=== PATIENT | female | born 1945 | race Caucasian/White ===

== ENCOUNTER → 2017-03-27 | Outpatient (CLI) | payer MEDICARE, OTHER ==
[~2017-03-27] MED LIST: ACET-2469 PO; ACHD5005 PO; ACID1TAB5 PO; ALPR1T PO; ALPR1TAB7 PO; AMIO200T2 PO; AMLO5TAB2 PO; APIX5TAB PO; ATEN25TA PO; BUSP5TAB59 PO; CPR250T PO; ENAL2.5T PO; ESCI20TA38 PO; KCL20TCR PO; LISI1TAB PO; MELO15TA14 PO; METO-272 PO; METR500T PO; NFPRILOC40 PO; PANT40TA PO; PRAV40TA PO; PRD20T PO; PRM25T PO; SERT50TA2 PO; TRAM50TA2 PO; [UNRECOGNIZED DRUG - OTHER] PO
--- NOTE | 2017-03-27 14:22 | Diagnostic Imaging Report ---
EXAMINATION: DEXA scan. INDICATION: Osteopenia. TECHNIQUE: Bone mineral density estimated based on dual energy radiography over the lumbar spine and femoral necks, was performed. FINDINGS: T score in the left femoral neck is -2.3 and on the right side is -2.3. The lumbar spine could not be measured due to fusion hardware. IMPRESSION: Osteopenia. Dictated by: Dictated on workstation # [id number]
== END ==
LOC: RAD 09:33
PROVIDERS: ATTEND Internal Medicine
DX: M85.89 Other specified disorders of bone density and structure, multiple sites (principal)
CPT/HCPCS: 77080

== ENCOUNTER 2017-06-04 21:36 | Emergency (ER) | payer MEDICARE, OTHER ==
[~2017-06-04] VITALS: Ht 162.6 cm; Wt 72.6 kg
[~2017-06-04 21:36] MED LIST changes: -METO-272 PO; +METO-370 PO
[2017-06-04] MEDS ORDERED: cloNIDine 0.1 MG (CATAPRES) TAB PO ONE (22:15)
[2017-06-04] MEDS ORDERED: meTOproloL SUCCINATE 50 MG (TOPROL XL) TAB PO SCH (22:15)
[2017-06-04] MEDS ORDERED: TRAM50TA2 (22:27)
[2017-06-04] MEDS ORDERED: FENO200C (22:27)
[2017-06-04] MEDS ORDERED: ENAL20TA PO (22:27)
--- NOTE | 2017-06-04 22:41 | ED General ---
General Chief Complaint: Cardiac/General Problems Stated Complaint: HIGH BLOOD PRESSURE Nursing Triage Note: Amb to ED to report she checked her BP this evening after having an elevated BP at the orthopedic office this afternoon. Pt came to be evaluated for management of elevated BP with any sx present. Nursing Sepsis Screen: No Definite Risk Source of Information: Patient Exam Limitations: No Limitations History of Present Illness Time Seen by Provider: 22:06 Initial Comments Here with report of elevated blood pressure tonight. She checked it this evening because she was noted to have elevated blood pressure at her doctor's office today. It was still elevated tonight. She has not had her night dose of Toprol-XL. Denies chest pain, breathing problems, nausea, vomiting or sweating. He states that she would not have known that her blood pressure was elevated as she had not checked it. She has had recent adjustments of her blood pressure medicines due to resistance. Timing/Duration: 1-3 Hours Severity: Mild Associated Systoms: No Chest Pain, No Cough, No Diaphoresis, No Fever/Chills, No Headaches, No Nausea/Vomiting, No Shortness of Air, No Weakness Allergies and Home Medications Allergies Coded Allergies: amoxicillin (Verified Allergy, Unknown, hives, 11/09/16) clavulanic acid (Verified Allergy, Unknown, hives, 11/09/16) Home Medications Acetaminophen/Diphenhydramine 1 Each Tablet, 1 TAB PO HS, (Reported) Alprazolam 1 Mg Tablet, 1 MG PO BID, (Reported) Amiodarone HCl 200 Mg Tablet, 400 MG PO BID, #60 Ref 4 Prescribed by: RENÉ GR on 02/21/16 1529 Apixaban 5 Mg Tablet, 5 MG PO BID, (Reported) Buspirone HCl 5 Mg Tablet, 5 MG PO DAILY, (Reported) Enalapril Maleate 20 Mg Tablet, #30 (Reported) Fenofibrate,Micronized 200 Mg Capsule, #30 (Reported) Metoprolol Succinate 50 Mg Tab.er.24h, 50 MG PO BID, (Reported) Omeprazole 40 Mg Cap, 40 MG PO DAILY, (Reported) Pravastatin Sodium 40 Mg Tablet, 40 MG PO HS, (Reported) Sertraline HCl 50 Mg Tablet, 50 MG PO DAILY, (Reported) Tramadol HCl 50 Mg Tablet, #40 (Reported) Constitutional: see HPI, No chills, No fever EENTM: no symptoms reported Respiratory: no symptoms reported Cardiovascular: see HPI Gastrointestinal: no symptoms reported Genitourinary: no symptoms reported Musculoskeletal: no symptoms reported All Other Systems Reviewed Negative Unless Noted: Yes Past Ycdacng-Stpxhw-Aumhar Hx Patient Social History Alcohol Use: Rarely Uses Recreational Drug Use: No Smoking Status: Never a Smoker Recent Foreign Travel: No Contact w/Someone Who Travel: No Recent Infectious Disease Expo: No Recent Hopitalizations: No Immunizations Up To Date Tetanus Booster (TDap): Unknown PED Vaccines UTD: Yes Date of Pneumonia Vaccine: Feb 03, 2013 Date of Influenza Vaccine: Oct 16, 2016 Seasonal Allergies Seasonal Allergies: No Surgeries HX Surgeries: Yes (BACK SURGERY 8 YEARS AGO, BILAT TKR) Surgeries: Appendectomy Respiratory Hx Respiratory Disorders: No Cardiovascular Hx Cardiac Disorders: Yes (IMPLANTED HEART MONITOR PLACED BEGINNING OF 2015) Cardiac Disorders: Hypertension Neurological Hx Neurological Disorders: No Reproductive System Hx Reproductive Disorders: No Sexually Transmitted Disease: No Genitourinary Hx Genitourinary Disorders: No Gastrointestinal Hx Gastrointestinal Disorders: Yes Gastrointestinal Disorders: Gastroesophageal Reflux Musculoskeletal Hx Musculoskeletal Disorders: Yes (BACK SURGERY 8 YEARS AGO-MILD PAIN-6 SCREWS AND 2 RODS) Musculoskeletal Disorders: Arthritis, Chronic Back Pain Endocrine Hx Endocrine Disorders: No HEENT HX ENT Disorders: No Cancer Hx Cancer: No Psychosocial Hx Psychiatric Problems: Yes Behavioral Health Disorders: Anxiety, Depression Integumentary HX Skin/Integumentary Disorder: No Blood Transfusions Hx Blood Disorders: No Adverse Reaction to a Blood Tr: Yes (WHEN SHE HAD BACK SURGERY, NO REACTION) Reviewed Nursing Assessment Reviewed/Agree w Nursing PMH: Yes Family Medical History Significant Family History: Heart Disease Family Medial History: Cardiovascular disease 19 FATHER (mi) Dementia 19 MOTHER Physical Exam Vital Signs Vital Sign - Last 12Hours 06/04/17 21:52 Temp 98.9 Pulse 70 Resp 20 B/P (MAP) 200/119 Pulse Ox 97 O2 Delivery Room Air Capillary Refill : Less Than 3 Seconds General Appearance: No Apparent Distress, WD/WN HEENT: PERRL/EOMI, Pharynx Normal Neck: Non Tender, Supple Respiratory: Lungs Clear, Normal Breath Sounds Cardiovascular: Regular Rate, Rhythm, No Murmur Gastrointestinal: Non Tender, Soft Back: Normal Inspection, No CVA Tenderness, No Vertebral Tenderness Extremity: Non Tender, No Calf Tenderness Neurologic/Psychiatric: Alert, Oriented x3, No Motor/Sensory Deficits Skin: Normal Color, Warm/Dry Progress/Results/Core Measures Results/Orders My Orders Orders - ALTON RICHARDS MD Clonidine Tablet (Catapres Tablet) (06/04/17 22:15) Metoprolol Succinate (Xl) Tab (Toprol Xl (06/04/17 22:15) Medications Given in ED Current Medications Medications Dose Ordered Sig/Rachel Route Start Time Stop Time Status Last Admin Dose Admin Clonidine HCl 0.1 mg ONCE ONCE PO 06/04/17 22:15 06/04/17 22:16 DC 06/04/17 22:10 0.1 MG Vital Signs/I&O Vital Sign - Last 12Hours 06/04/17 21:52 Temp 98.9 Pulse 70 Resp 20 B/P (MAP) 200/119 Pulse Ox 97 O2 Delivery Room Air Blood Pressure Mean: 146 Progress Note : Progress Note Seen and evaluated. Clonidine 0.1 mg by mouth. Toprol-XL 50 mg by mouth. Monitor patient. 2251: Blood pressure 152/90 with heart rate is 62. No distress. Discharge home with return precautions. Patient verbalize understanding instructions and agreement with plan. Departure Impression Impression: Primary Impression: Hypertension, uncontrolled Disposition: 01 HOME, SELF-CARE Condition: Improved Departure-Patient Inst. Referrals: VALENCIA DUNN DO (PCP/Family) Primary Care Physician Patient Instructions: High Blood Pressure (DC) Add. Discharge Instructions: All discharge instructions reviewed with patient and/or family. Voiced understanding. Continue medications as directed. Call Dr. Dunn in the morning for recheck tomorrow or the next day. Return for worsening, fever, vomiting, weakness, breathing problems, chest pain or other concerns as needed. ALTON RICHARDS MD Jun 04, 2017 22:41
[2017-06-04 23:13] VITALS: BP 157/100
--- OUTSIDE RECORDS SUMMARY | 2017-06-12 02:20 | XMS REPORT | Clinical Summary ---
Author Author [facility] Organization [facility] Address Unknown Phone Unavailable Care Team Providers Care Medication Coordinator Name Role Phone PCP Unavailable Source Comments Some departments are not documenting in the electronic medical record. If you do not see the information that you expected, contact Release of Information in the Health Information Management department at [phone] for further assistance in locating additional records.[facility] Allergies Active Allergy Reactions Severity Noted Date Comments Aspirin UNKNOWN Low 04/02/2017 Barbiturates UNKNOWN Low 04/02/2017 Carbamazepine UNKNOWN Low 04/02/2017 Iodinated Contrast- Oral UNKNOWN Low 04/02/2017 And Iv Dye Ibuprofen UNKNOWN Low 04/02/2017 Penicillin G UNKNOWN Low 04/02/2017 Phenytoin Sodium Extended UNKNOWN Low 04/02/2017 Sulfa (Sulfonamide UNKNOWN Low 04/02/2017 Antibiotics) Tetracycline UNKNOWN Low 04/02/2017 Current Medications Prescription Sig. Disp. Refills Start End Date Status Date alprazolam (XANAX) 1 mg Take 1 mg by mouth twice Active PO tablet daily. 1 BY MOUTH TWICE A DAY ACETAMINOPHEN/DIPHENHYDRA Take by mouth. Active MINE (TYLENOL PM PO) amiodarone (CORDARONE) Take 200 mg by mouth Active 200 mg tablet daily. apixaban (ELIQUIS) 5 mg Take 5 mg by mouth twice Active tab tablet daily. enalapril (VASOTEC) 2.5 Take 2.5 mg by mouth Active mg tablet daily. magnesium oxide (MAG-OX) Take 400 mg by mouth Active 400 mg tablet daily. metoprolol XL (TOPROL XL) Take 50 mg by mouth Active 50 mg tablet daily. omeprazole DR(+) Take 40 mg by mouth Active (PRILOSEC) 40 mg capsule daily. pravastatin (PRAVACHOL) Take 40 mg by mouth Active 40 mg tablet daily. sertraline (ZOLOFT) 50 mg Take 50 mg by mouth Active tablet daily. busPIRone (BUSPAR) 5 mg Take 5 mg by mouth daily. 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 Encounters Date Type Specialty Care Team Description 04/02/2017 Procedure visit Otolaryngology Kayla Baldwin MD Adductor spasmodic dysphonia with tremor (Primary Dx);Dysphonia from Last 3 Months Family History Medical History Relation Name Comments Angina Father Heart Attack Father High Cholesterol Father Anxiety Mother Depression Mother Hypertension Mother Mental Illness Mother Relation Name Status Comments Father Mother Social History Tobacco Use Types Packs/Day Years Used Date Never Smoker Smokeless Tobacco: Never Used Alcohol Use Drinks/Week oz/Week Comments Yes 1 Glasses of 0.6 wine Sex Assigned at Date Recorded Not on file Last Filed Vital Signs Vital Sign Reading Time Taken Blood Pressure 191/100 04/02/2017 10:48 AM CDT Pulse 64 04/02/2017 10:48 AM CDT Temperature - - Respiratory Rate - - Oxygen Saturation - - Inhaled Oxygen - - Concentration Weight 74.8 kg (165 lb) 09/04/2016 9:52 AM CDT Height 165.1 cm (5' 5") 09/04/2016 9:52 AM CDT Body Mass Index 27.46 09/04/2016 9:52 AM CDT Plan of Treatment Health Maintenance Due Date Last Done Comments HEPATITIS C SCREENING 1946 PHYSICAL (COMPREHENSIVE) 1953 EXAM PERTUSSIS VACCINE 1957 TETANUS VACCINE 1963 BREAST CANCER SCREENING 1986 COLORECTAL CANCER 1996 SCREENING SHINGLES VACCINE 2006 OSTEOPOROSIS SCREENING 2011 PREVNAR/PNEUMOVAX (#1) 2011 INFLUENZA VACCINE 07/18/2017 Results * DE CHEMODENERVATION MUSCLE LARYNX UNILAT W/EMG (04/02/2017 11:04 AM) Specimen Performing Laboratory IN CLINIC from Last 3 Months
--- OUTSIDE RECORDS SUMMARY | 2017-06-12 02:20 | XMS REPORT ---
Author Author MENDOZA CATHLEEN [facility] Address Unknown Care Team Providers Care Hims Manager Name Role Phone CATHLEEN DONALDSON Unavailable PROBLEMS Type Condition ICD9-CM Code MSN86-EB Code Onset Dates Condition Status SNOMED Code Problem Pain in joint, pelvic region and thigh 719.45 Active 193848152 Assessment Dental examination Z01.20 Sep, Active 856896870 ALLERGIES Substance Reaction Event Type Date Status N.K.D.A. Unknown Non Drug Allergy Sep, Unknown SOCIAL HISTORY No smoking Hx information available PLAN OF CARE VITAL SIGNS Blood pressure systolic 151 mmHg 2016-09-17 Blood pressure diastolic 94 mmHg 2016-09-17 MEDICATIONS Medication Instructions Dosage Frequency Start Date End Date Duration Status Atenolol Active hydrochlorothiazide-lisinopril 20-12.5 mg take 1 tablet by Oral route 2 times per day May, Active BusPIRone HCl Active Norvasc Active Lexapro 20 mg take 1 tablet (20 mg) by oral route once daily May, Active Enalapril Maleate Active Metoprolol-HCTZ ER Active pravastatin 40 mg 1 tablet by Oral route 1 time per dayTake at bedtime. Avoid grapefruit juice and products with grapefruit. Jan, Active Xanax 1 mg 1 tablet by Oral route 2 times per day Apr, Active Aciphex 20 mg take 1 tablet (20 mg) by oral route once daily after the morning meal May, Active Eliquis Active Prilosec Active Sertraline HCl Active Zoloft Active Alprazolam Active Crestor Active RESULTS No Results PROCEDURES Procedure Date Ordered Related Diagnosis Body Site LTD ORAL EVALUATION - PROBLEM FOCUS Sep 17, 2016 INTRAORL-PERIAPICAL 1 FILM 57542 Sep 17, 2016 IMMUNIZATIONS No Known Immunizations
--- OUTSIDE RECORDS SUMMARY | 2017-06-12 02:21 | XMS REPORT ---
Author CATHLEEN [facility] [employer] Address Unknown Phone Unavailable Care Team Providers Care Line Painting Machine Operator Name Role Phone CATHLEEN DONALDSON Unavailable Allergies, Adverse Reactions, Alerts Substance Reaction Event Type N.K.D.A. Info Not Available Non Drug Allergy Problems Problem Type Condition Code Onset Dates Condition Status Assessment Dental examination Z01.20 Active Problem Pain in joint, pelvic region and thigh 719.45 Active Medications Medication Code System Code Instructions Start Date End Date Status Dosage Aciphex [facility] [address]-55 20 mg 1 ERT orally once a day May 21, 2012 take 1 tablet (20 mg) by oral route once daily after the morning meal hydrochlorothiazide-lisinopril [facility] 0 20-12.5 mg May 21, 2012 take 1 tablet by Oral route 2 times per day Zoloft [facility] 0 not defined BusPIRone HCl [facility] [address]-85 not defined Lexapro [facility] [address]-52 20 mg 1 TAB orally once a day May 21, 2012 take 1 tablet (20 mg) by oral route once daily Xanax [facility] [address]-08 1 mg 1 tab(s) orally 3 times a day May 07, 2012 1 tablet by Oral route 2 times per day Eliquis [facility] [address]-18 not defined Atenolol [facility] [address]-58 not defined Prilosec [facility] [address]-21 not defined Norvasc [facility] [address]-44 not defined pravastatin [facility] [address]-68 40 mg January 28, 2012 1 tablet by Oral route 1 time per dayTake at bedtime. Avoid grapefruit juice and products with grapefruit. Procedures Procedure Coding System Code Date Billing Notes on claim CPT-4 EC109 May 30, 2016 RSN COMPOS-4/> SURF/W/INCISAL ANG CPT-4 D2335 May 30, 2016 Vital Signs Date/Time: May 30, 2016 Blood Pressure Diastolic 93 mmHg Blood Pressure Systolic 142 mmHg Height 65 in Results No Known Results Summary Purpose [employer] Submission
--- OUTSIDE RECORDS SUMMARY | 2017-06-12 02:21 | XMS REPORT ---
Author Author CATHLEEN DONALDSON [employer] Address Unknown Phone Unavailable Care Team Providers Care Finishing Machine Tender Name Role Phone CATHLEEN DONALDSON CP Unavailable Allergies, Adverse Reactions, Alerts Substance Reaction Event Type N.K.D.A. Info Not Available Non Drug Allergy Problems Problem Type Condition Code Onset Dates Condition Status Assessment Encounter for dental examination Z01.20 Active Problem Pain in joint, pelvic region and thigh 719.45 Active Medications Medication Code System Code Instructions Start Date End Date Status Dosage BusPIRone HCl [facility] [address]-69 not defined Abilify [facility] [address]-49 2 mg 1 TAB orally once a day May 08, 2012 1 tablet by Oral route 1 time per day Aciphex [facility] [address]-25 20 mg 1 ERT orally once a day May 21, 2012 take 1 tablet (20 mg) by oral route once daily after the morning meal pravastatin [facility] [address]-54 40 mg January 28, 2012 1 tablet by Oral route 1 time per dayTake at bedtime. Avoid grapefruit juice and products with grapefruit. Norvasc [facility] [address]-95 not defined Xanax [facility] [address]-61 1 mg 1 tab(s) orally 3 times a day May 07, 2012 1 tablet by Oral route 2 times per day Lexapro [facility] [address]-59 20 mg 1 TAB orally once a day May 21, 2012 take 1 tablet (20 mg) by oral route once daily Atenolol [facility] [address]-48 not defined Mobic [facility] [address]-78 not defined hydrochlorothiazide-lisinopril [facility] 0 20-12.5 mg May 21, 2012 take 1 tablet by Oral route 2 times per day Mobic [facility] [address]-77 15 mg Quantity Amount, Route, and Frequency Sep 15 mg by Oral route 1 time per dayNo other ibuprofen products with this Prilosec [facility] [address]-25 not defined Zoloft NDC 0 not defined Procedures Procedure Coding System Code Date RESIN COMPOS - 1 SURFACE POSTERIOR CPT-4 D2391 Nov 21, 2015 Vital Signs Date/Time: Nov 21, 2015 Blood Pressure Diastolic 65 mmHg Blood Pressure Systolic 109 mmHg Height 65 in Results No Known Results Summary Purpose [employer] Submission
--- OUTSIDE RECORDS SUMMARY | 2017-06-12 02:21 | XMS REPORT ---
Author TENISHA Collado [facility] [employer] Address Unknown Phone Unavailable Care Team Providers Care Wellness Educator Name Role Phone TENISHA GILES Unavailable Allergies, Adverse Reactions, Alerts Substance Reaction Event Type N.K.D.A. Info Not Available Non Drug Allergy Problems Problem Type Condition Code Onset Dates Condition Status Assessment Encounter for dental examination Z01.20 Active Problem Pain in joint, pelvic region and thigh 719.45 Active Medications Medication Code System Code Instructions Start Date End Date Status Dosage hydrochlorothiazide-lisinopril [facility] 0 20-12.5 mg May 21, 2012 take 1 tablet by Oral route 2 times per day Mobic [facility] [address]-74 not defined BusPIRone HCl [facility] [address]-00 not defined Norvasc [facility] [address]-01 not defined Amoxicillin [facility] [address]-94 500 MG Orally 3 times a day Sep 27, 2015 Oct 04, 2015 1 capsule Aciphex [facility] [address]-56 20 mg 1 ERT orally once a day May 21, 2012 take 1 tablet (20 mg) by oral route once daily after the morning meal Zoloft [facility] 0 not defined Prilosec [facility] [address]-75 not defined Abilify [facility] [address]-64 2 mg 1 TAB orally once a day May 08, 2012 1 tablet by Oral route 1 time per day Xanax [facility] [address]-69 1 mg 1 tab(s) orally 3 times a day May 07, 2012 1 tablet by Oral route 2 times per day Atenolol [facility] [address]-61 not defined pravastatin [facility] [address]-64 40 mg January 28, 2012 1 tablet by Oral route 1 time per dayTake at bedtime. Avoid grapefruit juice and products with grapefruit. Lexapro [facility] [address]-68 20 mg 1 TAB orally once a day May 21, 2012 take 1 tablet (20 mg) by oral route once daily [facility] [address]-20 15 mg Quantity Amount, Route, and Frequency Sep 15 mg by Oral route 1 time per dayNo other ibuprofen products with this Procedures Procedure Coding System Code Date INTRAORL-PERIAPICAL 1 FILM 03851 CPT-4 D0220 Sep 27, 2015 RESIN COMPOS - ONE SURFACE ANTERIOR CPT-4 D2330 Sep 27, 2015 LTD ORAL EVALUATION - PROBLEM FOCUS CPT-4 D0140 Sep 27, 2015 RESIN COMPOS - ONE SURFACE ANTERIOR CPT-4 D2330 Sep 27, 2015 Vital Signs Date/Time: Sep 27, 2015 Blood Pressure Diastolic 80 mmHg Blood Pressure Systolic 126 mmHg Results No Known Results Summary Purpose [employer] Submission
--- OUTSIDE RECORDS SUMMARY | 2017-06-12 02:21 | XMS REPORT ---
Author Author TENISHA GILES Organization [employer] Address Unknown Phone Unavailable Care Team Providers Care Prisoner Classification Interviewer Name Role Phone TENISHA GILES CP Unavailable Allergies No Known Allergies Problems Problem Type Condition Code Onset Dates Condition Status Assessment Encounter for dental examination Z01.20 Active Problem Pain in joint, pelvic region and thigh 719.45 Active Medications No Known Medications Procedures Procedure Coding System Code Date Billing Notes on claim CPT-4 EC109 Nov 29, 2015 Dental no charge CPT-4 D0099 Nov 29, 2015 Results No Known Results Summary Purpose [employer] Submission
--- OUTSIDE RECORDS SUMMARY | 2017-06-12 02:21 | XMS REPORT ---
Author Author CATHLEEN DONALDSON [employer] Address Unknown Phone Unavailable Care Team Providers Care Social Work Coordinator Name Role Phone CATHLEEN DONALDSON CP Unavailable Allergies No Known Allergies Problems Problem Type Condition Code Onset Dates Condition Status Assessment Encounter for dental examination Z01.20 Active Problem Pain in joint, pelvic region and thigh 719.45 Active Medications No Known Medications Procedures Procedure Coding System Code Date Dental no charge CPT-4 D0099 January 18, 2016 Results No Known Results Summary Purpose [employer] Submission
--- OUTSIDE RECORDS SUMMARY | 2017-06-12 02:22 | XMS REPORT | Continuity of Care Document ---
Author Author [facility] Address Unknown Phone Unavailable Allergies Active Description Code Type Severity Reaction Onset Reported/Identified Relationship to Patient Clinical Status Yes No Known Drug Allergies [id number] Drug Allergy Unknown N/ A 08/02/2008 Yes No Known Allergies No Known Allergies Drug Allergy Unknown N/A 03/06/2016 Yes amoxicillin [id number] Drug Allergy Unknown hives 11/09/2016 Yes clavulanic acid [id number] Drug Allergy Unknown hives 11/09/2016 Medications Problems Date Dx Coded Attending Type Code Diagnosis Diagnosed By 05/24/2010 HUMAIRA ENCISO APRN 300.00 ANXIETY UNSPEC 05/24/2010 HUMAIRA ENCISO APRN 401.1 HYPERTENSION, BENIGN ESSENTIAL 05/24/2010 HUMAIRA ENCISO APRN 733.00 OSTEOPOROSIS UNSPECIFIED 06/07/2010 HUMAIRA ENCISO APRN 300.4 DEPRESSION WITH ANXIETY 07/12/2010 HUMAIRA ENCISO APRN 716.90 ARTHRITIS/ ARTHROPATHY, UNSPECIFIED 07/30/2010 HUMAIRA ENCISO APRN 627.3 VAGINITIS POSTMENOPAUSAL ATROPHIC 07/30/2010 HUMAIRA ENCISO APRN V72.31 DIVISION PLANT ENGINEER EXAM, ROUTINE 09/05/2010 HUMAIRA ENCISO APRN 627.1 POSTMENOPAUSAL BLEEDING 09/05/2010 HUMAIRA ENCISO APRN 795.01 Cerv Pap Smear (+) Atyp Squamous Cells Undetermined Signif 10/17/2010 HUMAIRA ENCISO APRN V58.69 LONG-TERM (CURRENT) USE OF OTHER MEDICATIONS 11/27/2010 Ot 784.40 11/27/2010 Ot V57.3 01/22/2011 HUMAIRA ENCISO APRN 729.1 MYALGIA AND MYOSITIS UNSPECIFIED 03/14/2011 HUMAIRA ENCISO APRN 272.4 OTHER AND UNSPECIFIED HYPERLIPIDEMIA 03/14/2011 HUMAIRA ENCISO APRN 787.1 HEARTBURN 01/27/2012 HUMAIRA ENCISO APRN 719.45 PAIN IN JOINT INVOLVING PELVIC REGION AND THIGH 02/03/2013 Ot 038.9 SEPTICEMIA NOS 02/03/2013 Ot 272.4 HYPERLIPIDEMIA NEC/NOS 02/03/2013 Ot 276.1 HYPOSMOLALITY 02/03/2013 Ot 276.8 HYPOPOTASSEMIA 02/03/2013 Ot 276.9 ELECTROLYT/FLUID DIS NEC 02/03/2013 Ot 285.9 ANEMIA NOS 02/03/2013 Ot 300.00 ANXIETY STATE NOS 02/03/2013 Ot 311 DEPRESSIVE DISORDER NEC 02/03/2013 Ot 401.9 HYPERTENSION NOS 02/03/2013 Ot 530.81 ESOPHAGEAL REFLUX 02/03/2013 Ot 540.1 ABSCESS OF APPENDIX 02/03/2013 Ot 577.0 ACUTE PANCREATITIS 02/03/2013 Ot 584.9 ACUTE RENAL FAILURE, UNSPECIFIED 02/03/2013 Ot 722.52 LUMB/LUMBOSAC DISC DEGEN 02/03/2013 Ot 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 02/03/2013 Ot 995.92 SEVERE SEPSIS 02/03/2013 Ot V03.82 PROPHYLACTIC VACC AGAINST STREPTOCOCCUS 02/19/2013 Ot 008.45 INTESTINAL INFECTION DUE TO CLOSTRIDIUM 02/19/2013 Ot 276.50 VOLUME DEPLETION, UNSPECIFIED 02/19/2013 Ot 276.8 HYPOPOTASSEMIA 02/19/2013 Ot 285.9 ANEMIA NOS 02/19/2013 Ot 300.00 ANXIETY STATE NOS 02/19/2013 Ot 311 DEPRESSIVE DISORDER NEC 02/19/2013 Ot 401.9 HYPERTENSION NOS 02/19/2013 Ot 458.9 HYPOTENSION NOS 02/19/2013 Ot V58.69 OTH MED,LT,CURRENT USE 09/20/2015 Ot 275.41 10/18/2015 HANNAH PRADHAN MD Ot M54.10 10/25/2015 HANNAH PRADHAN MD Ot M54.10 10/30/2015 RENÉ GR MD Ot E78.5 HYPERLIPIDEMIA, UNSPECIFIED 10/30/2015 RENÉ GR MD Ot F41.9 ANXIETY DISORDER, UNSPECIFIED 10/30/2015 RENÉ GR MD Ot I10 ESSENTIAL (PRIMARY) HYPERTENSION 10/30/2015 RENÉ GR MD Ot I25.10 ATHSCL HEART DISEASE OF [place] CORONARY 10/30/2015 RENÉ GR MD Ot K21.9 GASTRO-ESOPHAGEAL REFLUX DISEASE WITHOUT 10/30/2015 RENÉ GR MD Ot R00.2 PALPITATIONS 10/30/2015 RENÉ GR MD Ot R07.89 OTHER CHEST PAIN 10/30/2015 RENÉ GR MD Ot Z79.899 OTHER VEGETABLE FARMER (CURRENT) DRUG THERAPY 11/24/2015 YUVAL ERIC MD Ot M47.816 SPONDYLOSIS W/O MYELOPATHY OR RADICULOPA 11/24/2015 YUVAL ERIC MD Ot M53.3 SACROCOCCYGEAL DISORDERS, NOT ELSEWHERE 11/24/2015 YUVAL ERIC MD Ot 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 SYNDROME, NOT ELSEWHERE 11/24/2015 YUVAL ERIC MD Ot Z79.899 OTHER VEGETABLE FARMER (CURRENT) DRUG THERAPY 12/01/2015 YUVAL ERIC MD Ot M47.816 SPONDYLOSIS W/O MYELOPATHY OR RADICULOPA 12/01/2015 YUVAL ERIC MD Ot M53.3 SACROCOCCYGEAL DISORDERS, NOT ELSEWHERE 12/01/2015 YUVAL ERIC MD, Ot 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 SYNDROME, NOT ELSEWHERE 12/01/2015 YUVAL ERIC MD Ot Z79.899 OTHER [facility] (CURRENT) DRUG THERAPY 01/03/2016 RENÉ GR MD Ot E78.5 HYPERLIPIDEMIA, UNSPECIFIED 01/03/2016 RENÉ GR MD Ot I10 ESSENTIAL (PRIMARY) HYPERTENSION 01/03/2016 RENÉ RG MD Ot R00.2 PALPITATIONS 01/03/2016 RENÉ GR MD Ot R55 SYNCOPE AND COLLAPSE 01/03/2016 RENÉ GR MD Ot Z79.899 OTHER VEGETABLE FARMER (CURRENT) DRUG THERAPY 02/21/2016 RENÉ GR MD Ot E78.5 HYPERLIPIDEMIA, UNSPECIFIED 02/21/2016 RENÉ GR MD Ot F41.9 ANXIETY DISORDER, UNSPECIFIED 02/21/2016 RENÉ GR MD Ot I10 ESSENTIAL (PRIMARY) HYPERTENSION 02/21/2016 RENÉ GR MD Ot I25.10 ATHSCL HEART DISEASE OF [place] CORONARY 02/21/2016 RENÉ GR MD Ot I42.9 CARDIOMYOPATHY, UNSPECIFIED 02/21/2016 RENÉ GR MD Ot I47.2 VENTRICULAR TACHYCARDIA 02/21/2016 MAILE HONG, RENÉ Selby Ot I48.0 PAROXYSMAL ATRIAL FIBRILLATION 02/21/2016 MAILE HONG, RENÉ Selby Ot I48.92 UNSPECIFIED ATRIAL FLUTTER 02/21/2016 RENÉ GR MD Ot I50.22 CHRONIC SYSTOLIC (CONGESTIVE) HEART FAIL 02/21/2016 RENÉ GR MD Ot I65.23 OCCLUSION AND STENOSIS OF BILATERAL [place] 02/21/2016 RENÉ GR MD Ot K21.9 GASTRO-ESOPHAGEAL REFLUX DISEASE WITHOUT 02/23/2016 RENÉ GR MD Ot E78.5 02/23/2016 RENÉ GR MD Ot F41.9 02/23/2016 RENÉ GR MD Ot I10 02/23/2016 RENÉ GR MD Ot I25.10 02/23/2016 RENÉ GR MD Ot I42.9 02/23/2016 RENÉ GR MD Ot I47.2 02/23/2016 RENÉ GR MD Ot I48.0 02/23/2016 RENÉ GR MD Ot I48.92 02/23/2016 RENÉ GR MD Ot I50.22 02/23/2016 RENÉ GR MD Ot I65.23 02/23/2016 RENÉ GR MD Ot K21.9 02/23/2016 RENÉ GR MD Ot E78.5 02/23/2016 RENÉ GR MD Ot F41.9 02/23/2016 RENÉ GR MD Ot I10 02/23/2016 RENÉ GR MD Ot I25.10 02/23/2016 RENÉ GR MD Ot I42.9 02/23/2016 RENÉ GR MD Ot I47.2 02/23/2016 RENÉ GR MD Ot I48.0 02/23/2016 RENÉ GR MD Ot I48.92 02/23/2016 RENÉ GR MD Ot I50.22 02/23/2016 RENÉ GR MD Ot I65.23 02/23/2016 RENÉ GR MD Ot K21.9 04/12/2016 YUVAL ERIC MD Ot M47.816 SPONDYLOSIS W/O MYELOPATHY OR RADICULOPA 04/12/2016 YUVAL ERIC MD Ot M51.16 INTERVERTEBRAL DISC DISORDERS W RADICULO 04/12/2016 YUVAL ERIC MD Ot M53.3 SACROCOCCYGEAL DISORDERS, NOT ELSEWHERE 04/12/2016 YUVAL ERIC MD Ot M70.62 TROCHANTERIC BURSITIS, LEFT HIP 04/12/2016 YUVAL ERIC MD Ot 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 SYNDROME, NOT ELSEWHERE 04/12/2016 YUVAL ERIC MD Ot Z79.899 OTHER [facility] (CURRENT) DRUG THERAPY 04/24/2016 YUVAL ERIC MD, Ot M47.816 SPONDYLOSIS W/O MYELOPATHY OR RADICULOPA 04/24/2016 YUVAL ERIC MD, Ot M51.16 INTERVERTEBRAL DISC DISORDERS W RADICULO 04/24/2016 YUVAL ERIC MD, Ot M53.3 SACROCOCCYGEAL DISORDERS, NOT ELSEWHERE 04/24/2016 YUVAL ERIC MD, Ot M70.62 TROCHANTERIC BURSITIS, LEFT HIP 04/24/2016 YUVAL ERIC MD, Ot 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 SYNDROME, NOT ELSEWHERE 04/24/2016 YUVAL ERIC MD, Ot Z79.899 OTHER VEGETABLE FARMER (CURRENT) DRUG THERAPY 11/09/2016 SHANNON FOSTER Ot L50.0 ALLERGIC URTICARIA 11/09/2016 SHANNON FOSTER Ot T36.0X5A ADVERSE EFFECT OF PENICILLINS, INITIAL E 11/09/2016 Ot 275.41 HYPOCALCEMIA 11/09/2016 HANNAH PRADHAN MD Ot M54.10 RADICULOPATHY, SITE UNSPECIFIED 03/25/2017 VALENCIA WILSON DO Ot N95.1 MENOPAUSAL AND FEMALE CLIMACTERIC STATES 03/27/2017 VALENCIA WILSON DO, Ot M81.0 AGE-RELATED OSTEOPOROSIS W/O CURRENT PAT 03/27/2017 VALENCIA WILSON DO, Ot M81.0 AGE-RELATED OSTEOPOROSIS W/O CURRENT PAT 03/27/2017 VALENCIA WILSON DO, Ot M81.0 AGE-RELATED OSTEOPOROSIS W/O CURRENT PAT 03/28/2017 VALENCIA WILSON DO Ot M85.89 OTH DISRD OF BONE DENSITY AND STRUCTURE, 04/17/2017 WILSON VALENCIA ALICIA Ot M85.89 [facility] DISRD OF BONE DENSITY AND STRUCTURE, 06/06/2017 ALTON RICHARDS MD, Ot F32.9 MAJOR DEPRESSIVE DISORDER, SINGLE EPISOD 06/06/2017 ALTON RICHARDS MD, Ot F41.9 ANXIETY DISORDER, UNSPECIFIED 06/06/2017 ALTON RICHARDS MD, Ot I10 ESSENTIAL (PRIMARY) HYPERTENSION 06/06/2017 ALTON RICHARDS MD, Ot K21.9 GASTRO-ESOPHAGEAL REFLUX DISEASE WITHOUT 06/06/2017 ALTON RICHARDS MD, Ot M19.90 UNSPECIFIED OSTEOARTHRITIS, UNSPECIFIED 06/06/2017 ALTON RICHARDS MD, Ot R03.0 ELEVATED BLOOD-PRESSURE READING, W/O [place]AVE[place] 06/06/2017 ALTON RICHARDS MD, Ot Z90.49 ACQUIRED ABSENCE OF OTHER SPECIFIED PART 06/06/2017 ALTON RICHARDS MD, Ot Z95.818 PRESENCE OF OTHER CARDIAC IMPLANTS AND G 06/06/2017 ALTON RICHARDS MD, Ot Z98.890 OTHER SPECIFIED POSTPROCEDURAL STATES Procedures Code Description Performed By Performed On 47.01 LAPAROSCOP APPENDECTOMY 01/29/2013 Results Test Result Range CBC - 03/07/16 06:05 MEAN CELL HGB 31.2 pg 27.0-33.0 MEAN CELL HGB CONCENTRATION 33.5 g/dL 32.0-37.0 MEAN CELL VOLUME 93.1 fl 80.0-100.0 RED BLOOD CELL 3.94 m/cumm 4.00-6.00 RED CELL DISTRIBUTION WIDTH 14.4 % 11.0- 15.6 WHITE BLOOD CELL 6.1 k/cumm 5.0-10.0 HEMOGLOBIN 12.3 gm/dL 12.0-16.0 HEMATOCRIT 36.7 % 37.0-47.0 PLATELET COUNT 276 k/cumm 150-450 PROTHROMBIN TIME WITH INR - 03/07/16 06:05 INTERNATIONAL NORMAL RATIO 1.0 0.9-1.1 PROTHROMBIN TIME 11.1 sec 9.3-12.2 PARTIAL THROMBOPLASTIN TIME - 03/07/16 06:05 PARTIAL THROMBOPLASTIN TIME 35 sec 23-39 METABOLIC PANEL, BASIC - 03/07/16 06:05 POTASSIUM 3.4 mmol/L 3.5-5.3 EST GFR (MDRD) > 60 mL/min > 59 ANION GAP 6 mmol/L 5-15 GLUCOSE 91 mg/dL 70-99 CALCIUM 9.2 mg/dL 8.5-10.1 BLOOD UREA NITROGEN 20 mg/dL 7-20 CREATININE 0.8 mg/dL 0.6-1.0 SODIUM 142 mmol/L 135-148 CHLORIDE 106 mmol/L 98-110 CARBON DIOXIDE 30 mmol/L MAGNESIUM - 03/07/16 06:05 MAGNESIUM 2.0 mg/dL 1.8-2.4 ACT PLUS (POC) - 03/07/16 08:39 ACT PLUS (POC) 213 sec [place] <160 ACT PLUS (POC) - 03/07/16 08:57 ACT PLUS (POC) 257 sec [place] <160 ACT PLUS (POC) - 03/07/16 09:11 ACT PLUS (POC) 386 sec [place] <160 ACT PLUS (POC) - 03/07/16 09:30 ACT PLUS (POC) 302 sec [place] <160 ACT PLUS (POC) - 03/07/16 09:50 ACT PLUS (POC) 419 sec [place] <160 ACT PLUS (POC) - 03/07/16 10:13 ACT PLUS (POC) 441 sec [place] <160 ACT PLUS (POC) - 03/07/16 11:41 ACT PLUS (POC) 424 sec [place] <160 ACT PLUS (POC) - 03/07/16 11:56 ACT PLUS (POC) 153 sec [place] <160 METABOLIC PANEL, BASIC - 03/08/16 05:27 POTASSIUM 2.7 mmol/L 3.5-5.3 EST GFR (MDRD) > 60 mL/min > 59 ANION GAP 8 mmol/L 5-15 EST CrCl (CG) > 60 mL/min > 59 GLUCOSE 99 mg/dL 70-99 CALCIUM 8.4 mg/dL 8.5-10.1 BLOOD UREA NITROGEN 9 mg/dL 7-20 CREATININE 0.6 mg/dL 0.6-1.0 SODIUM 137 mmol/L 135-148 CHLORIDE 102 mmol/L 98-110 CARBON DIOXIDE 27 mmol/L MAGNESIUM - 03/08/16 05:27 MAGNESIUM 1.6 mg/dL 1.8-2.4 METABOLIC PANEL, BASIC - 04/22/16 09:33 POTASSIUM 2.8 mmol/L 3.5-5.3 EST GFR (MDRD) > 60 mL/min > 59 ANION GAP 9 mmol/L 5-15 EST CrCl (CG) > 60 mL/min > 59 GLUCOSE 100 mg/dL 70-99 CALCIUM 8.4 mg/dL 8.5-10.1 BLOOD UREA NITROGEN 9 mg/dL 7-20 CREATININE 0.7 mg/dL 0.6-1.0 SODIUM 136 mmol/L 135-148 CHLORIDE 99 mmol/L 98-110 CARBON DIOXIDE 28 mmol/L 21-32 Encounters ACCT No. Visit Date/Time Discharge Status Pt. Type Provider Facility Loc./Unit Complaint [id number] 01/27/2012 16:07:00 01/27/2012 23: 59:59 [facility] Outpatient HUMAIRA ENCISO APRN
[2017-09-22] MEDS ORDERED: OMG1KC PO (18:19)
[2017-09-22] MEDS ORDERED: AMLO5TAB2 PO (18:20)
[2017-09-23] MEDS ORDERED: OMEP40CA36 PO (09:09)
[2017-09-23] MEDS ORDERED: FENO200C PO (09:16)
[2017-09-23] MEDS ORDERED: BUSP10TA95 PO (09:16)
[2017-09-23] MEDS ORDERED: MAGN400T29 PO (09:16)
[2017-09-23] MEDS ORDERED: RALO60TA12 PO (09:16)
[2017-09-23] MEDS ORDERED: LEVO5TAB12 PO (09:16)
[2017-09-23] MEDS ORDERED: AMLO5TAB2 PO (09:16)
[2017-09-24] MEDS ORDERED: DRON400T2 PO (09:24)
== END 2017-06-04 23:13 | disposition home or self-care (01) ==
LOC: EDUNIT# 21:36 → ER 21:38
DX: I10 Essential (primary) hypertension (principal); F41.9 Anxiety disorder, unspecified; F32.9 Major depressive disorder, single episode, unspecified; M19.90 Unspecified osteoarthritis, unspecified site; K21.9 Gastro-esophageal reflux disease without esophagitis; Z90.49 Acquired absence of other specified parts of digestive tract; Z98.890 Other specified postprocedural states; Z95.818 Presence of other cardiac implants and grafts
CPT/HCPCS: 99283

== ENCOUNTER → 2017-08-14 | Outpatient (CLI) | payer MEDICARE, OTHER ==
[~2017-08-14] MED LIST changes: +ENAL20TA; +FENO200C; +METO-272 PO; -METO-370 PO; +TRAM50TA2
--- NOTE | 2017-08-14 15:44 | Diagnostic Imaging Report ---
PROCEDURE: CT chest and abdomen without contrast. TECHNIQUE: Axial images were obtained from the thoracic inlet through the iliac crest without the administration of intravenous contrast. INDICATION: Pulmonary nodule. COMPARISON: 10/29/2015. FINDINGS: There is nodular density in the right lung apex measuring 8 mm that appears less prominent compared to the previous exam of 10/29/2015 and is likely related to a scar. No significant consolidation, mass or suspicious nodule is seen otherwise. The heart size is normal. No pericardial or pleural effusion. The thoracic aorta is normal in caliber. No mediastinal mass or significantly enlarged lymph node is seen. No axillary lymphadenopathy. The thoracic spine demonstrates prominent degenerative changes at multiple disc levels with vacuum phenomenon mostly involving the mid and lower thoracic spine. CT ABDOMEN: The previously seen lesion in the posterior aspect of the right hepatic lobe is less clearly seen on this exam and measures 2.9 x 1.3 cm with hypodense appearance. This is favored to be a hemangioma. The gallbladder, the spleen, the pancreas, and the adrenal glands appear unremarkable. There is suggestion of a tiny hiatal hernia. The abdominal aorta is normal in caliber. No para-aortic significantly enlarged lymph nodes seen. The kidneys demonstrate no stones and no hydronephrosis is noted. Tiny fat-containing umbilical hernia is seen. There is evidence of posterior fusion with transpedicular screws involving L3/4 and 5 levels and anterior fusion of L4 and 5 seen. Also laminectomy changes noted. IMPRESSION: CT CHEST: Less prominent pulmonary nodular density measuring 8 mm in the right lung apex is suggestive of a scar. No suspicious pulmonary nodule. CT ABDOMEN: 1. A 2.9 cm hypodense lesion in the posterior aspect of the right hepatic lobe is likely a hemangioma based on appearance on CTA from 2014. It appears less prominent now due to lack of intravenous contrast with no obvious change in the overall size. 2. Tiny hiatal hernia. Dictated by: Dictated on workstation # [id number]
== END ==
LOC: RAD 14:07
PROVIDERS: ATTEND Internal Medicine
DX: R91.1 Solitary pulmonary nodule (principal); N28.9 Disorder of kidney and ureter, unspecified; K44.9 Diaphragmatic hernia without obstruction or gangrene
CPT/HCPCS: 71250; 74150

== ENCOUNTER 2017-10-07 08:22 | Emergency (ER) | payer MEDICARE, OTHER ==
[~2017-10-07] VITALS: Ht 162.6 cm; Wt 72.6 kg
[~2017-10-07 08:22] MED LIST changes: -TRAM-42 PO
[2017-10-07] MEDS ORDERED: NS IV 1000 ML 1,000 ML IV ONE (08:54)
[2017-10-07] MEDS ORDERED: ONDANSETRON 4 MG/2 ML (SDV) Z0FRAN IVP ONE (09:00)
[2017-10-07 09:15] LABS: BILIRUBIN,URINE NEGATIVE (NEGATIVE); KETONES,URINE NEGATIVE (NEGATIVE); LEUKOCYTE ESTERASE ,URINE 1+ (NEGATIVE); NITRITE,URINE NEGATIVE (NEGATIVE); PH,URINE 7 (5-9); PROTEIN,URINE NEGATIVE (NEGATIVE); UROBILINOGEN,URINE NORMAL (NORMAL)
[2017-10-07 09:26] LABS: HYALINE CASTS, URINE RARE /LPF; SQUAMOUS EPITHELIAL CELL,UR 0-2 /HPF
[2017-10-07 09:38] LABS: BASOPHILS % (AUTO) 0 % (0-10); EOSINOPHILS # (AUTO) 0.1 10^3/uL (0.0-0.3); EOSINOPHILS % (AUTO) 1 % (0-10); LYMPHOCYTES # (AUTO) 1.4 X 10^3 (1.0-4.0); LYMPHOCYTES % (AUTO) 17 % (12-44); MEAN CORPUSCULAR HEMOGLOBIN 30 PG (25-34); MEAN CORPUSCULAR HGB CONC 33 G/DL (32-36); MEAN CORPUSCULAR VOLUME 90 FL (80-99); MEAN PLATELET VOLUME 9.6 FL (7.4-10.4); MONOCYTES # (AUTO) 0.8 X 10^3 (0.0-1.0); MONOCYTES % (AUTO) 9 % (0-12); NEUTROPHILS # (AUTO) 6.1 X 10^3 (1.8-7.8); NEUTROPHILS % (AUTO) 73 % (42-75); PLATELET COUNT 512 10^3/uL (130-400); RED BLOOD COUNT 3.51 10^6/uL (4.35-5.85); RED CELL DISTRIBUTION WIDTH 12.4 % (10.0-14.5); WHITE BLOOD COUNT 8.3 10^3/uL (4.3-11.0)
[2017-10-07 09:59] LABS: ALANINE AMINOTRANSFERASE 45 U/L (0-55); ALBUMIN 3.8 GM/DL (3.2-4.5); ANION GAP 14 MMOL/L (5-14); ASPARTATE AMINO TRANSFERASE 37 U/L (5-34); BILIRUBIN,TOTAL 0.4 MG/DL (0.1-1.0); BLOOD UREA NITROGEN 26 MG/DL (7-18); BUN/CREATININE RATIO 33; CALCIUM 10.3 MG/DL (8.5-10.1); CARBON DIOXIDE 20 MMOL/L (21-32); CHLORIDE 109 MMOL/L (98-107); GFR ESTIMATED > 60; GLUCOSE 90 MG/DL (70-105); POTASSIUM 3.9 MMOL/L (3.6-5.0); SODIUM 143 MMOL/L (135-145); TOTAL PROTEIN 8.2 GM/DL (6.4-8.2)
[2017-10-07] MEDS ORDERED: KETOROLAC 30 MG/ML VIAL IVP ONE (11:15)
--- NOTE | 2017-10-07 11:16 | ED General ---
General Chief Complaint: General Problems/Pain Stated Complaint: HEADACHE SORE THROAT NAUSEA NECK PAIN Nursing Triage Note: AMB TO ROOM REPORT 2 WEEKS AGO HAD HER HEART RYTHEM CONVERTED TUBE WAS PLACED IN HER THROAT HER THROAT HAS FELT IRRITATED SINCE. SHE HAS SEE DR DUNN,AND DR PRICE FOR THAT. ONSET OF HEADACHE LAST NIGHT REPORTS SLEPT WELL LAST NIGHT. ANXIOUS ON ADMIT REPORTS THAT SHE IS TO HAVE THYROID TEST DONE TODAY VERY ANXIOUS ABOUT THAT. Nursing Sepsis Screen: No Definite Risk Source of Information: Patient Exam Limitations: No Limitations History of Present Illness Time Seen by Provider: 08:55 Initial Comments This pleasant 72-year-old woman presents to the emergency room with primary complaints of headache and sore throat. She has had the sore throat ever since having a ROSIO on September 23. The headache has been present since last night. She has associated nausea. She has had abnormal thyroid studies discovered on workup for arrhythmia. She has a thyroid scan scheduled for today. Allergies and Home Medications Allergies Coded Allergies: amoxicillin (Verified Allergy, Unknown, hives, 11/09/16) clavulanic acid (Verified Allergy, Unknown, hives, 11/09/16) Home Medications Acetaminophen/Diphenhydramine 1 Each Tablet, 1 TAB PO HS, (Reported) Alprazolam 1 Mg Tablet, 1 MG PO BID, (Reported) Apixaban 5 Mg Tablet, 5 MG PO BID, (Reported) Buspirone HCl 10 Mg Tablet, 10 MG PO BID, (Reported) Dronedarone HCl 400 Mg Tablet, 400 MG PO BID, #60 Ref 3 Prescribed by: RENÉ PRICE on 09/24/17 0924 Enalapril Maleate 20 Mg Tablet, 20 MG PO DAILY, (Reported) Fenofibrate,Micronized 200 Mg Capsule, 200 MG PO DAILY, (Reported) Levocetirizine Dihydrochloride 5 Mg Tablet, 5 MG PO DAILY, (Reported) Magnesium Oxide 400 Mg Tablet, 400 MG PO DAILY, (Reported) Metoprolol Succinate 50 Mg Tab.er.24h, 50 MG PO HS, (Reported) [place] 3 Polyunsat Fatty Acids 1,000 Mg Cap, 1,000 MG PO BID, (Reported) Omeprazole 40 Mg Capsule.dr, 40 MG PO DAILY, (Reported) Raloxifene HCl 60 Mg Tablet, 60 MG PO DAILY, (Reported) Sertraline HCl 50 Mg Tablet, 50 MG PO DAILY, (Reported) Tramadol HCl 50 Mg Tablet, 50 MG PO Q6H, #10 Prescribed by: PATRIZIA FOSTER on 10/07/17 1117 Constitutional: no symptoms reported EENTM: see HPI Respiratory: no symptoms reported Cardiovascular: see HPI Gastrointestinal: see HPI Genitourinary: no symptoms reported Musculoskeletal: no symptoms reported Skin: no symptoms reported Psychiatric/Neurological: See HPI Hematologic/Lymphatic: No Symptoms Reported Past Pzvpatm-Qauifb-Nzlhsa Hx Patient Social History Alcohol Use: Denies Use Number of Drinks Today: Alcohol Beverage of Choice: Wine Recreational Drug Use: No Smoking Status: Never a Smoker Recent Foreign Travel: No Contact w/Someone Who Travel: No Recent Infectious Disease Expo: No Recent Hopitalizations: No Immunizations Up To Date Tetanus Booster (TDap): Unknown PED Vaccines UTD: No Date of Pneumonia Vaccine: Sep 22, 2015 Date of Influenza Vaccine: Oct 16, 2016 Seasonal Allergies Seasonal Allergies: No Surgeries History of Surgeries: Yes (BACK SURGERY 8 YEARS AGO, BILAT TKR) Surgeries: Appendectomy, Cardiac (ROSIO) Respiratory History of Respiratory Disorde: No Cardiovascular History of Cardiac Disorders: Yes (IMPLANTED HEART MONITOR PLACED BEGINNING OF 2015) Cardiac Disorders: Atrial Fibrillation, Hypertension Neurological History of Neurological Disord: No Reproductive System Hx Reproductive Disorders: No Sexually Transmitted Disease: No Genitourinary History of Genitourinary Disor: No Gastrointestinal History of Gastrointestinal Di: Yes Gastrointestinal Disorders: Gastroesophageal Reflux Musculoskeletal History of Musculoskeletal Dis: Yes (BACK SURGERY 9 YEARS AGO-MILD PAIN-6 SCREWS AND 2 RODS) Musculoskeletal Disorders: Arthritis, Chronic Back Pain Endocrine History of Endocrine Disorders: No HEENT History of HEENT Disorders: No Cancer History of Cancer: No Psychosocial History of Psychiatric Problem: Yes Behavioral Health Disorders: Anxiety, Depression Integumentary History of Skin or Integumenta: No Blood Transfusions History of Blood Disorders: No Adverse Reaction to a Blood Tr: No Family Medical History Significant Family History: Heart Disease Family Medial History: Cardiovascular disease 19 FATHER (mi) Dementia 19 MOTHER Physical Exam Vital Signs Vital Sign - Last 12Hours 10/07/17 10/07/17 08:26 11:25 Temp 99.0 Pulse 72 Resp 18 B/P (MAP) 119/86 Pulse Ox 96 Capillary Refill : Less Than 3 Seconds General Appearance: No Apparent Distress, WD/WN HEENT: PERRL/EOMI, Normal ENT Inspection Neck: Normal Inspection, Supple, Other (Tender bilaterally on the anterior aspect) Respiratory: Lungs Clear, Normal Breath Sounds, No Accessory Muscle Use, No Respiratory Distress Cardiovascular: Regular Rate, Rhythm, No Edema, No Murmur Gastrointestinal: Normal Bowel Sounds, Non Tender, Soft Extremity: Normal Inspection, No Pedal Edema Neurologic/Psychiatric: Alert, Oriented x3, No Motor/Sensory Deficits, Normal Mood/Affect, ticket agent II-XII Norm as Tested Skin: Normal Color, Warm/Dry Progress/Results/Core Measures Suspected Sepsis Recent Fever Within 48 Hours: No Infection Criteria Present: None New/Unexplained Altered Menta: No Sepsis Screen: No Definite Risk Sepsis Diagnosis: SIRS Temperature:99.0 Pulse: 72 Respiratory Rate: 18 Laboratory Tests 10/07/17 09:01: White Blood Count 8.3 Blood Pressure 119 /86 Mean: 97 Laboratory Tests 10/07/17 09:01: Creatinine 0.80, Platelet Count 512H, Total Bilirubin 0.4 Results/Orders Lab Results My Orders Orders - PATRIZIA TORRES MD Iv Push Project Crew Worker Ed (10/07/17 ) Medications Given in ED Vital Signs/I&O Capillary Refill : Less Than 3 Seconds Blood Pressure Mean: 97 Progress Note : Progress Note Headache and nausea felt significantly improved with IV fluids and Zofran. She requested something more for pain and was given tramadol. She reported tramadol worked well for her in the past. Workup was relatively unremarkable. She was satisfied with her improvement. She was dismissed into the care of the nuclear medicine team for thyroid testing. Departure Impression Impression: Primary Impression: Acute headache Qualified Codes: R51 - Headache Additional Impression: Sore throat Disposition: 01 HOME, SELF-CARE Condition: Improved Departure-Patient Inst. Decision time for Depature: 11:15 Referrals: VALENCIA DUNN DO (PCP/Family) Primary Care Physician Patient Instructions: Headache, Adult Add. Discharge Instructions: You may use Tylenol (acetaminophen) up to 1000 mg every 6 hours as needed for headache. Add Ultram (tramadol) for headache not controlled by Tylenol. Drink plenty of clear liquids. Follow-up with Dr. Dunn and Dr. Price regarding throat pain and thyroid studies. Return to the ER if symptoms worsen. All discharge instructions reviewed with patient and/or family. Voiced understanding. Scripts Tramadol HCl (Ultram) 50 Mg Tablet 50 MG PO Q6H, #10 TAB Prov: PATRIZIA TORRES MD 10/07/17 Copy Copies To 1: VALENCIA DUNN JOSHUA T MD Oct 07, 2017 11:16
[2017-10-07] MEDS ORDERED: TRAM-42 PO (11:17)
[2017-10-07 11:25] VITALS: BP 129/86
== END 2017-10-07 11:25 | disposition home or self-care (01) ==
LOC: EDUNIT# 08:22 → ER 08:24
DX: R51 Headache (principal); J02.9 Acute pharyngitis, unspecified; I48.91 Unspecified atrial fibrillation; I10 Essential (primary) hypertension; K21.9 Gastro-esophageal reflux disease without esophagitis; M19.90 Unspecified osteoarthritis, unspecified site; F41.9 Anxiety disorder, unspecified; F32.9 Major depressive disorder, single episode, unspecified; Z79.01 Long term (current) use of anticoagulants; Z90.49 Acquired absence of other specified parts of digestive tract; Z82.49 Family history of ischemic heart disease and other diseases of the circulatory system; Z96.653 Presence of artificial knee joint, bilateral
CPT/HCPCS: 36415; 80053; 81000; 85025; 87088; 87430; 96361; 96374

== ENCOUNTER → 2017-10-07 | Outpatient (CLI) | payer MEDICARE, OTHER ==
[~2017-10-07] MED LIST changes: +BUSP10TA95 PO; +DRON400T2 PO; -ENAL20TA; +ENAL20TA PO; +FENO200C PO; +LEVO5TAB12 PO; +MAGN400T29 PO; -METO-272 PO; +METO-370 PO; +OMEP40CA36 PO; +OMG1KC PO; +RALO60TA12 PO; +TRAM-42 PO
--- NOTE | 2017-10-08 12:29 | Diagnostic Imaging Report ---
Thyroid scan and uptake Technique: After the oral administration of 201?Ci of I-123 capsule, 4 hour and 24-hour uptake is measured and plantar images over the thyroid gland obtained. Indication: Hyperthyroidism FINDINGS: Thyroid uptake at 4 hours is 1.6 %, and the at 24 hours is 0.7 %. Planar images demonstrate no appreciable uptake in the thyroid gland. IMPRESSION: Markedly severe lack of uptake in the thyroid gland. 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 Correlate clinically. Dictated by: Dictated on workstation # [id number]
== END ==
LOC: CARD 11:38
PROVIDERS: ATTEND Internal Medicine
DX: E05.90 Thyrotoxicosis, unspecified without thyrotoxic crisis or storm (principal)
CPT/HCPCS: 78014

== ENCOUNTER → 2017-10-13 | Outpatient (CLI) | payer MEDICARE, OTHER ==
[~2017-10-13] MED LIST changes: +TRAM-42 PO
== END ==
LOC: CARD 10:33
PROVIDERS: ATTEND Internal Medicine Cardiovascular Disease
DX: I48.0 Paroxysmal atrial fibrillation (principal); I48.92 Unspecified atrial flutter
CPT/HCPCS: 93005

== ENCOUNTER → 2017-11-03 | Day surgery (SDC) | payer MEDICARE, OTHER ==
[~2017-11-03] VITALS: Ht 162.6 cm; Wt 72.6 kg
[~2017-11-03] MED LIST changes: +MIDAZOLAM 5 MG/5 ML (VERSED) VIAL ONE; +NS IV 1000 ML 1,000 ML IV SCH; +NS IV 1000 ML 1,000 ML ONE; +proPOfol 200 MG/20 ML (DIPRIVAN) VIAL IV ONE
[2017-11-03 12:25] VITALS: BP 95/75
--- OUTSIDE RECORDS SUMMARY | 2017-11-03 13:01 | XMS REPORT | Continuity of Care Document ---
Author Author [employer] Organization [facility] Address Unknown Phone Unavailable Care Team Providers Care Pickle Water Pump Operator Name Role Phone [employer] Unavailable Unavailable Problems Medications Allergies, Adverse Reactions, Alerts Immunizations Results Vital Signs Encounters Procedures Plan of Care Social History Assessment and Plan Family History Value Date Source Advance Directives Order Name Results Value Date Source
--- OUTSIDE RECORDS SUMMARY | 2017-11-03 13:02 | XMS REPORT | Clinical Summary ---
Author Author [facility] Organization [facility] Address Unknown Phone Unavailable Care Team Providers Care Automotive Tire Technician Name Role Phone PCP Unavailable Source Comments Some departments are not documenting in the electronic medical record. If you do not see the information that you expected, contact Release of Information in the Health Information Management department at [phone] for further assistance in locating additional records.[facility] Allergies Active Allergy Reactions Severity Noted Date [...] Encounters Date Type Specialty Care Team Description 10/28/2017 Telephone Otolaryngology Silverio Walker MD Appointment ( botox) 10/28/2017 Telephone Otolaryngology Silverio Walker MD Appointment ( botox) 10/27/2017 Telephone Otolaryngology Kayla Baldwin MD Appointment 10/07/2017 Telephone Otolaryngology Silverio Walker MD Appointment Request (botox) from Last 3 Months Family History Medical [...] SCREENING 2011 PREVNAR/PNEUMOVAX (#1) 2011 INFLUENZA VACCINE 06/17/2017 Results Not on filefrom Last 3 Months
--- OUTSIDE RECORDS SUMMARY | 2017-11-03 13:02 | XMS REPORT | Encounter Summary ---
Author Author [facility] Organization [facility] Address Unknown Phone Unavailable Care Team Providers Care Fabrication And Assembly Supervisor Name Role Phone PCP Unavailable Reason for Visit * Reason Comments Appointment Encounter Details Date Type Department Care Team Description 10/27/2017 Telephone [facility] Kayla Baldwin MD Appointment Physicians - ENT [address] [place] [address] OFFICE BLDG [phone] [place] [address] Social History Tobacco Use Types Packs/Day Years Used Date Never Smoker Smokeless Tobacco: Never Used Alcohol Use Drinks/Week oz/Week Comments Yes 1 Glasses of 0.6 wine Sex Assigned at Date Recorded Not on file as of this encounter Miscellaneous Notes * Telephone Encounter - Carmel Monzon LPN - 10/29/2017 8:30 AM FACILITY MANAGER HISTOLOGY Ms. Roth calling to cancel her appointment scheduled for Friday12/05/16 due to transportation issues. She cannot find a ride for any Friday appointments. Pt appears to have appt with Dr. Walker in January. Ms. Roth denies further concerns at this time. * Telephone Encounter - Carmel Monzon LPN - 10/27/2017 4:53 PM FACILITY MANAGER HISTOLOGY Ms. Roth calling to request appointment for Botox injection. First available appointment is 12/05/17 at 1430 MOB. Ms. Roth confirmed date, time and location. Confirms she is covered under Medicare Part B. Denies further concerns at this time. in this encounter Plan of Treatment Not on fileas of this encounter Visit Diagnoses Not on filein this encounter
--- OUTSIDE RECORDS SUMMARY | 2017-11-03 13:02 | XMS REPORT | Encounter Summary ---
Author Author [facility] Organization [facility] Address Unknown Phone Unavailable Care Team Providers Care Furnace Filler Name Role Phone PCP Unavailable Reason for Visit * Reason Comments Appointment botox Encounter Details Date Type Department Care Team Description 10/28/2017 Telephone [facility] Silverio Walker MD Appointment (botox) Physicians - ENT [address] FLOOR POD [address] [place] [address] [employer] [facility] [place] [address] OFFICE BLDG [phone] [place] [address] Social History Tobacco Use Types Packs/Day Years Used Date Never Smoker Smokeless Tobacco: Never Used Alcohol Use Drinks/Week oz/Week Comments Yes 1 Glasses of 0.6 wine Sex Assigned at Date Recorded Not on file as of this encounter Miscellaneous Notes * Telephone Encounter - Brielle Raya RN - 10/28/2017 9:22 AM CENTER REP Returned patient call. Patient called this morning wanting to make an appointment for a botox injection with Dr. Walker. Left message for patient that she has an appointment for botox with Dr. Baldwin on December 05 at 2:30. If she wants an appointment with Dr. Walker, his first opening is February 04 at 2 :00pm. Advised patient to please call back an confirm which physician and which date she wants for a botox injection. in this encounter Plan of Treatment Not on fileas of this encounter Visit Diagnoses Not on filein this encounter
--- OUTSIDE RECORDS SUMMARY | 2017-11-03 13:02 | XMS REPORT | Encounter Summary ---
Author Author [facility] Organization [facility] Address Unknown Phone Unavailable Care Team Providers Care Shore Working Supervisor Name Role Phone PCP Unavailable Reason for Visit * Reason Comments Appointment Request botox Encounter Details Date Type Department Care Team Description 10/07/2017 Telephone [facility] Silverio Walker MD Appointment Request Physicians - ENT [address] (botox) 3RD FLOOR POD C [place] [address] [place] [address] OFFICE BLDG [phone] [place] [address] Social History Tobacco Use Types Packs/Day Years Used Date Never Smoker Smokeless Tobacco: Never Used Alcohol Use Drinks/Week oz/Week Comments Yes 1 Glasses of 0.6 wine Sex Assigned at Date Recorded Not on file as of this encounter Miscellaneous Notes * Telephone Encounter - Brielle Raya RN - 10/07/2017 8:22 AM RECONCILING CLERK Returned patient call. She requested an appointment with Dr. Walker for botox. Next clinic with open appointments is February 04. Advised patient I could call her if we had a cancellation before January; patient stated she would try calling Dr. Baldwin since she gave her last botox injection. Told patient I was not sure if Dr. Baldwin had anything open, but please call me soon if she wanted a January appointment. Patient voiced understanding. in this encounter Plan of Treatment Not on fileas of this encounter Visit Diagnoses Not on filein this encounter
--- OUTSIDE RECORDS SUMMARY | 2017-11-03 13:02 | XMS REPORT | Encounter Summary ---
Author Author [facility] Organization [facility] Address Unknown Phone Unavailable Care Team Providers Care Sign Hanger Name Role Phone PCP Unavailable Reason for Visit * Reason Comments Appointment botox Encounter Details Date Type Department Care Team Description 10/28/2017 Telephone [facility] Silverio Walker MD Appointment (botox) Physicians - ENT [address] FLOOR POD [address] [place] [address] [place] [address] OFFICE BLDG [phone] [place] [address] Social History Tobacco Use Types Packs/Day Years Used Date Never Smoker Smokeless Tobacco: Never Used Alcohol Use Drinks/Week oz/Week Comments Yes 1 Glasses of 0.6 wine Sex Assigned at Date Recorded Not on file as of this encounter Miscellaneous Notes * Telephone Encounter - Brielel Raya RN - 10/28/2017 10:51 AM INTERNET MARKETING INTERN Returned patient call; she wants to schedule an appointment for a botox injection with Dr. Walker for February 04 at 1:00pm. She wants to keep her appointment with Dr. Baldwin at this time. Advised patient to please call Dr. Baldwin if she changes her mind and wants to cancel. Patient voiced understanding. in this encounter Plan of Treatment Not on fileas of this encounter Visit Diagnoses Not on filein this encounter
--- OUTSIDE RECORDS SUMMARY | 2017-11-03 13:04 | XMS REPORT ---
Author Author CATHLEEN DONALDSON [facility] Address Unknown Care Team Providers Care Trim Setter Name Role Phone CATHLEEN DONALDSON Unavailable PROBLEMS Type Condition ICD9-CM Code QBT50-DS Code Onset Dates Condition Status SNOMED Code Problem Pain in joint, pelvic region and thigh 719.45 Active [id number] ALLERGIES No Information SOCIAL HISTORY Never Assessed PLAN OF CARE VITAL SIGNS MEDICATIONS Unknown Medications RESULTS No Results PROCEDURES Procedure Date Ordered Result Body Site Billing Notes on claim Jan 10, 2017 IMMUNIZATIONS No Known Immunizations MEDICAL (GENERAL) HISTORY Type Description Date Medical History high blood pressure Medical History Joint replacement or implant Medical History surgery requiring rods pins or screws Medical History arthritis Medical History blood thinners Surgical History Back surgery 2006 Surgical History knee surgery 2013 Surgical History knee surgery 2014 Hospitalization History back surgery 2006 Hospitalization History knee surgery 2013 Hospitalization History knee surgery 2014
--- OUTSIDE RECORDS SUMMARY | 2017-11-03 13:04 | XMS REPORT | Continuity of Care Document ---
Author Author [facility] Address Unknown Phone Unavailable Allergies Active Description Code Type Severity Reaction Onset Reported/Identified Relationship to Patient Clinical Status Yes No Known Drug Allergies [id number] Drug Allergy Unknown N/A 08/02/2008 Yes No Known Allergies No Known Allergies Drug Allergy Unknown N/A 2015 Yes amoxicillin [id number] Drug Allergy Unknown hives 11/09/2016 Yes clavulanic acid [id number] Drug Allergy Unknown hives 11/09/2016 Medications There is no data. Problems Date Dx Coded Attending Type Code Diagnosis Diagnosed By 05/24/2010 HUMAIRA ENCISO APRN 300.00 ANXIETY UNSPEC 05/24/2010 HUMAIRA ENCISO APRN 401.1 HYPERTENSION, BENIGN ESSENTIAL 05/24/2010 HUMAIRA ENCISO APRN 733.00 OSTEOPOROSIS UNSPECIFIED 06/07/2010 HUMAIRA ENCISO APRN 300.4 DEPRESSION WITH ANXIETY 07/12/2010 HUMAIRA ENCISO APRN 716.90 ARTHRITIS/ ARTHROPATHY, UNSPECIFIED 07/30/2010 HUMAIRA ENCISO APRN 627.3 VAGINITIS POSTMENOPAUSAL ATROPHIC 07/30/2010 HUMAIRA ENCISO APRN V72.31 LEGAL BILLING SPECIALIST EXAM, ROUTINE 09/05/2010 HUMAIRA ENCISO APRN 627.1 [...] APRN 787.1 HEARTBURN 01/27/2012 HUMAIRA ENCISO APRN R 719.45 PAIN IN JOINT INVOLVING [place] AND [place]IGH 02/03/2013 Ot 038.9 SEPTICEMIA NOS 02/03/2013 Ot 272.4 HYPERLIPIDEMIA NEC/NOS 02/03/2013 Ot 276.1 HYPOSMOLALITY 02/03/2013 Ot 276.8 HYPOPOTASSEMIA 02/03/2013 Ot 276.9 ELECTROLYT/ FLUID DIS NEC 02/03/2013 Ot 285.9 ANEMIA NOS 02/03/2013 Ot 300.00 ANXIETY STATE NOS 02/03/2013 Ot 311 DEPRESSIVE DISORDER NEC 02/03/2013 Ot 401.9 HYPERTENSION NOS 02/03/2013 Ot 530.81 ESOPHAGEAL REFLUX 02/03/2013 Ot 540.1 ABSCESS OF APPENDIX 02/03/2013 Ot 577.0 ACUTE PANCREATITIS 02/03/2013 Ot 584.9 ACUTE RENAL FAILURE, UNSPECIFIED 02/03/2013 Ot 722.52 LUMB/ LUMBOSAC DISC DEGEN 02/03/2013 Ot 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 [...] 458.9 HYPOTENSION NOS 02/19/2013 Ot V58.69 OTH MED,LT, CURRENT USE 09/20/2015 Ot 275.41 10/18/2015 HANNAH PRADHAN MD Ot M54.10 10/25/2015 HANNAH PRADHAN MD Ot M54.10 10/30/2015 RENÉ GR MD Ot E78.5 HYPERLIPIDEMIA, UNSPECIFIED 10/30/2015 RENÉ GR MD Ot F41.9 ANXIETY DISORDER, UNSPECIFIED 10/30/2015 RENÉ GR MD Ot I10 ESSENTIAL (PRIMARY) HYPERTENSION 10/30/2015 RENÉ GR MD Ot I25.10 ATHSCL HEART DISEASE OF [place] CORONARY 10/30/2015 RENÉ GR MD Ot K21.9 GASTRO-ESOPHAGEAL REFLUX DISEASE WITHOUT 10/30/2015 RENÉ GR MD Ot R00.2 PALPITATIONS 10/30/2015 RENÉ GR MD Ot R07.89 OTHER CHEST PAIN 10/30/2015 RENÉ GR MD Ot Z79.899 OTHER MAIL PROCESSOR (CURRENT) DRUG THERAPY 11/24/2015 YUVAL ERIC MD Ot M47.816 SPONDYLOSIS W/O MYELOPATHY OR RADICULOPA 11/24/2015 YUVAL ERIC MD Ot M53.3 SACROCOCCYGEAL DISORDERS, NOT ELSEWHERE 11/24/2015 YUVAL ERIC MD Ot 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 SYNDROME, NOT ELSEWHERE 11/24/2015 YUVAL ERIC MD Ot Z79.899 OTHER MAIL PROCESSOR (CURRENT) DRUG THERAPY 12/01/2015 YUVAL ERIC MD, Ot M47.816 SPONDYLOSIS W/O MYELOPATHY OR RADICULOPA 12/01/2015 YUVAL ERIC MD, Ot M53.3 SACROCOCCYGEAL DISORDERS, NOT ELSEWHERE 12/01/2015 YUVAL ERIC MD, Ot 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 SYNDROME, NOT ELSEWHERE 12/01/2015 YUVAL ERIC MD Ot Z79.899 OTHER MAIL PROCESSOR (CURRENT) DRUG THERAPY 01/03/2016 RENÉ GR MD Ot E78.5 HYPERLIPIDEMIA, UNSPECIFIED 01/03/2016 RENÉ GR MD Ot I10 ESSENTIAL (PRIMARY) HYPERTENSION 01/03/2016 RENÉ GR MD Ot R00.2 PALPITATIONS 01/03/2016 RENÉ GR MD Ot R55 SYNCOPE AND COLLAPSE 01/03/2016 RENÉ GR MD Ot Z79.899 OTHER MAIL PROCESSOR (CURRENT) DRUG THERAPY 02/21/2016 RENÉ GR MD Ot E78.5 HYPERLIPIDEMIA, UNSPECIFIED 02/21/2016 RENÉ GR MD Ot F41.9 ANXIETY DISORDER, UNSPECIFIED 02/21/2016 RENÉ GR MD Ot I10 ESSENTIAL (PRIMARY) HYPERTENSION 02/21/2016 RENÉ GR MD Ot I25.10 ATHSCL HEART DISEASE OF [place] CORONARY 02/21/2016 RENÉ GR MD Ot I42.9 CARDIOMYOPATHY, UNSPECIFIED 02/21/2016 MAILE HONG, ERNÉ Selby Ot I47.2 VENTRICULAR TACHYCARDIA 02/21/2016 RENÉ GR MD Ot I48.0 PAROXYSMAL ATRIAL FIBRILLATION 02/21/2016 RENÉ GR MD Ot I48.92 UNSPECIFIED ATRIAL FLUTTER 02/21/2016 RENÉ GR MD Ot I50.22 CHRONIC SYSTOLIC (CONGESTIVE) HEART FAIL 02/21/2016 RENÉ GR MD Ot I65.23 OCCLUSION AND STENOSIS OF BILATERAL [place] 02/21/2016 MAILE HONG, RENÉ Selby Ot K21.9 GASTRO-ESOPHAGEAL REFLUX DISEASE WITHOUT 02/23/2016 RENÉ GR MD Ot E78.5 02/23/2016 RENÉ GR MD Ot F41.9 02/23/2016 RENÉ GR MD Ot I10 02/23/2016 RENÉ GR MD Ot I25.10 02/23/2016 RENÉ GR MD Ot I42.9 02/23/2016 RENÉ GR MD Ot I47.2 02/23/2016 RENÉ GR MD Ot I48.0 02/23/2016 RENÉ GR MD Ot I48.92 02/23/2016 RENÉ RG MD Ot I50.22 02/23/2016 RENÉ GR MD [...] GR MD Ot K21.9 04/12/2016 YUVAL ERIC MD, Ot M47.816 SPONDYLOSIS W/O MYELOPATHY OR RADICULOPA 04/12/2016 YUVAL ERIC MD, Ot M51.16 INTERVERTEBRAL DISC DISORDERS W RADICULO 04/12/2016 YUVAL ERIC MD, Ot M53.3 SACROCOCCYGEAL DISORDERS, NOT ELSEWHERE 04/12/2016 YUVAL ERIC MD, Ot M70.62 TROCHANTERIC BURSITIS, LEFT HIP 04/12/2016 YUVAL ERIC MD, Ot 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 SYNDROME, NOT ELSEWHERE 04/12/2016 YUVAL ERIC MD, Ot Z79.899 OTHER MAIL PROCESSOR (CURRENT) DRUG THERAPY 04/24/2016 YUVAL ERIC MD, Ot M47.816 SPONDYLOSIS W/O MYELOPATHY OR RADICULOPA 04/24/2016 YUVAL ERIC MD, Ot M51.16 INTERVERTEBRAL DISC DISORDERS W [place]UL[place] 04/24/2016 YUVAL ERIC MD, Ot M53.3 SACROCOCCYGEAL DISORDERS, NOT ELSEWHERE 04/24/2016 YUVAL ERIC MD, Ot M70.62 TROCHANTERIC BURSITIS, LEFT HIP 04/24/2016 YUVAL ERIC MD, Ot 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 SYNDROME, NOT ELSEWHERE 04/24/2016 YUVAL ERIC MD, Ot Z79.899 OTHER MAIL PROCESSOR (CURRENT) DRUG THERAPY 11/09/2016 SHANNON FOSTER Ot [...] PAT 03/28/2017 VALENCIA WILSON DO Ot M85.89 OT DISRD OF BONE DENSITY AND STRUCTURE, 04/17/2017 VALENCIA WILSON DO Ot M85.89 OT DISRD OF BONE DENSITY AND STRUCTURE, 06/04/2017 ALTON RICHARDS MD, Ot F32.9 MAJOR DEPRESSIVE DISORDER, SINGLE EPISOD 06/04/2017 ALTON RICHARDS MD, Ot F41.9 ANXIETY DISORDER, UNSPECIFIED 06/04/2017 ALTON RICHARDS MD, Ot I10 ESSENTIAL (PRIMARY) HYPERTENSION 06/04/2017 ALTON RICHARDS MD, Ot K21.9 GASTRO-ESOPHAGEAL REFLUX DISEASE WITHOUT 06/04/2017 ALTON RICHARDS MD Ot M19.90 UNSPECIFIED OSTEOARTHRITIS, UNSPECIFIED 06/04/2017 ALTON RICHARDS MD Ot R03.0 ELEVATED BLOOD-PRESSURE READING, W/O LAVELL 06/04/2017 ALTON RICHARDS MD Ot Z90.49 ACQUIRED ABSENCE OF OTHER SPECIFIED PART 06/04/2017 ALTON RICHARDS MD Ot Z95.818 PRESENCE OF OTHER CARDIAC IMPLANTS AND G 06/04/2017 ALTON RICHARDS MD Ot Z98.890 OTHER SPECIFIED POSTPROCEDURAL STATES 06/06/2017 ALTON RICHARDS MD, Ot F32.9 MAJOR DEPRESSIVE DISORDER, SINGLE EPISOD 06/06/2017 ALTON RICHARDS MD, Ot F41.9 ANXIETY DISORDER, UNSPECIFIED 06/06/2017 ALTON RICHARDS MD Ot I10 ESSENTIAL (PRIMARY) HYPERTENSION 06/06/2017 ALTON RICHARDS MD, Ot K21.9 GASTRO-ESOPHAGEAL REFLUX DISEASE WITHOUT 06/06/2017 ALTON RICHARDS MD Ot M19.90 UNSPECIFIED OSTEOARTHRITIS, UNSPECIFIED 06/06/2017 ALTON RICHARDS MD Ot R03.0 ELEVATED BLOOD-PRESSURE READING, W/O [place] 06/06/2017 ALTON RICHARDS MD Ot Z90.49 ACQUIRED ABSENCE OF OTHER SPECIFIED PART 06/06/2017 ALTON RICHARDS MD Ot Z95.818 PRESENCE OF OTHER CARDIAC IMPLANTS AND G 06/06/2017 ALTON RICHARDS MD Ot Z98.890 OTHER SPECIFIED POSTPROCEDURAL STATES 09/03/2017 VALENCIA WILSON DO Ot K44.9 DIAPHRAGMATIC HERNIA WITHOUT OBSTRUCTION 09/03/2017 VALENCIA WILSON DO Ot N28.9 DISORDER OF KIDNEY AND URETER, UNSPECIFI 09/03/2017 VALENCIA WILSON DO Ot R91.1 SOLITARY PULMONARY NODULE 09/09/2017 VALENCIA WILSON DO Ot K44.9 DIAPHRAGMATIC HERNIA WITHOUT OBSTRUCTION 09/09/2017 VALENCIA WILSON DO Ot N28.9 DISORDER OF KIDNEY AND URETER, UNSPECIFI 09/09/2017 VALENCIA WILSON DO Ot R91.1 SOLITARY PULMONARY NODULE 09/24/2017 RENÉ GR MD Ot E05.90 THYROTOXICOSIS, UNSP WITHOUT THYROTOXIC 09/24/2017 RENÉ GR MD Ot E78.5 HYPERLIPIDEMIA, UNSPECIFIED 09/24/2017 RENÉ GR MD Ot F32.9 MAJOR DEPRESSIVE DISORDER, SINGLE EPISOD 09/24/2017 RENÉ GR MD Ot F41.9 ANXIETY DISORDER, UNSPECIFIED 09/24/2017 RENÉ GR MD Ot I10 ESSENTIAL (PRIMARY) HYPERTENSION 09/24/2017 RENÉ GR MD Ot I25.10 ATHSCL HEART DISEASE OF [place] CORONARY 09/24/2017 RENÉ GR MD Ot I48.0 PAROXYSMAL ATRIAL FIBRILLATION 09/24/2017 RENÉ GR MD Ot I48.92 UNSPECIFIED ATRIAL FLUTTER 09/24/2017 RENÉ GR MD Ot I65.23 OCCLUSION AND STENOSIS OF [place]ILATERAL [place] 09/24/2017 RENÉ GR MD Ot I95.9 HYPOTENSION, UNSPECIFIED 09/24/2017 RENÉ GR MD Ot K21.9 GASTRO-ESOPHAGEAL REFLUX DISEASE WITHOUT 09/24/2017 RENÉ GR MD Ot M19.91 PRIMARY OSTEOARTHRITIS, UNSPECIFIED SITE 09/24/2017 RENÉ GR MD Ot M54.9 DORSALGIA, UNSPECIFIED 09/24/2017 RENÉ GR MD Ot R00.1 BRADYCARDIA, UNSPECIFIED 09/24/2017 RENÉ GR MD Ot R07.9 CHEST PAIN, UNSPECIFIED 09/24/2017 RENÉ GR MD Ot Z23 ENCOUNTER FOR IMMUNIZATION 09/24/2017 RENÉ GR MD Ot Z79.01 MAIL PROCESSOR (CURRENT) USE OF ANTICOAGULANT 09/24/2017 RENÉ GR MD, Ot Z96.653 PRESENCE OF ARTIFICIAL KNEE JOINT, BILAT 09/24/2017 RENÉ GR MD, Ot Z97.8 PRESENCE OF OTHER SPECIFIED DEVICES 09/24/2017 RENÉ GR MD, Ot Z98.890 OTHER SPECIFIED POSTPROCEDURAL STATES 10/03/2017 Ot 275.41 HYPOCALCEMIA 10/03/2017 HANNAH PRADHAN MD, Ot M54.10 RADICULOPATHY, SITE UNSPECIFIED 10/03/2017 VALENCIA WILSON DO, Ot M85.89 OTH DISRD OF BONE DENSITY AND STRUCTURE, 10/03/2017 VALENCIA WILSON DO, Ot K44.9 DIAPHRAGMATIC HERNIA WITHOUT OBSTRUCTION 10/03/2017 VALENCIA WILSON DO, Ot N28.9 DISORDER OF KIDNEY AND URETER, UNSPECIFI 10/03/2017 VALENCIA WILSON DO, Ot R91.1 SOLITARY PULMONARY NODULE 10/08/2017 VALENCIA WILSON DO, Ot E05.90 THYROTOXICOSIS, UNSP WITHOUT THYROTOXIC 10/14/2017 RENÉ GR MD, Ot I48.0 PAROXYSMAL ATRIAL FIBRILLATION 10/14/2017 RENÉ GR MD, Ot I48.92 UNSPECIFIED ATRIAL FLUTTER 10/30/2017 VALENCIA WILSON DO, Ot E05.90 THYROTOXICOSIS, UNSP WITHOUT THYROTOXIC Procedures Code Description Performed By Performed On 47.01 LAPAROSCOP APPENDECTOMY 01/29/2013 [id number] SABIANIST OF CARDIAC RHYTHM, SINGLE 09/23/2017 Results Test Result Range CBC - 03/07/16 06:05 MEAN CELL HGB 31.2 pg 27.0-33.0 MEAN CELL HGB CONCENTRATION 33.5 g/dL 32.0-37.0 MEAN CELL VOLUME 93.1 fl 80.0-100.0 RED BLOOD CELL 3.94 m/cumm 4.00-6.00 RED CELL DISTRIBUTION WIDTH 14.4 % 11.0-15.6 WHITE BLOOD CELL 6.1 k/cumm 5.0-10.0 HEMOGLOBIN [...] 03/07/16 08:39 ACT PLUS (POC) 213 sec [place] <160 ACT PLUS (POC) - 03/07/16 08:57 ACT PLUS (POC) 257 sec [place] <160 ACT PLUS (POC) - 03/07/16 09:11 ACT PLUS (POC) 386 sec [place] <160 ACT PLUS (POC) - 03/07/16 09:30 ACT PLUS (POC) 302 sec [place] <160 ACT PLUS (POC) - 03/07/16 09:50 ACT PLUS (POC) 419 sec [place] <160 ACT PLUS (POC) - 03/07/16 10:13 ACT PLUS (POC) 441 sec [place] <160 ACT PLUS (POC) - 03/07/16 11:41 ACT PLUS (POC) 424 sec [place] <160 ACT PLUS (POC) - 03/07/16 11:56 ACT PLUS (POC) 153 sec [place] <160 METABOLIC PANEL, BASIC - 03/08/16 05:27 POTASSIUM 2.7 mmol/L 3.5-5.3 EST GFR (MDRD) > 60 mL/min > 59 ANION GAP 8 mmol/L 5-15 EST CrCl (CG) > 60 mL/min > 59 GLUCOSE 99 mg/dL 70-99 CALCIUM 8.4 mg/dL 8.5-10.1 BLOOD UREA NITROGEN 9 mg/dL 7-20 CREATININE 0.6 mg/dL 0.6-1.0 SODIUM 137 mmol/L 135-148 CHLORIDE 102 mmol/L 98-110 CARBON DIOXIDE 27 mmol/L -32 MAGNESIUM - 03/08/16 05:27 MAGNESIUM 1.6 mg/dL 1.8-2.4 METABOLIC PANEL, BASIC - 03/08/16 09:33 POTASSIUM 2.8 mmol/L 3.5-5.3 EST GFR (MDRD) > 60 mL/min > 59 ANION GAP 9 mmol/L 5-15 EST CrCl (CG) > 60 mL/min > 59 GLUCOSE 100 mg/dL 70-99 CALCIUM 8.4 mg/dL 8.5-10.1 BLOOD UREA NITROGEN 9 mg/dL 7-20 CREATININE 0.7 mg/dL 0.6-1.0 SODIUM 136 mmol/L 135-148 CHLORIDE 99 mmol/L 98-110 CARBON DIOXIDE 28 mmol/L -32 Automated blood complete blood count (hemogram) panel - 09/22/17 16:18 Blood leukocytes automated count (number/volume) 6.4 10*3/uL 4.3-11.0 Blood erythrocytes automated count (number/volume) 3.75 10*6/uL 4.35-5.85 Venous blood hemoglobin measurement (mass/volume) 11.3 g/dL 11.5-16.0 Blood hematocrit (volume fraction) 33 % 35-52 Automated erythrocyte mean corpuscular volume 89 [foz_us] 80-99 Automated erythrocyte mean corpuscular hemoglobin (mass per erythrocyte) 30 pg 25-34 Automated erythrocyte mean corpuscular hemoglobin concentration measurement ( mass/volume) 34 g/dL 32-36 Automated erythrocyte distribution width ratio 12.9 % 10.0-14.5 Automated blood platelet count (count/volume) 362 10*3/uL 130-400 Automated blood platelet mean volume measurement 9.8 [foz_us] 7.4-10.4 Activated partial thromboplastin time (aPTT) in platelet poor plasma bycoagulation assay - 09/22/17 16:18 Activated partial thromboplastin time (aPTT) in platelet poor plasma bycoagulation assay 38 s 24-35 PT panel in platelet poor plasma by coagulation assay - 09/22/17 16:18 Prothrombin time (PT) in platelet poor plasma by coagulation assay 13.7 s 12.2-14.7 INR in platelet poor plasma or blood by coagulation assay 1.0 0.8-1.4 Comprehensive metabolic panel - 09/22/17 16:18 Serum or plasma sodium measurement (moles/volume) 140 mmol/L 135-145 Serum or plasma potassium measurement (moles/volume) 4.0 mmol/L 3.6-5.0 Serum or plasma chloride measurement (moles/volume) 104 mmol/L 98-107 Carbon dioxide 25 mmol/L 21-32 Serum or plasma anion gap determination (moles/volume) 11 mmol/L 5-14 Serum or plasma urea nitrogen measurement (mass/volume) 22 mg/dL 7-18 Serum or plasma creatinine measurement (mass/volume) 0.84 mg/dL 0.60-1.30 Serum or plasma urea nitrogen/creatinine mass ratio 26 NRG Serum or plasma creatinine measurement with calculation of estimated glomerular filtration rate > NRG Serum or plasma glucose measurement (mass/volume) 101 mg/dL 70-105 Serum or plasma calcium measurement (mass/volume) 9.7 mg/dL 8.5-10.1 Serum or plasma total bilirubin measurement (mass/volume) 0.3 mg/dL 0.1-1.0 Serum or plasma alkaline phosphatase measurement (enzymatic activity/volume) 64 U/L 40-136 Serum or plasma aspartate aminotransferase measurement (enzymatic activity/ volume) 30 U/L 5-34 Serum or plasma alanine aminotransferase measurement (enzymatic activity/volume ) 22 U/L 0-55 Serum or plasma protein measurement (mass/volume) 7.5 g/dL 6.4-8.2 Serum or plasma albumin measurement (mass/volume) 4.1 g/dL 3.2-4.5 Magnesium - 09/22/17 16:18 Magnesium 2.0 mg/dL 1.8-2.4 Serum or plasma lithium measurement (moles/volume) - 09/22/17 16:18 BNP level 390.1 pg/mL <100.0 Serum or plasma troponin i.cardiac measurement (mass/volume) - 09/22/17 16:18 Serum or plasma troponin i.cardiac measurement (mass/volume) < ng/ mL <0.30 THYROID STIMULATING HORMONE - 09/22/17 16:18 THYROID STIMULATING HORMONE 0.14 u[iU]/mL 0.35-4.94 Automated blood complete blood count (hemogram) panel - 09/23/17 04:40 Blood leukocytes automated count (number/volume) 6.4 10*3/uL 4.3-11.0 Blood erythrocytes automated count (number/volume) 3.72 10*6/uL 4.35-5.85 Venous blood hemoglobin measurement (mass/volume) 11.3 g/dL 11.5-16.0 Blood hematocrit (volume fraction) 33 % 35-52 Automated erythrocyte mean corpuscular volume 89 [foz_us] 80-99 Automated erythrocyte mean corpuscular hemoglobin (mass per erythrocyte) 30 pg 25-34 Automated erythrocyte mean corpuscular hemoglobin concentration measurement ( mass/volume) 34 g/dL 32-36 Automated erythrocyte distribution width ratio 12.9 % 10.0-14.5 Automated blood platelet count (count/volume) 390 10*3/uL 130-400 Automated blood platelet mean volume measurement 9.9 [foz_us] 7.4-10.4 Comprehensive metabolic panel - 09/23/17 04:40 Serum or plasma sodium measurement (moles/volume) 140 mmol/L 135-145 Serum or plasma potassium measurement (moles/volume) 3.8 mmol/L 3.6-5.0 Serum or plasma chloride measurement (moles/volume) 107 mmol/L 98-107 Carbon dioxide 22 mmol/L 21-32 Serum or plasma anion gap determination (moles/volume) 11 mmol/L 5-14 Serum or plasma urea nitrogen measurement (mass/volume) 19 mg/dL 7-18 Serum or plasma creatinine measurement (mass/volume) 0.77 mg/dL 0.60-1.30 Serum or plasma urea nitrogen/creatinine mass ratio 25 NRG Serum or plasma creatinine measurement with calculation of estimated glomerular filtration rate > NRG Serum or plasma glucose measurement (mass/volume) 101 mg/dL 70-105 Serum or plasma calcium measurement (mass/volume) 9.7 mg/dL 8.5-10.1 Serum or plasma total bilirubin measurement (mass/volume) 0.5 mg/dL 0.1-1.0 Serum or plasma alkaline phosphatase measurement (enzymatic activity/volume) 72 U/L 40-136 Serum or plasma aspartate aminotransferase measurement (enzymatic activity/ volume) 34 U/L 5-34 Serum or plasma alanine aminotransferase measurement (enzymatic activity/volume ) 26 U/L 0-55 Serum or plasma protein measurement (mass/volume) 7.4 g/dL 6.4-8.2 Serum or plasma albumin measurement (mass/volume) 3.9 g/dL 3.2-4.5 Serum or plasma thyroxine (T4) free measurement (mass/volume) - 09/23/17 04:40 Serum or plasma thyroxine (T4) free measurement (mass/volume) 1.94 ng/dL 0.70-1.48 TRIIODOTHRYONINE T3 FREE - 09/23/17 04:40 TRIIODOTHYRONINE T3 FREE 4.1 pg/mL 2.4-4.5 Complete blood count (CBC) with automated white blood cell (WBC) differential - 10/07/17 09:01 Blood leukocytes automated count (number/volume) 8.3 10*3/uL 4.3-11.0 Blood erythrocytes automated count (number/volume) 3.51 10*6/uL 4.35-5.85 Venous blood hemoglobin measurement (mass/volume) 10.4 g/dL 11.5-16.0 Blood hematocrit (volume fraction) 31 % 35-52 Automated erythrocyte mean corpuscular volume 90 [foz_us] 80-99 Automated erythrocyte mean corpuscular hemoglobin (mass per erythrocyte) 30 pg 25-34 Automated erythrocyte mean corpuscular hemoglobin concentration measurement ( mass/volume) 33 g/dL 32-36 Automated erythrocyte distribution width ratio 12.4 % 10.0-14.5 Automated blood platelet count (count/volume) 512 10*3/uL 130-400 Automated blood platelet mean volume measurement 9.6 [foz_us] 7.4-10.4 Automated blood neutrophils/100 leukocytes 73 % 42-75 Automated blood lymphocytes/100 leukocytes 17 % 12-44 Blood monocytes/100 leukocytes 9 % 0-12 Automated blood eosinophils/100 leukocytes 1 % 0-10 Automated blood basophils/100 leukocytes 0 % 0-10 Blood neutrophils automated count (number/volume) 6.1 10*3 1.8-7.8 Blood lymphocytes automated count (number/volume) 1.4 10*3 1.0-4.0 Blood monocytes automated count (number/volume) 0.8 10*3 0.0-1.0 Automated eosinophil count 0.1 10*3/uL 0.0-0.3 Automated blood basophil count (count/volume) 0.0 10*3/uL 0.0-0.1 Comprehensive metabolic panel - 10/07/17 09:01 Serum or plasma sodium measurement (moles/volume) 143 mmol/L 135-145 Serum or plasma potassium measurement (moles/volume) 3.9 mmol/L 3.6-5.0 Serum or plasma chloride measurement (moles/volume) 109 mmol/L 98-107 Carbon dioxide 20 mmol/L 21-32 Serum or plasma anion gap determination (moles/volume) 14 mmol/L 5-14 Serum or plasma urea nitrogen measurement (mass/volume) 26 mg/dL 7-18 Serum or plasma creatinine measurement (mass/volume) 0.80 mg/dL 0.60-1.30 Serum or plasma urea nitrogen/creatinine mass ratio 33 NRG Serum or plasma creatinine measurement with calculation of estimated glomerular filtration rate > NRG Serum or plasma glucose measurement (mass/volume) 90 mg/dL 70-105 Serum or plasma calcium measurement (mass/volume) 10.3 mg/dL 8.5-10.1 Serum or plasma total bilirubin measurement (mass/volume) 0.4 mg/dL 0.1-1.0 Serum or plasma alkaline phosphatase measurement (enzymatic activity/volume) 110 U/L 40-136 Serum or plasma aspartate aminotransferase measurement (enzymatic activity/ volume) 37 U/L 5-34 Serum or plasma alanine aminotransferase measurement (enzymatic activity/volume ) 45 U/L 0-55 Serum or plasma protein measurement (mass/volume) 8.2 g/dL 6.4-8.2 Serum or plasma albumin measurement (mass/volume) 3.8 g/dL 3.2-4.5 Complete urinalysis with reflex to culture - 10/07/17 09:07 Urine color determination YELLOW NRG Urine clarity determination CLEAR NRG Urine pH measurement by test strip 7 5-9 Specific gravity of urine by test strip 1.010 1.016- 1.022 Urine protein assay by test strip, semi-quantitative NEGATIVE NEGATIVE Urine glucose detection by automated test strip NEGATIVE NEGATIVE Erythrocytes detection in urine sediment by light microscopy 2+ NEGATIVE Urine ketones detection by automated test strip NEGATIVE NEGATIVE Urine nitrite detection by test strip NEGATIVE NEGATIVE Urine total bilirubin detection by test strip NEGATIVE NEGATIVE Urine urobilinogen measurement by automated test strip (mass/volume) NORMAL NORMAL Urine leukocyte esterase detection by dipstick 1+ NEGATIVE Automated urine sediment erythrocyte count by microscopy (number/high power field) [HPF] NRG Automated urine sediment leukocyte count by microscopy (number/high power field ) [HPF] NRG Bacteria detection in urine sediment by light microscopy TRACE NRG Squamous epithelial cells detection in urine sediment by light microscopy 0-2 NRG Crystals detection in urine sediment by light microscopy NONE NRG Casts detection in urine sediment by light microscopy PRESENT NRG Mucus detection in urine sediment by light microscopy SMALL NRG Complete urinalysis with reflex to culture YES NRG Hyaline casts detection in urine sediment by light microscopy RARE NRG Bacterial urine culture - 10/07/17 09:07 URINE CULTURE RESULTS MORE THAN 3 ISOLATES NRG Streptococcus pyogenes antigen detection - 10/07/17 11:22 Streptococcus pyogenes antigen detection NEGATIVE NEGATIVE Bacterial throat culture - 10/07/17 11:22 Bacterial throat culture NBS NRG Encounters ACCT No. Visit Date/Time Discharge Status Pt. Type Provider Facility Loc./Unit Complaint [id number] 01/27/2012 16:07:00 01/27/2012 23:59:59 CLS Outpatient HUMAIRA ENCISO APRN [id number] 06/17/2014 14:00:00 06/17/2014 23:00:00 DIS Outpatient [id number] 04/25/2014 11:17:00 04/25/2014 23:59:59 CLS Outpatient [id number] 01/20/2014 13:50:00 01/20/2014 15:00:00 DIS Outpatient [id number] 01/10/2014 15:09:00 01/10/2014 23:59:59 CLS Outpatient [id number] 12/05/2013 19:15:00 12/05/2013 23:59:59 CLS Outpatient [id number] 12/05/2013 19:30:00 12/05/2013 23:00:00 DIS Emergency [id number] 11/15/2013 15:21:00 11/15/2013 23:59:59 CLS Outpatient [id number] 03/07/2016 05:32:00 03/08/2016 11:59:00 DIS Outpatient Leticia HONG, Nader [facility] E.EPO [id number] 10/13/2017 10:33:00 10/13/2017 23:59:59 CLS Outpatient MAILE HONG, RENÉ Selby [facility] CARD I48.0 PAROXYSMAL ARTRIAL FIBRILLATION [id number] 10/07/2017 11:38:00 10/07/2017 23:59:59 CLS Outpatient VALENCIA WILSON DO [facility] CARD HYPERTHYROID [id number] 10/07/2017 08:24:00 10/07/2017 11:25:00 DIS Emergency PATRIZIA TORRES MD [facility] ER HEADACHE SORE THROAT NAUSEA NECK PAIN [id number] 09/23/2017 08:11:00 09/24/2017 12:10:00 DIS Inpatient RENÉ GR MD [facility] ICU AFIB W/ RVR [id number] 08/14/2017 14:07:00 08/14/2017 23:59:59 CLS Outpatient VALENCIA WILSON DO [facility] RAD PULMONARY NODULE [id number] 06/04/2017 21:38:00 06/04/2017 23:13:00 DIS Emergency ALTON RICHARDS MD [facility] ER HIGH BLOOD PRESSURE [id number] 03/27/2017 09:33:00 03/27/2017 23:59:59 CLS Outpatient VALENCIA WILSON DO [facility] RAD LOSS OF HEIGHT, MENOPAUSE [id number] 11/09/2016 18:28:00 11/09/2016 21:01:00 DIS Emergency SHANNON FOSTER [facility] ER HIVES [id number] 04/12/2016 08:12:00 04/12/2016 09:23:00 DIS Outpatient YUVAL ERIC MD [facility] CARD SPONDYLOSIS WO MLEOPATHY [id number] 02/21/2016 09:53:00 02/21/2016 16:55:00 DIS Inpatient RENÉ GR MD [facility] CSD AFIB [id number] 01/03/2016 07:47:00 01/03/2016 09:23:00 DIS Outpatient RENÉ GR MD [facility] CATH PALPITATIONS,DIZZINESS [id number] 12/01/2015 09:24:00 12/01/2015 10:27:00 DIS Outpatient YUVAL ERIC MD [facility] CARD 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 [id number] 11/24/2015 10:43:00 11/24/2015 12:07:00 DIS Outpatient YUVAL ERIC MD [facility] CARD 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 [id number] 10/29/2015 20:46:00 10/30/2015 17:15:00 DIS Outpatient RENÉ GR MD [facility] CATH CHEST PAIN [id number] 09/20/2015 12:16:00 09/20/2015 23:59:59 CLS Outpatient HANNAH PRADHAN MD [facility] RAD RADICULOPATHY [id number] 11/03/2017 13:00:00 PEN Heron Manriquez MD [facility] CATH ATRIAL TACHYCARDIA [id number] 02/16/2013 09:54:00 Document Registration [id number] 02/11/2013 15:47:00 Document Registration [id number] 01/29/2013 17:51:00 Document Registration [id number] 11/27/2010 09:48:00 Document Registration
[2017-11-03 13:40] VITALS: BP 89/60
--- NOTE | 2017-11-03 13:51 | Progress Note-Standard ---
Standard Progress Note Progress Notes/Assess & Plan Date Seen by Provider: Nov 03, 2017 Time Seen by Provider: 13:20 Progress/Assessment & Plan Anesthesia Note ([id number]) Called to chemistry laboratory technician for MAC (sedation) for Cardioversion. Pt S/E and given versed 2 mg IV and propofol 70 mg IV for sedation by me. Pt tolerated the procedure well, returned to sinus rhythm, and had stable VS throughout, including + EtCO2. Will be available if needed. JEFERSON MIRANDA DO Nov 03, 2017 13:51
[2017-11-03 13:59] VITALS: BP 105/90
[2017-11-03 14:58] VITALS: BP 103/77
--- NOTE | 2017-11-03 15:15 | Cardiology Post Procedure Note ---
Post-Procedure Note Physician (s)/Distillery Miller (s) Physician Heron SINGH MD Pre-Procedure Diagnosis Pre-Procedure Diagnosis: Atrial Tachycardia with 2:1 AV block Post-Procedure Note Procedure Start Date: Nov 03, 2017 Procedure Start Time: 13:30 Name of Procedure: Direct External Cardioversion Findings/Procedure Note Successful external cardioversion with synchronized 120J shock to sinus rhythm with PVCs. Anesthesia help appreciated. No neuro complications Estimated blood loss (mL): 0 Contrast Amount: 0 Post-Procedure Diagnosis Post-operative diagnosis: Successful cardioversion continue eliquis follow up in one month Heron SINGH MD Nov 03, 2017 3:15 pm
--- NOTE | 2017-11-04 00:33 | OPERATIVE REPORT ---
DATE OF SERVICE: DIRECT ELECTRICAL CARDIOVERSION REFERRING PHYSICIAN: Sung Dunn DO PERFORMING PHYSICIAN: Dr. Alyce Harris INDICATION: Atrial tachycardia with rapid ventricular rate with 2:1 AV block. PREOPERATIVE DIAGNOSIS: Atrial tachycardia with rapid ventricular rate with 2:1 AV block. POSTOPERATIVE DIAGNOSIS: Successful cardioversion to sinus rhythm with PVCs. PROCEDURE DETAILS: The patient has a history of atrial tachycardia with rapid ventricular rate with 2:1 AV block; however, ventricular rate was still 130 BPM. The patient was symptomatic. She has been on uninterrupted Eliquis for at least the last 1 month. Cardioversion was performed via a single synchronized 120 joules shock to external patches, which converted her promptly to a sinus rhythm with PVCs. This was performed with anesthesia support. The patient did not have any new neurological complication. CONCLUSION: 1. Successful cardioversion to sinus rhythm with PVCs. 2. Continue Eliquis therapy. Job ID: [id number] DocumentID: [id number] Dictated Date: 11/03/2017 17:26:35 Psychology Physician Date: 11/04/2017 00:32:20 Dictated By: RAZA HRARIS MD
== END | disposition home or self-care (01) ==
LOC: CATH 11:23
PROVIDERS: ATTEND Internal Medicine Interventional Cardiology
DX: I47.1 Supraventricular tachycardia (principal); I10 Essential (primary) hypertension; Z88.1 Allergy status to other antibiotic agents; Z88.0 Allergy status to penicillin; Z88.2 Allergy status to sulfonamides; I48.0 Paroxysmal atrial fibrillation; Z79.899 Other long term (current) drug therapy; Z96.651 Presence of right artificial knee joint; Z96.652 Presence of left artificial knee joint
CPT/HCPCS: 92960; 93005

== ENCOUNTER 2017-11-14 11:16 | Emergency (ER) | payer MEDICARE, OTHER ==
[~2017-11-14] VITALS: Ht 160 cm; Wt 68.0 kg
[~2017-11-14 11:16] MED LIST changes: -MIDAZOLAM 5 MG/5 ML (VERSED) VIAL ONE; -NS IV 1000 ML 1,000 ML IV SCH; -NS IV 1000 ML 1,000 ML ONE; -proPOfol 200 MG/20 ML (DIPRIVAN) VIAL IV ONE
--- OUTSIDE RECORDS SUMMARY | 2017-11-14 11:23 | XMS REPORT | Continuity of Care Document ---
Author Author [employer] Organization [facility] Address Unknown Phone Unavailable Care Team Providers Care Pensions Retirement Plan Specialist Name Role Phone [employer] Unavailable Unavailable Problems Medications Allergies, Adverse Reactions, Alerts Immunizations Results Vital Signs Encounters Procedures Plan of Care Social History Assessment and Plan Family History Value Date Source Advance Directives Order Name Results Value Date Source
--- OUTSIDE RECORDS SUMMARY | 2017-11-14 11:24 | XMS REPORT | Encounter Summary ---
Author Author [facility] Organization [facility] Address Unknown Phone Unavailable Care Team Providers Care Care Asst Name Role Phone PCP Unavailable Reason for Visit * Reason Comments Appointment botox Encounter Details Date Type Department Care Team Description 10/28/2017 Telephone [facility] Silverio Walker MD Appointment (botox) Physicians - ENT [address] FLOOR [address] [facility] [place] [address] OFFICE BLDG [phone] [place] [address] Social History Tobacco Use Types Packs/Day Years Used Date Never Smoker Smokeless Tobacco: Never Used Alcohol Use Drinks/Week oz/Week Comments Yes 1 Glasses of 0.6 wine Sex Assigned at Date Recorded Not on file as of this encounter Miscellaneous Notes * Telephone Encounter - Brielle Raya RN - 10/28/2017 9:22 AM AGENT BROKER Returned patient call. Patient called this morning [...]
--- OUTSIDE RECORDS SUMMARY | 2017-11-14 11:24 | XMS REPORT | Clinical Summary ---
Author Author [facility] Organization [facility] Address Unknown Phone Unavailable Care Team Providers Care Wind Tunnel Technician Name Role Phone PCP Unavailable Source Comments Some departments are not documenting in the electronic medical record. If you do not see the information that you expected, contact Release of Information in the Health Information Management department at [phone] for further assistance in locating additional records.[facility] Allergies Active Allergy Reactions Severity Noted [...]
--- OUTSIDE RECORDS SUMMARY | 2017-11-14 11:24 | XMS REPORT | Encounter Summary ---
Author Author [facility] Organization [facility] Address Unknown Phone Unavailable Care Team Providers Care Coutierier Name Role Phone PCP Unavailable Reason for Visit * Reason Comments Appointment Request botox Encounter Details Date Type Department Care Team Description 10/07/2017 Telephone [facility] Silverio Walker MD Appointment Request Physicians - ENT [address] (botox) 3RD FLOOR POD [address] [place] [address] OFFICE BLDG [phone] [place] [address] Social History Tobacco Use Types Packs/Day Years Used Date Never Smoker Smokeless Tobacco: Never Used Alcohol Use Drinks/Week oz/Week Comments Yes 1 Glasses of 0.6 wine Sex Assigned at Date Recorded Not on file as of this encounter Miscellaneous Notes * Telephone Encounter - Brielle Raya RN - 10/07/2017 8:22 AM CARDIAC TECH Returned patient call. She requested an appointment [...]
--- OUTSIDE RECORDS SUMMARY | 2017-11-14 11:24 | XMS REPORT | Encounter Summary ---
Author Author [facility] Organization [facility] Address Unknown Phone Unavailable Care Team Providers Care Aircraft Pneudraulics Repairer Name Role Phone PCP Unavailable Reason for Visit * Reason Comments Appointment Encounter Details Date Type Department Care Team Description 10/27/2017 Telephone [facility] Kayla Baldwin MD Appointment Physicians - ENT [address] 3RD FLOOR POD [address] [place] [address] OFFICE BLDG [phone] [place] [address] Social History Tobacco Use Types Packs/Day Years Used Date Never Smoker Smokeless Tobacco: Never Used Alcohol Use Drinks/Week oz/Week Comments Yes 1 Glasses of 0.6 wine Sex Assigned at Date Recorded Not on file as of this encounter Miscellaneous Notes * Telephone Encounter - Carmel Monzon LPN - 10/29/2017 8:30 AM TROLLEY COLLECTOR Ms. Roth calling to cancel her appointment scheduled for Friday12/05/16 due to transportation issues. She cannot find a ride for any Friday appointments. Pt appears to have appt with Dr. Walker in January. Ms. Roth denies further concerns at this time. * Telephone Encounter - Carmel Monzon LPN - 10/27/2017 4:53 PM TROLLEY COLLECTOR Ms. Roth calling to request appointment for [...]
--- OUTSIDE RECORDS SUMMARY | 2017-11-14 11:24 | XMS REPORT | Encounter Summary ---
Author Author [facility] Organization [facility] Address Unknown Phone Unavailable Care Team Providers Care Hosiery Knitter Name Role Phone PCP Unavailable Reason for Visit * Reason Comments Appointment botox Encounter Details Date Type Department Care Team Description 10/28/2017 Telephone [facility] Silverio Walker MD Appointment (botox) Physicians - ENT [address] 3RD FLOOR POD [address] [place] [address] OFFICE BLDG [phone] [place] [address] Social History Tobacco Use Types Packs/Day Years Used Date Never Smoker Smokeless Tobacco: Never Used Alcohol Use Drinks/Week oz/Week Comments Yes 1 Glasses of 0.6 wine Sex Assigned at Date Recorded Not on file as of this encounter Miscellaneous Notes * Telephone Encounter - Brielle Raya RN - 10/28/2017 10:51 AM ACTIVATED SLUDGE OPERATOR Returned patient call; she wants to schedule [...]
--- OUTSIDE RECORDS SUMMARY | 2017-11-14 11:27 | XMS REPORT | Continuity of Care Document ---
Author Author [facility] Address Unknown Phone Unavailable Allergies Active Description Code Type Severity Reaction Onset Reported/Identified Relationship to Patient Clinical Status Yes No Known Drug Allergies [id number] Drug Allergy Unknown N/A 08/02/2008 Yes No Known Allergies No Known Allergies Drug Allergy Unknown N/A 2015 Yes amoxicillin [id number] Drug Allergy Unknown hives 11/09/2016 Yes clavulanic acid [id number] Drug Allergy Unknown hives 11/09/2016 Medications There [...] POSTMENOPAUSAL ATROPHIC 07/30/2010 HUMAIRA ENCISO APRN V72.31 PERSONAL INJURY LAW SPECIALIST EXAM, ROUTINE 09/05/2010 HUMAIRA ENCISO APRN [...] MD Ot I25.10 ATHSCL HEART DISEASE OF [place] CORONARY 10/30/2015 RENÉ GR MD Ot K21.9 GASTRO-ESOPHAGEAL REFLUX DISEASE WITHOUT 10/30/2015 RENÉ GR MD Ot R00.2 PALPITATIONS 10/30/2015 RENÉ GR MD Ot R07.89 OTHER CHEST PAIN 10/30/2015 RENÉ GR MD Ot Z79.899 OTHER CASE LOADER OPERATOR (CURRENT) DRUG THERAPY 11/24/2015 YUVAL ERIC MD Ot M47.816 SPONDYLOSIS W/O MYELOPATHY OR RADICULOPA 11/24/2015 YUVAL ERIC MD Ot M53.3 SACROCOCCYGEAL DISORDERS, NOT ELSEWHERE 11/24/2015 YUVAL ERCI MD Ot 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 SYNDROME, NOT ELSEWHERE 11/24/2015 YUVAL ERIC MD Ot Z79.899 OTHER HALFWAY (CURRENT) DRUG THERAPY 12/01/2015 YUVAL ERIC MD, Ot M47.816 SPONDYLOSIS W/O MYELOPATHY OR RADICULOPA 12/01/2015 YUVAL ERIC MD, Ot M53.3 SACROCOCCYGEAL DISORDERS, NOT ELSEWHERE 12/01/2015 YUVAL ERIC MD, Ot 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 SYNDROME, NOT ELSEWHERE 12/01/2015 YUVAL ERIC MD Ot Z79.899 OTHER CASE LOADER OPERATOR (CURRENT) DRUG THERAPY 01/03/2016 RENÉ GR MD Ot E78.5 HYPERLIPIDEMIA, UNSPECIFIED 01/03/2016 RENÉ GR MD Ot I10 ESSENTIAL (PRIMARY) HYPERTENSION 01/03/2016 RENÉ GR MD Ot R00.2 PALPITATIONS 01/03/2016 RENÉ GR MD Ot R55 SYNCOPE AND COLLAPSE 01/03/2016 RENÉ GR MD Ot Z79.899 OTHER HALFWAY (CURRENT) DRUG THERAPY 02/21/2016 RENÉ GR MD Ot E78.5 HYPERLIPIDEMIA, UNSPECIFIED 02/21/2016 RENÉ GR MD Ot F41.9 ANXIETY DISORDER, UNSPECIFIED 02/21/2016 RENÉ GR MD Ot I10 ESSENTIAL (PRIMARY) HYPERTENSION 02/21/2016 RENÉ GR MD Ot I25.10 ATHSCL HEART DISEASE OF [place] CORONARY 02/21/2016 RENÉ GR MD Ot I42.9 CARDIOMYOPATHY, UNSPECIFIED 02/21/2016 MAILE HONG, RENÉ Selby Ot I47.2 VENTRICULAR TACHYCARDIA 02/21/2016 RENÉ [...] 02/23/2016 RENÉ GR MD Ot I25.10 02/23/2016 RNEÉ GR MD Ot I42.9 02/23/2016 RENÉ GR [...] 04/12/2016 YUVAL ERIC MD, Ot Z79.899 OTHER HALFWAY (CURRENT) DRUG THERAPY 04/24/2016 YUVAL ERIC MD, Ot M47.816 SPONDYLOSIS W/O MYELOPATHY OR RADICULOPA 04/24/2016 YUVAL ERIC MD, Ot M51.16 INTERVERTEBRAL DISC DISORDERS W RADICULO 04/24/2016 YUVAL ERIC MD, Ot M53.3 SACROCOCCYGEAL DISORDERS, NOT ELSEWHERE 04/24/2016 YUVAL ERIC MD, Ot M70.62 TROCHANTERIC BURSITIS, LEFT HIP 04/24/2016 YUVAL ERIC MD, Ot 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 SYNDROME, NOT ELSEWHERE 04/24/2016 YUVAL ERIC MD, Ot Z79.899 OTHER CASE LOADER OPERATOR (CURRENT) DRUG THERAPY 11/09/2016 SHANNON FOSTER Ot [...] MD Ot I25.10 ATHSCL HEART DISEASE OF [place] CORONARY 09/24/2017 RENÉ GR MD Ot I48.0 [...] IMMUNIZATION 09/24/2017 RENÉ GR MD Ot Z79.01 CASE LOADER OPERATOR (CURRENT) USE OF ANTICOAGULANT 09/24/2017 RENÉ GR [...] WILSON DO, Ot R91.1 SOLITARY PULMONARY NODULE 10/07/2017 PATRIZIA TORRES MD, Ot F32.9 MAJOR DEPRESSIVE DISORDER, SINGLE EPISOD 10/07/2017 PATRIZIA TORRES MD, Ot F41.9 ANXIETY DISORDER, UNSPECIFIED 10/07/2017 PATRIZIA TORRES MD, Ot I10 ESSENTIAL (PRIMARY) HYPERTENSION 10/07/2017 PATRIZIA TORRES MD, Ot I48.91 UNSPECIFIED ATRIAL FIBRILLATION 10/07/2017 PATRIZIA TORRES MD, Ot J02.9 ACUTE PHARYNGITIS, UNSPECIFIED 10/07/2017 PATRIZIA TORRES MD, Ot K21.9 GASTRO-ESOPHAGEAL REFLUX DISEASE WITHOUT 10/07/2017 PATRIZIA TORRES MD, Ot M19.90 UNSPECIFIED OSTEOARTHRITIS, UNSPECIFIED 10/07/2017 PATRIZIA TORRES MD, Ot R51 HEADACHE 10/07/2017 PATRIZIA TORRES MD, Ot Z79.01 CASE LOADER OPERATOR (CURRENT) USE OF ANTICOAGULANT 10/07/2017 PATRIZIA TORRES MD, Ot Z82.49 FAMILY HX OF ISCHEM HEART DIS AND OTH DI 10/07/2017 PATRIZIA TORRES MD, Ot Z90.49 ACQUIRED ABSENCE OF OTHER SPECIFIED PART 10/07/2017 PATRIZIA TORRES MD, Ot Z96.653 PRESENCE OF ARTIFICIAL KNEE JOINT, BILAT 10/08/2017 VALENCIA WILSON DO, Ot E05.90 THYROTOXICOSIS, UNSP WITHOUT THYROTOXIC 10/14/2017 RENÉ GR MD, Ot I48.0 PAROXYSMAL ATRIAL FIBRILLATION 10/14/2017 RENÉ GR MD, Ot I48.92 UNSPECIFIED ATRIAL FLUTTER 10/30/2017 VALENCIA WILSON DO, Ot E05.90 THYROTOXICOSIS, UNSP WITHOUT THYROTOXIC 11/03/2017 VALENCIA WILSON DO, Ot E05.90 THYROTOXICOSIS, UNSP WITHOUT THYROTOXIC 11/04/2017 RENÉ RG MD, Ot I48.0 PAROXYSMAL ATRIAL FIBRILLATION 11/04/2017 RENÉ GR MD, Ot I48.92 UNSPECIFIED ATRIAL FLUTTER Procedures Code Description Performed By Performed On 47.01 LAPAROSCOP APPENDECTOMY 01/29/2013 [id number] PRESYBETERIAN OF CARDIAC RHYTHM, SINGLE 09/23/2017 Results Test [...] 03/07/16 08:39 ACT PLUS (POC) 213 sec [place] <160 ACT PLUS (POC) - 03/07/16 08:57 ACT PLUS (POC) 257 sec [place] <160 ACT PLUS (POC) - 03/07/16 09:11 ACT PLUS (POC) 386 sec [place] <160 ACT PLUS (POC) - 03/07/16 09:30 ACT PLUS (POC) 302 sec [place] <160 ACT PLUS (POC) - 03/07/16 09:50 ACT PLUS (POC) 419 sec [place] <160 ACT PLUS (POC) - 03/07/16 10:13 ACT PLUS (POC) 441 sec [place] <160 ACT PLUS (POC) - 03/07/16 11:41 ACT PLUS (POC) 424 sec [place] <160 ACT PLUS (POC) - 03/07/16 11:56 ACT PLUS (POC) 153 sec [place] <160 METABOLIC PANEL, [facility] - 03/08/16 05:27 POTASSIUM 2.7 mmol/L 3.5-5.3 [...] 05:27 MAGNESIUM 1.6 mg/dL 1.8-2.4 METABOLIC PANEL, [facility] - 03/08/16 09:33 POTASSIUM 2.8 mmol/L 3.5-5.3 EST GFR (MDRD) > 60 mL/min > 59 ANION GAP 9 mmol/L 5-15 EST CrCl (CG) > 60 mL/min > 59 GLUCOSE 100 mg/dL 70-99 CALCIUM 8.4 mg/dL 8.5-10.1 BLOOD UREA NITROGEN 9 mg/dL 7-20 CREATININE 0.7 mg/dL 0.6-1.0 SODIUM 136 mmol/L 135-148 CHLORIDE 99 mmol/L 98-110 CARBON DIOXIDE 28 mmol/L 21-32 Automated blood complete blood count (hemogram) panel [...] Status Pt. Type Provider Facility Loc./Unit Complaint [id number] 01/27/2012 16:07:00 01/27/2012 23:59:59 CLS Outpatient HUMAIRA ENCISO APRN [id number] 06/17/2014 14:00:00 06/17/2014 23:00:00 DIS Outpatient [id number] 04/25/2014 11:17:00 04/25/2014 23:59:59 CLS Outpatient [id number] 01/20/2014 13:50:00 01/20/2014 15:00:00 DIS Outpatient [id number] 01/10/2014 15:09:00 01/10/2014 23:59:59 CLS Outpatient [id number] 12/05/2013 19:15:00 12/05/2013 23:59:59 CLS Outpatient [id number] 12/05/2013 19:30:00 12/05/2013 23:00:00 DIS Emergency [id number] 11/15/2013 15:21:00 11/15/2013 23:59:59 CLS Outpatient [id number] 03/07/2016 05:32:00 03/08/2016 11:59:00 DIS Outpatient Leticia HONG, [facility] E.EPO [id number] 11/03/2017 11:23:00 11/03/2017 23:59:59 CLS Outpatient Heron SINGH MD [facility] CATH ATRIAL TACHYCARDIA [id number] 10/13/2017 10:33:00 10/13/2017 23:59:59 CLS Outpatient RENÉ GR MD [facility] CARD I48.0 PAROXYSMAL ARTRIAL FIBRILLATION [id number] 10/07/2017 11:38:00 10/07/2017 23:59:59 CLS Outpatient VALENCIA WILSON DO [facility] CARD HYPERTHYROID [id number] 10/07/2017 08:24:00 10/07/2017 11:25:00 DIS Emergency MELISSA HONG, PATRIZIA Smith [facility] ER HEADACHE SORE THROAT NAUSEA NECK PAIN [id number] 09/23/2017 08:11:00 09/24/2017 12:10:00 DIS Inpatient RENÉ GR MD [facility] ICU AFIB W/ RVR [id number] 08/14/2017 14:07:00 08/14/2017 23:59:59 CLS Outpatient VALENCIA WILSON DO [facility] RAD PULMONARY NODULE [id number] 06/04/2017 21:38:00 06/04/2017 23:13:00 DIS Emergency ALTON RICHARDS MD [facility] ER HIGH BLOOD PRESSURE [id number] 03/27/2017 09:33:00 03/27/2017 23:59:59 CLS Outpatient VALENCAI WILSON DO [facility] RAD LOSS OF HEIGHT, MENOPAUSE [id number] 11/09/2016 18:28:00 11/09/2016 21:01:00 DIS Emergency SHANNON FOSTER [facility] ER HIVES [id number] 04/12/2016 08:12:00 04/12/2016 09:23:00 DIS Outpatient YUVAL ERIC MD [facility] CARD SPONDYLOSIS WO MLEOPATHY [id number] 02/21/2016 09:53:00 02/21/2016 16:55:00 DIS Inpatient RENÉ GR MD [facility] CSD AFIB [id number] 01/03/2016 07:47:00 01/03/2016 09:23:00 DIS Outpatient RENÉ GR MD [facility] CATH PALPITATIONS,DIZZINESS [id number] 12/01/2015 09:24:00 12/01/2015 10:27:00 DIS Outpatient YUVAL ERIC MD [facility] CARD 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 [id number] 11/24/2015 10:43:00 11/24/2015 12:07:00 DIS Outpatient YUVAL ERIC MD [facility] CARD 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 [id number] 10/29/2015 20:46:00 10/30/2015 17:15:00 DIS Outpatient MAILE HONG, RENÉ Selby [facility] CATH CHEST PAIN [id number] 09/20/2015 12:16:00 09/20/2015 23:59:59 CLS Outpatient HANNAH PRADHAN MD [facility] RAD RADICULOPATHY [id number] 02/16/2013 09:54:00 Document Registration [id number] 02/11/2013 15:47:00 Document Registration [id number] 01/29/2013 17:51:00 Document Registration [id number] 11/27/2010 09:48:00 Document Registration
[2017-11-14] MEDS ORDERED: KETOROLAC 30 MG/ML VIAL IM STA (11:32)
[2017-11-14] MEDS ORDERED: meTOproloL SUCCINATE 50 MG (TOPROL XL) TAB PO SCH (11:45)
--- NOTE | 2017-11-14 12:10 | ED General ---
General Chief Complaint: Head/Cervical Problems Stated Complaint: RODRIGUEZ/HEART RACING-REFERRED BY DR PRICE Nursing Triage Note: AMBULATED TO ROOM 07. WAS AT DR PRICE'S OFFICE AND WAS TOLD TO DOUBLE HER DOSE OF METOROLOL FOR HER TACHYCARDIA. PT DECIDED TO COME TO ER BECAUSE SHE WAS SCARED TO DOUBLE THE DOSE WHEN SHE LIVES ALONE ALSO HAS HAD A HEADACHE FOR X2 DAYS THAT SHE HAS NOT BEEN ABLE TO GET RID OF. Nursing Sepsis Screen: No Definite Risk Source of Information: Patient Exam Limitations: No Limitations History of Present Illness Time Seen by Provider: 11:52 Initial Comments Here with complaint of posterior headache that actually starts in her neck and radiates up over her scalp. This is been going on for a couple days. Also noted palpitations last night. Has history of atrial tachycardia and follows with Dr. Price for that. Seen at his office today by his physician assistant grocery store manager and patient found to have atrial tachycardia. There intending on increasing her dose of metoprolol to 50 mg by mouth twice a day. Patient was concerned that this drop her blood pressure too much and check concerns of headache so she came here for further evaluation. Currently in no distress. She has tried Tylenol and Advil for her headache yesterday and a dose of Tylenol was morning at 7. She also took a tramadol yesterday. This did not help. The pain. Denies fever or chills. Denies chest pain, breathing problems or vomiting. Timing/Duration: 1-2 Days Severity: Moderate Associated Systoms: No Chest Pain, No Cough, No Fever/Chills, Headaches, No Nausea/Vomiting, No Shortness of Air, No Weakness Allergies and Home Medications Allergies Coded Allergies: Sulfa (Sulfonamide Antibiotics) (Verified Allergy, Severe, HIVES, 11/14/17 ) amoxicillin (Verified Allergy, Unknown, hives, 11/09/16) clavulanic acid (Verified Allergy, Unknown, hives, 11/09/16) Home Medications Acetaminophen/Diphenhydramine 1 Each Tablet, 1 TAB PO HS, (Reported) Alprazolam 1 Mg Tablet, 1 MG PO BID, (Reported) Apixaban 5 Mg Tablet, 5 MG PO BID, (Reported) Buspirone HCl 10 Mg Tablet, 10 MG PO BID, (Reported) Dronedarone HCl 400 Mg Tablet, 400 MG PO BID, #60 Ref 3 Prescribed by: RENÉ PRICE on 09/24/17 0924 Enalapril Maleate 20 Mg Tablet, 20 MG PO DAILY, (Reported) Fenofibrate,Micronized 200 Mg Capsule, 200 MG PO DAILY, (Reported) Levocetirizine Dihydrochloride 5 Mg Tablet, 5 MG PO DAILY, (Reported) Magnesium Oxide 400 Mg Tablet, 400 MG PO DAILY, (Reported) Metoprolol Succinate 50 Mg Tab.er.24h, 50 MG PO HS, (Reported) [place] 3 Polyunsat Fatty Acids 1,000 Mg Cap, 1,000 MG PO BID, (Reported) Omeprazole 40 Mg Capsule.dr, 40 MG PO DAILY, (Reported) Raloxifene HCl 60 Mg Tablet, 60 MG PO DAILY, (Reported) Sertraline HCl 50 Mg Tablet, 50 MG PO DAILY, (Reported) Tramadol HCl 50 Mg Tablet, 50 MG PO Q6H, #10 Prescribed by: PATRIZIA FOSTER on 10/07/17 1117 Constitutional: see HPI EENTM: no symptoms reported Respiratory: no symptoms reported Cardiovascular: see HPI, palpitations Gastrointestinal: no symptoms reported Genitourinary: no symptoms reported Musculoskeletal: no symptoms reported All Other Systems Reviewed Negative Unless Noted: Yes Past Fygxuyh-Ccjtrp-Nvttsg Hx Patient Social History Alcohol Use: Occasionally Uses Alcohol Beverage of Choice: Wine Recreational Drug Use: No Smoking Status: Never a Smoker Recent Foreign Travel: No Contact w/Someone Who Travel: No Recent Infectious Disease Expo: No Recent Hopitalizations: No Immunizations Up To Date Tetanus Booster (TDap): Unknown PED Vaccines UTD: No Date of Pneumonia Vaccine: Sep 22, 2015 Date of Influenza Vaccine: Sep 03, 2017 Seasonal Allergies Seasonal Allergies: No Surgeries History of Surgeries: Yes (BACK SURGERY 8 YEARS AGO, BILAT TKR) Surgeries: Appendectomy, Cardiac Respiratory History of Respiratory Disorde: No Cardiovascular History of Cardiac Disorders: Yes (IMPLANTED HEART MONITOR PLACED BEGINNING OF 2015) Cardiac Disorders: Atrial Fibrillation, Hypertension Neurological History of Neurological Disord: No Reproductive System Hx Reproductive Disorders: No Sexually Transmitted Disease: No Genitourinary History of Genitourinary Disor: No Gastrointestinal History of Gastrointestinal Di: No Gastrointestinal Disorders: Gastroesophageal Reflux Musculoskeletal History of Musculoskeletal Dis: Yes (BACK SURGERY 9 YEARS AGO-MILD PAIN-6 SCREWS AND 2 RODS) Musculoskeletal Disorders: Arthritis, Chronic Back Pain Endocrine History of Endocrine Disorders: No HEENT History of HEENT Disorders: No Cancer History of Cancer: No Psychosocial History of Psychiatric Problem: Yes Behavioral Health Disorders: Anxiety, Depression Integumentary History of Skin or Integumenta: No Blood Transfusions History of Blood Disorders: No Adverse Reaction to a Blood Tr: No Reviewed Nursing Assessment Reviewed/Agree w Nursing PMH: Yes Family Medical History Significant Family History: Heart Disease Family Medial History: Cardiovascular disease 19 FATHER (mi) Dementia 19 MOTHER Physical Exam Vital Signs Vital Sign - Last 12Hours 11/14/17 11:20 Temp 98.0 Pulse 123 Resp 18 B/P (MAP) 131/101 (111) Pulse Ox 98 Capillary Refill : Less Than 3 Seconds General Appearance: No Apparent Distress, WD/WN HEENT: PERRL/EOMI, Pharynx Normal Neck: Non Tender, Supple Respiratory: Lungs Clear, Normal Breath Sounds Cardiovascular: No Murmur, Tachycardia Gastrointestinal: Non Tender, Soft Extremity: Normal Range of Motion, Non Tender Neurologic/Psychiatric: Alert, Oriented x3 Skin: Normal Color, Warm/Dry Progress/Results/Core Measures Suspected Sepsis Recent Fever Within 48 Hours: No Infection Criteria Present: None New/Unexplained Altered Menta: No Sepsis Screen: No Definite Risk Sepsis Diagnosis: SIRS Temperature:98.0 Pulse: 123 Respiratory Rate: 18 Blood Pressure 131 /101 Mean: 111 Results/Orders My Orders Orders - ALTON RICHARDS MD Ketorolac Injection (Toradol Injection) (11/14/17 11:32) Metoprolol Succinate (Xl) Tab (Toprol Xl (11/14/17 11:45) Vital Signs/I&O Vital Sign - Last 12Hours 11/14/17 11:20 Temp 98.0 Pulse 123 Resp 18 B/P (MAP) 131/101 (111) Pulse Ox 98 Capillary Refill : Less Than 3 Seconds Blood Pressure Mean: 111 Progress Note : Progress Note Seen and evaluated. Toradol 30 mg IM. Metoprolol XL 50 mg by mouth. Monitor patient. 1309: Headache has resolved. Heart rate still about 120 with blood pressure 122/101. Patient states she feels much better. We will continue outpatient therapy with the increased metoprolol dosing as prescribed by her cardiology clinic. Discharged home with return precautions. Patient verbalize understanding instructions and agreement with plan. Departure Impression Impression: Primary Impression: Tension type headache Qualified Codes: G44.209 - Tension-type headache, unspecified, not intractable Additional Impression: Atrial tachycardia Disposition: 01 HOME, SELF-CARE Condition: Improved Departure-Patient Inst. Decision time for Depature: 13:13 Referrals: VALENCIA WILSON DO (PCP/Family) Primary Care Physician Patient Instructions: Supraventricular Tachycardia (SVT), Tension Headache (DC) Add. Discharge Instructions: All discharge instructions reviewed with patient and/or family. Voiced understanding. Continue your medication as previously prescribed including taking your metoprolol twice daily. Follow-up as discussed with the cardiology clinic. You may take Tylenol 1000 mg every 6-8 hours as needed for headache or pain. You may take Advil 400 or 600 mg every 8 hours as needed for headache or pain. Drink plenty of fluids. Follow-up with your DrLyly in a few days for recheck. Return for worse pain, weakness, breathing problems, chest pain, vomiting or other concerns as needed. ALTON RICHARDS MD Nov 14, 2017 12:10
[2017-11-14 13:35] VITALS: BP 132/102
== END 2017-11-14 13:35 | disposition home or self-care (01) ==
LOC: EDUNIT# 11:16 → ER 11:19
DX: G44.209 Tension-type headache, unspecified, not intractable (principal); I47.1 Supraventricular tachycardia; I48.91 Unspecified atrial fibrillation; I10 Essential (primary) hypertension; K21.9 Gastro-esophageal reflux disease without esophagitis; F41.9 Anxiety disorder, unspecified; F32.9 Major depressive disorder, single episode, unspecified; Z79.01 Long term (current) use of anticoagulants; Z90.49 Acquired absence of other specified parts of digestive tract; Z82.49 Family history of ischemic heart disease and other diseases of the circulatory system; Z96.653 Presence of artificial knee joint, bilateral
CPT/HCPCS: 99284

== ENCOUNTER → 2017-11-21 | Day surgery (SDC) | payer MEDICARE, OTHER ==
[~2017-11-21] VITALS: Ht 160 cm; Wt 70.3 kg
[2017-11-21] VITALS (9 sets, daily range): BP systolic 96–132; BP diastolic 67–84
[~2017-11-21] MED LIST changes: +DILT120C53 PO; +LIDOCAINE 2% VISCOUS 15 ML UDC ONE; +MIDAZOLAM 5 MG/5 ML (VERSED) VIAL ONE; +NS IV 1000 ML 1,000 ML IV SCH; +NS IV 1000 ML 1,000 ML ONE; +proPOfol 200 MG/20 ML (DIPRIVAN) VIAL IV ONE
--- NOTE | 2017-11-21 09:49 | Diagnostic Imaging Report ---
INDICATION: Atrial flutter and hypertension. Frontal chest obtained at 9:31 a.m. and compared with 02/20/2016. FINDINGS: There is cardiomegaly with tortuous aorta. There is scoliotic change of the thoracolumbar spine. There is no focal infiltrate or pneumothorax or pleural fluid. IMPRESSION: Cardiomegaly with tortuous aorta. No acute infiltrate or edema or pleural fluid. Dictated by: Dictated on workstation # [id number]
[2017-11-21 10:11] LABS: BILIRUBIN,URINE NEGATIVE (NEGATIVE); CLARITY,URINE VERY CLOUDY; COLOR,URINE YELLOW; GLUCOSE, URINE (UA) NEGATIVE (NEGATIVE); KETONES,URINE NEGATIVE (NEGATIVE); LEUKOCYTE ESTERASE ,URINE 3+ (NEGATIVE); NITRITE,URINE NEGATIVE (NEGATIVE); PH,URINE 7 (5-9); PROTEIN,URINE 2+ (NEGATIVE); UROBILINOGEN,URINE 1 MG/DL (NORMAL)
--- NOTE | 2017-11-21 10:11 | Cardiac Procedure Note-CS/ASA ---
Pre-Procedure Note Pre-Op Procedure Note H&P Reviewed The H&P was reviewed, patient examined and no changes noted. Date H&P Reviewed: Nov 21, 2017 Time H&P Reviewed: 10:11 Conscious Sedation Pre-Proced Time Reviewed: 10:11 ASA Class: 3 Airway Mallampati Classification: (tyonek appropriate class) I. II. III, IV Lungs Heart ASA score ASA 1: a normal healthy patient ASA 2: a patient with a mild systemic disease (mid diabetes, controlled hypertension, obesity x ASA 3: a patient with a severe systemic disease that limits activity (angina , COPD, prior Myocardial infarction) ASA 4: a patient with an incapacitating disease that is a constant threat to life (CHF, renal failure) ASA 5: a moribund patient not expected to survive 24 hrs. (ruptured aneurysm) ASA 6: a declared brain patient whose organs are being harvested. For emergent operations, add the letter E after the classification Grade 3 Sedation Plan: Analgesia, Amnesia, Plan communicated to team members, Discussed options with patient/fam, Discussed risks with patient/fam Note The patient is an appropriate candidate to undergo the planned procedure, sedation, and anesthesia. The patient immediately re-assessed prior to indication. RENÉ GR MD Nov 21, 2017 10:11
--- NOTE | 2017-11-21 10:19 | Cardiac Procedure Note ---
Cardiology Procedures Date of Procedure 11/21/17 BRIEF HISTORY: The patient is a 72 female with paroxysmal atrial fibrillation, has been tachycardic, scheduled for cardioversion PROCEDURE NOTE: After explaining the procedure to the patient, all pros and cons were explained. The patient was sedated with assistance of anesthesia, DC cardioversion was delivered with 120 J, successful in terminating atrial fibrillation IN CONCLUSION: Successful electrical cardioversion terminating atrial fibrillation Final diagnosis Atrial fibrillation Tachycardia Hypertension Palpitation. RENÉ GR MD Nov 21, 2017 10:19
[2017-11-21 10:22] LABS: INR 1.2 (0.8-1.4); PROTHROMBIN TIME PATIENT 14.8 SEC (12.2-14.7)
--- NOTE | 2017-11-21 10:31 | Anesthesia-Procedure Note ---
Procedure Start/Stop Time Date of Procedure: Nov 21, 2017 Start Time: 10:13 Referring Physician: Dee Brief History Called to laboratory [facility] to provide sedation for cardioversion. Brief history obtained form nurse, sedation explained to patient. Allergies verified, assessment complete. Monitors on and functional, O2 on @4LNC. Propofol 100mg IV given in incremental doses until desired effect. Procedure completed. Pt maintains spontaneous respirations, VSS upon departing from laboratory [facility]. Nurse at bedside. Stop Time: 10:22 SURESH VERNON CRNA Nov 21, 2017 10:31
[2017-11-21 10:38] LABS: BACTERIA,URINE TRACE /HPF
[2017-11-21 10:42] LABS: ALBUMIN 4.2 GM/DL (3.2-4.5); BILIRUBIN,TOTAL 0.4 MG/DL (0.1-1.0); CALCIUM 9.3 MG/DL (8.5-10.1); CREATININE SERUM 1.03 MG/DL (0.60-1.30); POTASSIUM 3.7 MMOL/L (3.6-5.0); TOTAL PROTEIN 7.3 GM/DL (6.4-8.2)
[2017-11-21 11:31] LABS: HEMOGLOBIN 11.3 G/DL (11.5-16.0); MEAN PLATELET VOLUME 10.2 FL (7.4-10.4); RED BLOOD COUNT 3.94 10^6/uL (4.35-5.85); RED CELL DISTRIBUTION WIDTH 14.2 % (10.0-14.5); WHITE BLOOD COUNT 4.8 10^3/uL (4.3-11.0)
--- OUTSIDE RECORDS SUMMARY | 2017-11-22 00:13 | XMS REPORT | Encounter Summary ---
Author Author [facility] Organization [facility] Address Unknown Phone Unavailable Care Team Providers Care Supervisor Fur Dressing Name Role Phone PCP Unavailable Reason for Visit * Reason Comments Appointment botox Encounter Details Date Type Department Care Team Description 10/28/2017 Telephone [facility] Silverio Walker MD Appointment (botox) Physicians - ENT [address]RD FLOOR POD C [place] [address] [place] [address] OFFICE BLDG [phone] [place] [address] Social History Tobacco Use Types Packs/Day Years Used Date Never Smoker Smokeless Tobacco: Never Used Alcohol Use Drinks/Week oz/Week Comments Yes 1 Glasses of 0.6 wine Sex Assigned at Date Recorded Not on file as of this encounter Miscellaneous Notes * Telephone Encounter - Brielle Raay RN - 10/28/2017 10:51 AM APRON CLEANER Returned patient call; she wants to schedule [...]
--- OUTSIDE RECORDS SUMMARY | 2017-11-22 00:13 | XMS REPORT | Clinical Summary ---
Author Author [facility] Organization [facility] Address Unknown Phone Unavailable Care Team Providers Care Replenisher Name Role Phone PCP Unavailable Source Comments Some departments are not documenting in the electronic medical record. If you do not see the information that you expected, contact Release of Information in the Health Information Management department at [phone] for further assistance in locating additional records.[facility] Allergies Active Allergy Reactions Severity Noted Date [...] Encounters Date Type Specialty Care Team Description 11/21/2017 Telephone Cardiology Alethea Rader RN 10/28/2017 Telephone Otolaryngology Silverio Walker MD Appointment [...]
--- OUTSIDE RECORDS SUMMARY | 2017-11-22 00:13 | XMS REPORT | Continuity of Care Document ---
Author Author [facility] Address Unknown Phone Unavailable Care Team Providers Care Outside Salesperson Name Role Phone [employer] Unavailable Unavailable Problems Medications Allergies, Adverse Reactions, Alerts Immunizations Results Vital Signs Encounters Location Location Details Encounter Type Encounter Number Reason For Visit Attending Provider ADM Date DC Date Status Source O 11/24/[address] [facility] OUTPATIENT [id number] 11/24/[address] [facility] Procedures Plan of Care Social History Assessment and Plan Family History Advance Directives Functional Status
--- OUTSIDE RECORDS SUMMARY | 2017-11-22 00:13 | XMS REPORT | Encounter Summary ---
Author Author [facility] Organization [facility] Address Unknown Phone Unavailable Care Team Providers Care Customer Service Voice Name Role Phone PCP Unavailable Reason for Visit * Reason Comments Appointment Request botox Encounter Details Date Type Department Care Team Description 10/07/2017 Telephone [facility] Silverio Walker MD Appointment Request Physicians - ENT [address] (botox) 3RD FLOOR POD C [place] [address] [place] [address] OFFICE BLDG [phone] [place] [address] Social History Tobacco Use Types Packs/Day Years Used Date Never Smoker Smokeless Tobacco: Never Used Alcohol Use Drinks/Week oz/Week Comments Yes 1 Glasses of 0.6 wine Sex Assigned at Date Recorded Not on file as of this encounter Miscellaneous Notes * Telephone Encounter - Brielle Raya RN - 10/07/2017 8:22 AM COMPENSATION CONSULTANT Returned patient call. She requested an appointment [...]
--- OUTSIDE RECORDS SUMMARY | 2017-11-22 00:13 | XMS REPORT | Encounter Summary ---
Author Author [facility] Organization [facility] Address Unknown Phone Unavailable Care Team Providers Care Logging Shovel Operator Name Role Phone PCP Unavailable Reason for Visit * Reason Comments Appointment botox Encounter Details Date Type Department Care Team Description 10/28/2017 Telephone [facility] Silverio Walker MD Appointment (botox) Physicians - ENT [address]RD FLOOR POD C [place] [address] [place] [address] OFFICE BLDG [phone] [place] [address] Social History Tobacco Use Types Packs/Day Years Used Date Never Smoker Smokeless Tobacco: Never Used Alcohol Use Drinks/Week oz/Week Comments Yes 1 Glasses of 0.6 wine Sex Assigned at Date Recorded Not on file as of this encounter Miscellaneous Notes * Telephone Encounter - Brielle Raya RN - 10/28/2017 9:22 AM AGRICULTURAL EXTENSION AGENT Returned patient call. Patient called this morning [...]
--- OUTSIDE RECORDS SUMMARY | 2017-11-22 00:13 | XMS REPORT | Encounter Summary ---
Author Author [facility] Organization [facility] Address Unknown Phone Unavailable Care Team Providers Care Hunter Trapper Name Role Phone PCP Unavailable Reason for Visit * Reason Comments Appointment Encounter Details Date Type Department Care Team Description 10/27/2017 Telephone [facility] Kayla Baldwin MD Appointment Physicians - ENT [address]RD FLOOR POD C [place] [address] [place] [address] OFFICE BLDG [phone] [place] [address] Social History Tobacco Use Types Packs/Day Years Used Date Never Smoker Smokeless Tobacco: Never Used Alcohol Use Drinks/Week oz/Week Comments Yes 1 Glasses of 0.6 wine Sex Assigned at Date Recorded Not on file as of this encounter Miscellaneous Notes * Telephone Encounter - Carmel Monzon LPN - 10/29/2017 8:30 AM REAL ESTATE DEVELOPMENT MANAGER Ms. Roth calling to cancel her appointment scheduled for Friday12/05/16 due to transportation issues. She cannot find a ride for any Friday appointments. Pt appears to have appt with Dr. Walker in January. Ms. Roth denies further concerns at this time. * Telephone Encounter - Carmel Monzon LPN - 10/27/2017 4:53 PM REAL ESTATE DEVELOPMENT MANAGER Ms. Roth calling to request appointment for [...]
--- OUTSIDE RECORDS SUMMARY | 2017-11-22 00:16 | XMS REPORT | Continuity of Care Document ---
Author Author [facility] Address Unknown Phone Unavailable Allergies Active Description Code Type Severity Reaction Onset Reported/Identified Relationship to Patient Clinical Status Yes No Known Drug Allergies [id number] Drug Allergy Unknown N/A 08/02/2008 Yes No Known Allergies No Known Allergies Drug Allergy Unknown N/A 2015 Yes amoxicillin [id number] Drug Allergy Unknown hives 11/09/2016 Yes clavulanic acid [id number] Drug Allergy Unknown hives 11/09/2016 Medications There [...] POSTMENOPAUSAL ATROPHIC 07/30/2010 HUMAIRA ENCISO APRN 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, 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 09/05/2010 HUMAIRA ENCISO APRN 627.1 [...] MD Ot I25.10 ATHSCL HEART DISEASE OF [place] CORONARY 10/30/2015 RENÉ GR MD Ot K21.9 GASTRO-ESOPHAGEAL REFLUX DISEASE WITHOUT 10/30/2015 RENÉ GR MD Ot R00.2 PALPITATIONS 10/30/2015 RENÉ GR MD Ot R07.89 OTHER CHEST PAIN 10/30/2015 RENÉ GR MD Ot Z79.899 OTHER DUTY MANAGER (CURRENT) DRUG THERAPY 11/24/2015 YUVAL ERIC MD Ot M47.816 SPONDYLOSIS W/O MYELOPATHY OR RADICULOPA 11/24/2015 YUVAL ERIC MD Ot M53.3 SACROCOCCYGEAL DISORDERS, NOT ELSEWHERE 11/24/2015 YUVAL ERIC MD Ot 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 SYNDROME, NOT ELSEWHERE 11/24/2015 YUVAL ERIC MD Ot Z79.899 OTHER [facility] (CURRENT) DRUG THERAPY 12/01/2015 YUVAL ERIC MD, Ot M47.816 SPONDYLOSIS W/O MYELOPATHY OR RADICULOPA 12/01/2015 UYVAL ERIC MD, Ot M53.3 SACROCOCCYGEAL DISORDERS, NOT ELSEWHERE 12/01/2015 YUVAL ERIC MD, Ot 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 SYNDROME, NOT ELSEWHERE 12/01/2015 YUVAL ERIC MD Ot Z79.899 OTHER DUTY MANAGER (CURRENT) DRUG THERAPY 01/03/2016 RENÉ GR MD Ot E78.5 HYPERLIPIDEMIA, UNSPECIFIED 01/03/2016 RENÉ GR MD Ot I10 ESSENTIAL (PRIMARY) HYPERTENSION 01/03/2016 RENÉ GR MD Ot R00.2 PALPITATIONS 01/03/2016 RENÉ GR MD Ot R55 SYNCOPE AND COLLAPSE 01/03/2016 RENÉ GR MD Ot Z79.899 OTHER [facility] (CURRENT) DRUG THERAPY 02/21/2016 RENÉ GR MD Ot E78.5 HYPERLIPIDEMIA, UNSPECIFIED 02/21/2016 RENÉ GR MD Ot F41.9 ANXIETY DISORDER, UNSPECIFIED 02/21/2016 RENÉ GR MD Ot I10 ESSENTIAL (PRIMARY) HYPERTENSION 02/21/2016 RENÉ GR MD Ot I25.10 ATHSCL HEART DISEASE OF [place] CORONARY 02/21/2016 RENÉ GR MD Ot I42.9 [...] 02/23/2016 RENÉ GR MD Ot K21.9 04/12/2016 YVUAL ERIC MD, Ot M47.816 SPONDYLOSIS W/O MYELOPATHY OR RADICULOPA 04/12/2016 YUVAL ERIC MD, Ot M51.16 INTERVERTEBRAL DISC DISORDERS W RADICULO 04/12/2016 YUVAL ERIC MD, Ot M53.3 SACROCOCCYGEAL DISORDERS, NOT ELSEWHERE 04/12/2016 YUVAL ERIC MD, Ot M70.62 TROCHANTERIC BURSITIS, LEFT HIP 04/12/2016 YUVAL ERIC MD, Ot 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 SYNDROME, NOT ELSEWHERE 04/12/2016 YUVAL ERIC MD, Ot Z79.899 OTHER [facility] (CURRENT) DRUG THERAPY 04/24/2016 YUVAL ERIC MD, Ot M47.816 SPONDYLOSIS W/O MYELOPATHY OR RADICULOPA 04/24/2016 YUVAL ERIC MD, Ot M51.16 INTERVERTEBRAL DISC DISORDERS W RADICULO 04/24/2016 YUVAL ERIC MD, Ot M53.3 SACROCOCCYGEAL DISORDERS, NOT ELSEWHERE 04/24/2016 YUVAL ERIC MD, Ot M70.62 TROCHANTERIC BURSITIS, LEFT HIP 04/24/2016 YUVAL ERIC MD, Ot 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 SYNDROME, NOT ELSEWHERE 04/24/2016 YUVAL ERIC MD, Ot Z79.899 OTHER DUTY MANAGER (CURRENT) DRUG THERAPY 11/09/2016 SHANNON FOSTER Ot [...] MD Ot I25.10 ATHSCL HEART DISEASE OF [place] CORONARY 09/24/2017 RENÉ GR MD Ot I48.0 [...] IMMUNIZATION 09/24/2017 RENÉ GR MD Ot Z79.01 DUTY MANAGER (CURRENT) USE OF ANTICOAGULANT 09/24/2017 RENÉ GR [...] HEADACHE 10/07/2017 PATRIZIA TORRES MD, Ot Z79.01 DUTY MANAGER (CURRENT) USE OF ANTICOAGULANT 10/07/2017 PATRIZIA TORRES MD, Ot Z82.49 FAMILY HX OF ISCHEM HEART DIS AND OTH DI 10/07/2017 PATRIZIA TORRES MD, Ot Z90.49 ACQUIRED ABSENCE OF OTHER SPECIFIED PART 10/07/2017 PATRIZIA TORRES MD, Ot Z96.653 PRESENCE OF ARTIFICIAL KNEE JOINT, BILAT 10/08/2017 VALENCIA WILSON DO Ot E05.90 THYROTOXICOSIS, UNSP WITHOUT THYROTOXIC 10/14/2017 RENÉ GR MD Ot I48.0 PAROXYSMAL ATRIAL FIBRILLATION 10/14/2017 RENÉ GR MD Ot I48.92 UNSPECIFIED ATRIAL FLUTTER 10/30/2017 VALENCIA WILSON DO Ot E05.90 THYROTOXICOSIS, UNSP WITHOUT THYROTOXIC 11/03/2017 VALENCIA WILSON DO Ot E05.90 THYROTOXICOSIS, UNSP WITHOUT THYROTOXIC 11/04/2017 RENÉ GR MD Ot I48.0 PAROXYSMAL ATRIAL FIBRILLATION 11/04/2017 RENÉ GR MD, Ot I48.92 UNSPECIFIED ATRIAL FLUTTER 11/06/2017 Heron SINGH MD Ot I10 ESSENTIAL (PRIMARY) HYPERTENSION 11/06/2017 Heron SINGH MD Ot I47.1 SUPRAVENTRICULAR TACHYCARDIA 11/06/2017 Heron SINGH MD Ot I48.0 PAROXYSMAL ATRIAL FIBRILLATION 11/06/2017 Heron SINGH MD Ot Z79.899 OTHER [facility] (CURRENT) DRUG THERAPY 11/06/2017 Heron SINGH MD Ot Z88.0 ALLERGY STATUS TO PENICILLIN 11/06/2017 Heron SINGH MD Ot Z88.1 ALLERGY STATUS TO OTHER ANTIBIOTIC AGENT 11/06/2017 Heron SINGH MD Ot Z88.2 ALLERGY STATUS TO SULFONAMIDES STATUS 11/06/2017 Heron SINGH MD Ot Z96.651 PRESENCE OF RIGHT ARTIFICIAL KNEE JOINT 11/06/2017 Heron SINGH MD Ot Z96.652 PRESENCE OF LEFT ARTIFICIAL KNEE JOINT 11/09/2017 Heron SINGH MD Ot I10 ESSENTIAL (PRIMARY) HYPERTENSION 11/09/2017 Heron SINGH MD Ot I47.1 SUPRAVENTRICULAR TACHYCARDIA 11/09/2017 Heron SINGH MD Ot I48.0 PAROXYSMAL ATRIAL FIBRILLATION 11/09/2017 Heron SINGH MD Ot Z79.899 OTHER DUTY MANAGER (CURRENT) DRUG THERAPY 11/09/2017 Heron SINGH MD, Ot Z88.0 ALLERGY STATUS TO PENICILLIN 11/09/2017 Heron SINGH MD, Ot Z88.1 ALLERGY STATUS TO OTHER ANTIBIOTIC AGENT 11/09/2017 Heron SINGH MD, Ot Z88.2 ALLERGY STATUS TO SULFONAMIDES STATUS 11/09/2017 Heron SINGH MD, Ot Z96.651 PRESENCE OF RIGHT ARTIFICIAL KNEE JOINT 11/09/2017 Heron SINGH MD, Ot Z96.652 PRESENCE OF LEFT ARTIFICIAL KNEE JOINT Procedures Code Description Performed By Performed On 47.01 LAPAROSCOP APPENDECTOMY 01/29/2013 [id number] EVANGELICAL OF CARDIAC RHYTHM, SINGLE 09/23/2017 Results Test [...] 106 mmol/L 98-110 CARBON DIOXIDE 30 mmol/L 21-32 MAGNESIUM - 03/07/16 06:05 MAGNESIUM 2.0 mg/dL 1.8-2.4 ACT PLUS (POC) - 03/07/16 08:39 ACT PLUS (POC) 213 sec [place] <160 ACT PLUS (POC) - 03/07/16 08:57 ACT PLUS (POC) 257 sec [place] <160 ACT PLUS (POC) - 03/07/16 09:11 ACT PLUS (POC) 386 sec [place] <160 ACT PLUS (POC) - 03/07/16 09:30 ACT PLUS (POC) 302 sec [place] <160 ACT PLUS (POC) - 03/07/16 09:50 ACT PLUS (POC) 419 sec [place] <160 ACT PLUS (POC) - 03/07/16 10:13 ACT PLUS (POC) 441 sec [place] <160 ACT PLUS (POC) - 03/07/16 11:41 ACT PLUS (POC) 424 sec [place] <160 ACT PLUS (POC) - 03/07/16 11:56 ACT PLUS (POC) 153 sec [place] <160 METABOLIC PANEL, [facility] - 03/08/16 05:27 POTASSIUM 2.7 mmol/L 3.5-5.3 EST GFR (MDRD) > 60 mL/min > 59 ANION GAP 8 mmol/L 5-15 EST CrCl (CG) > 60 mL/min > 59 GLUCOSE 99 mg/dL 70-99 CALCIUM 8.4 mg/dL 8.5-10.1 BLOOD UREA NITROGEN 9 mg/dL 7-20 CREATININE 0.6 mg/dL 0.6-1.0 SODIUM 137 mmol/L 135-148 CHLORIDE 102 mmol/L 98-110 CARBON DIOXIDE 27 mmol/L 21-32 MAGNESIUM - 03/08/16 05:27 MAGNESIUM 1.6 mg/dL 1.8-2.4 METABOLIC PANEL, [facility] - 03/08/16 09:33 POTASSIUM 2.8 mmol/L 3.5-5.3 [...] 10/07/17 11:22 Bacterial throat culture NBS NRG Complete urinalysis with reflex to culture - 11/21/17 09:24 Urine color determination YELLOW NRG Urine clarity determination VERY CLOUDY NRG Urine pH measurement by test strip 7 5-9 Specific gravity of urine by test strip 1.010 1.016- 1.022 Urine protein assay by test strip, semi-quantitative 2+ NEGATIVE Urine glucose detection by automated test strip NEGATIVE NEGATIVE Erythrocytes detection in urine sediment by light microscopy 1+ NEGATIVE Urine ketones detection by automated test strip NEGATIVE NEGATIVE Urine nitrite detection by test strip NEGATIVE NEGATIVE Urine total bilirubin detection by test strip NEGATIVE NEGATIVE Urine urobilinogen measurement by automated test strip (mass/volume) 1 mg/dL NORMAL Urine leukocyte esterase detection by dipstick 3+ NEGATIVE Automated urine sediment erythrocyte count by microscopy (number/high power field) NONE NRG Automated urine sediment leukocyte count by microscopy (number/high power field ) [HPF] NRG Bacteria detection in urine sediment by light microscopy TRACE NRG Squamous epithelial cells detection in urine sediment by light microscopy 5-10 NRG Crystals detection in urine sediment by light microscopy NONE NRG Casts detection in urine sediment by light microscopy NONE NRG Mucus detection in urine sediment by light microscopy SMALL NRG Complete urinalysis with reflex to culture YES NRG PT panel in platelet poor plasma by coagulation assay - 11/21/17 09:44 Prothrombin time (PT) in platelet poor plasma by coagulation assay 14.8 s 12.2-14.7 INR in platelet poor plasma or blood by coagulation assay 1.2 0.8-1.4 Activated partial thromboplastin time (aPTT) in platelet poor plasma bycoagulation assay - 11/21/17 09:44 Activated partial thromboplastin time (aPTT) in platelet poor plasma bycoagulation assay 35 s 24-35 Comprehensive metabolic panel - 11/21/17 09:44 Serum or plasma sodium measurement (moles/volume) 141 mmol/L 135-145 Serum or plasma potassium measurement (moles/volume) 3.7 mmol/L 3.6-5.0 Serum or plasma chloride measurement (moles/volume) 106 mmol/L 98-107 Carbon dioxide 23 mmol/L 21-32 Serum or plasma anion gap determination (moles/volume) 12 mmol/L 5-14 Serum or plasma urea nitrogen measurement (mass/volume) 22 mg/dL 7-18 Serum or plasma creatinine measurement (mass/volume) 1.03 mg/dL 0.60-1.30 Serum or plasma urea nitrogen/creatinine mass ratio 21 NRG Serum or plasma creatinine measurement with calculation of estimated glomerular filtration rate 53 NRG Serum or plasma glucose measurement (mass/volume) 76 mg/dL 70-105 Serum or plasma calcium measurement (mass/volume) 9.3 mg/dL 8.5-10.1 Serum or plasma total bilirubin measurement (mass/volume) 0.4 mg/dL 0.1-1.0 Serum or plasma alkaline phosphatase measurement (enzymatic activity/volume) 49 U/L 40-136 Serum or plasma aspartate aminotransferase measurement (enzymatic activity/ volume) 20 U/L 5-34 Serum or plasma alanine aminotransferase measurement (enzymatic activity/volume ) 13 U/L 0-55 Serum or plasma protein measurement (mass/volume) 7.3 g/dL 6.4-8.2 Serum or plasma albumin measurement (mass/volume) 4.2 g/dL 3.2-4.5 Lipid 1996 panel - 11/21/17 09:44 Serum or plasma triglyceride measurement (mass/volume) 52 mg/dL <150 Serum or plasma cholesterol measurement (mass/volume) 208 mg/dL < 200 Serum or plasma cholesterol in HDL measurement (mass/volume) 70 mg/ dL 40-60 Cholesterol in LDL [mass/volume] in serum or plasma by direct assay 113 mg/dL 1-129 Serum or plasma cholesterol in VLDL measurement (mass/volume) 10 mg/ dL 5-40 Automated blood complete blood count (hemogram) panel - 11/21/17 09:44 Blood leukocytes automated count (number/volume) 4.8 10*3/uL 4.3-11.0 Blood erythrocytes automated count (number/volume) 3.94 10*6/uL 4.35-5.85 Venous blood hemoglobin measurement (mass/volume) 11.3 g/dL 11.5-16.0 Blood hematocrit (volume fraction) 31 % 35-52 Automated erythrocyte mean corpuscular volume 78 [foz_us] 80-99 Automated erythrocyte mean corpuscular hemoglobin (mass per erythrocyte) 29 pg 25-34 Automated erythrocyte mean corpuscular hemoglobin concentration measurement ( mass/volume) 37 g/dL 32-36 Automated erythrocyte distribution width ratio 14.2 % 10.0-14.5 Automated blood platelet count (count/volume) 300 10*3/uL 130-400 Automated blood platelet mean volume measurement 10.2 [foz_us] 7.4-10.4 Encounters ACCT No. Visit Date/Time Discharge Status Pt. Type Provider Facility Loc./Unit Complaint [id number] 01/27/2012 16:07:00 01/27/2012 23:59:59 CLS Outpatient HUMAIRA ENCISO APRN [id number] 06/17/2014 14:00:00 06/17/2014 23:00:00 DIS Outpatient [id number] 04/25/2014 11:17:00 04/25/2014 23:59:59 CLS Outpatient [id number] 01/20/2014 13:50:00 01/20/2014 15:00:00 DIS Outpatient [id number] 01/10/2014 15:09:00 01/10/2014 23:59:59 CLS Outpatient [id number] 12/05/2013 19:15:00 12/05/2013 23:59:59 CLS Outpatient [id number] 12/05/2013 19:30:00 12/05/2013 23:00:00 DIS Emergency [id number] 11/15/2013 15:21:00 11/15/2013 23:59:59 CLS Outpatient [id number] 03/07/2016 05:32:00 03/08/2016 11:59:00 DIS Outpatient Leticia HONG, [facility] E.EPO [id number] 11/03/2017 11:23:00 11/03/2017 23:59:59 CLS Outpatient FRANCISCO HNOG, Heron GOYAL [facility] CATH ATRIAL TACHYCARDIA [id number] 10/13/2017 10:33:00 10/13/2017 23:59:59 CLS Outpatient RENÉ GR MD [facility] CARD I48.0 PAROXYSMAL ARTRIAL FIBRILLATION [id number] 10/07/2017 11:38:00 10/07/2017 23:59:59 CLS Outpatient VALENCIA WILSON DO [facility] CARD HYPERTHYROID [id number] 10/07/2017 08:24:00 10/07/2017 11:25:00 DIS Emergency PATRIZIA TORRES MD [facility] ER HEADACHE SORE THROAT NAUSEA NECK PAIN [id number] 09/23/2017 08:11:00 09/24/2017 12:10:00 DIS Inpatient RENÉ GR MD [facility] ICU AFIB W/ RVR [id number] 08/14/2017 14:07:00 08/14/2017 23:59:59 CLS Outpatient VALENCIA WILSON DO [facility] RAD PULMONARY NODULE [id number] 06/04/2017 21:38:00 06/04/2017 23:13:00 DIS Emergency ALTON RICHARDS MD [facility] ER HIGH BLOOD PRESSURE [id number] 03/27/2017 09:33:00 03/27/2017 23:59:59 CLS Outpatient VALENCIA WILSON DO [facility] RAD LOSS OF HEIGHT, MENOPAUSE [id number] 11/09/2016 18:28:00 11/09/2016 21:01:00 DIS Emergency SHANNON FOSTER [facility] ER HIVES [id number] 04/12/2016 08:12:00 04/12/2016 09:23:00 DIS Outpatient YUVAL ERIC MD [facility] CARD SPONDYLOSIS WO MLEOPATHY [id number] 02/21/2016 09:53:00 02/21/2016 16:55:00 DIS Inpatient RENÉ GR MD [facility] CSD AFIB [id number] 01/03/2016 07:47:00 01/03/2016 09:23:00 DIS Outpatient RENÉ GR MD [facility] CATH PALPITATIONS,DIZZINESS [id number] 12/01/2015 09:24:00 12/01/2015 10:27:00 DIS Outpatient YUVAL ERIC MD [facility] CARD 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 [id number] 11/24/2015 10:43:00 11/24/2015 12:07:00 DIS Outpatient YUVAL ERIC MD [facility] CARD 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 [id number] 10/29/2015 20:46:00 10/30/2015 17:15:00 DIS Outpatient RENÉ GR MD [facility] CATH CHEST PAIN [id number] 09/20/2015 12:16:00 09/20/2015 23:59:59 CLS Outpatient LORNE HONG, HANNAH Selby [facility] RAD RADICULOPATHY [id number] 11/21/2017 10:26:00 Document Registration [id number] 02/16/2013 09:54:00 Document Registration [id number] 02/11/2013 15:47:00 Document Registration [id number] 01/29/2013 17:51:00 Document Registration [id number] 11/27/2010 09:48:00 Document Registration
== END | disposition home or self-care (01) ==
LOC: CATH 09:04
PROVIDERS: ATTEND Internal Medicine Cardiovascular Disease
DX: I48.0 Paroxysmal atrial fibrillation (principal); I10 Essential (primary) hypertension; R00.0 Tachycardia, unspecified; R00.2 Palpitations; Z79.899 Other long term (current) drug therapy
CPT/HCPCS: 36415; 71045; 80053; 80061; 81000; 85027; 85610; 85730; 87081; 87088; 92960; 93005

== ENCOUNTER 2017-12-02 14:04 | Inpatient (IN) | payer MEDICARE, OTHER ==
[~2017-12-02] VITALS: Ht 160 cm; Wt 72.2 kg
[2017-12-02] VITALS (8 sets, daily range): BP systolic 88–133; BP diastolic 63–96
[~2017-12-02 14:04] MED LIST changes: -LIDOCAINE 2% VISCOUS 15 ML UDC ONE; -MIDAZOLAM 5 MG/5 ML (VERSED) VIAL ONE; -NS IV 1000 ML 1,000 ML IV SCH; -NS IV 1000 ML 1,000 ML ONE; -proPOfol 200 MG/20 ML (DIPRIVAN) VIAL IV ONE
--- OUTSIDE RECORDS SUMMARY | 2017-12-02 14:08 | XMS REPORT | Continuity of Care Document ---
Author Author [employer] Organization [facility] Address Unknown Phone Unavailable Care Team Providers Care Market Development Director Name Role Phone [employer] Unavailable Unavailable Problems Medications Allergies, Adverse Reactions, Alerts Immunizations Results Vital Signs Encounters Location Location Details Encounter Type Encounter Number Reason For Visit Attending Provider ADM Date DC Date Status Source OUTPATIENT [id number] BRODY RUSSELL 11/24/2017 11/24/2017 Active [facility] O Active [facility] Procedures Plan of Care Social History Assessment and Plan Family History Advance Directives Functional Status
--- OUTSIDE RECORDS SUMMARY | 2017-12-02 14:09 | XMS REPORT | Encounter Summary ---
Author Author [facility] Organization [facility] Address Unknown Phone Unavailable Care Team Providers Care Ordinary Seaman Name Role Phone PCP Unavailable Reason for Visit * Reason Comments New Patient A-fib; Cardioverted 11/21/16; Ref by Dr. Price Encounter Details Date Type Department Care Team Description 11/24/2017 Office Visit [facility] Cardiology Vicente Coulter MD New Patient (A-fib; [address] Cardioverted 11/21/16; Ref [address] Price) [place] [address] [place] [address] [phone] Social History Tobacco Use Types Packs/Day Years Used Date Never Smoker Smokeless Tobacco: Never Used Alcohol Use Drinks/Week oz/Week Comments Yes 1 Glasses of 0.6 wine Sex Assigned at Date Recorded Not on file as of this encounter Last Filed Vital Signs Vital Sign Reading Time Taken Blood Pressure 140/90 11/24/2017 1:40 PM BRIM FLEXER Pulse 60 11/24/2017 1:40 PM BRIM FLEXER Temperature - - Respiratory Rate - - Oxygen Saturation - - Inhaled Oxygen - - Concentration Weight 72.1 kg (159 lb) 11/24/2017 1:40 PM BRIM FLEXER Height 160 cm (5' 3") 11/24/2017 1:40 PM BRIM FLEXER Body Mass Index 28.17 11/24/2017 1:40 PM BRIM FLEXER in this encounter Instructions * Patient Instructions - Alethea Rader RN - 11/24/2017 2:00 PM BRIM FLEXER call regarding your decision regarding the ablation after you talk with Dr Santos In order to provide you the best care possible we ask that you follow up as below: For NON-URGENT questions please contact us through your [employer] account. For all medication refills please contact your pharmacy or send a request through [employer]. For all questions that may need to be addressed urgently please call the nursing triage line at [phone] Friday - Friday 8-5 only. Please leave a detailed message with your name, date of , and reason for your call. To schedule an appointment call [phone]. Please allow 10-15 business days for the results of any testing to be reviewed. Please call our office if you have not heard from a nurse within this time frame. in this encounter Progress Notes * Vicente Coulter MD - 11/24/2017 2:00 PM BRIM FLEXER Formatting of this note may be different from the original. Date of Service: 11/24/2017 Mary Roth is a 72 y.o. female. HPI I had the pleasure of seeing your patient Mary Roth in the [facility] as a part of the [facility] Cardiology [facility] office today for initial Electrophysiolgy Consultation regarding her Paroxysmal Atrial Fibrillation. She is typically followed and was referred by my friend and colleague Dr. Price , her primary shale miner blasting, in [facility]. Ms. Roth is an exceptionally pleasant 72 y.o. female, who is accompanied by her equally pleasant male friend. All data in this note, including the past medical history, was newly collected today. Her PMHx briefly includes: Paroxysmal AFIB S/P Ablation; Wide Complex Tachycardia while on Flecainide; T Wave Inversion On Her Baseline Asymptomatic ECG; Normal LV Function; Nonobstructive CAD-by Cath by Dr. Price 2014; Medtronic Reveal LinQ Implantable Looping Monitor device implantation 01/03/[address] Price; Hypertension; Anticoagulation; Hyperlipidemiaintolerant of statins with elevated LFTs-->Maintained on Fenofibrate; Spasmodic Dysphonia; Low back pain with interventricular disc disease; nonobstructive carotid artery stenosis by duplex 05/2017Dr. Price. She has a [id number] score of 3: Female, HTN, and age > 65 yo. NOTE--she apparently has had some elevated LFTs when on amiodarone in the past. -- ~ 2012: Per Pt she thinks her AFIB dates back to ~ 2012. -- 2014: Wide Complex Tachycardia while on Flecainide--> Flecainide Discontinued and Cardiac Catheterization pursued.--> No recurrent wide-complex tachycardia. -- 10/30/15: Cardiac catheterization with Dr. Price with nonobstructive disease -- 12/2015: Medtronic Reveal LinQ Implantable Looping Monitor device Implantation by Dr. Price -- 02/2016: AFIB Ablation at OSH-she Apparently underwent AFIB Ablation by Dr. Kelly in [place], [place] -- Post AFIB Ablation--unclear what antiarrhythmic drug therapy she was on it for how long. ALTHOUGH, except for one brief episode of AFIB last year (2015), she apparently did not have significant recurrent atrial fibrillation until around 09/2017 -- 09/2017: Recurrent AFIB--> 09/23/17 Cardioversion-->Dr. Price initiated her on Flecainide--wide-complex tachycardia noted while on Flecainide.> Therefore Flecainide was discontinued. -- : Recurrent AFIB--> initiated on Multaq -- 11/03/17: Cardioversion on Multaq for recurrent AFIB -- 11/20/2017: OV with Dr. Price-->Pt back in coarse AFIB --> patient apparently had stopped her Multaq at some point prior to her recurrent AFIB presentation. At that time Dr. Price reinitiated Multaq -- 11/21/17: Cardioversion back on Multaq for a day and referred her for EP consultation to discuss further options regarding her AFIB management. She has been on long-standing Toprol-XL therapy as well as Diltiazem. She has been on anticoagulation. SHE STATES that in 2015, post Ablation she was off AA therapy until she began having recurrent AFIB around 09/2017. She states Over the last year prior, since her ablation she only remembers having only one episode of AFIB. Since 09/2017, She states she underwent two cardioversions, one without AA therapy and one post-Multaq. she has had increasing recurrent AFIB over the last 6-8 weeks. She had numerous episodes in October. She has had nearly persistent atrial fibrillation leading up to November 21. Since her cardioversion for her persistent AFIB at [facility] in [facility] on 11/21/17 and has had no recurrent atrial arrhythmias, that is over the last 3 days. She also states on 11/21/16, at the time of CVRT her Toprol-XL was increased to 50 mg BID She states that she will feel palpitations when she is laying down at night to go to bed but otherwise is not necessarily aware of her AFIB, especially since her Toprol has been increased. However, she has been experiencing increased SOA with activity over last 6-8 months, which he states is clearly worse with her AFIB. She notes that she is short of breath when she is walking from the parking garage to her office, which is just 2-[address] She is currently consuming one 8 oz cup of coffee per day. She drinks one glass of wine per week. She denies any bleeding issues-blood in the urine, blood in the stool, tolerating anticoagulation without obvious issue. She denies any chest discomfort, lightheadedness, dizziness, near syncope or syncope, PND or orthopnea. FHx, SHx and ROS documented and I have reviewed, with some pertinent features to include: No FHx of premature CAD. She is a Non-Smoker. Most pertinent ROS is included/discussed throughout the note, e.g. HPI and A/P. ASSESSMENT AND PLAN: -- Paroxysmal AFIB S/P Ablation -- T wave inversion on baseline asymptomatic ECG -- Normal LV Function -- Nonobstructive CAD -- Medtronic Reveal LinQ Implantable Looping Monitor device implantation Dr. Price -- CAD -- Prior Wide-Complex Tachycardia on Flecainide-->No recurrences -- Hypertension -- Anticoagulation -- Hyperlipidemia -- Spasmodic Dysphonia -- Low back pain with interventricular disc disease We had a lengthy discussion regarding Atrial Fibrillation, the pathophysiology, the mechanism, and therapeutic options. We discussed what I call the 3 R's: The Rhythm being abnormal; the Rate being Rapid; and the Risk of stroke. We discussed rhythm-control strategies to include continuing to take Multaq, switching Antiarrhythmic Therapy, or pursuing an AFIB Ablation procedure. She was interested in learning more about a REDO AFIB Ablation. We discussed that the 5 year cure rate a redo AFIB ablation procedure for her is approximately 60-70%. We discussed the procedure and risks of an AFIB Ablation procedure to include, but not limited to: , [place], stroke, cardiac perforation, pulmonary vein stenosis, diaphragmatic paralysis via phrenic nerve injury, catheter entrapment in the mitral valve or other location, bleeding, infection, DVT, vascular injury , or worsening atrial arrhythmias. There is also a low risk of possible esophageal ulceration, atrial esophageal fistula, atrial bronchial fistula, or even possible need for major surgery to address one of these complications. We discussed the procedure is done under general anesthesia. We discussed that recurrent AFIB in the first 2-3 months post procedure is a part of the healing process, and has no impact on the overall longer term success of the ablation. Therefore, we use an Antiarrhythmic Drug for the first 3 months post-procedure in an effort to reduce the incidence of these events. We did discuss that some people even undergo a third AFIB RFA but usually that is related more to a recurrence of an atypical AFL, etc. Finally, we discussed the differences between an RFA vs Cryo-Ablation. However since this is a REDO AFIB ablation I have recommended a RF approach and we will use the CARTO 3-D Mapping System since often we are doing segmental "touchup" of the prior ablated pulmonary veins. She expressed a verbal understanding of these details, the procedure, and the risks. HOWEVER, she wishes to think about her options, discussed with her family, and states she will call our office regarding her decision. If we proceed with a repeat due AFIB ablation, for the procedure, we will: -- Obtain a CT Angiogram to assess her PV anatomy, and proceed accordingly. -- Obtain the procedure note regarding her prior AFIB ablation that was done again by Dr. Kelly in [place] in February 2016 -- Obtain a ROSIO prior to the procedure. -- Done under General Anesthesia. -- Hold her Eliquis 2 days prior to procedure, and bridge with Lovenox. -- Immediately post-procedure, she will reinitiate Anticoagulation Tx with Eliquis. -- Post-ablation, she will reinitiate his prior Antiarrhythmic Therapy with Multaq. We also discussed her elevated blood pressure today. See plan below regarding that. I also do not have any prior ECGs that showed T-wave inversion. She is asymptomatic. This of course raises concern. She did have a cardiac catheterization however by Dr. PRICE in 2014 that apparently showed nonobstructive CAD. I will contact Dr. Joseph regarding this issue to see if stress imaging is warranted.AFIB PLAN: -- She would like to think about pursuing a procedure or alternative plan and will call our office with her decision -- I asked her to speak with Dr. Price regarding her ECG -- I have asked her to Check her BP (Blood Pressure) daily and vary the time of day she checks it. -- We discussed that exercise helps with her blood pressure and she should try to get at least 30 minutes of moderate intensity exercise at least 4 days a week. -- We discussed that her desired BP is less than 140 and less than 90. -- Since she is on anticoagulation, I have asked her to monitor for any signs or symptoms of bleeding, including blood in the stool or urine, etc and to contact her PMD if any occurs. -- We will also continue to utilize her Medtronic LinQ Implantable Monitor to track her AFIB recurrences post procedure with change in medication. Ms. Roth was educated regarding plan of care. She was instructed to call our office with any questions or concerns, as well as to notify us of any new or worsening symptoms. She verbalized understanding. I appreciate the opportunity to participate in the care of your patient. Please do not hesitate to contact me directly if you have any questions or further insights into her care. I have scheduled her follow-up with me as needed. Vitals: 11/24/17 1340 BP: 140/90 Pulse: 60 Weight: 72.1 kg (159 lb) Height: 1.6 m (5' 3") Body mass index is 28.17 kg/(m^2). 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 HENT: Negative. Eyes: Negative. Cardiovascular: Positive for dyspnea on exertion and irregular heartbeat. Respiratory: Positive for shortness of breath. Endocrine: Negative. Hematologic/Lymphatic: Bruises/bleeds easily. Skin: Negative. Musculoskeletal: Negative. Gastrointestinal: Negative. Genitourinary: Negative. Neurological: Negative. Psychiatric/Behavioral: Negative. Allergic/Immunologic: Negative. Physical Exam Constitutional: She is in no acute distress, resting comfortably. Skin/Integument: Warm and dry. Eyes: PERRL, sclera are non-icteric and no xanthelasmas noted. ENT: Hearing is intact, Oropharynx is clear and moist. Heme/Lym/Immun: Supple neck, without thyromegaly. Respiratory-Pulmonary/Chest: Effort normal and breath sounds normal. No respiratory distress or accessory muscle use. No obvious tracheal deviation. Clear to auscultation bilaterally. Cardiovascular: No evidence of increased jugular venous pressure, carotids are 2+/4+ equal bilaterally, without obvious bruit. Regular rhythm, S1, S2. 2/6 systolic murmur noted at the LSB. No heaves, thrills or rubs. Musc/Skeletal-Extremities: Without significant peripheral edema. With what appears to be full ROM. Neuro: Patient is alert and oriented to person, place, and time. Psych: Patient does not appear anxious, she appears appropriate, with normal non-pressured speech and what appears to be appropriate judgement Cardiovascular Studies ECG documents sinus rhythm at 60 bpm with isolated PAC T-wave inversion is noted in V1 through V4 as well as the inferior leads. No preexcitation noted. Valeritastronic Reveal LinQ Implantable Looping Monitor Full device check performed with reprogramming which I have extensively reviewed. Changes, if done, as discussed below and is detailed in other dictation/note. Interestingly it looks like during September she started having increasing AFIB. Over the last year prior she had only one episode. She had numerous episodes in October. Raj episode November 18, , and then again on November 21. In fact ultimately she underwent cardioversion [facility] on 11/21/17 and has had no recurrent atrial arrhythmias over the last 3 days. The device is picked up numerous "pauses" however they appear to be under sensing except on 09/22/17 had some bradycardia she converted from an atrial tachycardia/AFIB back to sinus rhythm. She has had some sinus bradycardia. Problems Addressed Today Encounter Diagnoses Name Primary? Paroxysmal atrial fibrillation (HCC) Yes Current Medications (including today's revisions) ACETAMINOPHEN/DIPHENHYDRAMINE (TYLENOL PM PO) Take by mouth. alprazolam (XANAX) 1 mg PO tablet Take 1 mg by mouth twice daily. 1 BY MOUTH TWICE A DAY amiodarone (CORDARONE) 200 mg tablet Take 200 mg by mouth daily. apixaban (ELIQUIS) 5 mg tab tablet Take 5 mg by mouth twice daily. busPIRone (BUSPAR) 5 mg tablet Take 5 mg by mouth daily. dronedarone (MULTAQ) 400 mg tablet Take 400 mg by mouth twice daily with meals. enalapril (VASOTEC) 2.5 mg tablet Take 2.5 mg by mouth daily. magnesium oxide (MAG-OX) 400 mg tablet Take 400 mg by mouth daily. metoprolol XL (TOPROL XL) 50 mg tablet Take 50 mg by mouth twice daily. omeprazole DR(+) (PRILOSEC) 40 mg capsule Take 40 mg by mouth daily. pravastatin (PRAVACHOL) 40 mg tablet Take 40 mg by mouth daily. sertraline (ZOLOFT) 50 mg tablet Take 50 mg by mouth daily. Documentation recorded by Sheng Frazier, acting as scribe for Vicente Coulter M.D. in this encounter Plan of Treatment Date Type Specialty Care Team Description 11/27/2017 Procedure Pass Cardiology 11/27/2017 Procedure Pass Cardiology Name Priority Associated Diagnoses Order Schedule ECG 12-LEAD Routine Paroxysmal atrial Ordered: 11/24/2017 fibrillation (HCC) as of this encounter Visit Diagnoses Diagnosis Paroxysmal atrial fibrillation (HCC) - Primary Atrial fibrillation in this encounter
--- OUTSIDE RECORDS SUMMARY | 2017-12-02 14:09 | XMS REPORT | Encounter Summary ---
Author Author [facility] Organization [facility] Address Unknown Phone Unavailable Care Team Providers Care Joiners Supervisor Name Role Phone PCP Unavailable Reason for Visit * Reason Comments Follow-up Phone Call attempted to return call, phone cut off Encounter Details Date Type Department Care Team Description 11/25/2017 Telephone [facility] Cardiology Alethea Rader RN Follow- up Phone Call [address] (attempted to return [address] call, phone cut off) [place], [place] [id number] Social History Tobacco Use Types Packs/Day Years Used Date Never Smoker Smokeless Tobacco: Never Used Alcohol Use Drinks/Week oz/Week Comments Yes 1 Glasses of 0.6 wine Sex Assigned at Date Recorded Not on file as of this encounter Miscellaneous Notes * Telephone Encounter - Alethea Rader RN - 11/25/2017 12:48 PM GROUP SALES MANAGER received message Mary called back however, no answer with return call * Telephone Encounter - Alethea Rader RN - 11/25/2017 12:48 PM GROUP SALES MANAGER Formatting of this note may be different from the original. [facility] [place] patient Received: Today ARACELIS Rainey Mac Nurse Kerri KHALIL from patient on triage line. She is so sorry she could not get to phone on time. Please call back at home # and if she does not answer, just call right back. Said thank you. Returned call, she had questions about procedures recommended by Dr Coulter in clinic yesterday discussed need for PAT, labs, CCTA and possibly update h/p one day and atrial fibrillation ablation second day she is going to discuss with her son about dates as well as if they would like to do an overnight stay at [facility] due to long travel for son Mary will c/b and let us know * Telephone Encounter - Alethea Rader RN - 11/25/2017 9:11 AM GROUP SALES MANAGER ----- Message from Yesy Tovar LPN sent at 11/25/2017 9:04 AM GROUP SALES MANAGER ----- Regarding: MPE- 2 questions VM from patient on triage line. Said that she forgot to ask him 2 questions when she saw him yesterday. She is sorry. Call back at home. in this encounter Plan of Treatment Date Type Specialty Care Team Description 11/27/2017 Procedure Pass Cardiology 11/27/2017 Procedure Pass Cardiology as of this encounter Visit Diagnoses Not on filein this encounter
--- OUTSIDE RECORDS SUMMARY | 2017-12-02 14:09 | XMS REPORT | Encounter Summary ---
Author Author [facility] Organization [facility] Address Unknown Phone Unavailable Care Team Providers Care Conductor And Engineer Name Role Phone PCP Unavailable Reason for Visit * Reason Comments Other cta requested Encounter Details Date Type Department Care Team Description 11/27/2017 Telephone [facility] Cardiology Gloria Verma RN Other ( cta requested) [address] [place] [address] Social History Tobacco Use Types Packs/Day Years Used Date Never Smoker Smokeless Tobacco: Never Used Alcohol Use Drinks/Week oz/Week Comments Yes 1 Glasses of 0.6 wine Sex Assigned at Date Recorded Not on file as of this encounter Miscellaneous Notes * Telephone Encounter - Gloria Verma RN - 11/27/2017 12:21 PM COOK STATION ----- Message from Alethea Rader RN sent at 11/26/2017 3:32 PM COOK STATION ----- Regarding: pre AF ablation ROSIO she would like to do the procedure if at all possible on 12/10 request to CCTA nurses and email requesting to PAT Dr Coulter's patient. nice lady, her son will be bringing her. this will be a redo ablation - orginally completed at another hospital thx in this encounter Plan of Treatment Date Type Specialty Care Team Description 11/27/2017 Procedure Pass Cardiology 11/27/2017 Procedure Pass Cardiology as of this encounter Visit Diagnoses Not on filein this encounter
--- OUTSIDE RECORDS SUMMARY | 2017-12-02 14:09 | XMS REPORT | Encounter Summary ---
Author Author [facility] Organization [facility] Address Unknown Phone Unavailable Care Team Providers Care Sausage Cooker Name Role Phone PCP Unavailable Reason for Visit * Reason Comments Other Cancel ablation Encounter Details Date Type Department Care Team Description 12/02/2017 Telephone [facility] Cardiology Katharine Crum RN Other (Cancel ablation) [address] [facility] [address] [place] [address] Social History Tobacco Use Types Packs/Day Years Used Date Never Smoker Smokeless Tobacco: Never Used Alcohol Use Drinks/Week oz/Week Comments Yes 1 Glasses of 0.6 wine Sex Assigned at Date Recorded Not on file as of this encounter Miscellaneous Notes * Telephone Encounter - Katharine Crum RN - 12/02/2017 1:51 PM SCHOOL OPERATIONS MANAGER Mary called us back. I was able to speak with her. She would like to cancel her ablation due to transportation. She will work on arranging transportation and let us know when she wants to reschedule. DIANE Hill * Telephone Encounter - Katharine Crum RN - 12/02/2017 12:12 PM SCHOOL OPERATIONS MANAGER I called the patient back as requested to discuss the below. I had to leave a message for her to call us back. Notified DIANE Healy. DIANE Hill ----- Message from Daisy Osman sent at 12/02/2017 11:58 AM SCHOOL OPERATIONS MANAGER ----- Regarding: MPE,Cancel ablation Patient states she is going to have to cancel her ablation. Home is the call back in this encounter Plan of Treatment Date Type Specialty Care Team Description 11/27/2017 Procedure Pass Cardiology 11/27/2017 Procedure Pass Cardiology as of this encounter Visit Diagnoses Not on filein this encounter
--- OUTSIDE RECORDS SUMMARY | 2017-12-02 14:09 | XMS REPORT | Encounter Summary ---
Author Author [facility] Organization [facility] Address Unknown Phone Unavailable Care Team Providers Care Studio Operations Engineer In Charge Name Role Phone PCP Unavailable Reason for Visit * Reason Comments Appointment botox Encounter Details Date Type Department Care Team Description 10/28/2017 Telephone [facility] Silverio Walker MD Appointment (botox) Physicians - ENT [email or web address] [place] [address] OFFICE BLDG [phone] [place] [address] Social History Tobacco Use Types Packs/Day Years Used Date Never Smoker Smokeless Tobacco: Never Used Alcohol Use Drinks/Week oz/Week Comments Yes 1 Glasses of 0.6 wine Sex Assigned at Date Recorded Not on file as of this encounter Miscellaneous Notes * Telephone Encounter - Brielle Raya RN - 10/28/2017 10:51 AM DEPUTY SHERIFF Returned patient call; she wants to schedule an appointment for a botox injection with Dr. Walker for February 04 at 1:00pm. She wants to keep her appointment with Dr. Baldwin at this time. Advised patient to please call Dr. Baldwin if she changes her mind and wants to cancel. Patient voiced understanding. in this encounter Plan of Treatment Date Type Specialty Care Team Description 11/27/2017 Procedure Pass Cardiology 11/27/2017 Procedure Pass Cardiology as of this encounter Visit Diagnoses Not on filein this encounter
--- OUTSIDE RECORDS SUMMARY | 2017-12-02 14:09 | XMS REPORT | Encounter Summary ---
Author Author [facility] Organization [facility] Address Unknown Phone Unavailable Care Team Providers Care Gold Frame Assembler Name Role Phone PCP Unavailable Encounter Details Date Type Department Care Team Description 11/24/2017 [facility] Cardiology Vicente Coulter MD Encounter [address] [place] [address] [place] [address] [place] [address] [phone] Social History Tobacco Use Types Packs/Day Years Used Date Never Smoker Smokeless Tobacco: Never Used Alcohol Use Drinks/Week oz/Week Comments Yes 1 Glasses of 0.6 wine Sex Assigned at Date Recorded Not on file as of this encounter Medications at Time of Discharge Medication Sig. Disp. Refills Start Date End Date ACETAMINOPHEN/DIPHENHYDRA Take by mouth. MINE (TYLENOL PM PO) alprazolam (XANAX) 1 mg Take 1 mg by mouth twice PO tablet daily. 1 BY MOUTH TWICE A DAY amiodarone (CORDARONE) Take 200 mg by mouth 200 mg tablet daily. apixaban (ELIQUIS) 5 mg Take 5 mg by mouth twice tab tablet daily. busPIRone (BUSPAR) 5 mg Take 5 mg by mouth daily. tablet dronedarone (MULTAQ) 400 Take 400 mg by mouth mg tablet twice daily with meals. enalapril (VASOTEC) 2.5 Take 2.5 mg by mouth mg tablet daily. magnesium oxide (MAG-OX) Take 400 mg by mouth 400 mg tablet daily. metoprolol XL (TOPROL XL) Take 50 mg by mouth twice 50 mg tablet daily. omeprazole DR(+) Take 40 mg by mouth (PRILOSEC) 40 mg capsule daily. pravastatin (PRAVACHOL) Take 40 mg by mouth 40 mg tablet daily. sertraline (ZOLOFT) 50 mg Take 50 mg by mouth tablet daily. 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
--- OUTSIDE RECORDS SUMMARY | 2017-12-02 14:09 | XMS REPORT | Encounter Summary ---
Author Author [facility] Organization [facility] Address Unknown Phone Unavailable Care Team Providers Care Senior Controls Analyst Name Role Phone PCP Unavailable Encounter Details Date Type Department Care Team Description 11/27/2017 Procedure Pass [facility] Cardiology [address] [place] [address] Social History Tobacco Use Types Packs/Day Years Used Date Never Smoker Smokeless Tobacco: Never Used Alcohol Use Drinks/Week oz/Week Comments Yes 1 Glasses of 0.6 wine Sex Assigned at Date Recorded Not on file as of this encounter Plan of Treatment Date Type Specialty Care Team Description 11/27/2017 Procedure Pass Cardiology 11/27/2017 Procedure Pass Cardiology as of this encounter Visit Diagnoses Not on filein this encounter
--- OUTSIDE RECORDS SUMMARY | 2017-12-02 14:09 | XMS REPORT | Encounter Summary ---
Author Author [facility] Organization [facility] Address Unknown Phone Unavailable Care Team Providers Care Clothing Presser Name Role Phone PCP Unavailable Reason for Visit * Reason Comments Appointment Request botox Encounter Details Date Type Department Care Team Description 10/07/2017 Telephone [facility] Silverio Walker MD Appointment Request Physicians - ENT [address] (botox) 3RD FLOOR [address] [place] [address] OFFICE BLDG [phone] [place] [address] Social History Tobacco Use Types Packs/Day Years Used Date Never Smoker Smokeless Tobacco: Never Used Alcohol Use Drinks/Week oz/Week Comments Yes 1 Glasses of 0.6 wine Sex Assigned at Date Recorded Not on file as of this encounter Miscellaneous Notes * Telephone Encounter - Brielle Raya RN - 10/07/2017 8:22 AM MUSIC PUBLICIST Returned patient call. She requested an appointment [...]
--- OUTSIDE RECORDS SUMMARY | 2017-12-02 14:09 | XMS REPORT | Encounter Summary ---
Author Author [facility] Organization [facility] Address Unknown Phone Unavailable Care Team Providers Care Perl Programmer Name Role Phone PCP Unavailable Encounter Details Date Type Department Care Team Description 11/28/2017 Orders Only [facility] Elina Grijalva RN Atrial fibrillation, [address] unspecified type (HCC) [place] [address] (Primary Dx) [phone] Social History Tobacco Use Types Packs/Day Years Used Date Never Smoker Smokeless Tobacco: Never Used Alcohol Use Drinks/Week oz/Week Comments Yes 1 Glasses of 0.6 wine Sex Assigned at Date Recorded Not on file as of this encounter Plan of Treatment Date Type Specialty Care Team Description 11/27/2017 Procedure Pass Cardiology 11/27/2017 Procedure Pass Cardiology Name Priority Associated Diagnoses Order Schedule BASIC METABOLIC PANEL Routine Atrial fibrillation, Expected: 11/29/2017 unspecified type (HCC) (Approximate), Expires: 11/28/2018 as of this encounter Visit Diagnoses Diagnosis Atrial fibrillation, unspecified type (HCC) - Primary in this encounter
--- OUTSIDE RECORDS SUMMARY | 2017-12-02 14:09 | XMS REPORT | Clinical Summary ---
Author Author [facility] Organization [facility] Address Unknown Phone Unavailable Care Team Providers Care Tax Compliance Representative Name Role Phone PCP Unavailable Source Comments Some departments are not documenting in the electronic medical record. If you do not see the information that you expected, contact Release of Information in the Health Information Management department at [phone] for further assistance in locating additional records.[facility] Allergies Active Allergy Reactions Severity Noted Date Comments Penicillin G UNKNOWN Low 04/02/2017 Sulfa (Sulfonamide UNKNOWN Low [...] XL) Take 50 mg by mouth twice Active 50 mg tablet daily. omeprazole DR(+) Take 40 mg by mouth Active (PRILOSEC) 40 mg capsule daily. pravastatin (PRAVACHOL) Take 40 mg by mouth Active 40 mg tablet daily. sertraline (ZOLOFT) 50 mg Take 50 mg by mouth Active tablet daily. busPIRone (BUSPAR) 5 mg Take 5 mg by mouth daily. Active tablet dronedarone (MULTAQ) 400 Take 400 mg by mouth Active mg tablet twice daily with meals. 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 Encounters Date Type Specialty Care Team Description 12/02/2017 Telephone Cardiology Katharine Crum RN Other (Cancel ablation) 11/28/2017 Orders Only Cardiology Elina Grijalva RN Atrial fibrillation , unspecified type (HCC) (Primary Dx) 11/27/2017 Orders Only Cardiology Gloria Verma RN Atrial fibrillation, unspecified type (HCC) 11/27/2017 Telephone Cardiology Gloria Verma RN Other (cta requested ) 11/26/2017 Telephone Cardiology Alethea Rader RN Appointment (pre LAAA testing and procedure dates) 11/25/2017 Telephone Cardiology Alethea Rader RN Follow-up Phone Call (attempted to return call, phone cut off) 11/24/2017 Office Visit Cardiology Vicente Coulter MD New Patient (A- fib; Cardioverted 11/21/16; Ref by Dr. Price) 11/24/2017 Hospital Cardiology Vicente Coulter MD Encounter 11/21/2017 Telephone Cardiology Alethea Rader RN 10/28/2017 [...] Taken Blood Pressure 140/90 11/24/2017 1:40 PM ENROLLMENT COORDINATOR Pulse 60 11/24/2017 1:40 PM ENROLLMENT COORDINATOR Temperature - - Respiratory Rate - - Oxygen Saturation - - Inhaled Oxygen - - Concentration Weight 72.1 kg (159 lb) 11/24/2017 1:40 PM ENROLLMENT COORDINATOR Height 160 cm (5' 3") 11/24/2017 1:40 PM ENROLLMENT COORDINATOR Body Mass Index 28.17 11/24/2017 1:40 PM ENROLLMENT COORDINATOR Plan of Treatment Date Type Specialty Care Team Description 11/27/2017 Procedure Pass Cardiology 11/27/2017 Procedure Pass Cardiology Health Maintenance Due Date Last Done Comments HEPATITIS C SCREENING 1946 PHYSICAL (COMPREHENSIVE) 1953 EXAM PERTUSSIS VACCINE 1957 TETANUS VACCINE 1963 BREAST CANCER SCREENING 1986 COLORECTAL CANCER 1996 SCREENING SHINGLES VACCINE 2006 OSTEOPOROSIS SCREENING 2011 PREVNAR/PNEUMOVAX (#1) 2011 INFLUENZA VACCINE 06/17/2017 Results Not on filefrom Last 3 Months
--- OUTSIDE RECORDS SUMMARY | 2017-12-02 14:09 | XMS REPORT | Encounter Summary ---
Author Author [facility] Organization [facility] Address Unknown Phone Unavailable Care Team Providers Care Tentering Machine Feeder Name Role Phone PCP Unavailable Encounter Details Date Type Department Care Team Description 11/21/2017 Telephone [facility] Cardiology Alethea Rader, RN [address] [place] [address] Social History Tobacco Use Types Packs/Day Years Used Date Never Smoker Smokeless Tobacco: Never Used Alcohol Use Drinks/Week oz/Week Comments Yes 1 Glasses of 0.6 wine Sex Assigned at Date Recorded Not on file as of this encounter Miscellaneous Notes * Telephone Encounter - Alethea Rader RN - 11/25/2017 10:43 AM CORPORATE SERVICES MANAGER Formatting of this note may be different from the original. E- RT Call patient Received: Today Yesy Tovar LPN P Mac Nurse Kerri KHALIL from patient on [...] like to do an overnight stay at hotel due to long travel for son Mary will c/b and let us know * Telephone Encounter - Alethea Rader RN - 11/21/2017 10:40 AM CORPORATE SERVICES MANAGER offered friday, november 24, 1:30 to interrogate linq and 2:[address] Coulter. Mrs Roth having cardioversion today by Dr Santos his office will fax records [place] to the EP right fax she does have an ilr so will schedule her before her appt * Telephone Encounter - Alethea Rader, RN - 11/21/2017 10:37 AM CORPORATE SERVICES MANAGER ----- Message from Yesy Tovar LPN sent at 11/21/2017 10:22 AM CORPORATE SERVICES MANAGER ----- Regarding: MPE- appointmet [place] VM on triage line from Stephany with Dr. Beasley office # [phone]. [address] Beasley talked to MPE and patient needs seen [place]. Call Stephany with date and time of appointment and she will call the patient. in this encounter Plan of Treatment Date Type Specialty Care Team Description 11/27/2017 Procedure Pass Cardiology 11/27/2017 Procedure Pass Cardiology Name Priority Associated Diagnoses Date/Time DEVICE EVALUATION - ILR Routine Paroxysmal atrial 11/24/2017 1:14 PM CORPORATE SERVICES MANAGER fibrillation (HCC) as of this encounter Visit Diagnoses Diagnosis Paroxysmal atrial fibrillation (HCC) - Primary Atrial fibrillation in this encounter
--- OUTSIDE RECORDS SUMMARY | 2017-12-02 14:09 | XMS REPORT | Encounter Summary ---
Author Author [facility] Organization [facility] Address Unknown Phone Unavailable Care Team Providers Care Hot Blaster Name Role Phone PCP Unavailable Reason for Visit * Reason Comments Appointment Encounter Details Date Type Department Care Team Description 10/27/2017 Telephone [facility] Kayla Baldwin MD Appointment Physicians - ENT [address]RD FLOOR [address] [place] [address] [place] [address] OFFICE BLDG [phone] [place] [address] Social History Tobacco Use Types Packs/Day Years Used Date Never Smoker Smokeless Tobacco: Never Used Alcohol Use Drinks/Week oz/Week Comments Yes 1 Glasses of 0.6 wine Sex Assigned at Date Recorded Not on file as of this encounter Miscellaneous Notes * Telephone Encounter - Carmel Monzon LPN - 10/29/2017 8:[address] Ms[address] Roth calling to cancel her appointment scheduled for Friday12/05/16 due to transportation issues. She cannot find a ride for any Friday appointments. Pt appears to have appt with Dr. Walker in January. Ms. Roth denies further concerns at this time. * Telephone Encounter - Carmel Monzon LPN - 10/27/2017 4:[address] WORKER Ms. Roth calling to request appointment for Botox injection. First available appointment is 12/05/17 at 1430 MOB. Ms. Roth confirmed date, time and location. Confirms she is covered under Medicare Part B. Denies further concerns at this time. in this encounter Plan of Treatment Date Type Specialty Care Team Description 11/27/2017 Procedure Pass Cardiology 11/27/2017 Procedure Pass Cardiology as of this encounter Visit Diagnoses Not on filein this encounter
--- OUTSIDE RECORDS SUMMARY | 2017-12-02 14:09 | XMS REPORT | Encounter Summary ---
Author Author [facility] Organization [facility] Address Unknown Phone Unavailable Care Team Providers Care Yard Attendant Name Role Phone PCP Unavailable Reason for Visit * Reason Comments Appointment pre LAAA testing and procedure dates Encounter Details Date Type Department Care Team Description 11/26/2017 Telephone [facility] Cardiology Alethea Rader, RN Appointment (pre LAAA [address] testing and procedure [address] dates) [place] [address] Social History Tobacco Use Types Packs/Day Years Used Date Never Smoker Smokeless Tobacco: Never Used Alcohol Use Drinks/Week oz/Week Comments Yes 1 Glasses of 0.6 wine Sex Assigned at Date Recorded Not on file as of this encounter Miscellaneous Notes * Telephone Encounter - Alethea Rader, RN - 11/26/2017 3:28 PM DIAGNOSTIC SALES SPECIALIST talked with Mrs Roth, she would like to proceed with redo LAAA/RFA with Dr Coulter 12/26/17 will need ROSIO in EP lab prior to procedure would like to do testing on 12/10/17 CCTA IB sent email to PAT will request 11:00 schedule appt with ANNALISA at that day 1:45 in this encounter Plan of Treatment Date Type Specialty Care Team Description 11/27/2017 Procedure Pass Cardiology 11/27/2017 Procedure Pass Cardiology as of this encounter Visit Diagnoses Not on filein this encounter
--- OUTSIDE RECORDS SUMMARY | 2017-12-02 14:09 | XMS REPORT | Encounter Summary ---
Author Author [facility] Organization [facility] Address Unknown Phone Unavailable Care Team Providers Care Commercial Correspondent Name Role Phone PCP Unavailable Encounter Details Date Type Department Care Team Description 11/27/2017 Procedure Pass [facility] Cardiology [address] [place] [address] Social History Tobacco Use Types Packs/Day Years [...]
--- OUTSIDE RECORDS SUMMARY | 2017-12-02 14:09 | XMS REPORT | Encounter Summary ---
Author Author [facility] Organization [facility] Address Unknown Phone Unavailable Care Team Providers Care Strategic Partnership Specialist Name Role Phone PCP Unavailable Reason for Visit * Reason Comments Appointment botox Encounter Details Date Type Department Care Team Description 10/28/2017 Telephone [facility] Silverio Walker MD Appointment (botox) Physicians - ENT [address]RD FLOOR POD [address] [place] [address] [place] [address] OFFICE BLDG [phone] [place] [address] Social History Tobacco Use Types Packs/Day Years Used Date Never Smoker Smokeless Tobacco: Never Used Alcohol Use Drinks/Week oz/Week Comments Yes 1 Glasses of 0.6 wine Sex Assigned at Date Recorded Not on file as of this encounter Miscellaneous Notes * Telephone Encounter - Brielle Raya RN - 10/28/2017 9:22 AM CHARGING MACHINE OPERATOR Returned patient call. Patient called this morning [...] injection. in this encounter Plan of Treatment Date Type Specialty Care Team Description 11/27/2017 Procedure Pass Cardiology 11/27/2017 Procedure Pass Cardiology as of this encounter Visit Diagnoses Not on filein this encounter
--- OUTSIDE RECORDS SUMMARY | 2017-12-02 14:09 | XMS REPORT | Encounter Summary ---
Author Author [facility] Organization [facility] Address Unknown Phone Unavailable Care Team Providers Care English Language Arts Teacher Name Role Phone PCP Unavailable Reason for Referral * CTA Procedure Status Reason Specialty Diagnoses / Referred By Referred To Procedures Contact Contact No Auth Needed Cardiology Diagnoses Vicente Coulter Bhg Card Nuclear Atrial [address] fibrillation, [address] [place], [place] ([facility]) [place] [address] [address] [address] [place], [place] Phone: [place] [phone] [address] CARDIAC Phone: STRUCTURE WO/W [phone] CONT * CTA Procedure Status Reason Specialty Diagnoses / Referred By Referred To Procedures Contact Contact New Request Cardiology Diagnoses Vicente Coulter Bhg Card Nuclear Atrial [address] fibrillation, [address] [place] [address] [place], [place] ([facility]) [place] [address] [address] [address] [place], [place] Phone: [place] [phone] [address] LMT[address] CHEST W Phone: CARDIAC [phone] Encounter Details Date Type Department Care Team Description 11/27/2017 Orders Only [facility] Gloria Verma, DIANE Atrial fibrillation, [address] [place] unspecified type ([facility]) [place] [address] Social History Tobacco Use Types Packs/Day Years Used Date Never Smoker Smokeless Tobacco: Never Used Alcohol Use Drinks/Week oz/Week Comments Yes 1 Glasses of 0.6 wine Sex Assigned at Date Recorded Not on file as of this encounter Plan of Treatment Date Type Specialty Care Team Description 11/27/2017 Procedure Pass Cardiology 11/27/2017 Procedure Pass Cardiology Name Priority Associated Diagnoses Order Schedule CT LMTD CHEST W CARDIAC Routine Atrial fibrillation, Expected: 2017 unspecified type (HCC) (Approximate), Expires: 11/27/2018 CT CARDIAC STRUCTURE WO/W CONT Routine Atrial fibrillation, Expected: unspecified type (HCC) (Approximate), Expires: 11/27/2018 as of this encounter Visit Diagnoses Diagnosis Atrial fibrillation, unspecified type (HCC) in this encounter
--- OUTSIDE RECORDS SUMMARY | 2017-12-02 14:12 | XMS REPORT | Continuity of Care Document ---
Author Author [facility] Address Unknown Phone Unavailable Allergies Active Description Code Type Severity Reaction Onset Reported/Identified Relationship to Patient Clinical Status Yes No Known Drug Allergies [id number] Drug Allergy Unknown N/A 08/02/2008 Yes No Known Allergies No Known Allergies Drug Allergy Unknown N/A 2015 Yes amoxicillin [id number] Drug Allergy Unknown hives 11/09/2016 Yes clavulanic acid [id number] Drug Allergy Unknown hives 11/09/2016 Yes Sulfa (Sulfonamide Antibiotics) [id number] Drug Allergy Severe HIVES 2016 Medications There is no data. Problems Date [...] POSTMENOPAUSAL ATROPHIC 07/30/2010 HUMAIRA ENCISO APRN V72.31 ASSESSMENT COORDINATOR EXAM, ROUTINE 09/05/2010 HUMAIRA ENCISO APRN 627.1 POSTMENOPAUSAL BLEEDING 09/05/2010 HUMAIRA ENCISO APRN 795.01 Cerv Pap Smear (+) Atyp Squamous Cells Undetermined Signif 10/17/2010 HUMAIRA ENCISO APRN V58.69 LONG-TERM (CURRENT) USE OF OTHER MEDICATIONS 11/27/2010 Ot 784.40 11/27/2010 Ot V57.3 01/22/2011 HUMAIRA ENCISO APRN 729.1 MYALGIA AND MYOSITIS UNSPECIFIED 03/14/2011 ENCISO ASSOCIATION EXECUTIVE, HUMAIRA R 272.4 OTHER AND UNSPECIFIED HYPERLIPIDEMIA 03/14/2011 HUMAIRA ENCISO APRN R 787.1 HEARTBURN 01/27/2012 HUMAIRA ENCISO APRN R [...] MD Ot I25.10 ATHSCL HEART DISEASE OF [place] CORONARY 10/30/2015 RENÉ GR MD Ot K21.9 GASTRO-ESOPHAGEAL REFLUX DISEASE WITHOUT 10/30/2015 RENÉ GR MD Ot R00.2 PALPITATIONS 10/30/2015 RENÉ GR MD Ot R07.89 OTHER CHEST PAIN 10/30/2015 RENÉ GR MD Ot Z79.899 OTHER SUSTAINMENT LOGISTICS ANALYST (CURRENT) DRUG THERAPY 11/24/2015 YUVAL ERIC MD Ot M47.816 SPONDYLOSIS W/O MYELOPATHY OR RADICULOPA 11/24/2015 YUVAL ERIC MD Ot M53.3 SACROCOCCYGEAL DISORDERS, NOT ELSEWHERE 11/24/2015 YUVAL ERIC MD Ot 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 SYNDROME, NOT ELSEWHERE 11/24/2015 YUVAL ERIC MD Ot Z79.899 OTHER SUSTAINMENT LOGISTICS ANALYST (CURRENT) DRUG THERAPY 12/01/2015 YUVAL ERIC MD Ot M47.816 SPONDYLOSIS W/O MYELOPATHY OR RADICULOPA 12/01/2015 YUVAL ERIC MD, Ot M53.3 SACROCOCCYGEAL DISORDERS, NOT ELSEWHERE 12/01/2015 YUVAL ERIC MD, Ot 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 SYNDROME, NOT ELSEWHERE 12/01/2015 YUVAL ERIC MD, Ot Z79.899 OTHER SUSTAINMENT LOGISTICS ANALYST (CURRENT) DRUG THERAPY 01/03/2016 RENÉ GR MD Ot E78.5 HYPERLIPIDEMIA, UNSPECIFIED 01/03/2016 RENÉ GR MD Ot I10 ESSENTIAL (PRIMARY) HYPERTENSION 01/03/2016 RENÉ GR MD Ot R00.2 PALPITATIONS 01/03/2016 RENÉ GR MD Ot R55 SYNCOPE AND COLLAPSE 01/03/2016 RENÉ GR MD Ot Z79.899 OTHER [facility] (CURRENT) DRUG THERAPY 02/21/2016 RENÉ GR MD Ot E78.5 HYPERLIPIDEMIA, UNSPECIFIED 02/21/2016 RENÉ GR MD Ot F41.9 ANXIETY DISORDER, UNSPECIFIED 02/21/2016 RENÉ GR MD Ot I10 ESSENTIAL (PRIMARY) HYPERTENSION 02/21/2016 RENÉ GR MD Ot I25.10 ATHSCL HEART DISEASE OF [place] CORONARY 02/21/2016 RENÉ GR MD Ot I42.9 CARDIOMYOPATHY, UNSPECIFIED 02/21/2016 RENÉ GR MD Ot I47.2 VENTRICULAR TACHYCARDIA 02/21/2016 RENÉ GR [...] RENÉ GR MD Ot I25.10 02/23/2016 RENÉ RG MD Ot I42.9 02/23/2016 RENÉ GR MD [...] 04/12/2016 YUVAL ERIC MD, Ot Z79.899 OTHER [facility] (CURRENT) DRUG THERAPY [...] 04/24/2016 YUVAL ERIC MD, Ot Z79.899 OTHER SUSTAINMENT LOGISTICS ANALYST (CURRENT) DRUG THERAPY 11/09/2016 SHANNON FOSTER Ot L50.0 ALLERGIC URTICARIA 11/09/2016 SHANNON FOSTER Ot T36.0X5A ADVERSE EFFECT OF PENICILLINS, INITIAL E 11/09/2016 Ot 275.41 HYPOCALCEMIA 11/09/2016 HANNAH PRADHAN MD Ot M54.10 RADICULOPATHY, SITE UNSPECIFIED 03/25/2017 VALENCIA WILSON DO Ot N95.1 MENOPAUSAL AND FEMALE CLIMACTERIC STATES 03/27/2017 VALENCIA WILSON DO, Ot M81.0 AGE-RELATED OSTEOPOROSIS W/O CURRENT PAT 03/27/2017 VALENCIA WILSON DO Ot M81.0 AGE-RELATED OSTEOPOROSIS W/O CURRENT PAT 03/27/2017 WILSON DO, VALENCIA J Ot M81.0 AGE-RELATED OSTEOPOROSIS W/O CURRENT PAT 03/28/2017 VALENCIA WILSON DO Ot M85.89 OT DISRD OF BONE DENSITY AND STRUCTURE, 04/17/2017 VALENCIA WILSON DO Ot M85.89 OT DISRD OF BONE DENSITY AND STRUCTURE, 06/04/2017 ALTON RICHARDS MD, Ot F32.9 MAJOR DEPRESSIVE DISORDER, SINGLE EPISOD 06/04/2017 ALTON RICHARDS MD, Ot F41.9 ANXIETY DISORDER, UNSPECIFIED 06/04/2017 ALTON RICHARDS MD Ot I10 ESSENTIAL (PRIMARY) HYPERTENSION 06/04/2017 ALTON RICHARDS MD Ot K21.9 GASTRO-ESOPHAGEAL REFLUX DISEASE WITHOUT 06/04/2017 [...] DEPRESSIVE DISORDER, SINGLE EPISOD 06/06/2017 ALTON RICHARDS MD Ot F41.9 ANXIETY DISORDER, UNSPECIFIED 06/06/2017 ALTON RICHARDS MD Ot I10 ESSENTIAL (PRIMARY) HYPERTENSION 06/06/2017 ALTON RICHARDS MD Ot K21.9 GASTRO-ESOPHAGEAL REFLUX DISEASE WITHOUT 06/06/2017 [...] OTHER SPECIFIED POSTPROCEDURAL STATES 09/03/2017 VALENCIA WILSON DO, Ot K44.9 DIAPHRAGMATIC HERNIA WITHOUT OBSTRUCTION 09/03/2017 [...] MD Ot I25.10 ATHSCL HEART DISEASE OF [place] CORONARY 09/24/2017 RENÉ GR MD Ot I48.0 [...] Z23 ENCOUNTER FOR IMMUNIZATION 09/24/2017 RENÉ GR MD, Ot Z79.01 SUSTAINMENT LOGISTICS ANALYST (CURRENT) USE OF ANTICOAGULANT 09/24/2017 RENÉ GR [...] HEADACHE 10/07/2017 PATRIZIA TORRES MD, Ot Z79.01 SUSTAINMENT LOGISTICS ANALYST (CURRENT) USE OF ANTICOAGULANT 10/07/2017 PATRIZIA TORRES MD, Ot Z82.49 FAMILY HX OF ISCHEM HEART DIS AND OTH DI 10/07/2017 PATRIZIA TORRES MD, Ot Z90.49 ACQUIRED ABSENCE OF OTHER SPECIFIED PART 10/07/2017 MELISSA HONGPATRIZIA Sarah Ot Z96.653 PRESENCE OF ARTIFICIAL KNEE JOINT, [...] I48.0 PAROXYSMAL ATRIAL FIBRILLATION 11/04/2017 RENÉ GR MD Ot I48.92 UNSPECIFIED ATRIAL FLUTTER 11/06/2017 Heron SINGH MD Ot I10 ESSENTIAL (PRIMARY) HYPERTENSION 11/06/2017 Heron SINGH MD Ot I47.1 SUPRAVENTRICULAR TACHYCARDIA 11/06/2017 Heron SINGH MD Ot I48.0 PAROXYSMAL ATRIAL FIBRILLATION 11/06/2017 Heron SINGH MD Ot Z79.899 OTHER [facility] (CURRENT) DRUG THERAPY 11/06/2017 Heron SINGH MD [...] MD Ot I48.0 PAROXYSMAL ATRIAL FIBRILLATION 11/09/2017 FRANCISCO HONG, Heron GOYAL Ot Z79.899 OTHER [facility] (CURRENT) DRUG THERAPY 11/09/2017 Heron SINGH MD Ot Z88.0 ALLERGY STATUS TO PENICILLIN 11/09/2017 FRANCISCO HONG, Heron GOYAL Ot Z88.1 ALLERGY STATUS TO OTHER ANTIBIOTIC AGENT 11/09/2017 Heron SINGH MD, Ot Z88.2 ALLERGY STATUS TO SULFONAMIDES STATUS 11/09/2017 Heron SINGH MD Ot Z96.651 PRESENCE OF RIGHT ARTIFICIAL KNEE JOINT 11/09/2017 Heron SINGH MD Ot Z96.652 PRESENCE OF LEFT ARTIFICIAL KNEE JOINT 11/18/2017 ALTON RICHARDS MD Ot F32.9 MAJOR DEPRESSIVE DISORDER, SINGLE EPISOD 11/18/2017 ALTON RICHARDS MD, Ot F41.9 ANXIETY DISORDER, UNSPECIFIED 11/18/2017 ALTON RICHARDS MD Ot G44.209 TENSION-TYPE HEADACHE, UNSPECIFIED, NOT 11/18/2017 ALTON RICHARDS MD Ot I10 ESSENTIAL (PRIMARY) HYPERTENSION 11/18/2017 ALTON RICHARDS MD Ot I47.1 SUPRAVENTRICULAR TACHYCARDIA 11/18/2017 ALTON RICHARDS MD Ot I48.91 UNSPECIFIED ATRIAL FIBRILLATION 11/18/2017 ALTON RICHARDS MD Ot K21.9 GASTRO-ESOPHAGEAL REFLUX DISEASE WITHOUT 11/18/2017 ALTON RICHARDS MD Ot R51 HEADACHE 11/18/2017 ALTON RICHARDS MD Ot Z79.01 MCFP (CURRENT) USE OF ANTICOAGULANT 11/18/2017 ALTON RICHADRS MD Ot Z82.49 FAMILY HX OF ISCHEM HEART DIS AND OTH DI 11/18/2017 ALTON RICHARDS MD Ot Z90.49 ACQUIRED ABSENCE OF OTHER SPECIFIED PART 11/18/2017 ALTON RICHARDS MD Ot Z96.653 PRESENCE OF ARTIFICIAL KNEE JOINT, BILAT 11/24/2017 RENÉ GR MD Ot I10 ESSENTIAL (PRIMARY) HYPERTENSION 11/24/2017 RENÉ GR MD Ot I48.0 PAROXYSMAL ATRIAL FIBRILLATION 11/24/2017 RENÉ GR MD Ot R00.0 TACHYCARDIA, UNSPECIFIED 11/24/2017 RENÉ GR MD Ot R00.2 PALPITATIONS 11/24/2017 RENÉ GR MD, Ot Z79.899 OTHER [facility] (CURRENT) DRUG THERAPY 11/27/2017 RENÉ GR MD, Ot I10 ESSENTIAL (PRIMARY) HYPERTENSION 11/27/2017 RENÉ GR MD, Ot I48.0 PAROXYSMAL ATRIAL FIBRILLATION 11/27/2017 RENÉ GR MD, Ot R00.0 TACHYCARDIA, UNSPECIFIED 11/27/2017 RENÉ GR MD Ot R00.2 PALPITATIONS 11/27/2017 RENÉ GR MD, Ot Z79.899 OTHER [facility] (CURRENT) DRUG THERAPY Procedures Code Description Performed By Performed On 47.01 LAPAROSCOP APPENDECTOMY 01/29/2013 [id number] MU-ISM OF CARDIAC RHYTHM, SINGLE 09/23/2017 Results Test [...] 03/07/16 08:39 ACT PLUS (POC) 213 sec [place] <160 ACT PLUS (POC) - 03/07/16 08:57 ACT PLUS (POC) 257 sec [place] <160 ACT PLUS (POC) - 03/07/16 09:11 ACT PLUS (POC) 386 sec [place] <160 ACT PLUS (POC) - 03/07/16 09:30 ACT PLUS (POC) 302 sec [place] <160 ACT PLUS (POC) - 03/07/16 09:50 ACT PLUS (POC) 419 sec [place] <160 ACT PLUS (POC) - 03/07/16 10:13 ACT PLUS (POC) 441 sec [place] <160 ACT PLUS (POC) - 03/07/16 11:41 ACT PLUS (POC) 424 sec [place] <160 ACT PLUS (POC) - 03/07/16 11:56 ACT PLUS (POC) 153 sec [place] <160 METABOLIC PANEL, [facility] - 03/08/16 05:27 POTASSIUM 2.7 mmol/L [...] 05:27 MAGNESIUM 1.6 mg/dL 1.8-2.4 METABOLIC PANEL, [facility] - 03/08/16 09:33 POTASSIUM 2.8 mmol/L [...] urinalysis with reflex to culture YES NRG Bacterial urine culture - 11/21/17 09:24 Bacterial urine culture [id number] NRG COLONY COUNT <10,000 NRG PT panel in platelet poor plasma [...] platelet mean volume measurement 10.2 [foz_us] 7.4-10.4 Methicillin resistant Staphylococcus aureus (MRSA) screening culture - 09:44 Methicillin resistant Staphylococcus aureus (MRSA) screening culture NEG NRG Encounters ACCT No. Visit Date/Time Discharge Status Pt. Type Provider Facility Loc./Unit Complaint [id number] 01/27/2012 16:07:00 01/27/2012 23:59:59 CLS Outpatient HUMAIRA ENCISO APRN [id number] 06/17/2014 14:00:00 06/17/2014 23:00:00 DIS Outpatient [id number] 04/25/2014 11:17:00 04/25/2014 23:59:59 CLS Outpatient [id number] 01/20/2014 13:50:00 01/20/2014 15:00:00 DIS Outpatient [id number] 01/10/2014 15:09:00 01/10/2014 23:59:59 CLS Outpatient [id number] 12/05/2013 19:15:00 12/05/2013 23:59:59 CLS Outpatient [id number] 12/05/2013 19:30:00 12/05/2013 23:00:00 DIS Emergency [id number] 11/15/2013 15:21:00 11/15/2013 23:59:59 CLS Outpatient [id number] 03/07/2016 05:32:00 03/08/2016 11:59:00 DIS Outpatient Leticia HONG, [facility] E.EPO [id number] 11/21/2017 09:04:00 11/21/2017 23:59:59 CLS Outpatient MAILE HONG, RENÉ Selby [facility] CATH A FLUTTER, HTN,HLP [id number] 11/14/2017 11:19:00 11/14/2017 13:35:00 DIS Outpatient ALTON RICHARDS MD [facility] ER RODRIGUEZ/HEART RACING- REFERRED BY DR GR [id number] 11/03/2017 11:23:00 11/03/2017 23:59:59 CLS Outpatient Heron SINGH MD [facility] CATH ATRIAL TACHYCARDIA [id number] 10/13/2017 10:33:00 10/13/2017 23:59:59 CLS Outpatient RENÉ GR MD [facility] CARD I48.0 PAROXYSMAL ARTRIAL FIBRILLATION [id number] 10/07/2017 11:38:00 10/07/2017 23:59:59 CLS Outpatient VALENCIA WILSON DO [facility] CARD HYPERTHYROID [id number] 10/07/2017 08:24:00 10/07/2017 11:25:00 DIS Emergency MELISSA HONG, PATRIZIA Smith [facility] ER HEADACHE SORE THROAT NAUSEA NECK PAIN [id number] 09/23/2017 08:11:00 09/24/2017 12:10:00 DIS Inpatient RENÉ GR MD [facility] ICU AFIB W/ RVR [id number] 08/14/2017 14:07:00 08/14/2017 23:59:59 CLS Outpatient VALENCIA WILOSN DO [facility] RAD PULMONARY NODULE [id number] 06/04/2017 21:38:00 06/04/2017 23:13:00 DIS Emergency ALTON RICHARDS MD [facility] ER HIGH BLOOD PRESSURE [id number] 03/27/2017 09:33:00 03/27/2017 23:59:59 CLS Outpatient VALENCIA WILSON DO [facility] RAD LOSS OF HEIGHT, MENOPAUSE [id number] 11/09/2016 18:28:00 11/09/2016 21:01:00 DIS Emergency SHANNON FOSTER [facility] ER HIVES [id number] 04/12/2016 08:12:00 04/12/2016 09:23:00 DIS Outpatient YUVAL ERIC MD [facility] CARD SPONDYLOSIS WO MLEOPATHY [id number] 02/21/2016 09:53:00 02/21/2016 16:55:00 DIS Inpatient RENÉ GR MD [facility] CSD AFIB [id number] 01/03/2016 07:47:00 01/03/2016 09:23:00 DIS Outpatient RENÉ GR MD [facility] CATH PALPITATIONS,DIZZINESS [id number] 12/01/2015 09:24:00 12/01/2015 10:27:00 DIS Outpatient YUVAL ERIC MD [facility] CARD 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 [id number] 11/24/2015 10:43:00 11/24/2015 12:07:00 DIS Outpatient YUVAL ERIC MD [facility] CARD 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 [id number] 10/29/2015 20:46:00 10/30/2015 17:15:00 DIS Outpatient RENÉ GR MD [facility] CATH CHEST PAIN [id number] 09/20/2015 12:16:00 09/20/2015 23:59:59 CLS Outpatient HANNAH PRADHAN MD [facility] RAD RADICULOPATHY [id number] 02/16/2013 09:54:00 Document Registration [id number] 02/11/2013 15:47:00 Document Registration [id number] 01/29/2013 17:51:00 Document Registration [id number] 11/27/2010 09:48:00 Document Registration
[2017-12-02] MEDS ORDERED: NS IV 1000 ML 1,000 ML ONE (14:17)
[2017-12-02] MEDS ORDERED: ADENOSINE 6 MG/2 ML (ADENOCARD) VIAL IV ONE (14:17)
--- NOTE | 2017-12-02 14:29 | ED Syncope ---
General Stated Complaint: A-FIB,SYNCOPE THIS AM Source of Information: Patient, RN/MD (Dr. Price) Exam Limitations: No Limitations History of Present Illness Time Seen by Provider: 14:05 Initial Comments Patient resists ER by private conveyance with chief complaint that she was just at home prior to arrival and had a syncopal episode and woke up on the floor while she was in her living room after getting up from a seated position. Patient does have a history of atrial fibrillation and is on L acquits as well as metoprolol and diltiazem. She takes her medications and has not missed any doses recently. She's not had any recent fevers, chills, shortness of breath, chest pain, nausea, diarrhea. Allergies and Home Medications Allergies Coded Allergies: Sulfa (Sulfonamide Antibiotics) (Verified Allergy, Severe, HIVES, 11/14/17 ) amoxicillin (Verified Allergy, Unknown, hives, 11/09/16) clavulanic acid (Verified Allergy, Unknown, hives, 11/09/16) Home Medications Acetaminophen/Diphenhydramine 1 Each Tablet, 1 TAB PO HS, (Reported) Alprazolam 1 Mg Tablet, 1 MG PO BID, (Reported) Apixaban 5 Mg Tablet, 5 MG PO BID, (Reported) Buspirone HCl 10 Mg Tablet, 10 MG PO BID, (Reported) Diltiazem HCl 120 Mg Cap.er.24h, 120 MG PO DAILY PRN for SUPRAVENTRICULAR TACHYCARDIA, (Reported) may take when elevated heartbeat Dronedarone HCl 400 Mg Tablet, 400 MG PO BID, #60 Ref 3 Prescribed by: RENÉ PRICE on 09/24/17 0924 Enalapril Maleate 20 Mg Tablet, 20 MG PO DAILY, (Reported) Fenofibrate,Micronized 200 Mg Capsule, 200 MG PO DAILY, (Reported) Levocetirizine Dihydrochloride 5 Mg Tablet, 5 MG PO DAILY PRN for CONGESTION, ( Reported) Magnesium Oxide 400 Mg Tablet, 400 MG PO DAILY, (Reported) Metoprolol Succinate 50 Mg Tab.er.24h, 50 MG PO BID, (Reported) [place] 3 Polyunsat Fatty Acids 1,000 Mg Cap, 1,000 MG PO BID, (Reported) Omeprazole 40 Mg Capsule.dr, 40 MG PO DAILY, (Reported) Raloxifene HCl 60 Mg Tablet, 60 MG PO DAILY, (Reported) Sertraline HCl 50 Mg Tablet, 50 MG PO DAILY, (Reported) Tramadol HCl 50 Mg Tablet, 50 MG PO Q6H, #10 Prescribed by: PATRIZIA FOSTER on 10/07/17 1117 Constitutional: No chills, No diaphoresis, dizziness, No fever, malaise EENTM: No ear discharge, No hearing loss, No ear pain, No blurred vision, No double vision, No vision loss Respiratory: No cough, dyspnea on exertion, No short of breath Cardiovascular: see HPI, No chest pain, palpitations, syncope, No vascular heart diseas Gastrointestinal: No constipation, No diarrhea, No nausea, No vomiting Genitourinary: No discharge, No dysuria Skin: No pruritus, No rash Psychiatric/Neurological: Denies Headache, Denies Paresthesia Past Lskxjft-Dknamy-Hptkfm Hx Patient Social History Alcohol Use: Occasionally Uses Alcohol Beverage of Choice: Wine Recreational Drug Use: No Smoking Status: Never a Smoker Recent Hopitalizations: No Immunizations Up To Date Tetanus Booster (TDap): Unknown PED Vaccines UTD: No Date of Pneumonia Vaccine: Sep 22, 2015 Date of Influenza Vaccine: Sep 01, 2017 Seasonal Allergies Seasonal Allergies: No Surgeries History of Surgeries: Yes (BACK SURGERY 8 YEARS AGO, BILAT TKR) Surgeries: Appendectomy, Cardiac Respiratory History of Respiratory Disorde: No Cardiovascular History of Cardiac Disorders: Yes (IMPLANTED HEART MONITOR PLACED BEGINNING OF 2015) Cardiac Disorders: Atrial Fibrillation, Hypertension Neurological History of Neurological Disord: No Reproductive System Hx Reproductive Disorders: No Sexually Transmitted Disease: No Genitourinary History of Genitourinary Disor: No Gastrointestinal History of Gastrointestinal Di: No Gastrointestinal Disorders: Gastroesophageal Reflux Musculoskeletal History of Musculoskeletal Dis: Yes (BACK SURGERY 9 YEARS AGO-MILD PAIN-6 SCREWS AND 2 RODS) Musculoskeletal Disorders: Arthritis, Chronic Back Pain Endocrine History of Endocrine Disorders: No HEENT History of HEENT Disorders: No Cancer History of Cancer: No Psychosocial History of Psychiatric Problem: Yes Behavioral Health Disorders: Anxiety, Depression Integumentary History of Skin or Integumenta: No Blood Transfusions History of Blood Disorders: No Adverse Reaction to a Blood Tr: No Family Medical History Significant Family History: Heart Disease Family Medial History: Cardiovascular disease 19 FATHER (mi) Dementia 19 MOTHER Physical Exam Vital Signs Vital Sign - Last 12Hours 12/02/17 14:05 Temp 97.9 Pulse 130 Resp 18 B/P (MAP) 126/98 (107) Pulse Ox 97 Capillary Refill : General Appearance: No Apparent Distress, WD/WN HEENT: PERRL/EOMI, Normal ENT Inspection, Pharynx Normal Neck: Full Range of Motion, Normal Inspection, Non Tender, Supple Cardiovascular: Regular Rate, Rhythm, No Edema, JVD (1 cm above the manubrium) Respiratory: Chest Non Tender, Lungs Clear, Normal Breath Sounds, No Accessory Muscle Use Gastrointestinal: Normal Bowel Sounds, Non Tender, Soft Extremities: Normal Capillary Refill, Normal Inspection, Non Tender Neurologic/Psychiatric: Alert, Oriented x3, No Motor/Sensory Deficits Cranial Nerves: Normal Hearing, Normal Speech, PERRL Progress/Results/Core Measures Results/Orders Lab Results Laboratory Tests Test 12/02/17 14:15 Range/Units White Blood Count 6.4 4.3-11.0 10^3/uL Red Blood Count 4.39 4.35-5.85 10^6/uL Hemoglobin 12.7 11.5-16.0 G/DL Hematocrit 37 35-52 % Mean Corpuscular Volume 85 80-99 FL Mean Corpuscular Hemoglobin 29 25-34 PG Mean Corpuscular Hemoglobin Concent 34 32-36 G/DL Red Cell Distribution Width 14.9 H 10.0-14.5 % Platelet Count 402 H 130-400 10^3/uL Mean Platelet Volume 10.4 7.4-10.4 FL Neutrophils (%) (Auto) 63 42-75 % Lymphocytes (%) (Auto) 27 12-44 % Monocytes (%) (Auto) 8 0-12 % Eosinophils (%) (Auto) 2 0-10 % Basophils (%) (Auto) 1 0-10 % Neutrophils # (Auto) 4.0 1.8-7.8 X 10^3 Lymphocytes # (Auto) 1.7 1.0-4.0 X 10^3 Monocytes # (Auto) 0.5 0.0-1.0 X 10^3 Eosinophils # (Auto) 0.1 0.0-0.3 10^3/uL Basophils # (Auto) 0.1 0.0-0.1 10^3/uL Sodium Level 135 135-145 MMOL/L Potassium Level 3.8 3.6-5.0 MMOL/L Chloride Level 101 98-107 MMOL/L Carbon Dioxide Level 22 21-32 MMOL/L Anion Gap 12 5-14 MMOL/L Blood Urea Nitrogen 23 H 7-18 MG/DL Creatinine 1.13 0.60-1.30 MG/DL Estimat Glomerular Filtration Rate 47 BUN/Creatinine Ratio 20 Glucose Level 104 70-105 MG/DL Calcium Level 9.6 8.5-10.1 MG/DL Magnesium Level 1.8 1.8-2.4 MG/DL Total Bilirubin 0.4 0.1-1.0 MG/DL Aspartate Amino Transf (AST/SGOT) 22 5-34 U/L Alanine Aminotransferase (ALT/SGPT) 15 0-55 U/L Alkaline Phosphatase 51 40-136 U/L Troponin I < 0.30 <0.30 NG/ML Total Protein 7.8 6.4-8.2 GM/DL Albumin 4.2 3.2-4.5 GM/DL My Orders Orders - [facility] [place] Adenosine Injection (Adenocard Injection (12/02/17 14:17) Ns Iv 1000 Ml (Sodium Chloride 0.9%) (12/02/17 14:17) Troponin I (12/02/17 14:26) Chest 1 View, Ap/Pa Only (12/02/17 14:26) Ekg Tracing (12/02/17 14:26) Saline Lock/Iv-Start (12/02/17 14:26) Monitor-Rhythm Ecg Trace Only (12/02/17 14:26) Cbc With Automated Diff (12/02/17 14:26) Comprehensive Metabolic Panel (12/02/17 14:26) Magnesium (12/02/17 14:26) Ns (Ivpb) (Sodium C... W/Diltiazem Iv Fo (12/02/17 15:30) Diltiazem Injection (Cardizem Injection) (12/02/17 15:30) Medications Given in ED Current Medications Medications Dose Ordered Sig/Rachel Route Start Time Stop Time Status Last Admin Dose Admin Diltiazem HCl 10 mg ONCE ONCE IVP 12/02/17 15:30 12/02/17 15:31 DC 12/02/17 15:41 10 MG Sodium Chloride 1,000 ml @ [facility] ONCE .ROUTE 12/02/17 14:17 1/16/18 14:20 DC 12/02/17 14:20 1,000 MLS/HR Vital Signs/I&O Vital Sign - Last 12Hours 12/02/17 12/02/17 14:05 15:41 Temp 97.9 97.9 Pulse 130 116 Resp 18 18 B/P (MAP) 126/98 (107) 126/98 Pulse Ox 97 97 Progress Note : Time: 15:02 Progress Note Echocardiogram February [address] Price. Conclusion: Dilated left atrium with left atrial appendage smoke in the left atrial appendage. Low velocity with echogenic density with questionable thrombus. Left ventricular systolic dysfunction estimated EF of 35% Moderate mitral regurg and mild tricuspid regurgitation. Patient has been electro cardio conversion couple times in the past by Dr. Price at least once by . ECG Initial ECG Impression Date: Dec 02, 2017 Initial ECG Impression Time: 14:11 Initial ECG Rate: 123 Initial ECG Rhythm: A Fib/Flutter Initial ECG Intervals: QT (527) Initial ECG Impression: Atrial Fibrillation (atrial flutter) Initial ECG Comparisson: Unchanged Comment Atrial flutter with rapid response. No T-wave elevation or depression Diagnostic Imaging Diagonstic Imaging: Xray Plain Films/CT/US/NM/MRI: chest Reviewed: Reviewed by Me Consults Consults : Consulting Physician: RENÉ PRICE MD Consults Notes Discussed case EKG and findings. Patient is well-known to Dr. Price and he recommends that we consult , Cardiology/EP review the case. He does not recommend adenosine at this time. Departure Communication (Admissions) Time/Spoke to Admitting Phy: 15:[address] Braxton: Discussed case lab imaging and he will see the patient. Time/Spoke to Consulting Phy: 14:42 Communication/Consulting Dr. Harris: Discussed case and he will review the patient's history and see the patient and make some recommendations. He recommends medicine admit the patient. He would like to hold the diltiazem in the morning and go ahead and start her now on a Cardizem drip. Impression Impression: Primary Impression: Atrial flutter with rapid ventricular response Additional Impression: Syncope and collapse Disposition: 09 ADMITTED INPATIENT Condition: Stable Admissions Decision to Admit Reason: Admit from ER (General) Decision to Admit/Date: Dec 02, 2017 Time/Decision to Admit Time: 15:13 Departure-Patient Inst. Referrals: VALENCIA WILSON DO (PCP/Family) Primary Care Physician Copy Copies To 1: VALENCIA WILSON TITUS J Dec 02, 2017 14:29
[2017-12-02 14:35] LABS: BASOPHILS # (AUTO) 0.1 10^3/uL (0.0-0.1); BASOPHILS % (AUTO) 1 % (0-10); EOSINOPHILS # (AUTO) 0.1 10^3/uL (0.0-0.3); EOSINOPHILS % (AUTO) 2 % (0-10); HEMATOCRIT 37 % (35-52); HEMOGLOBIN 12.7 G/DL (11.5-16.0); LYMPHOCYTES # (AUTO) 1.7 X 10^3 (1.0-4.0); LYMPHOCYTES % (AUTO) 27 % (12-44); MEAN CORPUSCULAR HEMOGLOBIN 29 PG (25-34); MEAN CORPUSCULAR HGB CONC 34 G/DL (32-36); MEAN CORPUSCULAR VOLUME 85 FL (80-99); MEAN PLATELET VOLUME 10.4 FL (7.4-10.4); MONOCYTES # (AUTO) 0.5 X 10^3 (0.0-1.0); MONOCYTES % (AUTO) 8 % (0-12); NEUTROPHILS % (AUTO) 63 % (42-75); PLATELET COUNT 402 10^3/uL (130-400); RED BLOOD COUNT 4.39 10^6/uL (4.35-5.85); RED CELL DISTRIBUTION WIDTH 14.9 % (10.0-14.5); WHITE BLOOD COUNT 6.4 10^3/uL (4.3-11.0)
[2017-12-02 14:44] LABS: ALBUMIN 4.2 GM/DL (3.2-4.5); BILIRUBIN,TOTAL 0.4 MG/DL (0.1-1.0); CALCIUM 9.6 MG/DL (8.5-10.1); CREATININE SERUM 1.13 MG/DL (0.60-1.30); MAGNESIUM 1.8 MG/DL (1.8-2.4); POTASSIUM 3.8 MMOL/L (3.6-5.0); TOTAL PROTEIN 7.8 GM/DL (6.4-8.2)
[2017-12-02] MEDS ORDERED: DILTIAZEM IV FOR DRIP 125 MG in NS (IVPB) 100 ML IV SCH (15:30)
[2017-12-02] MEDS ORDERED: DILTIAZEM 25 MG/5 ML INJ (CARDIZEM) VIAL IVP ONE (15:30)
--- NOTE | 2017-12-02 15:33 | Diagnostic Imaging Report ---
INDICATION: Atrial fibrillation, syncope. COMPARISON: 11/21/2017 FINDINGS: There is enlargement of the cardiac silhouette, unchanged in magnitude and configuration. There is no vascular congestion. No edema, pneumonia, effusion or pneumothorax. IMPRESSION: No acute appearing abnormality. Dictated by: Dictated on workstation # [id number]
--- OUTSIDE RECORDS SUMMARY | 2017-12-02 15:46 | XMS REPORT | Continuity of Care Document ---
Author Author [employer] Organization [facility] Address Unknown Phone Unavailable Care Team Providers Care Superintendent Overhead Distribution Name Role Phone [employer] Unavailable Unavailable Problems Medications Allergies, Adverse Reactions, Alerts Immunizations Results Vital Signs Encounters Location Location Details Encounter Type Encounter Number Reason For Visit Attending Provider ADM Date DC Date Status Source OUTPATIENT [id number] BRODY RUSSELL 11/24/2017 11/24/2017 Active [facility] O Active [facility] Procedures Plan of Care Social History Assessment and Plan Family History Advance Directives Functional Status
--- OUTSIDE RECORDS SUMMARY | 2017-12-02 15:46 | XMS REPORT | Encounter Summary ---
Author Author [facility] Organization [facility] Address Unknown Phone Unavailable Care Team Providers Care Cellular Biologist Name Role Phone PCP Unavailable Encounter Details Date Type Department Care Team Description 11/27/2017 Procedure Pass [facility] [address] [place] [address] Social History Tobacco Use Types Packs/Day Years [...]
--- OUTSIDE RECORDS SUMMARY | 2017-12-02 15:46 | XMS REPORT | Encounter Summary ---
Author Author [facility] Organization [facility] Address Unknown Phone Unavailable Care Team Providers Care Suction Plate Carrier Cleaner Name Role Phone PCP Unavailable Encounter Details Date Type Department Care Team Description 11/27/2017 Procedure Pass [facility] Cardiology [address] [place] [address] Social History Tobacco Use Types Packs/Day Years [...]
--- OUTSIDE RECORDS SUMMARY | 2017-12-02 15:46 | XMS REPORT | Encounter Summary ---
Author Author [facility] Organization [facility] Address Unknown Phone Unavailable Care Team Providers Care Aircraft Landing Gear Inspector Name Role Phone PCP Unavailable Reason for Visit * Reason Comments Other Cancel ablation Encounter Details Date Type Department Care Team Description 12/02/2017 Telephone [facility] Cardiology Katharine Crum RN Other (Cancel ablation) [address] [facility] [address] [place] [address] Social History Tobacco Use Types Packs/Day Years Used Date Never Smoker Smokeless Tobacco: Never Used Alcohol Use Drinks/Week oz/Week Comments Yes 1 Glasses of 0.6 wine Sex Assigned at Date Recorded Not on file as of this encounter Miscellaneous Notes * Telephone Encounter - Katharine Crum RN - 12/02/2017 1:51 PM BUSINESS SOLUTIONS ANALYST Mary called us back. I was able to speak with her. She would like to cancel her ablation due to transportation. She will work on arranging transportation and let us know when she wants to reschedule. DIANE Hill * Telephone Encounter - Katharine Crum RN - 12/02/2017 12:12 PM BUSINESS SOLUTIONS ANALYST I called the patient back as requested to discuss the below. I had to leave a message for her to call us back. Notified DIANE Healy. DIANE Hill ----- Message from Daisy Osman sent at 12/02/2017 11:58 AM BUSINESS SOLUTIONS ANALYST ----- Regarding: MPE,Cancel ablation Patient states she is going to have to cancel her ablation. Home is the call back in this encounter Plan of Treatment Date Type Specialty Care Team Description 11/27/2017 Procedure Pass Cardiology 11/27/2017 Procedure Pass Cardiology as of this encounter Visit Diagnoses Not on filein this encounter
--- OUTSIDE RECORDS SUMMARY | 2017-12-02 15:46 | XMS REPORT | Clinical Summary ---
Author Author [facility] Organization [facility] Address Unknown Phone Unavailable Care Team Providers Care Tin Whiz Machine Operator Name Role Phone PCP Unavailable Source Comments Some departments are not documenting in the electronic medical record. If you do not see the information that you expected, contact Release of Information in the Health Information Management department at [phone] for further assistance in locating additional records.[facility] Allergies Active Allergy Reactions Severity Noted [...] (A- fib; Cardioverted 11/21/16; Ref by Dr. Priec) 11/24/2017 Hospital Cardiology Vicente Coulter MD Encounter [...] Taken Blood Pressure 140/90 11/24/2017 1:40 PM PUPIL PERSONNEL SERVICES DIRECTOR Pulse 60 11/24/2017 1:40 PM PUPIL PERSONNEL SERVICES DIRECTOR Temperature - - Respiratory Rate - - Oxygen Saturation - - Inhaled Oxygen - - Concentration Weight 72.1 kg (159 lb) 11/24/2017 1:40 PM PUPIL PERSONNEL SERVICES DIRECTOR Height 160 cm (5' 3") 11/24/2017 1:40 PM PUPIL PERSONNEL SERVICES DIRECTOR Body Mass Index 28.17 11/24/2017 1:40 PM PUPIL PERSONNEL SERVICES DIRECTOR Plan of Treatment Date Type Specialty Care [...]
--- OUTSIDE RECORDS SUMMARY | 2017-12-02 15:47 | XMS REPORT | Encounter Summary ---
Author Author [facility] Organization [facility] Address Unknown Phone Unavailable Care Team Providers Care Forms Analyst Name Role Phone PCP Unavailable Reason for Visit * Reason Comments Follow-up Phone Call attempted to return call, phone cut off Encounter Details Date Type Department Care Team Description 11/25/2017 Telephone [facility] Cardiology Alethea Rader RN Follow- up Phone Call [address] (attempted to return [address] call, phone cut off) [place], [place] [id number] Social History Tobacco Use Types Packs/Day Years Used Date Never Smoker Smokeless Tobacco: Never Used Alcohol Use Drinks/Week oz/Week Comments Yes 1 Glasses of 0.6 wine Sex Assigned at Date Recorded Not on file as of this encounter Miscellaneous Notes * Telephone Encounter - Alethea Rader RN - 11/25/2017 12:48 PM GENERAL EDUCATION PROFESSOR received message Mary called back however, no answer with return call * Telephone Encounter - Alethea Rader RN - 11/25/2017 12:48 PM GENERAL EDUCATION PROFESSOR Formatting of this note may be different from the original. [facility] Call patient Received: Today ARACELIS Rainey [...] like to do an overnight stay at [facility] due to long travel for son Mary will c/b and let us know * Telephone Encounter - Alethea Rader RN - 11/25/2017 9:11 AM GENERAL EDUCATION PROFESSOR ----- Message from Yesy Tovar LPN sent at 11/25/2017 9:04 AM GENERAL EDUCATION PROFESSOR ----- Regarding: MPE- 2 questions VM from [...]
--- OUTSIDE RECORDS SUMMARY | 2017-12-02 15:47 | XMS REPORT | Encounter Summary ---
Author Author [facility] Organization [facility] Address Unknown Phone Unavailable Care Team Providers Care Night Guard Name Role Phone PCP Unavailable Reason for Visit * Reason Comments Other cta requested Encounter Details Date Type Department Care Team Description 11/27/[address] [facility] Cardiology Gloria Verma RN Other ( cta requested) [address] [place] [address] Social History Tobacco Use Types Packs/Day Years Used Date Never Smoker Smokeless Tobacco: Never Used Alcohol Use Drinks/Week oz/Week Comments Yes 1 Glasses of 0.6 wine Sex Assigned at Date Recorded Not on file as of this encounter Miscellaneous Notes * Telephone Encounter - Gloria Verma RN - 11/27/2017 12:21 PM CHIEF OPERATOR SYNTHESIS ----- Message from Alethea Rader RN sent at 11/26/2017 3:32 PM CHIEF OPERATOR SYNTHESIS ----- Regarding: pre AF ablation ROSIO she [...]
--- OUTSIDE RECORDS SUMMARY | 2017-12-02 15:47 | XMS REPORT | Encounter Summary ---
Author Author [facility] Organization [facility] Address Unknown Phone Unavailable Care Team Providers Care Electronic Publications Specialist Name Role Phone PCP Unavailable Reason for Visit * Reason Comments New Patient A-fib; Cardioverted 11/21/16; Ref by Dr. Price Encounter Details Date Type Department Care Team Description 11/24/2017 Office Visit [facility] Cardiology Vicente Coulter MD New Patient (A-fib; [address] [place] [address] Cardioverted 11/21/16; Ref [address] [place] [address] Price) [place] [address] [place] [address] [phone] Social History Tobacco Use Types Packs/Day Years Used Date Never Smoker Smokeless Tobacco: Never Used Alcohol Use Drinks/Week oz/Week Comments Yes 1 Glasses of 0.6 wine Sex Assigned at Date Recorded Not on file as of this encounter Last Filed Vital Signs Vital Sign Reading Time Taken Blood Pressure 140/90 11/24/2017 1:40 PM MATERIAL DISPATCHER Pulse 60 11/24/2017 1:40 PM MATERIAL DISPATCHER Temperature - - Respiratory Rate - - Oxygen Saturation - - Inhaled Oxygen - - Concentration Weight 72.1 kg (159 lb) 11/24/2017 1:40 PM MATERIAL DISPATCHER Height 160 cm (5' 3") 11/24/2017 1:40 PM MATERIAL DISPATCHER Body Mass Index 28.17 11/24/2017 1:40 PM MATERIAL DISPATCHER in this encounter Instructions * Patient Instructions - Alethea Rader RN - 11/24/2017 2:00 PM MATERIAL DISPATCHER call regarding your decision regarding the ablation after you talk with Dr Santos In order to provide you the best care possible we ask that you follow up as below: For NON-URGENT questions please contact us through your mVisum account. For all medication refills please contact your pharmacy or send a request through mVisum. For all questions that may need to be addressed urgently please call the nursing triage line at [phone] Friday - Friday 8-5 only. Please leave a detailed message with your name, date of , and reason for your call. To schedule an appointment call [phone]. Please allow 10-15 business days for the results of any testing to be reviewed. Please call our office if you have not heard from a nurse within this time frame. in this encounter Progress Notes * Vicente Coulter MD - 11/24/2017 2:00 PM MATERIAL DISPATCHER Formatting of this note may be different from the original. Date of Service: 11/24/2017 Mary Roth is a 72 y.o. female. HPI I had the pleasure of seeing your patient Mary Roth in the [facility] as a part of the [facility] office today for initial Electrophysiolgy Consultation regarding her Paroxysmal Atrial Fibrillation. She is typically followed and was referred by my friend and colleague Dr. Price , her primary adjunct political science instructor, in [facility]. Ms. Roth is an exceptionally pleasant 72 [...] by duplex 05/2017Dr. Price. She has a [id number] score of 3: Female, HTN, and age [...] underwent AFIB Ablation by Dr. Kelly in [place], [place] -- Post AFIB Ablation--unclear what antiarrhythmic [...] her cardioversion for her persistent AFIB at [facility] in [facility] on 11/21/17 and has had no recurrent [...] to include, but not limited to: , [place], stroke, cardiac perforation, pulmonary vein stenosis, diaphragmatic [...] was done again by Dr. Kelly in [place] in February 2016 -- Obtain a ROSIO [...] as the inferior leads. No preexcitation noted. Project [employer] Reveal LinQ Implantable Looping Monitor Full device [...] In fact ultimately she underwent cardioversion [facility] on 11/21/17 and has had [...]
--- OUTSIDE RECORDS SUMMARY | 2017-12-02 15:47 | XMS REPORT | Encounter Summary ---
Author Author [facility] Organization [facility] Address Unknown Phone Unavailable Care Team Providers Care Nuclear Criticality Safety Engineer Name Role Phone PCP Unavailable Reason for Visit * Reason Comments Appointment botox Encounter Details Date Type Department Care Team Description 10/28/2017 Telephone [facility] Silverio Walker MD Appointment (botox) Physicians - ENT [address]RD FLOOR POD [address] [place] [address] [place] [address] OFFICE BLDG [phone] [place] [address] Social History Tobacco Use Types Packs/Day Years Used Date Never Smoker Smokeless Tobacco: Never Used Alcohol Use Drinks/Week oz/Week Comments Yes 1 Glasses of 0.6 wine Sex Assigned at Date Recorded Not on file as of this encounter Miscellaneous Notes * Telephone Encounter - Brielle Raya RN - 10/28/2017 9:22 AM MANAGER PHILOSOPHY Returned patient call. Patient called this morning [...]
--- OUTSIDE RECORDS SUMMARY | 2017-12-02 15:47 | XMS REPORT | Encounter Summary ---
Author Author [facility] Organization [facility] Address Unknown Phone Unavailable Care Team Providers Care Shrink Pit Supervisor Name Role Phone PCP Unavailable Reason for Visit * Reason Comments Appointment Request botox Encounter Details Date Type Department Care Team Description 10/07/2017 Telephone [facility] Silverio Walker MD Appointment Request Physicians - ENT [address] (botox) 3RD FLOOR POD [address] [place] [address] [place] [address] OFFICE BLDG [phone] [place] [address] Social History Tobacco Use Types Packs/Day Years Used Date Never Smoker Smokeless Tobacco: Never Used Alcohol Use Drinks/Week oz/Week Comments Yes 1 Glasses of 0.6 wine Sex Assigned at Date Recorded Not on file as of this encounter Miscellaneous Notes * Telephone Encounter - Brielle Raya RN - 10/07/2017 8:22 AM WELT ROUGHER Returned patient call. She requested an appointment [...]
--- OUTSIDE RECORDS SUMMARY | 2017-12-02 15:47 | XMS REPORT | Encounter Summary ---
Author Author [facility] Organization [facility] Address Unknown Phone Unavailable Care Team Providers Care Film Processing Supervisor Name Role Phone PCP Unavailable Encounter Details Date Type Department Care Team Description 11/24/2017 [facility] Cardiology Vicente Coulter MD Encounter [address] [place] [address] [place] [address] [place] [address] [place] [address] [phone] Social History Tobacco Use Types Packs/Day Years [...] ILR Routine Paroxysmal atrial 11/24/2017 1:14 PM DISEASE INTERVENTION SPECIALIST fibrillation (HCC) as of this encounter Visit Diagnoses Diagnosis Paroxysmal atrial fibrillation (HCC) Atrial fibrillation in this encounter
--- OUTSIDE RECORDS SUMMARY | 2017-12-02 15:47 | XMS REPORT | Encounter Summary ---
Author Author [facility] Organization [facility] Address Unknown Phone Unavailable Care Team Providers Care Room Maid Name Role Phone PCP Unavailable Reason for Visit * Reason Comments Appointment botox Encounter Details Date Type Department Care Team Description 10/28/2017 Telephone [facility] Silverio Walker MD Appointment (botox) Physicians - ENT [address]RD FLOOR POD [address] [place] [address] [place] [address] OFFICE BLDG [phone] [place] [address] Social History Tobacco Use Types Packs/Day Years Used Date Never Smoker Smokeless Tobacco: Never Used Alcohol Use Drinks/Week oz/Week Comments Yes 1 Glasses of 0.6 wine Sex Assigned at Date Recorded Not on file as of this encounter Miscellaneous Notes * Telephone Encounter - Brielle Raya RN - 10/28/2017 10:51 AM BACK STRIP MACHINE OPERATOR Returned patient call; she wants to [...]
--- OUTSIDE RECORDS SUMMARY | 2017-12-02 15:47 | XMS REPORT | Encounter Summary ---
Author Author [facility] Organization [facility] Address Unknown Phone Unavailable Care Team Providers Care Bargeman Name Role Phone PCP Unavailable Reason for Visit * Reason Comments Appointment pre LAAA testing and procedure dates Encounter Details Date Type Department Care Team Description 11/26/2017 Telephone [facility] Cardiology Alethea Rader, RN Appointment (pre LAAA [address] testing and procedure [address] dates) [place] [address] Social History Tobacco Use Types Packs/Day Years Used Date Never Smoker Smokeless Tobacco: Never Used Alcohol Use Drinks/Week oz/Week Comments Yes 1 Glasses of 0.6 wine Sex Assigned at Date Recorded Not on file as of this encounter Miscellaneous Notes * Telephone Encounter - Alethea Rader, RN - 11/26/2017 3:28 PM FIELD IDENTIFICATION SPECIALIST talked with Mrs Roth, she would [...]
--- OUTSIDE RECORDS SUMMARY | 2017-12-02 15:47 | XMS REPORT | Encounter Summary ---
Author Author [facility] Organization [facility] Address Unknown Phone Unavailable Care Team Providers Care Wrecker Operator Name Role Phone PCP Unavailable Reason for Visit * Reason Comments Appointment Encounter Details Date Type Department Care Team Description 10/27/2017 Telephone [facility] Kayla Baldwin MD Appointment Physicians - ENT [address]RD FLOOR [address]OD [address] [place] [address] OFFICE BLDG [phone] [place] [address] Social History Tobacco Use Types Packs/Day Years Used Date Never Smoker Smokeless Tobacco: Never Used Alcohol Use Drinks/Week oz/Week Comments Yes 1 Glasses of 0.6 wine Sex Assigned at Date Recorded Not on file as of this encounter Miscellaneous Notes * Telephone Encounter - Carmel Monzon LPN - 10/29/2017 8:30 AM SAND MIXER MACHINE Ms. Roth calling to cancel her appointment scheduled for Friday12/05/16 due to transportation issues. She cannot find a ride for any Friday appointments. Pt appears to have appt with Dr. Walker in January. Ms. Roth denies further concerns at this time. * Telephone Encounter - Carmel Monzon LPN - 10/27/2017 4:53 PM SAND MIXER MACHINE Ms. Roth calling to request appointment for [...]
--- OUTSIDE RECORDS SUMMARY | 2017-12-02 15:47 | XMS REPORT | Encounter Summary ---
Author Author [facility] Organization [facility] Address Unknown Phone Unavailable Care Team Providers Care Merchandise Complaint Adjuster Name Role Phone PCP Unavailable Encounter Details Date Type Department Care Team Description 11/28/2017 Orders Only [facility] Elina Grijalva RN Atrial fibrillation, [address] unspecified type (HCC) [place] [address] (Primary Dx) [phone] Social History Tobacco Use Types Packs/Day Years [...]
--- OUTSIDE RECORDS SUMMARY | 2017-12-02 15:47 | XMS REPORT | Encounter Summary ---
Author Author [facility] Organization [facility] Address Unknown Phone Unavailable Care Team Providers Care Plate Glass Installer Helper Name Role Phone PCP Unavailable Reason for Referral * CTA Procedure Status Reason Specialty Diagnoses / Referred By Referred To Procedures Contact Contact No Auth Needed Cardiology Diagnoses Vicente Coulter Bhg Card Nuclear Atrial [address] fibrillation, [address] [place] ([facility] [place] [address] [address] [address] [place], [place] Phone: [place] [address] [address] CARDIAC Phone: STRUCTURE WO/W [phone] CONT * CTA Procedure Status Reason Specialty Diagnoses / Referred By Referred To Procedures Contact Contact New Request Cardiology Diagnoses Vicente Coulter Bhg Card Nuclear Atrial [address] fibrillation, [address] [place], [place] ([facility] [place] [address] [address] [address] [place], [place] Phone: [place] [address] Phone: CARDIAC [phone] Encounter Details Date Type Department Care Team Description 11/27/2017 Orders Only [facility] Gloria Verma, DIANE Atrial fibrillation, [address] unspecified type ([facility]) [place] [address] Social History Tobacco Use Types Packs/Day Years [...]
--- OUTSIDE RECORDS SUMMARY | 2017-12-02 15:47 | XMS REPORT | Encounter Summary ---
Author Author [facility] Organization [facility] Address Unknown Phone Unavailable Care Team Providers Care Telecommunications Line Installer Name Role Phone PCP Unavailable Encounter Details Date Type Department Care Team Description 11/21/[address] [facility] Cardiology Alethea Rader, RN [address] [place] [address] Social History Tobacco Use Types Packs/Day Years Used Date Never Smoker Smokeless Tobacco: Never Used Alcohol Use Drinks/Week oz/Week Comments Yes 1 Glasses of 0.6 wine Sex Assigned at Date Recorded Not on file as of this encounter Miscellaneous Notes * Telephone Encounter - Alethea Rader RN - 11/25/2017 10:43 AM DIRECT MARKETING SPECIALIST Formatting of this note may be different [...] Alethea Rader RN - 11/21/2017 10:40 AM DIRECT MARKETING SPECIALIST offered friday, november 24, 1:30 to interrogate linq and 2:[address] Coulter. Mrs Roth having cardioversion today by Dr Santos his office will fax records shelby to the EP right fax she does have an ilr so will schedule her before her appt * Telephone Encounter - Alethea Rader, RN - 11/21/2017 10:37 AM DIRECT MARKETING SPECIALIST ----- Message from Yesy Tovar LPN sent at 11/21/2017 10:22 AM DIRECT MARKETING SPECIALIST ----- Regarding: MPE- appointmet SHELBY VM on triage line from Stephany with Dr. Beasley office # [phone]. Said [address] Beasley talked to MPE and patient needs seen SHELBY. Call Stephany with date and time of appointment and she will call the patient. in this encounter Plan of Treatment Date Type Specialty Care Team Description 11/27/2017 Procedure Pass Cardiology 11/27/2017 Procedure Pass Cardiology Name Priority Associated Diagnoses Date/Time DEVICE EVALUATION - ILR Routine Paroxysmal atrial 11/24/2017 1:14 PM DIRECT MARKETING SPECIALIST fibrillation (HCC) as of this encounter Visit Diagnoses Diagnosis Paroxysmal atrial fibrillation (HCC) - Primary Atrial fibrillation in this encounter
--- OUTSIDE RECORDS SUMMARY | 2017-12-02 15:50 | XMS REPORT | Continuity of Care Document ---
Author Author [facility] Address Unknown Phone Unavailable Allergies Active Description Code Type Severity Reaction Onset Reported/Identified Relationship to Patient Clinical Status Yes No Known Drug Allergies [id number] Drug Allergy Unknown N/A 08/02/2008 Yes No Known Allergies No Known Allergies Drug Allergy Unknown N/A 2015 Yes amoxicillin [id number] Drug Allergy Unknown hives 11/09/2016 Yes clavulanic acid [id number] Drug Allergy Unknown hives 11/09/2016 Yes Sulfa (Sulfonamide Antibiotics) [id number] Drug Allergy Severe HIVES 2016 Medications There [...] POSTMENOPAUSAL ATROPHIC 07/30/2010 HUMAIRA ENCISO APRN V72.31 COUNCILLOR ABORIGINAL LAND COUNCIL EXAM, ROUTINE 09/05/2010 HUMAIRA ENCISO APRN 627.1 POSTMENOPAUSAL BLEEDING 09/05/2010 HUMAIRA ENCISO APRN 795.01 Cerv Pap Smear (+) Atyp Squamous Cells Undetermined Signif 10/17/2010 HUMAIRA ENCISO APRN V58.69 LONG-TERM (CURRENT) USE OF OTHER MEDICATIONS 11/27/2010 Ot 784.40 11/27/2010 Ot V57.3 01/22/2011 HUMAIRA ENCISO APRN 729.1 MYALGIA AND MYOSITIS UNSPECIFIED 03/14/2011 ENCISO BIOMEDICAL ENGINEERING DIRECTOR, HUMAIRA R 272.4 OTHER AND UNSPECIFIED HYPERLIPIDEMIA [...] MD Ot I25.10 ATHSCL HEART DISEASE OF [place] CORONARY 10/30/2015 RENÉ GR MD Ot K21.9 GASTRO-ESOPHAGEAL REFLUX DISEASE WITHOUT 10/30/2015 RENÉ GR MD Ot R00.2 PALPITATIONS 10/30/2015 RENÉ GR MD Ot R07.89 OTHER CHEST PAIN 10/30/2015 RENÉ GR MD Ot Z79.899 OTHER TECHNICAL WRITER AND EDITOR (CURRENT) DRUG THERAPY 11/24/2015 YUVAL ERIC MD Ot M47.816 SPONDYLOSIS W/O MYELOPATHY OR RADICULOPA 11/24/2015 YUVAL ERIC MD Ot M53.3 SACROCOCCYGEAL DISORDERS, NOT ELSEWHERE 11/24/2015 YUVAL ERIC MD Ot 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 SYNDROME, NOT ELSEWHERE 11/24/2015 YUVAL ERIC MD Ot Z79.899 OTHER TECHNICAL WRITER AND EDITOR (CURRENT) DRUG THERAPY 12/01/2015 YUVAL ERIC MD Ot M47.816 SPONDYLOSIS W/O MYELOPATHY OR RADICULOPA 12/01/2015 YUVAL ERIC MD, Ot M53.3 SACROCOCCYGEAL DISORDERS, NOT ELSEWHERE 12/01/2015 YUVAL ERIC MD, Ot 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 SYNDROME, NOT ELSEWHERE 12/01/2015 YUVAL ERIC MD, Ot Z79.899 OTHER TECHNICAL WRITER AND EDITOR (CURRENT) DRUG THERAPY 01/03/2016 RENÉ GR MD Ot E78.5 HYPERLIPIDEMIA, UNSPECIFIED 01/03/2016 RENÉ GR MD Ot I10 ESSENTIAL (PRIMARY) HYPERTENSION 01/03/2016 RENÉ GR MD Ot R00.2 PALPITATIONS 01/03/2016 RENÉ GR MD Ot R55 SYNCOPE AND COLLAPSE 01/03/2016 RENÉ GR MD Ot Z79.899 OTHER SNF (CURRENT) DRUG THERAPY 02/21/2016 RENÉ GR MD Ot E78.5 HYPERLIPIDEMIA, UNSPECIFIED 02/21/2016 RENÉ GR MD Ot F41.9 ANXIETY DISORDER, UNSPECIFIED 02/21/2016 RENÉ GR MD Ot I10 ESSENTIAL (PRIMARY) HYPERTENSION 02/21/2016 RENÉ GR MD Ot I25.10 ATHSCL HEART DISEASE OF [place] CORONARY 02/21/2016 RENÉ GR MD Ot I42.9 [...] 04/12/2016 YUVAL ERIC MD, Ot Z79.899 OTHER SNF (CURRENT) DRUG THERAPY 04/24/2016 YUVAL ERIC MD, Ot M47.816 SPONDYLOSIS W/O MYELOPATHY OR RADICULOPA 04/24/2016 YUVAL ERIC MD, Ot M51.16 INTERVERTEBRAL DISC DISORDERS W RADICULO 04/24/2016 YUVAL ERIC MD, Ot M53.3 SACROCOCCYGEAL DISORDERS, NOT ELSEWHERE 04/24/2016 YUVAL ERIC MD, Ot M70.62 TROCHANTERIC BURSITIS, LEFT HIP 04/24/2016 YUVAL ERIC MD, Ot 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 SYNDROME, NOT ELSEWHERE 04/24/2016 YUVAL ERIC MD, Ot Z79.899 OTHER TECHNICAL WRITER AND EDITOR (CURRENT) DRUG THERAPY 11/09/2016 SHANNON FOSTER Ot [...] MD Ot I25.10 ATHSCL HEART DISEASE OF [place] CORONARY 09/24/2017 RENÉ GR MD Ot I48.0 [...] IMMUNIZATION 09/24/2017 RENÉ GR MD, Ot Z79.01 TECHNICAL WRITER AND EDITOR (CURRENT) USE OF ANTICOAGULANT 09/24/2017 RENÉ GR [...] TORRES MD, Ot R51 HEADACHE 10/07/2017 PATRIZIA TRORES MD, Ot Z79.01 TECHNICAL WRITER AND EDITOR (CURRENT) USE OF ANTICOAGULANT 10/07/2017 PATRIZIA TORRES [...] 11/06/2017 Heron SINGH MD Ot Z79.899 OTHER SNF (CURRENT) DRUG THERAPY 11/06/2017 Heron SINGH MD [...] FRANCISCO HONG, Heron GOYAL Ot Z79.899 OTHER SNF (CURRENT) DRUG THERAPY 11/09/2017 Heron SINGH MD [...] HEADACHE 11/18/2017 ALTON RICHARDS MD Ot Z79.01 SNF (CURRENT) USE OF ANTICOAGULANT 11/18/2017 ALTON RICHARDS MD Ot Z82.49 FAMILY HX OF ISCHEM [...] 11/24/2017 RENÉ GR MD, Ot Z79.899 OTHER SNF (CURRENT) DRUG THERAPY 11/27/2017 RENÉ GR MD, Ot I10 ESSENTIAL (PRIMARY) HYPERTENSION 11/27/2017 RENÉ GR MD, Ot I48.0 PAROXYSMAL ATRIAL FIBRILLATION 11/27/2017 RENÉ GR MD, Ot R00.0 TACHYCARDIA, UNSPECIFIED 11/27/2017 RENÉ GR MD Ot R00.2 PALPITATIONS 11/27/2017 RENÉ GR MD, Ot Z79.899 OTHER SNF (CURRENT) DRUG THERAPY Procedures Code Description Performed By Performed On 47.01 LAPAROSCOP APPENDECTOMY 01/29/2013 [id number] CHRISTIAN OF CARDIAC RHYTHM, SINGLE 09/23/2017 Results Test [...] 03/07/16 08:39 ACT PLUS (POC) 213 sec [place] <160 ACT PLUS (POC) - 03/07/16 08:57 ACT PLUS (POC) 257 sec [place] <160 ACT PLUS (POC) - 03/07/16 09:11 ACT PLUS (POC) 386 sec [place] <160 ACT PLUS (POC) - 03/07/16 09:30 ACT PLUS (POC) 302 sec [place] <160 ACT PLUS (POC) - 03/07/16 09:50 ACT PLUS (POC) 419 sec [place] <160 ACT PLUS (POC) - 03/07/16 10:13 ACT PLUS (POC) 441 sec [place] <160 ACT PLUS (POC) - 03/07/16 11:41 ACT PLUS (POC) 424 sec [place] <160 ACT PLUS (POC) - 03/07/16 11:56 ACT PLUS (POC) 153 sec [place] <160 METABOLIC PANEL, [facility] - 03/08/16 05:27 POTASSIUM 2.7 [...] 05:27 MAGNESIUM 1.6 mg/dL 1.8-2.4 METABOLIC PANEL, [facility] - 03/08/16 09:33 POTASSIUM 2.8 [...] culture - 11/21/17 09:24 Bacterial urine culture [id number] NRG COLONY COUNT <10,000 NRG PT panel [...] Staphylococcus aureus (MRSA) screening culture NEG NRG Complete blood count (CBC) with automated white blood cell (WBC) differential - 12/02/17 14:15 Blood leukocytes automated count (number/volume) 6.4 10*3/uL 4.3-11.0 Blood erythrocytes automated count (number/volume) 4.39 10*6/uL 4.35-5.85 Venous blood hemoglobin measurement (mass/volume) 12.7 g/dL 11.5-16.0 Blood hematocrit (volume fraction) 37 % 35-52 Automated erythrocyte mean corpuscular volume 85 [foz_us] 80-99 Automated erythrocyte mean corpuscular hemoglobin (mass per erythrocyte) 29 pg 25-34 Automated erythrocyte mean corpuscular hemoglobin concentration measurement ( mass/volume) 34 g/dL 32-36 Automated erythrocyte distribution width ratio 14.9 % 10.0-14.5 Automated blood platelet count (count/volume) 402 10*3/uL 130-400 Automated blood platelet mean volume measurement 10.4 [foz_us] 7.4-10.4 Automated blood neutrophils/100 leukocytes 63 % 42-75 Automated blood lymphocytes/100 leukocytes 27 % 12-44 Blood monocytes/100 leukocytes 8 % 0-12 Automated blood eosinophils/100 leukocytes 2 % 0-10 Automated blood basophils/100 leukocytes 1 % 0-10 Blood neutrophils automated count (number/volume) 4.0 10*3 1.8-7.8 Blood lymphocytes automated count (number/volume) 1.7 10*3 1.0-4.0 Blood monocytes automated count (number/volume) 0.5 10*3 0.0-1.0 Automated eosinophil count 0.1 10*3/uL 0.0-0.3 Automated blood basophil count (count/volume) 0.1 10*3/uL 0.0-0.1 Comprehensive metabolic panel - 12/02/17 14:15 Serum or plasma sodium measurement (moles/volume) 135 mmol/L 135-145 Serum or plasma potassium measurement (moles/volume) 3.8 mmol/L 3.6-5.0 Serum or plasma chloride measurement (moles/volume) 101 mmol/L 98-107 Carbon dioxide 22 mmol/L 21-32 Serum or plasma anion gap determination (moles/volume) 12 mmol/L 5-14 Serum or plasma urea nitrogen measurement (mass/volume) 23 mg/dL 7-18 Serum or plasma creatinine measurement (mass/volume) 1.13 mg/dL 0.60-1.30 Serum or plasma urea nitrogen/creatinine mass ratio 20 NRG Serum or plasma creatinine measurement with calculation of estimated glomerular filtration rate 47 NRG Serum or plasma glucose measurement (mass/volume) 104 mg/dL 70-105 Serum or plasma calcium measurement (mass/volume) 9.6 mg/dL 8.5-10.1 Serum or plasma total bilirubin measurement (mass/volume) 0.4 mg/dL 0.1-1.0 Serum or plasma alkaline phosphatase measurement (enzymatic activity/volume) 51 U/L 40-136 Serum or plasma aspartate aminotransferase measurement (enzymatic activity/ volume) 22 U/L 5-34 Serum or plasma alanine aminotransferase measurement (enzymatic activity/volume ) 15 U/L 0-55 Serum or plasma protein measurement (mass/volume) 7.8 g/dL 6.4-8.2 Serum or plasma albumin measurement (mass/volume) 4.2 g/dL 3.2-4.5 Magnesium - 12/02/17 14:15 Magnesium 1.8 mg/dL 1.8-2.4 Serum or plasma troponin i.cardiac measurement (mass/volume) - 12/02/17 14:15 Serum or plasma troponin i.cardiac measurement (mass/volume) < ng/ mL <0.30 Encounters ACCT No. Visit Date/Time Discharge Status Pt. Type Provider Facility Loc./Unit Complaint [id number] 01/27/2012 16:07:00 01/27/2012 23:59:59 [facility] Outpatient HUMAIRA ENCISO APRN [id number] 06/17/2014 14:00:00 06/17/2014 23:00:00 DIS Outpatient [id number] 04/25/2014 11:17:00 04/25/2014 23:59:59 [facility]LS Outpatient [id number] 01/20/2014 13:50:00 01/20/2014 15:00:00 DIS Outpatient [id number] 01/10/2014 15:09:00 01/10/2014 23:59:59 CLS Outpatient [id number] 12/05/2013 19:15:00 12/05/2013 23:59:59 CLS Outpatient [id number] 12/05/2013 19:30:00 12/05/2013 23:00:00 DIS Emergency [id number] 11/15/2013 15:21:00 11/15/2013 23:59:59 CLS Outpatient [id number] 03/07/2016 05:32:00 03/08/2016 11:59:00 DIS Outpatient Leticia HONG, [facility] E.EPO [id number] 11/21/2017 09:04:00 11/21/2017 23:59:59 CLS Outpatient RENÉ GR MD [facility] CATH A FLUTTER, HTN,HLP [id number] 11/14/2017 11:19:00 11/14/2017 13:35:00 DIS Outpatient ALTON RICHARDS MD [facility] ER RODRIGUEZ/HEART RACING- REFERRED BY DR GR [id number] 11/03/2017 11:23:00 11/03/2017 23:59:59 CLS Outpatient Heron SINGH MD [facility] CATH ATRIAL TACHYCARDIA [id number] 10/13/2017 10:33:00 10/13/2017 23:59:59 CLS Outpatient RENÉ GR MD [facility] CARD I48.0 PAROXYSMAL ARTRIAL FIBRILLATION [id number] 10/07/2017 11:38:00 10/07/2017 23:59:59 CLS Outpatient VALENCIA WILSON DO [facility] CARD HYPERTHYROID [id number] 10/07/2017 08:24:00 10/07/2017 11:25:00 DIS Emergency MELISSA HONG, PATRIZIA Smith [facility] ER HEADACHE SORE THROAT NAUSEA NECK PAIN [id number] 09/23/2017 08:11:00 09/24/2017 12:10:00 DIS Inpatient RENÉ GR MD [facility] ICU AFIB W/ RVR [id number] 08/14/2017 14:07:00 08/14/2017 23:59:59 CLS Outpatient VALENCIA WILSON DO [facility] RAD PULMONARY NODULE [id number] 06/04/2017 21:38:00 06/04/2017 23:13:00 DIS Emergency ALTON RICHARDS MD [facility] ER HIGH BLOOD PRESSURE [id number] 03/27/2017 09:33:00 03/27/2017 23:59:59 CLS Outpatient VALENCIA WILSON DO [facility] RAD LOSS OF HEIGHT, MENOPAUSE [id number] 11/09/2016 18:28:00 11/09/2016 21:01:00 DIS Emergency SHANNON FOSTER [facility] ER HIVES [id number] 04/12/2016 08:12:00 04/12/2016 09:23:00 DIS Outpatient YUVAL ERIC MD [facility] CARD SPONDYLOSIS WO MLEOPATHY [id number] 02/21/2016 09:53:00 02/21/2016 16:55:00 DIS Inpatient RENÉ GR MD [facility] CSD AFIB [id number] 01/03/2016 07:47:00 01/03/2016 09:23:00 DIS Outpatient RENÉ GR MD [facility] CATH PALPITATIONS,DIZZINESS [id number] 12/01/2015 09:24:00 12/01/2015 10:27:00 DIS Outpatient YUVAL ERIC MD [facility] CARD 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 [id number] 11/24/2015 10:43:00 11/24/2015 12:07:00 DIS Outpatient YUVAL ERIC MD [facility] CARD 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 [id number] 10/29/2015 20:46:00 10/30/2015 17:15:00 DIS Outpatient RENÉ GR MD [facility] CATH CHEST PAIN [id number] 09/20/2015 12:16:00 09/20/2015 23:59:59 CLS Outpatient IPSEN MD, HANNAH Selby [facility] RAD RADICULOPATHY [id number] 12/02/2017 14:36:00 Document Registration [id number] 02/16/2013 09:54:00 Document Registration [id number] 02/11/2013 15:47:00 Document Registration [id number] 01/29/2013 17:51:00 Document Registration [id number] 11/27/2010 09:48:00 Document Registration
[2017-12-02] MEDS ORDERED: ONDANSETRON 4 MG/2 ML (SDV) Z0FRAN IV PRN (16:45)
[2017-12-02] MEDS ORDERED: CATHETER FLUSH 10 ML SYR IV PRN (16:45)
[2017-12-02] MEDS: DILTIAZEM DRIP 125 MG/NS 100 ML TOTAL VOLUME 125 ML IV SCH ×2 (17:32)
[2017-12-02] MEDS: NS W/KCL 20 MEQ/L 1,000 ML IV SCH (17:35)
[2017-12-02] MEDS: APIXABAN 5 MG (ELIQUIS) TABLET PO SCH (20:09)
[2017-12-02] MEDS ORDERED: meTOproloL SUCCINATE 50 MG (TOPROL XL) TAB PO SCH (21:00)
[2017-12-03] VITALS (18 sets, daily range): BP systolic 88–146; BP diastolic 51–100
[2017-12-03] MEDS: NS W/KCL 20 MEQ/L 1,000 ML IV SCH ×3 (02:04→20:01)
[2017-12-03] MEDS: ACETAMINOPHEN 500 MG TAB (TYLENOL) PO PRN ×2 (03:46→20:00)
[2017-12-03] MEDS: meTOproloL SUCCINATE 50 MG (TOPROL XL) TAB PO SCH ×3 (04:43→21:17)
[2017-12-03 05:12] LABS: BASOPHILS % (AUTO) 0 % (0-10); EOSINOPHILS # (AUTO) 0.2 10^3/uL (0.0-0.3); EOSINOPHILS % (AUTO) 2 % (0-10); HEMATOCRIT 38 % (35-52); HEMOGLOBIN 12.9 G/DL (11.5-16.0); LYMPHOCYTES # (AUTO) 1.9 X 10^3 (1.0-4.0); LYMPHOCYTES % (AUTO) 26 % (12-44); MEAN CORPUSCULAR HEMOGLOBIN 29 PG (25-34); MEAN CORPUSCULAR HGB CONC 34 G/DL (32-36); MEAN CORPUSCULAR VOLUME 86 FL (80-99); MEAN PLATELET VOLUME 10.3 FL (7.4-10.4); MONOCYTES # (AUTO) 0.5 X 10^3 (0.0-1.0); MONOCYTES % (AUTO) 7 % (0-12); NEUTROPHILS # (AUTO) 4.7 X 10^3 (1.8-7.8); NEUTROPHILS % (AUTO) 64 % (42-75); PLATELET COUNT 338 10^3/uL (130-400); RED BLOOD COUNT 4.43 10^6/uL (4.35-5.85); RED CELL DISTRIBUTION WIDTH 15.2 % (10.0-14.5); WHITE BLOOD COUNT 7.4 10^3/uL (4.3-11.0)
[2017-12-03 05:30] LABS: BUN/CREATININE RATIO 21; CALCIUM 9.2 MG/DL (8.5-10.1); CARBON DIOXIDE 21 MMOL/L (21-32); CHLORIDE 109 MMOL/L (98-107); CREATININE SERUM 0.75 MG/DL (0.60-1.30); GFR ESTIMATED > 60; GLUCOSE 90 MG/DL (70-105); POTASSIUM 3.9 MMOL/L (3.6-5.0); SODIUM 140 MMOL/L (135-145)
[2017-12-03] MEDS ORDERED: ENOXAPARIN 80 MG/0.8 ML (LOVENOX) SYR SC ONE (07:30)
--- NOTE | 2017-12-03 07:31 | Consultation-Cardiology ---
HPI-Cardiology Cardiology Consultation Date of Consultation 12/03/17 Date of Admission Time Seen by Provider: 07:23 Indication: tachycardia HPI 72 years old lady with history of paroxysmal atrial fibrillation/flutter, had history of ablation, still having recurrent episodes of atrial fibrillation and flutter. Had electrical cardioversion recently. Was in her usual state of health until yesterday morning, patient did not feel well. She stood up and tried to walk felt very dizzy then fell to the floor. Twisted her right ankle. She called my office and came for EKG and noted to be tachycardic. She denied any chest pain or shortness of breath but feeling weak and tired. She was admitted and started on Cardizem drip. Blood pressure is borderline low at this time. Home Medications & Allergies Allergies: Coded Allergies: Sulfa (Sulfonamide Antibiotics) (Verified Allergy, Severe, HIVES, 11/14/17 ) amoxicillin (Verified Allergy, Unknown, hives, 11/09/16) clavulanic acid (Verified Allergy, Unknown, hives, 11/09/16) Home Medication List Reviewed: Yes [id number] Hx Patient Social History Employed/Student: retired Alcohol Use: Occasionally Uses Recreational Drug Use: No Smoking Status: Never a Smoker Recent Foreign Travel: No Recent Infectious Disease Expo: No Recent Hopitalizations: Yes (a-fib couple times since SEPTEMBER 02) Physical Abuse Screen: No Sexual Abuse: No Immunizations Up To Date Tetanus Booster (TDap): Unknown Date of Pneumonia Vaccine: Sep 22, 2015 Date of Influenza Vaccine: Sep 01, 2017 Past Medical History past medical history as discussed below Family Medical History Significant Family History: Heart Disease Family History: Cardiovascular disease 19 FATHER (mi) Dementia 19 MOTHER Constitutional: see HPI, malaise, weakness EENTM: see HPI, no symptoms reported Respiratory: see HPI, No cough, No dyspnea on exertion, No hemoptysis, No orthopnea, No phlegm, No short of breath, No stridor, No wheezing, No other Cardiovascular: see HPI, No chest pain, No edema, No Hx of Intervention, palpitations, syncope, No vascular heart diseas, No other Gastrointestinal: no symptoms reported, see HPI Genitourinary: no symptoms reported, see HPI Musculoskeletal: no symptoms reported, see HPI Skin: no symptoms reported, see HPI Psychiatric/Neurological: No Symptoms Reported, See HPI Reviewed Test Results Reviewed Test Results Lab Laboratory Tests Test 12/02/17 14:15 12/03/17 04:50 12/03/17 05:00 Range/Units White Blood Count 6.4 7.4 4.3-11.0 10^3/uL Red Blood Count 4.39 4.43 4.35-5.85 10^6/uL Hemoglobin 12.7 12.9 11.5-16.0 G/DL Hematocrit 37 38 35-52 % Mean Corpuscular Volume 85 86 80-99 FL Mean Corpuscular Hemoglobin 29 29 25-34 PG Mean Corpuscular Hemoglobin Concent 34 34 32-36 G/DL Red Cell Distribution Width 14.9 H 15.2 H 10.0-14.5 % Platelet Count 402 H 338 130-400 10^3/uL Mean Platelet Volume 10.4 10.3 7.4-10.4 FL Neutrophils (%) (Auto) 63 64 42-75 % Lymphocytes (%) (Auto) 27 26 12-44 % Monocytes (%) (Auto) 8 7 0-12 % Eosinophils (%) (Auto) 2 2 0-10 % Basophils (%) (Auto) 1 0 0-10 % Neutrophils # (Auto) 4.0 4.7 1.8-7.8 X 10^3 Lymphocytes # (Auto) 1.7 1.9 1.0-4.0 X 10^3 Monocytes # (Auto) 0.5 0.5 0.0-1.0 X 10^3 Eosinophils # (Auto) 0.1 0.2 0.0-0.3 10^3/uL Basophils # (Auto) 0.1 0.0 0.0-0.1 10^3/uL Sodium Level 135 140 135-145 MMOL/L Potassium Level 3.8 3.9 3.6-5.0 MMOL/L Chloride Level 101 109 H 98-107 MMOL/L Carbon Dioxide Level 22 21 21-32 MMOL/L Anion Gap 12 10 5-14 MMOL/L Blood Urea Nitrogen 23 H 16 7-18 MG/DL Creatinine 1.13 0.75 0.60-1.30 MG/DL Estimat Glomerular Filtration Rate 47 > 60 BUN/Creatinine Ratio 20 21 Glucose Level 104 90 70-105 MG/DL Calcium Level 9.6 9.2 8.5-10.1 MG/DL Magnesium Level 1.8 1.8-2.4 MG/DL Total Bilirubin 0.4 0.1-1.0 MG/DL Aspartate Amino Transf (AST/SGOT) 22 5-34 U/L Alanine Aminotransferase (ALT/SGPT) 15 0-55 U/L Alkaline Phosphatase 51 40-136 U/L Troponin I < 0.30 < 0.30 <0.30 NG/ML Total Protein 7.8 6.4-8.2 GM/DL Albumin 4.2 3.2-4.5 GM/DL Physical Exam Vital Signs Vital Sign - Last 12Hours 12/02/17 12/02/17 14:05 16:30 Temp 97.9 Pulse 130 Resp 18 B/P (MAP) 126/98 (107) Pulse Ox 97 O2 Delivery Room Air Capillary Refill : Less Than 3 Seconds General Appearance: WD/WN, Mild Distress Eyes: Bilateral Eye Normal Inspection, Bilateral Eye PERRL, Bilateral Eye EOMI HEENT: PERRL/EOMI, TMs Normal, Normal ENT Inspection, Pharynx Normal Neck: Full Range of Motion, Normal Inspection, Non Tender, Supple, Carotid Bruit Respiratory: Chest Non Tender, Lungs Clear, Normal Breath Sounds, No Accessory Muscle Use, No Respiratory Distress Cardiovascular: No Edema, No Gallop, No JVD, No Murmur, Normal Peripheral Pulses, Tachycardia Gastrointestinal: Normal Bowel Sounds, No Organomegaly, No Pulsatile Mass, Non Tender, Soft Back: Normal Inspection, No CVA Tenderness, No Vertebral Tenderness Extremity: Normal Inspection, Normal Range of Motion, No Calf Tenderness, Pedal Edema (right ankle edema) Neurologic/Psychiatric: Alert, Oriented x3, No Motor/Sensory Deficits, Normal Mood/Affect Skin: Normal Color, Warm/Dry Lymphatic: No Adenopathy A/P-Cardiology Admission Diagnosis Paroxysmal atrial fibrillation Syncope Nonsustained ventricular tachycardia Hypertension Assessment/Plan Paroxysmal atrial fibrillation/flutter-She was on flecainide where she was noted to have multiple episodes of wide-complex tachycardia, electrolytes were normal. Medication was discontinued. Patient underwent ablation with Dr. Kelly in [facility] February 2016. Underwent ROSIO with cardioversion October 2017, however, patient is back in atrial flutter today with heart rate 120s. She is currently maintained on Toprol-XL 50 g twice daily, Cardizem CD 120 mg daily. Was on Multaq, QTC is prolonged, I will stop Multaq and monitor QT interval, we'll consider sotalol. Discussed with Dr. Coultre regarding expediting her ablation. Syncope, PO2 be orthostatic due to tachycardia and hypotension, underlying malignant arrhythmia cannot be entirely excluded especially with a history of ventricular tachycardia, I will continue to monitor closely, planning to consider stress test in preparation for the ablation [id number] score is 3, yearly risk of stroke without oral anticoagulation is 3.2 percent which is considered high risk for stroke, maintained on Eliquis. Continue to monitor. Nonobstructive coronary artery disease per cardiac catheterization done on October 30, 2015, questionable T-wave inversion while she was in sinus rhythm, I will monitor EKG and will consider Lexiscan stress test after the cardioversion Nonsustained ventricular tachycardia in the past, multiple episodes of wide- complex tachycardia appeared to be nonsustained, patient was on flecainide at that time, cardiac catheterization was done in October 2015 and it was normal. continue to monitor Multiple episodes of wide-complex tachycardia, appeared to be nonsustained ventricular tachycardia, patient was on flecainide, cardiac catheterization was done in October 2015 and was normal, flecainide was discontinued. No further episodes since then. Hypertension, monitor blood pressure Hyperlipidemia, intolerant to statins secondary to history of elevated LFTs. Maintained on fenofibrate. Continue to monitor. History of intolerance to amiodarone secondary to elevated LFTs. Gastroesophageal reflux disease-continue current medication. Mild bilateral carotid stenosis, last ultrasound was done in May 2017, continue to monitor Hyperthyroidism- follows with kaiawhina. Clinical Quality Measures DVT/VTE Risk/Contraindication: Risk Factor Score Per Nursin RFS Level Per Nursing on Admit: 2=Moderate RENÉ GR MD Dec 03, 2017 07:31
--- NOTE | 2017-12-03 07:40 | Cardiac Procedure Note-CS/ASA ---
Pre-Procedure Note Pre-Op Procedure Note H&P Reviewed The H&P was reviewed, patient examined and no changes noted. Date H&P Reviewed: Dec 03, 2017 Time H&P Reviewed: 07:39 Conscious Sedation Pre-Proced Time Reviewed: 07:39 ASA Class: 3 Airway Mallampati Classification: ([place] appropriate class) I. II. III, IV Lungs Heart ASA score ASA 1: a normal healthy patient ASA 2: a patient with a mild systemic disease (mid diabetes, controlled hypertension, obesity x ASA 3: a patient with a severe systemic disease that limits activity (angina , COPD, prior Myocardial infarction) ASA 4: a patient with an incapacitating disease that is a constant threat to life (CHF, renal failure) ASA 5: a moribund patient not expected to survive 24 hrs. (ruptured aneurysm) ASA 6: a declared brain patient whose organs are being harvested. For emergent operations, add the letter E after the classification Grade 3 Sedation Plan: Analgesia, Amnesia, Plan communicated to team members, Discussed options with patient/fam, Discussed risks with patient/fam Note The patient is an appropriate candidate to undergo the planned procedure, sedation, and anesthesia. The patient immediately re-assessed prior to indication. RENÉ GR MD Dec 03, 2017 07:40
[2017-12-03] MEDS ORDERED: MIDAZOLAM 2 MG/2 ML (VERSED) VIAL ONE (07:47)
[2017-12-03] MEDS ORDERED: proPOfol 200 MG/20 ML (DIPRIVAN) VIAL IV ONE (07:47)
--- NOTE | 2017-12-03 08:03 | Cardiac Procedure Note ---
Cardiology Procedures Date of Procedure 12/03/17 BRIEF HISTORY: The patient is a 72 female with atrial flutter and rapid ventricular response. PROCEDURE NOTE: After explaining the procedure to the patient, all pros and cons were explained. The patient was sedated with assistance of anesthesia, DC cardioversion was delivered with 120 J and was successful in terminating atrial flutter. IN CONCLUSION: Successful DC cardioversion in terminating atrial flutter and maintaining sinus rhythm. RENÉ GR MD Dec 03, 2017 8:03 am
--- NOTE | 2017-12-03 08:08 | Progress Note-Standard ---
Standard Progress Note Progress Notes/Assess & Plan Date Seen by Provider: Dec 03, 2017 Time Seen by Provider: 07:55 Progress/Assessment & Plan consult for sedation. pt npo> midnight. 2mg versed. 65mg propofol given. pt tolerated procedure well. start time 0755 end time 0800 MARIA D REYES CRNA Dec 03, 2017 08:08
[2017-12-03] MEDS: DILTIAZEM 120 MG (CARDIZEM CD) CAP PO SCH (08:10)
--- NOTE | 2017-12-03 08:59 | Diagnostic Imaging Report ---
EXAMINATION: Right foot at 0743 AM INDICATION: Fell Three views were obtained. There is no fracture or dislocation or acute bony abnormality evident. There is considerable malalignment of the proximal phalanx of the second digit with the head of the second metatarsal. The proximal phalanx base lies at nearly a 9 degree angle to the head of the second metatarsal. 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 The soft tissues are unremarkable. IMPRESSION: There is no evidence for an acute bony abnormality. Dictated by: Dictated on workstation # [id number]
[2017-12-03] MEDS: APIXABAN 5 MG (ELIQUIS) TABLET PO SCH ×2 (10:37→21:17)
--- NOTE | 2017-12-03 12:15 | History & Physical-Hospitalist ---
HPI History of Present Illness: HPI/Chief Complaint CC: AF w/RVR w/syncope HPI: This is a 72-year-old white female clinic patient Dr. Dunn and Dr. Price with a past medical history of atrial fibrillation with rapid ventricular response managed by Dr. Coulter at [facility] who presents after a direct admission from Dr. Price's office when she presented after a syncopal episode at home found to have atrial fibrillation with rapid ventricular response and borderline orthostatic hypotension. She was stabilized had an uneventful cardioversion and in the midst of conferring with Dr. Price and cardiology at [facility] for medication selection. Her ejection fraction is 35 percent on last echocardiogram indicating ischemic cardiomyopathy chronically. Source: patient Exam Limitations: no limitations Date Seen 12/03/17 Time Seen by Provider: 11:00 Attending Physician Ede Braxton MD PCP Sung Dunn DO Referring Physician RENÉ PRICE MD Date of Admission Dec 02, 2017 at 15:41 Home Medications & Allergies Home Medications Reviewed patient Home Medication Reconciliation Form Allergies Allergies Coded Allergies Sulfa (Sulfonamide Antibiotics) (Verified Allergy, Severe, HIVES, 11/14/17) amoxicillin (Verified Allergy, Unknown, hives, 11/09/16) clavulanic acid (Verified Allergy, Unknown, hives, 11/09/16) Past [id number]-[id number] Hx Patient Social History Marrital Status: Employed/Student: retired Alcohol Use: Occasionally Uses Number of Drinks Today: HH Alcohol Beverage of Choice: Wine Recreational Drug Use: No Smoking Status: Never a Smoker Physical Abuse Screen: No Sexual Abuse: No Recent Foreign Travel: No Contact w/other who traveled: No Recent Hopitalizations: Yes (a-fib couple times since SEPTEMBER 02) Recent Infectious Disease Expo: No Immunizations Up To Date Tetanus Booster (TDap): Unknown Pediatric: No Date of Pneumonia Vaccine: Sep 22, 2015 Date of Influenza Vaccine: Sep 01, 2017 Seasonal Allergies Seasonal Allergies: No Surgeries Yes (BACK SURGERY 8 YEARS AGO, BILAT TKR) Appendectomy, Cardiac Respiratory No Cardiovascular Yes (IMPLANTED HEART MONITOR PLACED BEGINNING OF 2015) Atrial Fibrillation, Hypertension Neurological No Reproductive System Hx Reproductive Disorders: No Sexually Transmitted Disease: No Genitourinary No Gastrointestinal No Gastroesophageal Reflux Musculoskeletal Yes (BACK SURGERY 9 YEARS AGO-MILD PAIN-6 SCREWS AND 2 RODS) Arthritis, Chronic Back Pain Endocrine History of Endocrine Disorders: No HEENT History of HEENT Disorders: No Cancer No Psychosocial History of Psychiatric Problem: Yes Behavioral Health Disorders: Anxiety, Depression Integumentary History of Skin or Integumenta: No Blood Transfusions History of Blood Disorders: No Adverse Reaction to a Blood Tr: No Family Medical History Significant Family History: Heart Disease Family Hx: Cardiovascular disease 19 FATHER (mi) Dementia 19 MOTHER Review of Systems Constitutional: see HPI, dizziness, weakness EENTM: no symptoms reported Respiratory: no symptoms reported Cardiovascular: palpitations Gastrointestinal: nausea Genitourinary: no symptoms reported Musculoskeletal: joint pain Skin: no symptoms reported Psychiatric/Neurological: No Symptoms Reported All Other Systems Reviewed Negative Unless Noted: Yes Physical Exam Physical Exam Vital Signs Vital Sign - Last 12Hours 12/02/17 12/02/17 14:05 16:30 Temp 97.9 Pulse 130 Resp 18 B/P (MAP) 126/98 (107) Pulse Ox 97 O2 Delivery Room Air Capillary Refill : Less Than 3 Seconds General Appearance: No Apparent Distress, WD/WN Eyes: Bilateral Eye Normal Inspection, Bilateral Eye PERRL HEENT: PERRL/EOMI, Normal ENT Inspection, Pharynx Normal Neck: Full Range of Motion, Normal Inspection, Non Tender, Supple, Carotid Bruit Respiratory: Chest Non Tender, Lungs Clear, Normal Breath Sounds, No Accessory Muscle Use, No Respiratory Distress Cardiovascular: Regular Rate, Rhythm, No Edema, No Gallop, No JVD, No Murmur, Normal Peripheral Pulses Gastrointestinal: Normal Bowel Sounds, No Organomegaly, No Pulsatile Mass, Non Tender, Soft Back: Normal Inspection, No CVA Tenderness, No Vertebral Tenderness Extremity: Normal Capillary Refill, Normal Inspection, Normal Range of Motion, Non Tender, No Calf Tenderness, No Pedal Edema Neurologic/Psychiatric: Alert, Oriented x3, No Motor/Sensory Deficits, Normal Mood/Affect Skin: Normal Color, Warm/Dry Lymphatic: No Adenopathy Results Results/Procedures Lab Laboratory Tests 12/02/17 14:15 12/03/17 04:50 12/03/17 05:00 Assessment/Plan Admission Diagnosis Assessment: Atrial fibrillation with rapid ventricular response with history of episodes managed by Dr. Price and cardiology at [facility] Orthostatic hypotension with syncope Uneventful cardioversion by Dr. Price this morning History of anxiety Osteoporosis Assessment and Plan Plan: Monitor heart rhythm Appreciate Dr. Price consultation Fall risk Reconcile all home meds Clinical Quality Measures DVT/VTE Risk/Contraindication: Risk Factor Score Per Nursin RFS Level Per Nursing on Admit: 2=Moderate KIMBERLEY BAH DO Dec 03, 2017 12:15
[2017-12-03] MEDS ORDERED: ACET-2469 PO (12:35)
[2017-12-03] MEDS ORDERED: DRON400T2 PO (12:35)
[2017-12-03] MEDS ORDERED: VITA400C60 PO (12:35)
[2017-12-03] MEDS ORDERED: TRAM50TA2 PO (12:35)
[2017-12-03] MEDS ORDERED: FISH1CAP15 PO (12:35)
[2017-12-03] MEDS ORDERED: BIOT5000 PO (12:35)
[2017-12-03] MEDS ORDERED: LEVOCETIRIZINE 5 MG TAB (XYZAL) NON-FORMULARY PO PRN (12:45)
[2017-12-03] MEDS ORDERED: RX-TRAMADOL 50 MG (ULTRAM) TAB PPK#4 PO PRN (12:45)
[2017-12-03] MEDS ORDERED: LORATADINE (CLARITIN) 10 MG TAB PO PRN (13:15)
[2017-12-03] MEDS: DILTIAZEM DRIP 125 MG/NS 100 ML TOTAL VOLUME 125 ML IV SCH ×2 (16:45)
[2017-12-03] MEDS: ACETAMINOPHEN 500 MG TAB (TYLENOL) PO SCH (20:36)
[2017-12-03] MEDS ORDERED: NON-FORMULARY MEDICATION 1 EA EA (Acetaminophen/Diphenhydramine (Tylenol Pm Ex-Strength Ca PO SCH (21:00)
[2017-12-03] MEDS: diphenhydrAMINE 25 MG TAB (BENADRYL) PO SCH (21:17)
[2017-12-03] MEDS: ALPRAZolam 1 MG (XANAX) TAB PO SCH (21:17)
[2017-12-03] MEDS: busPIRone 10 MG (BUSPAR) TAB PO SCH (21:17)
[2017-12-04] VITALS (10 sets, daily range): BP systolic 113–173; BP diastolic 66–102
[2017-12-04] MEDS: PANTOPRAZOLE 40 MG (PROTONIX) TAB PO SCH (05:05)
[2017-12-04] MEDS: NS W/KCL 20 MEQ/L 1,000 ML IV SCH (05:05)
[2017-12-04] MEDS ORDERED: REGADENOSON 0.4 MG/5 ML SYR (LEXISCAN) IV ONE ×2 (07:51→08:15)
[2017-12-04] MEDS ORDERED: NON-FORMULARY MEDICATION 1 EA EA (Omeprazole 40 MG) PO SCH (09:00)
[2017-12-04] MEDS ORDERED: FENOFIBRATE MICRONIZED 200 MG PO SCH (09:00)
[2017-12-04] MEDS: meTOproloL SUCCINATE 50 MG (TOPROL XL) TAB PO SCH ×2 (10:13→20:02)
[2017-12-04] MEDS: APIXABAN 5 MG (ELIQUIS) TABLET PO SCH ×2 (10:14→20:02)
[2017-12-04] MEDS: ALPRAZolam 1 MG (XANAX) TAB PO SCH ×2 (10:14→20:01)
[2017-12-04] MEDS: busPIRone 10 MG (BUSPAR) TAB PO SCH ×2 (10:14→20:02)
[2017-12-04] MEDS: DILTIAZEM 120 MG (CARDIZEM CD) CAP PO SCH (10:14)
[2017-12-04] MEDS: MAGNESIUM OXIDE (MAG-OX)400 MG TAB PO SCH (10:14)
[2017-12-04] MEDS: raLOXifene 60 MG (EVISTA) TAB PO SCH (10:14)
[2017-12-04] MEDS: SERTRALINE 50 MG (ZOLOFT) TABLET PO SCH (10:14)
--- NOTE | 2017-12-04 11:42 | Discharge Summary-Hospitalist ---
Diagnosis/Chief Complaint Date of Admission Dec 02, 2017 at 15:41 Date of Discharge Discharge Date: Dec 04, 2017 Admission Diagnosis Assessment: Atrial fibrillation with rapid ventricular response with history of episodes managed by Dr. Price and cardiology at [facility] Orthostatic hypotension with syncope Uneventful cardioversion by Dr. Price this morning History of anxiety Osteoporosis Discharge Diagnosis She is doing well this morning. She had her stress test done and is rate controlled with Cardizem. States she is ready to go home today. ROS: Const- Feels well Resp- no cough no SOB Cardiac- No CP. Denies palpitations GI- no abdominal pain. denies diarrhea MSK- no joint swelling or pain Psych- + depression and anxiety. PE: General- NAD. Sitting in bed. HEENT- non-traumatic, normocephalic, PERRLA Cardio- RRR, no murmurs rubs or gallops appreciated Resp- Even chest movement, CTAB GI- NTTP, no distention, +BS Ext- no LE swelling, FROM of all extremities Neuro- AOx3 Assessment: Atrial fibrillation with rapid ventricular response with history of episodes managed by Dr. Price and cardiology at [facility] Orthostatic hypotension with syncope Uneventful cardioversion by Dr. Price yesterday History of anxiety Osteoporosis Plan: Will D/C to home today with Cardizem rx She will have an appt with in the future for possible ablation f/u with Dr. Price as op Discharge Summary Discharge Physical Examination Allergies: Coded Allergies: Sulfa (Sulfonamide Antibiotics) (Verified Allergy, Severe, HIVES, 11/14/17 ) amoxicillin (Verified Allergy, Unknown, hives, 11/09/16) clavulanic acid (Verified Allergy, Unknown, hives, 11/09/16) Vitals & I&Os Vital Signs Date Time Temp Pulse Resp B/P (MAP) Pulse Ox O2 Delivery O2 Flow Rate FiO2 12/05/17 08:00 97.5 59 16 148/75 (99) 97 Room Air Hospital Course Pt did not DC as planned due to close monitoring for 4 days is required before DC due to new med. Pt seen and examined and will be on Tely until DC by Dr Price. Discharge Home Medications: Active Scripts Active Reported Tylenol Pm Ex-Strength Caplet (Acetaminophen/Diphenhydramine) 1 Each Tablet 1 Tab PO HS Vitamin E (Vitamin E Acetate) 400 Unit Capsule 400 Unit PO DAILY Biotin 5,000 Mcg Tab.rapdis 5,000 Mcg PO DAILY Tramadol HCl 50 Mg Tablet 25-50 Mg PO Q6H PRN Multaq (Dronedarone HCl) 400 Mg Tablet 400 Mg PO BID Fish Oil 1,200 mg Fish Oil (Fish Oil/Dha/Epa) 1 Each Capsule 1,200 Mg PO BID Cartia Xt (Diltiazem HCl) 120 Mg Cap.er.24h 120 Mg PO DAILY PRN may take when elevated heartbeat Magox 400 (Magnesium Oxide) 400 Mg Tablet 400 Mg PO DAILY Buspirone HCl 10 Mg Tablet 10 Mg PO BID Levocetirizine Dihydrochloride 5 Mg Tablet 5 Mg PO DAILY PRN Raloxifene HCl 60 Mg Tablet 60 Mg PO DAILY Fenofibrate (Fenofibrate,Micronized) 200 Mg Capsule 200 Mg PO DAILY Omeprazole 40 Mg Capsule.dr 40 Mg PO DAILY Enalapril Maleate 20 Mg Tablet 20 Mg PO DAILY Alprazolam 1 Mg Tablet 1 Mg PO BID Eliquis (Apixaban) 5 Mg Tablet 5 Mg PO BID Metoprolol Succinate 50 Mg Tab.er.24h 50 Mg PO BID Zoloft (Sertraline HCl) 50 Mg Tablet 50 Mg PO DAILY Instructions to patient/family Please see electronic discharge instructions given to patient. Clinical Quality Measures DVT/VTE Risk/Contraindication: Risk Factor Score Per Nursin RFS Level Per Nursing on Admit: 2=Moderate KIMBERLEY BAH DO Dec 04, 2017 11:42
--- NOTE | 2017-12-04 12:36 | Cardiology Progress Note ---
Subjective Date Seen by Provider: Dec 04, 2017 Time Seen by Provider: 12:35 Subjective/Events-last exam Patient is in bed, feeling better, no new complaint, no chest pain or palpitation, currently in sinus bradycardia Review of Systems General: No Chills, No Night Sweats, No Fatigue, No Malaise, No Appetite, No Other HEENT: No Head Aches, No Visual Changes, No Eye Pain, No Ear Pain, No Dysphasia , No Sinus Congestion, No Post Nasal Drip, No Sore Throat, No Other Pulmonary: No Dyspnea, No Cough, No Pleuritic Chest Pain, No Other Cardiovascular: No: Chest Pain, Palpitations, Orthopnea, Paroxysmal Noc. Dyspnea, Edema, Lt Headedness, Other Objective-Cardiology Exam Last Set of Vital Signs Vital Signs 12/04/17 09:45 Temp 98.6 Pulse 70 Resp 20 B/P (MAP) 163/102 (122) Pulse Ox 96 O2 Delivery Room Air Capillary Refill : Less Than 3 Seconds I&O Intake and Output 12/04/17 00:00 Intake Total 5545 ml Output Total 4350 ml Balance 1195 ml Intake Oral 1420 ml IV Total 4125 ml Output Urine Total 4350 ml General: Alert, Oriented X3, Cooperative HEENT: Atraumatic, PERRLA Neck: Supple, No JVD, No Thyromegaly Lungs: Clear to Auscultation, Normal Air Movement Heart: Regular Rate, Normal S1, Normal S2, No Murmurs Abdomen: Normal Bowel Sounds, Soft, No Tenderness, No Hepatosplenomegaly, No Masses Extremities: No Clubbing, No Cyanosis, No Edema, Normal Pulses, No Tenderness/ Swelling Skin: No Rashes, No Breakdown, No Significant Lesion Neuro: Normal Gait, Normal Speech, Strength at 5/5 X4 Ext, Normal Tone, Sensation Intact Psych/Mental Status: Mental Status NL, Mood NL A/P-Cardiology Admission Diagnosis Paroxysmal atrial fibrillation Syncope Nonsustained ventricular tachycardia Hypertension Assessment/Plan Paroxysmal atrial fibrillation/flutter-She was on flecainide where she was noted to have multiple episodes of wide-complex tachycardia, electrolytes were normal. Medication was discontinued. Patient underwent ablation with Dr. Kelly in [facility] February 2016. Underwent ROSIO with cardioversion October 2017, however, patient is back in atrial flutter today with heart rate 120s. She is currently maintained on Toprol-XL 50 g twice daily, Cardizem CD 120 mg daily. Was on Multaq, QTC is prolonged, I will stop Multaq and monitor QT interval, we'll consider sotalol. Discussed with Dr. Coulter regarding expediting her ablation. Syncope, PO2 be orthostatic due to tachycardia and hypotension, underlying malignant arrhythmia cannot be entirely excluded especially with a history of ventricular tachycardia, I will continue to monitor closely, stress test showed no ischemia or infarction with normal left ventricular size and function [id number] score is 3, yearly risk of stroke without oral anticoagulation is 3.2 percent which is considered high risk for stroke, maintained on Eliquis. Continue to monitor. Nonobstructive coronary artery disease per cardiac catheterization done on October 30, 2015, questionable T-wave inversion while she was in sinus rhythm, stress test showed no ischemia or infarction with normal left ventricular size and function Nonsustained ventricular tachycardia in the past, multiple episodes of wide- complex tachycardia appeared to be nonsustained, patient was on flecainide at that time, cardiac catheterization was done in October 2015 and it was normal. continue to monitor Multiple episodes of wide-complex tachycardia, appeared to be nonsustained ventricular tachycardia, patient was on flecainide, cardiac catheterization was done in October 2015 and was normal, flecainide was discontinued. No further episodes since then. Hypertension, monitor blood pressure Hyperlipidemia, intolerant to statins secondary to history of elevated LFTs. Maintained on fenofibrate. Continue to monitor. History of intolerance to amiodarone secondary to elevated LFTs. Gastroesophageal reflux disease-continue current medication. Mild bilateral carotid stenosis, last ultrasound was done in May 2017, continue to monitor Hyperthyroidism- follows with wildland fire fighter. Clinical Quality Measures DVT/VTE Risk/Contraindication: Risk Factor Score Per Nursin RFS Level Per Nursing on Admit: 2=Moderate RENÉ GR MD Dec 04, 2017 12:36
--- NOTE | 2017-12-04 14:14 | STRESS TEST ---
DATE OF SERVICE: 12/04/2017 LEXISCAN MYOVIEW STRESS TEST REPORT Baseline heart rate is 63. Baseline blood pressure 173/94. Baseline EKG sinus rhythm with no ischemic changes. In summary, the patient was injected with 10.57 mCi of technetium-99 Myoview and the resting images were obtained and the patient received 0.4 mg of Lexiscan followed by 32.7 mCi of technetium-99 Myoview. Throughout the test, there were no EKG changes. The resting and stress images were reviewed and compared in the short axis, horizontal long axis, and vertical long axis views. Review of the images showed good radiotracer uptake with no ischemia or infarction. SSS is 0 and TID value 1.08. On the gated images, the left ventricle appeared to be normal size with normal contractility. Calculated ejection fraction 55%. CONCLUSION: 1. The patient tolerated Lexiscan well. 2. No ischemia or infarction on SPECT images. 3. Normal left ventricular size with normal contractility. Calculated ejection fraction 55%. Job ID: [id number] DocumentID: [id number] Dictated Date: 12/04/2017 11:52:59 Refining Machine Operator Date: 12/04/2017 12:16:47 Dictated By: RENÉ GR MD
[2017-12-04] MEDS: ACETAMINOPHEN 500 MG TAB (TYLENOL) PO SCH (20:01)
[2017-12-04] MEDS: diphenhydrAMINE 25 MG TAB (BENADRYL) PO SCH (20:01)
[2017-12-04] MEDS: FENOFIBRATE 134 MG (LOFIBRA) CAPSULE PO SCH (20:02)
[2017-12-04] MEDS: FENOFIBRATE, MICRO 67 MG (LOFIBRA) CAPSULE PO SCH (20:02)
[2017-12-05 04:00] VITALS: BP 158/89
[2017-12-05] MEDS: PANTOPRAZOLE 40 MG (PROTONIX) TAB PO SCH (06:08)
[2017-12-05 08:00] VITALS: BP 148/75
--- NOTE | 2017-12-05 08:47 | Cardiology Progress Note ---
Subjective Date Seen by Provider: Dec 05, 2017 Time Seen by Provider: 08:42 Subjective/Events-last exam Patient is in bed, feeling better today, no chest pain Review of Systems General: No Chills, No Night Sweats, No Fatigue, No Malaise, No Appetite, No Other HEENT: No Head Aches, No Visual Changes, No Eye Pain, No Ear Pain, No Dysphasia , No Sinus Congestion, No Post Nasal Drip, No Sore Throat, No Other Pulmonary: No Dyspnea, No Cough, No Pleuritic Chest Pain, No Other Cardiovascular: No: Chest Pain, Palpitations, Orthopnea, Paroxysmal Noc. Dyspnea, Edema, Lt Headedness, Other Objective-Cardiology Exam Last Set of Vital Signs Vital Signs 12/05/17 08:00 Temp 97.5 Pulse 59 Resp 16 B/P (MAP) 148/75 (99) Pulse Ox 97 O2 Delivery Room Air Capillary Refill : Less Than 3 Seconds I&O Intake and Output 12/05/17 00:00 Intake Total 2340 ml Output Total 2600 ml Balance -260 ml Intake Oral 1340 ml IV Total 1000 ml Output Urine Total 2600 ml # Voids 3 General: Alert, Oriented X3, Cooperative HEENT: Atraumatic, PERRLA Neck: Supple, No JVD, No Thyromegaly Lungs: Clear to Auscultation, Normal Air Movement Heart: Regular Rate, Normal S1, Normal S2, No Murmurs Abdomen: Normal Bowel Sounds, Soft, No Tenderness, No Hepatosplenomegaly, No Masses Extremities: No Clubbing, No Cyanosis, No Edema, Normal Pulses, No Tenderness/ Swelling Skin: No Rashes, No Breakdown, No Significant Lesion Neuro: Normal Gait, Normal Speech, Strength at 5/5 X4 Ext, Normal Tone, Sensation Intact Psych/Mental Status: Mental Status NL, Mood NL A/P-Cardiology Admission Diagnosis Paroxysmal atrial fibrillation Syncope Nonsustained ventricular tachycardia Hypertension Assessment/Plan Paroxysmal atrial fibrillation/flutter-She was on flecainide where she was noted to have multiple episodes of wide-complex tachycardia, electrolytes were normal. Medication was discontinued. Patient underwent ablation with Dr. Kelly in [facility] February 2016. Underwent ROSIO with cardioversion October 2017, however, patient is back in atrial flutter today with heart rate 120s. She is currently maintained on Toprol-XL 50 g twice daily, Cardizem CD 120 mg daily. Discuss[address] with Dr. Coulter regarding expediting her ablation. will start Sotalol and monitor QTc for the next 3 days. Syncope, probably orthostatic due to tachycardia and hypotension, underlying malignant arrhythmia cannot be entirely excluded especially with a history of ventricular tachycardia, I will continue to monitor closely, stress test showed no ischemia or infarction with normal left ventricular size and function [id number] score is 3, yearly risk of stroke without oral anticoagulation is 3.2 percent which is considered high risk for stroke, maintained on Eliquis. Continue to monitor. Nonobstructive coronary artery disease per cardiac catheterization done on October 30, 2015, questionable T-wave inversion while she was in sinus rhythm, stress test showed no ischemia or infarction with normal left ventricular size and function Nonsustained ventricular tachycardia in the past, multiple episodes of wide- complex tachycardia appeared to be nonsustained, patient was on flecainide at that time, cardiac catheterization was done in October 2015 and it was normal. continue to monitor Multiple episodes of wide-complex tachycardia, appeared to be nonsustained ventricular tachycardia, patient was on flecainide, cardiac catheterization was done in October 2015 and was normal, flecainide was discontinued. No further episodes since then. Hypertension, monitor blood pressure Hyperlipidemia, intolerant to statins secondary to history of elevated LFTs. Maintained on fenofibrate. Continue to monitor. History of intolerance to amiodarone secondary to elevated LFTs. Gastroesophageal reflux disease-continue current medication. 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 Clinical Quality Measures DVT/VTE Risk/Contraindication: Risk Factor Score Per Nursin RFS Level Per Nursing on Admit: 2=Moderate RENÉ GR MD Dec 05, 2017 08:47
[2017-12-05] MEDS: SERTRALINE 50 MG (ZOLOFT) TABLET PO SCH (09:02)
[2017-12-05] MEDS: SOTALOL 80 MG (BETAPACE) TAB PO SCH ×2 (09:02→21:03)
[2017-12-05] MEDS: ALPRAZolam 1 MG (XANAX) TAB PO SCH ×2 (09:02→21:03)
[2017-12-05] MEDS: busPIRone 10 MG (BUSPAR) TAB PO SCH ×2 (09:02→21:03)
[2017-12-05] MEDS: MAGNESIUM OXIDE (MAG-OX)400 MG TAB PO SCH (09:03)
[2017-12-05] MEDS: APIXABAN 5 MG (ELIQUIS) TABLET PO SCH ×2 (09:03→21:03)
[2017-12-05] MEDS: raLOXifene 60 MG (EVISTA) TAB PO SCH (09:03)
[2017-12-05] MEDS: DILTIAZEM 120 MG (CARDIZEM CD) CAP PO SCH (09:03)
--- NOTE | 2017-12-05 10:21 | Progress Note-Hospitalist ---
Progress Note HPI/CC on Admission CC: AF w/RVR w/syncope HPI: This is a 72-year-old white female clinic patient Dr. Dunn and Dr. Price with a past medical history of atrial fibrillation with rapid ventricular response managed by Dr. Coulter at [facility] who presents after a direct admission from Dr. Price's office when she presented after a syncopal episode at home found to have atrial fibrillation with rapid ventricular response and borderline orthostatic hypotension. She was stabilized had an uneventful cardioversion and in the midst of conferring with Dr. Price and cardiology at [facility] for medication selection. Her ejection fraction is 35 percent on last echocardiogram indicating ischemic cardiomyopathy chronically. Progress Notes/Assess & Plan Date Seen 12/05/17 Time Seen by Provider: 10:30 Admission Dx/Process Assessment: Atrial fibrillation with rapid ventricular response with history of episodes managed by Dr. Price and cardiology at [facility] Orthostatic hypotension with syncope Uneventful cardioversion by Dr. Price this morning History of anxiety Osteoporosis Diagonsis/Assessment & Plan Pt is up sitting in the chair and in a good mood this morning. She understands that she is in the hospital because of the need to monitor her after starting Sotalol. ROS: Const- Feels well Resp- no cough no SOB Cardiac- No CP. Denies palpitations GI- no abdominal pain. denies diarrhea +BM MSK- no joint swelling or pain Psych- + anxiety. PE: General- NAD. Up in chair on exam HEENT- non-traumatic, normocephalic, PERRLA Cardio- regular rhythm, isidoro sinus, no murmurs rubs or gallops appreciated Resp- Even chest movement, CTAB GI- NTTP, no distention, +BS Ext- no LE swelling, FROM of all extremities Neuro- AOx3 Assessment: Atrial fibrillation with rapid ventricular response with history of episodes managed by Dr. Price and cardiology at [facility] now placed on Sotalol and will need to be monitored closely until Friday Orthostatic hypotension with syncope Uneventful cardioversion by Dr. Price this morning History of anxiety Osteoporosis Plan: Will likely stay in hospital over weekend, since starting sotalol Stress test yesterday was normal Will continue diltiazem for rate control Encourage plenty of movement and fluids. KIMBERLEY BAH DO Dec 05, 2017 10:20
[2017-12-05 12:00] VITALS: BP 132/61
[2017-12-05 16:00] VITALS: BP 148/88
[2017-12-05 20:00] VITALS: BP 126/84
[2017-12-05] MEDS: FENOFIBRATE 134 MG (LOFIBRA) CAPSULE PO SCH (21:02)
[2017-12-05] MEDS: FENOFIBRATE, MICRO 67 MG (LOFIBRA) CAPSULE PO SCH (21:02)
[2017-12-05] MEDS: diphenhydrAMINE 25 MG TAB (BENADRYL) PO SCH (21:02)
[2017-12-05] MEDS: ACETAMINOPHEN 500 MG TAB (TYLENOL) PO SCH (21:03)
[2017-12-06] VITALS: BP 125/72
[2017-12-06 04:00] VITALS: BP 132/75
[2017-12-06] MEDS: PANTOPRAZOLE 40 MG (PROTONIX) TAB PO SCH (06:16)
[2017-12-06 08:00] VITALS: BP 147/91
[2017-12-06] MEDS: APIXABAN 5 MG (ELIQUIS) TABLET PO SCH ×2 (09:25→20:27)
[2017-12-06] MEDS: MAGNESIUM OXIDE (MAG-OX)400 MG TAB PO SCH (09:25)
[2017-12-06] MEDS: DILTIAZEM 120 MG (CARDIZEM CD) CAP PO SCH (09:25)
[2017-12-06] MEDS: SERTRALINE 50 MG (ZOLOFT) TABLET PO SCH (09:25)
[2017-12-06] MEDS: ALPRAZolam 1 MG (XANAX) TAB PO SCH ×2 (09:25→20:27)
[2017-12-06] MEDS: SOTALOL 80 MG (BETAPACE) TAB PO SCH ×2 (09:25→20:27)
[2017-12-06] MEDS: busPIRone 10 MG (BUSPAR) TAB PO SCH ×2 (09:25→20:27)
[2017-12-06] MEDS: raLOXifene 60 MG (EVISTA) TAB PO SCH (09:25)
--- NOTE | 2017-12-06 11:57 | Progress Note-Hospitalist ---
Subjective HPI/CC On Admission Date Seen by Provider: Dec 06, 2017 Time Seen by Provider: 11:57 CC: AF w/RVR w/syncope HPI: This is a 72-year-old white female clinic patient Dr. Dunn and Dr. Price with a past medical history of atrial fibrillation with rapid ventricular response managed by Dr. Coulter at [facility] who presents after a direct admission from Dr. Price's office when she presented after a syncopal episode at home found to have atrial fibrillation with rapid ventricular response and borderline orthostatic hypotension. She was stabilized had an uneventful cardioversion and in the midst of conferring with Dr. Price and cardiology at [facility] for medication selection. Her ejection fraction is 35 percent on last echocardiogram indicating ischemic cardiomyopathy chronically. Subjective/Events-last exam Pt is doing well. No concerns. Objective Exam Vital Signs Vital Sign - Last 12Hours 12/02/17 12/02/17 14:05 16:30 Temp 97.9 Pulse 130 Resp 18 B/P (MAP) 126/98 (107) Pulse Ox 97 O2 Delivery Room Air Capillary Refill : Less Than 3 Seconds General Appearance: No Apparent Distress, WD/WN Respiratory: Lungs Clear, No Respiratory Distress Cardiovascular: Regular Rate, Rhythm, No Murmur Neurologic/Psychiatric: Alert, Oriented x3, Normal Mood/Affect Assessment/Plan Assessment and Plan Assess & Plan/Chief Complaint a-flutter Diagnosis/Problems Diagnosis/Problems (1) Atrial fib/flutter, transient Status: Acute Assessment & Plan: S/p cardioversion On Cardizem, Sotalol On Eliquis for anticoagulation Continue to monitor for [address] Price's recommendations Cards consulted, appreciate recs (2) Essential (primary) hypertension Assessment & Plan: Well controlled on current regimen (3) Anxiety Assessment & Plan: Continue on Xanax and Buspar (4) Osteoporosis Assessment & Plan: On Raloxifene DIOGO LIZAMA MD Dec 06, 2017 11:57
[2017-12-06 12:00] VITALS: BP 113/69
--- NOTE | 2017-12-06 16:15 | Progress Note-Cardiology ---
Cardiology SOAP Progress Note Subjective: She does not report cp or palp or syncope Has chronic mild R ankle swelling following a fall many years ago; no other swelling Generally feels well Objective: I&O/Vital Signs Vital Sign - Last 12Hours 12/06/17 12/06/17 12/06/17 08:00 12:00 13:00 Temp 98.6 98.6 Pulse 56 52 58 Resp 18 18 B/P (MAP) 147/91 (109) 113/69 (84) Pulse Ox 97 95 O2 Delivery Room Air Room Air Intake and Output 12/06/17 00:00 Intake Total 1850 ml Balance 1850 ml Weight (Pounds): 160 Weight (Ounces): 4.0 Weight (Calculated Kilograms): 72.429749 Constitutional: AAO x 3, well-developed, well-nourished Respiratory: No accessory muscle use, lungs clear to percussion, lungs clear to auscultation Cardiovascular: regular rate-rhythm, S1 and S2, systolic murmur (faint CHIQUIS at card base) Gastrointestional: No tender, soft, No guarding, No rebound, audible bowel sounds Extremities: No clubbing, No cyanosis, No significant edema Neurologic/Psychiatric: oriented x 3, grossly intact, power is 5/5 both on sides Skin: No rash on exposed areas, No ulcerations on exposed areas A/P: Assessment: Paroxysmal atrial fibrillation/flutter. Failed flecainide; underwent ablation in [place], [place] in February 2016; cardioversion for recurrent PAF October 2017 ; recurrent atrial flutter leading to this admission; Dr Price has discussed with Dr Coulter and pt has been started on sotalol while awaiting flutter ablation with Dr Coulter Day 2 of sotalol: QTC 480 msed Recent near-syncope, likely related to PAF with RVR and postural hypotension MPI of 12/04/17: no ischemia or infarction, LVEF 55% [id number] score is 3, yearly risk of stroke without oral anticoagulation is 3.2 percent which is considered high risk for stroke, maintained on Eliquis. Continue to monitor. Nonobstructive coronary artery disease per cardiac catheterization done on October 30, 2015, questionable T-wave inversion while she was in sinus rhythm, stress test showed no ischemia or infarction with normal left ventricular size and function Nonsustained ventricular tachycardia in the past, multiple episodes of wide- complex tachycardia, nonsustained, patient was on flecainide at that time, cardiac catheterization was done in October 2015 and it was normal; flecainide was discontinued; no further episodes since then. Hypertension Hyperlipidemia, intolerant to statins secondary to history of elevated LFTs History of intolerance to amiodarone secondary to elevated LFTs Gastroesophageal reflux disease-continue current medication Mild bilateral carotid stenosis, last ultrasound was done in May 2017, continue to monitor Hyperthyroidism- follows with pharmacy account director. Plan: * I reviewed her records * I spoke with her in detail and discussed her CV issues and our management plan * If QTc continues to rise, may have to d/c JENI Sánchez MD FACP FACC CCDS Dec 06, 2017 16:15
[2017-12-06 16:30] VITALS: BP 121/71
[2017-12-06 20:00] VITALS: BP 136/80
[2017-12-06] MEDS: FENOFIBRATE 134 MG (LOFIBRA) CAPSULE PO SCH (20:27)
[2017-12-06] MEDS: ACETAMINOPHEN 500 MG TAB (TYLENOL) PO SCH (20:27)
[2017-12-06] MEDS: FENOFIBRATE, MICRO 67 MG (LOFIBRA) CAPSULE PO SCH (20:27)
[2017-12-06] MEDS: diphenhydrAMINE 25 MG TAB (BENADRYL) PO SCH (20:27)
[2017-12-07] VITALS: BP 122/75
[2017-12-07] MEDS: PANTOPRAZOLE 40 MG (PROTONIX) TAB PO SCH (05:34)
[2017-12-07 08:00] VITALS: BP 145/83
[2017-12-07] MEDS: ALPRAZolam 1 MG (XANAX) TAB PO SCH ×2 (09:20→20:07)
[2017-12-07] MEDS: busPIRone 10 MG (BUSPAR) TAB PO SCH ×2 (09:20→20:07)
[2017-12-07] MEDS: SOTALOL 80 MG (BETAPACE) TAB PO SCH ×2 (09:20→20:07)
[2017-12-07] MEDS: APIXABAN 5 MG (ELIQUIS) TABLET PO SCH ×2 (09:20→20:07)
[2017-12-07] MEDS: DILTIAZEM 120 MG (CARDIZEM CD) CAP PO SCH (09:20)
[2017-12-07] MEDS: SERTRALINE 50 MG (ZOLOFT) TABLET PO SCH (09:20)
[2017-12-07] MEDS: MAGNESIUM OXIDE (MAG-OX)400 MG TAB PO SCH (09:20)
[2017-12-07] MEDS: raLOXifene 60 MG (EVISTA) TAB PO SCH (09:20)
--- NOTE | 2017-12-07 13:47 | Progress Note-Hospitalist ---
Subjective HPI/CC On Admission Date Seen by Provider: Dec 07, 2017 Time Seen by Provider: 13:00 CC: AF w/RVR w/syncope HPI: This is a 72-year-old white female clinic patient Dr. Dunn and Dr. Price with a past medical history of atrial fibrillation with rapid ventricular response managed by Dr. Coulter at [facility] who presents after a direct admission from Dr. Price's office when she presented after a syncopal episode at home found to have atrial fibrillation with rapid ventricular response and borderline orthostatic hypotension. She was stabilized had an uneventful cardioversion and in the midst of conferring with Dr. Price and cardiology at [facility] for medication selection. Her ejection fraction is 35 percent on last echocardiogram indicating ischemic cardiomyopathy chronically. Subjective/Events-last exam Pt reports doing well today. Was up and took shower. Objective Exam Vital Signs Vital Sign - Last 12Hours 12/02/17 12/02/17 14:05 16:30 Temp 97.9 Pulse 130 Resp 18 B/P (MAP) 126/98 (107) Pulse Ox 97 O2 Delivery Room Air Capillary Refill : Less Than 3 Seconds General Appearance: No Apparent Distress, WD/WN Respiratory: Lungs Clear, No Respiratory Distress Cardiovascular: No Murmur, Bradycardia Gastrointestinal: Normal Bowel Sounds, Non Tender, Soft Extremity: Other (right ankle with bruise and edema ) Neurologic/Psychiatric: Alert, Oriented x3, Normal Mood/Affect Assessment/Plan Assessment and Plan Assess & Plan/Chief Complaint a-flutter Diagnosis/Problems Diagnosis/Problems (1) Atrial fib/flutter, transient Status: Acute Assessment & Plan: S/p cardioversion On Cardizem, Sotalol On Eliquis for anticoagulation Continue to monitor QTC for [address] Price's recommendations QTc 462 today Cards consulted, appreciate recs Somewhat bradycardiac Follows with [facility] (2) Essential (primary) hypertension Assessment & Plan: Well controlled on current regimen (3) Anxiety Assessment & Plan: Continue on Zolost, Xanax, and Buspar (4) Osteoporosis Assessment & Plan: On Raloxifene DIOGO LIZAMA MD Dec 07, 2017 13:47
--- NOTE | 2017-12-07 14:06 | Progress Note-Cardiology ---
Cardiology SOAP Progress Note Subjective: No cp or palp or syncope Does not feel ready to go home; lives by self and is afraid may get into trouble at home Objective: I&O/Vital Signs Vital Sign - Last 12Hours 12/07/17 12/07/17 12/07/17 07:00 08:00 13:00 Temp 97.5 Pulse 45 50 51 Resp 16 B/P (MAP) 145/83 (103) Pulse Ox 98 O2 Delivery Room Air Intake and Output 12/07/17 00:00 Intake Total 2145 ml Balance 2145 ml Weight (Pounds): 159 Weight (Ounces): 6.0 Weight (Calculated Kilograms): 72.407219 Constitutional: AAO x 3, well-developed, well-nourished Respiratory: No accessory muscle use, lungs clear to percussion, lungs clear to auscultation Cardiovascular: regular rate-rhythm, S1 and S2, systolic murmur (faint CHIQUIS at card base) Gastrointestional: No tender, soft, No guarding, No rebound, audible bowel sounds Extremities: No clubbing, No cyanosis, No significant edema Neurologic/Psychiatric: oriented x 3, grossly intact, power is 5/5 both on sides Skin: No rash on exposed areas, No ulcerations on exposed areas A/P: Assessment: Paroxysmal atrial fibrillation/flutter. Failed flecainide; underwent ablation in [place], [place] in February 2016; cardioversion for recurrent PAF in October 2017; recurrent atrial flutter leading to this admission; Dr Price has discussed with Dr Coulter and pt has been started on sotalol while awaiting flutter ablation with Dr Coulter Day 3 of sotalol: QTc 462 msec Recent near-syncope, likely related to PAF with RVR and postural hypotension MPI of 12/04/17: no ischemia or infarction, LVEF 55% [id number] score is 3, yearly risk of stroke without oral anticoagulation is 3.2 percent which is considered high risk for stroke, maintained on Eliquis. Continue to monitor. Nonobstructive coronary artery disease per cardiac catheterization done on October 30, 2015, questionable T-wave inversion while she was in sinus rhythm, stress test showed no ischemia or infarction with normal left ventricular size and function Nonsustained ventricular tachycardia in the past, multiple episodes of wide- complex tachycardia, nonsustained, patient was on flecainide at that time, cardiac catheterization was done in October 2015 and it was normal; flecainide was discontinued; no further episodes since then. Hypertension Hyperlipidemia, intolerant to statins secondary to history of elevated LFTs History of intolerance to amiodarone secondary to elevated LFTs Gastroesophageal reflux disease-continue current medication Mild bilateral carotid stenosis, last ultrasound was done in May 2017, continue to monitor Hyperthyroidism- follows with b2b appointment setter. Plan: * I spoke with her in detail and discussed her CV issues and our management plan * She is afraid to go home, because she lives by herself. Would need discharge planning JENI MUÑOZ MD FACP FAC CCDS Dec 07, 2017 14:06
[2017-12-07 15:56] VITALS: BP 129/79
[2017-12-07] MEDS: ACETAMINOPHEN 500 MG TAB (TYLENOL) PO PRN (17:24)
[2017-12-07] MEDS: ACETAMINOPHEN 500 MG TAB (TYLENOL) PO SCH (20:07)
[2017-12-07] MEDS: FENOFIBRATE, MICRO 67 MG (LOFIBRA) CAPSULE PO SCH (20:07)
[2017-12-07] MEDS: diphenhydrAMINE 25 MG TAB (BENADRYL) PO SCH (20:07)
[2017-12-07] MEDS: FENOFIBRATE 134 MG (LOFIBRA) CAPSULE PO SCH (20:07)
[2017-12-08 00:10] VITALS: BP 134/80
[2017-12-08 04:35] VITALS: BP 124/80
[2017-12-08] MEDS: PANTOPRAZOLE 40 MG (PROTONIX) TAB PO SCH (05:51)
[2017-12-08 08:00] VITALS: BP 142/92
[2017-12-08] MEDS: busPIRone 10 MG (BUSPAR) TAB PO SCH (08:45)
[2017-12-08] MEDS: SERTRALINE 50 MG (ZOLOFT) TABLET PO SCH (08:45)
[2017-12-08] MEDS: raLOXifene 60 MG (EVISTA) TAB PO SCH (08:45)
[2017-12-08] MEDS: APIXABAN 5 MG (ELIQUIS) TABLET PO SCH (08:45)
[2017-12-08] MEDS: MAGNESIUM OXIDE (MAG-OX)400 MG TAB PO SCH (08:45)
[2017-12-08] MEDS: ALPRAZolam 1 MG (XANAX) TAB PO SCH (08:45)
[2017-12-08] MEDS: SOTALOL 80 MG (BETAPACE) TAB PO SCH (08:45)
[2017-12-08] MEDS: DILTIAZEM 120 MG (CARDIZEM CD) CAP PO SCH (08:45)
--- NOTE | 2017-12-08 08:55 | Cardiology Progress Note ---
Subjective Date Seen by Provider: Dec 08, 2017 Time Seen by Provider: 08:53 Subjective/Events-last exam Patient is in bed, feeling better, no new complaint, no chest pain or shortness of breath Review of Systems General: No Chills, No Night Sweats, No Fatigue, No Malaise, No Appetite, No Other HEENT: No Head Aches, No Visual Changes, No Eye Pain, No Ear Pain, No Dysphasia , No Sinus Congestion, No Post Nasal Drip, No Sore Throat, No Other Pulmonary: No Dyspnea, No Cough, No Pleuritic Chest Pain, No Other Cardiovascular: No: Chest Pain, Palpitations, Orthopnea, Paroxysmal Noc. Dyspnea, Edema, Lt Headedness, Other Objective-Cardiology Exam Last Set of Vital Signs Vital Signs 12/08/17 12/08/17 04:35 07:00 Temp 97.8 Pulse 64 Resp 20 B/P (MAP) 124/80 (95) Pulse Ox 99 O2 Delivery Room Air Capillary Refill : Less Than 3 Seconds I&O Intake and Output 12/08/17 00:00 Intake Total 1550 ml Balance 1550 ml Intake Oral 1550 ml # Voids 10 # Bowel Movements 1 General: Alert, Oriented X3, Cooperative HEENT: Atraumatic, PERRLA Neck: Supple, No JVD, No Thyromegaly Lungs: Clear to Auscultation, Normal Air Movement Heart: Regular Rate, Normal S1, Normal S2, No Murmurs Abdomen: Normal Bowel Sounds, Soft, No Tenderness, No Hepatosplenomegaly, No Masses Extremities: No Clubbing, No Cyanosis, No Edema, Normal Pulses, No Tenderness/ Swelling Skin: No Rashes, No Breakdown, No Significant Lesion Neuro: Normal Gait, Normal Speech, Strength at 5/5 X4 Ext, Normal Tone, Sensation Intact Psych/Mental Status: Mental Status NL, Mood NL A/P-Cardiology Admission Diagnosis Paroxysmal atrial fibrillation Syncope Nonsustained ventricular tachycardia Hypertension Assessment/Plan Paroxysmal atrial fibrillation/flutter-She was on flecainide where she was noted to have multiple episodes of wide-complex tachycardia, electrolytes were normal. Medication was discontinued. Patient underwent ablation with Dr. Kelly in [facility] February 2016. Underwent ROSIO with cardioversion October 2017, had another episode of atrial flutter, underwent cardioversion and started on sotalol, QTC is 476 today. Day number 4. I will discharge home and arrange for follow-up as an outpatient Syncope, probably orthostatic due to tachycardia and hypotension, underlying malignant arrhythmia cannot be entirely excluded especially with a history of ventricular tachycardia, I will continue to monitor closely, stress test showed no ischemia or infarction with normal left ventricular size and function [id number] score is 3, yearly risk of stroke without oral anticoagulation is 3.2 percent which is considered high risk for stroke, maintained on Eliquis. Continue to monitor. Nonobstructive coronary artery disease per cardiac catheterization done on October 30, 2015, questionable T-wave inversion while she was in sinus rhythm, stress test showed no ischemia or infarction with normal left ventricular size and function Nonsustained ventricular tachycardia in the past, multiple episodes of wide- complex tachycardia appeared to be nonsustained, patient was on flecainide at that time, cardiac catheterization was done in October 2015 and it was normal. continue to monitor Multiple episodes of wide-complex tachycardia, appeared to be nonsustained ventricular tachycardia, patient was on flecainide, cardiac catheterization was done in October 2015 and was normal, flecainide was discontinued. No further episodes since then. Hypertension, monitor blood pressure Hyperlipidemia, intolerant to statins secondary to history of elevated LFTs. Maintained on fenofibrate. Continue to monitor. History of intolerance to amiodarone secondary to elevated LFTs. Gastroesophageal reflux disease-continue current medication. Mild bilateral carotid stenosis, last ultrasound was done in May 2017, continue to monitor Hyperthyroidism- follows with bank manager. Clinical Quality Measures DVT/VTE Risk/Contraindication: Risk Factor Score Per Nursin RFS Level Per Nursing on Admit: 2=Moderate RENÉ GR MD Dec 08, 2017 08:55
[2017-12-08] MEDS ORDERED: Sotalol Hcl PO (08:56)
--- NOTE | 2017-12-08 09:44 | Physical Therapy Progress Note ---
Therapy Progress Note Patient is currently up independently in room and picking up things off of floor and packing her bag. No skilled PT indicated at this time. CHAVO ROSA PT Dec 08, 2017 09:44
--- NOTE | 2017-12-08 12:49 | Discharge Summary-Hospitalist ---
Diagnosis/Chief Complaint Date of Admission Dec 02, 2017 at 15:41 Date of Discharge Dec 08, 2017 at 12:12 Admission Diagnosis Assessment: Atrial fibrillation with rapid ventricular response with history of episodes managed by Dr. Price and cardiology at [facility] Orthostatic hypotension with syncope Uneventful cardioversion by Dr. Price this morning History of anxiety Osteoporosis Discharge Diagnosis a-flutter (1) Atrial fib/flutter, transient Status: Acute Assessment & Plan: S/p cardioversion On Cardizem, Sotalol On Eliquis for anticoagulation Continue to monitor QTC for [address] Price's recommendations QTc 462 today Cards consulted, appreciate recs Somewhat bradycardiac Follows with [facility] (2) Essential (primary) hypertension Assessment & Plan: Well controlled on current regimen (3) Anxiety Assessment & Plan: Continue on Zolost, Xanax, and Buspar (4) Osteoporosis Assessment & Plan: On Raloxifene Discharge Summary Consultations Cardiology- Dr Lyly Price Discharge Physical Examination Allergies: Coded Allergies: Sulfa (Sulfonamide Antibiotics) (Verified Allergy, Severe, HIVES, 11/14/17 ) amoxicillin (Verified Allergy, Unknown, hives, 11/09/16) clavulanic acid (Verified Allergy, Unknown, hives, 11/09/16) Vitals & I&Os Vital Signs Date Time Temp Pulse Resp B/P (MAP) Pulse Ox O2 Delivery O2 Flow Rate FiO2 12/08/17 08:00 99 Room Air 12/08/17 08:00 98.1 63 20 142/92 (109) Hospital Course Pt was admitted to the hospital following a syncopal episode and was found to be in a-fib with RVR. She was admitted to the ICU for cardizem gtt. She was transitioned to oral cardizem and started on Sotalol given her extensive history of failed cardioversions and ablations. She was monitored for 3 days to monitor her QTC which remained well under 500 (460-470 range). She was discharged home in stable condition to follow up with Dr. Price until arrangements can be made at [facility] for further attempts at ablation. Discharge Home Medications: Active Scripts Active Reported Sotalol (Sotalol HCl) 80 Mg Tablet 80 Mg PO BID Tylenol Pm Ex-Strength Caplet (Acetaminophen/Diphenhydramine) 1 Each Tablet 1 Tab PO HS Vitamin E (Vitamin E Acetate) 400 Unit Capsule 400 Unit PO DAILY Biotin 5,000 Mcg Tab.rapdis 5,000 Mcg PO DAILY Tramadol HCl 50 Mg Tablet 25-50 Mg PO Q6H PRN Fish Oil 1,200 mg Fish Oil (Fish Oil/Dha/Epa) 1 Each Capsule 1,200 Mg PO BID Cartia Xt (Diltiazem HCl) 120 Mg Cap.er.24h 120 Mg PO DAILY PRN may take when elevated heartbeat Magox 400 (Magnesium Oxide) 400 Mg Tablet 400 Mg PO DAILY Buspirone HCl 10 Mg Tablet 10 Mg PO BID Levocetirizine Dihydrochloride 5 Mg Tablet 5 Mg PO HS PRN Raloxifene HCl 60 Mg Tablet 60 Mg PO DAILY Fenofibrate (Fenofibrate,Micronized) 200 Mg Capsule 200 Mg PO DAILY Omeprazole 40 Mg Capsule.dr 40 Mg PO DAILY Enalapril Maleate 20 Mg Tablet 20 Mg PO DAILY Alprazolam 1 Mg Tablet 1 Mg PO BID Eliquis (Apixaban) 5 Mg Tablet 5 Mg PO BID Zoloft (Sertraline HCl) 50 Mg Tablet 50 Mg PO DAILY Instructions to patient/family Please see electronic discharge instructions given to patient. Clinical Quality Measures DVT/VTE Risk/Contraindication: Risk Factor Score Per Nursin RFS Level Per Nursing on Admit: 2=Moderate Copy Copies To 1: RENÉ PRICE MD; VALENCIA WILSON KATELYN M MD Dec 08, 2017 12:49
--- NOTE | 2017-12-08 16:14 | Discharge Summary-Hospitalist ---
Diagnosis/Chief Complaint Date of Admission Dec 02, 2017 at 15:41 Date of Discharge Dec 08, 2017 at 12:12 Admission Diagnosis Assessment: Atrial fibrillation with rapid ventricular response with history of episodes managed by Dr. Price and cardiology at [facility] Orthostatic hypotension with syncope Uneventful cardioversion by Dr. Price this morning History of anxiety Osteoporosis Discharge Diagnosis a-flutter (1) Atrial fib/flutter, transient Status: Acute Assessment & Plan: S/p cardioversion On Cardizem, Sotalol On Eliquis for anticoagulation Continue to monitor QTC for [address] Price's recommendations- QTC remained <500 Cards consulted, appreciate recs Somewhat bradycardiac Follows with [facility] (2) Essential (primary) hypertension Assessment & Plan: Well controlled on current regimen (3) Anxiety Assessment & Plan: Continue on Zolost, Xanax, and Buspar (4) Osteoporosis Assessment & Plan: On Raloxifene Discharge Summary Discharge Physical Examination Allergies: Coded Allergies: Sulfa (Sulfonamide Antibiotics) (Verified Allergy, Severe, HIVES, 11/14/17 ) amoxicillin (Verified Allergy, Unknown, hives, 11/09/16) clavulanic acid (Verified Allergy, Unknown, hives, 11/09/16) Vitals & I&Os Vital Signs Date Time Temp Pulse Resp B/P (MAP) Pulse Ox O2 Delivery O2 Flow Rate FiO2 12/08/17 08:00 99 Room Air 12/08/17 08:00 98.1 63 20 142/92 (109) Hospital Course Pt is a 72yoCF who presented following a syncopal episode in her home. She was found to be in a-fib with RVR with orthostasis. She failed ROSIO and cardioversion in October and was started on Sotalol. She was monitor for 3 days following initiation of Sotalol for QTC prolongation and tolerated it well as managed by Dr. Price. She is to follow up with Dr Price as an outpatient to arrange for follow up at [facility] regarding possible ablation. Discharge Home Medications: Active Scripts Active [Sotalol Hcl] 80 MG Tab 80 Mg PO BID Reported Tylenol Pm Ex-Strength Caplet (Acetaminophen/Diphenhydramine) 1 Each Tablet 1 Tab PO HS Vitamin E (Vitamin E Acetate) 400 Unit Capsule 400 Unit PO DAILY Biotin 5,000 Mcg Tab.rapdis 5,000 Mcg PO DAILY Tramadol HCl 50 Mg Tablet 25-50 Mg PO Q6H PRN Fish Oil 1,200 mg Fish Oil (Fish Oil/Dha/Epa) 1 Each Capsule 1,200 Mg PO BID Cartia Xt (Diltiazem HCl) 120 Mg Cap.er.24h 120 Mg PO DAILY PRN may take when elevated heartbeat Magox 400 (Magnesium Oxide) 400 Mg Tablet 400 Mg PO DAILY Buspirone HCl 10 Mg Tablet 10 Mg PO BID Levocetirizine Dihydrochloride 5 Mg Tablet 5 Mg PO DAILY PRN Raloxifene HCl 60 Mg Tablet 60 Mg PO DAILY Fenofibrate (Fenofibrate,Micronized) 200 Mg Capsule 200 Mg PO DAILY Omeprazole 40 Mg Capsule.dr 40 Mg PO DAILY Enalapril Maleate 20 Mg Tablet 20 Mg PO DAILY Alprazolam 1 Mg Tablet 1 Mg PO BID Eliquis (Apixaban) 5 Mg Tablet 5 Mg PO BID Zoloft (Sertraline HCl) 50 Mg Tablet 50 Mg PO DAILY Instructions to patient/family Please see electronic discharge instructions given to patient. Clinical Quality Measures DVT/VTE Risk/Contraindication: Risk Factor Score Per Nursin RFS Level Per Nursing on Admit: 2=Moderate Copy Copies To 1: RENÉ PRICE MD; VALENCIA WILSON KATELYN M MD Dec 08, 2017 16:14
[2017-12-09] MEDS ORDERED: SOTA80TA PO (15:03)
== END 2017-12-08 12:12 | disposition home or self-care (01) | DRG 310 ==
LOC: EDUNIT# 14:04 → ER 14:05 → ICU 15:41 → 4TH 12-04 13:40
PROVIDERS: ADMIT Internal Medicine; ATTEND Internal Medicine
PROC: 5A2204Z Restoration of Cardiac Rhythm, Single (ICD-10-PCS; principal; 2017-12-03)
DX: I48.92 Unspecified atrial flutter (principal); I48.0 Paroxysmal atrial fibrillation; I47.2 Ventricular tachycardia; I95.1 Orthostatic hypotension; S99.811A Other specified injuries of right ankle, initial encounter; I10 Essential (primary) hypertension; I25.10 Atherosclerotic heart disease of native coronary artery without angina pectoris; E78.5 Hyperlipidemia, unspecified; K21.9 Gastro-esophageal reflux disease without esophagitis; I65.23 Occlusion and stenosis of bilateral carotid arteries; E05.90 Thyrotoxicosis, unspecified without thyrotoxic crisis or storm; M19.91 Primary osteoarthritis, unspecified site; M54.9 Dorsalgia, unspecified; F41.9 Anxiety disorder, unspecified; F32.9 Major depressive disorder, single episode, unspecified; I08.1 Rheumatic disorders of both mitral and tricuspid valves; W19.XXXA Unspecified fall, initial encounter; Y92.008 Other place in unspecified non-institutional (private) residence as the place of occurrence of the external cause; Z79.01 Long term (current) use of anticoagulants; Z96.653 Presence of artificial knee joint, bilateral
CPT/HCPCS: 36415; 71045; 73630; 78452; 80048; 80053; 83735; 84484; 85025; 93005; 93017; 93041; 96361; 96365

== ENCOUNTER 2017-12-08 22:02 | Emergency (ER) | payer MEDICARE, OTHER ==
[~2017-12-08] VITALS: Ht 160 cm; Wt 72.2 kg
[~2017-12-08 22:02] MED LIST changes: +BIOT5000 PO; +FISH1CAP15 PO; +Sotalol Hcl PO; +VITA400C60 PO
--- OUTSIDE RECORDS SUMMARY | 2017-12-08 22:07 | XMS REPORT | Continuity of Care Document ---
Author Author [employer] Organization [facility] Address Unknown Phone Unavailable Care Team Providers Care Fiction And Nonfiction Author Name Role Phone [employer] Unavailable Unavailable Problems Medications Allergies, Adverse Reactions, Alerts Immunizations Results Vital Signs Encounters Location Location Details Encounter Type Encounter Number Reason For Visit Attending Provider ADM Date DC Date Status Source OUTPATIENT [id number] BRODY RUSSELL 11/24/2017 11/24/2017 Active [facility] O Active [facility] Procedures Plan of Care Social History Assessment and Plan Family History Advance Directives Functional Status
--- OUTSIDE RECORDS SUMMARY | 2017-12-08 22:08 | XMS REPORT | Encounter Summary ---
Author Author [facility] Organization [facility] Address Unknown Phone Unavailable Care Team Providers Care Washery Engineer Name Role Phone PCP Unavailable Reason for Referral * CTA Procedure Status Reason Specialty Diagnoses / Referred By Referred To Procedures Contact Contact No Auth Needed Cardiology Diagnoses Vicente Coulter Bhg Card Nuclear Atrial [address] fibrillation, [address] [place], [place] ([facility]) [place] [id number] [place], [place] Phone: [place] [phone] [address] CARDIAC Phone: STRUCTURE WO/W [phone] CONT * CTA Procedure Status Reason Specialty Diagnoses / Referred By Referred To Procedures Contact Contact New Request Cardiology Diagnoses Vicente Coulter Bhg Card Nuclear Atrial [address] fibrillation, [address] [place], [place] ([facility]) [place] [id number] [place], [place] Phone: [place] [phone] [address] Phone: CARDIAC [phone] Encounter Details Date Type Department Care Team Description 11/27/2017 Orders Only [facility] Gloria Verma, DIANE Atrial fibrillation, [address] unspecified type ([facility]) [place] [address] Social History Tobacco Use Types Packs/Day Years [...]
--- OUTSIDE RECORDS SUMMARY | 2017-12-08 22:08 | XMS REPORT | Encounter Summary ---
Author Author [facility] Organization [facility] Address Unknown Phone Unavailable Care Team Providers Care Cigar Head Holer Name Role Phone PCP Unavailable Reason for Visit * Reason Comments New Patient A-fib; Cardioverted 11/21/16; Ref by Dr. Price Encounter Details Date Type Department Care Team Description 11/24/[address] [facility] Cardiology Vicente Coulter MD New Patient (A-fib; [address] Cardioverted 11/21/16; Ref [address] Price) [place] [address] [place] [address] [phone] Social History Tobacco Use Types Packs/Day Years Used Date Never Smoker Smokeless Tobacco: Never Used Alcohol Use Drinks/Week oz/Week Comments Yes 1 Glasses of 0.6 wine Sex Assigned at Date Recorded Not on file as of this encounter Last Filed Vital Signs Vital Sign Reading Time Taken Blood Pressure 140/90 11/24/2017 1:40 PM DOG TRAINER Pulse 60 11/24/2017 1:40 PM DOG TRAINER Temperature - - Respiratory Rate - - Oxygen Saturation - - Inhaled Oxygen - - Concentration Weight 72.1 kg (159 lb) 11/24/2017 1:40 PM DOG TRAINER Height 160 cm (5' 3") 11/24/2017 1:40 PM DOG TRAINER Body Mass Index 28.17 11/24/2017 1:40 PM DOG TRAINER in this encounter Instructions * Patient Instructions - Alethea Rader RN - 11/24/2017 2:00 PM DOG TRAINER call regarding your decision regarding the ablation after you talk with Dr Santos In order to provide you the best care possible we ask that you follow up as below: For NON-URGENT questions please contact us through your [facility] account. For all medication refills please contact your pharmacy or send a request through [facility]. For all questions that may need to be addressed urgently please call the nursing triage line at [phone] Friday - Friday 8-5 only. Please leave a detailed message with your name, date of , and reason for your call. To schedule an appointment call [phone]. Please allow 10-15 business days for the results of any testing to be reviewed. Please call our office if you have not heard from a nurse within this time frame. in this encounter Progress Notes * Vicente Coulter MD - 11/24/2017 2:00 PM DOG TRAINER Formatting of this note may be different from the original. Date of Service: 11/24/2017 Mary Roth is a 72 y.o. female. HPI I had the pleasure of seeing your patient Mary Roth in the [facility] as a part of the [facility] office today for initial Electrophysiolgy Consultation regarding her Paroxysmal Atrial Fibrillation. She is typically followed and was referred by my friend and colleague Dr. Price , her primary manager of recruiting, in [facility]. Ms. Roth is an exceptionally pleasant 72 [...] by duplex 05/2017Dr. Price. She has a [id number] score of 3: Female, HTN, and age [...] underwent AFIB Ablation by Dr. Kelly in [place], [place] -- Post AFIB Ablation--unclear what antiarrhythmic [...] her cardioversion for her persistent AFIB at [facility] in [facility] on 11/21/17 and has had [...] to include, but not limited to: , [place], stroke, cardiac perforation, pulmonary vein stenosis, diaphragmatic [...] was done again by Dr. Kelly in [place] in February 2016 -- Obtain a ROSIO [...] as the inferior leads. No preexcitation noted. Jewel Tonedtronic Reveal LinQ Implantable Looping Monitor Full device [...] In fact ultimately she underwent cardioversion [facility] on 11/21/17 and has had no recurrent [...]
--- OUTSIDE RECORDS SUMMARY | 2017-12-08 22:08 | XMS REPORT | Encounter Summary ---
Author Author [facility] Organization [facility] Address Unknown Phone Unavailable Care Team Providers Care Food Truck Caterer Name Role Phone PCP Unavailable Encounter Details Date Type Department Care Team Description 11/24/2017 [facility] Cardiology Vicente Coulter MD Encounter [address] [place] [address] [place] [address] [place] [address] [phone] Social History Tobacco Use Types Packs/Day Years [...] Procedure Pass Cardiology as of this encounter Results * DEVICE EVALUATION - ILR (11/24/2017 1:14 PM) Component Value Ref Range Generator Model # [id number] Generator Serial # [id number] Generator Implnat Date 01/03/16 Device Implanted By [facility] EP Device Followed By Other ILR Battery Status Good ILR Symptom Events Since 0 Last Interrogation ILR Symptom Lifetime 0 Events as of ILR Symptom Duration Four 7.5 min Episodes ILR Tachy Events Since 0 Last Interrogation ILR Tachy Lifetime Events 103 as of ILR Tachy Rate 162 ILR Tachy Duration 16 ILR Pause Events Since 0 Last Interrogation ILR Pause Lifetime Events 12 as of ILR Pause Duration 3 ILR Wilbert Events Since 0 Last Interrogation ILR Wilbert Lifetime Events 22 as of ILR Wilbert Rate 30 ILR Wilbert Duration 4 ILR AT Events Since Last n/a Interrogation ILR AT Lifetime Events as n/a of ILR AF Events Since Last 9 Interrogation ILR AF Lifetime Events as 660 of ILR AF Rate AF only ILR AF Duration episodes > 6 mins ILR Percent Time in AT/AF 1.1% Events Since Last Interrogation ILR Presenting ECG Strip VS at 56 bpm EP Device Followed by Dr. Price Name Device [place] Carelink Express Transmitter Compatible Known Diagnosed AFib Yes On Anticoagulation Yes Generator Certified Medical Technician Assistant The Daily Caller Specimen Performing Laboratory OTHER OUTSIDE LAB Narrative 11/24/2017 - ILR LINQ interrogation at the [facility] office.Pt is new to clinic and provider for possible AF ablation.Pt reports getting a cardioversion completed on 11/21/17 at [facility] in [place], [place] where she also follows with primary Cloth Bin Packer, Dr. Price. Events noted since 11/13/17 remote: AF events #621 through #629 lasting 6 min to 24 min.Most recent on 11/21/17 starting at 6:48am - no events noted since.Available EGM's show regular to irregular QRS complex with medium V-rates at 122-150 bpm, some P-waves hard to discern.Pt reports being on Eliquis. Report given to MPE in clinic. EG in this encounter Visit Diagnoses Diagnosis Paroxysmal atrial fibrillation (HCC) Atrial fibrillation in this encounter
--- OUTSIDE RECORDS SUMMARY | 2017-12-08 22:08 | XMS REPORT | Encounter Summary ---
Author Author [facility] Organization [facility] Address Unknown Phone Unavailable Care Team Providers Care Electrical Continuity Inspector Name Role Phone PCP Unavailable Reason for Visit * Reason Comments Other Cancel ablation Encounter Details Date Type Department Care Team Description 12/02/2017 Telephone [facility] Cardiology Katharine Crum RN Other (Cancel ablation) [address] [facility] [address] [place] [address] Social History Tobacco Use Types Packs/Day Years Used Date Never Smoker Smokeless Tobacco: Never Used Alcohol Use Drinks/Week oz/Week Comments Yes 1 Glasses of 0.6 wine Sex Assigned at Date Recorded Not on file as of this encounter Miscellaneous Notes * Telephone Encounter - Alethea Rader RN - 12/02/2017 6:56 PM FORMAL SERVICE WAITER notified PAT and CCTA scheduling that patient needs to cancel 12/10 appts (Dr Coulter appt previously cancelled) she will call back to reschedule, offered dates in January that Dr Coulter was available at this time but did relay that she should discuss couple of potential dates with transportation res sheet had not been sent to EP lab at this time. orders have not been entered * Telephone Encounter - Katharine Crum RN - 12/02/2017 1:51 PM FORMAL SERVICE WAITER Mary called us back. I was able to speak with her. She would like to cancel her ablation due to transportation. She will work on arranging transportation and let us know when she wants to reschedule. DIANE Hill * Telephone Encounter - Katharine Crum RN - 12/02/2017 12:12 PM FORMAL SERVICE WAITER I called the patient back as requested to discuss the below. I had to leave a message for her to call us back. Notified DIANE Healy. DIANE Hill ----- Message from Daisy Osman sent at 12/02/2017 11:58 AM FORMAL SERVICE WAITER ----- Regarding: MPE,Cancel ablation Patient states she is going to have to cancel her ablation. Home is the call back in this encounter Plan of Treatment Date Type Specialty Care Team Description 11/27/2017 Procedure Pass Cardiology 11/27/2017 Procedure Pass Cardiology as of this encounter Visit Diagnoses Not on filein this encounter
--- OUTSIDE RECORDS SUMMARY | 2017-12-08 22:08 | XMS REPORT | Encounter Summary ---
Author Author [facility] Organization [facility] Address Unknown Phone Unavailable Care Team Providers Care Equipment Maintenance Engineer Name Role Phone PCP Unavailable Reason for Visit * Reason Comments Appointment botox Encounter Details Date Type Department Care Team Description 10/28/2017 Telephone [facility] Silverio Walker MD Appointment (botox) Physicians - ENT [address] FLO[address] [place] [address] OFFICE BLDG [phone] [place] [address] Social History Tobacco Use Types Packs/Day Years Used Date Never Smoker Smokeless Tobacco: Never Used Alcohol Use Drinks/Week oz/Week Comments Yes 1 Glasses of 0.6 wine Sex Assigned at Date Recorded Not on file as of this encounter Miscellaneous Notes * Telephone Encounter - Brielle Raya RN - 10/28/2017 10:51 AM MERCHANT SEAMAN Returned patient call; she wants to schedule [...]
--- OUTSIDE RECORDS SUMMARY | 2017-12-08 22:08 | XMS REPORT | Encounter Summary ---
Author Author [facility] Organization [facility] Address Unknown Phone Unavailable Care Team Providers Care Counseling Services Manager Name Role Phone PCP Unavailable Reason for Visit * Reason Comments Other cancel cta per Alethea Rader RN Encounter Details Date Type Department Care Team Description 12/03/2017 Telephone [facility] Cardiology Gloria Verma RN Other ( cancel cta per [address] [place] RN) [place] [address] Social History Tobacco Use Types Packs/Day Years Used Date Never Smoker Smokeless Tobacco: Never Used Alcohol Use Drinks/Week oz/Week Comments Yes 1 Glasses of 0.6 wine Sex Assigned at Date Recorded Not on file as of this encounter Miscellaneous Notes * Telephone Encounter - Gloria Verma RN - 12/03/2017 12:33 PM CONTROL DIRECTOR ----- Message from Alethea Rader RN sent at 12/02/2017 6:55 PM CONTROL DIRECTOR ----- Regarding: pls cancel her ccta for 12/10 she will call back to reschedule. thank you in this encounter Plan of Treatment Date Type Specialty Care Team Description 11/27/2017 Procedure Pass Cardiology 11/27/2017 Procedure Pass Cardiology as of this encounter Visit Diagnoses Not on filein this encounter
--- OUTSIDE RECORDS SUMMARY | 2017-12-08 22:08 | XMS REPORT | Encounter Summary ---
Author Author [facility] Organization [facility] Address Unknown Phone Unavailable Care Team Providers Care Label Pinker Name Role Phone PCP Unavailable Reason for Visit * Reason Comments Other cta requested Encounter Details Date Type Department Care Team Description 11/27/2017 Telephone [facility] Cardiology Gloria Verma RN Other ( cta requested) [address] [place] [address] Social History Tobacco Use Types Packs/Day Years Used Date Never Smoker Smokeless Tobacco: Never Used Alcohol Use Drinks/Week oz/Week Comments Yes 1 Glasses of 0.6 wine Sex Assigned at Date Recorded Not on file as of this encounter Miscellaneous Notes * Telephone Encounter - Gloria Verma RN - 11/27/2017 12:21 PM MISSILE AND MISSILE CHECKOUT TECHNICIAN ----- Message from Alethea Rader RN sent at 11/26/2017 3:32 PM MISSILE AND MISSILE CHECKOUT TECHNICIAN ----- Regarding: pre AF ablation ROSIO she [...]
--- OUTSIDE RECORDS SUMMARY | 2017-12-08 22:08 | XMS REPORT | Encounter Summary ---
Author Author [facility] Organization [facility] Address Unknown Phone Unavailable Care Team Providers Care Valet Parker Name Role Phone PCP Unavailable Reason for Visit * Reason Comments Follow-up Phone Call attempted to return call, phone cut off Encounter Details Date Type Department Care Team Description 11/25/2017 Telephone [facility] Cardiology Alethea Rader RN Follow- up Phone Call [address] (attempted to return [address] call, phone cut off) [place], [place] [id number] Social History Tobacco Use Types Packs/Day Years Used Date Never Smoker Smokeless Tobacco: Never Used Alcohol Use Drinks/Week oz/Week Comments Yes 1 Glasses of 0.6 wine Sex Assigned at Date Recorded Not on file as of this encounter Miscellaneous Notes * Telephone Encounter - Alethea Rader RN - 11/25/2017 12:48 PM AIR TRAFFIC CONTROL OPERATOR received message Mary called back however, no answer with return call * Telephone Encounter - Alethea Rader RN - 11/25/2017 12:48 PM AIR TRAFFIC CONTROL OPERATOR Formatting of this note may be different from the original. [facility] Call patient Received: Today ARACELIS Rainey [...] [facility] travel for son Mary will c/b and let us know * Telephone Encounter - Alethea Rader RN - 11/25/2017 9:11 AM AIR TRAFFIC CONTROL OPERATOR ----- Message from Yesy Tovar LPN sent at 11/25/2017 9:04 AM AIR TRAFFIC CONTROL OPERATOR ----- Regarding: MPE- 2 questions VM from [...]
--- OUTSIDE RECORDS SUMMARY | 2017-12-08 22:08 | XMS REPORT | Clinical Summary ---
Author Author [facility] Organization [facility] Address Unknown Phone Unavailable Care Team Providers Care Material Yard Clerk Name Role Phone PCP Unavailable Source Comments Some departments are not documenting in the electronic medical record. If you do not see the information that you expected, contact Release of Information in the Health Information Management department at [phone] for further assistance in locating additional records.[facility] Allergies Active Allergy Reactions Severity Noted [...] Encounters Date Type Specialty Care Team Description 12/03/2017 Telephone Cardiology Gloria Verma RN Other (cancel cta per Alethea Rader RN) 12/02/2017 Telephone Cardiology Katharine Crum RN Other [...] Cardioverted 11/21/16; Ref by Dr. Price) 11/24/2017 [facility] Cardiology Vicente Coulter MD Encounter 11/21/2017 Telephone [...] Taken Blood Pressure 140/90 11/24/2017 1:40 PM STAFF ASSISTANT Pulse 60 11/24/2017 1:40 PM STAFF ASSISTANT Temperature - - Respiratory Rate - - Oxygen Saturation - - Inhaled Oxygen - - Concentration Weight 72.1 kg (159 lb) 11/24/2017 1:40 PM STAFF ASSISTANT Height 160 cm (5' 3") 11/24/2017 1:40 PM STAFF ASSISTANT Body Mass Index 28.17 11/24/2017 1:40 PM STAFF ASSISTANT Plan of Treatment Date Type Specialty Care Team Description 11/27/2017 Procedure Pass Cardiology 11/27/2017 Procedure Pass Cardiology Health Maintenance Due Date Last Done Comments HEPATITIS C SCREENING 1946 PHYSICAL (COMPREHENSIVE) 1953 EXAM PERTUSSIS VACCINE 1957 TETANUS VACCINE 1963 BREAST CANCER SCREENING 1986 COLORECTAL CANCER 1996 SCREENING SHINGLES VACCINE 2006 OSTEOPOROSIS SCREENING 2011 PREVNAR/PNEUMOVAX (#1) 2011 INFLUENZA VACCINE 06/17/2017 Results * DEVICE EVALUATION - ILR (11/24/2017 1:14 PM) Component Value Ref Range Generator Model # [id number] Generator Serial # [id number] Generator Implnat Date 01/03/16 Device Implanted By [facility] EP Device Followed By Other ILR Battery [...] Device Followed by Dr. Price Name Device [place] Carelink Express Transmitter Compatible Known Diagnosed AFib Yes On Anticoagulation Yes Generator Street Superintendent Media Redefined Specimen Performing Laboratory OTHER OUTSIDE LAB Narrative 11/24/2017 - ILR LINQ interrogation at the [facility] office.Pt is new to clinic and provider for possible AF ablation.Pt reports getting a cardioversion completed on 11/21/17 at [facility] in [place], [place] where she also follows with primary Instrument And Control Technician, Dr. Price. Events noted since 11/13/17 remote: AF events #621 through #629 lasting 6 min to 24 min.Most recent on 11/21/17 starting at 6:48am - no events noted since.Available EGM's show regular to irregular QRS complex with medium V-rates at 122-150 bpm, some P-waves hard to discern.Pt reports being on Eliquis. Report given to MPE in clinic. EG from Last 3 Months
--- OUTSIDE RECORDS SUMMARY | 2017-12-08 22:08 | XMS REPORT | Encounter Summary ---
Author Author [facility] Organization [facility] Address Unknown Phone Unavailable Care Team Providers Care Director Clinical Information Services Name Role Phone PCP Unavailable Reason for Visit * Reason Comments Appointment pre LAAA testing and procedure dates Encounter Details Date Type Department Care Team Description 11/26/2017 Telephone [facility] Cardiology Alethea Rader, RN Appointment (pre LAAA [address] testing and procedure [address] dates) [place] [address] Social History Tobacco Use Types Packs/Day Years Used Date Never Smoker Smokeless Tobacco: Never Used Alcohol Use Drinks/Week oz/Week Comments Yes 1 Glasses of 0.6 wine Sex Assigned at Date Recorded Not on file as of this encounter Miscellaneous Notes * Telephone Encounter - Alethea Rader, RN - 11/26/2017 3:28 PM WARP DRAWER talked with Mrs Roth, she would like [...]
--- OUTSIDE RECORDS SUMMARY | 2017-12-08 22:08 | XMS REPORT | Encounter Summary ---
Author Author [facility] Organization [facility] Address Unknown Phone Unavailable Care Team Providers Care Resource Forester Name Role Phone PCP Unavailable Encounter Details Date Type Department Care Team Description 11/27/2017 Procedure Pass [facility] Cardiology [address] [place] [address] Social History Tobacco Use Types Packs/Day Years [...]
--- OUTSIDE RECORDS SUMMARY | 2017-12-08 22:08 | XMS REPORT | Encounter Summary ---
Author Author [facility] Organization [facility] Address Unknown Phone Unavailable Care Team Providers Care Programmer Or Analyst Name Role Phone PCP Unavailable Encounter Details Date Type Department Care Team Description 11/28/2017 Orders Only [facility] Cardiology Elina Grijalva RN Atrial fibrillation, [address] unspecified type (HCC) [place] [address] (Primary Dx) [phone] Social History Tobacco Use Types Packs/Day Years [...]
--- OUTSIDE RECORDS SUMMARY | 2017-12-08 22:08 | XMS REPORT | Encounter Summary ---
Author Author [facility] Organization [facility] Address Unknown Phone Unavailable Care Team Providers Care Delivery Architect Name Role Phone PCP Unavailable Encounter Details Date Type Department Care Team Description 11/21/2017 Telephone [facility] Cardiology Alethea Rader, RN [address] [place] [address] Social History Tobacco Use Types Packs/Day Years Used Date Never Smoker Smokeless Tobacco: Never Used Alcohol Use Drinks/Week oz/Week Comments Yes 1 Glasses of 0.6 wine Sex Assigned at Date Recorded Not on file as of this encounter Miscellaneous Notes * Telephone Encounter - Alethea Rader RN - 11/25/2017 10:43 AM COOKING INSTRUCTOR Formatting of this note may be different [...] Alethea Rader RN - 11/21/2017 10:40 AM COOKING INSTRUCTOR offered friday, november 24, 1:30 to interrogate linq and 2:[address] Coulter. Mrs Roth having cardioversion today by Dr Santos his office will fax records shelby to the EP right fax she does have an ilr so will schedule her before her appt * Telephone Encounter - Alethea Rader RN - 11/21/2017 10:37 AM COOKING INSTRUCTOR ----- Message from Yesy Tovar LPN sent at 11/21/2017 10:22 AM COOKING INSTRUCTOR ----- Regarding: MPE- appointmet SHELBY VM on triage line from Stephany with Dr. Beasley office # [phone]. [address] Beasley talked to MPE [...] Generator Model # [id number] Generator Serial # [id number] Generator Implnat Date 01/03/16 Device Implanted By [facility] EP Device Followed By Other ILR [...] Device Followed by Dr. Price Name Device [place] Carelink Express Transmitter Compatible Known Diagnosed AFib Yes On Anticoagulation Yes Generator Photovoltaic Installation Technician [email or web address] Specimen Performing Laboratory OTHER OUTSIDE LAB Narrative 11/24/2017 - ILR LINQ interrogation at the office.Pt is new to clinic and provider for possible AF ablation.Pt reports getting a cardioversion completed on 11/21/17 at [facility] in [place], [place] where she also follows with primary Reverse Unit Operator, Dr. Price. Events noted since 11/13/17 remote: [...]
--- OUTSIDE RECORDS SUMMARY | 2017-12-08 22:08 | XMS REPORT | Encounter Summary ---
Author Author [facility] Organization [facility] Address Unknown Phone Unavailable Care Team Providers Care Internet Retailer Name Role Phone PCP Unavailable Encounter Details Date Type Department Care Team Description 11/27/2017 Procedure Pass [facility] Cardiology [address] [place] [address] Social History Tobacco Use Types Packs/Day Years [...]
--- OUTSIDE RECORDS SUMMARY | 2017-12-08 22:09 | XMS REPORT | Encounter Summary ---
Author Author [facility] Organization [facility] Address Unknown Phone Unavailable Care Team Providers Care Plant Senior Manager Name Role Phone PCP Unavailable Reason for Visit * Reason Comments Appointment botox Encounter Details Date Type Department Care Team Description 10/28/2017 Telephone [facility] Silverio Walker MD Appointment (botox) Physicians - ENT [address] FLO[address] [place] [address] OFFICE BLDG [phone] [place] [address] Social History Tobacco Use Types Packs/Day Years Used Date Never Smoker Smokeless Tobacco: Never Used Alcohol Use Drinks/Week oz/Week Comments Yes 1 Glasses of 0.6 wine Sex Assigned at Date Recorded Not on file as of this encounter Miscellaneous Notes * Telephone Encounter - Brielle Raya RN - 10/28/2017 9:22 AM SEED YEAST OPERATOR Returned patient call. Patient called this [...]
--- OUTSIDE RECORDS SUMMARY | 2017-12-08 22:09 | XMS REPORT | Encounter Summary ---
Author Author [facility] Organization [facility] Address Unknown Phone Unavailable Care Team Providers Care Seating Captain Name Role Phone PCP Unavailable Reason for Visit * Reason Comments Appointment Encounter Details Date Type Department Care Team Description 10/27/2017 Telephone [facility] Kayla Baldwin MD Appointment Physicians - ENT [address] FLO[address] [facility] [place] [address] OFFICE BLDG [phone] [place] [address] Social History Tobacco Use Types Packs/Day Years Used Date Never Smoker Smokeless Tobacco: Never Used Alcohol Use Drinks/Week oz/Week Comments Yes 1 Glasses of 0.6 wine Sex Assigned at Date Recorded Not on file as of this encounter Miscellaneous Notes * Telephone Encounter - Carmel Monzon LPN - 10/29/2017 8:30 AM STERILE SUPERVISOR Ms. Roth calling to cancel her appointment scheduled for Friday12/05/16 due to transportation issues. She cannot find a ride for any Friday appointments. Pt appears to have appt with Dr. Walker in January. Ms. Roth denies further concerns at this time. * Telephone Encounter - Carmel Monzon LPN - 10/27/2017 4:53 PM STERILE SUPERVISOR Ms. Roth calling to request appointment for [...]
--- OUTSIDE RECORDS SUMMARY | 2017-12-08 22:09 | XMS REPORT | Encounter Summary ---
Author Author [facility] Organization [facility] Address Unknown Phone Unavailable Care Team Providers Care Bowling Ball Patcher Name Role Phone PCP Unavailable Reason for Visit * Reason Comments Appointment Request botox Encounter Details Date Type Department Care Team Description 10/07/2017 Telephone [facility] Silverio Walker MD Appointment Request Physicians - ENT [address] (botox) 3RD FLOOR POD C [place] [address] [place] [address] OFFICE BLDG [phone] [place] [address] Social History Tobacco Use Types Packs/Day Years Used Date Never Smoker Smokeless Tobacco: Never Used Alcohol Use Drinks/Week oz/Week Comments Yes 1 Glasses of 0.6 wine Sex Assigned at Date Recorded Not on file as of this encounter Miscellaneous Notes * Telephone Encounter - Brielle Raya RN - 10/07/2017 8:22 AM REVOLVING INVENTORY CLERK Returned patient call. She requested an [...]
--- OUTSIDE RECORDS SUMMARY | 2017-12-08 22:13 | XMS REPORT | Continuity of Care Document ---
Author Author [facility] Address Unknown Phone Unavailable Allergies Active Description Code Type Severity Reaction Onset Reported/Identified Relationship to Patient Clinical Status Yes No Known Drug Allergies [id number] Drug Allergy Unknown N/A 08/02/2008 Yes No Known Allergies No Known Allergies Drug Allergy Unknown N/A 2015 Yes amoxicillin [id number] Drug Allergy Unknown hives 11/09/2016 Yes clavulanic acid [id number] Drug Allergy Unknown hives 11/09/2016 Yes Sulfa (Sulfonamide Antibiotics) [id number] Drug Allergy Severe HIVES 2016 Medications There [...] POSTMENOPAUSAL ATROPHIC 07/30/2010 HUMAIRA ENCISO APRN 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, 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 09/05/2010 HUMAIRA ENCISO APRN 627.1 POSTMENOPAUSAL BLEEDING 09/05/2010 HUMAIRA ENCISO APRN 795.01 Cerv Pap Smear (+) Atyp Squamous Cells Undetermined Signif 10/17/2010 HUMAIRA ENCISO APRN V58.69 LONG-TERM (CURRENT) USE OF OTHER MEDICATIONS 11/27/2010 Ot 784.40 11/27/2010 Ot V57.3 01/22/2011 HUMAIRA ENCISO APRN 729.1 MYALGIA AND MYOSITIS UNSPECIFIED 03/14/2011 ENCISO ENGINE INSPECTOR, HUMAIRA R 272.4 OTHER AND UNSPECIFIED HYPERLIPIDEMIA [...] MD Ot I25.10 ATHSCL HEART DISEASE OF [place] CORONARY 10/30/2015 RENÉ GR MD Ot K21.9 GASTRO-ESOPHAGEAL REFLUX DISEASE WITHOUT 10/30/2015 RENÉ GR MD Ot R00.2 PALPITATIONS 10/30/2015 RENÉ GR MD Ot R07.89 OTHER CHEST PAIN 10/30/2015 RENÉ GR MD Ot Z79.899 OTHER [facility] TECH (CURRENT) DRUG THERAPY 11/24/2015 YUVAL ERIC MD Ot M47.816 SPONDYLOSIS W/O MYELOPATHY OR RADICULOPA 11/24/2015 YUVAL ERIC MD Ot M53.3 SACROCOCCYGEAL DISORDERS, NOT ELSEWHERE 11/24/2015 YUVAL ERIC MD Ot 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 SYNDROME, NOT ELSEWHERE 11/24/2015 YUVAL ERIC MD Ot Z79.899 OTHER [facility] TECH (CURRENT) DRUG THERAPY 12/01/2015 YUVAL ERIC MD Ot M47.816 SPONDYLOSIS W/O MYELOPATHY OR RADICULOPA 12/01/2015 YUVAL ERIC MD, Ot M53.3 SACROCOCCYGEAL DISORDERS, NOT ELSEWHERE 12/01/2015 YUVAL ERIC MD, Ot 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 SYNDROME, NOT ELSEWHERE 12/01/2015 YUVAL ERIC MD, Ot Z79.899 OTHER [facility] TECH (CURRENT) DRUG THERAPY 01/03/2016 RENÉ GR MD Ot E78.5 HYPERLIPIDEMIA, UNSPECIFIED 01/03/2016 RENÉ GR MD Ot I10 ESSENTIAL (PRIMARY) HYPERTENSION 01/03/2016 RENÉ GR MD Ot R00.2 PALPITATIONS 01/03/2016 RENÉ GR MD Ot R55 SYNCOPE AND COLLAPSE 01/03/2016 RENÉ GR MD Ot Z79.899 OTHER [facility] (CURRENT) DRUG THERAPY 02/21/2016 RENÉ GR MD Ot E78.5 HYPERLIPIDEMIA, UNSPECIFIED 02/21/2016 RENÉ GR MD Ot F41.9 ANXIETY DISORDER, UNSPECIFIED 02/21/2016 RENÉ GR MD Ot I10 ESSENTIAL (PRIMARY) HYPERTENSION 02/21/2016 RENÉ GR MD Ot I25.10 ATHSCL HEART DISEASE OF [place] CORONARY 02/21/2016 RENÉ GR MD Ot I42.9 [...] 04/12/2016 YUVAL ERIC MD, Ot Z79.899 OTHER [facility] (CURRENT) DRUG THERAPY 04/24/2016 YUVAL ERIC MD, Ot M47.816 SPONDYLOSIS W/O MYELOPATHY OR RADICULOPA 04/24/2016 YUVAL ERIC MD, Ot M51.16 INTERVERTEBRAL DISC DISORDERS W RADICULO 04/24/2016 YUVAL ERIC MD, Ot M53.3 SACROCOCCYGEAL DISORDERS, NOT ELSEWHERE 04/24/2016 YUVAL ERIC MD, Ot M70.62 TROCHANTERIC BURSITIS, LEFT HIP 04/24/2016 YUVAL ERIC MD, Ot 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 SYNDROME, NOT ELSEWHERE 04/24/2016 YUVAL ERIC MD, Ot Z79.899 OTHER [facility] TECH (CURRENT) DRUG THERAPY 11/09/2016 SHANNON FOSTER Ot [...] MD Ot I25.10 ATHSCL HEART DISEASE OF [place] CORONARY 09/24/2017 RENÉ GR MD Ot I48.0 [...] IMMUNIZATION 09/24/2017 RENÉ GR MD, Ot Z79.01 [facility] TECH (CURRENT) USE OF ANTICOAGULANT 09/24/2017 RENÉ GR [...] HEADACHE 10/07/2017 PATRIZIA TORRES MD, Ot Z79.01 [facility] TECH (CURRENT) USE OF ANTICOAGULANT 10/07/2017 PATRIZIA TORRES [...] 11/06/2017 Heron SINGH MD Ot Z79.899 OTHER [facility] (CURRENT) DRUG THERAPY 11/06/2017 Heron SINGH MD [...] FRANCISCO HONG, Heron GOYAL Ot Z79.899 OTHER [facility] (CURRENT) DRUG THERAPY 11/09/2017 Heron SINGH MD [...] HEADACHE 11/18/2017 ALTON RICHARDS MD Ot Z79.01 [facility] (CURRENT) USE OF ANTICOAGULANT 11/18/2017 ALTON RICHARDS [...] MD Ot R00.2 PALPITATIONS 11/24/2017 RENÉ GR MD Ot Z79.899 OTHER [facility] (CURRENT) DRUG THERAPY 11/27/2017 RENÉ GR MD Ot I10 ESSENTIAL (PRIMARY) HYPERTENSION 11/27/2017 RENÉ GR MD Ot I48.0 PAROXYSMAL ATRIAL FIBRILLATION 11/27/2017 RENÉ GR MD Ot R00.0 TACHYCARDIA, UNSPECIFIED 11/27/2017 RENÉ GR MD Ot R00.2 PALPITATIONS 11/27/2017 RENÉ GR MD Ot Z79.899 OTHER [facility] (CURRENT) DRUG THERAPY 12/03/2017 SARAH ANN MD Ot E05.90 THYROTOXICOSIS, UNSP WITHOUT THYROTOXIC 12/03/2017 SARAH ANN MD Ot E78.5 HYPERLIPIDEMIA, UNSPECIFIED 12/03/2017 SARAH ANN MD Ot F32.9 MAJOR DEPRESSIVE DISORDER, SINGLE EPISOD 12/03/2017 SARAH ANN MD Ot F41.9 ANXIETY DISORDER, UNSPECIFIED 12/03/2017 SARAH ANN MD Ot I08.1 RHEUMATIC DISORDERS OF BOTH [place] AND T 12/03/2017 SARAH ANN MD Ot I10 ESSENTIAL (PRIMARY) HYPERTENSION 12/03/2017 SARAH ANN MD Ot I25.10 ATHSCL HEART DISEASE OF [place] CORONARY 12/03/2017 SARAH ANN MD Ot I47.2 VENTRICULAR TACHYCARDIA 12/03/2017 SARAH ANN MD Ot I48.0 PAROXYSMAL ATRIAL FIBRILLATION 12/03/2017 SARAH ANN MD Ot I48.92 UNSPECIFIED ATRIAL FLUTTER 12/03/2017 SARAH ANN MD Ot I65.23 OCCLUSION AND STENOSIS OF [place]ILATERAL [place] 12/03/2017 SARAH ANN MD Ot K21.9 GASTRO-ESOPHAGEAL REFLUX DISEASE WITHOUT 12/03/2017 SARAH ANN MD Ot M19.91 PRIMARY OSTEOARTHRITIS, UNSPECIFIED SITE 12/03/2017 SARAH ANN MD Ot M54.9 DORSALGIA, UNSPECIFIED 12/03/2017 SARAH ANN MD Ot R55 SYNCOPE AND COLLAPSE 12/03/2017 SARAH ANN MD Ot S99.811A OTHER SPECIFIED INJURIES OF RIGHT ANKLE, 12/03/2017 SARAH ANN MD Ot W19.XXXA UNSPECIFIED FALL, INITIAL ENCOUNTER 12/03/2017 SARAH ANN MD Ot Y92.[address] [facility] (PRIVATE) 12/03/2017 SARAH ANN MD Ot Z79.01 [facility] (CURRENT) USE OF ANTICOAGULANT 12/03/2017 SARAH ANN MD Ot Z96.653 PRESENCE OF ARTIFICIAL KNEE JOINT, BILAT 12/04/2017 SARAH ANN MD Ot E05.90 THYROTOXICOSIS, UNSP WITHOUT THYROTOXIC 12/04/2017 SARAH ANN MD Ot E78.5 HYPERLIPIDEMIA, UNSPECIFIED 12/04/2017 SARAH ANN MD Ot F32.9 MAJOR DEPRESSIVE DISORDER, SINGLE EPISOD 12/04/2017 SARAH ANN MD Ot F41.9 ANXIETY DISORDER, UNSPECIFIED 12/04/2017 SARAH ANN MD Ot I08.1 RHEUMATIC DISORDERS OF BOTH [place] AND T 12/04/2017 SARAH ANN MD Ot I10 ESSENTIAL (PRIMARY) HYPERTENSION 12/04/2017 SARAH ANN MD Ot I25.10 ATHSCL HEART DISEASE OF [place] CORONARY 12/04/2017 SARAH ANN MD Ot I47.2 VENTRICULAR TACHYCARDIA 12/04/2017 SARAH ANN MD Ot I48.0 PAROXYSMAL ATRIAL FIBRILLATION 12/04/2017 SARAH ANN MD Ot I48.92 UNSPECIFIED ATRIAL FLUTTER 12/04/2017 SARAH ANN MD Ot I65.23 OCCLUSION AND STENOSIS OF [place]IL[place] 12/04/2017 SARAH ANN MD Ot K21.9 GASTRO-ESOPHAGEAL REFLUX DISEASE WITHOUT 12/04/2017 SARAH ANN MD Ot M19.91 PRIMARY OSTEOARTHRITIS, UNSPECIFIED SITE 12/04/2017 SARAH ANN MD Ot M54.9 DORSALGIA, UNSPECIFIED 12/04/2017 SARAH ANN MD Ot R55 SYNCOPE AND COLLAPSE 12/04/2017 SARAH ANN MD Ot S99.811A OTHER SPECIFIED INJURIES OF RIGHT ANKLE, 12/04/2017 SARAH ANN MD Ot W19.XXXA UNSPECIFIED FALL, INITIAL ENCOUNTER 12/04/2017 SARAH ANN MD, Ot Y92.[address] IN [facility] NON-INSTITUT (PRIVATE) 12/04/2017 SARAH ANN MD Ot Z79.01 [facility] (CURRENT) USE OF ANTICOAGULANT 12/04/2017 SARAH ANN MD Ot Z96.653 PRESENCE OF ARTIFICIAL KNEE JOINT, BILAT 12/04/2017 SARAH ANN MD Ot E05.90 THYROTOXICOSIS, UNS WITHOUT THYROTOXIC 12/04/2017 SARAH ANN MD Ot E78.5 HYPERLIPIDEMIA, UNSPECIFIED 12/04/2017 SARAH ANN MD Ot F32.9 MAJOR DEPRESSIVE DISORDER, SINGLE EPISOD 12/04/2017 SARAH ANN MD Ot F41.9 ANXIETY DISORDER, UNSPECIFIED 12/04/2017 SARAH ANN MD Ot I08.1 RHEUMATIC DISORDERS OF BOTH [place] AND T 12/04/2017 SARAH ANN MD Ot I10 ESSENTIAL (PRIMARY) HYPERTENSION 12/04/2017 SARAH ANN MD Ot I25.10 ATHSCL HEART DISEASE OF [place] CORONARY 12/04/2017 SARAH ANN MD Ot I47.2 VENTRICULAR TACHYCARDIA 12/04/2017 SARAH ANN MD Ot I48.0 PAROXYSMAL ATRIAL FIBRILLATION 12/04/2017 SARAH ANN MD Ot I48.92 UNSPECIFIED ATRIAL FLUTTER 12/04/2017 SARAH ANN MD Ot I65.23 OCCLUSION AND STENOSIS OF [place] 12/04/2017 SARAH ANN MD Ot K21.9 GASTRO-ESOPHAGEAL REFLUX DISEASE WITHOUT 12/04/2017 SARAH ANN MD Ot M19.91 PRIMARY OSTEOARTHRITIS, UNSPECIFIED SITE 12/04/2017 SARAH ANN MD Ot M54.9 DORSALGIA, UNSPECIFIED 12/04/2017 SARAH ANN MD Ot R55 SYNCOPE AND COLLAPSE 12/04/2017 SARAH ANN MD Ot S99.811A OTHER SPECIFIED INJURIES OF RIGHT ANKLE, 12/04/2017 SARAH ANN MD Ot W19.XXXA UNSPECIFIED FALL, INITIAL ENCOUNTER 12/04/2017 SARAH ANN MD Ot Y92.[address] [facility] NON-INSTITUT (PRIVATE) 12/04/2017 SARAH ANN MD Ot Z79.01 [facility] TECH (CURRENT) USE OF ANTICOAGULANT 12/04/2017 SARAH ANN MD, Ot Z96.653 PRESENCE OF ARTIFICIAL KNEE JOINT, BILAT 12/05/2017 SARAH ANN MD Ot E05.90 THYROTOXICOSIS, UNSP WITHOUT THYROTOXIC 12/05/2017 SARAH ANN MD Ot E78.5 HYPERLIPIDEMIA, UNSPECIFIED 12/05/2017 SARAH ANN MD Ot F32.9 MAJOR DEPRESSIVE DISORDER, SINGLE EPISOD 12/05/2017 SARAH ANN MD Ot F41.9 ANXIETY DISORDER, UNSPECIFIED 12/05/2017 SARAH ANN MD Ot I08.1 RHEUMATIC DISORDERS OF BOTH [place] AND T 12/05/2017 SARAH ANN MD Ot I10 ESSENTIAL (PRIMARY) HYPERTENSION 12/05/2017 SARAH ANN MD Ot I25.10 ATHSCL HEART DISEASE OF [place] CORONARY 12/05/2017 SARAH ANN MD Ot I47.2 VENTRICULAR TACHYCARDIA 12/05/2017 SARAH ANN MD Ot I48.0 PAROXYSMAL ATRIAL FIBRILLATION 12/05/2017 SARAH ANN MD, Ot I48.92 UNSPECIFIED ATRIAL FLUTTER 12/05/2017 SARAH ANN MD Ot I65.23 OCCLUSION AND STENOSIS OF [place] 12/05/2017 SARAH ANN MD Ot K21.9 GASTRO-ESOPHAGEAL REFLUX DISEASE WITHOUT 12/05/2017 SARAH ANN MD Ot M19.91 PRIMARY OSTEOARTHRITIS, UNSPECIFIED SITE 12/05/2017 SARAH ANN MD Ot M54.9 DORSALGIA, UNSPECIFIED 12/05/2017 SARAH ANN MD Ot R55 SYNCOPE AND COLLAPSE 12/05/2017 SARAH ANN MD Ot S99.811A OTHER SPECIFIED INJURIES OF RIGHT ANKLE, 12/05/2017 SARAH ANN MD Ot W19.XXXA UNSPECIFIED FALL, INITIAL ENCOUNTER 12/05/2017 SARAH ANN MD Ot Y92.[address] IN [place] NON-INSTITUT (PRIVATE) 12/05/2017 SARAH ANN MD Ot Z79.01 [facility] CENTER TECH (CURRENT) USE OF ANTICOAGULANT 12/05/2017 SARAH ANN MD Ot Z96.653 PRESENCE OF ARTIFICIAL KNEE JOINT, BILAT 12/05/2017 Heron SINGH MD Ot I10 ESSENTIAL (PRIMARY) HYPERTENSION 12/05/2017 FRANCISCO HONG, Heron GOYAL Ot I47.1 SUPRAVENTRICULAR TACHYCARDIA 12/05/2017 Heron SINGH MD Ot I48.0 PAROXYSMAL ATRIAL FIBRILLATION 12/05/2017 FRANCISCO HONG, Heron GOYAL Ot Z79.899 OTHER [facility] TECH (CURRENT) DRUG THERAPY 12/05/2017 Heron SINGH MD Ot Z88.0 ALLERGY STATUS TO PENICILLIN 12/05/2017 Heron SINGH MD Ot Z88.1 ALLERGY STATUS TO OTHER ANTIBIOTIC AGENT 12/05/2017 Heron SINGH MD, Ot Z88.2 ALLERGY STATUS TO SULFONAMIDES STATUS 12/05/2017 Heron SINGH MD Ot Z96.651 PRESENCE OF RIGHT ARTIFICIAL KNEE JOINT 12/05/2017 Heron SINGH MD Ot Z96.652 PRESENCE OF LEFT ARTIFICIAL KNEE JOINT 12/06/2017 SARAH ANN MD Ot E05.90 THYROTOXICOSIS, UNSP WITHOUT THYROTOXIC 12/06/2017 SARAH ANN MD Ot E78.5 HYPERLIPIDEMIA, UNSPECIFIED 12/06/2017 SARAH ANN MD Ot F32.9 MAJOR DEPRESSIVE DISORDER, SINGLE EPISOD 12/06/2017 SARAH ANN MD Ot F41.9 ANXIETY DISORDER, UNSPECIFIED 12/06/2017 SARAH ANN MD Ot I08.1 RHEUMATIC DISORDERS OF BOTH [place] AND T 12/06/2017 SARAH ANN MD Ot I10 ESSENTIAL (PRIMARY) HYPERTENSION 12/06/2017 SARAH ANN MD Ot I25.10 ATHSCL HEART DISEASE OF [place] CORONARY 12/06/2017 SARAH ANN MD Ot I47.2 VENTRICULAR TACHYCARDIA 12/06/2017 SARAH ANN MD Ot I48.0 PAROXYSMAL ATRIAL FIBRILLATION 12/06/2017 SARAH ANN MD Ot I48.92 UNSPECIFIED ATRIAL FLUTTER 12/06/2017 SARAH ANN MD Ot I65.23 OCCLUSION AND STENOSIS OF [place]ILATERAL [place] 12/06/2017 SARAH ANN MD Ot K21.9 GASTRO-ESOPHAGEAL REFLUX DISEASE WITHOUT 12/06/2017 SARAH ANN MD Ot M19.91 PRIMARY OSTEOARTHRITIS, UNSPECIFIED SITE 12/06/2017 SARAH ANN MD, Ot M54.9 DORSALGIA, UNSPECIFIED 12/06/2017 SARAH ANN MD Ot R55 SYNCOPE AND COLLAPSE 12/06/2017 SARAH ANN MD, Ot S99.811A OTHER SPECIFIED INJURIES OF RIGHT ANKLE, 12/06/2017 SARAH ANN MD Ot W19.XXXA UNSPECIFIED FALL, INITIAL ENCOUNTER 12/06/2017 SARAH ANN MD Ot Y92.[address] [facility] NON-INSTITUT (PRIVATE) 12/06/2017 SARAH NAN MD, Ot Z79.01 [facility] (CURRENT) USE OF ANTICOAGULANT 12/06/2017 SARAH ANN MD, Ot Z96.653 PRESENCE OF ARTIFICIAL KNEE JOINT, BILAT Procedures Code Description Performed By Performed On 47.01 LAPAROSCOP APPENDECTOMY 01/29/2013 [id number] NONDENOMINATIONAL OF CARDIAC RHYTHM, SINGLE 09/23/2017 [id number] NONDENOMINATIONAL OF CARDIAC RHYTHM, SINGLE 12/03/2017 Results Test Result Range CBC - 03/07/16 [...] 03/07/16 08:39 ACT PLUS (POC) 213 sec [place] <160 ACT PLUS (POC) - 03/07/16 08:57 ACT PLUS (POC) 257 sec [place] <160 ACT PLUS (POC) - 03/07/16 09:11 ACT PLUS (POC) 386 sec [place] <160 ACT PLUS (POC) - 03/07/16 09:30 ACT PLUS (POC) 302 sec [place] <160 ACT PLUS (POC) - 03/07/16 09:50 ACT PLUS (POC) 419 sec [place] <160 ACT PLUS (POC) - 03/07/16 10:13 ACT PLUS (POC) 441 sec [place] <160 ACT PLUS (POC) - 03/07/16 11:41 ACT PLUS (POC) 424 sec [place] <160 ACT PLUS (POC) - 03/07/16 11:56 ACT PLUS (POC) 153 sec [place] <160 METABOLIC PANEL, [facility] - 03/08/16 [...] culture - 11/21/17 09:24 Bacterial urine culture [id number] NRG COLONY COUNT <10,000 NRG PT panel [...] i.cardiac measurement (mass/volume) < ng/ mL <0.30 Complete blood count (CBC) with automated white blood cell (WBC) differential - 12/03/17 04:50 Blood leukocytes automated count (number/volume) 7.4 10*3/uL 4.3-11.0 Blood erythrocytes automated count (number/volume) 4.43 10*6/uL 4.35-5.85 Venous blood hemoglobin measurement (mass/volume) 12.9 g/dL 11.5-16.0 Blood hematocrit (volume fraction) 38 % 35-52 Automated erythrocyte mean corpuscular volume 86 [foz_us] 80-99 Automated erythrocyte mean corpuscular hemoglobin (mass per erythrocyte) 29 pg 25-34 Automated erythrocyte mean corpuscular hemoglobin concentration measurement ( mass/volume) 34 g/dL 32-36 Automated erythrocyte distribution width ratio 15.2 % 10.0-14.5 Automated blood platelet count (count/volume) 338 10*3/uL 130-400 Automated blood platelet mean volume measurement 10.3 [foz_us] 7.4-10.4 Automated blood neutrophils/100 leukocytes 64 % 42-75 Automated blood lymphocytes/100 leukocytes 26 % 12-44 Blood monocytes/100 leukocytes 7 % 0-12 Automated blood eosinophils/100 leukocytes 2 % 0-10 Automated blood basophils/100 leukocytes 0 % 0-10 Blood neutrophils automated count (number/volume) 4.7 10*3 1.8-7.8 Blood lymphocytes automated count (number/volume) 1.9 10*3 1.0-4.0 Blood monocytes automated count (number/volume) 0.5 10*3 0.0-1.0 Automated eosinophil count 0.2 10*3/uL 0.0-0.3 Automated blood basophil count (count/volume) 0.0 10*3/uL 0.0-0.1 Whole blood basic metabolic panel - 12/03/17 05:00 Serum or plasma sodium measurement (moles/volume) 140 mmol/L 135-145 Serum or plasma potassium measurement (moles/volume) 3.9 mmol/L 3.6-5.0 Serum or plasma chloride measurement (moles/volume) 109 mmol/L 98-107 Carbon dioxide 21 mmol/L 21-32 Serum or plasma anion gap determination (moles/volume) 10 mmol/L 5-14 Serum or plasma urea nitrogen measurement (mass/volume) 16 mg/dL 7-18 Serum or plasma creatinine measurement (mass/volume) 0.75 mg/dL 0.60-1.30 Serum or plasma urea nitrogen/creatinine mass ratio 21 NRG Serum or plasma creatinine measurement with calculation of estimated glomerular filtration rate > NRG Serum or plasma glucose measurement (mass/volume) 90 mg/dL 70-105 Serum or plasma calcium measurement (mass/volume) 9.2 mg/dL 8.5-10.1 Serum or plasma troponin i.cardiac measurement (mass/volume) - 12/03/17 05:00 Serum or plasma troponin i.cardiac measurement (mass/volume) < ng/ mL <0.30 Encounters ACCT No. Visit Date/Time Discharge Status Pt. Type Provider Facility Loc./Unit Complaint [id number] 01/27/2012 16:07:00 01/27/2012 23:59:59 CLS Outpatient FERNIE CARRINGTONNHUMAIRA Claire [id number] 06/17/2014 14:00:00 06/17/2014 23:00:00 DIS Outpatient [id number] 04/25/2014 11:17:00 04/25/2014 23:59:59 CLS Outpatient [id number] 01/20/2014 13:50:00 01/20/2014 15:00:00 DIS Outpatient [id number] 01/10/2014 15:09:00 01/10/2014 23:59:59 CLS Outpatient [id number] 12/05/2013 19:15:00 12/05/2013 23:59:59 CLS Outpatient [id number] 12/05/2013 19:30:00 12/05/2013 23:00:00 DIS Emergency [id number] 11/15/2013 15:21:00 11/15/2013 23:59:59 CLS Outpatient [id number] 03/07/2016 05:32:00 03/08/2016 11:59:00 DIS Outpatient Leticia HONG, [facility] E.EPO [id number] 11/21/2017 09:04:00 11/21/2017 23:59:59 CLS Outpatient RENÉ GR MD [facility] CATH A FLUTTER, HTN,HLP [id number] 11/14/2017 11:19:00 11/14/2017 13:35:00 DIS Outpatient ALTON RICHARDS MD [facility] ER RODRIGUEZ/HEART RACING- REFERRED BY DR GR [id number] 11/03/2017 11:23:00 11/03/2017 23:59:59 CLS Outpatient Heron SINGH MD [facility] CATH ATRIAL TACHYCARDIA [id number] 10/13/2017 10:33:00 10/13/2017 23:59:59 CLS Outpatient RENÉ GR MD [facility] CARD I48.0 PAROXYSMAL ARTRIAL FIBRILLATION [id number] 10/07/2017 11:38:00 10/07/2017 23:59:59 CLS Outpatient VALENCIA WILSON DO [facility] CARD HYPERTHYROID [id number] 10/07/2017 08:24:00 10/07/2017 11:25:00 DIS Emergency PATRIZIA TORRES MD [facility] ER HEADACHE SORE THROAT NAUSEA NECK PAIN [id number] 09/23/2017 08:11:00 09/24/2017 12:10:00 DIS Inpatient RENÉ GR MD [facility] ICU AFIB W/ RVR [id number] 08/14/2017 14:07:00 08/14/2017 23:59:59 CLS Outpatient VALENCIA WILSON DO [facility] RAD PULMONARY NODULE [id number] 06/04/2017 21:38:00 06/04/2017 23:13:00 DIS Emergency ALTON RICHARDS MD [facility] ER HIGH BLOOD PRESSURE [id number] 03/27/2017 09:33:00 03/27/2017 23:59:59 CLS Outpatient VALENCIA WILSON DO [facility] RAD LOSS OF HEIGHT, MENOPAUSE [id number] 11/09/2016 18:28:00 11/09/2016 21:01:00 DIS Emergency SHANNON FOSTER [facility] ER HIVES [id number] 04/12/2016 08:12:00 04/12/2016 09:23:00 DIS Outpatient YUVAL ERIC MD [facility] CARD SPONDYLOSIS WO MLEOPATHY [id number] 02/21/2016 09:53:00 02/21/2016 16:55:00 DIS Inpatient RENÉ GR MD [facility] CSD AFIB [id number] 01/03/2016 07:47:00 01/03/2016 09:23:00 DIS Outpatient RENÉ GR MD [facility] CATH PALPITATIONS,DIZZINESS [id number] 12/01/2015 09:24:00 12/01/2015 10:27:00 DIS Outpatient YUVAL ERIC MD [facility] CARD 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 [id number] 11/24/2015 10:43:00 11/24/2015 12:07:00 DIS Outpatient YUVAL ERIC MD [facility] CARD 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 [id number] 10/29/2015 20:46:00 10/30/2015 17:15:00 DIS Outpatient RENÉ GR MD [facility] CATH CHEST PAIN [id number] 09/20/2015 12:16:00 09/20/2015 23:59:59 CLS Outpatient HANNAH PRADHAN MD [facility] RAD RADICULOPATHY [id number] 12/02/2017 15:41:00 ACT Inpatient SETH HONG, SARAH Ames [facility] 4TH A-FLUTE, SYNCOPE [id number] 02/16/2013 09:54:00 Document Registration [id number] 02/11/2013 15:47:00 Document Registration [id number] 01/29/2013 17:51:00 Document Registration [id number] 11/27/2010 09:48:00 Document Registration
[2017-12-08 22:29] LABS: BASOPHILS % (AUTO) 1 % (0-10); EOSINOPHILS # (AUTO) 0.2 10^3/uL (0.0-0.3); EOSINOPHILS % (AUTO) 2 % (0-10); HEMATOCRIT 36 % (35-52); HEMOGLOBIN 12.3 G/DL (11.5-16.0); LYMPHOCYTES % (AUTO) 32 % (12-44); MEAN CORPUSCULAR HEMOGLOBIN 29 PG (25-34); MEAN CORPUSCULAR HGB CONC 34 G/DL (32-36); MEAN CORPUSCULAR VOLUME 84 FL (80-99); MEAN PLATELET VOLUME 10.3 FL (7.4-10.4); MONOCYTES # (AUTO) 0.6 X 10^3 (0.0-1.0); MONOCYTES % (AUTO) 10 % (0-12); NEUTROPHILS # (AUTO) 3.5 X 10^3 (1.8-7.8); NEUTROPHILS % (AUTO) 56 % (42-75); PLATELET COUNT 376 10^3/uL (130-400); RED BLOOD COUNT 4.28 10^6/uL (4.35-5.85); RED CELL DISTRIBUTION WIDTH 14.8 % (10.0-14.5); WHITE BLOOD COUNT 6.3 10^3/uL (4.3-11.0)
[2017-12-08 22:39] LABS: PROTHROMBIN TIME PATIENT 13.1 SEC (12.2-14.7)
[2017-12-08 22:47] VITALS: BP 107/79
[2017-12-08 22:49] LABS: ALANINE AMINOTRANSFERASE 14 U/L (0-55); ALBUMIN 4.3 GM/DL (3.2-4.5); ALKALINE PHOSPHATASE 67 U/L (40-136); BILIRUBIN,TOTAL 0.3 MG/DL (0.1-1.0); BUN/CREATININE RATIO 22; CALCIUM 9.3 MG/DL (8.5-10.1); CARBON DIOXIDE 21 MMOL/L (21-32); CHLORIDE 102 MMOL/L (98-107); GFR ESTIMATED > 60; GLUCOSE 100 MG/DL (70-105); MAGNESIUM 2.1 MG/DL (1.8-2.4); POTASSIUM 3.6 MMOL/L (3.6-5.0); SODIUM 136 MMOL/L (135-145); TOTAL PROTEIN 7.8 GM/DL (6.4-8.2)
[2017-12-08 22:55] LABS: MYOGLOBIN SERUM 17.7 NG/ML (10.0-92.0)
--- NOTE | 2017-12-08 23:29 | ED Cardiac General ---
History of Present Illness General Chief Complaint: Chest Wall/Rib Pain Stated Complaint: CHEST PAIN Nursing Triage Note: CHEST WALL PAIN, TACHYCARDIA, HTN SINCE 1529. DC'D FROM HOSPITAL TODAY Source: patient Exam Limitations: no limitations History of Present Illness Date Seen by Provider: Dec 08, 2017 Time Seen by Provider: 23:00 Allergies and Home Medications Allergies Coded Allergies: Sulfa (Sulfonamide Antibiotics) (Verified Allergy, Severe, HIVES, 11/14/17 ) amoxicillin (Verified Allergy, Unknown, hives, 11/09/16) clavulanic acid (Verified Allergy, Unknown, hives, 11/09/16) Home Medications Acetaminophen/Diphenhydramine 1 Each Tablet, 1 TAB PO HS, (Reported) Alprazolam 1 Mg Tablet, 1 MG PO BID, (Reported) Apixaban 5 Mg Tablet, 5 MG PO BID, (Reported) Biotin 5,000 Mcg Tab.rapdis, 5,000 MCG PO DAILY, (Reported) Buspirone HCl 10 Mg Tablet, 10 MG PO BID, (Reported) Diltiazem HCl 120 Mg Cap.er.24h, 120 MG PO DAILY PRN for SUPRAVENTRICULAR TACHYCARDIA, (Reported) may take when elevated heartbeat Enalapril Maleate 20 Mg Tablet, 20 MG PO DAILY, (Reported) Fenofibrate,Micronized 200 Mg Capsule, 200 MG PO DAILY, (Reported) Fish Oil/Dha/Epa 1 Each Capsule, 1,200 MG PO BID, (Reported) Levocetirizine Dihydrochloride 5 Mg Tablet, 5 MG PO DAILY PRN for ALLERGIES, ( Reported) Magnesium Oxide 400 Mg Tablet, 400 MG PO DAILY, (Reported) Omeprazole 40 Mg Capsule.dr, 40 MG PO DAILY, (Reported) Raloxifene HCl 60 Mg Tablet, 60 MG PO DAILY, (Reported) Sertraline HCl 50 Mg Tablet, 50 MG PO DAILY, (Reported) Tramadol HCl 50 Mg Tablet, 25-50 MG PO Q6H PRN for PAIN-MODERATE, (Reported) Vitamin E Acetate 400 Unit Capsule, 400 UNIT PO DAILY, (Reported) [Sotalol Hcl] 80 MG TAB, 80 MG PO BID, #60 Ref 4 Prescribed by: RENÉ GR on 12/08/17 0856 Past Nsmhbpu-Aydopq-Aiuibm Hx Patient Social History Alcohol Use: Denies Use Number of Drinks Today: Alcohol Beverage of Choice: Wine Recreational Drug Use: No Smoking Status: Never a Smoker 2nd Hand Smoke Exposure: No Recent Foreign Travel: No Contact w/Someone Who Travel: No Recent Infectious Disease Expo: No Recent Hopitalizations: Yes (a-fib couple times since SEPTEMBER 02) Immunizations Up To Date Tetanus Booster (TDap): Unknown PED Vaccines UTD: No Date of Pneumonia Vaccine: Sep 22, 2015 Date of Influenza Vaccine: Sep 01, 2017 Seasonal Allergies Seasonal Allergies: No Surgeries History of Surgeries: Yes (BACK SURGERY 8 YEARS AGO, BILAT TKR) Surgeries: Appendectomy, Cardiac Respiratory History of Respiratory Disorde: No Cardiovascular History of Cardiac Disorders: Yes (IMPLANTED HEART MONITOR PLACED BEGINNING OF 2015) Cardiac Disorders: Atrial Fibrillation, Hypertension Neurological History of Neurological Disord: No Reproductive System Hx Reproductive Disorders: No Sexually Transmitted Disease: No Genitourinary History of Genitourinary Disor: No Gastrointestinal History of Gastrointestinal Di: No Gastrointestinal Disorders: Gastroesophageal Reflux Musculoskeletal History of Musculoskeletal Dis: Yes (BACK SURGERY 9 YEARS AGO-MILD PAIN-6 SCREWS AND 2 RODS) Musculoskeletal Disorders: Arthritis, Chronic Back Pain Endocrine History of Endocrine Disorders: No HEENT History of HEENT Disorders: No Cancer History of Cancer: No Psychosocial History of Psychiatric Problem: Yes Behavioral Health Disorders: Anxiety, Depression Integumentary History of Skin or Integumenta: No Blood Transfusions History of Blood Disorders: No Adverse Reaction to a Blood Tr: No Family Medical History Significant Family History: Heart Disease Family Medial History: Cardiovascular disease 19 FATHER (mi) Dementia 19 MOTHER Physical Exam Vital Signs Vital Sign - Last 12Hours 12/08/17 22:10 Temp 97.7 Pulse 117 Resp 12 B/P (MAP) 149/119 (129) Pulse Ox 96 O2 Delivery Room Air Capillary Refill : Less Than 3 Seconds Progress/Results/Core Measures Results/Orders Lab Results Laboratory Tests Test 12/08/17 22:15 Range/Units White Blood Count 6.3 4.3-11.0 10^3/uL Red Blood Count 4.28 L 4.35-5.85 10^6/uL Hemoglobin 12.3 11.5-16.0 G/DL Hematocrit 36 35-52 % Mean Corpuscular Volume 84 80-99 FL Mean Corpuscular Hemoglobin 29 25-34 PG Mean Corpuscular Hemoglobin Concent 34 32-36 G/DL Red Cell Distribution Width 14.8 H 10.0-14.5 % Platelet Count 376 130-400 10^3/uL Mean Platelet Volume 10.3 7.4-10.4 FL Neutrophils (%) (Auto) 56 42-75 % Lymphocytes (%) (Auto) 32 12-44 % Monocytes (%) (Auto) 10 0-12 % Eosinophils (%) (Auto) 2 0-10 % Basophils (%) (Auto) 1 0-10 % Neutrophils # (Auto) 3.5 1.8-7.8 X 10^3 Lymphocytes # (Auto) 2.0 1.0-4.0 X 10^3 Monocytes # (Auto) 0.6 0.0-1.0 X 10^3 Eosinophils # (Auto) 0.2 0.0-0.3 10^3/uL Basophils # (Auto) 0.0 0.0-0.1 10^3/uL Prothrombin Time 13.1 12.2-14.7 SEC INR Comment 1.0 0.8-1.4 Activated Partial Thromboplast Time 37 H 24-35 SEC Sodium Level 136 135-145 MMOL/L Potassium Level 3.6 3.6-5.0 MMOL/L Chloride Level 102 98-107 MMOL/L Carbon Dioxide Level 21 21-32 MMOL/L Anion Gap 13 5-14 MMOL/L Blood Urea Nitrogen 20 H 7-18 MG/DL Creatinine 0.90 0.60-1.30 MG/DL Estimat Glomerular Filtration Rate > 60 BUN/Creatinine Ratio 22 Glucose Level 100 70-105 MG/DL Calcium Level 9.3 8.5-10.1 MG/DL Magnesium Level 2.1 1.8-2.4 MG/DL Total Bilirubin 0.3 0.1-1.0 MG/DL Aspartate Amino Transf (AST/SGOT) 24 5-34 U/L Alanine Aminotransferase (ALT/SGPT) 14 0-55 U/L Alkaline Phosphatase 67 40-136 U/L Myoglobin 17.7 10.0-92.0 NG/ML Troponin I < 0.30 <0.30 NG/ML Total Protein 7.8 6.4-8.2 GM/DL Albumin 4.3 3.2-4.5 GM/DL Vital Signs/I&O Vital Sign - Last 12Hours 12/08/17 12/08/17 12/08/17 12/08/17 22:10 22:10 22:47 23:54 Temp 97.7 Pulse 117 116 115 Resp 12 10 21 B/P (MAP) 149/119 (129) 107/79 (88) 107/87 (94) Pulse Ox 96 96 95 94 O2 Delivery Room Air Room Air Room Air Room Air Blood Pressure Mean: 88 Departure Impression Impression: Primary Impression: Chest wall pain Additional Impression: Atrial fibrillation status post cardioversion Disposition: HOME, SELF-CARE Condition: Improved Departure-Patient Inst. Decision time for Depature: 00:07 Referrals: RENÉ GR MD, WILLIAM J DO (PCP/Family) Primary Care Physician Patient Instructions: Muscle Strain (DC) Add. Discharge Instructions: All discharge instructions reviewed with patient and/or family. Voiced understanding. Continue usual home medications. Ice packs and heating pads as needed for pain. Tylenol Extra Strength iruc-thh-igzvwjw as directed for pain. No strenuous activity or heavy lifting until released by Dr. Gr anterior family practitioner. Follow-up with Dr. Gr tomorrow as previously scheduled. Return to the emergency department for worsened symptoms, chest pain , shortness of air, dizziness, or any other concerns. SHANNON SKINNER Dec 08, 2017 23:28
[2017-12-08 23:54] VITALS: BP 107/87
[2017-12-09 00:15] VITALS: BP 107/87
--- NOTE | 2017-12-09 08:10 | Diagnostic Imaging Report ---
INDICATION: Chest tightness Portable AP upright view of the chest is obtained with comparison made to study of 12/02/2017. FINDINGS: Heart size and pulmonary vascularity are within normal limits, and the lungs are clear, bilaterally. Small linear electronic device projects over left mid chest. IMPRESSION: Unremarkable chest. Dictated by: Dictated on workstation # [id number]
[2017-12-09] MEDS ORDERED: SOTA80TA PO (15:03)
== END 2017-12-09 00:15 | disposition home or self-care (01) ==
LOC: EDUNIT# 22:02 → ER 22:03
DX: I48.91 Unspecified atrial fibrillation (principal); I10 Essential (primary) hypertension; K21.9 Gastro-esophageal reflux disease without esophagitis; F41.9 Anxiety disorder, unspecified; F32.9 Major depressive disorder, single episode, unspecified; Z96.653 Presence of artificial knee joint, bilateral; Z90.49 Acquired absence of other specified parts of digestive tract; Z82.49 Family history of ischemic heart disease and other diseases of the circulatory system; Z95.810 Presence of automatic (implantable) cardiac defibrillator
CPT/HCPCS: 36415; 71045; 80053; 83735; 83874; 84484; 85025; 85610; 85730; 93005; 93041

== ENCOUNTER 2017-12-09 11:37 | Inpatient (IN) | payer MEDICARE, OTHER ==
[~2017-12-09] VITALS: Ht 160 cm; Wt 71.3 kg
[2017-12-09] VITALS (10 sets, daily range): BP systolic 85–115; BP diastolic 59–92
[2017-12-09] MEDS ORDERED: NS IV 1000 ML 1,000 ML IV ONE (11:56)
[2017-12-09 11:58] LABS: BASOPHILS % (AUTO) 1 % (0-10); EOSINOPHILS # (AUTO) 0.1 10^3/uL (0.0-0.3); EOSINOPHILS % (AUTO) 2 % (0-10); HEMATOCRIT 36 % (35-52); HEMOGLOBIN 12.5 G/DL (11.5-16.0); LYMPHOCYTES # (AUTO) 1.8 X 10^3 (1.0-4.0); LYMPHOCYTES % (AUTO) 29 % (12-44); MEAN CORPUSCULAR HEMOGLOBIN 29 PG (25-34); MEAN CORPUSCULAR HGB CONC 35 G/DL (32-36); MEAN CORPUSCULAR VOLUME 85 FL (80-99); MEAN PLATELET VOLUME 10.5 FL (7.4-10.4); MONOCYTES # (AUTO) 0.5 X 10^3 (0.0-1.0); MONOCYTES % (AUTO) 8 % (0-12); NEUTROPHILS # (AUTO) 3.7 X 10^3 (1.8-7.8); NEUTROPHILS % (AUTO) 60 % (42-75); PLATELET COUNT 401 10^3/uL (130-400); RED BLOOD COUNT 4.28 10^6/uL (4.35-5.85); RED CELL DISTRIBUTION WIDTH 15.1 % (10.0-14.5); WHITE BLOOD COUNT 6.1 10^3/uL (4.3-11.0)
--- OUTSIDE RECORDS SUMMARY | 2017-12-09 12:05 | XMS REPORT | Encounter Summary ---
Author Author [facility] Organization [facility] Address Unknown Phone Unavailable Care Team Providers Care Window And Siding Craftsman Name Role Phone PCP Unavailable Reason for Referral * CTA Procedure Status Reason Specialty Diagnoses / Referred By Referred To Procedures Contact Contact No Auth Needed Cardiology Diagnoses Vicente Coulter Bhg Card Nuclear Atrial [address] fibrillation, [address] [place], [place] ([facility]) [place] [address] [address] [address] [place], [place] Phone: Guidefitter [phone] [address] CARDIAC Phone: STRUCTURE WO/W [phone] CONT * CTA Procedure Status Reason Specialty Diagnoses / Referred By Referred To Procedures Contact Contact New Request Cardiology Diagnoses Vicente Coulter Bhg Card Nuclear Atrial [address] fibrillation, [address] [address] [place], [place] ([facility]) [place] [address] [address] [address] [place], [place] Phone: Guidefitter [phone] [address] LMTD CHEST W Phone: CARDIAC [phone] Encounter Details Date Type Department Care Team Description 11/27/2017 Orders Only [facility] Gloria Verma, DIANE Atrial fibrillation, [address] [place] unspecified type ([facility]) [place] [address] Social History Tobacco Use Types Packs/Day Years [...]
--- OUTSIDE RECORDS SUMMARY | 2017-12-09 12:05 | XMS REPORT | Encounter Summary ---
Author Author [facility] Organization [facility] Address Unknown Phone Unavailable Care Team Providers Care Human Resource Management Instructor Name Role Phone PCP Unavailable Encounter Details Date Type Department Care Team Description 11/27/2017 Procedure Pass [facility] Card[facility] [address] [place] [address] Social History Tobacco Use Types Packs/Day Years [...]
--- OUTSIDE RECORDS SUMMARY | 2017-12-09 12:05 | XMS REPORT | Continuity of Care Document ---
Author Author [facility] Address Unknown Phone Unavailable Care Team Providers Care Statistician Name Role Phone [employer] Unavailable Unavailable Problems Medications Allergies, Adverse Reactions, Alerts Immunizations Results Vital Signs Encounters Location Location Details Encounter Type Encounter Number Reason For Visit Attending Provider ADM Date DC Date Status Source OUTPATIENT [id number] BRODY RUSSELL 11/24/2017 11/24/2017 Active [facility] O Active [facility] Procedures Plan of Care Social History Assessment and Plan Family History Advance Directives Functional Status
--- OUTSIDE RECORDS SUMMARY | 2017-12-09 12:05 | XMS REPORT | Encounter Summary ---
Author Author [facility] Organization [facility] Address Unknown Phone Unavailable Care Team Providers Care Geothermal Plant Manager Name Role Phone PCP Unavailable Reason for Visit * Reason Comments Other Cancel ablation Encounter Details Date Type Department Care Team Description 12/02/2017 Telephone [facility] Cardiology Katharine Crum RN Other (Cancel ablation) [address] [facility] [address] [place] [address] Social History Tobacco Use Types Packs/Day Years Used Date Never Smoker Smokeless Tobacco: Never Used Alcohol Use Drinks/Week oz/Week Comments Yes 1 Glasses of 0.6 wine Sex Assigned at Date Recorded Not on file as of this encounter Miscellaneous Notes * Telephone Encounter - Alethea Rader RN - 12/02/2017 6:56 PM CRITICAL CARE UNIT NURSE notified PAT and CCTA scheduling that patient [...] Katharine Crum RN - 12/02/2017 1:51 PM CRITICAL CARE UNIT NURSE Mary called us back. I was able to speak with her. She would like to cancel her ablation due to transportation. She will work on arranging transportation and let us know when she wants to reschedule. DIANE [place] * Telephone Encounter - Katharine Crum RN - 12/02/2017 12:12 PM CRITICAL CARE UNIT NURSE I called the patient back as requested to discuss the below. I had to leave a message for her to call us back. Notified DIANE Healy. DIANE [place] ----- Message from Daisy Osman sent at 12/02/2017 11:58 AM CRITICAL CARE UNIT NURSE ----- Regarding: MPE,Cancel ablation Patient states she is going to have to cancel her ablation. Home is the call back in this encounter Plan of Treatment Date Type Specialty Care Team Description 11/27/2017 Procedure Pass Cardiology 11/27/2017 Procedure Pass Cardiology as of this encounter Visit Diagnoses Not on filein this encounter
--- OUTSIDE RECORDS SUMMARY | 2017-12-09 12:05 | XMS REPORT | Encounter Summary ---
Author Author [facility] Organization [facility] Address Unknown Phone Unavailable Care Team Providers Care Stone Polisher Hand Name Role Phone PCP Unavailable Reason for Visit * Reason Comments Appointment pre LAAA testing and procedure dates Encounter Details Date Type Department Care Team Description 11/26/2017 Telephone [facility] Cardiology Alethea Rader, RN Appointment (pre LAAA [address] testing and procedure [address] dates) [place] [address] Social History Tobacco Use Types Packs/Day Years Used Date Never Smoker Smokeless Tobacco: Never Used Alcohol Use Drinks/Week oz/Week Comments Yes 1 Glasses of 0.6 wine Sex Assigned at Date Recorded Not on file as of this encounter Miscellaneous Notes * Telephone Encounter - Alethea Rader, RN - 11/26/2017 3:28 PM HAIRSPRING ADJUSTER talked with Mrs Roth, she would like [...]
--- OUTSIDE RECORDS SUMMARY | 2017-12-09 12:05 | XMS REPORT | Encounter Summary ---
Author Author [facility] Organization [facility] Address Unknown Phone Unavailable Care Team Providers Care Diagnostic Imaging Manager Name Role Phone PCP Unavailable Encounter Details Date Type Department Care Team Description 11/28/2017 Orders Only [facility] Elina Grijalva RN Atrial fibrillation, [address] [place] unspecified type (HCC) [place] [address] (Primary Dx) [phone] Social History Tobacco Use Types Packs/Day Years [...]
--- OUTSIDE RECORDS SUMMARY | 2017-12-09 12:05 | XMS REPORT | Encounter Summary ---
Author Author [facility] Organization [facility] Address Unknown Phone Unavailable Care Team Providers Care Vice President Industrial Relations Name Role Phone PCP Unavailable Reason for Visit * Reason Comments Other cta requested Encounter Details Date Type Department Care Team Description 11/27/2017 Telephone [facility] Cardiology Gloria Verma RN Other ( cta requested) [address] [place] [address] Social History Tobacco Use Types Packs/Day Years Used Date Never Smoker Smokeless Tobacco: Never Used Alcohol Use Drinks/Week oz/Week Comments Yes 1 Glasses of 0.6 wine Sex Assigned at Date Recorded Not on file as of this encounter Miscellaneous Notes * Telephone Encounter - Glroia Verma RN - 11/27/2017 12:21 PM APPEALS AND GENERALIST CLERK ----- Message from Alethea Rader RN sent at 11/26/2017 3:32 PM APPEALS AND GENERALIST CLERK ----- Regarding: pre AF ablation ROSIO she [...]
--- OUTSIDE RECORDS SUMMARY | 2017-12-09 12:05 | XMS REPORT | Encounter Summary ---
Author Author [facility] Organization [facility] Address Unknown Phone Unavailable Care Team Providers Care Weaving Loom Operator Name Role Phone PCP Unavailable Encounter Details Date Type Department Care Team Description 11/27/2017 Procedure Pass [facility] Card[facility] [address] [place] [address] Social History Tobacco Use Types Packs/Day Years [...]
--- OUTSIDE RECORDS SUMMARY | 2017-12-09 12:05 | XMS REPORT | Encounter Summary ---
Author Author [facility] Organization [facility] Address Unknown Phone Unavailable Care Team Providers Care Financial Analysis Advisor Name Role Phone PCP Unavailable Reason for Visit * Reason Comments Other cancel cta per Alethea Rader RN Encounter Details Date Type Department Care Team Description 12/03/2017 Telephone [facility] Cardiology Gloria Verma RN Other ( cancel cta per [address] [place] RN) [place] [address] Social History Tobacco Use Types Packs/Day Years Used Date Never Smoker Smokeless Tobacco: Never Used Alcohol Use Drinks/Week oz/Week Comments Yes 1 Glasses of 0.6 wine Sex Assigned at Date Recorded Not on file as of this encounter Miscellaneous Notes * Telephone Encounter - Gloria Verma RN - 12/03/2017 12:33 PM TRUCKMAN ----- Message from Alethea Rader RN sent at 12/02/2017 6:55 PM TRUCKMAN ----- Regarding: pls cancel her ccta for 12/10 she will call back to reschedule. thank you in this encounter Plan of Treatment Date Type Specialty Care Team Description 11/27/2017 Procedure Pass Cardiology 11/27/2017 Procedure Pass Cardiology as of this encounter Visit Diagnoses Not on filein this encounter
--- OUTSIDE RECORDS SUMMARY | 2017-12-09 12:05 | XMS REPORT | Clinical Summary ---
Author Author [facility] Organization [facility] Address Unknown Phone Unavailable Care Team Providers Care Custom Feed Mill Operator Name Role Phone PCP Unavailable Source Comments Some departments are not documenting in the electronic medical record. If you do not see the information that you expected, contact Release of Information in the Health Information Management department at [phone] for further assistance in locating additional records.[facility] Allergies Active Allergy Reactions Severity Noted [...] Cardioverted 11/21/16; Ref by Dr. Price) 11/24/2017 [facility] Cardiology Vicente oCulter MD Encounter 11/21/2017 Telephone Cardiology Alethea Rader [...] Taken Blood Pressure 140/90 11/24/2017 1:40 PM PRINCIPAL CLERK Pulse 60 11/24/2017 1:40 PM PRINCIPAL CLERK Temperature - - Respiratory Rate - - Oxygen Saturation - - Inhaled Oxygen - - Concentration Weight 72.1 kg (159 lb) 11/24/2017 1:40 PM PRINCIPAL CLERK Height 160 cm (5' 3") 11/24/2017 1:40 PM PRINCIPAL CLERK Body Mass Index 28.17 11/24/2017 1:40 PM PRINCIPAL CLERK Plan of Treatment Date Type Specialty Care [...] Generator Model # [id number] Generator Serial # [id number] Generator Implnat Date 01/03/16 Device Implanted By [...] Device Followed by Dr. Price Name Device [place] Carelink Express Transmitter Compatible Known Diagnosed AFib Yes On Anticoagulation Yes Generator Balancer Scale [employer] Specimen Performing Laboratory OTHER OUTSIDE LAB Narrative 11/24/2017 - ILR LINQ interrogation at the [facility] office.Pt is new to clinic and provider for possible AF ablation.Pt reports getting a cardioversion completed on 11/21/17 at [facility] in [place], [place] where she also follows with primary Orthopedic Specialist, Dr. Price. Events noted since 11/13/17 remote: [...]
--- OUTSIDE RECORDS SUMMARY | 2017-12-09 12:06 | XMS REPORT | Encounter Summary ---
Author Author [facility] Organization [facility] Address Unknown Phone Unavailable Care Team Providers Care Cullet Washer Name Role Phone PCP Unavailable Reason for Visit * Reason Comments Appointment Encounter Details Date Type Department Care Team Description 10/27/2017 Telephone [facility] Kayla Baldwin MD Appointment Physicians - ENT [address] [place] [address] [facility] [place] [address] OFFICE BLDG [phone] [place] [address] Social History Tobacco Use Types Packs/Day Years Used Date Never Smoker Smokeless Tobacco: Never Used Alcohol Use Drinks/Week oz/Week Comments Yes 1 Glasses of 0.6 wine Sex Assigned at Date Recorded Not on file as of this encounter Miscellaneous Notes * Telephone Encounter - Carmel Monzon LPN - 10/29/2017 8:30 AM CANDY MAKER Ms. Roth calling to cancel her appointment scheduled for Friday12/05/16 due to transportation issues. She cannot find a ride for any Friday appointments. Pt appears to have appt with Dr. Walker in January. Ms. Roth denies further concerns at this time. * Telephone Encounter - Carmel Monzon LPN - 10/27/2017 4:53 PM CANDY MAKER Ms. Roth calling to request appointment for [...]
--- OUTSIDE RECORDS SUMMARY | 2017-12-09 12:06 | XMS REPORT | Encounter Summary ---
Author Author [facility] Organization [facility] Address Unknown Phone Unavailable Care Team Providers Care Power Tong Operator Name Role Phone PCP Unavailable Reason for Visit * Reason Comments Appointment botox Encounter Details Date Type Department Care Team Description 10/28/2017 Telephone [facility] Silverio Walker MD Appointment (botox) Physicians - ENT [address] [place] [address] [employer] [place] [address] OFFICE BLDG [phone] [place] [address] Social History Tobacco Use Types Packs/Day Years Used Date Never Smoker Smokeless Tobacco: Never Used Alcohol Use Drinks/Week oz/Week Comments Yes 1 Glasses of 0.6 wine Sex Assigned at Date Recorded Not on file as of this encounter Miscellaneous Notes * Telephone Encounter - Brielle Raya RN - 10/28/2017 10:51 AM MANAGER ENT Returned patient call; she wants to schedule [...]
--- OUTSIDE RECORDS SUMMARY | 2017-12-09 12:06 | XMS REPORT | Encounter Summary ---
Author Author [facility] Organization [facility] Address Unknown Phone Unavailable Care Team Providers Care Compass Operator Name Role Phone PCP Unavailable Encounter Details Date Type Department Care Team Description 11/21/2017 Telephone [facility] Cardiology Alethea Rader, RN [address] [place] [address] Social History Tobacco Use Types Packs/Day Years Used Date Never Smoker Smokeless Tobacco: Never Used Alcohol Use Drinks/Week oz/Week Comments Yes 1 Glasses of 0.6 wine Sex Assigned at Date Recorded Not on file as of this encounter Miscellaneous Notes * Telephone Encounter - Alethea Rader RN - 11/25/2017 10:43 AM PROOF MACHINE OPERATOR SUPERVISOR Formatting of this note may be different [...] Alethea Rader RN - 11/21/2017 10:40 AM PROOF MACHINE OPERATOR SUPERVISOR offered friday, november 24, 1:30 to interrogate linq and 2:[address] Coulter. Mrs Roth having cardioversion today by Dr Santos his office will fax records shelby to the EP right fax she does have an ilr so will schedule her before her appt * Telephone Encounter - Alethea Rader RN - 11/21/2017 10:37 AM PROOF MACHINE OPERATOR SUPERVISOR ----- Message from Yesy Tovar LPN sent at 11/21/2017 10:22 AM PROOF MACHINE OPERATOR SUPERVISOR ----- Regarding: MPE- appointmet SHELBY VM on triage line from Stephany with Dr. Beasley office # [phone]. Said that [address] Beasley talked to MPE [...] Generator Model # [id number] Generator Serial # [id number] Generator Implnat Date 01/03/16 Device Implanted By [facility] EP Device Followed By Other ILR Battery [...] Device Followed by Dr. Price Name Device [place] Carelink Express Transmitter Compatible Known Diagnosed AFib Yes On Anticoagulation Yes Generator Filter Tip Inspector [employer] Specimen Performing Laboratory OTHER OUTSIDE LAB Narrative 11/24/2017 - ILR LINQ interrogation at the office.Pt is new to clinic and provider for possible AF ablation.Pt reports getting a cardioversion completed on 11/21/17 at [facility] in [place], [place] where she also follows with primary Icu Clerk, Dr. Price. Events noted since 11/13/17 remote: [...]
--- OUTSIDE RECORDS SUMMARY | 2017-12-09 12:06 | XMS REPORT | Encounter Summary ---
Author Author [facility] Organization [facility] Address Unknown Phone Unavailable Care Team Providers Care All Round Logger Name Role Phone PCP Unavailable Reason for Visit * Reason Comments Follow-up Phone Call attempted to return call, phone cut off Encounter Details Date Type Department Care Team Description 11/25/2017 Telephone [facility] Cardiology Alethea Rader RN Follow- up Phone Call [address] (attempted to return [address] call, phone cut off) [place], [place] [id number] Social History Tobacco Use Types Packs/Day Years Used Date Never Smoker Smokeless Tobacco: Never Used Alcohol Use Drinks/Week oz/Week Comments Yes 1 Glasses of 0.6 wine Sex Assigned at Date Recorded Not on file as of this encounter Miscellaneous Notes * Telephone Encounter - Alethea Rader RN - 11/25/2017 12:48 PM STORE HAND received message Mary called back however, no answer with return call * Telephone Encounter - Alethea Rader RN - 11/25/2017 12:48 PM STORE HAND Formatting of this note may be different from the original. [facility] [place] Received: Today ARACELIS [...] like to do an overnight stay at [facility] due to long travel for son Mary will c/b and let us know * Telephone Encounter - Alethea Rader RN - 11/25/2017 9:11 AM STORE HAND ----- Message from Yesy Tovar LPN sent at 11/25/2017 9:04 AM STORE HAND ----- Regarding: MPE- 2 questions VM from [...]
--- OUTSIDE RECORDS SUMMARY | 2017-12-09 12:06 | XMS REPORT | Encounter Summary ---
Author Author [facility] Organization [facility] Address Unknown Phone Unavailable Care Team Providers Care Irrigation Service Technician Name Role Phone PCP Unavailable Encounter Details Date Type Department Care Team Description 11/24/2017 [facility] Cardiology Vicente Coulter MD Encounter [address] [place] [address] [place] [address] [place] [address] [phone] Social History Tobacco Use Types Packs/Day Years [...] Generator Model # [id number] Generator Serial # [id number] Generator Implnat Date 01/03/16 Device Implanted By [facility] EP Device Followed By Other [facility] [...] Device Followed by Dr. Price Name Device [place] Carelink Express Transmitter Compatible Known Diagnosed AFib Yes On Anticoagulation Yes Generator Trauma Counsellor [employer] Specimen Performing Laboratory OTHER OUTSIDE LAB Narrative 11/24/2017 - [facility] LINQ interrogation at the [facility] office.Pt is new to clinic and provider for possible AF ablation.Pt reports getting a cardioversion completed on 11/21/17 at [facility] in [place], [place] where she also follows with primary Recreational Therapy Technician, Dr. Price. Events noted since 11/13/17 [...]
--- OUTSIDE RECORDS SUMMARY | 2017-12-09 12:06 | XMS REPORT | Encounter Summary ---
Author Author [facility] Organization [facility] Address Unknown Phone Unavailable Care Team Providers Care Bss Solution Architect Name Role Phone PCP Unavailable Reason for Visit * Reason Comments Appointment Request botox Encounter Details Date Type Department Care Team Description 10/07/2017 Telephone [facility] Silverio Walker MD Appointment Request Physicians - ENT [address] (botox) 3RD FLOOR POD [address] [place] [address] OFFICE BLDG [phone] [place] [address] Social History Tobacco Use Types Packs/Day Years Used Date Never Smoker Smokeless Tobacco: Never Used Alcohol Use Drinks/Week oz/Week Comments Yes 1 Glasses of 0.6 wine Sex Assigned at Date Recorded Not on file as of this encounter Miscellaneous Notes * Telephone Encounter - Brielle Raya RN - 10/07/2017 8:22 AM CELL ASSEMBLY PINNER Returned patient call. She requested an appointment [...]
--- OUTSIDE RECORDS SUMMARY | 2017-12-09 12:06 | XMS REPORT | Encounter Summary ---
Author Author [facility] Organization [facility] Address Unknown Phone Unavailable Care Team Providers Care Short Order Cook Name Role Phone PCP Unavailable Reason for Visit * Reason Comments New Patient A-fib; Cardioverted 11/21/16; Ref by Dr. Price Encounter Details Date Type Department Care Team Description 11/24/2017 Office Visit [facility] Cardiology Vicente Coulter MD New Patient (A-fib; [address] [place] [address] [place] [address] Cardioverted 11/21/16; Ref [address] [place] [address] Price) [place] [address] [place] [address] [phone] Social History Tobacco Use Types Packs/Day Years Used Date Never Smoker Smokeless Tobacco: Never Used Alcohol Use Drinks/Week oz/Week Comments Yes 1 Glasses of 0.6 wine Sex Assigned at Date Recorded Not on file as of this encounter Last Filed Vital Signs Vital Sign Reading Time Taken Blood Pressure 140/90 11/24/2017 1:40 PM GOVERNMENT EMPLOYEE Pulse 60 11/24/2017 1:40 PM GOVERNMENT EMPLOYEE Temperature - - Respiratory Rate - - Oxygen Saturation - - Inhaled Oxygen - - Concentration Weight 72.1 kg (159 lb) 11/24/2017 1:40 PM GOVERNMENT EMPLOYEE Height 160 cm (5' 3") 11/24/2017 1:40 PM GOVERNMENT EMPLOYEE Body Mass Index 28.17 11/24/2017 1:40 PM GOVERNMENT EMPLOYEE in this encounter Instructions * Patient Instructions - Alethea Rader RN - 11/24/2017 2:00 PM GOVERNMENT EMPLOYEE call regarding your decision regarding the ablation after you talk with Dr Santos In order to provide you the best care possible we ask that you follow up as below: For NON-URGENT questions please contact us through your [facility] account. For all medication refills please contact your pharmacy or send a request through [employer]. For all questions that may need to be addressed urgently please call the nursing triage line at [phone] Friday - Friday 8-5 only. Please leave a detailed message with your name, date of , and reason for your call. To schedule an appointment call [phone]. Please allow 10-15 business days for the results of any testing to be reviewed. Please call our office if you have not heard from a nurse within this time frame. in this encounter Progress Notes * Vicente Coulter MD - 11/24/2017 2:00 PM GOVERNMENT EMPLOYEE Formatting of this note may be different from the original. Date of Service: 11/24/2017 Mary Roth is a 72 y.o. female. HPI I had the pleasure of seeing your patient Mary Roth in the [facility] as a part of the [facility] office today for initial Electrophysiolgy Consultation regarding her Paroxysmal Atrial Fibrillation. She is typically followed and was referred by my friend and colleague Dr. Price , her primary arc and gas welder, in [facility]. Ms. Roth is an exceptionally pleasant 72 [...] by duplex 05/2017Dr. Price. She has a [id number] score of 3: Female, HTN, and age [...] underwent AFIB Ablation by Dr. Kelly in [place], [place] -- Post AFIB Ablation--unclear what antiarrhythmic [...] her cardioversion for her persistent AFIB at [facility] in [facility] on 11/21/17 and has had no recurrent [...] to include, but not limited to: , [place], stroke, cardiac perforation, pulmonary vein stenosis, diaphragmatic [...] was done again by Dr. Kelly in [place] in February 2016 -- Obtain a ROSIO [...] as the inferior leads. No preexcitation noted. [employer] Reveal LinQ Implantable Looping Monitor Full device [...] In fact ultimately she underwent cardioversion [facility] on 11/21/17 and has had [...]
--- OUTSIDE RECORDS SUMMARY | 2017-12-09 12:06 | XMS REPORT | Encounter Summary ---
Author Author [facility] Organization [facility] Address Unknown Phone Unavailable Care Team Providers Care Acid Tester Name Role Phone PCP Unavailable Reason for Visit * Reason Comments Appointment botox Encounter Details Date Type Department Care Team Description 10/28/2017 Telephone [facility] Silverio Walker MD Appointment (botox) Physicians - ENT [address]RD FLOOR POD [address] [employer] [place] [address] OFFICE BLDG [phone] [place] [address] Social History Tobacco Use Types Packs/Day Years Used Date Never Smoker Smokeless Tobacco: Never Used Alcohol Use Drinks/Week oz/Week Comments Yes 1 Glasses of 0.6 wine Sex Assigned at Date Recorded Not on file as of this encounter Miscellaneous Notes * Telephone Encounter - Brielle Raya RN - 10/28/2017 9:22 AM SALVAGE MACHINE OPERATOR Returned patient call. Patient called [...]
[2017-12-09 12:09] LABS: INR 1.3 (0.8-1.4)
--- OUTSIDE RECORDS SUMMARY | 2017-12-09 12:09 | XMS REPORT | Continuity of Care Document ---
Author Author [facility] Address Unknown Phone Unavailable Allergies Active Description Code Type Severity Reaction Onset Reported/Identified Relationship to Patient Clinical Status Yes No Known Drug Allergies [id number] Drug Allergy Unknown N/A 08/02/2008 Yes No Known Allergies No Known Allergies Drug Allergy Unknown N/A 2015 Yes amoxicillin [id number] Drug Allergy Unknown hives 11/09/2016 Yes clavulanic acid [id number] Drug Allergy Unknown hives 11/09/2016 Yes Sulfa (Sulfonamide Antibiotics) [id number] Drug Allergy Severe HIVES 2016 Medications There [...] POSTMENOPAUSAL ATROPHIC 07/30/2010 HUMAIRA ENCISO APRN V72.31 BEAUTY C[employer]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 TEACHER EXAM, ROUTINE 09/05/2010 HUMAIRA ENCISO APRN 627.1 POSTMENOPAUSAL BLEEDING 09/05/2010 HUMAIRA ENCISO APRN 795.01 Cerv Pap Smear (+) Atyp Squamous Cells Undetermined Signif 10/17/2010 HUMAIRA ENCISO APRN V58.69 LONG-TERM (CURRENT) USE OF OTHER MEDICATIONS 11/27/2010 Ot 784.40 11/27/2010 Ot V57.3 01/22/2011 HUMAIRA ENCISO APRN 729.1 MYALGIA AND MYOSITIS UNSPECIFIED 03/14/2011 ENCISO JUNIOR ORACLE DBA, HUMAIRA R 272.4 OTHER AND UNSPECIFIED HYPERLIPIDEMIA [...] MD Ot I25.10 ATHSCL HEART DISEASE OF [place] CORONARY 10/30/2015 RENÉ GR MD Ot K21.9 GASTRO-ESOPHAGEAL REFLUX DISEASE WITHOUT 10/30/2015 RENÉ GR MD Ot R00.2 PALPITATIONS 10/30/2015 RENÉ GR MD Ot R07.89 OTHER CHEST PAIN 10/30/2015 RENÉ GR MD Ot Z79.899 OTHER RAILROAD INSPECTOR (CURRENT) DRUG THERAPY 11/24/2015 YUVAL ERIC MD Ot M47.816 SPONDYLOSIS W/O MYELOPATHY OR RADICULOPA 11/24/2015 YUVAL ERIC MD Ot M53.3 SACROCOCCYGEAL DISORDERS, NOT ELSEWHERE 11/24/2015 YUVAL ERIC MD Ot 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 SYNDROME, NOT ELSEWHERE 11/24/2015 YUVAL ERIC MD Ot Z79.899 OTHER RAILROAD INSPECTOR (CURRENT) DRUG THERAPY 12/01/2015 YUVAL ERIC MD Ot M47.816 SPONDYLOSIS W/O MYELOPATHY OR RADICULOPA 12/01/2015 YUVAL ERIC MD, Ot M53.3 SACROCOCCYGEAL DISORDERS, NOT ELSEWHERE 12/01/2015 YUVAL ERIC MD, Ot 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 SYNDROME, NOT ELSEWHERE 12/01/2015 YUVAL ERIC MD, Ot Z79.899 OTHER RAILROAD INSPECTOR (CURRENT) DRUG THERAPY 01/03/2016 RENÉ GR MD Ot E78.5 HYPERLIPIDEMIA, UNSPECIFIED 01/03/2016 RENÉ GR MD Ot I10 ESSENTIAL (PRIMARY) HYPERTENSION 01/03/2016 RENÉ GR MD Ot R00.2 PALPITATIONS 01/03/2016 RENÉ GR MD Ot R55 SYNCOPE AND COLLAPSE 01/03/2016 RENÉ GR MD Ot Z79.899 OTHER USP (CURRENT) DRUG THERAPY 02/21/2016 RENÉ GR MD Ot E78.5 HYPERLIPIDEMIA, UNSPECIFIED 02/21/2016 RENÉ GR MD Ot F41.9 ANXIETY DISORDER, UNSPECIFIED 02/21/2016 RENÉ GR MD Ot I10 ESSENTIAL (PRIMARY) HYPERTENSION 02/21/2016 RENÉ GR MD Ot I25.10 ATHSCL HEART DISEASE OF [place] CORONARY 02/21/2016 RENÉ GR MD Ot I42.9 [...] 02/23/2016 RENÉ GR MD Ot I48.92 02/23/2016 REÉN GR MD Ot I50.22 02/23/2016 RENÉ GR [...] 04/12/2016 YUVAL ERIC MD, Ot Z79.899 OTHER USP (CURRENT) DRUG THERAPY 04/24/2016 YUVAL ERIC MD, Ot M47.816 SPONDYLOSIS W/O MYELOPATHY OR RADICULOPA 04/24/2016 YUVAL ERIC MD, Ot M51.16 INTERVERTEBRAL DISC DISORDERS W RADICULO 04/24/2016 YUVAL ERIC MD, Ot M53.3 SACROCOCCYGEAL DISORDERS, NOT ELSEWHERE 04/24/2016 YUVAL ERIC MD, Ot M70.62 TROCHANTERIC BURSITIS, LEFT HIP 04/24/2016 YUVAL ERIC MD, Ot 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 SYNDROME, NOT ELSEWHERE 04/24/2016 YUVAL ERIC MD, Ot Z79.899 OTHER RAILROAD INSPECTOR (CURRENT) DRUG THERAPY 11/09/2016 SHANNON FOSTER Ot [...] MD Ot I25.10 ATHSCL HEART DISEASE OF [place] CORONARY 09/24/2017 RENÉ GR MD Ot I48.0 PAROXYSMAL ATRIAL FIBRILLATION 09/24/2017 RENÉ GR MD Ot I48.92 UNSPECIFIED ATRIAL FLUTTER 09/24/2017 RENÉ GR MD Ot I65.23 OCCLUSION AND STENOSIS OF [place]IL[place]AL [place] 09/24/2017 RENÉ GR MD Ot I95.9 HYPOTENSION, UNSPECIFIED 09/24/2017 ERNÉ GR MD Ot K21.9 GASTRO-ESOPHAGEAL REFLUX DISEASE WITHOUT 09/24/2017 RENÉ GR MD Ot M19.91 PRIMARY OSTEOARTHRITIS, UNSPECIFIED SITE 09/24/2017 RENÉ GR MD Ot M54.9 DORSALGIA, UNSPECIFIED 09/24/2017 RENÉ GR MD Ot R00.1 BRADYCARDIA, UNSPECIFIED 09/24/2017 RENÉ GR MD Ot R07.9 CHEST PAIN, UNSPECIFIED 09/24/2017 RENÉ GR MD Ot Z23 ENCOUNTER FOR IMMUNIZATION 09/24/2017 RENÉ GR MD, Ot Z79.01 RAILROAD INSPECTOR (CURRENT) USE OF ANTICOAGULANT 09/24/2017 RENÉ GR [...] HEADACHE 10/07/2017 PATRIZIA TORRES MD, Ot Z79.01 RAILROAD INSPECTOR (CURRENT) USE OF ANTICOAGULANT 10/07/2017 PATRIZIA TORRES [...] 11/06/2017 Heron SINGH MD Ot Z79.899 OTHER USP (CURRENT) DRUG THERAPY 11/06/2017 Heron SINGH MD [...] FRANCISCO HONG, Heron GOYAL Ot Z79.899 OTHER USP (CURRENT) DRUG THERAPY 11/09/2017 Heron SINGH MD Ot Z88.0 ALLERGY STATUS TO PENICILLIN 11/09/2017 FRNACISCO HONG, Heron GOYAL Ot Z88.1 ALLERGY STATUS [...] HEADACHE 11/18/2017 ALTON RICHARDS MD Ot Z79.01 USP (CURRENT) USE OF ANTICOAGULANT 11/18/2017 ALTON RICHARDS [...] 11/24/2017 RENÉ GR MD Ot Z79.899 OTHER USP (CURRENT) DRUG THERAPY 11/27/2017 RENÉ GR MD Ot I10 ESSENTIAL (PRIMARY) HYPERTENSION 11/27/2017 RENÉ GR MD Ot I48.0 PAROXYSMAL ATRIAL FIBRILLATION 11/27/2017 RENÉ GR MD Ot R00.0 TACHYCARDIA, UNSPECIFIED 11/27/2017 RENÉ GR MD Ot R00.2 PALPITATIONS 11/27/2017 RENÉ GR MD Ot Z79.899 OTHER USP (CURRENT) DRUG THERAPY 12/03/2017 SARAH ANN MD [...] MD Ot I25.10 ATHSCL HEART DISEASE OF [place] CORONARY 12/03/2017 SARAH ANN MD Ot I47.2 [...] ANN MD Ot Y92.[address] [facility]PR[facility] 12/03/2017 SARAH ANN MD Ot Z79.01 USP (CURRENT) USE OF ANTICOAGULANT 12/03/2017 SARAH ANN [...] MD Ot I25.10 ATHSCL HEART DISEASE OF [place] CORONARY 12/04/2017 SARAH ANN MD Ot I47.2 [...] ANN MD, Ot Y92.[address] IN [facility] NON-INSTITUT (PRIVATE) 12/04/2017 SARAH ANN MD Ot Z79.01 USP (CURRENT) USE OF ANTICOAGULANT 12/04/2017 SARAH ANN [...] MD Ot I25.10 ATHSCL HEART DISEASE OF [place] CORONARY 12/04/2017 SARAH ANN MD Ot I47.2 [...] ANN MD Ot Y92.[address] IN [facility] NON-INSTITUT (PRIVATE) 12/04/2017 SARAH ANN MD Ot Z79.01 RAILROAD INSPECTOR (CURRENT) USE OF ANTICOAGULANT 12/04/2017 SARAH ANN [...] MD Ot I25.10 ATHSCL HEART DISEASE OF [place] CORONARY 12/05/2017 SARAH ANN MD Ot I47.2 [...] (PRIVATE) 12/05/2017 SARAH ANN MD Ot Z79.01 RAILROAD INSPECTOR (CURRENT) USE OF ANTICOAGULANT 12/05/2017 SARAH ANN MD Ot Z96.653 PRESENCE OF ARTIFICIAL KNEE JOINT, BILAT 12/05/2017 Heron SINGH MD Ot I10 ESSENTIAL (PRIMARY) HYPERTENSION 12/05/2017 FRANCISCO HONG, Heron GOYAL Ot I47.1 SUPRAVENTRICULAR TACHYCARDIA 12/05/2017 Heron SINGH MD Ot I48.0 PAROXYSMAL ATRIAL FIBRILLATION 12/05/2017 FRANCISCO HONG, Heron GOYAL Ot Z79.899 OTHER RAILROAD INSPECTOR (CURRENT) DRUG THERAPY 12/05/2017 Heron SINGH MD [...] MD Ot I25.10 ATHSCL HEART DISEASE OF [place] CORONARY 12/06/2017 SARAH ANN MD Ot I47.2 [...] ANN MD Ot Y92.[address] IN [facility] NON-INSTITUT (PRIVATE) 12/06/2017 SARAH ANN MD, Ot Z79.01 USP (CURRENT) USE OF ANTICOAGULANT 12/06/2017 SARAH ANN MD, Ot Z96.653 PRESENCE OF ARTIFICIAL KNEE JOINT, BILAT Procedures Code Description Performed By Performed On 47.01 LAPAROSCOP APPENDECTOMY 01/29/2013 [id number] BUDDHIST OF CARDIAC RHYTHM, SINGLE 09/23/2017 [id number] BUDDHIST OF CARDIAC RHYTHM, SINGLE 12/03/2017 Results Test [...] 03/07/16 08:39 ACT PLUS (POC) 213 sec [place] <160 ACT PLUS (POC) - 03/07/16 08:57 ACT PLUS (POC) 257 sec [place] <160 ACT PLUS (POC) - 03/07/16 09:11 ACT PLUS (POC) 386 sec [place] <160 ACT PLUS (POC) - 03/07/16 09:30 ACT PLUS (POC) 302 sec [place] <160 ACT PLUS (POC) - 03/07/16 09:50 ACT PLUS (POC) 419 sec [place] <160 ACT PLUS (POC) - 03/07/16 10:13 ACT PLUS (POC) 441 sec [place] <160 ACT PLUS (POC) - 03/07/16 11:41 ACT PLUS (POC) 424 sec [place] <160 ACT PLUS (POC) - 03/07/16 11:56 ACT PLUS (POC) 153 sec [place] <160 METABOLIC PANEL, [facility] - 03/08/16 05:27 POTASSIUM 2.7 mmol/L [...] 05:27 MAGNESIUM 1.6 mg/dL 1.8-2.4 METABOLIC PANEL, [facility] - 03/08/16 09:33 POTASSIUM 2.8 mmol/L [...] culture - 11/21/17 09:24 Bacterial urine culture [id number] NRG COLONY COUNT <10,000 NRG PT panel [...] automated white blood cell (WBC) differential - 12/08/17 22:15 Blood leukocytes automated count (number/volume) 6.3 10*3/uL 4.3-11.0 Blood erythrocytes automated count (number/volume) 4.28 10*6/uL 4.35-5.85 Venous blood hemoglobin measurement (mass/volume) 12.3 g/dL 11.5-16.0 Blood hematocrit (volume fraction) 36 % 35-52 Automated erythrocyte mean corpuscular volume 84 [foz_us] 80-99 Automated erythrocyte mean corpuscular hemoglobin (mass per erythrocyte) 29 pg 25-34 Automated erythrocyte mean corpuscular hemoglobin concentration measurement ( mass/volume) 34 g/dL 32-36 Automated erythrocyte distribution width ratio 14.8 % 10.0-14.5 Automated blood platelet count (count/volume) 376 10*3/uL 130-400 Automated blood platelet mean volume measurement 10.3 [foz_us] 7.4-10.4 Automated blood neutrophils/100 leukocytes 56 % 42-75 Automated blood lymphocytes/100 leukocytes 32 % 12-44 Blood monocytes/100 leukocytes 10 % 0-12 Automated blood eosinophils/100 leukocytes 2 % 0-10 Automated blood basophils/100 leukocytes 1 % 0-10 Blood neutrophils automated count (number/volume) 3.5 10*3 1.8-7.8 Blood lymphocytes automated count (number/volume) 2.0 10*3 1.0-4.0 Blood monocytes automated count (number/volume) 0.6 10*3 0.0-1.0 Automated eosinophil count 0.2 10*3/uL 0.0-0.3 Automated blood basophil count (count/volume) 0.0 10*3/uL 0.0-0.1 PT panel in platelet poor plasma by coagulation assay - 12/08/17 22:15 Prothrombin time (PT) in platelet poor plasma by coagulation assay 13.1 s 12.2-14.7 INR in platelet poor plasma or blood by coagulation assay 1.0 0.8-1.4 Activated partial thromboplastin time (aPTT) in platelet poor plasma bycoagulation assay - 12/08/17 22:15 Activated partial thromboplastin time (aPTT) in platelet poor plasma bycoagulation assay 37 s 24-35 Comprehensive metabolic panel - 12/08/17 22:15 Serum or plasma sodium measurement (moles/volume) 136 mmol/L 135-145 Serum or plasma potassium measurement (moles/volume) 3.6 mmol/L 3.6-5.0 Serum or plasma chloride measurement (moles/volume) 102 mmol/L 98-107 Carbon dioxide 21 mmol/L 21-32 Serum or plasma anion gap determination (moles/volume) 13 mmol/L 5-14 Serum or plasma urea nitrogen measurement (mass/volume) 20 mg/dL 7-18 Serum or plasma creatinine measurement (mass/volume) 0.90 mg/dL 0.60-1.30 Serum or plasma urea nitrogen/creatinine mass ratio 22 NRG Serum or plasma creatinine measurement with calculation of estimated glomerular filtration rate > NRG Serum or plasma glucose measurement (mass/volume) 100 mg/dL 70-105 Serum or plasma calcium measurement (mass/volume) 9.3 mg/dL 8.5-10.1 Serum or plasma total bilirubin measurement (mass/volume) 0.3 mg/dL 0.1-1.0 Serum or plasma alkaline phosphatase measurement (enzymatic activity/volume) 67 U/L 40-136 Serum or plasma aspartate aminotransferase measurement (enzymatic activity/ volume) 24 U/L 5-34 Serum or plasma alanine aminotransferase measurement (enzymatic activity/volume ) 14 U/L 0-55 Serum or plasma protein measurement (mass/volume) 7.8 g/dL 6.4-8.2 Serum or plasma albumin measurement (mass/volume) 4.3 g/dL 3.2-4.5 Magnesium - 12/08/17 22:15 Magnesium 2.1 mg/dL 1.8-2.4 Serum or plasma troponin i.cardiac measurement (mass/volume) - 12/08/17 22:15 Serum or plasma troponin i.cardiac measurement (mass/volume) < ng/ mL <0.30 Myoglobin, serum - 12/08/17 22:15 Myoglobin, serum 17.7 ng/mL 10.0-92.0 Complete blood count (CBC) with automated white blood cell (WBC) differential - 12/09/17 11:50 Blood leukocytes automated count (number/volume) 6.1 10*3/uL 4.3-11.0 Blood erythrocytes automated count (number/volume) 4.28 10*6/uL 4.35-5.85 Venous blood hemoglobin measurement (mass/volume) 12.5 g/dL 11.5-16.0 Blood hematocrit (volume fraction) 36 % 35-52 Automated erythrocyte mean corpuscular volume 85 [foz_us] 80-99 Automated erythrocyte mean corpuscular hemoglobin (mass per erythrocyte) 29 pg 25-34 Automated erythrocyte mean corpuscular hemoglobin concentration measurement ( mass/volume) 35 g/dL 32-36 Automated erythrocyte distribution width ratio 15.1 % 10.0-14.5 Automated blood platelet count (count/volume) 401 10*3/uL 130-400 Automated blood platelet mean volume measurement 10.5 [foz_us] 7.4-10.4 Automated blood neutrophils/100 leukocytes 60 % 42-75 Automated blood lymphocytes/100 leukocytes 29 % 12-44 Blood monocytes/100 leukocytes 8 % 0-12 Automated blood eosinophils/100 leukocytes 2 % 0-10 Automated blood basophils/100 leukocytes 1 % 0-10 Blood neutrophils automated count (number/volume) 3.7 10*3 1.8-7.8 Blood lymphocytes automated count (number/volume) 1.8 10*3 1.0-4.0 Blood monocytes automated count (number/volume) 0.5 10*3 0.0-1.0 Automated eosinophil count 0.1 10*3/uL 0.0-0.3 Automated blood basophil count (count/volume) 0.0 10*3/uL 0.0-0.1 Encounters ACCT No. Visit Date/Time Discharge Status Pt. Type Provider Facility Loc./Unit Complaint [id number] 01/27/2012 16:07:00 01/27/2012 23:59:59 CLS Outpatient HUMAIRA ENCISO APRN [id number] 06/17/2014 14:00:00 06/17/2014 23:00:00 DIS Outpatient [id number] 04/25/2014 11:17:00 04/25/2014 23:59:59 CLS Outpatient [id number] 01/20/2014 13:50:00 01/20/2014 15:00:00 DIS Outpatient [id number] 01/10/2014 15:09:00 01/10/2014 23:59:59 CLS Outpatient [id number] 12/05/2013 19:15:00 12/05/2013 23:59:59 CLS Outpatient [id number] 12/05/2013 19:30:00 12/05/2013 23:00:00 DIS Emergency [id number] 11/15/2013 15:21:00 11/15/2013 23:59:59 CLS Outpatient [id number] 03/07/2016 05:32:00 03/08/2016 11:59:00 DIS Outpatient Leticia HONG, [facility] E.EPO [id number] 11/21/2017 09:04:00 11/21/2017 23:59:59 CLS Outpatient RENÉ GR MD [facility] CATH A FLUTTER, HTN,HLP [id number] 11/14/2017 11:19:00 11/14/2017 13:35:00 DIS Outpatient ALTON RICHARDS MD [facility] ER RODRIGUEZ/HEART RACING- REFERRED BY DR GR [id number] 11/03/2017 11:23:00 11/03/2017 23:59:59 CLS Outpatient Heron SINGH MD [facility] CATH ATRIAL TACHYCARDIA [id number] 10/13/2017 10:33:00 10/13/2017 23:59:59 CLS Outpatient RENÉ GR MD [facility] CARD I48.0 PAROXYSMAL ARTRIAL FIBRILLATION [id number] 10/07/2017 11:38:00 10/07/2017 23:59:59 CLS Outpatient VALENCIA WILSON DO [facility] CARD HYPERTHYROID [id number] 10/07/2017 08:24:00 10/07/2017 11:25:00 DIS Emergency PATRIZIA TORRES MD [facility] ER HEADACHE SORE THROAT NAUSEA NECK PAIN [id number] 09/23/2017 08:11:00 09/24/2017 12:10:00 DIS Inpatient RENÉ GR MD [facility] ICU AFIB W/ RVR [id number] 08/14/2017 14:07:00 08/14/2017 23:59:59 CLS Outpatient VALENCIA WILSON DO [facility] RAD PULMONARY NODULE [id number] 06/04/2017 21:38:00 06/04/2017 23:13:00 DIS Emergency ALTON RICHARDS MD [facility] ER HIGH BLOOD PRESSURE [id number] 03/27/2017 09:33:00 03/27/2017 23:59:59 CLS Outpatient VALENCIA WILSON DO [facility] RAD LOSS OF HEIGHT, MENOPAUSE [id number] 11/09/2016 18:28:00 11/09/2016 21:01:00 DIS Emergency SHANNON FOSTER [facility] ER HIVES [id number] 04/12/2016 08:12:00 04/12/2016 09:23:00 DIS Outpatient YUVAL ERIC MD [facility] CARD SPONDYLOSIS WO MLEOPATHY [id number] 02/21/2016 09:53:00 02/21/2016 16:55:00 DIS Inpatient RENÉ GR MD [facility] CSD AFIB [id number] 01/03/2016 07:47:00 01/03/2016 09:23:00 DIS Outpatient RENÉ GR MD [facility] CATH PALPITATIONS,DIZZINESS [id number] 12/01/2015 09:24:00 12/01/2015 10:27:00 DIS Outpatient YUVAL ERIC MD [facility] CARD 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 [id number] 11/24/2015 10:43:00 11/24/2015 12:07:00 DIS Outpatient YUVAL ERIC MD [facility] CARD 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 [id number] 10/29/2015 20:46:00 10/30/2015 17:15:00 DIS Outpatient RENÉ GR MD [facility] CATH CHEST PAIN [id number] 09/20/2015 12:16:00 09/20/2015 23:59:59 CLS Outpatient LORNE HONG, HANNAH Selby [facility] RAD RADICULOPATHY [id number] 12/09/2017 11:59:00 Document Registration [id number] 12/08/2017 22:34:00 Document Registration [id number] 12/02/2017 15:41:00 ACT Inpatient SETH HONG, SARAH Ames [facility] 4TH A-FLUTE, SYNCOPE [id number] 02/16/2013 09:54:00 Document Registration [id number] 02/11/2013 15:47:00 Document Registration [id number] 01/29/2013 17:51:00 Document Registration [id number] 11/27/2010 09:48:00 Document Registration
[2017-12-09] MEDS ORDERED: NS 100 ML (IVPB) BAG IV ONE (12:15)
[2017-12-09] MEDS ORDERED: IOHEXOL 350 MG/ML 150 ML (OMNIPAQUE 350) VIAL IV ONE (12:15)
--- NOTE | 2017-12-09 12:20 | ED Cardiac General ---
History of Present Illness General Chief Complaint: Cardiac/General Problems Stated Complaint: A-FIB Nursing Triage Note: ARRIVED VIA AMB TO ROOM 03. STATES SHE WAS JUST RELEASED FROM THE HOSPITAL WITHIN THE WEEK AND WAS SEEN IN THE ER YESTERDAY. STATES SHE WENT TO [facility]'S OFFICE THIS AM AND WAS TOLD TO COME BACK TO ER DUE TO AFIB. Source: patient, old records History of Present Illness Date Seen by Provider: Dec 09, 2017 Time Seen by Provider: 11:39 Initial Comments PT ARRIVES VIA POV, WITH HER SUITCASE. 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 GR FROM HIS OFFICE, PT STATES "TO BE ADMITTED HERE UNTIL I CAN GET TO "--NO CALL FROM DR. GR OR HIS OFFICE PT HAS HISTORY OF ATRIAL FIBRILLATION, ATRIAL TACHYCARDIA AND VENTRICULAR TACHYCARDIA. PT HAS HAD CARDIAC ABLATION IN THE PAST PT HAD CARDIOVERSION LAST WEEK FOR ATRIAL FIB--STATES WAS HER 4TH TIME SINCE SEPTEMBER 2017 PT WAS HERE 11/21/17 AND HAD CARDIOVERSION ADMITTED 12/02/17-12/08/17 FOR ATRIAL FLUTTER AND SYNCOPAL EPISODE WAS SEEN AT DR. GR'S OFFICE YESTERDAY AFTER BEING DISMISSED FROM HOSPITAL AND HAD ATRIAL TACHYCARDIA, AND IN ER AGAIN LAST PM FOR SAME--DX WITH CHEST WALL PAIN. WENT TO HIS OFFICE THIS AM, AND SENT BACK HERE PT DENIES ANY SYMPTOMS OF ANY KIND, EXCEPT MILD DYSPNEA ON EXERTION, AND STATES SHE HAS HAD SORENESS IN HER CHEST AFTER THE CARDIOVERSION LAST WEEK. PT STATES SHE FEELS FINE NOW AND DOES NOT HAVE SORENESS IN HER CHEST AT THIS TIME.. NO SWELLING IN LEGS/ FEET OR PAIN IN CALVES. PT STATES SHE WAS SUPPOSED TO INCREASE HER METOPROLOL DOSE, BUT HAS NOT DONE THAT YET,AND STATES THAT SHE WANTS TO BE ADMITTED IN THE HOSPITAL WHEN SHE INCREASES THE DOSE, BECAUSE SHE LIVES ALONE. PT STATES HEART RATE WAS IN 60'S WHEN SHE WAS DISMISSED YESTERDAY. THEN STARTED GOING UP AFTER SHE GOT HOME. STATES BP IS NORMALLY 120'S/80'S PT HAS HAD 8 VISITS SEPTEMBER FOR CARDIAC-RELATED COMPLAINTS. PCP: DR. WILSON INSULATOR APPRENTICE: DR. GR Allergies and Home Medications Allergies Coded Allergies: Sulfa (Sulfonamide Antibiotics) (Verified Allergy, Severe, HIVES, 11/14/17 ) amoxicillin (Verified Allergy, Unknown, hives, 11/09/16) clavulanic acid (Verified Allergy, Unknown, hives, 11/09/16) Home Medications Acetaminophen/Diphenhydramine 1 Each Tablet, 1 TAB PO HS, (Reported) Alprazolam 1 Mg Tablet, 1 MG PO BID, (Reported) Apixaban 5 Mg Tablet, 5 MG PO BID, (Reported) Biotin 5,000 Mcg Tab.rapdis, 5,000 MCG PO DAILY, (Reported) Buspirone HCl 10 Mg Tablet, 10 MG PO BID, (Reported) Diltiazem HCl 120 Mg Cap.er.24h, 120 MG PO DAILY PRN for SUPRAVENTRICULAR TACHYCARDIA, (Reported) may take when elevated heartbeat Enalapril Maleate 20 Mg Tablet, 20 MG PO DAILY, (Reported) Fenofibrate,Micronized 200 Mg Capsule, 200 MG PO DAILY, (Reported) Fish Oil/Dha/Epa 1 Each Capsule, 1,200 MG PO BID, (Reported) Levocetirizine Dihydrochloride 5 Mg Tablet, 5 MG PO DAILY PRN for ALLERGIES, ( Reported) Magnesium Oxide 400 Mg Tablet, 400 MG PO DAILY, (Reported) Omeprazole 40 Mg Capsule.dr, 40 MG PO DAILY, (Reported) Raloxifene HCl 60 Mg Tablet, 60 MG PO DAILY, (Reported) Sertraline HCl 50 Mg Tablet, 50 MG PO DAILY, (Reported) Tramadol HCl 50 Mg Tablet, 25-50 MG PO Q6H PRN for PAIN-MODERATE, (Reported) Vitamin E Acetate 400 Unit Capsule, 400 UNIT PO DAILY, (Reported) [Sotalol Hcl] 80 MG TAB, 80 MG PO BID, #60 Ref 4 Prescribed by: RENÉ GR on 12/08/17 0856 Review of Systems Constitutional: no symptoms reported, No diaphoresis, No dizziness EENTM: No Symptoms Reported Respiratory: See HPI, Denies Orthopnea, SOA With Exertion Cardiovascular: Chest Pain, Denies Edema, Denies Irregular Heart Rate, Denies Lightheadedness, Palpitations (DENIES), Denies Syncope Gastrointestinal: No Symptoms Reported, Denies Abdominal Pain, Denies Nausea Genitourinary: No Symptoms Reported Musculoskeletal: no symptoms reported, other (TWISTED RIGHT ANKLE LAST WEEK-- STILL A LITTLE SWOLLEN AND SORE. DID NOT SEEK CARE. SYMPTOMS GETTING BETTER) Skin: no symptoms reported Psychiatric/Neurological: Anxiety Endocrine: No Symptoms Reported Hematologic/Lymphatic: No Symptoms Reported Past Nrmwmzm-Cfmtzy-Gxveqm Hx Patient Social History Alcohol Use: Denies Use Alcohol Beverage of Choice: Wine Recreational Drug Use: No Smoking Status: Never a Smoker 2nd Hand Smoke Exposure: No Recent Foreign Travel: No Contact w/Someone Who Travel: No Recent Infectious Disease Expo: No Recent Hopitalizations: Yes (a-fib couple times since SEPTEMBER 02) Immunizations Up To Date Tetanus Booster (TDap): Unknown PED Vaccines UTD: No Date of Pneumonia Vaccine: Sep 22, 2015 Date of Influenza Vaccine: Sep 01, 2017 Seasonal Allergies Seasonal Allergies: No Surgeries History of Surgeries: Yes (BACK SURGERY 2008; BILAT TKR; CARDIAC ABLATION) Surgeries: Appendectomy, Cardiac, Orthopedic Respiratory History of Respiratory Disorde: No Cardiovascular History of Cardiac Disorders: Yes (IMPLANTED HEART MONITOR PLACED BEGINNING OF 2015; ATRIAL TACHYCARDIA; VENTRICULAR TACHYCARDIA) Cardiac Disorders: Atrial Fibrillation, Hypertension Neurological History of Neurological Disord: No Reproductive System Hx Reproductive Disorders: No Sexually Transmitted Disease: No Genitourinary History of Genitourinary Disor: No Gastrointestinal History of Gastrointestinal Di: Yes Gastrointestinal Disorders: Gastroesophageal Reflux Musculoskeletal History of Musculoskeletal Dis: Yes (BACK SURGERY 2008-MILD PAIN-6 SCREWS AND 2 RODS) Musculoskeletal Disorders: Arthritis, Chronic Back Pain Endocrine History of Endocrine Disorders: No HEENT History of HEENT Disorders: No Cancer History of Cancer: No Psychosocial History of Psychiatric Problem: Yes Behavioral Health Disorders: Anxiety, Depression Integumentary History of Skin or Integumenta: No Blood Transfusions History of Blood Disorders: No Adverse Reaction to a Blood Tr: No Family Medical History Significant Family History: Heart Disease Family Medial History: Cardiovascular disease 19 FATHER (mi) Dementia 19 MOTHER Physical Exam Vital Signs Vital Sign - Last 12Hours 12/09/17 11:37 Temp 98.0 Pulse 129 Resp 18 B/P (MAP) 108/87 (94) Pulse Ox 100 Capillary Refill : Less Than 3 Seconds General Appearance: No Apparent Distress, WD/WN, No Anxious (SLIGHTLY, VOICE TREMULOUS/SLIGHTLY HALTING) HEENT: PERRL/EOMI Neck: Full Range of Motion, Normal Inspection, Non Tender, Supple, No JVD Respiratory: Normal Breath Sounds, No Accessory Muscle Use, No Respiratory Distress Cardiovascular: No Edema, No JVD, No Murmur, Normal Peripheral Pulses, Tachycardia Gastrointestinal: Normal Bowel Sounds, No Organomegaly, No Pulsatile Mass, Non Tender, Soft Extremity: Normal Capillary Refill, Normal Inspection, Normal Range of Motion, Non Tender, No Calf Tenderness, No Pedal Edema Neurologic/Psychiatric: Alert, Oriented x3, No Motor/Sensory Deficits, private sector executive II- XII Norm as Tested Skin: Normal Color, Warm/Dry Progress/Results/Core Measures Results/Orders Lab Results Laboratory Tests Test 12/09/17 11:50 Range/Units White Blood Count 6.1 4.3-11.0 10^3/uL Red Blood Count 4.28 L 4.35-5.85 10^6/uL Hemoglobin 12.5 11.5-16.0 G/DL Hematocrit 36 35-52 % Mean Corpuscular Volume 85 80-99 FL Mean Corpuscular Hemoglobin 29 25-34 PG Mean Corpuscular Hemoglobin Concent 35 32-36 G/DL Red Cell Distribution Width 15.1 H 10.0-14.5 % Platelet Count 401 H 130-400 10^3/uL Mean Platelet Volume 10.5 H 7.4-10.4 FL Neutrophils (%) (Auto) 60 42-75 % Lymphocytes (%) (Auto) 29 12-44 % Monocytes (%) (Auto) 8 0-12 % Eosinophils (%) (Auto) 2 0-10 % Basophils (%) (Auto) 1 0-10 % Neutrophils # (Auto) 3.7 1.8-7.8 X 10^3 Lymphocytes # (Auto) 1.8 1.0-4.0 X 10^3 Monocytes # (Auto) 0.5 0.0-1.0 X 10^3 Eosinophils # (Auto) 0.1 0.0-0.3 10^3/uL Basophils # (Auto) 0.0 0.0-0.1 10^3/uL Prothrombin Time 16.0 H 12.2-14.7 SEC INR Comment 1.3 0.8-1.4 Activated Partial Thromboplast Time 38 H 24-35 SEC Sodium Level 137 135-145 MMOL/L Potassium Level 4.8 3.6-5.0 MMOL/L Chloride Level 102 98-107 MMOL/L Carbon Dioxide Level 22 21-32 MMOL/L Anion Gap 13 5-14 MMOL/L Blood Urea Nitrogen 23 H 7-18 MG/DL Creatinine 0.90 0.60-1.30 MG/DL Estimat Glomerular Filtration Rate > 60 BUN/Creatinine Ratio 26 Glucose Level 58 *L 70-105 MG/DL Calcium Level 9.6 8.5-10.1 MG/DL Magnesium Level 2.6 H 1.8-2.4 MG/DL Total Bilirubin 0.4 0.1-1.0 MG/DL Aspartate Amino Transf (AST/SGOT) 34 5-34 U/L Alanine Aminotransferase (ALT/SGPT) 16 0-55 U/L Alkaline Phosphatase 61 40-136 U/L Troponin I < 0.30 <0.30 NG/ML B-Type Natriuretic Peptide 260.4 H <100.0 PG/ML Total Protein 8.0 6.4-8.2 GM/DL Albumin 4.4 3.2-4.5 GM/DL My Orders Orders - BAL SHIPMAN DO Saline Lock/Iv-Start (12/09/17 11:40) Ekg Tracing (12/09/17 11:40) O2 (12/09/17 11:40) Monitor-Rhythm Ecg Trace Only (12/09/17 11:40) BNP (12/09/17 11:40) Cbc With Automated Diff (12/09/17 11:40) Comprehensive Metabolic Panel (12/09/17 11:40) Magnesium (12/09/17 11:40) Protime With Inr (12/09/17 11:40) Partial Thromboplastin Time (12/09/17 11:40) Troponin I (12/09/17 11:40) Saline Lock/Iv-Start (12/09/17 11:56) Ns Iv 1000 Ml (Sodium Chloride 0.9%) (12/09/17 11:56) Ct Angio Chest W (12/09/17 11:58) Iohexol Injection (Omnipaque 350 Mg/Ml 1 (12/09/17 12:15) Ns (Ivpb) (Sodium Chloride 0.9% Ivpb Bag (12/09/17 12:15) D50w (Emergency) Syringe (Dextrose 50% 5 (12/09/17 12:45) Medications Given in ED Current Medications Medications Dose Ordered Sig/Rachel Route Start Time Stop Time Status Last Admin Dose Admin Dextrose 25 ml ONCE ONCE IV 12/09/17 12:45 12/09/17 12:46 DC 12/09/17 12:39 25 ML Iohexol 125 ml ONCE ONCE IV 12/09/17 12:15 12/09/17 12:16 DC 12/09/17 12:20 125 ML Sodium Chloride 100 ml ONCE ONCE IV 12/09/17 12:15 12/09/17 12:16 DC 12/09/17 12:20 80 ML Sodium Chloride 1,000 ml @ 0 mls/hr Q0M ONCE IV 12/09/17 11:56 12/09/17 11:58 DC 12/09/17 12:01 1,000 MLS/HR Vital Signs/I&O Vital Sign - Last 12Hours 12/09/17 11:37 Temp 98.0 Pulse 129 Resp 18 B/P (MAP) 108/87 (94) Pulse Ox 100 Blood Pressure Mean: 94 Progress Note : Progress Note HR 120'S ON ARRIVAL, BP 80'S--90'S SYSTOLIC. PT ASYMPTOMATIC, EXCEPT C/O MILD DYSPNEA ON EXERTION HR DOWN TO 100-110'S AND BP UP TO 100 SYSTOLIC AT TIME OF ADMIT. NO DETERIORATION IN PT'S CONDITION DURING ER STAY PT ASYMPTOMATIC DURING ER STAY ECG Initial ECG Impression Date: Dec 09, 2017 Initial ECG Impression Time: 11:41 Initial ECG Rate: 120 Initial ECG Rhythm: S.Tach Diagnostic Imaging Comments CT CHEST ANGIOGRAM--NO P.E., NO ACUTE PROCESS, PER RADIOLOGIST REPORT @ 1252 Reviewed: Reviewed by Me Departure Communication (Admissions) Progress Notes 1253--ATTEMPTING TO CONTACT DR. GR, MESSAGE LEFT ON CELL PHONE 1300--CALLED DR. GR'S OFFICE, HE IS OUT OF TOWN FOR THE REST OF THE WEEK. 1303--SPOKE WITH DR. SINGH, HE ACCEPTS PT FOR ADMIT. HE ADVISES CARDIZEM DRIP AND SOTALOL 120 MG BID. HOLD METOPROLOL 1410--DR. SINGH HERE. CARE TURNED OVER TO HIM Impression Impression: Primary Impression: Supraventricular tachycardia Disposition: ADMITTED INPATIENT Condition: Stable Admissions Decision to Admit Reason: Admit from ER (General) Decision to Admit/Date: Dec 09, 2017 Time/Decision to Admit Time: 01:05 Departure-Patient Inst. Referrals: VALENCIA WILSON DO (PCP/Family) Primary Care Physician BAL SHIPMAN DO Dec 09, 2017 12:20
[2017-12-09 12:24] LABS: ALANINE AMINOTRANSFERASE 16 U/L (0-55); ALBUMIN 4.4 GM/DL (3.2-4.5); ALKALINE PHOSPHATASE 61 U/L (40-136); BILIRUBIN,TOTAL 0.4 MG/DL (0.1-1.0); BUN/CREATININE RATIO 26; CALCIUM 9.6 MG/DL (8.5-10.1); CARBON DIOXIDE 22 MMOL/L (21-32); CHLORIDE 102 MMOL/L (98-107); GFR ESTIMATED > 60; MAGNESIUM 2.6 MG/DL (1.8-2.4); POTASSIUM 4.8 MMOL/L (3.6-5.0); SODIUM 137 MMOL/L (135-145)
[2017-12-09 12:33] LABS: GLUCOSE 58 MG/DL (70-105)
--- NOTE | 2017-12-09 12:39 | Diagnostic Imaging Report ---
PROCEDURE: CT angiography of the chest with contrast. TECHNIQUE: Multiple contiguous axial images were obtained through the chest after uneventful bolus administration of intravenous contrast. Reconstructed CTA MIP acquisitions were also performed. INDICATION: Atrial fibrillation. FINDINGS: Evaluation of the pulmonary arterial system is without evidence of thromboembolism. No filling defects within the central, lobar, or segmental branches are seen. The thoracic aorta is normal in caliber. No dissection is identified. There is a small amount of pericardial fluid present. No pleural effusion is identified. Pulmonary veins and ostia are unremarkable. There is an irregular parenchymal density in the right lung apex, stable in size at 6 mm when compared with prior CT from 08/14/2017. There also appears to be some minimal scarring or atelectasis in the medial left lower lobe. No definite axillary, hilar, or mediastinal lymphadenopathy is detected. IMPRESSION: Stable CT of the chest when compared with the prior exam from 08/14/2017. There is no evidence of pulmonary embolism. Dictated by: Dictated on workstation # [id number]
[2017-12-09] MEDS ORDERED: DEXTROSE 50% 50 ML (IMS) SYR IV ONE (12:45)
[2017-12-09] MEDS ORDERED: DILTIAZEM IV FOR DRIP 125 MG in D5W 100 ML IVPB 100 ML IV SCH (13:15)
--- OUTSIDE RECORDS SUMMARY | 2017-12-09 14:23 | XMS REPORT | Continuity of Care Document ---
Author Author [employer] Organization [facility] Address Unknown Phone Unavailable Care Team Providers Care Bobbin Fixer Name Role Phone [employer] Unavailable Unavailable Problems Medications Allergies, Adverse Reactions, Alerts Immunizations Results Vital Signs Encounters Location Location Details Encounter Type Encounter Number Reason For Visit Attending Provider ADM Date DC Date Status Source OUTPATIENT [id number] BRODY RUSSELL 11/24/2017 11/24/2017 Active [facility] O Active [facility] Procedures Plan of Care Social History Assessment and Plan Family History Advance Directives Functional Status
--- OUTSIDE RECORDS SUMMARY | 2017-12-09 14:24 | XMS REPORT | Encounter Summary ---
Author Author [facility] Organization [facility] Address Unknown Phone Unavailable Care Team Providers Care Rn Palliative Name Role Phone PCP Unavailable Reason for Visit * Reason Comments New Patient A-fib; Cardioverted 11/21/16; Ref by Dr. Price Encounter Details Date Type Department Care Team Description 11/24/2017 Office Visit [facility] Cardiology Vicente Coulter MD New Patient (A-fib; [address] Cardioverted 11/21/16; Ref [place] [address] Price) [place] [address] [place] [address] [phone] Social History Tobacco Use Types Packs/Day Years Used Date Never Smoker Smokeless Tobacco: Never Used Alcohol Use Drinks/Week oz/Week Comments Yes 1 Glasses of 0.6 wine Sex Assigned at Date Recorded Not on file as of this encounter Last Filed Vital Signs Vital Sign Reading Time Taken Blood Pressure 140/90 11/24/2017 1:40 PM CENTER HOLE REAMER Pulse 60 11/24/2017 1:40 PM [facility] Temperature - - Respiratory Rate - - Oxygen Saturation - - Inhaled Oxygen - - Concentration Weight 72.1 kg (159 lb) 11/24/2017 1:40 PM [facility] Height 160 cm (5' 3") 11/24/2017 1:40 PM C[facility]LE RE[facility]ER Body Mass Index 28.17 11/24/2017 1:40 PM CENTER HOLE REAMER in this encounter Instructions * Patient Instructions - Alethea Rader RN - 11/24/2017 2:00 PM C[facility] REAMER call regarding your decision regarding the ablation after you talk with Dr Santos In order to provide you the best care possible we ask that you follow up as below: For NON-URGENT questions please contact us through your [employer] account. For all medication refills please contact your pharmacy or send a request through [employer]. For all questions that may need to be addressed urgently please call the nursing triage line at [phone] Friday - Friday 8-5 only. Please leave a detailed message with your name, date of , and reason for your call. To schedule an appointment call [phone]. Please allow 10-15 business days for the results of any testing to be reviewed. Please call our office if you have not heard from a nurse within this time frame. in this encounter Progress Notes * Vicente Coulter MD - 11/24/2017 2:00 PM [facility] Formatting of this note may be different from the original. Date of Service: 11/24/2017 Mary Roth is a 72 y.o. female. HPI I had the pleasure of seeing your patient Mary Roth in the [facility] as a part of the [facility] Cardiology [facility] office today for initial Electrophysiolgy Consultation regarding her Paroxysmal Atrial Fibrillation. She is typically followed and was referred by my friend and colleague Dr. Price , her primary varnisher apprentice, in [facility]. Ms. Roth is an exceptionally [...] by duplex 05/2017Dr. Price. She has a [id number] score of 3: Female, HTN, and age [...] underwent AFIB Ablation by Dr. Kelly in [place], [place] -- Post AFIB Ablation--unclear what antiarrhythmic [...] her cardioversion for her persistent AFIB at [facility] in [facility] on 11/21/17 and has had [...] to include, but not limited to: , [place], stroke, cardiac perforation, pulmonary vein stenosis, diaphragmatic [...] was done again by Dr. Kelly in [place] in February 2016 -- Obtain a ROSIO [...] as the inferior leads. No preexcitation noted. [employer] Reveal LinQ Implantable Looping Monitor Full device [...] In fact ultimately she underwent cardioversion [facility] on 11/21/17 and has had no recurrent [...]
--- OUTSIDE RECORDS SUMMARY | 2017-12-09 14:24 | XMS REPORT | Encounter Summary ---
Author Author [facility] Organization [facility] Address Unknown Phone Unavailable Care Team Providers Care Turbo Electric Operator Name Role Phone PCP Unavailable Reason for Visit * Reason Comments Other cancel cta per Alethea aRder RN Encounter Details Date Type Department Care Team Description 12/03/2017 Telephone [facility] Cardiology Gloria Verma RN Other ( cancel cta per [address] RN) [place] [address] Social History Tobacco Use Types Packs/Day Years Used Date Never Smoker Smokeless Tobacco: Never Used Alcohol Use Drinks/Week oz/Week Comments Yes 1 Glasses of 0.6 wine Sex Assigned at Date Recorded Not on file as of this encounter Miscellaneous Notes * Telephone Encounter - Gloria Verma RN - 12/03/2017 12:33 PM TECHNICAL SALES ADVISOR ----- Message from Alethea Rader RN sent at 12/02/2017 6:55 PM TECHNICAL SALES ADVISOR ----- Regarding: pls cancel her ccta for 12/10 she will call back to reschedule. thank you in this encounter Plan of Treatment Date Type Specialty Care Team Description 11/27/2017 Procedure Pass Cardiology 11/27/2017 Procedure Pass Cardiology as of this encounter Visit Diagnoses Not on filein this encounter
--- OUTSIDE RECORDS SUMMARY | 2017-12-09 14:24 | XMS REPORT | Encounter Summary ---
Author Author [facility] Organization [facility] Address Unknown Phone Unavailable Care Team Providers Care Battery Container Finishing Hand Name Role Phone PCP Unavailable Reason for Referral * CTA Procedure Status Reason Specialty Diagnoses / Referred By Referred To Procedures Contact Contact No Auth Needed Cardiology Diagnoses Vicente Coulter Bhg Card Nuclear Atrial [address] fibrillation, [address] [place] [address] [place], [place] ([facility]) [address] [address] [address] [place], [place] Phone: [employer] [address] [address] CARDIAC Phone: STRUCTURE WO/W [phone] CONT * CTA Procedure Status Reason Specialty Diagnoses / Referred By Referred To Procedures Contact Contact New Request Cardiology Diagnoses Vicente Coulter Bhg Card Nuclear Atrial [address] fibrillation, [address] [place] [address] [place], [place] ([facility]) [address] [address] [address] [place], [place] Phone: [employer] [address] CHEST [address] Phone: CARDIAC [phone] Encounter Details Date Type Department Care Team Description 11/27/2017 Orders Only [facility] Gloria Verma, DIANE Atrial fibrillation, [address] [place] unspecified type ([facility]) [place] [address] Social History Tobacco Use Types Packs/Day Years [...]
--- OUTSIDE RECORDS SUMMARY | 2017-12-09 14:24 | XMS REPORT | Encounter Summary ---
Author Author [facility] Organization [facility] Address Unknown Phone Unavailable Care Team Providers Care As400 Analyst Name Role Phone PCP Unavailable Reason for Visit * Reason Comments Appointment botox Encounter Details Date Type Department Care Team Description 10/28/2017 Telephone [facility] Silverio Walker MD Appointment (botox) Physicians - ENT [address] [place] [place] [address] OFFICE BLDG [phone] [place] [address] Social History Tobacco Use Types Packs/Day Years Used Date Never Smoker Smokeless Tobacco: Never Used Alcohol Use Drinks/Week oz/Week Comments Yes 1 Glasses of 0.6 wine Sex Assigned at Date Recorded Not on file as of this encounter Miscellaneous Notes * Telephone Encounter - Brielle Raya RN - 10/28/2017 9:22 AM GREEN END MAN Returned patient call. Patient called this morning [...]
--- OUTSIDE RECORDS SUMMARY | 2017-12-09 14:24 | XMS REPORT | Encounter Summary ---
Author Author [facility] Organization [facility] Address Unknown Phone Unavailable Care Team Providers Care Orthodontic Assistant Name Role Phone PCP Unavailable Encounter Details Date Type Department Care Team Description 11/27/2017 Procedure Pass [facility] Cardiology [address] [place] [address] Social History Tobacco Use Types Packs/Day Years [...]
--- OUTSIDE RECORDS SUMMARY | 2017-12-09 14:24 | XMS REPORT | Encounter Summary ---
Author Author [facility] Organization [facility] Address Unknown Phone Unavailable Care Team Providers Care Chain Testing Machine Operator Name Role Phone PCP Unavailable Reason for Visit * Reason Comments Other Cancel ablation Encounter Details Date Type Department Care Team Description 12/02/2017 Telephone [facility] Cardiology Katharine Crum RN Other (Cancel ablation) [address] [facility] [address] [place] [address] Social History Tobacco Use Types Packs/Day Years Used Date Never Smoker Smokeless Tobacco: Never Used Alcohol Use Drinks/Week oz/Week Comments Yes 1 Glasses of 0.6 wine Sex Assigned at Date Recorded Not on file as of this encounter Miscellaneous Notes * Telephone Encounter - Alethea Rader RN - 12/02/2017 6:56 PM FIGURINE MAKER notified PAT and CCTA scheduling that patient [...] Katharine Crum RN - 12/02/2017 1:51 PM FIGURINE MAKER Mary called us back. I was able to speak with her. She would like to cancel her ablation due to transportation. She will work on arranging transportation and let us know when she wants to reschedule. DIANE [place] * Telephone Encounter - Katharine Crum RN - 12/02/2017 12:12 PM FIGURINE MAKER I called the patient back as requested to discuss the below. I had to leave a message for her to call us back. Notified DIANE Healy. DIANE [place] ----- Message from Daisy Osman sent at 12/02/2017 11:58 AM FIGURINE MAKER ----- Regarding: MPE,Cancel ablation Patient states she is going to have to cancel her ablation. Home is the call back in this encounter Plan of Treatment Date Type Specialty Care Team Description 11/27/2017 Procedure Pass Cardiology 11/27/2017 Procedure Pass Cardiology as of this encounter Visit Diagnoses Not on filein this encounter
--- OUTSIDE RECORDS SUMMARY | 2017-12-09 14:24 | XMS REPORT | Encounter Summary ---
Author Author [facility] Organization [facility] Address Unknown Phone Unavailable Care Team Providers Care Coal Dumping Equipment Operator Name Role Phone PCP Unavailable Encounter Details Date Type Department Care Team Description 11/21/2017 Telephone [facility] Cardiology Alethea Rader, RN [address] [place] [address] Social History Tobacco Use Types Packs/Day Years Used Date Never Smoker Smokeless Tobacco: Never Used Alcohol Use Drinks/Week oz/Week Comments Yes 1 Glasses of 0.6 wine Sex Assigned at Date Recorded Not on file as of this encounter Miscellaneous Notes * Telephone Encounter - Alethea Rader RN - 11/25/2017 10:43 AM HOTEL GENERAL MANAGER Formatting of this note may be [...] Alethea Rader RN - 11/21/2017 10:40 AM HOTEL GENERAL MANAGER offered friday, november 24, 1:30 to interrogate linq and 2:[address] Coulter. Mrs Roth having cardioversion today by Dr Santos his office will fax records shelby to the EP right fax she does have an ilr so will schedule her before her appt * Telephone Encounter - Alethea Rader RN - 11/21/2017 10:37 AM HOTEL GENERAL MANAGER ----- Message from Yesy Tovar LPN sent at 11/21/2017 10:22 AM HOTEL GENERAL MANAGER ----- Regarding: MPE- appointmet SHELBY VM on triage line from Stephany with Dr. Beasley office # [phone]. [address] Beasley talked to MPE [...] Generator Model # [id number] Generator Serial # [id number] Generator Implnat Date 01/03/16 Device Implanted By [facility] EP Device Followed By Other ILR Battery [...] Device Followed by Dr. Price Name Device [place] Carelink Express Transmitter Compatible Known Diagnosed AFib Yes On Anticoagulation Yes Generator Dub Room Engineer Medefy Specimen Performing Laboratory OTHER OUTSIDE LAB Narrative 11/24/2017 - ILR LINQ interrogation at the office.Pt is new to clinic and provider for possible AF ablation.Pt reports getting a cardioversion completed on 11/21/17 at [facility] in [place], [place] where she also follows with primary Finishing Wire Sawyer, Dr. Price. Events noted since 11/13/17 remote: [...]
--- OUTSIDE RECORDS SUMMARY | 2017-12-09 14:24 | XMS REPORT | Encounter Summary ---
Author Author [facility] Organization [facility] Address Unknown Phone Unavailable Care Team Providers Care Assistant Oceanographer Name Role Phone PCP Unavailable Reason for Visit * Reason Comments Appointment Encounter Details Date Type Department Care Team Description 10/27/2017 Telephone [facility] Kayla Baldwin MD Appointment Physicians - ENT [address] FLOOR POD [address] [facility] [place] [address] OFFICE BLDG [phone] [place] [address] Social History Tobacco Use Types Packs/Day Years Used Date Never Smoker Smokeless Tobacco: Never Used Alcohol Use Drinks/Week oz/Week Comments Yes 1 Glasses of 0.6 wine Sex Assigned at Date Recorded Not on file as of this encounter Miscellaneous Notes * Telephone Encounter - Carmel Monzon LPN - 10/29/2017 8:30 AM MIMEOGRAPH OPERATOR Ms. Roth calling to cancel her appointment scheduled for Friday12/05/16 due to transportation issues. She cannot find a ride for any Friday appointments. Pt appears to have appt with Dr. Walker in January. Ms. Roth denies further concerns at this time. * Telephone Encounter - Carmel Monzon LPN - 10/27/2017 4:53 PM MIMEOGRAPH OPERATOR Ms. Roth calling to request appointment for [...]
--- OUTSIDE RECORDS SUMMARY | 2017-12-09 14:24 | XMS REPORT | Clinical Summary ---
Author Author [facility] Organization [facility] Address Unknown Phone Unavailable Care Team Providers Care Customer Support Executive Name Role Phone PCP Unavailable Source Comments Some departments are not documenting in the electronic medical record. If you do not see the information that you expected, contact Release of Information in the Health Information Management department at [phone] for further assistance in locating additional records.[facility] Allergies Active Allergy Reactions Severity Noted [...] Cardioverted 11/21/16; Ref by Dr. Price) 11/24/2017 [facility] Cardiology Vicente Coulter MD Encounter 11/21/2017 Telephone [...] Taken Blood Pressure 140/90 11/24/2017 1:40 PM CODING TECH Pulse 60 11/24/2017 1:40 PM CODING TECH Temperature - - Respiratory Rate - - Oxygen Saturation - - Inhaled Oxygen - - Concentration Weight 72.1 kg (159 lb) 11/24/2017 1:40 PM CODING TECH Height 160 cm (5' 3") 11/24/2017 1:40 PM CODING TECH Body Mass Index 28.17 11/24/2017 1:40 PM CODING TECH Plan of Treatment Date Type Specialty Care [...] Generator Model # [id number] Generator Serial # [id number] Generator Implnat Date 01/03/16 Device Implanted By [facility] EP Device Followed By Other ILR Battery [...] Device Followed by Dr. Price Name Device Fair Play Carelink Express Transmitter Compatible Known Diagnosed AFib Yes On Anticoagulation Yes Generator Sales Advisor [email or web address] Specimen Performing Laboratory OTHER OUTSIDE LAB Narrative 11/24/2017 - ILR LINQ interrogation at the [facility] office.Pt is new to clinic and provider for possible AF ablation.Pt reports getting a cardioversion completed on 11/21/17 at [facility] in [place], [place] where she also follows with primary Equipment Operator/Laborer/Supervisor, Dr. Price. Events noted since 11/13/17 remote: [...]
--- OUTSIDE RECORDS SUMMARY | 2017-12-09 14:24 | XMS REPORT | Encounter Summary ---
Author Author [facility] Organization [facility] Address Unknown Phone Unavailable Care Team Providers Care Vat Operator Name Role Phone PCP Unavailable Encounter Details Date Type Department Care Team Description 11/27/2017 Procedure Pass [facility] Cardiology [address] [place] [address] Social History Tobacco Use Types Packs/Day Years [...]
--- OUTSIDE RECORDS SUMMARY | 2017-12-09 14:24 | XMS REPORT | Encounter Summary ---
Author Author [facility] Organization [facility] Address Unknown Phone Unavailable Care Team Providers Care Chalk Machine Operator Name Role Phone PCP Unavailable Encounter Details Date Type Department Care Team Description 11/28/2017 Orders Only [facility] Elina Grijalva RN Atrial fibrillation, [address] [place] unspecified type (HCC) [place] [address] (Primary Dx) [phone] Social History Tobacco Use Types Packs/Day Years [...]
--- OUTSIDE RECORDS SUMMARY | 2017-12-09 14:24 | XMS REPORT | Encounter Summary ---
Author Author [facility] Organization [facility] Address Unknown Phone Unavailable Care Team Providers Care Teleradiologist Name Role Phone PCP Unavailable Reason for Visit * Reason Comments Appointment pre LAAA testing and procedure dates Encounter Details Date Type Department Care Team Description 11/26/2017 Telephone [facility] Cardiology Alethea Rader, RN Appointment (pre LAAA [address] testing and procedure [address] dates) [place] [address] Social History Tobacco Use Types Packs/Day Years Used Date Never Smoker Smokeless Tobacco: Never Used Alcohol Use Drinks/Week oz/Week Comments Yes 1 Glasses of 0.6 wine Sex Assigned at Date Recorded Not on file as of this encounter Miscellaneous Notes * Telephone Encounter - Alethea Rader, RN - 11/26/2017 3:28 PM ACID TREATER talked with Mrs Roth, she would like [...]
--- OUTSIDE RECORDS SUMMARY | 2017-12-09 14:24 | XMS REPORT | Encounter Summary ---
Author Author [facility] Organization [facility] Address Unknown Phone Unavailable Care Team Providers Care Fashion Consultant Sales Name Role Phone PCP Unavailable Encounter Details Date Type Department Care Team Description 11/24/2017 [facility] Cardiology Vicente Coulter MD Encounter [address] [place] [address] [place] [address] [address] [place] [address] [phone] Social History Tobacco Use Types Packs/Day Years [...] Generator Model # [id number] Generator Serial # [id number] Generator Implnat Date 01/03/[address] [facility] EP Device Followed By Other ILR [...] Device Followed by Dr. Price Name Device [place] Carelink Express Transmitter Compatible Known Diagnosed AFib Yes On Anticoagulation Yes Generator Stitcher Operator Duda Specimen Performing Laboratory OTHER OUTSIDE LAB Narrative 11/24/2017 - ILR LINQ interrogation at the [facility] office.Pt is new to clinic and provider for possible AF ablation.Pt reports getting a cardioversion completed on 11/21/17 at [facility] in [place], [place] where she also follows with primary Piano Assembler, Dr. Price. Events noted since 11/13/17 remote: [...]
--- OUTSIDE RECORDS SUMMARY | 2017-12-09 14:24 | XMS REPORT | Encounter Summary ---
Author Author [facility] Organization [facility] Address Unknown Phone Unavailable Care Team Providers Care Early Childhood Teacher Assistant Name Role Phone PCP Unavailable Reason for Visit * Reason Comments Other cta requested Encounter Details Date Type Department Care Team Description 11/27/2017 Telephone [facility] Cardiology Gloria Verma RN Other ( cta requested) [address] [place] [address] Social History Tobacco Use Types Packs/Day Years Used Date Never Smoker Smokeless Tobacco: Never Used Alcohol Use Drinks/Week oz/Week Comments Yes 1 Glasses of 0.6 wine Sex Assigned at Date Recorded Not on file as of this encounter Miscellaneous Notes * Telephone Encounter - Gloria Verma RN - 11/27/2017 12:21 PM HEAD ORTHOPEDIC TEAM PHYSICIAN ----- Message from Alethea Rader RN sent at 11/26/2017 3:32 PM HEAD ORTHOPEDIC TEAM PHYSICIAN ----- Regarding: pre AF ablation ROSIO she [...]
--- OUTSIDE RECORDS SUMMARY | 2017-12-09 14:24 | XMS REPORT | Encounter Summary ---
Author Author [facility] Organization [facility] Address Unknown Phone Unavailable Care Team Providers Care Business Support Professional Name Role Phone PCP Unavailable Reason for Visit * Reason Comments Follow-up Phone Call attempted to return call, phone cut off Encounter Details Date Type Department Care Team Description 11/25/2017 Telephone [facility] Cardiology Alethea Rader RN Follow- up Phone Call [address] (attempted to return [address] call, phone cut off) [place], [place] [id number] Social History Tobacco Use Types Packs/Day Years Used Date Never Smoker Smokeless Tobacco: Never Used Alcohol Use Drinks/Week oz/Week Comments Yes 1 Glasses of 0.6 wine Sex Assigned at Date Recorded Not on file as of this encounter Miscellaneous Notes * Telephone Encounter - Alethea Rader RN - 11/25/2017 12:48 PM ARMORED CABLE MACHINE OPERATOR received message Mary called back however, no answer with return call * Telephone Encounter - Alethea Rader RN - 11/25/2017 12:48 PM ARMORED CABLE MACHINE OPERATOR Formatting of this note may be different from the original. [facility] [place] [place] Received: Today ARACELIS Rainey [...] like to do an overnight stay at [facility] due to long travel for son Mary will c/b and let us know * Telephone Encounter - Alethea Rader RN - 11/25/2017 9:11 AM ARMORED CABLE MACHINE OPERATOR ----- Message from Yesy Tovar LPN sent at 11/25/2017 9:04 AM ARMORED CABLE MACHINE OPERATOR ----- Regarding: MPE- 2 questions VM [...]
--- OUTSIDE RECORDS SUMMARY | 2017-12-09 14:24 | XMS REPORT | Encounter Summary ---
Author Author [facility] Organization [facility] Address Unknown Phone Unavailable Care Team Providers Care Blocker Polishing Name Role Phone PCP Unavailable Reason for Visit * Reason Comments Appointment botox Encounter Details Date Type Department Care Team Description 10/28/2017 Telephone [facility] Silverio Walker MD Appointment (botox) Physicians - ENT [address] FLOOR POD [address] [place] [address] OFFICE BLDG [phone] [place] [address] Social History Tobacco Use Types Packs/Day Years Used Date Never Smoker Smokeless Tobacco: Never Used Alcohol Use Drinks/Week oz/Week Comments Yes 1 Glasses of 0.6 wine Sex Assigned at Date Recorded Not on file as of this encounter Miscellaneous Notes * Telephone Encounter - Brielle Raya RN - 10/28/2017 10:51 AM HARVESTING SUPERVISOR Returned patient call; she wants to schedule [...]
--- OUTSIDE RECORDS SUMMARY | 2017-12-09 14:25 | XMS REPORT | Encounter Summary ---
Author Author [facility] Organization [facility] Address Unknown Phone Unavailable Care Team Providers Care Court Attendant Name Role Phone PCP Unavailable Reason for Visit * Reason Comments Appointment Request botox Encounter Details Date Type Department Care Team Description 10/07/2017 Telephone [facility] Silverio Walker MD Appointment Request Physicians - ENT [address] (botox) 3RD FLOOR POD [address] [place] [address] OFFICE BLDG [phone] [place] [address] Social History Tobacco Use Types Packs/Day Years Used Date Never Smoker Smokeless Tobacco: Never Used Alcohol Use Drinks/Week oz/Week Comments Yes 1 Glasses of 0.6 wine Sex Assigned at Date Recorded Not on file as of this encounter Miscellaneous Notes * Telephone Encounter - Brielle Raya RN - 10/07/2017 8:22 AM SOCIAL WORK JOB TITLES Returned patient call. She requested an appointment [...]
--- OUTSIDE RECORDS SUMMARY | 2017-12-09 14:28 | XMS REPORT | Continuity of Care Document ---
Author Author [facility] Address Unknown Phone Unavailable Allergies Active Description Code Type Severity Reaction Onset Reported/Identified Relationship to Patient Clinical Status Yes No Known Drug Allergies [id number] Drug Allergy Unknown N/A 08/02/2008 Yes No Known Allergies No Known Allergies Drug Allergy Unknown N/A 2015 Yes amoxicillin [id number] Drug Allergy Unknown hives 11/09/2016 Yes clavulanic acid [id number] Drug Allergy Unknown hives 11/09/2016 Yes Sulfa (Sulfonamide Antibiotics) [id number] Drug Allergy Severe HIVES 2016 Medications There [...] POSTMENOPAUSAL ATROPHIC 07/30/2010 HUMAIRA ENCISO APRN V72.31 NEWSPAPER SUBSCRIPTION SOLICITOR EXAM, ROUTINE 09/05/2010 HUMAIRA ENCISO APRN 627.1 POSTMENOPAUSAL BLEEDING 09/05/2010 HUMAIRA ENCISO APRN 795.01 Cerv Pap Smear (+) Atyp Squamous Cells Undetermined Signif 10/17/2010 HUMAIRA ENCISO APRN V58.69 LONG-TERM (CURRENT) USE OF OTHER MEDICATIONS 11/27/2010 Ot 784.40 11/27/2010 Ot V57.3 01/22/2011 HUMAIRA ENCISO APRN 729.1 MYALGIA AND MYOSITIS UNSPECIFIED 03/14/2011 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, 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 R 272.4 OTHER AND UNSPECIFIED HYPERLIPIDEMIA [...] MD Ot I25.10 ATHSCL HEART DISEASE OF [place] CORONARY 10/30/2015 RENÉ GR MD Ot K21.9 GASTRO-ESOPHAGEAL REFLUX DISEASE WITHOUT 10/30/2015 RENÉ GR MD Ot R00.2 PALPITATIONS 10/30/2015 RENÉ GR MD Ot R07.89 OTHER CHEST PAIN 10/30/2015 RENÉ GR MD Ot Z79.899 OTHER RECEIVING DISTRIBUTION STATION OPERATOR (CURRENT) DRUG THERAPY 11/24/2015 YUVAL ERIC MD Ot M47.816 SPONDYLOSIS W/O MYELOPATHY OR RADICULOPA 11/24/2015 YUVAL ERIC MD Ot M53.3 SACROCOCCYGEAL DISORDERS, NOT ELSEWHERE 11/24/2015 YUVAL ERIC MD Ot 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 SYNDROME, NOT ELSEWHERE 11/24/2015 YUVAL ERIC MD Ot Z79.899 OTHER RECEIVING DISTRIBUTION STATION OPERATOR (CURRENT) DRUG THERAPY 12/01/2015 YUVAL ERIC MD Ot M47.816 SPONDYLOSIS W/O MYELOPATHY OR RADICULOPA 12/01/2015 YUVAL ERIC MD, Ot M53.3 SACROCOCCYGEAL DISORDERS, NOT ELSEWHERE 12/01/2015 YUVAL ERIC MD, Ot 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 SYNDROME, NOT ELSEWHERE 12/01/2015 YUVAL ERIC MD, Ot Z79.899 OTHER RECEIVING DISTRIBUTION STATION OPERATOR (CURRENT) DRUG THERAPY 01/03/2016 RENÉ GR [...] MD Ot I25.10 ATHSCL HEART DISEASE OF [place] CORONARY 02/21/2016 RENÉ GR MD Ot I42.9 [...] 04/24/2016 YUVAL ERIC MD, Ot Z79.899 OTHER RECEIVING DISTRIBUTION STATION OPERATOR (CURRENT) DRUG THERAPY 11/09/2016 SHANNON FOSTER [...] MD Ot I25.10 ATHSCL HEART DISEASE OF [place] CORONARY 09/24/2017 RENÉ GR MD Ot I48.0 [...] IMMUNIZATION 09/24/2017 RENÉ GR MD, Ot Z79.01 RECEIVING DISTRIBUTION STATION OPERATOR (CURRENT) USE OF ANTICOAGULANT 09/24/2017 RENÉ [...] HEADACHE 10/07/2017 PATRIZIA TORRES MD, Ot Z79.01 RECEIVING DISTRIBUTION STATION OPERATOR (CURRENT) USE OF ANTICOAGULANT 10/07/2017 PATRIZIA [...] 11/24/2017 RENÉ GR MD Ot Z79.899 OTHER SNF (CURRENT) DRUG THERAPY 11/27/2017 RENÉ GR MD Ot I10 ESSENTIAL (PRIMARY) HYPERTENSION 11/27/2017 RENÉ GR MD Ot I48.0 PAROXYSMAL ATRIAL FIBRILLATION 11/27/2017 RENÉ GR MD Ot R00.0 TACHYCARDIA, UNSPECIFIED 11/27/2017 RENÉ GR MD Ot R00.2 PALPITATIONS 11/27/2017 RENÉ GR MD Ot Z79.899 OTHER SNF (CURRENT) DRUG THERAPY 12/03/2017 SARAH ANN MD [...] MD Ot I25.10 ATHSCL HEART DISEASE OF [place] CORONARY 12/03/2017 SARAH ANN MD Ot I47.2 [...] ANN MD Ot Y92.[address] [facility]PR[facility] 12/03/2017 SARAH ANN MD Ot Z79.01 SNF (CURRENT) USE OF ANTICOAGULANT 12/03/2017 SARAH ANN [...] MD Ot I25.10 ATHSCL HEART DISEASE OF [place] CORONARY 12/04/2017 SARAH ANN MD Ot I47.2 [...] ANN MD, Ot Y92.[address] [facility] NON-INSTITUT (PRIVATE) 12/04/2017 SARAH ANN MD Ot Z79.01 SNF (CURRENT) USE OF ANTICOAGULANT 12/04/2017 SARAH ANN [...] MD Ot I25.10 ATHSCL HEART DISEASE OF [place] CORONARY 12/04/2017 SARAH ANN MD Ot I47.2 VENTRICULAR TACHYCARDIA 12/04/2017 SARAH ANN MD Ot I48.0 PAROXYSMAL ATRIAL FIBRILLATION 12/04/2017 SARAH ANN MD Ot I48.92 UNSPECIFIED ATRIAL FLUTTER 12/04/2017 SARAH ANN MD Ot I65.23 OCCLUSION AND STENOSIS OF [place]AL [place] 12/04/2017 ASRAH ANN MD Ot K21.9 GASTRO-ESOPHAGEAL REFLUX DISEASE [...] ANN MD Ot Y92.[address] [facility] NON-INSTITUT (PRIVATE) 12/04/2017 SARAH ANN MD Ot Z79.01 RECEIVING DISTRIBUTION STATION OPERATOR (CURRENT) USE OF ANTICOAGULANT 12/04/2017 SARAH ANN [...] MD Ot I25.10 ATHSCL HEART DISEASE OF [place] CORONARY 12/05/2017 SARAH ANN MD Ot I47.2 [...] (PRIVATE) 12/05/2017 SARAH ANN MD Ot Z79.01 RECEIVING DISTRIBUTION STATION OPERATOR (CURRENT) USE OF ANTICOAGULANT 12/05/2017 SARAH ANN MD Ot Z96.653 PRESENCE OF ARTIFICIAL KNEE JOINT, BILAT 12/05/2017 Heron SINGH MD Ot I10 ESSENTIAL (PRIMARY) HYPERTENSION 12/05/2017 FRANCISCO HONG, Heron GOYAL Ot I47.1 SUPRAVENTRICULAR TACHYCARDIA 12/05/2017 Heron SINGH MD Ot I48.0 PAROXYSMAL ATRIAL FIBRILLATION 12/05/2017 FRANCISCO HONG, Heron GOYAL Ot Z79.899 OTHER RECEIVING DISTRIBUTION STATION OPERATOR (CURRENT) DRUG THERAPY 12/05/2017 Heron SINGH MD [...] MD Ot I25.10 ATHSCL HEART DISEASE OF [place] CORONARY 12/06/2017 SARAH ANN MD Ot I47.2 [...] ANN MD Ot Y92.[address] [facility] NON-INSTITUT (PRIVATE) 12/06/2017 SARAH ANN MD, Ot Z79.01 SNF (CURRENT) USE OF ANTICOAGULANT 12/06/2017 SARAH ANN MD, Ot Z96.653 PRESENCE OF ARTIFICIAL KNEE JOINT, BILAT Procedures Code Description Performed By Performed On 47.01 LAPAROSCOP APPENDECTOMY 01/29/2013 [id number] TENRIISM OF CARDIAC RHYTHM, SINGLE 09/23/2017 [id number] TENRIISM OF CARDIAC RHYTHM, SINGLE 12/03/2017 Results Test [...] 03/07/16 08:39 ACT PLUS (POC) 213 sec [place] <160 ACT PLUS (POC) - 03/07/16 08:57 ACT PLUS (POC) 257 sec [place] <160 ACT PLUS (POC) - 03/07/16 09:11 ACT PLUS (POC) 386 sec [place] <160 ACT PLUS (POC) - 03/07/16 09:30 ACT PLUS (POC) 302 sec [place] <160 ACT PLUS (POC) - 03/07/16 09:50 ACT PLUS (POC) 419 sec [place] <160 ACT PLUS (POC) - 03/07/16 10:13 ACT PLUS (POC) 441 sec [place] <160 ACT PLUS (POC) - 03/07/16 11:41 ACT PLUS (POC) 424 sec [place] <160 ACT PLUS (POC) - 03/07/16 11:56 ACT PLUS (POC) 153 sec [place] <160 METABOLIC PANEL, [facility] - 03/08/16 05:27 POTASSIUM 2.7 mmol/L 3.5-5.3 [...] 05:27 MAGNESIUM 1.6 mg/dL 1.8-2.4 METABOLIC PANEL, [facility] - 03/08/16 09:33 POTASSIUM 2.8 mmol/L 3.5-5.3 [...] culture - 11/21/17 09:24 Bacterial urine culture [id number] NRG COLONY COUNT <10,000 NRG PT panel [...] platelet poor plasma by coagulation assay - 12/09/17 11:50 Prothrombin time (PT) in platelet poor plasma by coagulation assay 16.0 s 12.2-14.7 INR in platelet poor plasma or blood by coagulation assay 1.3 0.8-1.4 Activated partial thromboplastin time (aPTT) in platelet poor plasma bycoagulation assay - 12/09/17 11:50 Activated partial thromboplastin time (aPTT) in platelet poor plasma bycoagulation assay 38 s 24-35 Comprehensive metabolic panel - 12/09/17 11:50 Serum or plasma sodium measurement (moles/volume) 137 mmol/L 135-145 Serum or plasma potassium measurement (moles/volume) 4.8 mmol/L 3.6-5.0 Serum or plasma chloride measurement (moles/volume) 102 mmol/L 98-107 Carbon dioxide 22 mmol/L 21-32 [...] NRG Serum or plasma glucose measurement (mass/volume) 58 mg/dL 70-105 Serum or plasma calcium measurement (mass/volume) 9.6 mg/dL 8.5-10.1 Serum or plasma total bilirubin measurement (mass/volume) 0.4 mg/dL 0.1-1.0 Serum or plasma alkaline phosphatase measurement (enzymatic activity/volume) 61 U/L 40-136 Serum or plasma aspartate aminotransferase measurement (enzymatic activity/ volume) 34 U/L 5-34 Serum or plasma alanine aminotransferase measurement (enzymatic activity/volume ) 16 U/L 0-55 Serum or plasma protein measurement (mass/volume) 8.0 g/dL 6.4-8.2 Serum or plasma albumin measurement (mass/volume) 4.4 g/dL 3.2-4.5 Magnesium - 12/09/17 11:50 Magnesium 2.6 mg/dL 1.8-2.4 Serum or plasma lithium measurement (moles/volume) - 12/09/17 11:50 BNP level 260.4 pg/mL <100.0 Serum or plasma troponin i.cardiac measurement (mass/volume) - 12/09/17 11:50 Serum or plasma troponin i.cardiac measurement (mass/volume) < ng/ mL <0.30 Capillary blood glucose measurement by glucometer (mass/volume) - 12/09/17 14: 03 Capillary blood glucose measurement by glucometer (mass/volume) 93 mg/dL 70-110 Encounters ACCT No. Visit Date/Time Discharge Status Pt. Type Provider Facility Loc./Unit Complaint [id number] 01/27/2012 16:07:00 01/27/2012 23:59:59 [facility] Outpatient HUMAIRA ENCISO APRN [id number] 06/17/2014 14:00:00 06/17/2014 23:00:00 DIS Outpatient [id number] 04/25/2014 11:17:00 04/25/2014 23:59:59 CLS Outpatient [id number] 01/20/2014 13:50:00 01/20/2014 15:00:00 DIS Outpatient [id number] 01/10/2014 15:09:00 01/10/2014 23:59:59 CLS Outpatient [id number] 12/05/2013 19:15:00 12/05/2013 23:59:59 CLS Outpatient [id number] 12/05/2013 19:30:00 12/05/2013 23:00:00 DIS Emergency [id number] 11/15/2013 15:21:00 11/15/2013 23:59:59 CLS Outpatient [id number] 03/07/2016 05:32:00 03/08/2016 11:59:00 DIS Outpatient Leticia HONG, [facility] E.EPO [id number] 11/21/2017 09:04:00 11/21/2017 23:59:59 CLS Outpatient RENÉ GR MD [facility] CATH A FLUTTER, HTN,HLP [id number] 11/14/2017 11:19:00 11/14/2017 13:35:00 DIS Outpatient ALTON RICHARDS MD [facility] ER RODRIGUEZ/HEART RACING- REFERRED BY DR GR [id number] 11/03/2017 11:23:00 11/03/2017 23:59:59 CLS Outpatient Heron SINGH MD [facility] CATH ATRIAL TACHYCARDIA [id number] 10/13/2017 10:33:00 10/13/2017 23:59:59 CLS Outpatient RENÉ GR MD [facility] CARD I48.0 PAROXYSMAL ARTRIAL FIBRILLATION [id number] 10/07/2017 11:38:00 10/07/2017 23:59:59 CLS Outpatient VALENCIA WILSON DO [facility] CARD HYPERTHYROID [id number] 10/07/2017 08:24:00 10/07/2017 11:25:00 DIS Emergency MELISSA HONG, PATRIZIA Smith [facility] ER HEADACHE SORE THROAT NAUSEA NECK PAIN [id number] 09/23/2017 08:11:00 09/24/2017 12:10:00 DIS Inpatient RENÉ GR MD [facility] ICU AFIB W/ RVR [id number] 08/14/2017 14:07:00 08/14/2017 23:59:59 CLS Outpatient VALENCIA WILSON DO [facility] RAD PULMONARY NODULE [id number] 06/04/2017 21:38:00 06/04/2017 23:13:00 DIS Emergency SUSIE HONG, ALTON Suh [facility] ER HIGH BLOOD PRESSURE [id number] 03/27/2017 09:33:00 03/27/2017 23:59:59 CLS Outpatient VALENCIA WILSON DO [facility] RAD LOSS OF HEIGHT, MENOPAUSE [id number] 11/09/2016 18:28:00 11/09/2016 21:01:00 DIS Emergency SHANNON FOSTER [facility] ER HIVES [id number] 04/12/2016 08:12:00 04/12/2016 09:23:00 DIS Outpatient YUVAL ERIC MD [facility] CARD SPONDYLOSIS WO MLEOPATHY [id number] 02/21/2016 09:53:00 02/21/2016 16:55:00 DIS Inpatient RENÉ GR MD [facility] CSD AFIB [id number] 01/03/2016 07:47:00 01/03/2016 09:23:00 DIS Outpatient RENÉ GR MD [facility] CATH PALPITATIONS,DIZZINESS [id number] 12/01/2015 09:24:00 12/01/2015 10:27:00 DIS Outpatient YUVAL ERIC MD [facility] CARD 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 [id number] 11/24/2015 10:43:00 11/24/2015 12:07:00 DIS Outpatient YUVAL ERIC MD [facility] CARD 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 [id number] 10/29/2015 20:46:00 10/30/2015 17:15:00 DIS Outpatient MAILE HONG, RENÉ Selby [facility] CATH CHEST PAIN [id number] 09/20/2015 12:16:00 09/20/2015 23:59:59 CLS Outpatient HANNAH PRADHAN MD [facility] RAD RADICULOPATHY [id number] 12/09/2017 11:59:00 Document Registration [id number] 12/08/2017 22:34:00 Document Registration [id number] 12/02/2017 15:41:00 ACT Inpatient SETH HONG, SARAH Ames [facility] 4TH A-FLUTE, SYNCOPE [id number] 02/16/2013 09:54:00 Document Registration [id number] 02/11/2013 15:47:00 Document Registration [id number] 01/29/2013 17:51:00 Document Registration [id number] 11/27/2010 09:48:00 Document Registration
--- NOTE | 2017-12-09 14:47 | Electrophysiology Consultation ---
HPI-Cardiology Cardiology Consultation: Date of Consultation 12/09/17 Date of Admission Attending Physician Heron Harris MD Admitting Physician Sung Dunn DO Consulting Physician Heron HARRIS MD HPI: Time Seen by Provider: 14:56 Chief Complaint: Atrial Flutter with rapid ventricular rate this is a 72-year-old lady who has history of hypertension.she has previous history of atrial fibrillation and underwent A. fib ablation and right atrial flutter ablation on 03/07/2016 in [place]. She has an implantable loop recorder and which showed no further episodes of atrial fibrillation still 09/22/2017 when she presented with atrial fibrillation with rapid ventricular rate. Transesophageal echocardiogram was performed by Dr. Price and cardioversion was done which was successful. multaq was started. She will also continue on oral anticoagulation. Previously she was on flecainide but resulted in wide complex tachycardia and therefore was discontinued. Her left atrium is moderately dilated. LV size and function is normal. She continued to have atrial flutter with 2-1 AV block with rapid ventricular rate. Cardioversion was performed on 11/03/2017 which was successful. However she presented recently to the hospital with atrial fibrillation and was cardioverted again by Dr. Price. She was started on sotalol 80 mg twice a day. She was discharged recently however presented back in atrial flutter/atrial fibrillation with palpitations and shortness of breath. Review of Systems-Cardiology Review of Systems Constitutional: No As described under HPI, No no symptoms reported, No chills, No fever, No lightheadedness, No malaise, No tiredness, No weight loss, No weight gain, No other Eyes: No As described under HPI, No no symptoms reported, No blindness, No blurred vision, No contact lenses, No drainage, No decreased acuity, No foreign body sensation, No glasses, No inflammation, No pain, No photophobia, No previous injury, No shadows, No tunnel vision, No other, No vision change Ears/Nose/Throat: No As described under HPI, No no symptoms reported, No chronic hearing loss, No epistaxis, No ear discharge, No ear pain, No loose teeth, No mouth pain, No mouth swelling, No nasal drainage, No nose pain, No recent hearing loss, No throat pain, No throat swelling, No ulcerations, No other Respiratory: shortness of breath Cardiovascular: irregular heart rate, palpitations Gastrointestinal: No no symptoms reported, No As described under HPI, No abdomen distended, No abdominal pain, No blood streaked bowels, No constipation , No diarrhea, No difficulty swallowing, No nausea, No poor appetite, No poor fluid intake, No rectal bleeding, No vomiting, No other, No nausea/vomiting/ diarrhea, No stool coloration changes Genitourinary: No no symptoms reported, No As described under HPI, No burning, No dysuria, No discharge, No frequency, No flank pain, No hematuria, No incontinence, No pain, No urgency, No other, No urine frequency changes, No urine coloration changes Musculoskeletal: No no symptoms reported, No As describe under HPI, No back pain, No gout, No joint pain, No joint swelling, No muscle pain, No muscle stiffness, No neck pain, No other Skin: No no symptoms reported, No As described under HPI, No change in color, No change in hair/nails, No dryness, No lesions, No lumps, No rash, No other, No skin related problems, No ulcerations, No rash on exposed areas, No ulcerations on exposed areas Psychiatric/Neurological: No no symptoms reported, No As described under HPI, No anxiety, No depression, No emotional problems, No headache, No numbness, No pre-existing deficit, No seizure, No tingling, No tremors, No weakness, No other , No focal weakness, No syncope Hematologic: No no symptoms reported, No As described under HPI, No anemia, No blood clots, No easy bleeding, No easy bruising, No swollen glands, No other, No bleeding abnormalities RHR-[id number]-Skvpzp Hx Patient Social History Alcohol Use: Denies Use Recreational Drug Use: No Smoking Status: Never a Smoker 2nd Hand Smoke Exposure: No Recent Foreign Travel: No Recent Infectious Disease Expo: No Immunizations Up To Date Tetanus Booster (TDap): Unknown Date of Pneumonia Vaccine: Sep 22, 2015 Date of Influenza Vaccine: Sep 01, 2017 Past Medical History PMH As described under Assessment. Family Medical History Family History: Cardiovascular disease 19 FATHER (mi) Dementia 19 MOTHER Allergies and Home Medications Allergies Coded Allergies: Sulfa (Sulfonamide Antibiotics) (Verified Allergy, Severe, HIVES, 11/14/17 ) amoxicillin (Verified Allergy, Unknown, hives, 11/09/16) clavulanic acid (Verified Allergy, Unknown, hives, 11/09/16) Home Medications Acetaminophen/Diphenhydramine 1 Each Tablet, 1 TAB PO HS, (Reported) Alprazolam 1 Mg Tablet, 1 MG PO BID, (Reported) Apixaban 5 Mg Tablet, 5 MG PO BID, (Reported) Biotin 5,000 Mcg Tab.rapdis, 5,000 MCG PO DAILY, (Reported) Buspirone HCl 10 Mg Tablet, 10 MG PO BID, (Reported) Diltiazem HCl 120 Mg Cap.er.24h, 120 MG PO DAILY PRN for SUPRAVENTRICULAR TACHYCARDIA, (Reported) may take when elevated heartbeat Enalapril Maleate 20 Mg Tablet, 20 MG PO DAILY, (Reported) Fenofibrate,Micronized 200 Mg Capsule, 200 MG PO DAILY, (Reported) Fish Oil/Dha/Epa 1 Each Capsule, 1,200 MG PO BID, (Reported) Levocetirizine Dihydrochloride 5 Mg Tablet, 5 MG PO DAILY PRN for ALLERGIES, ( Reported) Magnesium Oxide 400 Mg Tablet, 400 MG PO DAILY, (Reported) Omeprazole 40 Mg Capsule.dr, 40 MG PO DAILY, (Reported) Raloxifene HCl 60 Mg Tablet, 60 MG PO DAILY, (Reported) Sertraline HCl 50 Mg Tablet, 50 MG PO DAILY, (Reported) Tramadol HCl 50 Mg Tablet, 25-50 MG PO Q6H PRN for PAIN-MODERATE, (Reported) Vitamin E Acetate 400 Unit Capsule, 400 UNIT PO DAILY, (Reported) [Sotalol Hcl] 80 MG TAB, 80 MG PO BID, #60 Ref 4 Prescribed by: RENÉ PRICE on 12/08/17 0856 Physical Exam-Cardiology Physical Exam Vital Signs/I&O Vital Sign - Last 12Hours 12/09/17 12/09/17 12/09/17 11:37 13:28 14:20 Temp 98.0 Pulse 129 114 117 Resp 18 18 18 B/P (MAP) 108/87 (94) 107/81 Pulse Ox 100 98 98 Capillary Refill : Less Than 3 Seconds Constitutional: No appears stated age, No AAO x 3, No apparent distress, No PERRL, No well-developed, No well-nourished, No other HEENT: No PERRL, No normal ENT inspection, No TMs normal, No pharynx normal, No scleral icterus (R), No scleral icterus (L), No pale conjunctivae (R), No pale conjunctivae (L), No photophobia, No TM abnormal (R), No TM abnormal (L), No pharyngeal erythema, No tonsillar exudate, No other, No discharge, No EOMI, No hearing is well preserved, No hard of hearing, No oral hygience is good, No ulceration, No xanthelasmas are seen Neck: No non-tender, No full range of motion, No supple, No normal inspection, No carotid bruit, No limited range of motion, No lymphadenopathy (R), No lymphadenopathy (L), No tender lateral, No tender midline, No thyromegaly, No other, No carotid pulses are 2 + bilaterally, No with good upstrokes Respiratory: No accessory muscle use, No respiratory distress, No chest tender , No chest expansion is symmetric, No chest is bilaterally symmetric, No lungs clear to percussion, No lungs clear to auscultation, No crackles, No rhonchi, No rales, No stridor, No wheezing, No pleural rub, No other Cardiovascular: No regular rate-rhythm, irregularly irregular, No extra beats, No parasternal heave is noted, No JVD, No edema, No bradycardia, tachycardia, No point of maximal impulse, No cardiac thrills are palpable, S1 and S2, No gallop/S3, No gallop/S4, No diastolic murmur, No systolic murmur, No friction rub, No click, No other Gastrointestinal: No tender, No soft, No round, No distended, No pulsatile mass , No organomegaly, No guarding, No rebound, No tenderness, No hernia, No mass, No audible bowel sounds, No abnormal bowel sounds, No abdominal bruits, No spleenomegaly, No other Rectal: deferred Extremities: No normal range of motion, No non-tender, No normal inspection, No pedal edema, No calf tenderness, No normal capillary refill, No pelvis stable , No calf tenderness, No inflammation, No pedal edema, No slow capillary refill , No swelling, No other, No abrasion, No clubbing, No cyanosis, No ecchymosis, No laceration, No no lower extremity edema bilateral, No significant edema, No tenderness, No wound Neurologic/Psychiatric: No system dispatcher II-XII nml as tested, No no motor/sensory deficits, No alert, No normal mood/affect, No oriented x 3, No abnormal cerebellar tests, No abnormal system dispatcher II-XII, No abnormal gait, No aphasia, No EOM palsy, No facial droop, No motor weakness, No sensory deficit, No depressed affect, No disoriented x 3, No other, No grossly intact, No power is 5/5 both on sides Skin: No normal color, No warm/dry, No cyanosis, No cool, No diaphoresis, No damp, No ecchymosis, No jaundice, No mottled, No pallor, No rash, No tattoos/ piercings, No ulcerations, No rash on exposed areas, No ulcerations on exposed areas, No other Data Review Labs Laboratory Tests 12/09/17 11:50: White Blood Count 6.1, Red Blood Count 4.28L, Hemoglobin 12.5, Hematocrit 36, Mean Corpuscular Volume 85, Mean Corpuscular Hemoglobin 29, Mean Corpuscular Hemoglobin Concent 35, Red Cell Distribution Width 15.1H, Platelet Count 401H, Mean Platelet Volume 10.5H, Neutrophils (%) (Auto) 60, Lymphocytes (%) (Auto) 29 , Monocytes (%) (Auto) 8, Eosinophils (%) (Auto) 2, Basophils (%) (Auto) 1, Neutrophils # (Auto) 3.7, Lymphocytes # (Auto) 1.8, Monocytes # (Auto) 0.5, Eosinophils # (Auto) 0.1, Basophils # (Auto) 0.0, Prothrombin Time 16.0H, INR Comment 1.3, Activated Partial Thromboplast Time 38H, Sodium Level 137, Potassium Level 4.8, Chloride Level 102, Carbon Dioxide Level 22, Anion Gap 13, Blood Urea Nitrogen 23H, Creatinine 0.90, Estimat Glomerular Filtration Rate > 60, BUN/Creatinine Ratio 26, Glucose Level 58*L, Calcium Level 9.6, Magnesium Level 2.6H, Total Bilirubin 0.4, Aspartate Amino Transf (AST/SGOT) 34, Alanine Aminotransferase (ALT/SGPT) 16, Alkaline Phosphatase 61, Troponin I < 0.30, B- Type Natriuretic Peptide 260.4H, Total Protein 8.0, Albumin 4.4 12/09/17 14:03: Glucometer 93 ECG Impression ECG Initial ECG Rhythm: A Fib/Flutter Comment Atrial flutter with 2-1 AV block A/P-Cardiology Assessment/Admission Diagnosis Persistent atrial flutter/atrial fibrillation Syncope Nonsustained ventricular tachycardia Hypertension Plan Paroxysmal atrial fibrillation/flutter-She was on flecainide where she was noted to have multiple episodes of wide-complex tachycardia, electrolytes were normal. Medication was discontinued. Patient underwent ablation with Dr. Kelly in [facility] February 2016. Underwent ROSIO with cardioversion October 2017, however, patient is back in atrial flutter today with heart rate 120s. She is currently maintained on Toprol-XL 50 g twice daily, Cardizem CD 120 mg daily. Was on Multaq, QTC is prolonged, multaq was stopped and sotalol 80 mg twice a day started. Cardioversion was performed very recently and she was started on sotalol 80 mg as mentioned earlier. She was discharged a couple of days ago in sinus rhythm. She presents back with atrial flutter. I will start her on IV Cardizem. Will increase her dose of sotalol to 120 mg twice a day. Monitor QTc interval. Syncope, PO2 be orthostatic due to tachycardia and hypotension, underlying malignant arrhythmia cannot be entirely excluded especially with a history of ventricular tachycardia, I will continue to monitor closely, planning to consider stress test in preparation for the ablation [id number] score is 3, yearly risk of stroke without oral anticoagulation is 3.2 percent which is considered high risk for stroke, maintained on Eliquis. Continue to monitor. Nonobstructive coronary artery disease per cardiac catheterization done on October 30, 2015, questionable T-wave inversion while she was in sinus rhythm, I will monitor EKG and will consider Lexiscan stress test after the cardioversion Nonsustained ventricular tachycardia in the past, multiple episodes of wide- complex tachycardia appeared to be nonsustained, patient was on flecainide at that time, cardiac catheterization was done in October 2015 and it was normal. continue to monitor Multiple episodes of wide-complex tachycardia, appeared to be nonsustained ventricular tachycardia, patient was on flecainide, cardiac catheterization was done in October 2015 and was normal, flecainide was discontinued. No further episodes since then. Hypertension, monitor blood pressure Hyperlipidemia, intolerant to statins secondary to history of elevated LFTs. Maintained on fenofibrate. Continue to monitor. History of intolerance to amiodarone secondary to elevated LFTs. Gastroesophageal reflux disease-continue current medication. Mild bilateral carotid stenosis, last ultrasound was done in May 2017, continue to monitor Hyperthyroidism- follows with basket assembler. Thank you for your consultation. Please call me if you have any questions. Alyce Harris MD, FACP, FACC, FSCAI, FHRS, CCDS Interventional Cardiology Cardiac Electrophysiology Vascular Medicine and Endovascular Interventions Heron HARRIS MD Dec 09, 2017 2:47 pm
[2017-12-09] MEDS ORDERED: CATHETER FLUSH 10 ML SYR IV PRN (15:00)
[2017-12-09] MEDS ORDERED: NS IV 1000 ML 1,000 ML IV SCH (15:00)
[2017-12-09] MEDS ORDERED: SOTA80TA PO (15:03)
--- NOTE | 2017-12-09 15:11 | Consultation-Hospitalist ---
HPI History of Present Illness: HPI/Chief Complaint Pt is a 72yoCF known to me from recent admission with discharge yesterday who presented to the ER with tachycardia. She reports she felt well yesterday until she got home and was more active. She noticed that her heart rate was going up with any activity so she called Dr. Price's office's who advised her to seek evaluation in the ER. In the ER she was found to be in sinus tach with a rate of 120 though going up to rates of 140-150s. She was started on Cardizem gtt and Sotalol was increased and admitted to the ICU. I am consulted for medical management. Source: patient Date Seen 12/09/17 Attending Physician Heron Harris MD PCP Sung Dunn DO Referring Physician Date of Admission Dec 09, 2017 at 1:05 pm Home Medications & Allergies Home Medications Reviewed patient Home Medication Reconciliation Form Allergies Allergies Coded Allergies Sulfa (Sulfonamide Antibiotics) (Verified Allergy, Severe, HIVES, 11/14/17) amoxicillin (Verified Allergy, Unknown, hives, 11/09/16) clavulanic acid (Verified Allergy, Unknown, hives, 11/09/16) Past Fyzcpci-Nmjejc-Umtwio Hx Patient Social History Alcohol Use: Denies Use Alcohol Beverage of Choice: Wine Recreational Drug Use: No Smoking Status: Never a Smoker 2nd Hand Smoke Exposure: No Recent Foreign Travel: No Contact w/other who traveled: No Recent Hopitalizations: Yes (a-fib couple times since SEPTEMBER 02) Recent Infectious Disease Expo: No Immunizations Up To Date Tetanus Booster (TDap): Unknown Pediatric: No Date of Pneumonia Vaccine: Sep 22, 2015 Date of Influenza Vaccine: Sep 01, 2017 Seasonal Allergies Seasonal Allergies: No Surgeries Yes (BACK SURGERY 2008; BILAT TKR; CARDIAC ABLATION) Appendectomy, Cardiac, Orthopedic Respiratory No Cardiovascular Yes (IMPLANTED HEART MONITOR PLACED BEGINNING OF 2015; ATRIAL TACHYCARDIA; VENTRICULAR TACHYCARDIA) Atrial Fibrillation, Hypertension Neurological No Reproductive System Hx Reproductive Disorders: No Sexually Transmitted Disease: No Genitourinary No Gastrointestinal Yes Gastroesophageal Reflux Musculoskeletal Yes (BACK SURGERY 2008-MILD PAIN-6 SCREWS AND 2 RODS) Arthritis, Chronic Back Pain Endocrine History of Endocrine Disorders: No HEENT History of HEENT Disorders: No Cancer No Psychosocial History of Psychiatric Problem: Yes Behavioral Health Disorders: Anxiety, Depression Integumentary History of Skin or Integumenta: No Blood Transfusions History of Blood Disorders: No Adverse Reaction to a Blood Tr: No Family Medical History Significant Family History: Heart Disease Family Hx: Cardiovascular disease 19 FATHER (mi) Dementia 19 MOTHER Review of Systems Constitutional: No chills, No fever EENTM: No blurred vision, No double vision, No nose congestion, No throat pain Respiratory: No cough, No dyspnea on exertion, short of breath Cardiovascular: No chest pain, No edema, palpitations, syncope (last week) Gastrointestinal: No abdominal pain, No constipation, No diarrhea, No nausea, No vomiting Genitourinary: No dysuria, No frequency Musculoskeletal: No joint pain, No muscle pain Skin: No lesions, No rash Psychiatric/Neurological: Denies Headache, Denies Numbness, Denies Tingling Physical Exam Physical Exam Vital Signs Vital Sign - Last 12Hours 12/09/17 11:37 Temp 98.0 Pulse 129 Resp 18 B/P (MAP) 108/87 (94) Pulse Ox 100 Capillary Refill : Less Than 3 Seconds General Appearance: No Apparent Distress, WD/WN HEENT: PERRL/EOMI, Moist Mucous Membranes Neck: Non Tender, Supple Respiratory: Lungs Clear, No Respiratory Distress Cardiovascular: No JVD, Tachycardia Gastrointestinal: Normal Bowel Sounds, Non Tender, Soft Extremity: Normal Capillary Refill, No Calf Tenderness Neurologic/Psychiatric: Alert, Oriented x3, Normal Mood/Affect Skin: Normal Color, Warm/Dry Results Results/Procedures Lab Laboratory Tests 12/09/17 11:50 Assessment/Plan Admission Diagnosis atrial tachycardia Diagnosis/Problems Diagnosis/Problems (1) Atrial fib/flutter, transient Status: Acute Assessment & Plan: Management per Dr. Harris On Cardizem gtt and on Sotalol (2) Essential (primary) hypertension Assessment & Plan: BP low to normotensive on cardizem gtt and sotalol Hold other home antihypertensives (3) Anxiety Assessment & Plan: Will resume her home meds (Xanax, Buspar, and Zoloft) (4) Osteoporosis Assessment & Plan: Resume raloxifene DIOGO LIZAMA MD Dec 09, 2017 3:10 pm
[2017-12-09] MEDS: DILTIAZEM DRIP 125 MG/D5W 100 ML TOTAL VOLUME 125 ML IV SCH ×2 (15:17)
[2017-12-09] MEDS ORDERED: RX-TRAMADOL 50 MG (ULTRAM) TAB PPK#4 PO PRN (15:30)
[2017-12-09] MEDS: SOTALOL 80 MG (BETAPACE) TAB PO SCH (21:37)
[2017-12-09] MEDS: ALPRAZolam 1 MG (XANAX) TAB PO SCH (21:38)
[2017-12-09] MEDS: busPIRone 10 MG (BUSPAR) TAB PO SCH (21:38)
[2017-12-10] VITALS (24 sets, daily range): BP systolic 90–154; BP diastolic 50–92
[2017-12-10 04:28] LABS: BASOPHILS % (AUTO) 1 % (0-10); EOSINOPHILS # (AUTO) 0.1 10^3/uL (0.0-0.3); EOSINOPHILS % (AUTO) 2 % (0-10); HEMATOCRIT 32 % (35-52); HEMOGLOBIN 10.7 G/DL (11.5-16.0); LYMPHOCYTES % (AUTO) 37 % (12-44); MEAN CORPUSCULAR HEMOGLOBIN 29 PG (25-34); MEAN CORPUSCULAR HGB CONC 34 G/DL (32-36); MEAN CORPUSCULAR VOLUME 87 FL (80-99); MEAN PLATELET VOLUME 10.6 FL (7.4-10.4); MONOCYTES # (AUTO) 0.4 X 10^3 (0.0-1.0); MONOCYTES % (AUTO) 7 % (0-12); NEUTROPHILS # (AUTO) 2.8 X 10^3 (1.8-7.8); NEUTROPHILS % (AUTO) 53 % (42-75); PLATELET COUNT 320 10^3/uL (130-400); RED BLOOD COUNT 3.68 10^6/uL (4.35-5.85); RED CELL DISTRIBUTION WIDTH 15.2 % (10.0-14.5); WHITE BLOOD COUNT 5.2 10^3/uL (4.3-11.0)
[2017-12-10 04:47] LABS: ALANINE AMINOTRANSFERASE 10 U/L (0-55); ALBUMIN 3.6 GM/DL (3.2-4.5); ALKALINE PHOSPHATASE 46 U/L (40-136); BILIRUBIN,TOTAL 0.3 MG/DL (0.1-1.0); BUN/CREATININE RATIO 22; CARBON DIOXIDE 23 MMOL/L (21-32); CHLORIDE 107 MMOL/L (98-107); CREATININE SERUM 0.81 MG/DL (0.60-1.30); GFR ESTIMATED > 60; GLUCOSE 86 MG/DL (70-105); POTASSIUM 3.9 MMOL/L (3.6-5.0); SODIUM 140 MMOL/L (135-145); TOTAL PROTEIN 6.6 GM/DL (6.4-8.2)
--- NOTE | 2017-12-10 07:40 | Progress Note-Hospitalist ---
Subjective HPI/CC On Admission Date Seen by Provider: Dec 10, 2017 Time Seen by Provider: 07:35 Pt is a 72yoCF known to me from recent admission with discharge yesterday who presented to the ER with tachycardia. She reports she felt well yesterday until she got home and was more active. She noticed that her heart rate was going up with any activity so she called Dr. Price's office's who advised her to seek evaluation in the ER. In the ER she was found to be in sinus tach with a rate of 120 though going up to rates of 140-150s. She was started on Cardizem gtt and Sotalol was increased and admitted to the ICU. I am consulted for medical management. Subjective/Events-last exam Pt reports doing well. No complaints. Per RN Cardizem gtt was stopped last night at 8pm. Has been somewhat bradycardiac overnight. Objective Exam Vital Signs Vital Sign - Last 12Hours 12/09/17 11:37 Temp 98.0 Pulse 129 Resp 18 B/P (MAP) 108/87 (94) Pulse Ox 100 Capillary Refill : Less Than 3 Seconds General Appearance: No Apparent Distress, WD/WN Cardiovascular: No JVD, Irregularly Irregular Gastrointestinal: Normal Bowel Sounds, Non Tender, Soft Extremity: No Pedal Edema Neurologic/Psychiatric: Alert, Oriented x3, Normal Mood/Affect Results/Procedures Lab Laboratory Tests 12/09/17 11:50 12/10/17 03:55 Assessment/Plan Assessment and Plan Assess & Plan/Chief Complaint a-fib with rvr Diagnosis/Problems Diagnosis/Problems (1) Atrial fib/flutter, transient Status: Acute Assessment & Plan: Now off Cardizem gtt On Sotalol Management per Dr Harris (2) Essential (primary) hypertension Assessment & Plan: BP low to normotensive still on only sotalol Hold other home antihypertensives (3) Anxiety Assessment & Plan: Cont home meds (Xanax, Buspar, and Zoloft) (4) Osteoporosis Assessment & Plan: Cont raloxifene (5) Normocytic anemia Assessment & Plan: Mild, trend If dropps below 10 will start oral iron DIOGO LIZAMA MD Dec 10, 2017 7:40 am
[2017-12-10] MEDS: ALPRAZolam 1 MG (XANAX) TAB PO SCH ×2 (09:53→21:27)
[2017-12-10] MEDS: SOTALOL 80 MG (BETAPACE) TAB PO SCH ×2 (09:53→21:21)
[2017-12-10] MEDS: raLOXifene 60 MG (EVISTA) TAB PO SCH (09:54)
[2017-12-10] MEDS: APIXABAN 5 MG (ELIQUIS) TABLET PO SCH ×2 (09:55→21:27)
[2017-12-10] MEDS: busPIRone 10 MG (BUSPAR) TAB PO SCH ×2 (09:55→21:27)
[2017-12-10] MEDS: SERTRALINE 50 MG (ZOLOFT) TABLET PO SCH (09:55)
--- NOTE | 2017-12-10 09:56 | Cardiology Progress Note ---
Cardiology SOAP Progress Note Subjective: No cardiac complaints. Objective: I&O/Vital Signs Vital Sign - Last 12Hours 12/09/17 12/10/17 12/10/17 12/10/17 23:00 00:00 00:00 00:00 Temp 98.0 Pulse 54 55 Resp 14 34 B/P (MAP) 85/59 (68) 90/63 (72) Pulse Ox 94 95 94 O2 Delivery Room Air Room Air Room Air 12/10/17 12/10/17 12/10/17 12/10/17 01:00 01:00 02:00 03:00 Pulse 52 75 64 54 Resp 16 15 16 B/P (MAP) 91/57 (68) 104/65 (78) 97/60 (72) Pulse Ox 95 94 O2 Delivery Room Air Room Air Room Air 12/10/17 12/10/17 12/10/17 12/10/17 04:00 04:00 04:00 05:00 Temp 97.6 Pulse 52 61 Resp 18 17 B/P (MAP) 108/50 (69) 102/60 (74) Pulse Ox 98 97 92 O2 Delivery Room Air Room Air Room Air 12/10/17 12/10/17 12/10/17 06:00 07:00 07:00 Pulse 55 57 57 Resp 16 12 B/P (MAP) 109/66 (80) 106/70 (82) Pulse Ox 93 97 O2 Delivery Room Air Room Air Intake and Output 12/10/17 00:00 Intake Total 1100 ml Balance 1100 ml Weight (Pounds): 160 Weight (Ounces): 7.0 Weight (Calculated Kilograms): 72.339520 Constitutional: No appears stated age, No AAO x 3, No apparent distress, No PERRL, No well-developed, No well-nourished, No other Respiratory: No accessory muscle use, No respiratory distress, No chest tender , No chest expansion is symmetric, No chest is bilaterally symmetric, No lungs clear to percussion, No lungs clear to auscultation, No crackles, No rhonchi, No rales, No stridor, No wheezing, No pleural rub, No other Cardiovascular: regular rate-rhythm, No irregularly irregular, No extra beats, No parasternal heave is noted, No JVD, No edema, No bradycardia, tachycardia, No point of maximal impulse, No cardiac thrills are palpable, S1 and S2, No gallop/S3, No gallop/S4, No diastolic murmur, No systolic murmur, No friction rub, No click, No other Gastrointestional: No tender, No soft, No round, No distended, No pulsatile mass, No organomegaly, No guarding, No rebound, No tenderness, No hernia, No mass, No audible bowel sounds, No abnormal bowel sounds, No abdominal bruits, No spleenomegaly, No other Extremities: No normal range of motion, No non-tender, No normal inspection, No pedal edema, No calf tenderness, No normal capillary refill, No pelvis stable , No calf tenderness, No inflammation, No pedal edema, No slow capillary refill , No swelling, No other, No abrasion, No clubbing, No cyanosis, No ecchymosis, No laceration, No no lower extremity edema bilateral, No significant edema, No tenderness, No wound Neurologic/Psychiatric: No cloud operations engineer II-XII nml as tested, No no motor/sensory deficits, No alert, No normal mood/affect, No oriented x 3, No abnormal cerebellar tests, No abnormal cloud operations engineer II-XII, No abnormal gait, No aphasia, No EOM palsy, No facial droop, No motor weakness, No sensory deficit, No depressed affect, No disoriented x 3, No other, No grossly intact, No power is 5/5 both on sides Skin: No normal color, No warm/dry, No cyanosis, No cool, No diaphoresis, No damp, No ecchymosis, No jaundice, No mottled, No pallor, No rash, No tattoos/ piercings, No ulcerations, No rash on exposed areas, No ulcerations on exposed areas, No other Results/Procedures: Labs Laboratory Tests 12/09/17 11:50: White Blood Count 6.1, Red Blood Count 4.28L, Hemoglobin 12.5, Hematocrit 36, Mean Corpuscular Volume 85, Mean Corpuscular Hemoglobin 29, Mean Corpuscular Hemoglobin Concent 35, Red Cell Distribution Width 15.1H, Platelet Count 401H, Mean Platelet Volume 10.5H, Neutrophils (%) (Auto) 60, Lymphocytes (%) (Auto) 29 , Monocytes (%) (Auto) 8, Eosinophils (%) (Auto) 2, Basophils (%) (Auto) 1, Neutrophils # (Auto) 3.7, Lymphocytes # (Auto) 1.8, Monocytes # (Auto) 0.5, Eosinophils # (Auto) 0.1, Basophils # (Auto) 0.0, Prothrombin Time 16.0H, INR Comment 1.3, Activated Partial Thromboplast Time 38H, Sodium Level 137, Potassium Level 4.8, Chloride Level 102, Carbon Dioxide Level 22, Anion Gap 13, Blood Urea Nitrogen 23H, Creatinine 0.90, Estimat Glomerular Filtration Rate > 60, BUN/Creatinine Ratio 26, Glucose Level 58*L, Calcium Level 9.6, Magnesium Level 2.6H, Total Bilirubin 0.4, Aspartate Amino Transf (AST/SGOT) 34, Alanine Aminotransferase (ALT/SGPT) 16, Alkaline Phosphatase 61, Troponin I < 0.30, B- Type Natriuretic Peptide 260.4H, Total Protein 8.0, Albumin 4.4 12/09/17 14:03: Glucometer 93 12/10/17 03:55: White Blood Count 5.2, Red Blood Count 3.68L, Hemoglobin 10.7L, Hematocrit 32L, Mean Corpuscular Volume 87, Mean Corpuscular Hemoglobin 29, Mean Corpuscular Hemoglobin Concent 34, Red Cell Distribution Width 15.2H, Platelet Count 320, Mean Platelet Volume 10.6H, Neutrophils (%) (Auto) 53, Lymphocytes (%) (Auto) 37 , Monocytes (%) (Auto) 7, Eosinophils (%) (Auto) 2, Basophils (%) (Auto) 1, Neutrophils # (Auto) 2.8, Lymphocytes # (Auto) 2.0, Monocytes # (Auto) 0.4, Eosinophils # (Auto) 0.1, Basophils # (Auto) 0.0, Sodium Level 140, Potassium Level 3.9, Chloride Level 107, Carbon Dioxide Level 23, Anion Gap 10, Blood Urea Nitrogen 18, Creatinine 0.81, Estimat Glomerular Filtration Rate > 60, BUN/ Creatinine Ratio 22, Glucose Level 86, Calcium Level 9.0, Total Bilirubin 0.3, Aspartate Amino Transf (AST/SGOT) 19, Alanine Aminotransferase (ALT/SGPT) 10, Alkaline Phosphatase 46, Total Protein 6.6, Albumin 3.6 A/P: Assessment/Dx: Persistent atrial flutter/atrial fibrillation converted to sinus rhythm overnight. Syncope Nonsustained ventricular tachycardia Hypertension Plan: Paroxysmal atrial fibrillation/flutter-She was on flecainide where she was noted to have multiple episodes of wide-complex tachycardia, electrolytes were normal. Medication was discontinued. Patient underwent ablation with Dr. Kelly in [facility] February 2016. Underwent ROSIO with cardioversion October 2017, however, patient is back in atrial flutter today with heart rate 120s. She is currently maintained on Toprol-XL 50 g twice daily, Cardizem CD 120 mg daily. Was on Multaq, QTC is prolonged, multaq was stopped and sotalol 80 mg twice a day started. Cardioversion was performed very recently and she was started on sotalol 80 mg as mentioned earlier. She was discharged a couple of days ago in sinus rhythm. She presents back with atrial flutter. I will start her on IV Cardizem. Will increase her dose of sotalol to 120 mg twice a day. Monitor QTc interval. She self converted to sinus rhythm overnight. Denied dose of sotalol was held due to sinus bradycardia. I have requested that they gave the morning dose of sotalol with before and after EKGs. I will discuss with Dr. Hudson at to see if there is something else he would like me to do. Syncope, PO2 be orthostatic due to tachycardia and hypotension, underlying malignant arrhythmia cannot be entirely excluded especially with a history of ventricular tachycardia, I will continue to monitor closely, planning to consider stress test in preparation for the ablation [id number] score is 3, yearly risk of stroke without oral anticoagulation is 3.2 percent which is considered high risk for stroke, maintained on Eliquis. Continue to monitor. Nonobstructive coronary artery disease per cardiac catheterization done on October 30, 2015, questionable T-wave inversion while she was in sinus rhythm, I will monitor EKG and will consider Lexiscan stress test after the cardioversion Nonsustained ventricular tachycardia in the past, multiple episodes of wide- complex tachycardia appeared to be nonsustained, patient was on flecainide at that time, cardiac catheterization was done in October 2015 and it was normal. continue to monitor Multiple episodes of wide-complex tachycardia, appeared to be nonsustained ventricular tachycardia, patient was on flecainide, cardiac catheterization was done in October 2015 and was normal, flecainide was discontinued. No further episodes since then. Hypertension, monitor blood pressure Hyperlipidemia, intolerant to statins secondary to history of elevated LFTs. Maintained on fenofibrate. Continue to monitor. History of intolerance to amiodarone secondary to elevated LFTs. Gastroesophageal reflux disease-continue current medication. Mild bilateral carotid stenosis, last ultrasound was done in May 2017, continue to monitor Hyperthyroidism- follows with service secretary. Thank you for your consultation. Please call me if you have any questions. Alyce Harris MD, FACP, FACC, FSCAI, FHRS, CCDS Interventional Cardiology Cardiac Electrophysiology Vascular Medicine and Endovascular Interventions Heron HARRIS MD Dec 10, 2017 09:56
[2017-12-10] MEDS: DILTIAZEM DRIP 125 MG/D5W 100 ML TOTAL VOLUME 125 ML IV SCH ×2 (14:37)
[2017-12-11] VITALS (14 sets, daily range): BP systolic 118–176; BP diastolic 78–106
[2017-12-11 04:40] LABS: BASOPHILS % (AUTO) 1 % (0-10); EOSINOPHILS # (AUTO) 0.2 10^3/uL (0.0-0.3); EOSINOPHILS % (AUTO) 3 % (0-10); HEMATOCRIT 31 % (35-52); HEMOGLOBIN 10.5 G/DL (11.5-16.0); LYMPHOCYTES # (AUTO) 1.8 X 10^3 (1.0-4.0); LYMPHOCYTES % (AUTO) 38 % (12-44); MEAN CORPUSCULAR HEMOGLOBIN 29 PG (25-34); MEAN CORPUSCULAR HGB CONC 34 G/DL (32-36); MEAN CORPUSCULAR VOLUME 87 FL (80-99); MEAN PLATELET VOLUME 10.1 FL (7.4-10.4); MONOCYTES # (AUTO) 0.4 X 10^3 (0.0-1.0); MONOCYTES % (AUTO) 8 % (0-12); NEUTROPHILS # (AUTO) 2.4 X 10^3 (1.8-7.8); NEUTROPHILS % (AUTO) 51 % (42-75); PLATELET COUNT 288 10^3/uL (130-400); RED BLOOD COUNT 3.59 10^6/uL (4.35-5.85); RED CELL DISTRIBUTION WIDTH 14.9 % (10.0-14.5); WHITE BLOOD COUNT 4.7 10^3/uL (4.3-11.0)
[2017-12-11 05:00] LABS: BUN/CREATININE RATIO 21; CARBON DIOXIDE 24 MMOL/L (21-32); CHLORIDE 106 MMOL/L (98-107); CREATININE SERUM 0.71 MG/DL (0.60-1.30); GFR ESTIMATED > 60; GLUCOSE 76 MG/DL (70-105); POTASSIUM 3.7 MMOL/L (3.6-5.0); SODIUM 141 MMOL/L (135-145)
[2017-12-11] MEDS: SOTALOL 80 MG (BETAPACE) TAB PO SCH ×2 (08:53→09:11)
[2017-12-11] MEDS: ALPRAZolam 1 MG (XANAX) TAB PO SCH ×2 (09:11→20:10)
[2017-12-11] MEDS: APIXABAN 5 MG (ELIQUIS) TABLET PO SCH ×2 (09:11→20:10)
[2017-12-11] MEDS: raLOXifene 60 MG (EVISTA) TAB PO SCH (09:11)
[2017-12-11] MEDS: SERTRALINE 50 MG (ZOLOFT) TABLET PO SCH (09:11)
[2017-12-11] MEDS: busPIRone 10 MG (BUSPAR) TAB PO SCH ×2 (09:11→20:10)
--- NOTE | 2017-12-11 10:09 | Cardiology Progress Note ---
Cardiology SOAP Progress Note Subjective: no complaints Objective: I&O/Vital Signs Vital Sign - Last 12Hours 12/10/17 12/11/17 12/11/17 12/11/17 23:00 00:00 00:00 01:00 Pulse 55 56 54 Resp 15 16 16 B/P (MAP) 143/80 (101) 118/81 (93) 129/82 (98) Pulse Ox 95 95 95 O2 Delivery Room Air Room Air Room Air Room Air 12/11/17 12/11/17 12/11/17 12/11/17 01:00 02:00 03:00 04:00 Pulse 55 59 53 54 Resp 17 14 27 B/P (MAP) 123/88 (100) 123/82 (96) 140/78 (98) Pulse Ox 94 94 O2 Delivery Room Air Room Air Room Air 12/11/17 12/11/17 12/11/17 12/11/17 04:00 05:00 06:00 07:00 Pulse 55 70 52 Resp 30 14 B/P (MAP) 160/106 (124) Pulse Ox 91 97 O2 Delivery Room Air Room Air Room Air 12/11/17 12/11/17 08:00 09:00 Pulse 67 78 Resp 18 16 B/P (MAP) 154/88 (110) 133/91 (105) Pulse Ox 98 97 O2 Delivery Room Air Room Air Intake and Output 12/11/17 00:00 Intake Total 1630 ml Output Total 1900 ml Balance -270 ml Weight (Pounds): 160 Weight (Ounces): 4.0 Weight (Calculated Kilograms): 72.422136 Constitutional: No appears stated age, No AAO x 3, No apparent distress, No PERRL, No well-developed, No well-nourished, No other Respiratory: No accessory muscle use, No respiratory distress, No chest tender , No chest expansion is symmetric, No chest is bilaterally symmetric, No lungs clear to percussion, No lungs clear to auscultation, No crackles, No rhonchi, No rales, No stridor, No wheezing, No pleural rub, No other Cardiovascular: regular rate-rhythm, No irregularly irregular, No extra beats, No parasternal heave is noted, No JVD, No edema, No bradycardia, tachycardia, No point of maximal impulse, No cardiac thrills are palpable, S1 and S2, No gallop/S3, No gallop/S4, No diastolic murmur, No systolic murmur, No friction rub, No click, No other Gastrointestional: No tender, No soft, No round, No distended, No pulsatile mass, No organomegaly, No guarding, No rebound, No tenderness, No hernia, No mass, No audible bowel sounds, No abnormal bowel sounds, No abdominal bruits, No spleenomegaly, No other Extremities: No normal range of motion, No non-tender, No normal inspection, No pedal edema, No calf tenderness, No normal capillary refill, No pelvis stable , No calf tenderness, No inflammation, No pedal edema, No slow capillary refill , No swelling, No other, No abrasion, No clubbing, No cyanosis, No ecchymosis, No laceration, No no lower extremity edema bilateral, No significant edema, No tenderness, No wound Neurologic/Psychiatric: No area plant manager II-XII nml as tested, No no motor/sensory deficits, No alert, No normal mood/affect, No oriented x 3, No abnormal cerebellar tests, No abnormal area plant manager II-XII, No abnormal gait, No aphasia, No EOM palsy, No facial droop, No motor weakness, No sensory deficit, No depressed affect, No disoriented x 3, No other, No grossly intact, No power is 5/5 both on sides Skin: No normal color, No warm/dry, No cyanosis, No cool, No diaphoresis, No damp, No ecchymosis, No jaundice, No mottled, No pallor, No rash, No tattoos/ piercings, No ulcerations, No rash on exposed areas, No ulcerations on exposed areas, No other Results/Procedures: Labs Laboratory Tests 12/11/17 04:30: White Blood Count 4.7, Red Blood Count 3.59L, Hemoglobin 10.5L, Hematocrit 31L, Mean Corpuscular Volume 87, Mean Corpuscular Hemoglobin 29, Mean Corpuscular Hemoglobin Concent 34, Red Cell Distribution Width 14.9H, Platelet Count 288, Mean Platelet Volume 10.1, Neutrophils (%) (Auto) 51, Lymphocytes (%) (Auto) 38 , Monocytes (%) (Auto) 8, Eosinophils (%) (Auto) 3, Basophils (%) (Auto) 1, Neutrophils # (Auto) 2.4, Lymphocytes # (Auto) 1.8, Monocytes # (Auto) 0.4, Eosinophils # (Auto) 0.2, Basophils # (Auto) 0.0, Sodium Level 141, Potassium Level 3.7, Chloride Level 106, Carbon Dioxide Level 24, Anion Gap 11, Blood Urea Nitrogen 15, Creatinine 0.71, Estimat Glomerular Filtration Rate > 60, BUN/ Creatinine Ratio 21, Glucose Level 76, Calcium Level 9.0 Microbiology 12/09/17 MRSA Screen - Final, Complete MRSA not isolated A/P: Assessment/Dx: Persistent atrial flutter/atrial fibrillation converted to sinus rhythm overnight. Syncope Nonsustained ventricular tachycardia Hypertension Plan: Paroxysmal atrial fibrillation/flutter-She was on flecainide where she was noted to have multiple episodes of wide-complex tachycardia, electrolytes were normal. Medication was discontinued. Patient underwent ablation with Dr. Kelly in [facility] February 2016. Underwent ROSIO with cardioversion October 2017, however, patient is back in atrial flutter today with heart rate 120s. She is currently maintained on Toprol-XL 50 g twice daily, Cardizem CD 120 mg daily. Was on Multaq, QTC is prolonged, multaq was stopped and sotalol 80 mg twice a day started. Cardioversion was performed very recently and she was started on sotalol 80 mg as mentioned earlier. She was discharged a couple of days ago in sinus rhythm. She presents back with atrial flutter. I will start her on IV Cardizem. Will increase her dose of sotalol to 120 mg twice a day. Monitor QTc interval. She self converted to sinus rhythm overnight. Denied dose of sotalol was held due to sinus bradycardia. I have requested that they gave the morning dose of sotalol with before and after EKGs. She continues to be in sinus rhythm with PVCs. She will continue on sotalol 120mg in the am and 80mg in the pm. We will try to arrange Cardiac CT for pre-afib ablation for (Dr Coulter). I will discuss with Dr. Hudson at to see if there is something else he would like me to do. Syncope, PO2 be orthostatic due to tachycardia and hypotension, underlying malignant arrhythmia cannot be entirely excluded especially with a history of ventricular tachycardia, I will continue to monitor closely, planning to consider stress test in preparation for the ablation [id number] score is 3, yearly risk of stroke without oral anticoagulation is 3.2 percent which is considered high risk for stroke, maintained on Eliquis. Continue to monitor. Nonobstructive coronary artery disease per cardiac catheterization done on October 30, 2015, questionable T-wave inversion while she was in sinus rhythm, I will monitor EKG and will consider Lexiscan stress test after the cardioversion Nonsustained ventricular tachycardia in the past, multiple episodes of wide- complex tachycardia appeared to be nonsustained, patient was on flecainide at that time, cardiac catheterization was done in October 2015 and it was normal. continue to monitor Multiple episodes of wide-complex tachycardia, appeared to be nonsustained ventricular tachycardia, patient was on flecainide, cardiac catheterization was done in October 2015 and was normal, flecainide was discontinued. No further episodes since then. Hypertension, monitor blood pressure Hyperlipidemia, intolerant to statins secondary to history of elevated LFTs. Maintained on fenofibrate. Continue to monitor. History of intolerance to amiodarone secondary to elevated LFTs. Gastroesophageal reflux disease-continue current medication. 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 Thank you for your consultation. Please call me if you have any questions. Alyce Harris MD, FACP, FACC, FSCAI, FHRS, CCDS Interventional Cardiology Cardiac Electrophysiology Vascular Medicine and Endovascular Interventions Heron HARRIS MD Dec 11, 2017 10:09 am
--- NOTE | 2017-12-11 14:42 | Progress Note-Hospitalist ---
Subjective HPI/CC On Admission Date Seen by Provider: Dec 11, 2017 Time Seen by Provider: 14:36 Pt is a 72yoCF known to me from recent admission with discharge yesterday who presented to the ER with tachycardia. She reports she felt well yesterday until she got home and was more active. She noticed that her heart rate was going up with any activity so she called Dr. Price's office's who advised her to seek evaluation in the ER. In the ER she was found to be in sinus tach with a rate of 120 though going up to rates of 140-150s. She was started on Cardizem gtt and Sotalol was increased and admitted to the ICU. I am consulted for medical management. Subjective/Events-last exam Pt reports feeling well today. Knows of plan for DC tomorrow and feels comfortable with that. ASked her about her thyroid history and reports she has followed with Endocrine and her thyroiditis has resolved. Objective Exam Vital Signs Vital Sign - Last 12Hours 12/09/17 11:37 Temp 98.0 Pulse 129 Resp 18 B/P (MAP) 108/87 (94) Pulse Ox 100 Capillary Refill : Less Than 3 Seconds General Appearance: No Apparent Distress, WD/WN Neck: No Thyromegaly Respiratory: Lungs Clear, No Respiratory Distress Cardiovascular: No Murmur, Bradycardia Gastrointestinal: Normal Bowel Sounds, Non Tender, Soft Neurologic/Psychiatric: Alert, Oriented x3 Results/Procedures Lab Laboratory Tests 12/11/17 04:30 Assessment/Plan Assessment and Plan Assess & Plan/Chief Complaint a-fib with rvr Diagnosis/Problems Diagnosis/Problems (1) Atrial fib/flutter, transient Status: Acute Assessment & Plan: On Sotalol Management per Dr Harris Will follow up with [facility] (2) Anxiety Assessment & Plan: Cont home meds (Xanax, Buspar, and Zoloft) (3) Essential (primary) hypertension Assessment & Plan: BP low to normotensive still on only sotalol Hold other home antihypertensives (4) Hypothyroidism Assessment & Plan: history of viral thyroiditis TSH 10 Will get T4 (5) Osteoporosis Assessment & Plan: Cont raloxifene (6) Normocytic anemia Assessment & Plan: Mild, trend If dropps below 10 will start oral iron DIOGO LIZAMA MD Dec 11, 2017 14:42
[2017-12-11] MEDS ORDERED: SOTALOL 80 MG (BETAPACE) TAB PO SCH (21:00)
[2017-12-12] VITALS (9 sets, daily range): BP systolic 123–158; BP diastolic 78–109
--- NOTE | 2017-12-12 07:55 | Progress Note-Hospitalist ---
Subjective HPI/CC On Admission Date Seen by Provider: Dec 12, 2017 Time Seen by Provider: 07:30 Pt is a 72yoCF known to me from recent admission with discharge yesterday who presented to the ER with tachycardia. She reports she felt well yesterday until she got home and was more active. She noticed that her heart rate was going up with any activity so she called Dr. Price's office's who advised her to seek evaluation in the ER. In the ER she was found to be in sinus tach with a rate of 120 though going up to rates of 140-150s. She was started on Cardizem gtt and Sotalol was increased and admitted to the ICU. I am consulted for medical management. Subjective/Events-last exam Doing well. Did complain of some chest and shoulder pain that resolved with tramadol. Review of Systems Pulmonary: No Dyspnea Cardiovascular: No: Palpitations Gastrointestinal: No: Nausea Musculoskeletal: shoulder pain Objective Exam Vital Signs Vital Sign - Last 12Hours 12/09/17 11:37 Temp 98.0 Pulse 129 Resp 18 B/P (MAP) 108/87 (94) Pulse Ox 100 Capillary Refill : Less Than 3 Seconds General Appearance: No Apparent Distress, WD/WN Respiratory: Lungs Clear, No Respiratory Distress Cardiovascular: No Murmur Gastrointestinal: Normal Bowel Sounds, Non Tender, Soft Extremity: Non Tender, No Calf Tenderness Neurologic/Psychiatric: Alert, Oriented x3 Assessment/Plan Assessment and Plan Assess & Plan/Chief Complaint a-fib with rvr Diagnosis/Problems Diagnosis/Problems (1) Atrial fib/flutter, transient Status: Acute Assessment & Plan: On Sotalol Management per Dr Harris Will follow up with [facility] (2) Anxiety Assessment & Plan: Cont home meds (Xanax, Buspar, and Zoloft) (3) Hypothyroidism Assessment & Plan: history of viral thyroiditis TSH 10 T4 normal- called and left message with Dr. Dunn's office on need to recheck in 1 month as outpatient (4) Essential (primary) hypertension Assessment & Plan: BP low to normotensive still on only sotalol Hold other home antihypertensives (5) Osteoporosis Assessment & Plan: Cont raloxifene (6) Normocytic anemia Assessment & Plan: Mild, trend If dropps below 10 will start oral iron DIOGO LIZAMA MD Dec 12, 2017 7:55 am
[2017-12-12] MEDS ORDERED: SOTALOL 80 MG (BETAPACE) TAB PO SCH (09:00)
[2017-12-12] MEDS: busPIRone 10 MG (BUSPAR) TAB PO SCH (09:22)
[2017-12-12] MEDS: ALPRAZolam 1 MG (XANAX) TAB PO SCH (09:23)
[2017-12-12] MEDS: APIXABAN 5 MG (ELIQUIS) TABLET PO SCH (09:23)
[2017-12-12] MEDS: raLOXifene 60 MG (EVISTA) TAB PO SCH (09:23)
[2017-12-12] MEDS: SERTRALINE 50 MG (ZOLOFT) TABLET PO SCH (09:24)
--- NOTE | 2017-12-12 10:24 | Cardiology Progress Note ---
Cardiology SOAP Progress Note Subjective: No cardiac complaints. Objective: I&O/Vital Signs Vital Sign - Last 12Hours 12/12/17 12/12/17 12/12/17 12/12/17 00:00 00:00 01:00 04:00 Temp 97.7 97.7 Pulse 55 66 54 B/P (MAP) 157/96 (116) 130/88 (102) O2 Delivery Room Air Room Air Room Air 12/12/17 12/12/17 12/12/17 12/12/17 04:00 07:00 07:36 07:40 Temp 97.3 Pulse 51 52 Resp 16 B/P (MAP) 154/88 (110) Pulse Ox 96 O2 Delivery Room Air Room Air Room Air Intake and Output 12/12/17 00:00 Intake Total 1120 ml Output Total 1600 ml Balance -480 ml Weight (Pounds): 157 Weight (Ounces): 4.0 Weight (Calculated Kilograms): [id number] Constitutional: No appears stated age, No AAO x 3, No apparent distress, No PERRL, No well-developed, No well-nourished, No other Respiratory: No accessory muscle use, No respiratory distress, No chest tender , No chest expansion is symmetric, No chest is bilaterally symmetric, No lungs clear to percussion, No lungs clear to auscultation, No crackles, No rhonchi, No rales, No stridor, No wheezing, No pleural rub, No other Cardiovascular: regular rate-rhythm, No irregularly irregular, No extra beats, No parasternal heave is noted, No JVD, No edema, No bradycardia, tachycardia, No point of maximal impulse, No cardiac thrills are palpable, S1 and S2, No gallop/S3, No gallop/S4, No diastolic murmur, No systolic murmur, No friction rub, No click, No other Gastrointestional: No tender, No soft, No round, No distended, No pulsatile mass, No organomegaly, No guarding, No rebound, No tenderness, No hernia, No mass, No audible bowel sounds, No abnormal bowel sounds, No abdominal bruits, No spleenomegaly, No other Extremities: No normal range of motion, No non-tender, No normal inspection, No pedal edema, No calf tenderness, No normal capillary refill, No pelvis stable , No calf tenderness, No inflammation, No pedal edema, No slow capillary refill , No swelling, No other, No abrasion, No clubbing, No cyanosis, No ecchymosis, No laceration, No no lower extremity edema bilateral, No significant edema, No tenderness, No wound Neurologic/Psychiatric: No window draper II-XII nml as tested, No no motor/sensory deficits, No alert, No normal mood/affect, No oriented x 3, No abnormal cerebellar tests, No abnormal window draper II-XII, No abnormal gait, No aphasia, No EOM palsy, No facial droop, No motor weakness, No sensory deficit, No depressed affect, No disoriented x 3, No other, No grossly intact, No power is 5/5 both on sides Skin: No normal color, No warm/dry, No cyanosis, No cool, No diaphoresis, No damp, No ecchymosis, No jaundice, No mottled, No pallor, No rash, No tattoos/ piercings, No ulcerations, No rash on exposed areas, No ulcerations on exposed areas, No other Results/Procedures: Labs Microbiology 12/09/17 MRSA Screen - Final, Complete MRSA not isolated A/P: Assessment/Dx: Persistent atrial flutter/atrial fibrillation converted to sinus rhythm overnight. Syncope Nonsustained ventricular tachycardia Hypertension Plan: Paroxysmal atrial fibrillation/flutter-She was on flecainide where she was noted to have multiple episodes of wide-complex tachycardia, electrolytes were normal. Medication was discontinued. Patient underwent ablation with Dr. Kelly in [facility] February 2016. Underwent ROSIO with cardioversion October 2017, however, patient is back in atrial flutter today with heart rate 120s. She is currently maintained on Toprol-XL 50 g twice daily, Cardizem CD 120 mg daily. Was on Multaq, QTC is prolonged, multaq was stopped and sotalol 80 mg twice a day started. Cardioversion was performed very recently and she was started on sotalol 80 mg as mentioned earlier. She was discharged a couple of days ago in sinus rhythm. She presents back with atrial flutter. I will start her on IV Cardizem. Will increase her dose of sotalol to 120 mg twice a day. Monitor QTc interval. She self converted to sinus rhythm overnight. Denied dose of sotalol was held due to sinus bradycardia. I have requested that they gave the morning dose of sotalol with before and after EKGs. She continues to be in sinus rhythm with PVCs. She will continue on sotalol 120mg in the am and 80mg in the pm. We will try to arrange Cardiac CT for pre-afib ablation for (Dr Coulter). Hopefully we will be able to discharge her today if QTc interval stays below 500 ms. Will follow-up with myself in one week. I will discuss with Dr. Hudson at to see if there is something else he would like me to do. Syncope, PO2 be orthostatic due to tachycardia and hypotension, underlying malignant arrhythmia cannot be entirely excluded especially with a history of ventricular tachycardia, I will continue to monitor closely, planning to consider stress test in preparation for the ablation [id number] score is 3, yearly risk of stroke without oral anticoagulation is 3.2 percent which is considered high risk for stroke, maintained on Eliquis. Continue to monitor. Nonobstructive coronary artery disease per cardiac catheterization done on October 30, 2015, questionable T-wave inversion while she was in sinus rhythm, I will monitor EKG and will consider Lexiscan stress test after the cardioversion Nonsustained ventricular tachycardia in the past, multiple episodes of wide- complex tachycardia appeared to be nonsustained, patient was on flecainide at that time, cardiac catheterization was done in October 2015 and it was normal. continue to monitor Multiple episodes of wide-complex tachycardia, appeared to be nonsustained ventricular tachycardia, patient was on flecainide, cardiac catheterization was done in October 2015 and was normal, flecainide was discontinued. No further episodes since then. Hypertension, monitor blood pressure Hyperlipidemia, intolerant to statins secondary to history of elevated LFTs. Maintained on fenofibrate. Continue to monitor. History of intolerance to amiodarone secondary to elevated LFTs. Gastroesophageal reflux disease-continue current medication. Mild bilateral carotid stenosis, last ultrasound was done in May 2017, continue to monitor Hyperthyroidism- follows with flight surgeon. Thank you for your consultation. Please call me if you have any questions. Alyce Harris MD, FACP, FACC, FSCAI, FHRS, CCDS Interventional Cardiology Cardiac Electrophysiology Vascular Medicine and Endovascular Interventions Heron HARRIS MD Dec 12, 2017 10:24
[2017-12-12 12:12] LABS: BASOPHILS % (AUTO) 1 % (0-10); EOSINOPHILS # (AUTO) 0.2 10^3/uL (0.0-0.3); EOSINOPHILS % (AUTO) 3 % (0-10); HEMATOCRIT 33 % (35-52); HEMOGLOBIN 11.2 G/DL (11.5-16.0); LYMPHOCYTES # (AUTO) 1.5 X 10^3 (1.0-4.0); LYMPHOCYTES % (AUTO) 31 % (12-44); MEAN CORPUSCULAR HEMOGLOBIN 30 PG (25-34); MEAN CORPUSCULAR HGB CONC 34 G/DL (32-36); MEAN CORPUSCULAR VOLUME 87 FL (80-99); MEAN PLATELET VOLUME 10.2 FL (7.4-10.4); MONOCYTES # (AUTO) 0.4 X 10^3 (0.0-1.0); MONOCYTES % (AUTO) 7 % (0-12); NEUTROPHILS # (AUTO) 2.9 X 10^3 (1.8-7.8); NEUTROPHILS % (AUTO) 59 % (42-75); PLATELET COUNT 306 10^3/uL (130-400)
[2017-12-12 12:27] LABS: BUN/CREATININE RATIO 19; CALCIUM 9.5 MG/DL (8.5-10.1); CARBON DIOXIDE 24 MMOL/L (21-32); CHLORIDE 102 MMOL/L (98-107); CREATININE SERUM 0.75 MG/DL (0.60-1.30); GFR ESTIMATED > 60; GLUCOSE 97 MG/DL (70-105); POTASSIUM 4.1 MMOL/L (3.6-5.0); SODIUM 136 MMOL/L (135-145)
[2017-12-12] MEDS ORDERED: Sotalol Hcl PO ×2 (12:58)
--- NOTE | 2017-12-12 13:01 | Discharge Inst-Cardiology ---
Discharge Inst-Cardiac Patient Instructions Patient Instructions: continue sotalol 120 mg in the morning and 80 mg at night. Atrial fibrillation ablation at . Call us if back in atrial fibrillation. Goal: keep in sinus rhythm. [facility] For: atrial fibrillation Activity & Diet Discharge Diet: Cardiac Diet Drink 6-8 Glasses/Fluids/Day: Yes Activity as Tolerated: Yes Heron SINGH MD Dec 12, 2017 1:00 pm
--- NOTE | 2017-12-12 13:04 | Cardiology Discharge Summary ---
Diagnosis/Chief Complaint Date of Admission Dec 09, 2017 at 1:05 pm Date of Discharge 12/12/2017 Admission Diagnosis atrial flutter Final/Discharge Diagnosis sinus rhythm Chief Complaint/HPI Chief Complaint/HPI this is a 72-year-old lady who has history of hypertension.she has previous history of atrial fibrillation and underwent A. fib ablation and right atrial flutter ablation on 03/07/2016 in [place]. She has an implantable loop recorder and which showed no further episodes of atrial fibrillation still 09/22/2017 when she presented with atrial fibrillation with rapid ventricular rate. Transesophageal echocardiogram was performed by Dr. Price and cardioversion was done which was successful. multaq was started. She will also continue on oral anticoagulation. Previously she was on flecainide but resulted in wide complex tachycardia and therefore was discontinued. Her left atrium is moderately dilated. LV size and function is normal. She continued to have atrial flutter with 2-1 AV block with rapid ventricular rate. Cardioversion was performed on 11/03/2017 which was successful. However she presented recently to the hospital with atrial fibrillation and was cardioverted again by Dr. Price. She was started on sotalol 80 mg twice a day. She was discharged recently however presented back in atrial flutter/atrial fibrillation with palpitations and shortness of breath. Discharge Summary Procedures none Discharge Physical Examination stable in sinus rhythm Normal cardiorespiratory examination Hospital Course patient spontaneously converted to sinus rhythm. Due to sinus bradycardia patient will get sotalol 120 mg in the morning and 80 mg at night. Latest QTC was 476 ms. Pending Labs Laboratory Tests 12/12/17 12:03: White Blood Count 5.0, Red Blood Count 3.80, Hemoglobin 11.2, Hematocrit 33, Mean Corpuscular Volume 87, Mean Corpuscular Hemoglobin 30, Mean Corpuscular Hemoglobin Concent 34, Red Cell Distribution Width 15.0, Platelet Count 306, Mean Platelet Volume 10.2, Neutrophils (%) (Auto) 59, Lymphocytes (%) (Auto) 31 , Monocytes (%) (Auto) 7, Eosinophils (%) (Auto) 3, Basophils (%) (Auto) 1, Neutrophils # (Auto) 2.9, Lymphocytes # (Auto) 1.5, Monocytes # (Auto) 0.4, Eosinophils # (Auto) 0.2, Basophils # (Auto) 0.0, Sodium Level 136, Potassium Level 4.1, Chloride Level 102, Carbon Dioxide Level 24, Anion Gap 10, Blood Urea Nitrogen 14, Creatinine 0.75, Estimat Glomerular Filtration Rate > 60, BUN/ Creatinine Ratio 19, Glucose Level 97, Calcium Level 9.5, Troponin I < 0.30 Discussion & Recommendations Discussion discussed with the nurse at who works for Dr. Hudson. Discussed with the patient and nurse. All discharge instructions discussed. Discharge took over 30 minutes to complete. Follow up appt.: with Dr. Harris in one week. With Dr. Price in one to 2 weeks Dicharge Diet: Cardiac Diet Activity as Tolerated: Yes Home Medications Reviewed patient Home Medication Reconciliation Form Discharge Home Medications: Reviewed and agree with Discharge Medication list on patient's Discharge Instruction sheet Condition at discharge stable Instructions to patient/family stable Clinical Quality Measures DVT/VTE Risk/Contraindication: Risk Factor Score Per Nursin RFS Level Per Nursing on Admit: 2=Moderate Heron HARRIS MD Dec 12, 2017 1:04 pm
== END 2017-12-12 14:22 | disposition home or self-care (01) | DRG 310 ==
LOC: EDUNIT# 11:37 → ER 11:38 → ICU 13:05
PROVIDERS: ADMIT Internal Medicine Interventional Cardiology; ATTEND Internal Medicine Interventional Cardiology
DX: I48.92 Unspecified atrial flutter (principal); I48.1 Persistent atrial fibrillation; I44.39 Other atrioventricular block; I47.2 Ventricular tachycardia; I10 Essential (primary) hypertension; I25.10 Atherosclerotic heart disease of native coronary artery without angina pectoris; E78.5 Hyperlipidemia, unspecified; K21.9 Gastro-esophageal reflux disease without esophagitis; I65.23 Occlusion and stenosis of bilateral carotid arteries; E05.90 Thyrotoxicosis, unspecified without thyrotoxic crisis or storm; M19.91 Primary osteoarthritis, unspecified site; F41.9 Anxiety disorder, unspecified; F32.9 Major depressive disorder, single episode, unspecified; M81.0 Age-related osteoporosis without current pathological fracture; D64.9 Anemia, unspecified; Z79.01 Long term (current) use of anticoagulants; Z60.2 Problems related to living alone; Z96.653 Presence of artificial knee joint, bilateral
CPT/HCPCS: 36415; 71045; 71275; 80048; 80053; 82962; 83735; 83874; 83880; 84439; 84443; 84484; 85025; 85610; 85730; 87081; 93005; 93041; 96361; 96365; 96375

== ENCOUNTER → 2018-03-04 | Outpatient (CLI) | payer MEDICARE, OTHER ==
[~2018-03-04] MED LIST changes: -AMIO200T2 PO; +AMIO200T4 PO; +DILT120C82 PO; +SOTA120T PO; +SOTA80TA PO
--- NOTE | 2018-03-04 15:49 | Diagnostic Imaging Report ---
PROCEDURE: CT sinuses without contrast TECHNIQUE: Multiple contiguous axial images were obtained through the sinuses without the use of intravenous contrast. Coronal and sagittal reformations were then performed. INDICATION: Chronic pansinusitis. FINDINGS: The frontal sinus is clear. Ethmoid air cells and sphenoid sinus are clear. Bilateral maxillary sinuses are clear. No air-fluid levels are seen. Trace mucosal thickening in the inferior aspect of maxillary sinuses is noted bilaterally. The ostiomeatal complexes are patent bilaterally. There is some nasal septal deviation to the right. The mastoids are well aerated. IMPRESSION: Minimal maxillary sinus mucosal thickening. There are no findings to suggest acute sinusitis. Dictated by: Dictated on workstation # [id number]
== END ==
LOC: RAD 14:55
PROVIDERS: ATTEND Otolaryngology Otolaryngology/Facial Plastic Surgery
DX: J32.4 Chronic pansinusitis (principal)
CPT/HCPCS: 70486

== ENCOUNTER → 2018-03-20 | Outpatient (CLI) | payer MEDICARE, OTHER ==
[~2018-03-20] MED LIST changes: +AMIO200T2 PO; -AMIO200T4 PO
--- NOTE | 2018-03-23 18:04 | Diagnostic Imaging Report ---
Digital mammogram bilateral screening with 3D tomosynthesis. The current study was also evaluated with a Computer Aided Detection (CAD) system. This study was compared to the prior exam of 12/30/2016. At this time, there are no current complaints. FINDINGS: The fibroglandular tissue in both retroareolar regions is heterogeneously dense. This does limit the sensitivity of this exam. Overall, there does not appear to have been any significant change when compared to the prior study. There is no primary or secondary sign of malignancy noted. The loop recorder device along the medial aspect of the left breast seen previously is again evident and no different. The 3D tomographic views also fail to show any sign of malignancy. IMPRESSION: There is no evidence for malignancy. ACR BI-RADS Category 1: Negative. Result letter will be mailed to the patient. Note: At least 10% of breast cancer is not imaged by mammography. Dictated by: Dictated on workstation # [id number]
== END ==
LOC: RAD 14:40
PROVIDERS: ATTEND Internal Medicine
DX: Z12.31 Encounter for screening mammogram for malignant neoplasm of breast (principal)
CPT/HCPCS: 77067

== ENCOUNTER 2018-04-12 11:03 | Emergency (ER) | payer MEDICARE, OTHER ==
[~2018-04-12] VITALS: Ht 160 cm; Wt 71.3 kg
[~2018-04-12 11:03] MED LIST changes: -DILT120C82 PO; -SOTA120T PO
--- OUTSIDE RECORDS SUMMARY | 2018-04-12 11:10 | XMS REPORT | Clinical Summary ---
Author Author [facility] Organization [facility] Address Unknown Phone Unavailable Care Team Providers Care Aeronautical Design Engineer Name Role Phone Silverio Walker MD Unavailable Sung Dunn MD PCP Source Comments Some departments are not documenting in the electronic medical record. If you do not see the information that you expected, contact Release of Information in the Health Information Management department at [phone] for further assistance in locating additional records.[facility] Allergies Active Allergy Reactions Severity Noted Date Comments Flecainide SEE COMMENTS Low 01/21/2018 Wide complex tachycardia 09/2017 at OSH Penicillin G HIVES Medium 04/02/2017 Sulfa (Sulfonamide HIVES Medium 04/02/2017 Antibiotics) Tetracycline HIVES Medium 04/02/2017 Current Medications Prescription Sig. Disp. Refills Start End Date Status Date alprazolam (XANAX) 1 mg Take 1 mg by mouth twice Active PO tablet daily. 1 BY MOUTH TWICE A DAY apixaban (ELIQUIS) 5 mg Take 5 mg by mouth twice Active tab tablet daily. enalapril (VASOTEC) 2.5 Take 2.5 mg by mouth Active mg tablet daily. magnesium oxide (MAG-OX) Take 400 mg by mouth Active 400 mg tablet daily. pravastatin (PRAVACHOL) Take 40 mg by mouth Active 40 mg tablet daily. sertraline (ZOLOFT) 50 mg Take 50 mg by mouth Active tablet daily. sotalol (BETAPACE) 80 mg 1.5 tablet in morning, 1 270 tablet 3 Active tabletIndications: tablet in evening 18 Paroxysmal atrial fibrillation (HCC) busPIRone (BUSPAR) 10 mg Take 1 tablet by mouth 12/29/19 Active tablet twice daily. 18 Biotin 1 mg tab Take 1 tablet by mouth Active daily. fish oil- omega 3-DHA/EPA Take 1 capsule by mouth Active 300/1,000 mg capsule twice daily with meals. vitamin E 400 unit Take 400 Units by mouth Active capsule daily. OMEPRAZOLE (PRILOSEC PO) Take by mouth. 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 Encounters Date Type Specialty Care Team Description 04/07/2018 Orders Only Cardiology Gloria Verma RN Atrial fibrillation, unspecified type (HCC) (Primary Dx) 04/07/2018 Telephone Cardiology Jaye Martínez RN Other (CCTA requested, will call pt to schedule) 04/07/2018 Telephone Cardiology Marli Logan RN Test/procedure (Wants to schedule Cardiac CT scan) 03/30/2018 Telephone Cardiology Jaye Martínez RN Other (post ablation CCTA - needs to be at ) 03/30/2018 Documentation Cardiology Elina Grijalva RN 03/25/2018 Telephone Cardiology Marielena Gómez RN Other (Post ablation cta needed in April) 03/25/2018 Orders Only Cardiology Marielena Gómez RN Atrial fibrillation , unspecified type (HCC) (Primary Dx) 03/11/2018 Telephone Cardiology Alethea Rader RN 03/06/2018 Telephone Cardiology Awa Jessica RN Follow-up Phone Call 03/05/2018 Hospital Cardiology Vicente Coulter MD Encounter 03/05/2018 Office Visit Cardiology Vicente Coulter MD Cardiac Eval (s /p ablation) 03/05/2018 Ancillary Cardiology Vicente Coulter MD Atrial fibrillation, Orders unspecified type (HCC) 02/04/2018 Procedure visit Otolaryngology Silverio Walker MD Dysphonia (Primary Dx); Adductor spasmodic dysphonia with tremor 01/28/2018 Telephone Otolaryngology Silverio Walker MD Other ( botox question) 01/27/2018 Telephone Otolaryngology Silverio Walker MD Other 01/27/2018 Telephone Cardiology Meg Ledbetter RN Procedure (s/p LAAA 01/21); Other (small "knot" in groin) 01/22/2018 Pharmacy Visit 01/22/2018 Pharmacy Visit 01/21/2018 Hospital Cardiology Vicente Coulter MD Encounter 01/21/2018 Hospital Cardiology Vicente Coulter MD Atrial fibrillation (HCC) - Encounter 01/22/2018 01/21/2018 Procedure Pass Cardiology 01/21/2018 Surgery Cardiology Vicente Coulter MD INTRACARDIAC CATHETER ABLATION WITH COMPREHENSIVE ELECTROPHYSIOLOGIC EVALUATION - ATRIAL FIBRILLATION, TRANSEPTAL (REDO) 01/20/2018 Orders Only Cardiology Daisy Osman Paroxysmal atrial fibrillation (HCC) 01/20/2018 Telephone Cardiology Daisy Osman Labs Only (Pre procedure labs) 01/19/2018 Telephone Cardiology Awa Jessica RN Patient Questions 01/14/2018 Telephone Cardiology Yesy Tovar LPN 01/14/2018 Telephone Otolaryngology Silverio Walker MD Medication Question 01/14/2018 Telephone Cardiology Alethea Rader RN 01/13/2018 Pre-Admit Cardiology Alethea Rader RN Orders Only 01/01/2018 Anesthesia Cardiology Sophie Brennan, Kang CONTENT ARCHITECT from Last 3 Months Family History Medical [...] Vital Sign Reading Time Taken Blood Pressure 124/84 03/05/2018 1:56 PM CDT Pulse 60 03/05/2018 1:56 PM CDT Temperature 36.9 C (98.5 F) 01/22/2018 5:00 AM DOUBLE CUT OFF SAW OPERATOR Respiratory Rate - - Oxygen Saturation 97% 01/21/2018 11:00 PM DOUBLE CUT OFF SAW OPERATOR Inhaled Oxygen - - Concentration Weight 71.2 kg (157 lb) 03/05/2018 1:56 PM CDT Height 160 cm (5' 3") 03/05/2018 1:56 PM CDT Body Mass Index 27.81 03/05/2018 1:56 PM CDT Plan of Treatment Date Type Specialty Care Team Description 03/25/2018 Procedure Pass Cardiology Health Maintenance Due Date Last Done Comments HEPATITIS C SCREENING 1946 PHYSICAL (COMPREHENSIVE) 1953 EXAM PERTUSSIS VACCINE 1957 TETANUS VACCINE 1963 BREAST CANCER SCREENING 1986 COLORECTAL CANCER 1996 SCREENING OSTEOPOROSIS SCREENING 2011 PNEUMONIA (PCV13/PPSV23) 2011 VACCINES (1 of 2 - PCV13) INFLUENZA VACCINE 08/17/2018 09/24/2017 SHINGLES VACCINE Completed 02/03/2017 Implants Implanted Type Area Body Straightener Device Expiration Model / Identifier Date Serial / Lot Linq Other [employer] Procedures Procedure Name Priority Date/Time Associated Diagnosis Comments ECG-SCAN 04/07/2018 Results for this 12:26 PM CDT procedure are in the results section. BOTOX Routine 02/04/2018 Dysphonia Results for this (ONABOTULINUMTOXINA) 1:00 PM CDT Adductor spasmodic procedure are in the dysphonia with tremor results section. ECG-SCAN 01/25/2018 Results for this 5:16 PM CDT procedure are in the results section. TELEMETRY STRIPS-SCAN 01/24/2018 Results for this 10:32 AM DOUBLE CUT OFF SAW OPERATOR procedure are in the results section. from Last 3 Months Results * ECG-SCAN (04/07/2018 12:26 PM) Narrative Ordered by an unspecified provider. * DEVICE EVALUATION - ILR (03/05/2018 4:15 PM) Component Value Ref Range Generator Model # [id number] Generator Serial # [id number] Generator Implnat Date 01/03/16 Device Implanted By [facility] EP Device Followed By Other ILR Symptom Duration Four 7.5 min Episodes ILR Tachy Rate 162 ILR Tachy Duration 16 ILR Pause Duration 3 ILR Wilbert Rate 30 ILR Wilbert Duration 4 ILR AT Events Since Last n/a Interrogation ILR AT Lifetime Events as n/a of ILR AF Rate AF only ILR AF Duration episodes > 6 mins EP Device Followed by Dr. Price Name Device [place] Carelink Express Transmitter Compatible Known Diagnosed AFib Yes On Anticoagulation Yes Generator Body Straightener Medtronic ILR Symptom Lifetime 1 Events as of ILR Tachy Lifetime Events 107 as of ILR Pause Lifetime Events 12 as of ILR Wilbert Lifetime Events 34 as of ILR Percent Time in AT/AF 666 Lifetime of Events as of ILR Lifetime Events as of 03/05/18 Datetion Specimen Performing Laboratory OTHER OUTSIDE LAB Narrative In office LINQ interrogation.Pt is routinely followed by Dr. Price in [place], [place]. Pt is s/p AFib RFA on 01/21/18 Since 01/01/18: 4 Tachy Events all 01/20/18 1 AF event on 01/21/18 3 Wilbert, 3/8, 3/9, 3/17 and 4/7 lasting 8-10sec, these EGMs showed NSR 60s bpm with freq PVCs, some bigeminy with undersensed PVCs. Report to Dr. Coulter in clinic. * BOTOX (ONABOTULINUMTOXINA) (02/04/2018 1:00 PM) Specimen Performing Laboratory IN CLINIC Narrative Silverio Walker MD 02/04/2018 12:56 PM BOTOX INJECTION 5 units injected into the left TA muscle in 0.2 cc's under EMG guidance. Patient Response: The patient tolerated the procedure well. Comments: The patient's anterior neck was prepped with alcohol. Using a 27 gauge, Yvon-coated EMG needle under EMG guidance, the left TA muscle was identified and 5 units of Botox in 0.2 ml was injected. Botox Injected: 5 Units She had a short response with 3 units in the left TA. She did OK with 5 units on the right.We will inject the left TA with 5 units today. * ECG-SCAN (01/25/2018 5:16 PM) Narrative Ordered by an unspecified provider. * TELEMETRY STRIPS-SCAN (01/24/2018 10:32 AM) Narrative Ordered by an unspecified provider. * CBC (01/22/2018 4:30 AM) Only the most recent of 2 results within the time period is included. Component Value Ref Range White Blood Cells 8.5 4.5 - 11.0 K/UL RBC 3.65 (L) 4.0 - 5.0 M/UL Hemoglobin 10.6 (L) 12.0 - 15.0 GM/DL Hematocrit 31.9 (L) 36 - 45 % MCV 87.5 80 - 100 FL MCH 29.1 26 - 34 PG MCHC 33.3 32.0 - 36.0 G/DL RDW 16.2 (H) 11 - 15 % Platelet Count 231 150 - 400 K/UL MPV 8.1 7 - 11 FL Specimen Performing Laboratory [facility] [address] [place] [address] * BASIC METABOLIC PANEL (01/22/2018 4:30 AM) Only the most recent of 2 results within the time period is included. Component Value Ref Range Sodium 137 137 - 147 MMOL/L Potassium 3.7 3.5 - 5.1 MMOL/L Chloride 104 98 - 110 MMOL/L CO2 24 21 - 30 MMOL/L Anion Gap 9 3 - 12 Glucose 89 70 - 100 MG/DL Blood Urea Nitrogen 12 7 - 25 MG/DL Creatinine 0.76 0.4 - 1.00 MG/DL Calcium 9.1 8.5 - 10.6 MG/DL eGFR Non >60 >60 mL/min Comment: The eGFR is not validated for use in drug dosing adjustments.Continue to use estimated creatinine clearance per dosing reference text.Please contact the Clinical Pharmacist for questions. eGFR >60 >60 mL/min Comment: The eGFR is not validated for use in drug dosing adjustments.Continue to use estimated creatinine clearance per dosing reference text.Please contact the Clinical Pharmacist for questions. Specimen Performing Laboratory [facility] [address] [place] [address] * POC GLUCOSE (01/21/2018 5:37 PM) Component Value Ref Range Glucose, POC 154 (H) 70 - 100 MG/DL Specimen Performing Laboratory MA[facility] [address] [place] [address] * LIMITED ECHOCARDIOGRAM (01/21/2018 2:38 PM) Component Value Ref Range BSA 1.74 m2 Referring Provider Sung Dunn Iii Cardiology Ultrasound Siemens [id number] Machine LVIDD 4.7 3.9 - 5.3 cm IVS 1.2 0.6 - 0.9 cm PW 1.3 0.6 - 0.9 cm LVIDS 3.5 cm LA volume 66.2 22 - 52 mL Sinus 3.2 2.1 - 3.5 cm LA size 3.1 2.7 - 3.8 cm Right Ventricular Basal 2.9 2.5 - 4.1 cm Diameter Right Ventricular Mid 1.9 1.9 - 3.5 cm Diameter Right Ventricular Long 6.8 5.9 - 8.3 cm Diameter Right Atrial Area 13.1 <=18 cm2 Right Atrial Major 4.6 <=5.3 cm Dimension FS 25.53 28 - 44 % EF 43.40 % Left Atrium Index 38.05 10 - 32 ECHO EF 65 % Specimen Performing Laboratory OTHER OUTSIDE LAB Narrative This is a 2-D only study. Left Ventricle: Normal size. Mild concentric hypertrophy. Hyperdynamic left ventricular function. Normal valve structures No pericardial effusion. * POC ACTIVATED CLOTTING TIME (01/21/2018 1:29 PM) Component Value Ref Range Activated Clotting Time 246 s Specimen Performing Laboratory [facility] [address] [place] [address] * EP STUDY (01/21/2018 1:22 PM) Specimen Performing Laboratory OTHER OUTSIDE LAB Narrative Cardiac Electrophysiology Post-Procedure Note Attending: Vicente Coulter MD Preoperative diagnosis: PAFIB Postoperative diagnosis: same Procedure(s) Performed: Paroxysmal atrial fibrillation RF ablation Procedure Description: Assessed prior right-sided CTI AFL RF Ablation conduction time prolonged and activation time HIDA low along the lateral wall suggestive of still persistent CTIbidirectional conduction block. Double transseptal performed at 0 500.PVCs mostly isolated with minimal activity.There was some activity however along the anterior ridge of the left superior pulmonary vein, posterior inferior border of the right inferior pulmonary vein, posterior superior border of the left inferior pulmonary vein, the posteriorborder of the right superior extending to the roof and towards anterior wall. ATACH vs. Atypical AFL--> cycle length varied was in the 260-80 ms range. Mapping was performed.There was nothing to suggest a reentrant circuit on the left side.Earliest activation was along the right superior septum.RF ablation in this region did not change the tachycardia. Entrainment pacing was performed prior to RF ablation in that location with no in treatment.There is no entrainment from the proximal CS and activation and the CS was proximal to distal or concentric.Multiple other areas in both the RA and LA were paced including the right kandace area and areas around the roof and PVCs all which showed no evidence of entrainment.After ablating the area along the septum activation changed in that area became late.Mapping was repeated.Earliest activation seem to be in the right roof just outside of the right superior PV.RF in this area again changed activation becoming late.Catheter had already been advanced into the RA mapping was performed there nothing showed very early activation.In fact the RF applications on the left side were earliest when they were delivered.Additional mapping was again performed in the LA.The activation sequence seem to be shifting.There is no reentry. Ultimately attention was turned to the right side.Catheters were withdrawn to the right side.3D mapping was performed on the right side. Earliest activation again appeared on the septum.But the A. tach suddenly degenerated to AFIB.Within about 5 more minutes and then organized into an atrial tachycardia with a cycle length of 320 ms which had CS activation that was eccentric distal to proximal.Entrainment pacing was performed from the distal CS as well as the proximal CS.No evidence of entrainment was present.We try to overdrive pace terminate from the proximal CS, RA, and ultimately the distal CS.The distal CS ultimately successfully overdrive pace terminated the tachycardia. NOTE--was a significant amount of scar tissue and difficulty getting good contact with any electrograms along the posterior RA wall as well as the anterior RA wall. Unfortunately we were unable to identify the origin of the different atrial tachycardias. However the patient was in sinus rhythm.At that point and at the procedure. We will await and see if the patient has PV isolation as well as the additional RF applications . We will resume sotalol Anesthesia: General anesthesia Estimated blood loss: 20 mL Complications: None Specimens removed: None Recommendations: - Please refer to post-procedure note for full recommendations - Pain control as needed - Remove sheaths once ACT <250 - Anti-arrhythmic drug: Sotalol - Anticoagulation: with Eliquis - Resume Eliquis 4 hours after sheath removal if hemostasis present and no hematoma - Resume/Continue PPI at 40 mg twice daily for 6 weeks - Resume/Continue sucralfate at 1 gram twice daily for 4 weeks - No post-procedure antibiotics * POC ACTIVATED CLOTTING TIME (01/21/2018 12:35 PM) Only the most recent of 9 results within the time period is included. Component Value Ref Range Activated Clotting Time 368 s Specimen Performing Laboratory MA[facility] [address] [place] [address] * TRANSESOPHAGEAL ECHOCARDIOGRAM (01/21/2018 8:46 AM) Component Value Ref Range BSA 1.74 m2 Referring Provider Sung Dunn iii CV ECHO PV CRACKER OFF EP lab staff Cardiology Ultrasound Siemens [id number] Machine ECHO EF 55 % Specimen Performing Laboratory OTHER OUTSIDE LAB Narrative Left ventricular systolic function is within normal limits. LVEF 55% No left atrial appendage thrombus. No significant valvular abnormalities. No pericardial effusion. * MAGNESIUM (01/21/2018 6:40 AM) Component Value Ref Range Magnesium 1.9 1.6 - 2.6 mg/dL Specimen Performing Laboratory [facility] [address] [place] [address] * POC PT/INR (01/21/2018 6:27 AM) Component Value Ref Range INR POC 1.1 0.8 - 1.2 Specimen Performing Laboratory [facility] [address] [place] [address] * TYPE & CROSSMATCH (01/21/2018 6:25 AM) Component Value Ref Range Units Ordered 2 Crossmatch Expires 01/24/2018 Record Check FOUND ABO/RH(D) O POS Antibody Screen NEG Electronic Crossmatch YES Specimen Performing Laboratory [facility] [address] [place] [address] from Last 3 Months
--- OUTSIDE RECORDS SUMMARY | 2018-04-12 11:10 | XMS REPORT | Encounter Summary ---
Author Author [facility] Organization [facility] Address Unknown Phone Unavailable Care Team Providers Care Hvac Sales Representative Name Role Phone Silverio Walker MD Unavailable Sung Dunn MD PCP Reason for Referral * CTA Procedure Status Reason Specialty Diagnoses / Referred By Referred To Procedures Contact Contact No Auth Needed Cardiology Diagnoses Vicente Coulter, Sunny Rosa Atrial [address] fibrillation, [address] unspecified type [place], [place] (HCC) [place] [id number] [place], [place] Phone: [email or web address] [address] [address] CARDIAC Phone: STRUCTURE WO/W [phone] CONT * CTA Procedure Status Reason Specialty Diagnoses / Referred By Referred To Procedures Contact Contact New Request Cardiology Diagnoses Vicente Coulter, Sunny Rosa Atrial [address] fibrillation, [address] unspecified type [place], [place] (HCC) [place] [address] [address] [place], [place] Phone: [email or web address] [phone] [address] LMT[address] CHEST W Phone: CARDIAC [phone] Encounter Details Date Type Department Care Team Description 03/25/2018 Orders Only [facility] Marielena Gómez RN Atrial fibrillation, [address] unspecified type (HCC) [place] [address] (Primary Dx) [phone] Social History Tobacco Use Types Packs/Day Years Used Date Never Smoker Smokeless Tobacco: Never Used Alcohol Use Drinks/Week oz/Week Comments Yes 1 Glasses of 0.6 wine Sex Assigned at Date Recorded Not on file as of this encounter Plan of Treatment Date Type Specialty Care Team Description 03/25/2018 Procedure Pass Cardiology Name Priority Associated Diagnoses Order Schedule CT LMTD CHEST W CARDIAC Routine Atrial fibrillation, Expected: 2017 unspecified type (HCC) (Approximate), Expires: 03/25/2019 CT CARDIAC STRUCTURE WO/W CONT Routine Atrial fibrillation, Expected: unspecified type (HCC) (Approximate), Expires: 03/25/2019 as of this encounter Visit Diagnoses Diagnosis Atrial fibrillation, unspecified type (HCC) - Primary
--- OUTSIDE RECORDS SUMMARY | 2018-04-12 11:10 | XMS REPORT | Encounter Summary ---
Author Author [facility] Organization [facility] Address Unknown Phone Unavailable Care Team Providers Care Marine Engineering Teacher Name Role Phone Silverio Walker MD Unavailable Sung Dunn MD PCP Encounter Details Date Type Department Care Team Description 03/05/2018 Ancillary [facility] Cardiology Vicente Coulter MD Atrial fibrillation, Orders [address] unspecified type (HCC) [place] [address] [place] [address] [place] [address] [phone] Social History Tobacco Use Types Packs/Day Years Used Date Never Smoker Smokeless Tobacco: Never Used Alcohol Use Drinks/Week oz/Week Comments Yes 1 Glasses of 0.6 wine Sex Assigned at Date Recorded Not on file as of this encounter Plan of Treatment Date Type Specialty Care Team Description 03/25/2018 Procedure Pass Cardiology as of this encounter Results * DEVICE EVALUATION - ILR (03/05/2018 4:15 PM) Component Value Ref Range Generator Model # [id number] Generator Serial # [id number] Generator Implnat Date 01/03/16 Device Implanted By [facility] EP Device Followed By Other ILR Symptom [...] Device Followed by Dr. Price Name Device [place] Carelink Express Transmitter Compatible Known Diagnosed AFib Yes On Anticoagulation Yes Generator Pest Management Supervisor Medtronic ILR Symptom Lifetime 1 Events as [...] is routinely followed by Dr. Price in [place], [place]. Pt is s/p AFib RFA on 01/21/18 Since 01/01/18: 4 Tachy Events all 01/20/18 1 AF event on 01/21/18 3 Wilbert, 01/22, 01/23, 01/31 and 02/21 lasting 8-10sec, these EGMs showed NSR 60s bpm with freq PVCs, some bigeminy with undersensed PVCs. Report to Dr. Coulter in clinic. in this encounter Visit Diagnoses Diagnosis Atrial fibrillation, unspecified type (HCC)
--- OUTSIDE RECORDS SUMMARY | 2018-04-12 11:10 | XMS REPORT | Encounter Summary ---
Author Author [facility] Organization [facility] Address Unknown Phone Unavailable Care Team Providers Care Overhead Cleaner Maintainer Name Role Phone Silverio Walker MD Unavailable Sung Dunn MD PCP Reason for Visit * Reason Comments Procedure Botox Encounter Details Date Type Department Care Team Description 02/04/2018 Procedure visit [facility] Silverio Walker MD Dysphonia (Primary Dx); Physicians - ENT [address] Adductor spasmodic [address] [place] [address] dysphonia with tremor [address] [place] [address] OFFICE BLDG [phone] [place] [address] Social History Tobacco Use Types Packs/Day Years Used Date Never Smoker Smokeless Tobacco: Never Used Alcohol Use Drinks/Week oz/Week Comments Yes 1 Glasses of 0.6 wine Sex Assigned at Date Recorded Not on file as of this encounter Last Filed Vital Signs Vital Sign Reading Time Taken Blood Pressure 157/93 02/04/2018 12:46 PM CDT Pulse 62 02/04/2018 12:46 PM CDT Temperature - - Respiratory Rate - - Oxygen Saturation - - Inhaled Oxygen - - Concentration Weight 70.3 kg (155 lb) 02/04/2018 12:46 PM CDT Height 160 cm (5' 3") 02/04/2018 12:46 PM CDT Body Mass Index 27.46 02/04/2018 12:46 PM CDT in this encounter Instructions * Patient Instructions - Silverio Walker MD - 02/04/2018 1:00 PM CDT Monitor the changes in your voice. Note any side effects (swallowing difficulty or excessive breathy voice), when they start and how long they last. Also note improvement in the voice. Note when it starts and how long it lasts. This will be important for future injections. in this encounter Progress Notes * Daisy Dunn MA,CCC-EDUCATION ASSOCIATE - 02/04/2018 1:00 PM CDT I assisted the physician during this injection by running the EMG machine. in this encounter Procedure Notes * Silverio Walker MD - 02/04/2018 1:00 PM CDT Associated Order(s): BOTOX (ONABOTULINUMTOXINA) Pre-Procedure Diagnose(s): Dysphonia; Adductor spasmodic dysphonia with tremor Post-Procedure Diagnose(s): Dysphonia; Adductor spasmodic dysphonia with tremor BOTOX INJECTION 5 units injected into the left TA muscle in 0.2 cc's under EMG guidance. Patient Response: The patient tolerated the procedure well. Comments: The patient's anterior neck was prepped with alcohol. Using a 27 gauge , Yvon-coated EMG needle under EMG guidance, the left TA muscle was identified and 5 units of Botox in 0.2 ml was injected. Botox Injected: 5 Units She had a short response with 3 units in the left TA. She did OK with 5 units on the right. We will inject the left TA with 5 units today. in this encounter Plan of Treatment Date Type Specialty Care Team Description 03/25/2018 Procedure Pass Cardiology as of this encounter Procedures Procedure Name Priority Date/Time Associated Diagnosis Comments BOTOX Routine 02/04/2018 Dysphonia Results for this (ONABOTULINUMTOXINA) 1:00 PM CDT Adductor spasmodic procedure are in the dysphonia with tremor results section. in this encounter Results * BOTOX (ONABOTULINUMTOXINA) (02/04/2018 1:00 PM) Specimen [...] the left TA with 5 units today. in this encounter Visit Diagnoses Diagnosis Dysphonia - Primary Adductor spasmodic dysphonia with tremor Other diseases of larynx
--- OUTSIDE RECORDS SUMMARY | 2018-04-12 11:10 | XMS REPORT | Encounter Summary ---
Author Author [facility] Organization [facility] Address Unknown Phone Unavailable Care Team Providers Care Wireless Sales Associate Name Role Phone Silverio Walker MD Unavailable Sung Dunn MD PCP Reason for Visit * Reason Comments Other post ablation CCTA - needs to be at Encounter Details Date Type Department Care Team Description 03/30/2018 Telephone [facility] Cardiology Jaye Martínez RN Other (post ablation CCTA [address] - needs to be at ) [place] [address] Social History Tobacco Use Types Packs/Day Years Used Date Never Smoker Smokeless Tobacco: Never Used Alcohol Use Drinks/Week oz/Week Comments Yes 1 Glasses of 0.6 wine Sex Assigned at Date Recorded Not on file as of this encounter Miscellaneous Notes * Telephone Encounter - Alethea Rader RN - 04/09/2018 9:42 AM CDT reviewed with Dr Coulter who feels her cardiac CCTA must be done at Mary is in agreement to this plan. will schedule her f/u visit couple of weeks following the scan. she will talk to her daughter regarding the best location to travel so ([facility] [place], or office * Telephone Encounter - Jaye Martínez RN - 03/30/2018 1:47 PM CDT Pt lives 2[place]5 hours away and has trouble finding a ride to . Pt is seeing Dr Price in April as follow up from ablation and wants to see if he can order post ablation CCTA. Pt states she will come back up to to have CCTA if she needs to follow up with [facility] for anything but otherwise will hold off on scheduling CCTA with us for now. Pt denies any symptoms of SOA and states that she feels great. in this encounter Plan of Treatment Date Type Specialty Care Team Description 03/25/2018 Procedure Pass Cardiology as of this encounter Visit Diagnoses Not on filein this encounter
--- OUTSIDE RECORDS SUMMARY | 2018-04-12 11:10 | XMS REPORT | Encounter Summary ---
Author Author [facility] Organization [facility] Address Unknown Phone Unavailable Care Team Providers Care Manager Post Name Role Phone Silverio Walker MD Unavailable Sung Dunn MD PCP Reason for Visit * Reason Comments Follow-up Phone Call Encounter Details Date Type Department Care Team Description 03/06/2018 Telephone [facility] Cardiology Awa Jessica RN Follow- up Phone Call [address] [place] [address] Social History Tobacco Use Types Packs/Day Years Used Date Never Smoker Smokeless Tobacco: Never Used Alcohol Use Drinks/Week oz/Week Comments Yes 1 Glasses of 0.6 wine Sex Assigned at Date Recorded Not on file as of this encounter Miscellaneous Notes * Telephone Encounter - Awa Jessica RN - 03/06/2018 10:49 AM CDT Called patient back. She had the following question: Is there any way possible to see Dr. Price in [place] instead of [facility] in April? And if Dr. Price thinks she needs to see [facility] she will, otherwise possibly plan to see [facility] end of the summer. Will route to [facility] RN to review with him and follow up. * Telephone Encounter - Awa Jessica RN - 03/06/2018 10:48 AM CDT ----- Message from Daisy Osman sent at 03/06/2018 10:25 AM CDT ----- Regarding: [facility],Appointment follow up Patient saw [facility] yesterday and she would like to talk about the appointment. Call back is the home number in this encounter Plan of Treatment Date Type Specialty Care Team Description 03/25/2018 Procedure Pass Cardiology as of this encounter Visit Diagnoses Not on filein this encounter
--- OUTSIDE RECORDS SUMMARY | 2018-04-12 11:10 | XMS REPORT | Encounter Summary ---
Author Author [facility] Organization [facility] Address Unknown Phone Unavailable Care Team Providers Care Kick Boxer Name Role Phone Silverio Walker MD Unavailable Sung Dunn MD PCP Encounter Details Date Type Department Care Team Description 03/30/2018 Documentation [facility] Elina Grijalva, RN [address] [place] [address] Social History Tobacco Use Types Packs/Day Years Used Date Never Smoker Smokeless Tobacco: Never Used Alcohol Use Drinks/Week oz/Week Comments Yes 1 Glasses of 0.6 wine Sex Assigned at Date Recorded Not on file as of this encounter Progress Notes * Elina Grijalva RN - 03/30/2018 1:13 PM CDT LM for pt to call back to schedule post-ablation CT scan; left call back number. in this encounter Plan of Treatment Date Type Specialty Care Team Description 03/25/2018 Procedure Pass Cardiology as of this encounter Visit Diagnoses Not on filein this encounter
--- OUTSIDE RECORDS SUMMARY | 2018-04-12 11:10 | XMS REPORT | Encounter Summary ---
Author Author [facility] Organization [facility] Address Unknown Phone Unavailable Care Team Providers Care Mid Level Net Developer Name Role Phone Silverio Walker MD Unavailable Sung Dunn MD PCP Reason for Visit * Reason Comments Test/procedure Wants to schedule Cardiac CT scan Encounter Details Date Type Department Care Team Description 04/07/2018 Telephone [facility] Cardiology Marli Logan RN Test/ procedure (Wants to [address] [phone] scan) [address] [address] [place], [place] [address] Social History Tobacco Use Types Packs/Day Years Used Date Never Smoker Smokeless Tobacco: Never Used Alcohol Use Drinks/Week oz/Week Comments Yes 1 Glasses of 0.6 wine Sex Assigned at Date Recorded Not on file as of this encounter Miscellaneous Notes * Telephone Encounter - Marli Logan RN - 04/07/2018 10:30 AM CDT IB message to Scheduling CCTA pool * Telephone Encounter - Marli Logan RN - 04/07/2018 10:29 AM CDT ----- Message from Daisy Osman sent at 04/07/2018 8:10 AM CDT ----- Regarding: [facility]-Testing Patient calling to schedule "3D scan of my heart" for around May 06. Call back is [phone] in this encounter Plan of Treatment Date Type Specialty Care Team Description 03/25/2018 Procedure Pass Cardiology as of this encounter Visit Diagnoses Not on filein this encounter
--- OUTSIDE RECORDS SUMMARY | 2018-04-12 11:10 | XMS REPORT | Encounter Summary ---
Author Author [facility] Organization [facility] Address Unknown Phone Unavailable Care Team Providers Care Cnc Mechanic Name Role Phone Silverio Walker MD Unavailable Sung Dunn MD PCP Reason for Referral * Status Reason Specialty Diagnoses / Referred By Referred To Procedures Contact Contact New Request Diagnoses Vicente Coulter, Paroxysmal atrial [address] ([facility]) [address] [place], [place] rocedures [address] REQUEST FOR Phone: CARDIOLOGY [phone] APPOINTMENT * Status Reason Specialty Diagnoses / Referred By Referred To Procedures Contact Contact New Request Procedures Vicente Coulter, REQUEST FOR CARDIOLOGY [address] [place] [address] Reason for Visit * Reason Comments Cardiac Eval s/p ablation * Status Reason Specialty Diagnoses / Referred By Referred To Procedures Contact Contact New Request Procedures Vicente Coulter, REQUEST FOR CARDIOLOGY [address] [place] [address] Encounter Details Date Type Department Care Team Description 03/05/2018 Office Visit [facility] Vicente Coulter MD Cardiac Eval (s/p [address] [place] [address] ablation) [address] [place] [address] [place] [address] [phone] Social History Tobacco Use Types Packs/Day Years Used Date Never Smoker Smokeless Tobacco: Never Used Alcohol Use Drinks/Week oz/Week Comments Yes 1 Glasses of 0.6 wine Sex Assigned at Date Recorded Not on file as of this encounter Last Filed Vital Signs Vital Sign Reading Time Taken Blood Pressure 124/84 03/05/2018 1:56 PM CDT Pulse 60 03/05/2018 1:56 PM CDT Temperature - - Respiratory Rate - - Oxygen Saturation - - Inhaled Oxygen - - Concentration Weight 71.2 kg (157 lb) 03/05/2018 1:56 PM CDT Height 160 cm (5' 3") 03/05/2018 1:56 PM CDT Body Mass Index 27.81 03/05/2018 1:56 PM CDT in this encounter Progress Notes * Vicente Coulter MD - 03/05/2018 1:30 PM CDT Formatting of this note may be different from the original. Date of Service: 03/05/2018 Mary Roth is a 72 y.o. female. HPI I had the pleasure of seeing your patient Mary Roth in the [facility] as a part of the [facility] Cardiology [facility] office today for follow up regarding her Paroxysmal Atrial Fibrillation. She is typically followed and was referred by my friend and colleague Dr. Price , her primary natural resource technician, in [facility]. Ms. Roth is an exceptionally pleasant 72 y.o. Female. The past medical history and data below has been reviewed and updated by me with new events for today's visit. Her PMHx briefly includes:Paroxysmal AFIB S/P Ablation in [place] 02/2016 --> RE-DO RFA (01/21/18); Moderate LA Dilatation; wide Complex Tachycardia while on Flecainide; T Wave Inversion On Her Baseline Asymptomatic ECG; Normal LV Function; Nonobstructive CAD-by Cath by Dr. Price 2014; [employer] Reveal LinQ Implantable Looping Monitor device implantation 01/03/[address] Price; some orthostatic hypotension with reported syncopeno recurrences; hypertension ; Anticoagulation; Hyperlipidemiaintolerant of statins with elevated LFTs--> Maintained on Fenofibrate; Spasmodic Dysphonia; Low back pain with interventricular disc disease; nonobstructive carotid artery stenosis by duplex 05/2017Dr. Price. Shehas a [id number] score of 3:Female, HTN, and age > 65 yo. NOTE--she apparently has had some elevated LFTs when on amiodarone in the past. ~ 2012: Per Pt she thinks her AFIB dates back to ~ 2012. -- 2014: Wide Complex Tachycardia while on Flecainide-->Flecainide Discontinued and Cardiac Catheterization pursued.-->No recurrent wide- complex tachycardia. --10/30/15: Cardiac catheterization with Dr. Price with nonobstructive disease -- 12/2015: [employer] Reveal LinQ Implantable Looping Monitor device Implantation by Dr. Price -- 02/2016: AFIB Ablation and reported right-sided CTI ablation at OSH-she Apparently underwent AFIB Ablation by Dr. Kelly in [place], [place] -- Post AFIB Ablation--unclear what antiarrhythmic drug therapy she was on it for how long. ALTHOUGH,except for one brief episode of AFIB last year (2015) ,she apparently did not have significant recurrent atrial fibrillation until around 09/2017 -- 09/2017: Recurrent AFIB-->09/23/17 Cardioversion-->Dr. Price initiated her on Flecainide--wide-complex tachycardia noted while on Flecainide.> Therefore Flecainide wasdiscontinued. -- : Recurrent AFIB-->initiated on Multaq -- 11/03/17: Cardioversion on Multaq for recurrent AFIB -- 11/20/2017: OV with Dr. Price-->Pt back in coarse AFIB -->patient apparently had stopped her Multaq at some point prior to her recurrent AFIB presentation. At that time Dr. Price reinitiated Multaq -- 11/21/17: Cardioversion back on Multaq for a day and referred her for EP consultation to discuss further options regarding her AFIB management. Toprol- XL was increased to 50 mg BID -- 11/2017: Sotalol 80 mg twice daily initiated by Dr. Price after had continued recurrent AFIB despite Multaq therapy. -- 12/09/17: Cardioversion after recurrent AFIB on sotalol. Sotalol dose increased to 120 mg in the morning and 80 mg at night for a QTC of 476 ms She has been on long-standing Toprol-XL therapy as well as Diltiazem. She has been on anticoagulation. -- 11/24/17: Initial EP Consultation: After lengthy discussion regarding an Ablation, she would like to think about pursuing a procedure or alternative plan and will call our office with her decision. I asked her to speak with Dr. Price regarding her ECG -- 11/27/17: Pt called and wished to pursue an ablation on 12/10 -- 12/02/17: Pt called an cancelled Ablation due to transportation issues -- 12/11/17: Telephone: Pt was hospitalized at [facility] with AFIB with RVR. Nurse from [facility] called to schedule CTA for ablation. Pt underwent unsuccessful CVRT and Sotalol was increased to 120 mg BID. Multaq and Metoprolol were reportedly DC'ed during hospitalization. Ablation was scheduled for 01/21 -- 01/01/18: OV (Dr. Coulter): Pt wished to pursue re-do AFIB Ablation -- 01/21/18: ROSIO: LVEF 55%, no IAN thrombus, no significant valvular abnormalities or pericardial effusion noted -- 01/21/18: Limited Echo: normal LV sie with mild concentric LVH -- 01/21/18: RE-DO AFIB RFA by [facility] --> resumed Sotalol post procedure. Patient was in an atrial tachycardia/atypical AFL when presenting to the procedure. The cycle length was 360-80 ms. There were small areas of recurrent PV activity in each vein. But these were very small. Extensive mapping was performed. It does not appear to be a left-sided circuit. There is no entrainment on the proximal or distal CS. Some early activation appeared to be along the left septum. RF in that area resulted in changing activation but no termination of the arrhythmia. Mapping on the right side again suggested septal activation early but unfortunately the atrial tachycardia degenerated to AFIB. Then organized back to an atrial tachycardia at 320 ms. Activation was completely different in the CS and otherwise with this atrial tachycardia. Pacing from the distal and proximal coronary sinus did not drain arrhythmia. Extensive scar tissue is present. Prior CTI ablation done in years past was still intact. She STATES she is doing well. She has recovered well post-ablation. She has not had any recurrent events since her re-do AFIB RFA. She is tolerating therapy with Sotalol well. She checks her blood pressure at home twice per day with DBPs averaging in the 75 mmHg range. Her blood pressure is under reasonable control in the office today. He has been having difficulty with allergies. She saw an senior court office assistant. Given her current anticoagulation and sotalol therapy he did not want to do "allergy testing.", She inquired regarding whether she was able to take antihistamines such as Benadryl. She denies any bleeding issues-blood in the urine, blood in the stool, tolerating anticoagulation without obvious issue. She denies any chest discomfort, shortness of breath, palpitations, lightheadedness, near syncope or syncope, PND or orthopnea. FHx, SHx and ROS documented and I have reviewed, with some pertinent features to include: No FHx of premature CAD. She is a Non-Smoker. Most pertinent ROS is included/discussed throughout the note, e.g. HPI and A/P. ASSESSMENT AND PLAN: -- Paroxysmal AFIB S/P Ablation (02/2016) with RE-DO AFIB RFA (01/21/18) -- T wave inversionon baseline asymptomatic ECG -- Normal LV Function -- Nonobstructive CAD -- [employer] Reveal LinQ Implantable Looping Monitor device implantation Dr. Price -- CAD -- Prior Wide-Complex Tachycardia on Flecainide --> No recurrences -- Hypertension -- Anticoagulation -- Hyperlipidemia -- Spasmodic Dysphonia -- Low back pain with interventricular disc disease Overall she is doing exceptionally well since her redo ablation last month. She has had no recurrent symptoms. Her groin site is healed well. She has no specific symptoms outside of her allergy type symptoms. Denies any odynophagia , chest discomfort, shortness of breath, palpitations, etc. We discussed her allergies. I am very comfortable with her taking an antihistamine without an issue. However I have asked her to avoid decongestants for now. Her Medtronic LinQ Implantable Monitor is intact. Interrogation showed no atrial arrhythmia since her ablation. It did have some under sensing of PVCs. Therefore it identified what what it thought was bradycardia but in fact it was not. Her blood pressure appears to be under good control as well. PLAN: -- If she continues to do well after 3 months we will revisit regarding potentially stopping her Sotalol -- I asked her to call our office with any new or recurrent symptoms Ms. Roth was educated regarding plan of [...] I have scheduled her follow-up with me in 2 month(s). Vitals: 03/05/18 1356 BP: 124/84 Pulse: 60 Weight: 71.2 kg (157 lb) Height: 1.6 m (5' 3") Body mass index is 27.81 kg/m. 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 HENT: Positive for congestion and hoarse voice. Eyes: Negative. Cardiovascular: Negative. Respiratory: Positive for cough. Endocrine: Negative. Hematologic/Lymphatic: Bruises/bleeds easily. Skin: Negative. Musculoskeletal: Positive for arthritis. Gastrointestinal: Negative. Genitourinary: Negative. Neurological: Negative. Psychiatric/Behavioral: Negative. Allergic/Immunologic: Negative. All other systems reviewed and are negative. Physical Exam Constitutional: She is in no [...] jugular venous pressure, carotids are 2+/4+ equal bilaterally. Regular rhythm, S1, S2. 1/6 systolic murmur noted at the LLSB. No heaves, thrills or rubs. Musc/Skeletal-Extremities: Without significant peripheral edema. With what appears to be full ROM. LINQ Site: Is in her left chest region and well-healed. Neuro: Patient is alert and oriented to person, place, and time. Psych: Patient does not appear anxious, she appears appropriate, with normal non-pressured speech and what appears to be appropriate judgement Cardiovascular Studies ECG today demonstrates NSR at 60 bpm with 2 isolated PVCs. Mild nonspecific T- wave changes especially anteriorly. [employer] Reveal LinQ Implantable Looping Monitor Full device check performed with reprogramming which I have extensively reviewed. Changes, if done, as discussed below and is detailed in other dictation/note. No atrial arrhythmias auto or symptom activated. For episodes of bradycardia were identified but they are all under sensing and PVCs. Problems Addressed Today Encounter Diagnoses Name Primary? Paroxysmal atrial fibrillation (HCC) Yes Current Medications (including today's revisions) alprazolam (XANAX) 1 mg PO tablet Take 1 mg by mouth twice daily. 1 BY MOUTH TWICE A DAY apixaban (ELIQUIS) 5 mg tab tablet Take 5 mg by mouth twice daily. Biotin 1 mg tab Take 1 tablet by mouth daily. busPIRone (BUSPAR) 10 mg tablet Take 1 tablet by mouth twice daily. enalapril (VASOTEC) 2.5 mg tablet Take 2.5 mg by mouth daily. fish oil- omega 3-DHA/EPA 300/1,000 mg capsule Take 1 capsule by mouth twice daily with meals. magnesium oxide (MAG-OX) 400 mg tablet Take 400 mg by mouth daily. OMEPRAZOLE (PRILOSEC PO) Take by mouth. pravastatin (PRAVACHOL) 40 mg tablet Take 40 mg by mouth daily. sertraline (ZOLOFT) 50 mg tablet Take 50 mg by mouth daily. sotalol (BETAPACE) 80 mg tablet 1.5 tablet in morning, 1 tablet in evening vitamin E 400 unit capsule Take 400 Units by mouth daily. Documentation recorded by Sheng Frazier, acting as scribe for Vicente Coulter M.D. in this encounter Plan of Treatment Date Type Specialty Care Team Description 03/25/2018 Procedure Pass Cardiology Name Priority Associated Diagnoses Order Schedule ECG 12-LEAD Routine Paroxysmal atrial Ordered: 03/05/2018 fibrillation (HCC) as of this encounter Procedures Procedure Name Priority Date/Time Associated Diagnosis Comments ECG-SCAN 04/07/2018 Results for this 12:26 PM CDT procedure are in the results section. in this encounter Results * ECG-SCAN (04/07/2018 12:26 PM) Narrative Ordered by an unspecified provider. in this encounter Visit Diagnoses Diagnosis Paroxysmal atrial fibrillation (HCC) - Primary Atrial fibrillation
--- OUTSIDE RECORDS SUMMARY | 2018-04-12 11:10 | XMS REPORT | Encounter Summary ---
Author Author [facility] Organization [facility] Address Unknown Phone Unavailable Care Team Providers Care Police Justice Name Role Phone Silverio Walker MD Unavailable Sung Dunn MD PCP Encounter Details Date Type Department Care Team Description 04/07/2018 Orders Only [facility] Gloria Verma RN Atrial fibrillation, [address] [place] unspecified type (HCC) [place] [address] (Primary Dx) [phone] Social History Tobacco Use Types Packs/Day Years [...] BASIC METABOLIC PANEL Routine Atrial fibrillation, Expected: 04/07/2018, unspecified type (HCC) Expires: 04/07/2019 as of this encounter Visit Diagnoses Diagnosis Atrial fibrillation, unspecified type (HCC) - Primary
--- OUTSIDE RECORDS SUMMARY | 2018-04-12 11:10 | XMS REPORT | Encounter Summary ---
Author Author [facility] Organization [facility] Address Unknown Phone Unavailable Care Team Providers Care Graphic Pre Press Trades Worker Name Role Phone Silverio Walker MD Unavailable Sung Dunn MD PCP Encounter Details Date Type Department Care Team Description 03/11/2018 Telephone [facility] Alethea Rader, DIANE [address] [place] [address] Social History Tobacco Use Types Packs/Day Years Used Date Never Smoker Smokeless Tobacco: Never Used Alcohol Use Drinks/Week oz/Week Comments Yes 1 Glasses of 0.6 wine Sex Assigned at Date Recorded Not on file as of this encounter Miscellaneous Notes * Telephone Encounter - Alethea Rader RN - 03/11/2018 11:42 AM CDT Formatting of this note may be different from the original. she will f/u with Dr Santos for now due to transportation. will have Dr Santos call if further questions or concerns Telephone 03/06/2018 [facility] Awa Jessica RN Follow-up Phone Call Reason for call Conversation: Follow-up Phone Call (Newest Message First) Awa Jessica, DIANE to Me 03/06/18 10:52 AM Please see my note re: patient wants to follow up with Dr. Price in April if MPE okay with that, possibly push OV with MPE out a couple months. Awa Jessica, DIANE 03/06/18 10:49 AM Note Called patient back. She had the following question: Is there any way possible to see Dr. Price in [place] instead of [place] in April? And if Dr. Price thinks she needs to see [facility]PE she will, otherwise possibly plan to see [facility]PE end of the summer. Will route to [facility]PE RN to review with him and follow up. Awa Jessica RN 03/06/18 10:48 AM Note ----- Message from Daisy Osman sent at 03/06/2018 10:25 AM CDT ----- Regarding: MPE,Appointment follow up Patient saw MPE yesterday and she would like to talk about the appointment. Call back is the home number * Telephone Encounter - Alethea Rader RN - 03/11/2018 11:41 AM CDT ----- Message from Yesy Tovar LPN sent at 03/11/2018 9:36 AM CDT ----- Regarding: MPE- appt question VM from patient on triage line. See note in chart on 03/06/18. Call back at home. in this encounter Plan of Treatment Date Type Specialty Care Team Description 03/25/2018 Procedure Pass Cardiology as of this encounter Visit Diagnoses Not on filein this encounter
--- OUTSIDE RECORDS SUMMARY | 2018-04-12 11:10 | XMS REPORT | Encounter Summary ---
Author Author [facility] Organization [facility] Address Unknown Phone Unavailable Care Team Providers Care Plant Changer Name Role Phone Silverio Walker MD Unavailable Sung Dunn MD PCP Encounter Details Date Type Department Care Team Description 03/25/2018 Procedure Pass [facility] [address] [place] [address] Social History Tobacco Use Types [...]
--- OUTSIDE RECORDS SUMMARY | 2018-04-12 11:10 | XMS REPORT | Encounter Summary ---
Author Author [facility] Organization [facility] Address Unknown Phone Unavailable Care Team Providers Care General Foreman Name Role Phone Silverio Walker MD Unavailable Sung Dunn MD PCP Reason for Visit * Reason Comments Other botox question Encounter Details Date Type Department Care Team Description 01/28/2018 Telephone [facility] Silverio Walker MD Other (botox question) Physicians - ENT [address] FLOOR POD [address] [place] [address] OFFICE BLDG [phone] [place] [address] Social History Tobacco Use Types Packs/Day Years Used Date Never Smoker Smokeless Tobacco: Never Used Alcohol Use Drinks/Week oz/Week Comments Yes 1 Glasses of 0.6 wine Sex Assigned at Date Recorded Not on file as of this encounter Miscellaneous Notes * Telephone Encounter - Brielle Raya RN - 01/28/2018 8:40 AM CDT Patient called at the request of her management tech Dr. Oliva who performed an ablation on her and prescribed Eliquis. Is it okay for her to continue her botox injections? Per Dr. Walker, because she is having Botox TA injections only, then she may continue to have the injections. Patient voiced understanding. Verified next injection on February 04 at 1:00pm at the [facility]. in this encounter Plan of Treatment Date Type Specialty Care Team Description 03/25/2018 Procedure Pass Cardiology as of this encounter Visit Diagnoses Not on filein this encounter
--- OUTSIDE RECORDS SUMMARY | 2018-04-12 11:10 | XMS REPORT | Encounter Summary ---
Author Author [facility] Organization [facility] Address Unknown Phone Unavailable Care Team Providers Care Fine Unhairer Name Role Phone Silverio Walker MD Unavailable Sung Dunn MD PCP Reason for Visit * Reason Comments Other Post ablation cta needed in April Encounter Details Date Type Department Care Team Description 03/25/2018 Telephone [facility] Cardiology Marielena Gómez RN Other ( Post ablation cta [address] needed in April) [place], [place] [id number] Social History Tobacco Use Types Packs/Day Years Used Date Never Smoker Smokeless Tobacco: Never Used Alcohol Use Drinks/Week oz/Week Comments Yes 1 Glasses of 0.6 wine Sex Assigned at Date Recorded Not on file as of this encounter Miscellaneous Notes * Telephone Encounter - Marielena Gómez RN - 03/25/2018 2:17 PM CDT ----- Message from Mervat Haskins RN sent at 03/25/2018 9:31 AM CDT ----- Regarding: FW: 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
--- OUTSIDE RECORDS SUMMARY | 2018-04-12 11:10 | XMS REPORT | Encounter Summary ---
Author Author [facility] Organization [facility] Address Unknown Phone Unavailable Care Team Providers Care Curriculum Assistant Name Role Phone Silverio Walker MD Unavailable Sung Dunn MD PCP Reason for Visit * Reason Comments Other CCTA requested, will call pt to schedule Encounter Details Date Type Department Care Team Description 04/07/2018 Telephone [facility] Cardiology Jaye Martínez RN Other (CCTA requested, [address] will call pt to schedule) [place], [place] [id number] Social History Tobacco Use Types Packs/Day Years Used Date Never Smoker Smokeless Tobacco: Never Used Alcohol Use Drinks/Week oz/Week Comments Yes 1 Glasses of 0.6 wine Sex Assigned at Date Recorded Not on file as of this encounter Miscellaneous Notes * Telephone Encounter - Jaye Martínez RN - 04/07/2018 11:51 AM CDT ----- Message from Marli Logan RN sent at 04/07/2018 9:03 AM CDT ----- Regarding: FW: MPE-Testing she's wanting to schedule CCTA. ----- Message ----- From: Daisy Osman Sent: 04/07/2018 8:10 AM To: Mac Nurse Ep Subject: MPE-Testing Patient calling to schedule "3D scan of my heart" for around May 06. Call back is [phone] in this encounter Plan of Treatment Date Type Specialty Care Team Description 03/25/2018 Procedure Pass Cardiology as of this encounter Visit Diagnoses Not on filein this encounter
--- OUTSIDE RECORDS SUMMARY | 2018-04-12 11:10 | XMS REPORT | Encounter Summary ---
Author Author [facility] Organization [facility] Address Unknown Phone Unavailable Care Team Providers Care Admin Prog Coord Name Role Phone Silverio Walker MD Unavailable Sung Dunn MD PCP Encounter Details Date Type Department Care Team Description 03/05/2018 [facility] Cardiology Vicente Coulter MD Encounter [address] [place] [address] [address] [place] [address] [phone] Social History Tobacco Use Types Packs/Day Years Used Date Never Smoker Smokeless Tobacco: Never Used Alcohol Use Drinks/Week oz/Week Comments Yes 1 Glasses of 0.6 wine Sex Assigned at Date Recorded Not on file as of this encounter Medications at Time of Discharge Medication Sig. Disp. Refills Start Date End Date alprazolam (XANAX) 1 mg Take 1 mg by mouth twice PO tablet daily. 1 BY MOUTH TWICE A DAY apixaban (ELIQUIS) 5 mg Take 5 mg by mouth twice tab tablet daily. Biotin 1 mg tab Take 1 tablet by mouth daily. busPIRone (BUSPAR) 10 mg Take 1 tablet by mouth 12/29/2017 tablet twice daily. enalapril (VASOTEC) 2.5 Take 2.5 mg by mouth mg tablet daily. fish oil- omega 3-DHA/EPA Take 1 capsule by mouth 300/1,000 mg capsule twice daily with meals. magnesium oxide (MAG-OX) Take 400 mg by mouth 400 mg tablet daily. OMEPRAZOLE (PRILOSEC PO) Take by mouth. pravastatin (PRAVACHOL) Take 40 mg by mouth 40 mg tablet daily. sertraline (ZOLOFT) 50 mg Take 50 mg by mouth tablet daily. sotalol (BETAPACE) 80 mg 1.5 tablet in morning, 1 270 tablet 3 2017 tabletIndications: tablet in evening Paroxysmal atrial fibrillation (HCC) vitamin E 400 unit Take 400 Units by mouth capsule daily. as of this encounter Plan of Treatment Date Type Specialty Care Team Description 03/25/2018 Procedure Pass Cardiology as of this encounter Results * DEVICE EVALUATION - ILR (03/05/2018 4:15 PM) Component Value Ref Range Generator Model # [id number] Generator Serial # [id number] Generator Implnat Date 01/03/16 Device Implanted By [facility] EP Device Followed By Other [...] Device Followed by Dr. Price Name Device [place] Carelink Express Transmitter Compatible Known Diagnosed AFib Yes On Anticoagulation Yes Generator Computer Compositor Medtronic ILR Symptom Lifetime 1 Events as [...] is routinely followed by Dr. Price in [place], [place]. Pt is s/p AFib RFA on [...]
--- OUTSIDE RECORDS SUMMARY | 2018-04-12 11:11 | XMS REPORT | Encounter Summary ---
Author Author [facility] Organization [facility] Address Unknown Phone Unavailable Care Team Providers Care Animation Artist Name Role Phone Silverio Walker MD Unavailable Sung Dunn MD PCP Encounter Details Date Type Department Care Team Description 01/22/2018 Pharmacy Visit [facility] [address] [place] [address] Social History Tobacco Use Types Packs/Day Years [...]
--- OUTSIDE RECORDS SUMMARY | 2018-04-12 11:11 | XMS REPORT | Encounter Summary ---
Author Author [facility] Organization [facility] Address Unknown Phone Unavailable Care Team Providers Care College [employer] Registrar Name Role Phone Silverio Walker MD Unavailable Sung Dunn MD PCP Encounter Details Date Type Department Care Team Description 01/22/2018 Pharmacy Visit [facility] [address] [place] [id number] Social History Tobacco Use Types Packs/Day Years [...]
--- OUTSIDE RECORDS SUMMARY | 2018-04-12 11:11 | XMS REPORT | Encounter Summary ---
Author Author [facility] Organization [facility] Address Unknown Phone Unavailable Care Team Providers Care Manager Entry Name Role Phone Silverio Walker MD Unavailable Sung Dunn MD PCP Encounter Details Date Type Department Care Team Description 01/21/2018 Procedure Pass Card[facility] Catheterization [facility] [address] [place] [address] Social History Tobacco Use Types Packs/Day Years [...]
--- OUTSIDE RECORDS SUMMARY | 2018-04-12 11:11 | XMS REPORT | Encounter Summary ---
Author Author [facility] Organization [facility] Address Unknown Phone Unavailable Care Team Providers Care Homicide Squad Commanding Officer Name Role Phone Silverio Walker MD Unavailable Sung Dunn MD PCP Reason for Visit * Reason Comments Other Encounter Details Date Type Department Care Team Description 01/27/2018 Telephone [facility] Silverio Walker MD Other Physicians - ENT [address] FLO[address] [place] [address] OFFICE BLDG [phone] [place] [address] Social History Tobacco Use Types Packs/Day Years Used Date Never Smoker Smokeless Tobacco: Never Used Alcohol Use Drinks/Week oz/Week Comments Yes 1 Glasses of 0.6 wine Sex Assigned at Date Recorded Not on file as of this encounter Miscellaneous Notes * Telephone Encounter - Brielle Raya RN - 01/27/2018 12:53 PM CDT Returned patient call, she called me saying she had questions. Returned patient call x 2; left messages that I have called her back. Let patient know I would be happy to answer her questions or she can ask them at her upcoming appointment next week with Dr. Walker on February 04 at 1pm. in this encounter Plan of Treatment Date Type Specialty Care Team Description 03/25/2018 Procedure Pass Cardiology as of this encounter Visit Diagnoses Not on filein this encounter
--- OUTSIDE RECORDS SUMMARY | 2018-04-12 11:11 | XMS REPORT | Encounter Summary ---
Author Author [facility] Organization [facility] Address Unknown Phone Unavailable Care Team Providers Care Electrician Manager Name Role Phone Silverio Walker MD Unavailable Sung Dunn MD PCP Reason for Visit * Auth/Cert Status Reason Specialty Diagnoses / Referred By Referred To Procedures Contact Contact Diagnoses Atrial Fibrillation P rocedures NY EPHYS EVL TRNSPTL TX ATRIAL FIB ISOLAT PULM VEIN [place] COMPRE ELECTROPHYSIOL XM W/LEFT ATRIAL PACNG/REC [place] PROGRAMMED STIMJ & PACG AFTER IV DRUG NFS [place] INTRACARDIAC ELECTROPHYSIOLOG IC 3D MAPPING INTRACARDIAC CATHETER ABLATION WITH COMPREHENSIVE ELECTROPHYSIOLOG IC EVALUATION - ATRIAL FIBRILLATION, TRANSEPTAL (REDO) COMPREHENSIVE ELECTROPHYSIOLOG IC EVALUATION WITH CORONARY SINUS/ LEFT ATRIUM INTRAVENOUS DRUG INFUSION FOR STIMULATION AND PACING INTRACARDIAC ELECTROPHYSIOLOG IC 3-DIMENSIONAL MAPPING Encounter Details Date Type Department Care Team Description 01/21/2018 Hospital Cardiac Catheterization Vicente Coulter MD Atrial fibrillation (HCC) - Encounter Laboratory [address] 01/22/2018 [address] [facility] [address] [place] [address] [place] [address] [phone] Social History Tobacco Use Types Packs/Day Years Used Date Never Smoker Smokeless Tobacco: Never Used Alcohol Use Drinks/Week oz/Week Comments Yes 1 Glasses of 0.6 wine Sex Assigned at Date Recorded Not on file as of this encounter Last Filed Vital Signs Vital Sign Reading Time Taken Blood Pressure 134/84 01/22/2018 12:06 AM RECORD PRESS TENDER Pulse 69 01/22/2018 12:06 AM RECORD PRESS TENDER Temperature 36.9 C (98.5 F) 01/22/2018 5:00 AM RECORD PRESS TENDER Respiratory Rate - - Oxygen Saturation 97% 01/21/2018 11:00 PM RECORD PRESS TENDER Inhaled Oxygen - - Concentration Weight 68.8 kg (151 lb 10.8 oz) 01/21/2018 6:21 AM RECORD PRESS TENDER Height 160 cm (5' 3") 01/21/2018 6:21 AM RECORD PRESS TENDER Body Mass Index 26.87 01/21/2018 6:21 AM RECORD PRESS TENDER in this encounter Discharge Summaries * Carmen Thomas PA-C - 01/20/2018 1:52 PM RECORD PRESS TENDER Formatting of this note may be different from the original. Physician Discharge Summary Name: Mary Blood Date Of : 1945 Age: 72 years Admit date: 01/21/2018 Discharge date: 01/22/18 Attending Physician: Dr Bernardo Coulter Service: Cardiology-EP Physician Summary completed by: Carmen Thomas PA-C Reason for hospitalization: Afib ablation Significant PMH: Past Medical History: Diagnosis Date Anxiety Arrhythmia A Fib Arthritis back Depression Gastrointestinal disorder GERD Heart disease nonobstuctive CAD Hypercholesterolemia Hypertension Spasmodic dysphonia Allergies: Penicillin g; Sulfa (sulfonamide antibiotics); Tetracycline; and Flecainide Admission Lab/Radiology studies notable for: Hematology: Lab Results Component Value Date HGB 10.6 01/22/2018 HCT 31.9 01/22/2018 PLTCT 231 01/22/2018 WBC 8.5 01/22/2018 MCV 87.5 01/22/2018 MCHC 33.3 01/22/2018 MPV 8.1 01/22/2018 RDW 16.2 01/22/2018 , General Chemistry: Lab Results Component Value Date NA 137 01/22/2018 K 3.7 01/22/2018 CL 104 01/22/2018 GAP 9 01/22/2018 BUN 12 01/22/2018 CR 0.76 01/22/2018 GLU 89 01/22/2018 CA 9.1 01/22/2018 MG 1.9 01/21/2018 , Cardiac markers: No results found for: TNI, CKMB, MYOGLB, Mg and PO4: Lab Results Component Value Date MG 1.9 01/21/2018 and Endocrine: No results found for: BERNY, FREET4, TSH Brief Hospital Course: Ms. Mary blood is a 72 yr old with follows with Dr. Price ([employer] in [place], [place]) with PAF s/p ablation in February 2016, non obstructive CAD, hypertension , HDL and ILR placement in 2014. She was seen as a referral in the EP clinic for recurrent atrial fibrillation. She had a recurrent episode in 2016 with successful cardioversion restoring to SR. She was placed on Flecainide but developed WCT and was discontinued. She was then placed on Multaq and cardioverted only to revert back to atrial fibrillation. In 2017 she was hospitalized at [facility] with Afib with RVR, she underwent unsuccessful DCCV. Her Metoprolol BID was discontinued with increase in Sotalol 120 mg q am, 80 mg in evening. It was decided to proceed with re- do ablation for afib management. She presents for ablation as outlined below. Her pre ablation ROSIO was negative for IAN thrombus, Normal LV function with EF 55%. Post procedure her AAD was resumed along with her Eliquis. She was continued on her PPI BID x 6 weeks and Carafate 1 GM BID x 4 weeks prophylaxis. She was monitored overnight with stable groin sites, vital signs and telemetry. A limited echo post procedure was obtained to rule out effusion this demonstrated normal LV function, NO pericardial effusion Upon discharge the patient and family were given post procedure instructions/ restrictions as well as written instructions ( see Discharge instructions). She will follow up with Dr Coulter in 1 month post ablation as outlined below. Follow up with Primary cardiology with Dr. Price in 8 weeks for continued cardiac care. Condition at Discharge: Stable Hospital Problems Active Problems * (Principal)Atrial fibrillation (HCC) Hypercholesterolemia Hypertension Surgical Procedures: None Significant Diagnostic Studies and Procedures: 01/21/18: ROSIO ( pre ablation) Left ventricular systolic function is within normal limits. LVEF 55% No left atrial appendage thrombus. No significant valvular abnormalities. No pericardial effusion. 01/21/18: EPS: Assessed prior right-sided CTI AFL RF Ablationconduction time prolonged and activation time HIDA low along the lateral wall suggestive of still persistent CTI bidirectional conduction block. Double transseptal performed at 0 500. PVCs mostly isolated with minimal activity. There was some activity however along the anterior ridge of the left superior pulmonary vein, posterior inferior border of the right inferior pulmonary vein, posterior superior border of the left inferior pulmonary vein, the posterior border of the right superior extending to the roof and towards anterior wall. ATACH vs. Atypical AFL--> cycle length varied was in the 260-80 ms range. Mapping was performed. There was nothing to suggest a reentrant circuit on the left side. Earliest activation was along the right superior septum. RF ablation in this region did not change the tachycardia. Entrainment pacing was performed prior to RF ablation in that location with no in treatment. There is no entrainment from the proximal CS and activation and the CS was proximal to distal or concentric. Multiple other areas in both the RA and LA were paced including the right kandace area and areas around the roof and PVCs all which showed no evidence of entrainment. After ablating the area along the septum activation changed in that area became late. Mapping was repeated. Earliest activation seem to be in the right roof just outside of the right superior PV. RF in this area again changed activation becoming late. Catheter had already been advanced into the RA mapping was performed there nothing showed very early activation. In fact the RF applications on the left side were earliest when they were delivered. Additional mapping was again performed in the LA. The activation sequence seem to be shifting. There is no reentry. Ultimately attention was turned to the right side. Catheters were withdrawn to the right side. 3D mapping was performed on the right side. Earliest activation again appeared on the septum. But the A. tach suddenly degenerated to AFIB. Within about 5 more minutes and then organized into an atrial tachycardia with a cycle length of 320 ms which had CS activation that was eccentric distal to proximal. Entrainment pacing was performed from the distal CS as well as the proximal CS. No evidence of entrainment was present. We try to overdrive pace terminate from the proximal CS, RA, and ultimately the distal CS. The distal CS ultimately successfully overdrive pace terminated the tachycardia. NOTE--was a significant amount of scar tissue and difficulty getting good contact with any electrograms along the posterior RA wall as well as the anterior RA wall. Consults: Anesthesiology Patient Disposition: Home Patient instructions/medications: Procedure Specific Activity *Resume your normal activity in 3 days *You may drive after 2 days. *You may shower after discharge. *NO tub baths, hot tubs, or swimming for 1 week. *NO lifting greater than 10 pounds for 1 week. *NO sexual activity or strenuous activity for 1 week. Report These Signs and Symptoms Please contact your doctor if you have any of the following symptoms: Chest pain , shortness of breath, lightheadedness, dizziness, near fainting, palpitations, abd pain, back pain, or bleeding. Questions About Your Stay For questions or concerns regarding your hospital stay: - DURING BUSINESS HOURS (8:00 AM - 4:30 PM): Call [phone] and asked to be transferred to your discharge attending physician. - AFTER BUSINESS HOURS (4:30 PM - 8:00 AM, on weekends, or holidays): Call [phone] and ask the lcac radar operator/navigator to page the on-call doctor for the discharge attending physician. Discharging attending physician: VICENTE COULTER [[id number]] Low Fat / Low Cholesterol Diet Your goal is to limit the amount of saturated and trans fats in your diet. Keep track of how much cholesterol you eat and limit the total amount to 200mg ( milligrams) a day. If you have questions about your diet after you go home, you can call a dietitian at [phone]. Incision Care *Call if there is an increase in pain, swelling, or redness. *DO NOT soak incision in water. *NO tub baths, hot tubs, or swimming. *You may shower after discharge. Return Appointment Please call to schedule a 1 month post ablation follow up with your primary business office coordinator. Outside Provider Dr. Price Current Discharge Medication List START taking these medications Details sucralfate (CARAFATE) 1 gram tablet Take 1 tablet by mouth twice daily before meals for 30 days. Take on an empty stomach. Qty: 60 tablet, Refills: 0 PRESCRIPTION TYPE: Normal CONTINUE these medications which have NOT CHANGED Details alprazolam (XANAX) 1 mg PO tablet Take 1 mg by mouth twice daily. 1 BY MOUTH TWICE A DAY PRESCRIPTION TYPE: Historical Med apixaban (ELIQUIS) 5 mg tab tablet Take 5 mg by mouth twice daily. PRESCRIPTION TYPE: Historical Med Biotin 1 mg tab Take 1 tablet by mouth daily. PRESCRIPTION TYPE: Historical Med busPIRone (BUSPAR) 10 mg tablet Take 1 tablet by mouth twice daily. PRESCRIPTION TYPE: Historical Med enalapril (VASOTEC) 2.5 mg tablet Take 2.5 mg by mouth daily. PRESCRIPTION TYPE: Historical Med fish oil- omega 3-DHA/EPA 300/1,000 mg capsule Take 1 capsule by mouth twice daily with meals. PRESCRIPTION TYPE: Historical Med magnesium oxide (MAG-OX) 400 mg tablet Take 400 mg by mouth daily. PRESCRIPTION TYPE: Historical Med pantoprazole DR (PROTONIX) 40 mg tablet Take 1 tablet by mouth twice daily for 45 days. Qty: 72 tablet, Refills: 0 PRESCRIPTION TYPE: Phone In pravastatin (PRAVACHOL) 40 mg tablet Take 40 mg by mouth daily. PRESCRIPTION TYPE: Historical Med sertraline (ZOLOFT) 50 mg tablet Take 50 mg by mouth daily. PRESCRIPTION TYPE: Historical Med sotalol (BETAPACE) 80 mg tablet 1.5 tablet in morning, 1 tablet in evening Qty: 270 tablet, Refills: 3 PRESCRIPTION TYPE: No Print Associated Diagnoses: Paroxysmal atrial fibrillation (HCC) vitamin E 400 unit capsule Take 400 Units by mouth daily. PRESCRIPTION TYPE: Historical Med Scheduled appointments: Feb 04, 2018 1:00 PM CDT Procedure with Silverio Walker MD [facility] ([facility]) 3rd Floor Pod [address] [facility] [phone] Mar 05, 2018 1:30 PM CDT Return Patient with Vicente Coulter MD [facility] Cardiology ([facility]) [address] [facility] [address] Pending items needing follow up: Follow up with primary cardiology in 1 month, As outlined above with EP Signed: Carmen Thomas PA-C 01/22/2018 cc: Primary Care Physician: Sung Dunn III Verified Referring physicians: Dr Price ( Cardiology in [place], [place]) in this encounter Medications at Time of Discharge [...] mg by mouth 400 mg tablet daily. pravastatin (PRAVACHOL) Take 40 mg by mouth 40 mg tablet daily. sertraline (ZOLOFT) 50 mg Take 50 mg by mouth tablet daily. sotalol (BETAPACE) 80 mg 1.5 tablet in morning, 1 270 tablet 3 2017 tabletIndications: tablet in evening Paroxysmal atrial fibrillation (HCC) vitamin E 400 unit Take 400 Units by mouth capsule daily. pantoprazole DR Take 1 tablet by mouth 72 tablet 0 01/14/20182017 (PROTONIX) 40 mg tablet twice daily for 45 days. sucralfate (CARAFATE) 1 Take 1 tablet by mouth 60 tablet 0 01/22/2018 02/21/2018 gram tablet twice daily before meals for 30 days. Take on an empty stomach. as of this encounter Progress Notes * Neeta Horton RN - 01/22/2018 12:23 PM RECORD PRESS TENDER Patient discharged to home with all belongings. Discharge instructions, med reconciliation and home wound care instructions given and explained to patient and family both verbally and written. Accompanied by transport and family. No complaints of pain or discomfort. Bilateral groin sites remains clean, dry, and intact with no evidence of a hematoma after ambulation. Patient escorted to lobby via Transport. Patient to follow up with [facility] Cardiology ([facility]) or on-call physician with any additional questions or concerns. All contact numbers provided. Patient and family acceptant of DC instuctions and report understanding to all information. * Vicente Coulter MD - 01/21/2018 6:43 PM RECORD PRESS TENDER CTR nurses taking care of Ms. Hernandez. Contacted the EP lab stating that earlier in the afternoon she was complaining of some tingling in the left part of her face and lip. Her neuro exam at the time was unremarkable. Her symptoms have since resolved. When I got the message I went out and evaluated Ms. Blood. She still was asymptomatic at the time I saw her. Her neuro exam was also unremarkable. I had a question of whether she had a slight right mouth droop when she smiled it completely resolved and when looking in the mirror and pointed out to her my concern or question she stated that this was her normal appearance. I informed her if she had any recurrent symptoms to contact the nurse SHELBY. * Radha Hutchins RN - 01/21/2018 5:42 PM RECORD PRESS TENDER Formatting of this note may be different from the original. 01/21/18 1725 Vitals Temp 36.5 C (97.7 F) Temperature Source Oral Pulse 94 Respirations 17 PER MINUTE SpO2 Pulse 98 SpO2 97 % O2 Delivery RA BP 96/80 Mean NBP (Calculated) 84 MM HG BP Source Arm, Left BP Method Automatic Monitored Rhythm SR;PVC Patient called out with c/o numbness on the left eyebrow to left lip. Patient described it as if it were numb or had fallen asleep. Patient stated numbness by eyebrow resolved and states it is just her left lip that is numb now. Neuro exam otherwise negative, pupils equal, round, reactive to light. Patient is A& Ox4 and denies numbness/weakness in all extremities. BG 154. Patient resting in bed comfortably. MD Yfn notified. Will continue to monitor. * Vicente Coulter MD - 01/21/2018 1:04 PM RECORD PRESS TENDER Cardiac Electrophysiology Brief Post-Procedure Note Attending: Vicente Coulter MD Preoperative diagnosis: PAFIB Postoperative diagnosis: same Procedure(s) Performed: Paroxysmal atrial fibrillation RF ablation Procedure Description: Assessed prior right-sided CTI AFL RF Ablation conduction time prolonged and activation time HIDA low along the lateral wall suggestive of still persistent CTI bidirectional conduction block. Double transseptal performed at 0 500. PVCs mostly isolated with minimal activity. There was some activity however along the anterior ridge of the left superior pulmonary vein, posterior inferior border of the right inferior pulmonary vein, posterior superior border of the left inferior pulmonary vein, the posterior border of the right superior extending to the roof and towards anterior wall. ATACH vs. Atypical AFL--> cycle length varied was in the 260-80 ms range. Mapping was performed. There was nothing to suggest a reentrant circuit on the left side. Earliest activation was along the right superior septum. RF ablation in this region did not change the tachycardia. Entrainment pacing was performed prior to RF ablation in that location with no in treatment. There is no entrainment from the proximal CS and activation and the CS was proximal to distal or concentric. Multiple other areas in both the RA and LA were paced including the right kandace area and areas around the roof and PVCs all which showed no evidence of entrainment. After ablating the area along the septum activation changed in that area became late. Mapping was repeated. Earliest activation seem to be in the right roof just outside of the right superior PV. RF in this area again changed activation becoming late. Catheter had already been advanced into the RA mapping was performed there nothing showed very early activation. In fact the RF applications on the left side were earliest when they were delivered. Additional mapping was again performed in the LA. The activation sequence seem to be shifting. There is no reentry. Ultimately attention was turned to the right side. Catheters were withdrawn to the right side. 3D mapping was performed on the right side. Earliest activation again appeared on the septum. But the A. tach suddenly degenerated to AFIB. Within about 5 more minutes and then organized into an atrial tachycardia with a cycle length of 320 ms which had CS activation that was eccentric distal to proximal. Entrainment pacing was performed from the distal CS as well as the proximal CS. No evidence of entrainment was present. We try to overdrive pace terminate from the proximal CS, RA, and ultimately the distal CS. The distal CS ultimately successfully overdrive pace terminated the tachycardia. NOTE--was a significant amount of scar tissue and difficulty getting good contact with any electrograms along the posterior RA wall as well as the anterior RA wall. Unfortunately we were unable to identify the origin of the different atrial tachycardias. However the patient was in sinus rhythm. At that point and at the procedure. We [...] 4 weeks - No post-procedure antibiotics * Radha Hutchins RN - 01/21/2018 6:08 AM RECORD PRESS TENDER Patient arrived on unit via ambulation accompanied by family. Patient transferred to the bed without assistance. Assessment completed, refer to flowsheet for details. Orders released, reviewed, and implemented as appropriate. Oriented to surroundings, call light within reach. Plan of care reviewed. Will continue to monitor and assess. in this encounter H&P Notes * Vicente Coulter MD - 01/19/2018 8:47 AM RECORD PRESS TENDER Formatting of this note may be different from the original. Patient presents for procedure. Please see History and Physical copied below from date of service 01/01/[address] Coulter. Mary Forbes MAGNUS-Galo Date of Service: 01/01/2018 Mary Blood is a 72 y.o. female. HPI I had the pleasure of seeing your patient Mary Blood in the [facility] as a part of the [facility] Cardiology [facility] office today for follow up regarding her Paroxysmal Atrial Fibrillation. She is typically followed and was referred by my friend and colleague Dr. Price , her primary business office coordinator, in [facility]. Ms. Blood is an exceptionally pleasant 72 y.o. Female. The past medical history and data below has been reviewed and updated by me with new events for today's visit. Her PMHx briefly includes:Paroxysmal AFIB S/P Ablation in [place] 02/2016; Moderate LA Dilatation; wide Complex Tachycardia while on Flecainide; T Wave Inversion On Her Baseline Asymptomatic ECG; Normal LV Function; Nonobstructive CAD-by Cath by Dr. Price 2014; [employer] Reveal LinQ Implantable Looping Monitor device implantation 01/03/[address] Price; some orthostatic hypotension with reported syncopeno recurrences; hypertension; Anticoagulation; Hyperlipidemiaintolerant of statins with elevated LFTs-->Maintained on Fenofibrate; Spasmodic Dysphonia; Low back pain with interventricular disc disease; nonobstructive carotid artery stenosis by duplex 05/2017Dr. Price. Shehas a [id number] score of 3:Female, HTN, and age > [...] underwent AFIB Ablation by Dr. Kelly in [place], [place] -- Post AFIB Ablation--unclear what antiarrhythmic [...] -- 12/11/17: Telephone: Pt was hospitalized at [facility] with AFIB with RVR. Nurse from [facility] called to schedule CTA for ablation. Pt underwent unsuccessful CVRT and Sotalol was increased to 120 mg BID. Multaq and Metoprolol were reportedly DC'ed during hospitalization. Ablation was scheduled for 01/21 She STATES that she is feeling good. She had her CT scan done today. She states to her knowledge she has not had recurrent atrial for ablation since her hospitalization last month. He has an appointment to follow-up with Dr. Harris for a Botox injection for her spasmodic dysphonia. She claims compliance with her medications. She denies any bleeding issues-blood in the urine, blood in the stool, tolerating anticoagulation without obvious issue. She denies any chest discomfort, shortness of breath, palpitations, lightheadedness, dizziness, near syncope or syncope, PND or orthopnea. FHx, SHx and ROS documented and I have reviewed, with some pertinent features to include: No FHx of premature CAD. She is a Non-Smoker. Most pertinent ROS is included/discussed throughout the note, e.g. HPI and A/P. ASSESSMENT AND PLAN: -- Paroxysmal AFIB S/P Ablation (02/2016) -- T wave inversionon baseline asymptomatic ECG -- Normal LV Function -- Nonobstructive CAD -- [employer] Reveal LinQ Implantable Looping Monitor device implantation Dr. Price -- CAD -- Prior Wide-Complex Tachycardia on Flecainide --> No recurrences -- Hypertension -- Anticoagulation -- Hyperlipidemia -- Spasmodic Dysphonia -- Low back pain with interventricular disc disease We AGAIN had a lengthy discussion regarding Atrial Fibrillation, the pathophysiology, the mechanism, and therapeutic options. We discussed what I call the3 R's: The Rhythm being abnormal; the Rate being Rapid; and the Risk of stroke. We discussed a REDO AFIB ablation procedure. She has been interested in pursuing that. We discussed that the 5 year cure rate a redo AFIB ablation procedure for her is approximately 60-70%. We discussed the procedure and risks of an AFIB Ablation procedure to include, but not limited to: , FL, stroke, cardiac perforation, pulmonary vein stenosis, diaphragmatic [...] procedure is done under general anesthesia. We ALSO discussed the potential for a left-sided AFL in the neck could even require a third ablation unless we are able to induce it during her procedure. To my knowledge however she has not had significant AFL We did discuss that some people even undergo a third AFIB RFA but usually that is related more to a recurrence of an atypical AFL, etc. Since this is a REDO AFIB ablation I have recommended a RF approach and we will use the CARTO 3-D Mapping System since often we are doing segmental "touchup" of the prior ablated pulmonary veins. We will also assess her prior right-sided AFL RFA. Sheexpressed a verbal understanding of these details, the procedure, and the risks. After extensive discussion, She Still WISHES TO PURSUE a REDO AFIB ABLATION For her Repeat AFIB ablation procedure, we will: -- Obtain a CT Angiogram to assess herPV anatomy, and proceed accordingly.-- Which was done today will follow up the results. -- Obtain the procedure note regarding her prior AFIB ablation that was done again by Dr. Kelly in [place] in February 2016 -- Obtain a ROSIO prior to the procedure. -- Done under General Anesthesia. -- Hold her Eliquisthe morning of the procedure and take her last dose the night before, but no later than 6 PM. -- Immediately post-procedure, shewill reinitiate Anticoagulation Tx with Eliquis. -- Post-ablation, shewill reinitiate her prior Antiarrhythmic Therapy with Sotalol 120 QAM 80 mg PM. NOTE she does have significant T-wave inversion in V1 through V4 which is old and unchanged and she had negative cardiac catheterization at the time these findings were initially noted on her ECG. This resolved done by Dr. Price in [facility]. PLAN: -- As noted above, we will proceed with AFIB REDO RFA Ablation Ms. Blood was educated regarding plan of care. She [...] have scheduled her follow-up with me in 1 month(s) post-procedure. Vitals: 01/01/18 1243 BP: 113/71 Pulse: 53 Weight: 70.8 kg (156 lb) Height: 1.6 m (5' 3") Body mass index is 27.63 kg/m. 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 [...] without obvious bruit. Regular rhythm, S1, S2. 1-2/6 systolic murmur noted at the LLSB. No heaves, thrills or rubs. Musc/Skeletal-Extremities: Without significant peripheral edema. With what appears to be full ROM. LINQ Site: Is well-healed. Neuro: Patient is alert and oriented to person, place, and time. Psych: Patient does not appear anxious, she appears appropriate, with normal non-pressured speech and what appears to be appropriate judgement Cardiovascular Studies ECG today demonstrates sinus bradycardia 54 bpm, full [place] interval, some baseline artifact significant T-wave inversion in V1 through V4 all without change from prior tracing. [employer] Reveal LinQ Implantable Looping Monitor Full device check performed with reprogramming which I have extensively reviewed. Changes, if done, as discussed below and is detailed in other dictation/note. Since discharge from the hospital on 12/09, she's had 6 isidoro events, all related to under-sensed PVCs and compensatory pauses. Problems Addressed Today Encounter Diagnoses Name Primary? Cardiac device in situ Yes Paroxysmal atrial fibrillation (HCC) Current Medications (including today's revisions) alprazolam (XANAX) [...] tablet Take 400 mg by mouth daily. omeprazole DR(+) (PRILOSEC) 40 mg capsule Take 40 mg by mouth daily. [START ON 01/14/2018] pantoprazole DR (PROTONIX) 40 mg tablet Take 40 mg by mouth daily. pravastatin (PRAVACHOL) 40 mg tablet Take 40 mg by mouth daily. sertraline (ZOLOFT) 50 mg tablet Take 50 mg by mouth daily. sotalol (BETAPACE) 80 mg tablet 1.5 tablet in morning, 1 tablet in evening vitamin E 400 unit capsule Take 400 Units by mouth daily. in this encounter Plan of Treatment Date Type Specialty Care Team Description 03/25/2018 Procedure Pass Cardiology as of this encounter Procedures Procedure Name Priority Date/Time Associated Diagnosis Comments ECG-SCAN 01/25/2018 Results for this 5:16 PM CDT procedure are in the results section. TELEMETRY STRIPS-SCAN 01/24/2018 Results for this 10:32 AM RECORD PRESS TENDER procedure are in the results section. in this encounter Results * ECG-SCAN (01/25/2018 5:16 PM) Narrative Ordered by an unspecified provider. * TELEMETRY STRIPS-SCAN (01/24/2018 10:32 AM) Narrative Ordered by an unspecified provider. * BASIC METABOLIC PANEL (01/22/2018 4:30 AM) Component Value Ref Range Sodium 137 137 [...] questions. Specimen Performing Laboratory Blood MAIN LAB [address] [place], [place] [id number] * CBC (01/22/2018 4:30 AM) Component Value Ref Range White Blood Cells [...] - 11 FL Specimen Performing Laboratory Blood MAIN LAB [address] [place], [place] [id number] * POC GLUCOSE (01/21/2018 5:37 PM) Component Value Ref Range Glucose, POC 154 (H) 70 - 100 MG/DL Specimen Performing Laboratory MAIN LAB [address] [place], [place] [id number] * LIMITED ECHOCARDIOGRAM (01/21/2018 2:38 PM) Component Value Ref Range BSA 1.74 m2 Referring Provider Sung Dunn Iii Cardiology Ultrasound Siemens [id number] Machine LVIDD 4.7 3.9 - 5.3 cm [...] Specimen Performing Laboratory [facility] [address] [place] [address] * EP STUDY (01/21/2018 1:22 PM) Specimen [...] POC ACTIVATED CLOTTING TIME (01/21/2018 12:35 PM) Component Value Ref Range Activated Clotting Time 368 s Specimen Performing Laboratory [facility] [address] [place] [address] * POC ACTIVATED CLOTTING TIME (01/21/2018 12:09 PM) Component Value Ref Range Activated Clotting Time 345 s Specimen Performing Laboratory MAIN LAB [address] [place] [address] * POC ACTIVATED CLOTTING TIME (01/21/2018 12:06 PM) Component Value Ref Range Activated Clotting Time 231 s Specimen Performing Laboratory MAIN LAB [address] [place] [address] * POC ACTIVATED CLOTTING TIME (01/21/2018 11:59 AM) Component Value Ref Range Activated Clotting Time 225 s Specimen Performing Laboratory MAIN LAB [address] [place] [address] * POC ACTIVATED CLOTTING TIME (01/21/2018 11:25 AM) Component Value Ref Range Activated Clotting Time 371 s Specimen Performing Laboratory MAIN LAB [address] [place] [address] * POC ACTIVATED CLOTTING TIME (01/21/2018 11:02 AM) Component Value Ref Range Activated Clotting Time 368 s Specimen Performing Laboratory [facility] LAB [address] [place] [address] * POC ACTIVATED CLOTTING TIME (01/21/2018 10:40 AM) Component Value Ref Range Activated Clotting Time 345 s Specimen Performing Laboratory [facility] LAB [address] [place] [address] * POC ACTIVATED CLOTTING TIME (01/21/2018 10:34 AM) Component Value Ref Range Activated Clotting Time 258 s Specimen Performing Laboratory [facility] LAB [address] [place] [address] * POC ACTIVATED CLOTTING TIME (01/21/2018 10:15 AM) Component Value Ref Range Activated Clotting Time 348 s Specimen Performing Laboratory [facility] LAB [address] [place], [place] [id number] * MAGNESIUM (01/21/2018 6:40 AM) Component Value Ref Range Magnesium 1.9 1.6 - 2.6 mg/dL Specimen Performing Laboratory Blood [facility] LAB [address] [place] [address] * POC PT/INR (01/21/2018 6:27 AM) Component Value Ref Range INR POC 1.1 0.8 - 1.2 Specimen Performing Laboratory [facility] LAB [address] [place] [address] * CBC (01/21/2018 6:25 AM) Component Value Ref Range White Blood Cells 5.2 4.5 - 11.0 K/UL RBC 4.12 4.0 - 5.0 M/UL Hemoglobin 11.9 (L) 12.0 - 15.0 GM/DL Hematocrit 36.2 36 - 45 % MCV 88.0 80 - 100 FL MCH 28.8 26 - 34 PG MCHC 32.7 32.0 - 36.0 G/DL RDW 16.6 (H) 11 - 15 % Platelet Count 291 150 - 400 K/UL MPV 8.0 7 - 11 FL Specimen Performing Laboratory Blood MAIN LAB [address] [place] [address] * TYPE & CROSSMATCH (01/21/2018 6:25 AM) Component Value Ref Range Units Ordered 2 Crossmatch Expires 01/24/2018 Record Check FOUND ABO/RH(D) O POS Antibody Screen NEG Electronic Crossmatch YES Specimen Performing Laboratory Blood MAIN LAB [address] [place] [address] in this encounter Visit Diagnoses Diagnosis Paroxysmal atrial fibrillation (HCC) - Primary Atrial fibrillation Hypercholesterolemia Pure hypercholesterolemia Essential hypertension Unspecified essential hypertension Admitting Diagnoses Diagnosis Atrial Fibrillation Atrial fibrillation (HCC) Administered Medications Medication Order MAR Action Action Date Dose Rate Site acetaminophen (TYLENOL) tablet 325-650 Given 01/22/2018 650 mg mg 01:38 RECORD PRESS TENDER 325-650 mg, Oral, EVERY 4 HOURS PRN, Starting Fri01/21/18 at 1320, Until Katlin 01/22/18 at 1424, Pain non-opioid: may be used alone or in combination with opioid analgesia, TOTAL ACETAMINOPHEN DOSE NOT TO EXCEED 4GM DAILY Given 01/22/2018 650 mg 06:51 RECORD PRESS TENDER ALPRAZolam (XANAX) tablet 1 mg Given 01/21/2018 1 mg 1 mg, Oral, TWICE DAILY PRN, Starting 20:32 RECORD PRESS TENDER Fri01/21/18 at 1023, Until Katlin 01/22/18 at 1424, Anxiety PO apixaban (ELIQUIS) tablet 5 mg Given 01/21/2018 5 mg 5 mg, Oral, TWICE DAILY, First dose on 20:30 RECORD PRESS TENDER Fri01/21/18 at 1900, Until Discontinued, May crush 5 mg or 2.5 mg tablets and suspend in 60 mL of D5W followed by immediate delivery through a nasogastric tube. No information regarding administration of suspension by mouth is available. Please give 4 hrs post hemostasis post ablation. NOTE: This is a HIGH ALERT Medication. Given 01/22/2018 5 mg 08:53 RECORD PRESS TENDER benzocaine/menthol (CHLORASEPTIC) Given 01/21/2018 1 lozenge lozenge 1 lozenge 21:17 RECORD PRESS TENDER 1 lozenge, Oral, EVERY 2 HOURS PRN, Starting Fri01/21/18 at 2035, Until Katlin 01/22/18 at 1424, Mouth/Throat Pain busPIRone (BUSPAR) tablet 10 mg Given 01/21/2018 10 mg 10 mg, Oral, TWICE DAILY, First dose on 16:45 RECORD PRESS TENDER Fri01/21/18 at 1130, Until Discontinued Given 01/21/2018 10 mg 20:30 RECORD PRESS TENDER Given 01/22/2018 10 mg 08:51 RECORD PRESS TENDER diazePAM (VALIUM) injection 5 mg 5 mg, Intravenous, NEEDED (WINDING INSPECTOR FROM RX), 1 dose, Starting Fri01/21/18 at 1420, Until Katlin 01/22/18 at 1424, Other..., Anxiety for Sheath Removal enalapril (VASOTEC) tablet 2.5 mg Given 01/21/2018 2.5 mg 2.5 mg, Oral, DAILY, First dose on Fri 20:34 RECORD PRESS TENDER 01/21/18 at 1130, Until Discontinued Given 01/22/2018 2.5 mg 08:53 RECORD PRESS TENDER fentaNYL citrate PF (SUBLIMAZE) injection 25 mcg 25 mcg, Intravenous, EVERY 5 MIN PRN, Starting Fri01/21/18 at 1348, Until Katlin 01/22/18 at 1424, Pain Injectable, For Pain Score < 4, Maximum total dose of 200 mcg Hold for RR < 10 fentaNYL citrate PF (SUBLIMAZE) injection 25-75 mcg 25-75 mcg, Intravenous, EVERY 2 HOURS PRN, Starting Fri01/21/18 at 1320, Until Katlin 01/22/18 at 1424, Pain Injectable fish oil- omega 3-DHA/EPA capsule 1,000 Given 01/21/2018 1,000 mg mg 16:45 RECORD PRESS TENDER 1,000 mg, Oral, TWICE DAILY WITH MEALS, First dose on Fri01/21/18 at 1130, Until Discontinued Given 01/22/2018 1,000 mg 08:53 RECORD PRESS TENDER furosemide (LASIX) injection 40 mg Given 01/21/2018 40 mg 40 mg, Intravenous, ONCE, 1 dose, Fri 15:11 RECORD PRESS TENDER 01/21/18 at 1330, PROTECT FROM LIGHT HYDROcodone/acetaminophen (NORCO) 5/325 mg tablet 1 tablet 1 tablet, Oral, EVERY 4 HOURS PRN, Starting Fri01/21/18 at 1320, Until Katlin 3/8/18 at 1424, Pain PO, TOTAL ACETAMINOPHEN DOSE NOT TO EXCEED 4GM DAILY NOTE: This is a HIGH ALERT Medication. lidocaine PF 1% (10 mg/mL) injection 0.1-2 mL 0.1-2 mL, Injection, NEEDED, Starting Fri01/21/18 at 0609, Until Katlin 01/22/18 at 1424, Other..., for peripheral IV insertion, Admission/Obs/Extended Recovery magnesium oxide (MAG-OX) tablet 400 mg Given 01/21/2018 400 mg 400 mg, Oral, DAILY, First dose on Fri 16:45 RECORD PRESS TENDER 01/21/18 at 1130, Until Discontinued, Delivers 241.3mg elemental magnesium per tab Given 01/22/2018 400 mg 08:52 RECORD PRESS TENDER meperidine injection (DEMEROL) syringe 12.5 mg 12.5 mg, Intravenous, NEEDED, 2 doses, Starting Fri01/21/18 at 1348, Until Katlin 01/22/18 at 1424, Rigors, May repeat once ondansetron (ZOFRAN) injection 4 mg Given 01/21/2018 4 mg 4 mg, Intravenous, EVERY 6 HOURS PRN, 13:55 RECORD PRESS TENDER Starting Fri01/21/18 at 1320, Until Katlin 01/22/18 at 1424, Nausea/Vomiting Injectable pantoprazole DR (PROTONIX) tablet 40 mg Given 01/21/2018 40 mg 40 mg, Oral, TWICE DAILY, First dose on 20:29 RECORD PRESS TENDER Fri01/21/18 at 2100, Until Discontinued, Do not crush or chew tablet. Given 01/22/2018 40 mg 08:52 RECORD PRESS TENDER potassium chloride SR (K-DUR) tablet 40 Given 01/21/2018 40 mEq mEq 16:45 RECORD PRESS TENDER 40 mEq, Oral, ONCE, 1 dose, Fri01/21/18 at 1330, - Tablet may be dispersed in water. Place tab in 30 mL of water for 40-60 seconds. - Gently swirl until fully dispersed. If particles remain after admin, add small amount of water and admin remaining content. - DO NOT CRUSH. Tablet may be split in half. pravastatin (PRAVACHOL) tablet 40 mg Given 01/21/2018 40 mg 40 mg, Oral, AT BEDTIME DAILY, First 20:29 RECORD PRESS TENDER dose on Fri01/21/18 at 2100, Until Discontinued promethazine (PHENERGAN) injection 6.25 mg 6.25 mg, Intravenous, EVERY 10 MIN PRN, Starting Fri01/21/18 at 1348, Until Katlin 01/22/18 at 1424, Other..., nausea/vomiting, Second line agent, give if first line agent ineffective. Give in freely running IV and dilute in 10mL 0.9% sodium chloride. May repeat to total dose of 25 mg from all routes ordered PRN, if no relief in 15 minutes then notify anesthesia physician. PROTECT FROM LIGHT For IV Administration: a. Admin. each dose slowly over at least 5 min. Use lowest effective dose. b. Admin. through a large-bore vein (central venous site preferably). AVOID HAND OR WRIST VEINS UNLESS NO OTHER ALTERNATIVES ARE AVAILABLE. Do NOT administer intra-arterially. c. Check patency of site before admin. Inspect site around catheter tip and extremity for swelling, blanching, bleb formation, stretched and firm skin or coolness. d. Remain in continual contact with the patient during admin. and for 5 minutes following to observe for adverse reactions and monitor injection site. e. Ask patient to report any burning or discomfort during infusion. If extravasation is suspected, stop infusion immediately, implement Extravasation Management Protocol, and notify physician. sertraline (ZOLOFT) tablet 50 mg Given 01/21/2018 50 mg 50 mg, Oral, AT BEDTIME DAILY, First 20:29 RECORD PRESS TENDER dose on Fri01/21/18 at 2100, Until Discontinued sodium chloride 0.9 % infusion Given - New 01/21/2018 75 mL/hr 1,000 mL, Intravenous, at 75 mL/hr, Bag 06:56 RECORD PRESS TENDER CONTINUOUS, Starting Fri01/21/18 at 0615, Until Katlin 01/22/18 at 1424, -EF >35%: NS @ 75 mL/hr to be started the morning of the procedure (not to exceed 750 mL) -EF <35%: NS @ 20 mL/hr to be started the morning of procedure (not to exceed 500 mL) Given - New Bag 01/21/2018 07:32 RECORD PRESS TENDER sodium chloride 0.9 % infusion Bolus from 01/21/2018 1 mL 250 mL/hr 1,000 mL, Intravenous, at 50 mL/hr, Infusion 14:00 RECORD PRESS TENDER CONTINUOUS, Starting 3/7/18 at 1330, Until Katlin 01/22/18 at 1424, IV infusion to run at 50 mL/hr, saline lock when patient tolerates PO intake. Given - New Bag 01/21/2018 50 mL/hr 14:20 RECORD PRESS TENDER sotalol (BETAPACE) tablet 120 mg Given 01/22/2018 120 mg 120 mg, Oral, DAILY WITH BREAKFAST, 08:52 RECORD PRESS TENDER First dose on Fri01/22/18 at 0800, Until Discontinued sotalol (BETAPACE) tablet 80 mg Given 01/21/2018 80 mg 80 mg, Oral, AT BEDTIME DAILY, First 20:29 RECORD PRESS TENDER dose on Fri01/21/18 at 1900, Until Discontinued sucralfate (CARAFATE) tablet 1 g Given 01/21/2018 1 g 1 g, Oral, TWICE DAILY BEFORE MEALS, 16:45 RECORD PRESS TENDER First dose on Fri01/21/18 at 1145, Until Discontinued, Can be made into a slurry by placing 1 Sucralfate tablet in 30 mL water and allow to stand for 5 minutes. Given 01/22/2018 1 g 08:52 RECORD PRESS TENDER in this encounter
--- OUTSIDE RECORDS SUMMARY | 2018-04-12 11:11 | XMS REPORT | Encounter Summary ---
Author Author [facility] Organization [facility] Address Unknown Phone Unavailable Care Team Providers Care Cubing Machine Tender Name Role Phone Silverio Walker MD Unavailable Sung Dunn MD PCP Reason for Visit * Reason Comments Procedure s/p LAAA 01/21 Other small "knot" in groin Encounter Details Date Type Department Care Team Description 01/27/2018 Telephone [facility] Cardiology Meg Ledbetter RN Procedure (s/p LAAA 01/21); [address] Other (small "knot" in [address] groin) [place] [address] Social History Tobacco Use Types Packs/Day Years Used Date Never Smoker Smokeless Tobacco: Never Used Alcohol Use Drinks/Week oz/Week Comments Yes 1 Glasses of 0.6 wine Sex Assigned at Date Recorded Not on file as of this encounter Miscellaneous Notes * Telephone Encounter - Meg Ledbetter RN - 01/27/2018 10:19 AM CDT Pt contacted office with concerns regarding a small knot in her right groin s/p LAAA 01/21 Pt denies that the "knot" has grown in size, denies pain, and denies numbness and tingling. She does not notice any bruising or swelling at the site. She will contact us if the "knot" changes at all. While on the phone I completed her 1 week f/u call s/p LAAA: Call to the patient in follow up to a-fib ablation completed 01/21/18. Assessment s/s of complications after LAAA (screening for esophageal injury, PE, UTI, vascular complications, and delayed pericardial effusion). Patient denies chest pain, denies persistent nausea, vomiting or fullness, denies dysphagia, denies odynophagia, denies hematemesis/ melena, denies confusion, denies symptoms of stroke/TIA / [place], denies fever, chills rigors, denies symptoms of sepsis or systemic infection Patient denies dysuria, denies urinary frequency. Patient denies Swelling, denies Bleeding, denies groin site pain Patient denies shortness of breath, denies weight gain, denies BLE swelling. Verified appointment date/time/location with the patient for 1 mo post LAAA follow up. Scheduled on 03/05/18. Patient will plan to call the office with any change in symptoms, questions or concerns. * Telephone Encounter - Meg Ledbetter RN - 01/27/2018 10:11 AM CDT ----- Message from Yesy Tovar LPN sent at 01/27/2018 9:16 AM CDT ----- Regarding: MPE- Post op symptom VM from patient on triage line. She had procedure on 01/21/18 and she has a knot in her groin area. She needs to discuss this. Call back at home. in this encounter Plan of Treatment Date Type Specialty Care Team Description 03/25/2018 Procedure Pass Cardiology as of this encounter Visit Diagnoses Not on filein this encounter
--- OUTSIDE RECORDS SUMMARY | 2018-04-12 11:12 | XMS REPORT | Encounter Summary ---
Author Author [facility] Organization [facility] Address Unknown Phone Unavailable Care Team Providers Care Tool Marker Name Role Phone Silverio Walker MD Unavailable Sung Dunn MD PCP Reason for Referral * Test Status Reason Specialty Diagnoses / Referred By Referred To Procedures Contact Contact Authorized Cardiology Diagnoses Vicente Coulter, Bhg Card Echopv Paroxysmal [address] fibrillation [place], [place] ([facility]) [place] [address] [address] [address] [place], [place] Phone: Soma [phone] TRANSESOPHAGEAL Phone: ECHOCARDIOGRAM [phone] * Test Status Reason Specialty Diagnoses / Referred By Referred To Procedures Contact Contact Authorized Cardiology Diagnoses Vicente Coulter, Bhg Card Echopv Paroxysmal [address] [place] fibrillation [place], [place] ([facility]) [place] [address] [address] [address] [place], [place] Phone: [employer] [phone] TRANSESOPHAGEAL Phone: ECHOCARDIOGRAM [phone] Reason for Visit * Auth/Cert Status Reason Specialty Diagnoses / Referred By Referred To Procedures Contact Contact Diagnoses Atrial Fibrillation P rocedures NH EPHYS EVL TRNSPTL TX ATRIAL FIB ISOLAT PULM VEIN NH COMPRE ELECTROPHYSIOL XM W/LEFT ATRIAL PACNG/REC NH PROGRAMMED STIMJ & PACG AFTER IV DRUG NFS NH INTRACARDIAC ELECTROPHYSIOLOG IC 3D MAPPING INTRACARDIAC CATHETER ABLATION WITH COMPREHENSIVE ELECTROPHYSIOLOG IC EVALUATION - ATRIAL FIBRILLATION, TRANSEPTAL (REDO) COMPREHENSIVE ELECTROPHYSIOLOG IC EVALUATION WITH CORONARY SINUS/ LEFT ATRIUM INTRAVENOUS DRUG INFUSION FOR STIMULATION AND PACING INTRACARDIAC ELECTROPHYSIOLOG IC 3-DIMENSIONAL MAPPING Encounter Details Date Type Department Care Team Description 01/21/2018 [facility] Cardiology Vicente Coulter MD Encounter [address] [place] [address] [place] [address] [place], [place] [id number] Social History Tobacco Use Types Packs/Day Years Used Date Never Smoker Smokeless Tobacco: Never Used Alcohol Use Drinks/Week oz/Week Comments Yes 1 Glasses of 0.6 wine Sex Assigned at Date Recorded Not on file as of this encounter Last Filed Vital Signs Vital Sign Reading Time Taken Blood Pressure 110/72 01/21/2018 2:38 PM DUCO POLISHER Pulse - - Temperature - - Respiratory Rate - - Oxygen Saturation - - Inhaled Oxygen - - Concentration Weight 68 kg (149 lb 14.6 oz) 01/21/2018 2:38 PM DUCO POLISHER Height 160 cm (5' 3") 01/21/2018 2:38 PM DUCO POLISHER Body Mass Index 26.56 01/21/2018 2:38 PM DUCO POLISHER in this encounter Medications at Time of [...] an empty stomach. as of this encounter Plan of Treatment Date Type Specialty Care Team Description 03/25/2018 Procedure Pass Cardiology as of this encounter Results * TRANSESOPHAGEAL ECHOCARDIOGRAM (01/21/2018 8:46 AM) Component Value Ref Range BSA 1.74 m2 Referring Provider Sung Dunn iii CV ECHO PV STEEL SAMPLER EP lab staff Cardiology Ultrasound Siemens [id number] Machine ECHO EF 55 % Specimen Performing Laboratory OTHER OUTSIDE LAB Narrative Left ventricular systolic function is within normal limits. LVEF 55% No left atrial appendage thrombus. No significant valvular abnormalities. No pericardial effusion. in this encounter Visit Diagnoses Diagnosis Paroxysmal atrial fibrillation (HCC) Atrial fibrillation
--- OUTSIDE RECORDS SUMMARY | 2018-04-12 11:12 | XMS REPORT | Encounter Summary ---
Author Author [facility] Organization [facility] Address Unknown Phone Unavailable Care Team Providers Care Exhaust And Muffler Repairer Name Role Phone Silverio Walker MD Unavailable Sung Dunn MD PCP Encounter Details Date Type Department Care Team Description 01/13/2018 Pre-Admit [facility] Cardiology Alethea Rader, RN Orders Only [address] [place], [place] [id number] Social History Tobacco Use Types Packs/Day Years [...]
--- OUTSIDE RECORDS SUMMARY | 2018-04-12 11:12 | XMS REPORT | Encounter Summary ---
Author Author [facility] Organization [facility] Address Unknown Phone Unavailable Care Team Providers Care Blanking Press Operator Name Role Phone Silverio Walker MD Unavailable Sung Dunn MD PCP Encounter Details Date Type Department Care Team Description 01/20/2018 Orders Only [facility] Card[facility] Daisy Osman Paroxysmal atrial [address] fibrillation (HCC) [place] [id number] Social History Tobacco Use Types Packs/Day Years Used Date Never Smoker Smokeless Tobacco: Never Used Alcohol Use Drinks/Week oz/Week Comments Yes 1 Glasses of 0.6 wine Sex Assigned at Date Recorded Not on file as of this encounter Plan of Treatment Date Type Specialty Care Team Description 03/25/2018 Procedure Pass Cardiology as of this encounter Results * BASIC METABOLIC PANEL (01/16/2018) Component Value Ref Range Sodium 135 Potassium 4.1 Chloride 99 CO2 31.0 Blood Urea Nitrogen 20 Creatinine 0.8 Glucose 76 Calcium 9.1 eGFR Non 78 eGFR Anion Gap 9 Specimen Performing Laboratory Blood MAG LAB [facility] [address] [facility] [address] [place] [address] in this encounter Visit Diagnoses Diagnosis Paroxysmal atrial fibrillation (HCC) Atrial fibrillation
--- OUTSIDE RECORDS SUMMARY | 2018-04-12 11:12 | XMS REPORT | Encounter Summary ---
Author Author [facility] Organization [facility] Address Unknown Phone Unavailable Care Team Providers Care Dish Maker Name Role Phone Silverio Walker MD Unavailable Sung Dunn MD PCP Encounter Details Date Type Department Care Team Description 01/14/2018 Telephone [facility] Cardiology Flaquita AlvaradoARACELIS [address] [place] [address] Social History Tobacco Use Types Packs/Day Years Used Date Never Smoker Smokeless Tobacco: Never Used Alcohol Use Drinks/Week oz/Week Comments Yes 1 Glasses of 0.6 wine Sex Assigned at Date Recorded Not on file as of this encounter Miscellaneous Notes * Addendum Note - Flaquita AlvaradoARACELIS - 01/14/2018 1:12 PM TUNNEL ELASTIC OPERATOR LOCKSTITCH Addended by: FLAQUITA ALVARADO on: 01/14/2018 01:12 PM Modules accepted: Orders * Telephone Encounter - Flaquita AlvaradoARACELIS - 01/14/2018 1:09 PM TUNNEL ELASTIC OPERATOR LOCKSTITCH Skype message from Alethea Rader RN at 11:45am: start today. protonix 40 mg twice daily #72 takes one week before procedure and 4 weeks after. Called [facility] and gave above instructions to pharmacists. He will call patient to berry picker and give her instructions. * Telephone Encounter - Flaquita AlvaradoARACELIS - 01/14/2018 10:28 AM TUNNEL ELASTIC OPERATOR LOCKSTITCH VM from patient on triage line. Said that her Protonix was not hat her pharmacy. Called patient and she wanted us to take [facility] out of her chart and I did. New Rx sent for her to [facility] [place] [address] [address]. in this encounter Plan of Treatment Date Type Specialty Care Team Description 03/25/2018 Procedure Pass Cardiology as of this encounter Visit Diagnoses Not on filein this encounter
--- OUTSIDE RECORDS SUMMARY | 2018-04-12 11:12 | XMS REPORT | Encounter Summary ---
Author Author [facility] Organization [facility] Address Unknown Phone Unavailable Care Team Providers Care Barrel Loader And Cleaner Name Role Phone Silverio Walker MD Unavailable Sung Dunn MD PCP Reason for Visit * Reason Comments Labs Only Pre procedure labs Encounter Details Date Type Department Care Team Description 01/20/2018 Telephone [facility] Cardiology Daisy Osman Labs Only ( Pre procedure [address]) [place] [address] Social History Tobacco Use Types Packs/Day Years Used Date Never Smoker Smokeless Tobacco: Never Used Alcohol Use Drinks/Week oz/Week Comments Yes 1 Glasses of 0.6 wine Sex Assigned at Date Recorded Not on file as of this encounter Miscellaneous Notes * Telephone Encounter - Daisy Osman - 01/20/2018 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 I called [facility] at [phone], they only manish BMP. They [facility] results [facility]. ----- Message from Vanesa Flowers RN sent at 01/20/2018 7:50 AM [employer] ----- Regarding: FW: labs ----- Message ----- From: Laurie Vargas RN Sent: 01/20/2018 5:20 AM To: Mac Nurse Ep Subject: labs I am working up Mary for her EP procedure with Yfn tomorrow 01/21 and need lab results. Thanks Laurie in this encounter Plan of Treatment Date Type Specialty Care Team Description 03/25/2018 Procedure Pass Cardiology as of this encounter Visit Diagnoses Not on filein this encounter
--- OUTSIDE RECORDS SUMMARY | 2018-04-12 11:12 | XMS REPORT | Encounter Summary ---
Author Author [facility] Organization [facility] Address Unknown Phone Unavailable Care Team Providers Care Heel Seat Pounder Name Role Phone Silverio Walker MD Unavailable Sung Dunn MD PCP Reason for Visit * Reason Comments Medication Question Encounter Details Date Type Department Care Team Description 01/14/2018 Telephone [facility] Silverio Walker MD Medication Question Physicians - ENT [address] FLOOR P[address] [place] [address] OFFICE BLDG [phone] [place] [address] Social History Tobacco Use Types Packs/Day Years Used Date Never Smoker Smokeless Tobacco: Never Used Alcohol Use Drinks/Week oz/Week Comments Yes 1 Glasses of 0.6 wine Sex Assigned at Date Recorded Not on file as of this encounter Miscellaneous Notes * Telephone Encounter - Brielle Raya RN - 01/14/2018 9:16 AM MANAGER ADULT Returned patient call regarding her upcoming botox injection with Dr. Walker. Patient wanted to know if taking Eliquis would effect the botox injection and if she should discontinue it on her botox day. Advised patient she should not discontinue Eliquis for the botox injection. Verified appointment on February 04 at 1:00pm at the [facility] with Dr. Walker for botox. She will call again if she has any further questions before her scheduled appointment. in this encounter Plan of Treatment Date Type Specialty Care Team Description 03/25/2018 Procedure Pass Cardiology as of this encounter Visit Diagnoses Not on filein this encounter
--- OUTSIDE RECORDS SUMMARY | 2018-04-12 11:12 | XMS REPORT | Encounter Summary ---
Author Author [facility] Organization [facility] Address Unknown Phone Unavailable Care Team Providers Care Molecular Biology Scientist Name Role Phone Silverio Walker MD Unavailable Sung Dunn MD PCP Reason for Visit * Auth/Cert Status Reason Specialty Diagnoses / Referred By Referred To Procedures Contact Contact Diagnoses Atrial Fibrillation P rocedures MT EPHYS EVL TRNSPTL TX ATRIAL FIB ISOLAT PULM VEIN MT COMPRE ELECTROPHYSIOL XM W/LEFT ATRIAL PACNG/REC MT PROGRAMMED STIMJ & PACG AFTER IV DRUG NFS MT INTRACARDIAC ELECTROPHYSIOLOG IC 3D MAPPING INTRACARDIAC CATHETER ABLATION WITH COMPREHENSIVE ELECTROPHYSIOLOG IC EVALUATION - ATRIAL FIBRILLATION, TRANSEPTAL (REDO) COMPREHENSIVE ELECTROPHYSIOLOG IC EVALUATION WITH CORONARY SINUS/ LEFT ATRIUM INTRAVENOUS DRUG INFUSION FOR STIMULATION AND PACING INTRACARDIAC ELECTROPHYSIOLOG IC 3-DIMENSIONAL MAPPING Encounter Details Date Type Department Care Team Description 01/21/2018 Surgery Cardiac Catheterization Vicente Coulter MD INTRACARDIAC CATHETER Laboratory [address] ABLATION WITH [address] [place] [address] [place] [address] ELECTROPHYSIOLOGIC [phone] EVALUATION - ATRIAL FIBRILLATION, TRANSEPTAL (REDO) Social History Tobacco Use Types Packs/Day Years Used Date Never Smoker Smokeless Tobacco: Never Used Alcohol Use Drinks/Week oz/Week Comments Yes 1 Glasses of 0.6 wine Sex Assigned at Date Recorded Not on file as of this encounter Last Filed Vital Signs Vital Sign Reading Time Taken Blood Pressure 134/84 01/22/2018 12:06 AM POTATO CHIP SORTER Pulse 69 01/22/2018 12:06 AM POTATO CHIP SORTER Temperature 36.9 C (98.5 F) 01/22/2018 5:00 AM POTATO CHIP SORTER Respiratory Rate - - Oxygen Saturation 97% 01/21/2018 11:00 PM POTATO CHIP SORTER Inhaled Oxygen - - Concentration Weight 68.8 kg (151 lb 10.8 oz) 01/21/2018 6:21 AM POTATO CHIP SORTER Height 160 cm (5' 3") 01/21/2018 6:21 AM POTATO CHIP SORTER Body Mass Index 26.87 01/21/2018 6:21 AM POTATO CHIP SORTER in this encounter Discharge Summaries * Carmen Thomas PA-C - 01/20/2018 1:52 PM POTATO CHIP SORTER Formatting of this note may be different [...] yr old with follows with 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 In 2017 she was hospitalized at [facility] with Afib with RVR, she underwent unsuccessful [...] instructions). She will follow up with Dr Coluter in 1 month post ablation as outlined [...] HOURS (8:00 AM - 4:30 PM): Call [phone] and asked to be transferred to your discharge attending physician. - AFTER BUSINESS HOURS (4:30 PM - 8:00 AM, on weekends, or holidays): Call [phone] and ask the fire alarm operator to page the on-call doctor for the discharge attending physician. Discharging attending physician: VICENTE COULTER [[id number]] Low Fat / Low Cholesterol Diet Your goal is to limit the amount of saturated and trans fats in your diet. Keep track of how much cholesterol you eat and limit the total amount to 200mg ( milligrams) a day. If you have questions about your diet after you go home, you can call a dietitian at [phone]. Incision Care *Call if there is an increase in pain, swelling, or redness. *DO NOT soak incision in water. *NO tub baths, hot tubs, or swimming. *You may shower after discharge. Return Appointment Please call to schedule a 1 month post ablation follow up with your primary solution mixer. Outside Provider Dr. Price Current Discharge Medication [...] PM CDT Procedure with Silverio Walker MD [facility] Physicians - ENT ([facility]) 3rd Floor Pod C [address] Med Office Bldg [facility] [address] Mar 05, 2018 1:30 PM CDT Return Patient with Vicente Coulter MD [facility] Cardiology ([facility]) [address] [facility] [address] Pending items needing follow up: Follow up with primary cardiology in 1 month, As outlined above with EP Signed: Carmen Thomas PA-C 01/22/2018 cc: Primary Care Physician: Sung Dunn III Verified Referring physicians: Dr Price ( Cardiology in [place], [place]) in this encounter Medications at Time [...] Neeta Horton RN - 01/22/2018 12:23 PM POTATO CHIP SORTER Patient discharged to home with all belongings. [...] via Transport. Patient to follow up with [facility] Cardiology ([facility]) or on-call physician with any additional questions or concerns. All contact numbers provided. Patient and family acceptant of DC instuctions and report understanding to all information. * Vicente Coulter MD - 01/21/2018 6:43 PM POTATO CHIP SORTER CTR nurses taking care of Ms. Hernandez. [...] Radha Hutchins RN - 01/21/2018 5:42 PM POTATO CHIP SORTER Formatting of this note may be different [...] Vicente Coulter MD - 01/21/2018 1:04 PM POTATO CHIP SORTER Cardiac Electrophysiology Brief Post-Procedure Note Attending: Vicente [...] Radha Hutchins RN - 01/21/2018 6:08 AM POTATO CHIP SORTER Patient arrived on unit via ambulation accompanied by family. Patient transferred to the bed without assistance. Assessment completed, refer to flowsheet for details. Orders released, reviewed, and implemented as appropriate. Oriented to surroundings, call light within reach. Plan of care reviewed. Will continue to monitor and assess. in this encounter H&P Notes * Vicente Coulter MD - 01/19/2018 8:47 AM POTATO CHIP SORTER Formatting of this note may be different from the original. Patient presents for procedure. Please see History and Physical copied below from date of service 01/01/[address] Coulter. Mary Forbes MAGNUS-Galo Date of Service: 01/01/2018 Mary Blood is a 72 y.o. female. HPI I had the pleasure of seeing your patient Mary Blood in the [facility] as a part of the [facility] Cardiology [facility] office today for follow up regarding her Paroxysmal Atrial Fibrillation. She is typically followed and was referred by my friend and colleague Dr. Price , her primary solution mixer, in [facility]. Ms. Blood is an exceptionally pleasant 72 y.o. Female. The past medical history and data below has been reviewed and updated by me with new events for today's visit. Her PMHx briefly includes:Paroxysmal AFIB S/P Ablation in [place] 02/2016; Moderate LA Dilatation; wide Complex Tachycardia [...] stenosis by duplex 05/2017Dr. Price. Shehas a [id number] score of 3:Female, HTN, and age > [...] underwent AFIB Ablation by Dr. Kelly in [place] -- Post AFIB Ablation--unclear what antiarrhythmic [...] -- 12/11/17: Telephone: Pt was hospitalized at [facility] with AFIB with RVR. Nurse from [facility] called to schedule CTA for ablation. Pt [...] to include, but not limited to: , [place], stroke, cardiac perforation, pulmonary vein stenosis, diaphragmatic [...] was done again by Dr. Kelly in [place] in February 2016 -- Obtain a ROSIO [...] This resolved done by Dr. Price in [facility]. PLAN: -- As noted above, [...] today demonstrates sinus bradycardia 54 bpm, full MT interval, some baseline artifact significant T-wave inversion in V1 through V4 all without change from prior tracing. Punch!tronic Reveal LinQ Implantable Looping Monitor Full device [...] STRIPS-SCAN 01/24/2018 Results for this 10:32 AM POTATO CHIP SORTER procedure are in the results section. in [...] questions. Specimen Performing Laboratory Blood MAIN LAB [address] [place] [address] * CBC (01/22/2018 4:30 AM) Component Value [...] FL Specimen Performing Laboratory Blood MAIN LAB [address] [place] [address] * POC GLUCOSE (01/21/2018 5:37 PM) Component Value Ref Range Glucose, POC 154 (H) 70 - 100 MG/DL Specimen Performing Laboratory MAIN LAB [address] [place] [address] * LIMITED ECHOCARDIOGRAM (01/21/2018 2:38 PM) Component Value Ref Range BSA 1.74 m2 Referring Provider Sung Dunn Iii Cardiology Ultrasound Siemens [id number] Machine LVIDD 4.7 3.9 - 5.3 cm [...] Clotting Time 246 s Specimen Performing Laboratory MAIN LAB [address] [place] [address] * EP STUDY (01/21/2018 1:22 PM) Specimen [...] Specimen Performing Laboratory [facility]IN [facility] [address] [place] [address] * POC ACTIVATED CLOTTING TIME (01/21/2018 12:09 PM) Component Value Ref Range Activated Clotting Time 345 s Specimen Performing Laboratory [facility] MAIN [facility] [address] [place] [address] * POC ACTIVATED CLOTTING TIME (01/21/2018 12:06 PM) Component Value Ref Range Activated Clotting Time 231 s Specimen Performing Laboratory MAIN LAB [address] [place] [address] * POC ACTIVATED CLOTTING TIME (01/21/2018 11:59 AM) Component Value Ref Range Activated Clotting Time 225 s Specimen Performing Laboratory MAIN LAB [address] [place] [address] * POC ACTIVATED CLOTTING TIME (01/21/2018 11:25 AM) Component Value Ref Range Activated Clotting Time 371 s Specimen Performing Laboratory MAIN LAB [address] [place] [address] * POC ACTIVATED CLOTTING TIME (01/21/2018 11:02 AM) Component Value Ref Range Activated Clotting Time 368 s Specimen Performing Laboratory [facility] [address] [place] [address] * POC ACTIVATED CLOTTING TIME (01/21/2018 10:40 AM) Component Value Ref Range Activated Clotting Time 345 s Specimen Performing Laboratory [facility] [address] [place] [address] * POC ACTIVATED CLOTTING TIME (01/21/2018 10:34 AM) Component Value Ref Range Activated Clotting Time 258 s Specimen Performing Laboratory [facility] [address] [place] [address] * POC ACTIVATED CLOTTING TIME (01/21/2018 10:15 AM) Component Value Ref Range Activated Clotting Time 348 s Specimen Performing Laboratory [facility] [address] [place] [address] * MAGNESIUM (01/21/2018 6:40 AM) Component Value Ref Range Magnesium 1.9 1.6 - 2.6 mg/dL Specimen Performing Laboratory Blood [facility] [address] [place] [address] * POC PT/INR (01/21/2018 6:27 AM) Component Value Ref Range INR POC 1.1 0.8 - 1.2 Specimen Performing Laboratory MAIN LAB [address] [place], [place] [id number] * CBC (01/21/2018 6:25 AM) Component Value [...] Performing Laboratory Blood [facility] MAIN LAB [address] [place] [address] * TYPE & CROSSMATCH (01/21/2018 6:25 AM) Component Value Ref Range Units Ordered 2 Crossmatch Expires 01/24/2018 Record Check FOUND ABO/RH(D) O POS Antibody Screen NEG Electronic Crossmatch YES Specimen Performing Laboratory Blood MAIN LAB [address] [place] [address] in this encounter Visit Diagnoses Not on filein this encounter Admitting Diagnoses Diagnosis Atrial Fibrillation Atrial fibrillation (HCC) Administered Medications Medication Order MAR Action Action Date Dose Rate Site acetaminophen (TYLENOL) tablet 325-650 Given 01/22/2018 650 mg mg 01:38 POTATO CHIP SORTER 325-650 mg, Oral, EVERY 4 HOURS PRN, Starting Fri01/21/18 at 1320, Until [place] 01/22/18 at 1424, Pain non-opioid: may be used alone or in combination with opioid analgesia, TOTAL ACETAMINOPHEN DOSE NOT TO EXCEED 4GM DAILY Given 01/22/2018 650 mg 06:51 POTATO CHIP SORTER ALPRAZolam (XANAX) tablet 1 mg Given 01/21/2018 1 mg 1 mg, Oral, TWICE DAILY PRN, Starting 20:32 POTATO CHIP SORTER Fri01/21/18 at 1023, Until [place] 01/22/18 at 1424, Anxiety PO apixaban (ELIQUIS) tablet 5 mg Given 01/21/2018 5 mg 5 mg, Oral, TWICE DAILY, First dose on 20:30 POTATO CHIP SORTER Fri01/21/18 at 1900, Until Discontinued, May crush 5 mg or 2.5 mg tablets and suspend in 60 mL of D5W followed by immediate delivery through a nasogastric tube. No information regarding administration of suspension by mouth is available. Please give 4 hrs post hemostasis post ablation. NOTE: This is a HIGH ALERT Medication. Given 01/22/2018 5 mg 08:53 POTATO CHIP SORTER benzocaine/menthol (CHLORASEPTIC) Given 01/21/2018 1 lozenge lozenge 1 lozenge 21:17 POTATO CHIP SORTER 1 lozenge, Oral, EVERY 2 HOURS PRN, Starting Fri01/21/18 at 2035, Until [place] 01/22/18 at 1424, Mouth/Throat Pain busPIRone (BUSPAR) tablet 10 mg Given 01/21/2018 10 mg 10 mg, Oral, TWICE DAILY, First dose on 16:45 POTATO CHIP SORTER Fri01/21/18 at 1130, Until Discontinued Given 01/21/2018 10 mg 20:30 POTATO CHIP SORTER Given 01/22/2018 10 mg 08:51 POTATO CHIP SORTER diazePAM (VALIUM) injection 5 mg 5 mg, Intravenous, NEEDED (SENIOR QUALITY ASSURANCE ENGINEER FROM RX), 1 dose, Starting Fri01/21/18 at 1420, Until [place] 01/22/18 at 1424, Other..., Anxiety for Sheath Removal enalapril (VASOTEC) tablet 2.5 mg Given 01/21/2018 2.5 mg 2.5 mg, Oral, DAILY, First dose on Fri 20:34 POTATO CHIP SORTER 01/21/18 at 1130, Until Discontinued Given 01/22/2018 2.5 mg 08:53 POTATO CHIP SORTER fentaNYL citrate PF (SUBLIMAZE) injection 25 mcg [...] 1,000 Given 01/21/2018 1,000 mg mg 16:45 POTATO CHIP SORTER 1,000 mg, Oral, TWICE DAILY WITH MEALS, First dose on Fri01/21/18 at 1130, Until Discontinued Given 01/22/2018 1,000 mg 08:53 POTATO CHIP SORTER furosemide (LASIX) injection 40 mg Given 01/21/2018 40 mg 40 mg, Intravenous, ONCE, 1 dose, Fri 15:11 POTATO CHIP SORTER 01/21/18 at 1330, PROTECT FROM LIGHT HYDROcodone/acetaminophen (NORCO) 5/325 mg tablet 1 tablet 1 tablet, Oral, EVERY 4 HOURS PRN, Starting Fri01/21/18 at 1320, Until [place] 01/22/18 at 1424, Pain PO, TOTAL ACETAMINOPHEN DOSE [...] Oral, DAILY, First dose on Fri 16:45 POTATO CHIP SORTER 01/21/18 at 1130, Until Discontinued, Delivers 241.3mg elemental magnesium per tab Given 01/22/2018 400 mg 08:52 POTATO CHIP SORTER meperidine injection (DEMEROL) syringe 12.5 mg 12.5 mg, Intravenous, NEEDED, 2 doses, Starting Fri01/21/18 at 1348, Until [place] 01/22/18 at 1424, Rigors, May repeat once ondansetron (ZOFRAN) injection 4 mg Given 01/21/2018 4 mg 4 mg, Intravenous, EVERY 6 HOURS PRN, 13:55 POTATO CHIP SORTER Starting Fri01/21/18 at 1320, Until [place] 01/22/18 at 1424, Nausea/Vomiting Injectable pantoprazole DR (PROTONIX) tablet 40 mg Given 01/21/2018 40 mg 40 mg, Oral, TWICE DAILY, First dose on 20:29 POTATO CHIP SORTER Fri01/21/18 at 2100, Until Discontinued, Do not crush or chew tablet. Given 01/22/2018 40 mg 08:52 POTATO CHIP SORTER potassium chloride SR (K-DUR) tablet 40 Given 01/21/2018 40 mEq mEq 16:45 POTATO CHIP SORTER 40 mEq, Oral, ONCE, 1 dose, Fri01/21/18 [...] mg, Oral, AT BEDTIME DAILY, First 20:29 POTATO CHIP SORTER dose on Fri01/21/18 at 2100, Until Discontinued [...] mg, Oral, AT BEDTIME DAILY, First 20:29 POTATO CHIP SORTER dose on Fri01/21/18 at 2100, Until Discontinued sodium chloride 0.9 % infusion Given - New 01/21/2018 75 mL/hr 1,000 mL, Intravenous, at 75 mL/hr, Bag 06:56 POTATO CHIP SORTER CONTINUOUS, Starting Fri01/21/18 at 0615, Until [place] 01/22/18 at 1424, -EF >35%: NS @ 75 mL/hr to be started the morning of the procedure (not to exceed 750 mL) -EF <35%: NS @ 20 mL/hr to be started the morning of procedure (not to exceed 500 mL) Given - New Bag 01/21/2018 07:32 POTATO CHIP SORTER sodium chloride 0.9 % infusion Bolus from 01/21/2018 1 mL 250 mL/hr 1,000 mL, Intravenous, at 50 mL/hr, Infusion 14:00 POTATO CHIP SORTER CONTINUOUS, Starting Fri01/21/18 at 1330, Until [place] 01/22/18 at 1424, IV infusion to run at 50 mL/hr, saline lock when patient tolerates PO intake. Given - New Bag 01/21/2018 50 mL/hr 14:20 POTATO CHIP SORTER sotalol (BETAPACE) tablet 120 mg Given 01/22/2018 120 mg 120 mg, Oral, DAILY WITH BREAKFAST, 08:52 POTATO CHIP SORTER First dose on [place] 01/22/18 at 0800, Until Discontinued sotalol (BETAPACE) tablet 80 mg Given 01/21/2018 80 mg 80 mg, Oral, AT BEDTIME DAILY, First 20:29 POTATO CHIP SORTER dose on Fri01/21/18 at 1900, Until Discontinued sucralfate (CARAFATE) tablet 1 g Given 01/21/2018 1 g 1 g, Oral, TWICE DAILY BEFORE MEALS, 16:45 POTATO CHIP SORTER First dose on Fri01/21/18 at 1145, Until Discontinued, Can be made into a slurry by placing 1 Sucralfate tablet in 30 mL water and allow to stand for 5 minutes. Given 01/22/2018 1 g 08:52 POTATO CHIP SORTER in this encounter
--- OUTSIDE RECORDS SUMMARY | 2018-04-12 11:12 | XMS REPORT | Encounter Summary ---
Author Author [facility] Organization [facility] Address Unknown Phone Unavailable Care Team Providers Care Nailhead Setter Name Role Phone Silverio Walker MD Unavailable Sung Dunn MD PCP Reason for Visit * Auth/Cert Status Reason Specialty Diagnoses / Referred By Referred To Procedures Contact Contact Diagnoses Atrial Fibrillation P rocedures OK EPHYS EVL TRNSPTL TX ATRIAL FIB ISOLAT PULM VEIN OK COMPRE ELECTROPHYSIOL XM W/LEFT ATRIAL PACNG/REC OK PROGRAMMED STIMJ & PACG AFTER IV DRUG NFS OK INTRACARDIAC ELECTROPHYSIOLOG IC 3D MAPPING INTRACARDIAC CATHETER ABLATION WITH COMPREHENSIVE ELECTROPHYSIOLOG IC EVALUATION - ATRIAL FIBRILLATION, TRANSEPTAL (REDO) COMPREHENSIVE ELECTROPHYSIOLOG IC EVALUATION WITH CORONARY SINUS/ LEFT [facility] INTRAVENOUS DRUG INFUSION FOR STIMULATION AND PACING INTRACARDIAC ELECTROPHYSIOLOG IC 3-DIMENSIONAL MAPPING Encounter Details Date Type Department Care Team Description 01/21/2018 Anesthesia Cardiac Catheterization Milton Aguilar [facility] [address] [place] [address] Anesthesia Record Procedure Name Responsible Anesthesia Start Time Anesthesia Stop Time Anesthesiologist INTRACARDIAC CATHETER Andriy Solis MD 01/21/18 0736 01/21/18 1320 ABLATION WITH COMPREHENSIVE ELECTROPHYSIOLOGIC EVALUATION - ATRIAL FIBRILLATION, TRANSEPTAL (REDO) (N/A ) Date Time Event Comment 708 AN Equip Check 2018 0536 Anes Start 0740 An Start Data 0749 An Induction The patient was reevaluated immediately before moderate or deep sedation use and before anesthesia induction. 0756 An Intubation 0757 Anesthesia Ready 0808 AN ROSIO 1308 An Extubation 1313 an stop data 1320 Handoff to RN I completed my SBAR handoff to the receiving nurse. 1320 An Stop Meds Name Total fentaNYL PF (SUBLIMAZE) injection 100 mcg lidocaine (2%) 200 mg/10mL Injection 80 mg syringe propofol (DIPRIVAN) 200 mg/ 20 mL 150 mg injection (VIAL) rocuronium (ZEMURON) injection 50 mg dexamethasone (DECADRON) 4 mg/mL 4 mg injection phenylephrine (INDIRA-SYNEPHRINE) 0.1 mg/mL 100 mcg injection (SYRINGE) sugammadex (BRIDION) 100 mg/mL iv soln 130 mg phenylephrine (INDIRA-SYNEPHRINE) 10 mg in 9.44 mg sodium chloride 0.9% (NS) 250 mL IV drip (std conc) haloperidol (HALDOL) injection 1 mg sodium chloride 0.9 % infusion 800 mL * Name O2 N2O Inspired N2O Air Sevoflurane Isoflurane Inspired Isoflurane Inspired Sevoflurane * No blood administrations on file. Type Details Placement Removal Peripheral 01/21/18; 0702; RN; L; Forearm; 20 G; 01/21/18 0702 by Cuong , 01/22/18 1224 by Clifford, IV 01/22/18; 1224 DIANE Garcia RN ETT 01/21/18; 0756; Ventilated by mask (1); 01/21/18 0756 by Schelp, 06/03 1310 by Noreen, Direct laryngoscopy; Single-Lumen, Violeta, ON SITE SERVICES SPECIALIST Violeta, ON SITE SERVICES SPECIALIST Cuffed; 7mm; Mac; 3; Oral; 1-Full view of the glottis; 1 insertion attempt; ETCO2 Detector, Auscultation; 21 centimeters; 01/21/18; 1310 Indwelling 01/21/18; 1112; 16 FR; Regular 01/21/18 1112 by Hutchins, 06/03 203 by Kituva, Urinary (Two-way); 01/21/18; 2035 DIANE Garcia RN Catheter in this encounter Social History Tobacco Use Types Packs/Day Years Used Date Never Smoker Smokeless Tobacco: Never Used Alcohol Use Drinks/Week oz/Week Comments Yes 1 Glasses of 0.6 wine Sex Assigned at Date Recorded Not on file as of this encounter OR Notes * Anesthesia Postprocedure Evaluation - Abida Elizabeth MD - 01/21/2018 2:27 PM MANAGEMENT TRAINEE Post-Anesthesia Evaluation Name: Mary Roth : 1945 Age: 72 y.o. Sex: female Procedure Date: 01/21/2018 Procedure: Procedure(s) with comments: INTRACARDIAC CATHETER ABLATION WITH COMPREHENSIVE ELECTROPHYSIOLOGIC EVALUATION - ATRIAL FIBRILLATION, TRANSEPTAL (REDO) - 729 ROSIO, GENERAL ANESTHESIA, REQUEST 1ST CASE, CARTO, RESEARCH CASE, PRE-ABLATION ROSIO NEEDED, RETRIEVE CTA, AMAYA, CONTRAST ANTICIPATED COMPREHENSIVE ELECTROPHYSIOLOGIC EVALUATION WITH CORONARY SINUS/ LEFT [facility] INTRAVENOUS DRUG INFUSION FOR STIMULATION AND PACING INTRACARDIAC ELECTROPHYSIOLOGIC 3-DIMENSIONAL MAPPING Surgeon: Surgeon(s): Vicente Coulter MD Post-Anesthesia Vitals BP: 106/69 (01/21 1415) Temp: 36.5 C (97.7 F) (01/21 1325) Pulse: 81 (01/21 1415) Respirations: 16 PER MINUTE (01/21 1415) SpO2: 95 % (01/21 1415) O2 Delivery: None (Room Air) (01/21 1405) SpO2 Pulse: 81 (01/21 1415) Height: 160 cm (63") (01/21 0846) Post Anesthesia Evaluation Note Evaluation location: pre/post Patient participation: recovered; patient participated in evaluation Level of consciousness: alert Pain score: 0 Pain management: adequate Hydration: normovolemia Temperature: 36.0C - 38.4C Airway patency: adequate Perioperative Events Perioperative events: no Post-op nausea and vomiting: no PONV Postoperative Status Cardiovascular status: hemodynamically stable Respiratory status: spontaneous ventilation Perioperative Events Perioperative Event: No Emergency Case Activation: No Associated attestation - Prabhjot Gutierrez-Krunal Selby MD - 01/21/2018 2:48 PM MANAGEMENT TRAINEE Formatting of this note may be different from the original. ATTESTATION I reviewed the current evaluation and agree that the appropriate post- anesthetic care was administered and that the patient meets requirement for discharge from the post-anesthetic care unit. Staff name: Prabhjot Gutierrez MD Date: 01/21/2018 * Anesthesia Preprocedure Evaluation - Andriy Solis MD - 01/01/2018 12:31 PM MANAGEMENT TRAINEE Formatting of this note may be different from the original. Anesthesia Pre-Procedure Evaluation Name: Mary Roth : 1945 Age: 72 y.o. Sex: female Procedure Date: 01/21/2018 Procedure: Procedure(s) with comments: INTRACARDIAC CATHETER ABLATION WITH COMPREHENSIVE ELECTROPHYSIOLOGIC EVALUATION - ATRIAL FIBRILLATION, TRANSEPTAL (REDO) - 729 ROSIO, GENERAL ANESTHESIA, REQUEST 1ST CASE, CARTO, RESEARCH CASE, PRE-ABLATION ROSIO NEEDED, RETRIEVE CTA, AMAYA, CONTRAST ANTICIPATED COMPREHENSIVE ELECTROPHYSIOLOGIC EVALUATION WITH CORONARY SINUS/ LEFT [facility]IUM INTRAVENOUS DRUG INFUSION FOR STIMULATION AND PACING INTRACARDIAC ELECTROPHYSIOLOGIC 3-DIMENSIONAL MAPPING Physical Assessment Vital Signs (last filed in past 24 hours): BP: 113/71 (01/01 1222) Temp: 36.5 C (97.7 F) (01/01 1222) Pulse: 57 (01/01 1222) Respirations: 16 PER MINUTE (01/01 122) SpO2: 98 % (01/01 122) O2 Delivery: None (Room Air) (01/01 122) Height: 160 cm (63") (01/01 122) Weight: 70.8 kg (156 lb) (01/01 122) Patient History Allergies Allergen Reactions Penicillin G UNKNOWN Sulfa (Sulfonamide Antibiotics) UNKNOWN Tetracycline UNKNOWN Current Medications Medication Directions alprazolam (XANAX) 1 mg PO tablet Take [...] capsule Take 400 Units by mouth daily. 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 Pulmonary - negative Not a current smoker Cardiovascular Recent diagnostic studies: echocardiogram ECG: reviewed from 11/24/17- SR with PACs Echo 05/2015 (care everywhere) Normal left ventricular systolic function. Mild mitral regurgitation (myxomatous). Mild left ventricular hypertrophy. Normal right ventricle. No evidence of pericardial disease. Exercise tolerance: >4 METS (walks, can vacuum 10 min without PALMER/CP) Beta Dylan therapy: Yes Beta blockers within 24 hours: Yes Hypertension, well controlled Valvular problems/murmurs (pt unaware of dx- echo from 2014 showed mild MR) : MR Coronary artery disease Dysrhythmias (atrial fibrillation s/p 4 cardioversion and ablation ; anticoagulation with Eliquis) Hyperlipidemia (taking statin) Loop recorder left anterior chest GI/Hepatic/Renal GERD (taking PPI), well controlled Electrolyte problem (hx of hypomagnesiemia - taking exogenous mg supplement) Neuro/Psych Neuromuscular disease (essential tremor) Dementia Psychiatric history Anxiety Musculoskeletal No back pain Arthritis (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 Abdominal Findings: Not obese Neurological Findings: Normal mental status Diagnostic Tests Hematology: No results found for: HGB, HCT, PLTCT, WBC, NEUT, ANC, LYMPH, ALC, ABSLYMPHCT, KULDIP, AMC, EOSA, ABC, BASOPHILS, MCV, MCH, MCHC, MPV, RDW General Chemistry: Lab Results Component Value Date NA 137 12/22/2017 K 4.0 12/22/2017 CL 100 12/22/2017 CO2 29.0 12/22/2017 BUN 24 12/22/2017 CR 1.0 12/22/2017 GLU 77 12/22/2017 CA 9.5 12/22/2017 Coagulation: No results found for: PT, PTT, INR Anesthesia Plan ASA score: 3 Plan: general Induction method: intravenous NPO status: acceptable Informed Consent Anesthetic plan and risks discussed with patient. Use of blood products discussed with patient; consented to blood products. Plan discussed with: anesthesiologist and ON SITE SERVICES SPECIALIST. Labs: bmp reviewed from 12/22/17; T&S Consults: none ADDIS: none in this encounter Plan of Treatment Date Type Specialty Care Team Description 03/25/2018 Procedure Pass Cardiology as of this encounter Visit Diagnoses Not on filein this encounter Administered Medications Medication Order MAR Action Action Date Dose Rate Site dexamethasone (DECADRON) injection Given 01/21/2018 4 mg Intravenous, INTRA-PROCEDURE MED, 08:02 MANAGEMENT TRAINEE Starting Fri01/21/18 at 0802, Until Fri01/21/18 at 1329, Nausea/Vomiting Injectable, Anesthesia Intra-op fentaNYL citrate PF (SUBLIMAZE) Given 01/21/2018 50 mcg injection 07:45 MANAGEMENT TRAINEE INTRA-PROCEDURE MED, Starting Fri01/21/18 at 0745, Until Fri01/21/18 at 1329, Pain Injectable, Anesthesia Intra-op Given 01/21/2018 50 mcg 07:47 MANAGEMENT TRAINEE haloperidol (HALDOL) injection Given 01/21/2018 1 mg INTRA-PROCEDURE MED, Starting Fri01/21/18 12:34 MANAGEMENT TRAINEE at 1234, Until Fri01/21/18 at 1329, Agitation Injectable, Anxiety Injectable, Anesthesia Intra-op lidocaine (PF) injection Given 01/21/2018 80 mg INTRA-PROCEDURE MED, Starting Fri01/21/18 07:48 MANAGEMENT TRAINEE at 0748, Until Fri01/21/18 at 1329, Anesthesia Intra-op phenylephrine (INDIRA-SYNEPHRINE) 10 mg in Dose/Rate 01/21/2018 0.7 72.2 mL /hr sodium chloride 0.9% (NS) 250 mL IV drip Change 11:35 MANAGEMENT TRAINEE mcg/kg/min (std conc) 250 mL, INTRA-PROCEDURE MED(CONT), Starting Fri01/21/18 at 0814, Until Fri01/21/18 at 1329, Anesthesia Intra-op Dose/Rate Change 01/21/2018 0.6 61.9 mL/hr 12:21 MANAGEMENT TRAINEE mcg/kg/min Dose/Rate Change 01/21/2018 0.3 31 mL/hr 12:37 MANAGEMENT TRAINEE mcg/kg/min phenylephrine in NS Injection Given 01/21/2018 100 mcg Intravenous, INTRA-PROCEDURE MED, 08:08 MANAGEMENT TRAINEE Starting Fri01/21/18 at 0808, Until Fri01/21/18 at 1329, Symptomatic Hypotension, Anesthesia Intra-op propofol (DIPRIVAN) injection Given 01/21/2018 30 mg INTRA-PROCEDURE MED, Starting Fri01/21/18 10:40 MANAGEMENT TRAINEE at 0749, Until Fri01/21/18 at 1329, Anesthesia Intra-op Given 01/21/2018 20 mg 10:41 MANAGEMENT TRAINEE Given 01/21/2018 50 mg 11:15 MANAGEMENT TRAINEE rocuronium (ZEMURON) injection Given 01/21/2018 50 mg Intravenous, INTRA-PROCEDURE MED, 07:50 MANAGEMENT TRAINEE Starting Fri01/21/18 at 0750, Until Fri01/21/18 at 1329, Anesthesia Intra-op sodium chloride 0.9 % infusion Given - New 01/21/2018 75 mL/hr 1,000 mL, Intravenous, at 75 mL/hr, Bag 06:56 MANAGEMENT TRAINEE CONTINUOUS, Starting Fri01/21/18 at 0615, Until Katlin 01/22/18 at 1424, -EF >35%: NS @ 75 mL/hr to be started the morning of the procedure (not to exceed 750 mL) -EF <35%: NS @ 20 mL/hr to be started the morning of procedure (not to exceed 500 mL) Given - New Bag 01/21/2018 07:32 MANAGEMENT TRAINEE sugammadex (BRIDION) injection Given 01/21/2018 130 mg Intravenous, INTRA-PROCEDURE MED, 13:02 MANAGEMENT TRAINEE Starting Fri01/21/18 at 1302, Until Fri01/21/18 at 1329, Anesthesia Intra-op in this encounter
--- OUTSIDE RECORDS SUMMARY | 2018-04-12 11:12 | XMS REPORT | Encounter Summary ---
Author Author [facility] Organization [facility] Address Unknown Phone Unavailable Care Team Providers Care Processing Supervisor Name Role Phone Silverio Walker MD Unavailable Sung Dunn MD PCP Reason for Visit * Reason Comments Patient Questions Encounter Details Date Type Department Care Team Description 01/19/[address] [facility] Cardiology Awa Jessica RN Patient Questions [address] [place], [place] [address] Social History Tobacco Use Types Packs/Day Years Used Date Never Smoker Smokeless Tobacco: Never Used Alcohol Use Drinks/Week oz/Week Comments Yes 1 Glasses of 0.6 wine Sex Assigned at Date Recorded Not on file as of this encounter Miscellaneous Notes * Telephone Encounter - Awa Jessica RN - 01/19/2018 12:28 PM STITCHING MACHINE FEEDER OR OFFBEARER Called patient back. She started holding Sotalol after Friday night for a fib ablation Since then HR has been increasing and is 80 bpm today. She is concerned that it will continue to increase until ablation 01/21/18. I told her that 80 bpm is not concerning and to call if HR trends up to 110s or higher or if she feels SOA or heart racing. She will do so. * Telephone Encounter - Awa Jessica RN - 01/19/2018 12:26 PM STITCHING MACHINE FEEDER OR OFFBEARER ----- Message from Yesy Tovar LPN sent at 01/19/2018 12:15 PM STITCHING MACHINE FEEDER OR OFFBEARER ----- Regarding: MPE- HR question VM from patient on triage line. She has heart rate question. Call back at home. in this encounter Plan of Treatment Date Type Specialty Care Team Description 03/25/2018 Procedure Pass Cardiology as of this encounter Visit Diagnoses Not on filein this encounter
--- OUTSIDE RECORDS SUMMARY | 2018-04-12 11:12 | XMS REPORT | Encounter Summary ---
Author Author [facility] Organization [facility] Address Unknown Phone Unavailable Care Team Providers Care Button Reclaimer Name Role Phone Silverio Walker MD Unavailable Sung Dunn MD PCP Encounter Details Date Type Department Care Team Description 01/14/2018 Telephone [facility] Cardiology Alethea Rader, DIANE [address] [facility] [address] [place] [address] Social History Tobacco Use Types Packs/Day Years Used Date Never Smoker Smokeless Tobacco: Never Used Alcohol Use Drinks/Week oz/Week Comments Yes 1 Glasses of 0.6 wine Sex Assigned at Date Recorded Not on file as of this encounter Miscellaneous Notes * Telephone Encounter - Alethea Rader RN - 01/14/2018 8:24 AM TRAY DRIER OPERATOR Mary called this am. she has had a sinus infection and cough. 01/13/18 started on levaquin 500 mg daily for one week. also taking prn cough medication reviewed medication instructions pre procedure scheduled 01/21/18 in this encounter Plan of Treatment Date Type Specialty Care Team Description 03/25/2018 Procedure Pass Cardiology as of this encounter Visit Diagnoses Not on filein this encounter
--- OUTSIDE RECORDS SUMMARY | 2018-04-12 11:13 | XMS REPORT | Continuity of care Document ---
Author Author [facility], SYSTEM Organization Unknown Address Unknown Phone Unavailable Purpose Hospital Course Allergies, Adverse Reactions, Alerts * Latex Allergy has not been assessed. * IV Contrast Allergy has not been assessed. Problems No relevant problems exist. Procedures No relevant procedures performed. Medication Medication reconciliation has not been performed. Results Body Fluids from 03/10/2014 3:54 PMFLUID APPEARANCE TURBID A (CLEAR ) FLUID COLOR YELLOW A (COLORLESS-PALE YELLOW ) FL TOTAL NUCLEATED CELLS 42926 X10e6/L (SEE RANGE BELOW X10e6/L) FL REF RANGE SEE BELOW *FLUID RBC 63287 x10e6/L (SEE RANGE BELOW x10e6/L) *SOURCE SYNOVIAL *SOURCE SYNOVIAL Chemistry from 03/10/2014 3:54 PMC-REACTIVE PROTEIN 11.08 MG/DL H (0.00-0.30 MG/ DL) Hematology from 03/10/2014 3:54 PMHEMATOCRIT 32.6 % (31.2-41.9 %) HEMOGLOBIN 10.7 G/DL L (11.0-14.3 G/DL) MCH 27.6 PG (27.0-33.0 PG) MCHC 32.8 G/DL (32.0-36.0 G/DL) MCV 84.3 FL (79.0-98.0 FL) MPV 8.4 FL (7.4-10.4 FL) PLATELET 278 X10e3/UL (159-386 X10e3/UL) RBC 3.86 X10e6/UL (3.63-4.92 X10e6/UL) RDW 14.4 % (12.3-17.0 %) WBC 5.8 X10e3/UL (3.6-11.2 X10e3/UL) ABSOLUTE BASOPHILS 0.0 X10e3/UL (0.0-0.2 X10e3/UL) AUTOMATED DIFF PERFORMED ABSOLUTE EOSINOPHILS 0.1 X10e3/UL (0.0-0.5 X10e3/UL) ABSOLUTE LYMPHOCYTES 1.1 X10e3/UL (1.0-3.0 X10e3/UL) ABSOLUTE MONOCYTES 0.5 X10e3/UL (0.3-1.0 X10e3/UL) ABSOLUTE NEUTROPHILS 4.1 X10e3/UL (1.8-7.8 X10e3/UL) BASOPHILS 0.3 % EOSINOPHILS 2.4 % LYMPHOCYTES 18.4 % MONOCYTES 8.9 % SEGS 70.0 % SED RATE 105 MM/HR H (0-30 MM/HR) Microbiology from 03/10/2014 3:54 PM* CULTURE WOUND (Preliminary Result) Specimen Number: [id number] Specimen Source: Sample Collection Date/Time: 03/10/2014 3:54 PM CULTURE WOUND: No Growth at 24 hrs * GRAM STAIN Specimen Number: [id number] Specimen Source: Sample Collection Date/Time: 03/10/2014 3:54 PM GRAM STAIN: Moderate WBC's Few RBC's No organisms seen 03/10/2014 19:15 Report Status: FINAL
[2018-04-12] MEDS ORDERED: NS IV 1000 ML 1,000 ML IV ONE (11:51)
[2018-04-12 12:00] LABS: BASOPHILS % (AUTO) 1 % (0-10); EOSINOPHILS # (AUTO) 0.1 10^3/uL (0.0-0.3); EOSINOPHILS % (AUTO) 1 % (0-10); HEMATOCRIT 38 % (35-52); HEMOGLOBIN 13.3 G/DL (11.5-16.0); LYMPHOCYTES # (AUTO) 1.8 X 10^3 (1.0-4.0); LYMPHOCYTES % (AUTO) 34 % (12-44); MEAN CORPUSCULAR HEMOGLOBIN 31 PG (25-34); MEAN CORPUSCULAR HGB CONC 35 G/DL (32-36); MEAN CORPUSCULAR VOLUME 89 FL (80-99); MEAN PLATELET VOLUME 10.5 FL (7.4-10.4); MONOCYTES # (AUTO) 0.5 X 10^3 (0.0-1.0); MONOCYTES % (AUTO) 8 % (0-12); NEUTROPHILS % (AUTO) 56 % (42-75); PLATELET COUNT 341 10^3/uL (130-400); RED BLOOD COUNT 4.28 10^6/uL (4.35-5.85); RED CELL DISTRIBUTION WIDTH 13.8 % (10.0-14.5); WHITE BLOOD COUNT 5.4 10^3/uL (4.3-11.0)
[2018-04-12 12:12] LABS: ALANINE AMINOTRANSFERASE 18 U/L (0-55); ALBUMIN 4.8 GM/DL (3.2-4.5); ALKALINE PHOSPHATASE 57 U/L (40-136); BILIRUBIN,TOTAL 0.4 MG/DL (0.1-1.0); BUN/CREATININE RATIO 24; CALCIUM 9.9 MG/DL (8.5-10.1); CARBON DIOXIDE 24 MMOL/L (21-32); CHLORIDE 105 MMOL/L (98-107); CREATININE SERUM 0.84 MG/DL (0.60-1.30); GFR ESTIMATED > 60; GLUCOSE 75 MG/DL (70-105); MAGNESIUM 2.2 MG/DL (1.8-2.4); POTASSIUM 4.1 MMOL/L (3.6-5.0); SODIUM 139 MMOL/L (135-145); TOTAL PROTEIN 8.3 GM/DL (6.4-8.2)
[2018-04-12 12:33] LABS: TSH (THYROID ANALYZER) 2.97 UIU/ML (0.35-4.94)
[2018-04-12] MEDS ORDERED: DILTIAZEM 120 MG (CARDIZEM CD) CAP PO ONE (12:45)
--- NOTE | 2018-04-12 12:54 | ED Cardiac General ---
History of Present Illness General Chief Complaint: Cardiac/General Problems Stated Complaint: HEART RATE UP TO 105,PT HAS A FIB, Nursing Triage Note: patient reports filling like her heart is fluttering since last night at 1930. patient reports SOA. patient reports history of A-fib Source: patient, old records Exam Limitations: no limitations History of Present Illness Date Seen by Provider: April 12, 2018 Time Seen by Provider: 11:30 Initial Comments This 72-year-old woman presents to the emergency room with complaints of tachycardia and palpitations that started around 19:30 last night and lasted until about 21:30. She felt dizzy and lightheaded especially with ambulation during this episode. She felt like symptoms resolved when she went to bed. She notes her heart rate during the episode was around 100, but her heart rate at baseline is usually around 60. She had a glass of red wine last night and is uncertain if that impacted her symptoms. Today she is again feeling palpitations and lightheadedness. She also has a headache. Patient has a history of atrial fibrillation and atrial flutter. She had an ablation in January of this year. She takes sotalol, enalapril, and Eliquis. She reports good compliance with her medications. Patient has a history of cardioversions 4. Allergies and Home Medications Allergies Coded Allergies: Sulfa (Sulfonamide Antibiotics) (Verified Allergy, Severe, HIVES, 11/14/17 ) amoxicillin (Verified Allergy, Unknown, hives, 11/09/16) clavulanic acid (Verified Allergy, Unknown, hives, 11/09/16) Home Medications Acetaminophen/Diphenhydramine 1 Each Tablet, 1 TAB PO HS, (Reported) Alprazolam 1 Mg Tablet, 1 MG PO BID, (Reported) Apixaban 5 Mg Tablet, 5 MG PO BID, (Reported) Biotin 5,000 Mcg Tab.rapdis, 5,000 MCG PO DAILY, (Reported) Buspirone HCl 10 Mg Tablet, 10 MG PO BID, (Reported) Diltiazem HCl 120 Mg Cap.er.24h, 120 MG PO DAILY Prescribed by: PATRIZIA FOSTER on 04/12/18 1255 Enalapril Maleate 20 Mg Tablet, 20 MG PO DAILY, (Reported) Fenofibrate,Micronized 200 Mg Capsule, 200 MG PO DAILY, (Reported) Fish Oil/Dha/Epa 1 Each Capsule, 1,200 MG PO BID, (Reported) Levocetirizine Dihydrochloride 5 Mg Tablet, 5 MG PO HS PRN for ALLERGIES, ( Reported) Magnesium Oxide 400 Mg Tablet, 400 MG PO DAILY, (Reported) Omeprazole 40 Mg Capsule.dr, 40 MG PO DAILY, (Reported) Raloxifene HCl 60 Mg Tablet, 60 MG PO DAILY, (Reported) Sertraline HCl 50 Mg Tablet, 50 MG PO DAILY, (Reported) Tramadol HCl 50 Mg Tablet, 25-50 MG PO Q6H PRN for PAIN-MODERATE, (Reported) Vitamin E Acetate 400 Unit Capsule, 400 UNIT PO DAILY, (Reported) [Sotalol Hcl] 120 TAB, 120 MG PO DAILY Prescribed by: Heron SINGH on 12/12/17 1258 [Sotalol Hcl] 80 MG TAB, 80 MG PO HS Prescribed by: Heron SINGH on 12/12/17 1258 Patient Home Medication List Home Medication List Reviewed: Yes Review of Systems Constitutional: no symptoms reported EENTM: No Symptoms Reported Respiratory: No Symptoms Reported Cardiovascular: See HPI Gastrointestinal: No Symptoms Reported Genitourinary: No Symptoms Reported Musculoskeletal: no symptoms reported Skin: no symptoms reported Psychiatric/Neurological: No Symptoms Reported Endocrine: No Symptoms Reported Hematologic/Lymphatic: No Symptoms Reported Past Fvplqvk-[id number]-Hikqrm Hx Patient Social History Alcohol Use: Occasionally Uses Number of Drinks Today: HH Alcohol Beverage of Choice: Wine Recreational Drug Use: No 2nd Hand Smoke Exposure: No Recent Foreign Travel: No Contact w/Someone Who Travel: No Recent Infectious Disease Expo: No Recent Hopitalizations: No Physical Abuse: No Sexual Abuse: No Immunizations Up To Date Tetanus Booster (TDap): Unknown PED Vaccines UTD: No Date of Pneumonia Vaccine: Sep 22, 2015 Date of Influenza Vaccine: Sep 01, 2017 Seasonal Allergies Seasonal Allergies: No Past Medical History Surgeries: Yes (BACK SURGERY 2008; BILAT TKR; CARDIAC ABLATION) Appendectomy, Cardiac, Orthopedic Respiratory: No Cardiac: Yes Atrial Fibrillation (A. fib and atrial flutter status post cardioversions and ablation), Hypertension Neurological: No : No Reproductive Disorders: No Sexually Transmitted Disease: No Genitourinary: No Gastrointestinal: Yes Gastroesophageal Reflux Musculoskeletal: Yes (BACK SURGERY 2008-MILD PAIN-6 SCREWS AND 2 RODS) Arthritis, Chronic Back Pain Endocrine: No HEENT: No Cancer: No Psychosocial: Yes Anxiety, Depression Nursing Suicide Risk Score: 0 Integumentary: No Blood Disorders: No Adverse Reaction/Blood Tranf: No Family Medical History Cardiovascular disease 19 FATHER (mi) Dementia 19 MOTHER Heart Disease Physical Exam Vital Signs Vital Signs - First Documented 04/12/18 11:08 Temp 98.7 Pulse 104 Resp 14 B/P (MAP) 148/117 (127) Pulse Ox 100 Capillary Refill : Less Than 3 Seconds General Appearance: No Apparent Distress, Anxious HEENT: PERRL/EOMI, Normal ENT Inspection Neck: Normal Inspection Respiratory: Lungs Clear, Normal Breath Sounds, No Accessory Muscle Use, No Respiratory Distress Cardiovascular: Regular Rate, Rhythm, No Edema, No Murmur Gastrointestinal: Normal Bowel Sounds, Soft Extremity: Normal Inspection, No Pedal Edema Neurologic/Psychiatric: Alert, Oriented x3, No Motor/Sensory Deficits, Normal Mood/Affect, clinical nurse II-XII Norm as Tested Skin: Normal Color, Warm/Dry Progress/Results/Core Measures Results/Orders Lab Results Laboratory Tests Test 04/12/18 11:10 Range/Units White Blood Count 5.4 4.3-11.0 10^3/uL Red Blood Count 4.28 L 4.35-5.85 10^6/uL Hemoglobin 13.3 11.5-16.0 G/DL Hematocrit 38 35-52 % Mean Corpuscular Volume 89 80-99 FL Mean Corpuscular Hemoglobin 31 25-34 PG Mean Corpuscular Hemoglobin Concent 35 32-36 G/DL Red Cell Distribution Width 13.8 10.0-14.5 % Platelet Count 341 130-400 10^3/uL Mean Platelet Volume 10.5 H 7.4-10.4 FL Neutrophils (%) (Auto) 56 42-75 % Lymphocytes (%) (Auto) 34 12-44 % Monocytes (%) (Auto) 8 0-12 % Eosinophils (%) (Auto) 1 0-10 % Basophils (%) (Auto) 1 0-10 % Neutrophils # (Auto) 3.0 1.8-7.8 X 10^3 Lymphocytes # (Auto) 1.8 1.0-4.0 X 10^3 Monocytes # (Auto) 0.5 0.0-1.0 X 10^3 Eosinophils # (Auto) 0.1 0.0-0.3 10^3/uL Basophils # (Auto) 0.0 0.0-0.1 10^3/uL Sodium Level 139 135-145 MMOL/L Potassium Level 4.1 3.6-5.0 MMOL/L Chloride Level 105 98-107 MMOL/L Carbon Dioxide Level 24 21-32 MMOL/L Anion Gap 10 5-14 MMOL/L Blood Urea Nitrogen 20 H 7-18 MG/DL Creatinine 0.84 0.60-1.30 MG/DL Estimat Glomerular Filtration Rate > 60 BUN/Creatinine Ratio 24 Glucose Level 75 70-105 MG/DL Calcium Level 9.9 8.5-10.1 MG/DL Magnesium Level 2.2 1.8-2.4 MG/DL Total Bilirubin 0.4 0.1-1.0 MG/DL Aspartate Amino Transf (AST/SGOT) 25 5-34 U/L Alanine Aminotransferase (ALT/SGPT) 18 0-55 U/L Alkaline Phosphatase 57 40-136 U/L Total Protein 8.3 H 6.4-8.2 GM/DL Albumin 4.8 H 3.2-4.5 GM/DL TSH [place] Testing 2.97 0.35-4.94 UIU/ML My Orders Orders - PATRIZIA TORRES MD Ekg Tracing (04/12/18 11:31) Ekg Tracing (04/12/18 11:32) Monitor-Rhythm Ecg Trace Only (04/12/18 11:32) Cbc With Automated Diff (04/12/18 11:50) Comprehensive Metabolic Panel (04/12/18 11:50) Magnesium (04/12/18 11:50) Thyroid Analyzer (04/12/18 11:50) Saline Lock/Iv-Start (04/12/18 11:50) Saline Lock/Iv-Start (04/12/18 11:51) Ns Iv 1000 Ml (Sodium Chloride 0.9%) (04/12/18 11:51) Diltiazem Cd 24 Hr Capsule (Cardizem Cd (04/12/18 12:45) Medications Given in ED Current Medications Medications Dose Ordered Sig/Rachel Route Start Time Stop Time Status Last Admin Dose Admin Diltiazem HCl 120 mg ONCE ONCE PO 04/12/18 12:45 04/12/18 12:46 DC 04/12/18 12:56 120 MG Sodium Chloride 1,000 ml @ 0 mls/hr Q0M ONCE IV 04/12/18 11:51 04/12/18 11:52 DC 04/12/18 12:33 0 MLS/HR Vital Signs/I&O 04/12/18 04/12/18 11:08 13:50 Temp 98.7 98.4 Pulse 104 112 Resp 14 9 B/P (MAP) 148/117 (127) 149/103 Pulse Ox 100 96 Blood Pressure Mean: 127 Progress Progress Note : Progress Note Workup is relatively unremarkable. Patient is feeling relatively well. She is receiving a liter of IV normal saline. Case was reviewed with Dr. Cameron who also reviewed the EKGs. The consensus is that the EKGs likely represent atrial tachycardia, probably atrial flutter. It seems her ablation has failed. Dr. Cameron recommends starting Cardizem CD 120 mg with her first dose now. He recommends watching her in the ER for one hour after administration of Cardizem CD. She should then follow up with Dr. Price on Friday. EKG #1: EKG Time: 11:09 Rate: 103 Comment Atrial tachycardia with no ST elevation or depression. EKG #2: EKG Time: 11:21 Rate: 102 Comment Probable atrial tachycardia/fibrillation. No acute ST elevation or depression. Departure Impression Primary Impression: Atrial tachycardia Disposition: 01 HOME, SELF-CARE Condition: Stable Departure-Patient Inst. Decision time for Depature: 12:51 Referrals: VALENCIA WILSON DO (PCP/Family) Primary Care Physician Patient Instructions: Atrial Flutter Add. Discharge Instructions: Continue with all of your previously prescribed medications. It is especially important that you continue Eliquis to reduce stroke risk. Start Cardizem CD as prescribed to help control heart rate. Drink plenty of clear liquids. Return to care if your symptoms are not controlled. Follow-up with Dr. Price on Friday. All discharge instructions reviewed with patient and/or family. Voiced understanding. Scripts Diltiazem HCl (Cardizem Cd) 120 Mg Cap.er.24h 120 MG PO DAILY, #30 CAP Prov: PATRIZIA TORRES MD 04/12/18 Copy Copies To 1: RENÉ PRICE MD, JOSHUA T MD April 12, 2018 12:54
[2018-04-12] MEDS ORDERED: DILT120C82 PO (12:55)
[2018-04-12 13:50] VITALS: BP 149/103
== END 2018-04-12 13:50 | disposition home or self-care (01) ==
LOC: EDUNIT# 11:03 → ER 11:05
DX: I47.1 Supraventricular tachycardia (principal); I10 Essential (primary) hypertension; F41.9 Anxiety disorder, unspecified; F32.9 Major depressive disorder, single episode, unspecified; K21.9 Gastro-esophageal reflux disease without esophagitis; I48.91 Unspecified atrial fibrillation; Z90.49 Acquired absence of other specified parts of digestive tract; Z98.890 Other specified postprocedural states; Z79.01 Long term (current) use of anticoagulants; Z88.8 Allergy status to other drugs, medicaments and biological substances; Z88.2 Allergy status to sulfonamides; Z88.1 Allergy status to other antibiotic agents; Z82.49 Family history of ischemic heart disease and other diseases of the circulatory system
CPT/HCPCS: 36415; 80053; 83735; 84443; 85025; 93005; 93041; 96360

== ENCOUNTER 2018-04-15 06:51 | Day surgery (SDC) | payer MEDICARE, OTHER ==
[2018-04-15] VITALS (15 sets, daily range): BP systolic 100–148; BP diastolic 73–96
[~2018-04-15] VITALS: Ht 160 cm; Wt 70.3 kg
[~2018-04-15 06:51] MED LIST changes: +DILT120C82 PO
[2018-04-15] MEDS ORDERED: NS IV 1000 ML 1,000 ML ONE (06:55)
[2018-04-15] MEDS ORDERED: NS IV 1000 ML 1,000 ML IV SCH (07:00)
[2018-04-15] MEDS ORDERED: SOTA120T PO (07:27)
[2018-04-15] MEDS ORDERED: SOTA80TA PO (07:27)
[2018-04-15] MEDS ORDERED: DILT120C82 PO (07:27)
[2018-04-15] MEDS ORDERED: MIDAZOLAM 2 MG/2 ML (VERSED) VIAL ONE (07:59)
[2018-04-15] MEDS ORDERED: proPOfol 200 MG/20 ML (DIPRIVAN) VIAL IV ONE (07:59)
--- NOTE | 2018-04-15 08:13 | Cardiac Procedure Note-CS/ASA ---
Pre-Procedure Note Pre-Op Procedure Note H&P Reviewed The H&P was reviewed, patient examined and no changes noted. Date H&P Reviewed: April 15, 2018 Time H&P Reviewed: 08:13 Conscious Sedation Pre-Proced Time Reviewed: 08:13 ASA Class: 3 Airway Mallampati Classification: ([place] appropriate class) I. II. III, IV Lungs Heart ASA score ASA 1: a normal healthy patient ASA 2: a patient with a mild systemic disease (mid diabetes, controlled hypertension, obesity x ASA 3: a patient with a severe systemic disease that limits activity (angina , COPD, prior Myocardial infarction) ASA 4: a patient with an incapacitating disease that is a constant threat to life (CHF, renal failure) ASA 5: a moribund patient not expected to survive 24 hrs. (ruptured aneurysm) ASA 6: a declared brain patient whose organs are being harvested. For emergent operations, add the letter E after the classification Grade 3 Sedation Plan: Analgesia, Amnesia, Plan communicated to team members, Discussed options with patient/fam, Discussed risks with patient/fam Note The patient is an appropriate candidate to undergo the planned procedure, sedation, and anesthesia. The patient immediately re-assessed prior to indication. RENÉ GR MD April 15, 2018 08:13
[2018-04-15 08:19] LABS: HEMOGLOBIN 11.5 G/DL (11.5-16.0); MEAN PLATELET VOLUME 10.5 FL (7.4-10.4); RED BLOOD COUNT 3.83 10^6/uL (4.35-5.85); RED CELL DISTRIBUTION WIDTH 13.8 % (10.0-14.5); WHITE BLOOD COUNT 5.1 10^3/uL (4.3-11.0)
[2018-04-15 08:42] LABS: ALANINE AMINOTRANSFERASE 15 U/L (0-55); ALBUMIN 4.4 GM/DL (3.2-4.5); ALKALINE PHOSPHATASE 49 U/L (40-136); BILIRUBIN,TOTAL 0.4 MG/DL (0.1-1.0); BUN/CREATININE RATIO 29; CALCIUM 9.6 MG/DL (8.5-10.1); CARBON DIOXIDE 23 MMOL/L (21-32); CHLORIDE 108 MMOL/L (98-107); CREATININE SERUM 0.85 MG/DL (0.60-1.30); GFR ESTIMATED > 60; GLUCOSE 84 MG/DL (70-105); POTASSIUM 3.8 MMOL/L (3.6-5.0); SODIUM 141 MMOL/L (135-145); TOTAL PROTEIN 7.6 GM/DL (6.4-8.2)
--- NOTE | 2018-04-15 08:50 | Cardioversion ---
Cardioversion PROCEDURE PHYSICIAN: René Price DATE OF PROCEDURE: 04/15/18 DIRECT EXTERNAL ELECTRICAL CARDIOVERSION: Indications: Atrial flutter with 2-1 conduction Preoperative diagnoses: Atrial flutter with 2-1 conduction Postoperative diagnosis: Sinus rhythm, Successful Electrical Cardioversion History: Anesthesia: By Anesthesia services Complications: None Specimen: None Contrast: 0 Flouroscopy: none Procedure Details: The patient was brought the micro lab analyst after informed consent was taken, all the risks and complications were explained including the risk of stroke. Electrical cardioversion was carried out with anesthesia support with propofol. 200 joules of synchronized shock was delivered through external patches which promptly restored sinus rhythm. The patient tolerated the procedure well. Conclusions: Successful electrical cardioversion in terminating atrial flutter Final Diagnosis: Paroxysmal atrial flutter Paroxysmal atrial fibrillation Palpitation Shortness of breath RENÉ PRICE MD April 15, 2018 08:50
[2018-04-15] MEDS ORDERED: LIDOCAINE 2% VISCOUS 15 ML UDC PO ONE (09:00)
--- NOTE | 2018-04-15 09:44 | Anesthesia-General Post-Op ---
MAC Patient Condition Mental Status/LOC: Same as Preop Cardiovascular: Satisfactory Nausea/Vomiting: Absent Respiratory: Satisfactory Pain: Controlled Complications: Absent Post Op Complications Complications None Follow Up Care/Instructions Patient Instructions None needed. Anesthesiology Discharge Order Discharge Order Patient is doing well, no complaints, stable vital signs, no apparent adverse anesthesia problems. No complications reported per nursing. ROSI ATKINS CRNA April 15, 2018 09:44
--- NOTE | 2018-04-15 09:44 | Anesthesia-Procedure Note ---
Procedures/Interventions Procedure Start/Stop/Diagnosis Date of Procedure: April 15, 2018 Start Time: 08:10 Referring Physician: Dee Preprocedural Diagnosis: Atrial Flutter Brief History Called to lab clerk for scheduled cardioversion for Dr. Price. NPO status verified, ASA 3. Monitors applied by lab clerk nurse. O2 per NC at 2 lpm. IV infusing R arm. Propofol boluses given for total of 80mg. Cardioversion completed successfully without anesthesia complications. Pt opening eyes and following commands and end of procedure. Report given to RN. VSS Stop Time: 08:25 Postprocedural Diagnosis: Atrial Flutter ROSI ATKINS CRNA April 15, 2018 09:44
== END 2018-04-15 11:35 | disposition home or self-care (01) ==
LOC: CATH 06:51 → SURG 09:05 → CATH 11:35
PROVIDERS: ATTEND Internal Medicine Cardiovascular Disease
DX: I48.92 Unspecified atrial flutter (principal); I48.0 Paroxysmal atrial fibrillation; R00.2 Palpitations; R06.02 Shortness of breath; I25.10 Atherosclerotic heart disease of native coronary artery without angina pectoris; R09.89 Other specified symptoms and signs involving the circulatory and respiratory systems; E78.2 Mixed hyperlipidemia; I10 Essential (primary) hypertension; K21.9 Gastro-esophageal reflux disease without esophagitis; E05.90 Thyrotoxicosis, unspecified without thyrotoxic crisis or storm; I65.23 Occlusion and stenosis of bilateral carotid arteries
CPT/HCPCS: 36415; 80053; 85027; 87081; 92960; 93005

== ENCOUNTER → 2018-06-04 | Outpatient (CLI) | payer MEDICARE, OTHER ==
[~2018-06-04] MED LIST changes: -AMIO200T2 PO; +AMIO200T4 PO; +BIOT1TAB PO; +CATHETER FLUSH 10 ML SYR IV PRN; +DILT120T11 PO; +IOHEXOL 350 MG/ML 100 ML (OMNIPAQUE 350) VIAL IV ONE; +LEVO5TAB28 PO; +NS 250 ML (IVPB) BAG IV ONE; +OMEG-90 PO; +POTA99TA21 PO; +SOTA120T PO
[2018-06-04 15:15] LABS: BUN/CREATININE RATIO 23; CREATININE SERUM 0.82 MG/DL (0.60-1.30); GFR ESTIMATED > 60
--- NOTE | 2018-06-04 15:59 | Diagnostic Imaging Report ---
PROCEDURE: CT neck soft tissue with contrast. TECHNIQUE: Multiple contiguous axial images were obtained through the neck after the administration of contrast. INDICATION: Swelling at the base of tongue. COMPARISON: None available. FINDINGS: The nasopharynx, oropharynx, and hypopharynx remain widely patent. Specifically, there is no focal mucosal thickening within the base of the tongue that is discernible. No abnormality of the larynx is seen. No cervical lymphadenopathy. Tiny 5 mm hypodense nodule in the inferior right thyroid lobe is likely of no clinical significance. Remainder of the thyroid is normal. Salivary glands are symmetric. Visualized maxillary and sphenoid sinuses are clear. Mastoid air cells are well aerated. Lung apices show biapical subpleural scarring. No concerning focal osseous lesion in the cervical spine. The carotid arteries are widely patent. Right vertebral artery is dominant. IMPRESSION: 1. No evidence of mucosal-based mass in the larynx or pharynx. Correlation with direct visualization is advised as there is persistent concern about swelling in the base of the tongue. 2. No cervical lymphadenopathy. Dictated by: Dictated on workstation # [id number]
== END ==
LOC: RAD 14:44
PROVIDERS: ATTEND Otolaryngology Otolaryngology/Facial Plastic Surgery
DX: K14.0 Glossitis (principal)
CPT/HCPCS: 36415; 70491; 82565; 84520

== ENCOUNTER 2018-06-10 21:36 | Emergency (ER) | payer MEDICARE, OTHER ==
[~2018-06-10] VITALS: Ht 160 cm; Wt 68.0 kg
[~2018-06-10 21:36] MED LIST changes: -BIOT1TAB PO; -CATHETER FLUSH 10 ML SYR IV PRN; -DILT120T11 PO; -IOHEXOL 350 MG/ML 100 ML (OMNIPAQUE 350) VIAL IV ONE; -LEVO5TAB28 PO; -NS 250 ML (IVPB) BAG IV ONE; -OMEG-90 PO; -POTA99TA21 PO
[2018-06-10] MEDS ORDERED: D5W 100 ML IVPB 100 ML IV ONE (21:49)
[2018-06-10] MEDS ORDERED: DILTIAZEM 25 MG/5 ML INJ (CARDIZEM) VIAL ONE (21:49)
[2018-06-10] MEDS ORDERED: DILTIAZEM (Omnicell drip kit) 5 X 25 MG VIALS ONE (21:50)
[2018-06-10] MEDS ORDERED: NS IV 1000 ML 1,000 ML ONE (21:56)
[2018-06-10 21:58] LABS: BASOPHILS % (AUTO) 0 % (0-10); EOSINOPHILS # (AUTO) 0.2 10^3/uL (0.0-0.3); EOSINOPHILS % (AUTO) 2 % (0-10); HEMATOCRIT 36 % (35-52); HEMOGLOBIN 12.2 G/DL (11.5-16.0); LYMPHOCYTES # (AUTO) 2.4 X 10^3 (1.0-4.0); LYMPHOCYTES % (AUTO) 31 % (12-44); MEAN CORPUSCULAR HEMOGLOBIN 30 PG (25-34); MEAN CORPUSCULAR HGB CONC 34 G/DL (32-36); MEAN CORPUSCULAR VOLUME 87 FL (80-99); MEAN PLATELET VOLUME 9.5 FL (7.4-10.4); MONOCYTES # (AUTO) 0.6 X 10^3 (0.0-1.0); MONOCYTES % (AUTO) 8 % (0-12); NEUTROPHILS # (AUTO) 4.4 X 10^3 (1.8-7.8); NEUTROPHILS % (AUTO) 59 % (42-75); PLATELET COUNT 400 10^3/uL (130-400); RED BLOOD COUNT 4.11 10^6/uL (4.35-5.85); RED CELL DISTRIBUTION WIDTH 13.2 % (10.0-14.5); WHITE BLOOD COUNT 7.6 10^3/uL (4.3-11.0)
[2018-06-10] MEDS ORDERED: ASPIRIN 81 MG CHEW (CHILDREN'S ASA) PO ONE (22:00)
--- NOTE | 2018-06-10 22:16 | ED Cardiac General ---
History of Present Illness General Chief Complaint: Cardiac/General Problems Stated Complaint: CP Nursing Triage Note: pt reports irregular racing heart beat/palpitations since 1629. Source: patient Exam Limitations: no limitations History of Present Illness Date Seen by Provider: Jun 10, 2018 Time Seen by Provider: 21:41 Initial Comments PT ARRIVES VIA POV FROM HOME C/O IRREGULAR HEART BEAT SINCE 1629 TODAY PT HAS HISTORY OF ATRIAL FIB/FLUTTER, AND TOOK A CARTIA XT 120 MG AT 1730 WITHOUT RELIEF--DOES NOT TAKE DAILY, ONLY PRN FOR THESE EPISODES. PT HAS HAD CARDIOVERSIONS X 4, CARDIAC ABLATION X 2--LAST ONE 01/[address] EDGAR IN [place] LAST EPISODE WAS OVER WEEKEND THIS YEAR. PT STATES SHE WAS PRESCRIBED CARDIZEM TO TAKE PRN FOR THESE SYMPTOMS, AT THAT TIME. PT IS ON BETAPACE FOR APPROXIMATELY A YEAR, AND IS ON ELIQUIS SYMPTOMS BEGAN WHILE SITTING. NO UNUSUAL OR STRENUOUS ACTIVITY NO CHEST PAIN HAS BEEN DIZZY ON STANDING SLIGHT SHORTNESS OF BREATH NO SWELLING IN LEGS/ FEET OR PAIN IN CALVES NO SWEATS DID HAVE NAUSEA AFTER EATING AT 8:00 PM TONIGHT PCP: DR. WILSON LINSEED OIL ORDER FILLER: DR. GR Allergies and Home Medications Allergies Coded Allergies: Sulfa (Sulfonamide Antibiotics) (Verified Allergy, Severe, HIVES, 11/14/17 ) amoxicillin (Verified Allergy, Unknown, hives, 11/09/16) clavulanic acid (Verified Allergy, Unknown, hives, 11/09/16) Home Medications Acetaminophen/Diphenhydramine 1 Each Tablet, 1 TAB PO HS, (Reported) Alprazolam 1 Mg Tablet, 1 MG PO BID, (Reported) Apixaban 5 Mg Tablet, 5 MG PO BID, (Reported) Biotin 5,000 Mcg Tab.rapdis, 5,000 MCG PO DAILY, (Reported) Buspirone HCl 10 Mg Tablet, 10 MG PO BID, (Reported) Enalapril Maleate 20 Mg Tablet, 20 MG PO DAILY, (Reported) Fenofibrate,Micronized 200 Mg Capsule, 200 MG PO DAILY, (Reported) Fish Oil/Dha/Epa 1 Each Capsule, 1,200 MG PO BID, (Reported) Levocetirizine Dihydrochloride 5 Mg Tablet, 5 MG PO HS PRN for ALLERGIES, ( Reported) Magnesium Oxide 400 Mg Tablet, 400 MG PO DAILY, (Reported) Omeprazole 40 Mg Capsule.dr, 40 MG PO DAILY, (Reported) Raloxifene HCl 60 Mg Tablet, 60 MG PO DAILY, (Reported) Sertraline HCl 50 Mg Tablet, 50 MG PO DAILY, (Reported) Sotalol HCl 120 Mg Tablet, 120 MG PO DAILY, (Reported) Sotalol HCl 80 Mg Tablet, 80 MG PO HS, (Reported) Tramadol HCl 50 Mg Tablet, 25-50 MG PO Q6H PRN for PAIN-MODERATE, (Reported) Vitamin E Acetate 400 Unit Capsule, 400 UNIT PO DAILY, (Reported) Patient Home Medication List Home Medication List Reviewed: Yes Review of Systems Constitutional: see HPI; No diaphoresis; dizziness EENTM: No Symptoms Reported Respiratory: See HPI, Shortness of Air Cardiovascular: See HPI; Denies Chest Pain, Denies Edema; Irregular Heart Rate , Lightheadedness, Palpitations; Denies Syncope Gastrointestinal: See HPI; Denies Abdominal Pain; Nausea; Denies Rectal Bleeding Genitourinary: No Symptoms Reported Musculoskeletal: no symptoms reported Skin: no symptoms reported Psychiatric/Neurological: No Symptoms Reported Endocrine: No Symptoms Reported Hematologic/Lymphatic: No Symptoms Reported Past Xagsmuy-Guqwlx-Ekzedk Hx Patient Social History Alcohol Use: Rarely Uses Number of Drinks Today: Alcohol Beverage of Choice: Wine Recreational Drug Use: No Smoking Status: Never a Smoker 2nd Hand Smoke Exposure: No Recent Foreign Travel: No Contact w/Someone Who Travel: No Recent Infectious Disease Expo: No Recent Hopitalizations: No Physical Abuse: No Sexual Abuse: No Mistreated: No Fear: No Immunizations Up To Date Tetanus Booster (TDap): Unknown PED Vaccines UTD: No Date of Pneumonia Vaccine: Sep 22, 2015 Date of Influenza Vaccine: Sep 01, 2017 Seasonal Allergies Seasonal Allergies: No Past Medical History Surgeries: Yes (BACK SURGERY 2008--RODS/SCREWS; BILAT TKR; CARDIAC CARDIOVERSIONS X 4;CARDIAC ABLATION x 2--LAST ONE 01/2018 [place] ; 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) Appendectomy, Cardiac, Joint Replacement, Orthopedic Respiratory: No Cardiac: Yes (IMPLANTED LINQ HEART MONITOR [id number]/16; CARDIOVERSIONS X 4; CARDIAC ABLATIONS X 2--LAST ONE 01/2018; ATRIAL FIB AND FLUTTER) Atrial Fibrillation, High Cholesterol, Hypertension Neurological: No Reproductive Disorders: No Sexually Transmitted Disease: No Genitourinary: No Gastrointestinal: Yes Gastroesophageal Reflux Musculoskeletal: Yes (BACK SURGERY 2009-MILD PAIN-6 SCREWS AND 2 RODS) Arthritis, Chronic Back Pain Endocrine: No HEENT: No Cancer: No Psychosocial: Yes Anxiety, Depression Nursing Suicide Risk Score: 0 Integumentary: No Blood Disorders: No Adverse Reaction/Blood Tranf: No Family Medical History Cardiovascular disease 19 FATHER (mi) Dementia 19 MOTHER Heart Disease Physical Exam Vital Signs Vital Signs - First Documented 06/10/18 06/11/18 22:01 00:05 Temp 97.4 Pulse 142 Resp 18 B/P (MAP) 124/93 (103) Pulse Ox 96 O2 Delivery Room Air Capillary Refill : Less Than 3 Seconds Height, Weight, BMI Height: 5'3.00" Weight: 150lbs. 0.0oz. 68.003975km; 27.5 BMI Method:Stated General Appearance: No Apparent Distress, WD/WN, Anxious Neck: Full Range of Motion, Normal Inspection, Non Tender, Supple; No Carotid Bruit, No JVD Respiratory: Normal Breath Sounds, No Accessory Muscle Use, No Respiratory Distress Cardiovascular: No Edema, No JVD, No Murmur, Normal Peripheral Pulses, Irregularly Irregular, Tachycardia Gastrointestinal: Normal Bowel Sounds, No Organomegaly, No Pulsatile Mass, Non Tender, Soft Extremity: Normal Capillary Refill, Normal Inspection, Normal Range of Motion, Non Tender, No Calf Tenderness, No Pedal Edema Neurologic/Psychiatric: Alert, Oriented x3, No Motor/Sensory Deficits, 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 II- 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 Norm as Tested Skin: Normal Color, Warm/Dry; No Diaphoresis Progress/Results/Core Measures Results/Orders Lab Results Laboratory Tests Test 06/10/18 21:50 Range/Units White Blood Count 7.6 4.3-11.0 10^3/uL Red Blood Count 4.11 L 4.35-5.85 10^6/uL Hemoglobin 12.2 11.5-16.0 G/DL Hematocrit 36 35-52 % Mean Corpuscular Volume 87 80-99 FL Mean Corpuscular Hemoglobin 30 25-34 PG Mean Corpuscular Hemoglobin Concent 34 32-36 G/DL Red Cell Distribution Width 13.2 10.0-14.5 % Platelet Count 400 130-400 10^3/uL Mean Platelet Volume 9.5 7.4-10.4 FL Neutrophils (%) (Auto) 59 42-75 % Lymphocytes (%) (Auto) 31 12-44 % Monocytes (%) (Auto) 8 0-12 % Eosinophils (%) (Auto) 2 0-10 % Basophils (%) (Auto) 0 0-10 % Neutrophils # (Auto) 4.4 1.8-7.8 X 10^3 Lymphocytes # (Auto) 2.4 1.0-4.0 X 10^3 Monocytes # (Auto) 0.6 0.0-1.0 X 10^3 Eosinophils # (Auto) 0.2 0.0-0.3 10^3/uL Basophils # (Auto) 0.0 0.0-0.1 10^3/uL Prothrombin Time 13.0 12.2-14.7 SEC INR Comment 1.0 0.8-1.4 Activated Partial Thromboplast Time 34 24-35 SEC Sodium Level 137 135-145 MMOL/L Potassium Level 3.4 L 3.6-5.0 MMOL/L Chloride Level 103 98-107 MMOL/L Carbon Dioxide Level 23 21-32 MMOL/L Anion Gap 11 5-14 MMOL/L Blood Urea Nitrogen 15 7-18 MG/DL Creatinine 0.85 0.60-1.30 MG/DL Estimat Glomerular Filtration Rate > 60 BUN/Creatinine Ratio 18 Glucose Level 133 H 70-105 MG/DL Calcium Level 10.1 8.5-10.1 MG/DL Magnesium Level 2.2 1.8-2.4 MG/DL Total Bilirubin 0.3 0.1-1.0 MG/DL Aspartate Amino Transf (AST/SGOT) 26 5-34 U/L Alanine Aminotransferase (ALT/SGPT) 15 0-55 U/L Alkaline Phosphatase 51 40-136 U/L Myoglobin 48.9 10.0-92.0 NG/ML Troponin I < 0.30 <0.30 NG/ML B-Type Natriuretic Peptide 210.3 H <100.0 PG/ML Total Protein 7.8 6.4-8.2 GM/DL Albumin 4.6 H 3.2-4.5 GM/DL Free Thyroxine 1.17 0.70-1.48 NG/DL TSH Darke Testing 6.04 H 0.35-4.94 UIU/ML My Orders Orders - UMBERTO,BAL K DO Diltiazem Injection (Cardizem Injection) (06/10/18 21:49) Cbc With Automated Diff (06/10/18 21:51) Magnesium (06/10/18 21:51) Chest 1 View, Ap/Pa Only (06/10/18 21:51) Ekg Tracing (06/10/18 21:51) Cardiac Profile 1 (06/10/18 21:51) Comprehensive Metabolic Panel (06/10/18 21:51) Myoglobin Serum (06/10/18 21:51) Protime With Inr (06/10/18 21:51) Partial Thromboplastin Time (06/10/18 21:51) O2 (06/10/18 21:51) Monitor-Rhythm Ecg Trace Only (06/10/18 21:51) Lipid Panel (06/11/18 06:00) Aspirin Chewable Tablet (Baby Aspirin Ch (06/10/18 22:00) Saline Lock/Iv-Start (06/10/18 21:51) BNP (06/10/18 21:51) Thyroid Analyzer (06/10/18 21:51) D5w 100 Ml Ivpb (Dextrose 5% Water Iv So (06/10/18 21:49) Diltiazem (Omnicell Drip Kit) (Cardizem (06/10/18 21:50) Ns Iv 1000 Ml (Sodium Chloride 0.9%) (06/10/18 21:56) Ekg Tracing (06/10/18 22:06) Ekg Tracing (06/10/18 22:06) Ekg Tracing (06/10/18 22:06) Free T4 (Free Thyroxine) (06/10/18 21:50) Medications Given in ED Current Medications Medications Dose Ordered Sig/Rachel Route Start Time Stop Time Status Last Admin Dose Admin Aspirin 324 mg ONCE ONCE PO 06/10/18 22:00 06/10/18 22:01 DC 06/10/18 22:04 324 MG Dextrose 100 ml @ ud STK-MED ONCE IV 06/10/18 21:49 06/10/18 21:52 DC 06/10/18 22:00 5 MLS/HR Diltiazem HCl 25 mg STK-MED ONCE .ROUTE 06/10/18 21:49 06/10/18 21:51 DC 06/10/18 21:54 10 MG Diltiazem HCl 125 mg STK-MED ONCE .ROUTE 06/10/18 21:50 06/10/18 21:53 DC 06/10/18 22:00 125 MG Sodium Chloride 1,000 ml @ ud STK-MED ONCE .ROUTE 06/10/18 21:56 06/10/18 21:59 DC 06/10/18 22:00 999 MLS/HR Vital Signs/I&O 06/10/18 06/11/18 22:01 00:05 Temp 97.4 97.4 Pulse 142 97 Resp 18 14 B/P (MAP) 124/93 (103) 129/88 (103) Pulse Ox 96 100 O2 Delivery Room Air 06/11/18 00:00 Intake Total 1020 ml Balance 1020 ml Blood Pressure Mean: 103 Progress Progress Note : Progress Note PT GIVEN CARDIZEM 10 MG AND PLACED ON CARDIZEM DRIP AT 5 MG/HR AND QUICKLY CONVERTED TO NSR, RATE IN 90'S NO DETERIORATION IN PT'S CONDITION DURING ER STAY PT STATES SHE FEELS MUCH BETTER. Initial ECG Impression Date: Jun 10, 2018 Initial ECG Impression Time: 21:46 Initial ECG Rate: 169 Initial ECG Rhythm: A Fib/Flutter Initial ECG Impression: Nonspecific Changes EKG : EKG Time: 21:55 Rate: 96 Rhythm: A Fib/Flutter Comment EKG # 3--AT 2200--RATE 98, NSR, NO ACUTE CHANGES EKG # 4--AT 2204--RATE 96, NSR, NO ACUTE CHANGES Diagnostic Imaging Comments CXR--NO ACUTE PROCESS, PENDING RADIOLOGIST REVIEW Reviewed: Reviewed by Me Departure Communication (Admissions) 0670--SPOKE WITH DR. 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 ADVISES TO SEND PT HOME AND FOLLOW UP WITH DR. GR IN OFFICE SOON POSSIBLE. PT IS COMFORTABLE WITH THIS PLAN, AND STATES SHE WILL CALL DR. GR'S OFFICE IN THE MORNING TO SCHEDULE FOLLOW UP APPOINTMENT. Impression Primary Impression: Atrial fibrillation with RVR Additional Impression: CONVERTED WITH CARDIZEM Disposition: 01 HOME, SELF-CARE Condition: Improved Departure-Patient Inst. Referrals: RENÉ GR MD, WILLIAM J DO (PCP/Family) Primary Care Physician Patient Instructions: Atrial Fibrillation (DC) Add. Discharge Instructions: CONTINUE YOUR REGULAR MEDICATIONS PRESCRIBED FOLLOW UP WITH DR. GR SOON POSSIBLE--CALL IN AM FOR APPOINTMENT RETURN TO ER IF SYMPTOMS WORSEN All discharge instructions reviewed with patient and/or family. Voiced understanding. BAL SHIPMAN DO Jun 10, 2018 22:15
[2018-06-10 22:20] LABS: ALANINE AMINOTRANSFERASE 15 U/L (0-55); ALBUMIN 4.6 GM/DL (3.2-4.5); ALKALINE PHOSPHATASE 51 U/L (40-136); BILIRUBIN,TOTAL 0.3 MG/DL (0.1-1.0); BUN/CREATININE RATIO 18; CALCIUM 10.1 MG/DL (8.5-10.1); CARBON DIOXIDE 23 MMOL/L (21-32); CREATININE SERUM 0.85 MG/DL (0.60-1.30); GFR ESTIMATED > 60; GLUCOSE 133 MG/DL (70-105); MAGNESIUM 2.2 MG/DL (1.8-2.4); TOTAL PROTEIN 7.8 GM/DL (6.4-8.2)
[2018-06-10 22:27] LABS: MYOGLOBIN SERUM 48.9 NG/ML (10.0-92.0)
[2018-06-10 22:40] LABS: TSH (THYROID ANALYZER) 6.04 UIU/ML (0.35-4.94)
[2018-06-10 22:47] LABS: CHLORIDE 103 MMOL/L (98-107); POTASSIUM 3.4 MMOL/L (3.6-5.0); SODIUM 137 MMOL/L (135-145)
[2018-06-10 23:20] LABS: FREE T4 (FREE THYROXINE) 1.17 NG/DL (0.70-1.48)
[2018-06-11 00:05] VITALS: BP 129/88
--- NOTE | 2018-06-11 06:01 | Diagnostic Imaging Report ---
INDICATION: Chest pain. COMPARISON: 12/08/2017 FINDINGS: Single frontal view of the chest demonstrates mild cardiomegaly. Pulmonary vasculature, however is within normal limits. The lungs are well aerated and clear. No large pleural effusion or pneumothorax is seen. The visualized osseous structures show no acute abnormalities. IMPRESSION: 1. Mild cardiomegaly, but no evidence of failure or focal infiltrate. Dictated by: Dictated on workstation # [id number]
== END 2018-06-11 00:05 | disposition home or self-care (01) ==
LOC: ER 21:36
DX: I48.91 Unspecified atrial fibrillation (principal); E78.00 Pure hypercholesterolemia, unspecified; I10 Essential (primary) hypertension; K21.9 Gastro-esophageal reflux disease without esophagitis; F41.9 Anxiety disorder, unspecified; F32.9 Major depressive disorder, single episode, unspecified; Z88.2 Allergy status to sulfonamides; Z88.1 Allergy status to other antibiotic agents; Z82.49 Family history of ischemic heart disease and other diseases of the circulatory system; Z88.8 Allergy status to other drugs, medicaments and biological substances; Z79.01 Long term (current) use of anticoagulants; Z96.653 Presence of artificial knee joint, bilateral; Z90.89 Acquired absence of other organs; Z79.899 Other long term (current) drug therapy
CPT/HCPCS: 36415; 71045; 80053; 83735; 83874; 83880; 84439; 84443; 84484; 85025; 85610; 85730; 93005; 93041; 96361; 96365; 96366

== ENCOUNTER 2018-06-21 15:05 | Inpatient (IN) | payer MEDICARE, OTHER ==
[~2018-06-21] VITALS: Ht 160 cm; Wt 70.1 kg
[2018-06-21] VITALS (15 sets, daily range): BP systolic 96–135; BP diastolic 67–102
[2018-06-21 15:38] LABS: BASOPHILS % (AUTO) 1 % (0-10); EOSINOPHILS # (AUTO) 0.1 10^3/uL (0.0-0.3); EOSINOPHILS % (AUTO) 2 % (0-10); HEMATOCRIT 33 % (35-52); HEMOGLOBIN 11.1 G/DL (11.5-16.0); LYMPHOCYTES # (AUTO) 1.5 X 10^3 (1.0-4.0); LYMPHOCYTES % (AUTO) 26 % (12-44); MEAN CORPUSCULAR HEMOGLOBIN 30 PG (25-34); MEAN CORPUSCULAR HGB CONC 34 G/DL (32-36); MEAN CORPUSCULAR VOLUME 88 FL (80-99); MEAN PLATELET VOLUME 9.6 FL (7.4-10.4); MONOCYTES # (AUTO) 0.5 X 10^3 (0.0-1.0); MONOCYTES % (AUTO) 8 % (0-12); NEUTROPHILS # (AUTO) 3.8 X 10^3 (1.8-7.8); NEUTROPHILS % (AUTO) 64 % (42-75); PLATELET COUNT 389 10^3/uL (130-400); RED BLOOD COUNT 3.71 10^6/uL (4.35-5.85); RED CELL DISTRIBUTION WIDTH 13.1 % (10.0-14.5); WHITE BLOOD COUNT 5.9 10^3/uL (4.3-11.0)
[2018-06-21] MEDS ORDERED: NS IV 1000 ML 1,000 ML IV SCH (15:45)
[2018-06-21 15:49] LABS: INR 1.2 (0.8-1.4); PROTHROMBIN TIME PATIENT 15.5 SEC (12.2-14.7)
--- NOTE | 2018-06-21 15:49 | ED Cardiac General ---
History of Present Illness General Chief Complaint: Cardiac/General Problems Stated Complaint: LOW BP Source: patient Exam Limitations: no limitations History of Present Illness Date Seen by Provider: Jun 21, 2018 Time Seen by Provider: 15:30 Initial Comments Patient is a 73-year-old female who presents to the emergency room with complaints of low blood pressure. She reports that today is her first day of taking amlodipine and she's presents to take it 3 times a day but her pressures have been in the 80s and 90s systolic and she is afraid to take her last dose. During triage her heart rate was found to be in the 130s. She states that she does have history of A. fib and takes Cardizem. She denies pain, shortness of breath, dizziness. Timing/Duration: 1 day Associated Systoms: Denies Symptoms Allergies and Home Medications Allergies Coded Allergies: Sulfa (Sulfonamide Antibiotics) (Verified Allergy, Severe, HIVES, 11/14/17 ) Tetracyclines (Verified Allergy, Unknown, HIVES, 06/21/18) amoxicillin (Verified Allergy, Unknown, hives, 11/09/16) clavulanic acid (Verified Allergy, Unknown, hives, 11/09/16) penicillin G (Verified Allergy, Unknown, HIVES, 06/21/18) Home Medications Acetaminophen/Diphenhydramine 1 Each Tablet, 1 TAB PO HS, (Reported) Alprazolam 1 Mg Tablet, 1 MG PO BID, (Reported) Apixaban 5 Mg Tablet, 5 MG PO BID, (Reported) Biotin 5,000 Mcg Tab.rapdis, 5,000 MCG PO DAILY, (Reported) Buspirone HCl 10 Mg Tablet, 10 MG PO BID, (Reported) Enalapril Maleate 20 Mg Tablet, 20 MG PO DAILY, (Reported) Fenofibrate,Micronized 200 Mg Capsule, 200 MG PO DAILY, (Reported) Levocetirizine Dihydrochloride 5 Mg Tablet, 5 MG PO HS PRN for ALLERGIES, ( Reported) Magnesium Oxide 400 Mg Tablet, 400 MG PO DAILY, (Reported) Rover-3S/Dha/Epa/Fish Oil 1 Each Capsule.dr, 1 EACH PO BID, (Reported) Omeprazole 40 Mg Capsule.dr, 40 MG PO DAILY, (Reported) Potassium Gluconate 99 Mg Tablet, 99 MG PO DAILY, (Reported) Pravastatin Sodium 40 Mg Tablet, 40 MG PO DAILY, (Reported) Raloxifene HCl 60 Mg Tablet, 60 MG PO DAILY, (Reported) Sertraline HCl 50 Mg Tablet, 50 MG PO DAILY, (Reported) Vitamin E Acetate 400 Unit Capsule, 400 UNIT PO DAILY, (Reported) Patient Home Medication List Home Medication List Reviewed: Yes Review of Systems Constitutional: see HPI; No chills, No fever Cardiovascular: See HPI, Irregular Heart Rate, Other (hypotension) All Other Systems Reviewed Negative Unless Noted: Yes Past Yazlwol-Pathcg-Txgnwr Hx Past Med/Social Hx: Reviewed Nursing Past Med/Soc Hx Patient Social History Alcohol Beverage of Choice: Wine 2nd Hand Smoke Exposure: No Recent Foreign Travel: No Contact w/Someone Who Travel: No Recent Hopitalizations: No Immunizations Up To Date Tetanus Booster (TDap): Unknown PED Vaccines UTD: No Date of Pneumonia Vaccine: Sep 22, 2015 Date of Influenza Vaccine: Sep 01, 2017 Seasonal Allergies Seasonal Allergies: No Past Medical History Surgeries: Yes Appendectomy, Cardiac, Joint Replacement, Orthopedic Respiratory: No Cardiac: Yes Atrial Fibrillation, High Cholesterol, Hypertension Neurological: No Reproductive Disorders: No Sexually Transmitted Disease: No Genitourinary: No Gastrointestinal: Yes Gastroesophageal Reflux Musculoskeletal: Yes (BACK SURGERY 2008-MILD PAIN-6 SCREWS AND 2 RODS) Arthritis, Chronic Back Pain Endocrine: No HEENT: No Cancer: No Psychosocial: Yes Anxiety, Depression Integumentary: No Blood Disorders: No Adverse Reaction/Blood Tranf: No Family Medical History Reviewed Nursing Family Hx Cardiovascular disease 19 FATHER (mi) Dementia 19 MOTHER Heart Disease Physical Exam Vital Signs Vital Signs - First Documented 06/21/18 15:11 Temp 97.5 Pulse 127 Resp 14 B/P (MAP) 106/89 (95) Pulse Ox 95 O2 Delivery Room Air Capillary Refill : Height, Weight, BMI Height: 5'3.00" Weight: 150lbs. 0.0oz. 68.325553jv; 27.5 BMI Method:Stated General Appearance: No Apparent Distress, WD/WN Respiratory: Chest Non Tender, Lungs Clear, Normal Breath Sounds, No Accessory Muscle Use, No Respiratory Distress Cardiovascular: No Edema, No Gallop, No JVD, No Murmur, Normal Peripheral Pulses, Tachycardia Neurologic/Psychiatric: Alert, Oriented x3, Normal Mood/Affect Skin: Normal Color, Warm/Dry Progress/Results/Core Measures Results/Orders Lab Results Laboratory Tests Test 06/21/18 15:30 Range/Units White Blood Count 5.9 4.3-11.0 10^3/uL Red Blood Count 3.71 L 4.35-5.85 10^6/uL Hemoglobin 11.1 L 11.5-16.0 G/DL Hematocrit 33 L 35-52 % Mean Corpuscular Volume 88 80-99 FL Mean Corpuscular Hemoglobin 30 25-34 PG Mean Corpuscular Hemoglobin Concent 34 32-36 G/DL Red Cell Distribution Width 13.1 10.0-14.5 % Platelet Count 389 130-400 10^3/uL Mean Platelet Volume 9.6 7.4-10.4 FL Neutrophils (%) (Auto) 64 42-75 % Lymphocytes (%) (Auto) 26 12-44 % Monocytes (%) (Auto) 8 0-12 % Eosinophils (%) (Auto) 2 0-10 % Basophils (%) (Auto) 1 0-10 % Neutrophils # (Auto) 3.8 1.8-7.8 X 10^3 Lymphocytes # (Auto) 1.5 1.0-4.0 X 10^3 Monocytes # (Auto) 0.5 0.0-1.0 X 10^3 Eosinophils # (Auto) 0.1 0.0-0.3 10^3/uL Basophils # (Auto) 0.0 0.0-0.1 10^3/uL Prothrombin Time 15.5 H 12.2-14.7 SEC INR Comment 1.2 0.8-1.4 Activated Partial Thromboplast Time 37 H 24-35 SEC Sodium Level 130 L 135-145 MMOL/L Potassium Level 3.9 3.6-5.0 MMOL/L Chloride Level 98 98-107 MMOL/L Carbon Dioxide Level 22 21-32 MMOL/L Anion Gap 10 5-14 MMOL/L Blood Urea Nitrogen 19 H 7-18 MG/DL Creatinine 0.95 0.60-1.30 MG/DL Estimat Glomerular Filtration Rate 58 BUN/Creatinine Ratio 20 Glucose Level 108 H 70-105 MG/DL Calcium Level 9.6 8.5-10.1 MG/DL Magnesium Level 2.1 1.8-2.4 MG/DL Total Bilirubin 0.4 0.1-1.0 MG/DL Aspartate Amino Transf (AST/SGOT) 22 5-34 U/L Alanine Aminotransferase (ALT/SGPT) 14 0-55 U/L Alkaline Phosphatase 54 40-136 U/L Myoglobin 29.7 10.0-92.0 NG/ML Troponin I < 0.30 <0.30 NG/ML Total Protein 7.7 6.4-8.2 GM/DL Albumin 4.5 3.2-4.5 GM/DL My Orders Orders - ABHINAV MENSAH Cbc With Automated Diff (06/21/18 15:29) Magnesium (06/21/18:) Chest 1 View, Ap/Pa Only (06/21/18:29) Ekg Tracing (06/21/18 15:29) Cardiac Profile 1 (06/21/18:) Comprehensive Metabolic Panel (06/21/18) Myoglobin Serum (06/21/18 15:29) Protime With Inr (06/21/18:) Partial Thromboplastin Time (06/21/18:29) O2 (06/21/18:) Monitor-Rhythm Ecg Trace Only (06/21/18 15:29) Saline Lock/Iv-Start (06/21/18 15:29) Vital Signs/I&O 06/21/18 15:11 Temp 97.5 Pulse 127 Resp 14 B/P (MAP) 106/89 (95) Pulse Ox 95 O2 Delivery Room Air Progress Progress Note : Time: 15:35 Progress Note Spoke to Dr. Price at this time in regards to the patient's findings on EKG. He reports that the patient has had a history of atrial fibrillation and recommends admission with IV fluids NS started 150 mg an hour and he will see the on patient arrival to the floor. He does not recommend giving any antiarrhythmics at this time. EKG : EKG Time: 15:29 Rate: 126 Rhythm: A Fib/Flutter Comment Junctional rhythm absent p wave. I believe this to be atrial fibrillation. 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 The lungs are clear. There is no effusion or pneumothorax. There is no bony abnormality. IMPRESSION: Mild cardiomegaly. The chest is similar to a prior study from 06/10/2018. Dictated by: Dictated on workstation # [id number] Dict: 06/21/18 1546 Trans: 06/21/18 1556 Interpreted by: VAL ALBERT MD Electronically signed by: VAL ALBERT MD 06/21/18 1556 Reviewed: Reviewed by Me Departure Impression Primary Impression: Atrial fib/flutter, transient Disposition: ADMITTED INPATIENT Condition: Stable/Unchanged Admissions Decision to Admit Reason: Admit from ER (General) Decision to Admit/Date: Jun 21, 2018 Time/Decision to Admit Time: 15:35 Departure-Patient Inst. Referrals: VALENCIA WILSON DO (PCP/Family) Primary Care Physician ABHINAV MENSAH Jun 21, 2018 15:49
[2018-06-21 16:15] LABS: ALANINE AMINOTRANSFERASE 14 U/L (0-55); ALBUMIN 4.5 GM/DL (3.2-4.5); ALKALINE PHOSPHATASE 54 U/L (40-136); BILIRUBIN,TOTAL 0.4 MG/DL (0.1-1.0); BUN/CREATININE RATIO 20; CALCIUM 9.6 MG/DL (8.5-10.1); CARBON DIOXIDE 22 MMOL/L (21-32); CHLORIDE 98 MMOL/L (98-107); CREATININE SERUM 0.95 MG/DL (0.60-1.30); GFR ESTIMATED 58; GLUCOSE 108 MG/DL (70-105); MAGNESIUM 2.1 MG/DL (1.8-2.4); POTASSIUM 3.9 MMOL/L (3.6-5.0); SODIUM 130 MMOL/L (135-145); TOTAL PROTEIN 7.7 GM/DL (6.4-8.2)
[2018-06-21 16:21] LABS: MYOGLOBIN SERUM 29.7 NG/ML (10.0-92.0)
[2018-06-21] MEDS ORDERED: DILTIAZEM 25 MG/5 ML INJ (CARDIZEM) VIAL IVP NR (16:45)
[2018-06-21] MEDS ORDERED: CATHETER FLUSH 10 ML SYR IV PRN (17:00)
[2018-06-21] MEDS ORDERED: BIOT1TAB PO (17:06)
[2018-06-21] MEDS ORDERED: OMEG-90 PO (17:06)
[2018-06-21] MEDS ORDERED: ENAL2.5T PO (17:06)
[2018-06-21] MEDS ORDERED: PRAV40TA PO (17:06)
[2018-06-21] MEDS ORDERED: AMIO200T4 PO (17:12)
[2018-06-21] MEDS ORDERED: DILT120T11 PO (17:12)
[2018-06-21] MEDS: DILTIAZEM INJECTION 125 MG in D5W 100 ML IVPB 100 ML IV SCH (17:13)
[2018-06-21] MEDS ORDERED: ENAL20TA PO (17:28)
[2018-06-21] MEDS ORDERED: BIOT5000 PO (17:40)
[2018-06-21] MEDS ORDERED: LEVO5TAB28 PO (17:40)
[2018-06-21] MEDS ORDERED: POTA99TA21 PO (17:40)
[2018-06-21] MEDS: NS IV 1000 ML 1,000 ML IV SCH ×2 (19:41→22:41)
[2018-06-21] MEDS: APIXABAN 5 MG (ELIQUIS) TABLET PO SCH (21:12)
[2018-06-21] MEDS ORDERED: AMIODARONE 450 MG/9 ML (CORDARONE) VIAL IV ONE (21:39)
[2018-06-21] MEDS ORDERED: D5W IV SOLUTION (EXCEL) 250 ML IV ONE (21:39)
--- NOTE | 2018-06-21 21:39 | Consultation-Cardiology ---
HPI-Cardiology Cardiology Consultation Date of Consultation 06/21/18 Date of Admission Time Seen by Provider: 21:33 Indication: Tachycardia and hypotension HPI 73 years old lady with extensive history of atrial fibrillation and flutter, underwent multiple ablation procedure, was resistant to multiple medications. She was started on amiodarone in addition to the Cardizem, noted that she felt lightheaded, continue to be tachycardic but borderline hypotensive. Came into the emergency room complaining of lightheadedness and palpitation with tachycardia with a heart rate 120-130. Patient was started on Cardizem drip without improvement in her heart rate. She is still tachycardic at this time. Denied active chest pain. Denied any syncope or near syncopal episodes. Denied any claudication. I reviewed the record and her latest visit with Dr. Coulter,and considering proceeding with electrical cardioversion if patient did not convert to sinus rhythm, we might need to use temporary pacemaker if needed. Home Medications & Allergies Allergies: Coded Allergies: Sulfa (Sulfonamide Antibiotics) (Verified Allergy, Severe, HIVES, 11/14/17 ) Tetracyclines (Verified Allergy, Unknown, HIVES, 06/21/18) amoxicillin (Verified Allergy, Unknown, hives, 11/09/16) clavulanic acid (Verified Allergy, Unknown, hives, 11/09/16) penicillin G (Verified Allergy, Unknown, HIVES, 06/21/18) Home Medication List Reviewed: Yes [id number] Hx Patient Social History Alcohol Use: Denies Use Recreational Drug Use: No Smoking Status: Never a Smoker 2nd Hand Smoke Exposure: No Recent Foreign Travel: No Recent Infectious Disease Expo: No Recent Hopitalizations: No Physical Abuse Screen: No Sexual Abuse: No Immunizations Up To Date Tetanus Booster (TDap): Unknown Date of Pneumonia Vaccine: Sep 22, 2015 Date of Influenza Vaccine: Sep 01, 2017 Past Medical History Past medical history as discussed below Family Medical History Significant Family History: Heart Disease Family History: Cardiovascular disease 19 FATHER (mi) Dementia 19 MOTHER Constitutional: see HPI, dizziness, malaise, weakness EENTM: see HPI, no symptoms reported Respiratory: no symptoms reported, see HPI Cardiovascular: see HPI; No chest pain, No edema, No Hx of Intervention; palpitations; No syncope, No vascular heart diseas; other (Dizziness) Gastrointestinal: no symptoms reported, see HPI Genitourinary: no symptoms reported, see HPI Musculoskeletal: no symptoms reported, see HPI Skin: no symptoms reported, see HPI Psychiatric/Neurological: No Symptoms Reported, See HPI Reviewed Test Results Reviewed Test Results Lab Laboratory Tests Test 06/21/18 15:30 Range/Units White Blood Count 5.9 4.3-11.0 10^3/uL Red Blood Count 3.71 L 4.35-5.85 10^6/uL Hemoglobin 11.1 L 11.5-16.0 G/DL Hematocrit 33 L 35-52 % Mean Corpuscular Volume 88 80-99 FL Mean Corpuscular Hemoglobin 30 25-34 PG Mean Corpuscular Hemoglobin Concent 34 32-36 G/DL Red Cell Distribution Width 13.1 10.0-14.5 % Platelet Count 389 130-400 10^3/uL Mean Platelet Volume 9.6 7.4-10.4 FL Neutrophils (%) (Auto) 64 42-75 % Lymphocytes (%) (Auto) 26 12-44 % Monocytes (%) (Auto) 8 0-12 % Eosinophils (%) (Auto) 2 0-10 % Basophils (%) (Auto) 1 0-10 % Neutrophils # (Auto) 3.8 1.8-7.8 X 10^3 Lymphocytes # (Auto) 1.5 1.0-4.0 X 10^3 Monocytes # (Auto) 0.5 0.0-1.0 X 10^3 Eosinophils # (Auto) 0.1 0.0-0.3 10^3/uL Basophils # (Auto) 0.0 0.0-0.1 10^3/uL Prothrombin Time 15.5 H 12.2-14.7 SEC INR Comment 1.2 0.8-1.4 Activated Partial Thromboplast Time 37 H 24-35 SEC Sodium Level 130 L 135-145 MMOL/L Potassium Level 3.9 3.6-5.0 MMOL/L Chloride Level 98 98-107 MMOL/L Carbon Dioxide Level 22 21-32 MMOL/L Anion Gap 10 5-14 MMOL/L Blood Urea Nitrogen 19 H 7-18 MG/DL Creatinine 0.95 0.60-1.30 MG/DL Estimat Glomerular Filtration Rate 58 BUN/Creatinine Ratio 20 Glucose Level 108 H 70-105 MG/DL Calcium Level 9.6 8.5-10.1 MG/DL Magnesium Level 2.1 1.8-2.4 MG/DL Total Bilirubin 0.4 0.1-1.0 MG/DL Aspartate Amino Transf (AST/SGOT) 22 5-34 U/L Alanine Aminotransferase (ALT/SGPT) 14 0-55 U/L Alkaline Phosphatase 54 40-136 U/L Myoglobin 29.7 10.0-92.0 NG/ML Troponin I < 0.30 <0.30 NG/ML Total Protein 7.7 6.4-8.2 GM/DL Albumin 4.5 3.2-4.5 GM/DL Physical Exam Vital Signs Vital Signs - First Documented 06/21/18 06/21/18 15:11 16:56 Temp 97.5 Pulse 127 Resp 14 B/P (MAP) 106/89 (95) Pulse Ox 95 O2 Delivery Room Air FiO2 21 Capillary Refill : Less Than 3 Seconds Height, Weight, BMI Height: 5'3.00" Weight: 161lbs. 9.0oz. [id number]; 28.6 BMI Method:Stated General Appearance: No Apparent Distress, WD/WN Eyes: Bilateral Eye Normal Inspection, Bilateral Eye PERRL, Bilateral Eye EOMI HEENT: PERRL/EOMI, TMs Normal, Normal ENT Inspection, Pharynx Normal Neck: Full Range of Motion, Normal Inspection, Non Tender, Supple, Carotid Bruit Respiratory: Chest Non Tender, Lungs Clear, Normal Breath Sounds, No Accessory Muscle Use, No Respiratory Distress Cardiovascular: No Edema, No Gallop, No JVD, No Murmur, Normal Peripheral Pulses, Tachycardia Gastrointestinal: Normal Bowel Sounds, No Organomegaly, No Pulsatile Mass, Non Tender, Soft Back: Normal Inspection, No CVA Tenderness, No Vertebral Tenderness Extremity: Normal Capillary Refill, Normal Inspection, Normal Range of Motion, Non Tender, No Calf Tenderness, No Pedal Edema Neurologic/Psychiatric: Alert, Oriented x3, No Motor/Sensory Deficits, Normal Mood/Affect Skin: Normal Color, Warm/Dry Lymphatic: No Adenopathy A/P-Cardiology Admission Diagnosis Atrial flutter Tachycardia Hypotension Dizziness Palpitation Assessment/Plan Atrial flutter with rapid ventricular response, history of atrial fibrillation, intolerant to flecainide with wide-complex tachycardia, had ablation done by Dr. Moran in [place] in February 2016, another ablation done by Dr. Coulter in January 2018, was intolerant to sotalol with severe bradycardia. Had electrical cardioversion March 2018, returned with atrial flutter with 2-1 conduction, started on Cardizem drip without improvement in her heart rate, blood pressure has been borderline low. Discussed with her the management plan, I will start IV loading with amiodarone, she started on oral amiodarone and this morning. Continue on Cardizem drip and planning for possible electrical cardioversion with possibility of temporary pacemaker or permanent pacemaker implantation if needed. I will discuss the management plan with Dr. Coulter prior to proceeding with the procedure. Nonobstructive coronary artery disease per cardiac catheterization done on October 30, 2015. Continue to monitor [id number] score is 3, yearly risk of stroke without oral anticoagulation is 3.2 percent which is considered high risk for stroke, maintained on Eliquis. Did not miss any doses of Eliquis. Continue to monitor Nonsustained ventricular tachycardia, multiple episodes of wide-complex tachycardia appeared to be nonsustained, patient was on flecainide at that time , cardiac catheterization was done in October 2015 and it was normal. No recurrence since discontinuation of flecainide. Continue to monitor Hypertension, borderline hypotensive at this time. Continue to monitor blood pressure Hyperlipidemia, continue to monitor lipids History of intolerance to amiodarone secondary to elevated LFTs, restarting amiodarone and monitoring liver function tests closely Gastroesophageal reflux disease-continue current medication. Mild bilateral carotid stenosis, last ultrasound was done in May 2017, continue to monitor Hyperthyroidism, followed and manged by Dr Vanessa in [place] Clinical Quality Measures DVT/VTE Risk/Contraindication: Risk Factor Score Per Nursin RFS Level Per Nursing on Admit: 2=Moderate RENÉ GR MD Jun 21, 2018 21:39
[2018-06-21] MEDS ORDERED: AMIODARONE 150 MG/3 ML (CORDARONE) AMP IV ONE (21:42)
[2018-06-21] MEDS ORDERED: D5W 100 ML IVPB 100 ML IV ONE (21:43)
[2018-06-21] MEDS ORDERED: AMIODARONE INJECTION 450 MG in D5W IV SOLUTION (EXCEL) 250 ML IV SCH (21:45)
[2018-06-21] MEDS ORDERED: AMIODARONE FOR BOLUS 150 MG in D5W 100 ML IVPB 100 ML IV ONE (21:45)
[2018-06-22] VITALS (25 sets, daily range): BP systolic 94–152; BP diastolic 70–104
[2018-06-22] MEDS: NS IV 1000 ML 1,000 ML IV SCH ×3 (05:50→19:55)
[2018-06-22] MEDS ORDERED: AMIODARONE 450 MG/9 ML (CORDARONE) VIAL IV ONE (06:01)
[2018-06-22] MEDS ORDERED: D5W IV SOLUTION (EXCEL) 250 ML IV ONE (06:01)
[2018-06-22] MEDS: DILTIAZEM INJECTION 125 MG in D5W 100 ML IVPB 100 ML IV SCH (08:36)
[2018-06-22] MEDS: APIXABAN 5 MG (ELIQUIS) TABLET PO SCH ×2 (08:45→21:25)
[2018-06-22] MEDS ORDERED: proPOfol 200 MG/20 ML (DIPRIVAN) VIAL IV ONE ×3 (08:56→11:55)
--- NOTE | 2018-06-22 09:24 | Cardiac Procedure Note-CS/ASA ---
Pre-Procedure Note Pre-Op Procedure Note H&P Reviewed The H&P was reviewed, patient examined and no changes noted. Date H&P Reviewed: Jun 22, 2018 Time H&P Reviewed: 09:24 Conscious Sedation Pre-Proced Time Reviewed: 09:24 ASA Class: 3 Airway Mallampati Classification: ([place] appropriate class) I. II. III, IV Lungs Heart ASA score ASA 1: a normal healthy patient ASA 2: a patient with a mild systemic disease (mid diabetes, controlled hypertension, obesity x ASA 3: a patient with a severe systemic disease that limits activity (angina , COPD, prior Myocardial infarction) ASA 4: a patient with an incapacitating disease that is a constant threat to life (CHF, renal failure) ASA 5: a moribund patient not expected to survive 24 hrs. (ruptured aneurysm) ASA 6: a declared brain patient whose organs are being harvested. For emergent operations, add the letter E after the classification Grade 3 Sedation Plan: Analgesia, Amnesia, Plan communicated to team members, Discussed options with patient/fam, Discussed risks with patient/fam Note The patient is an appropriate candidate to undergo the planned procedure, sedation, and anesthesia. The patient immediately re-assessed prior to indication. RENÉ GR MD Jun 22, 2018 09:24
--- NOTE | 2018-06-22 09:24 | Cardiology Progress Note ---
Subjective Date Seen by Provider: Jun 22, 2018 Time Seen by Provider: 09:21 Subjective/Events-last exam Patient is in bed, still tachycardic, feeling slightly better, no chest pain, mild dizziness Review of Systems General: No Chills, No Night Sweats, No Fatigue; Malaise; No Appetite, No Other HEENT: No Head Aches, No Visual Changes, No Eye Pain, No Ear Pain, No Dysphasia , No Sinus Congestion, No Post Nasal Drip, No Sore Throat, No Other Pulmonary: No Dyspnea, No Cough, No Pleuritic Chest Pain, No Other Cardiovascular: Palpitations; No: Chest Pain, Orthopnea, Paroxysmal Noc. Dyspnea, Edema, Lt Headedness, Other Objective-Cardiology Exam Last Set of Vital Signs Vital Signs 06/21/18 06/22/18 06/22/18 06/22/18 16:56 06:00 08:42 08:48 Temp 98.4 Pulse 113 Resp 18 B/P (MAP) 120/97 (105) Pulse Ox 96 O2 Delivery Room Air FiO2 21 Capillary Refill : Less Than 3 Seconds I&O Intake and Output 06/22/18 00:00 Intake Total 1603 ml Output Total 2300 ml Balance -697 ml Intake Oral 500 ml IV Total 1103 ml Output Urine Total 2300 ml Daily Weight Change No General: Alert, Oriented X3, Cooperative HEENT: Atraumatic, PERRLA Neck: Supple, No JVD, No Thyromegaly Lungs: Clear to Auscultation, Normal Air Movement Heart: Normal S1, Normal S2, No Murmurs, Other (tachycardia) Abdomen: Normal Bowel Sounds, Soft, No Tenderness, No Hepatosplenomegaly, No Masses Extremities: No Clubbing, No Cyanosis, No Edema, Normal Pulses, No Tenderness/ Swelling Skin: No Rashes, No Breakdown, No Significant Lesion Neuro: Normal Gait, Normal Speech, Strength at 5/5 X4 Ext, Normal Tone, Sensation Intact Psych/Mental Status: Mental Status NL, Mood NL Results Lab Laboratory Tests 06/21/18 15:30 A/P-Cardiology Admission Diagnosis Atrial flutter Tachycardia Hypotension Dizziness Palpitation Assessment/Plan Atrial flutter with rapid ventricular response, history of atrial fibrillation, intolerant to flecainide with wide-complex tachycardia, had ablation done by Dr. Moran in [place] in February 2016, another ablation done by Dr. Coulter in January 2018, was intolerant to sotalol with severe bradycardia. Had electrical cardioversion March 2018, returned with atrial flutter with 2-1 conduction, started on Cardizem drip without improvement in her heart rate, blood pressure has been borderline low. Discussed with her the management plan, I will start IV loading with amiodarone, she started on oral amiodarone and this morning. Continue on Cardizem drip and planning for possible electrical cardioversion with possibility of temporary pacemaker or permanent pacemaker implantation if needed. I discussed the management plan with Dr. Coulter. will proceed with a cardioversion with possible pacing Nonobstructive coronary artery disease per cardiac catheterization done on October 30, 2015. Continue to monitor [id number] score is 3, yearly risk of stroke without oral anticoagulation is 3.2 percent which is considered high risk for stroke, maintained on Eliquis. Did not miss any doses of Eliquis. Continue to monitor Nonsustained ventricular tachycardia, multiple episodes of wide-complex tachycardia appeared to be nonsustained, patient was on flecainide at that time , cardiac catheterization was done in October 2015 and it was normal. No recurrence since discontinuation of flecainide. Continue to monitor Hypertension, borderline hypotensive at this time. Continue to monitor blood pressure Hyperlipidemia, continue to monitor lipids History of intolerance to amiodarone secondary to elevated LFTs, restarting amiodarone and monitoring liver function tests closely Gastroesophageal reflux disease-continue current medication. Mild bilateral carotid stenosis, last ultrasound was done in May 2017, continue to monitor Hyperthyroidism, followed and manged by Dr Vanessa in [place] Clinical Quality Measures DVT/VTE Risk/Contraindication: Risk Factor Score Per Nursin RFS Level Per Nursing on Admit: 2=Moderate RENÉ GR MD Jun 22, 2018 09:24
[2018-06-22] MEDS ORDERED: fentaNYL INJECTION 100 MCG/2 ML AMP ONE (09:49)
[2018-06-22] MEDS ORDERED: MIDAZOLAM 5 MG/5 ML (VERSED) VIAL ONE (09:49)
--- OUTSIDE RECORDS SUMMARY | 2018-06-22 09:49 | XMS REPORT | Encounter Summary ---
Author Author [facility] Organization [facility] Address Unknown Phone Unavailable Care Team Providers [place] Department Manager Name Role Phone Silverio Walker MD Unavailable Sung Dunn MD PCP Reason for Visit * Reason Comments Medication Follow-up review medication regimen Encounter Details Date Type Department Care Team Description 06/19/2018 Telephone [facility] Aliya Haskins, physiotherapy practice manager Follow-up [address] (review medication [address] regimen) [place] [address] Social History Tobacco Use Types Packs/Day Years Used Date Never Smoker Smokeless Tobacco: Never Used Alcohol Use Drinks/Week oz/Week Comments Yes 1 Glasses of 0.6 wine Sex Assigned at Date Recorded Not on file as of this encounter Miscellaneous Notes * Telephone Encounter - Mervat Haskins, RN - 06/19/2018 3:16 PM CDT 06/19/[address] Coulter. Pt can take Diltiazem 240 mg twice daily Friday and Friday due to elevated HR. Continue to monitor b/p and HR On 06/21/18, initiate Amiodarone 200 mg 3 times daily and at that time decrease Diltiazem down to 120 mg daily --Plan Cardioversion after been on Amiodarone for approximately 1 week. Cardioversion at - see MPE ov note dated. 06/17/18. Ms Roth was going to check on transportation and get back to us . The week of June 29- works best for her. As of now 07/02/18 MPE is in the EP lab and there is a 7:30 Cardioversion slot open in the EP lab . --3 days prior to cardioversion stop Diltiazem --3 days prior to cardioversion decrease Amiodarone to 400 mg daily Pt will call next week to finalize plans. Jeanine Dempsey RN to Tx 06/19/18 11:08 AM Placed call to patient to discuss heart rate after stopping sotalol on 06/17. Yesterday hr 128 at 1030 (1.5 hours after taking diltiazem 240 mg), Hr 125 bpm at 1530 and Hr 125 bpm at 2100. Today BP 120/85 and hr 133 at 8 am today - she had not taken her diltiazem yet. While on the phone hr was 124/81 and hr 126 bpm (about 2.5 hours after taking diltiazem 240 mg). ----- Message from Jeanine Dempsey RN sent at 06/19/2018 2:52 PM CDT ----- Regarding: FW: ROSLYN told her to call today ----- Message ----- From: Daisy Osman Sent: 06/19/2018 2:41 PM To: Mac Nurse Ep Subject: ROSLYN told her to call today Patient calling in regards to medication plan. ANNALISA told her to call today. Call back is [phone] in this encounter Plan of Treatment Not on fileas of this encounter Visit Diagnoses Not on filein this encounter
--- OUTSIDE RECORDS SUMMARY | 2018-06-22 09:49 | XMS REPORT | Clinical Summary ---
Author Author [facility] Organization [facility] Address Unknown Phone Unavailable Care Team Providers Care Shield Installer Name Role Phone Silverio Walker MD Unavailable Sung Dunn MD PCP Source Comments Some departments are not documenting in the electronic medical record. If you do not see the information that you expected, contact Release of Information in the Health Information Management department at [phone] for further assistance in locating additional records.[facility] Allergies Active Allergy Reactions Severity Noted Date [...] by mouth twice Active tab tablet daily. magnesium oxide (MAG-OX) Take 400 mg by mouth Active 400 mg tablet daily. pravastatin (PRAVACHOL) Take 40 mg by mouth Active 40 mg tablet daily. sertraline (ZOLOFT) 50 mg Take 50 mg by mouth Active tablet daily. busPIRone (BUSPAR) 10 mg Take 1 tablet by mouth 12/29/19 Active tablet twice daily. 18 Biotin 1 mg tab Take 1 tablet by mouth Active daily. fish oil- omega 3-DHA/EPA Take 1 capsule by mouth Active 300/1,000 mg capsule twice daily with meals. vitamin E 400 unit Take 400 Units by mouth Active capsule daily. OMEPRAZOLE (PRILOSEC PO) Take 40 mg by mouth Active daily. fenofibrate micronized(+) Take 200 mg by mouth 05/21/20 Active (LOFIBRA) 200 mg capsule daily. 18 raloxifene (EVISTA) 60 mg Take 60 mg by mouth 05/21/20 Active tablet daily. 18 diltiazem CD (CARDIZEM Take 120 mg by mouth Active CD) 120 mg capsule twice daily. enalapril (VASOTEC) 20 mg Take 1 tablet by mouth 90 tablet 3 06/15/20 Active tablet daily. 18 POTASSIUM PO Take 1 capsule by mouth Active daily. amiodarone (CORDARONE) Take 1 tablet by mouth 90 tablet 6 06/17/20 Active 200 mg tablet three times daily with 18 meals. Take with food. enalapril (VASOTEC) 2.5 Take 2.5 mg by mouth 06/15/20 Discontin mg tablet daily. 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 Encounters Date Type Specialty Care Team Description 06/22/2018 Telephone Cardiology Katharine Crum RN Other (in [place], [place]) 06/22/2018 Pharmacy Visit 06/21/2018 Documentation Cardiology Mervat Haskins RN Amiodarone Monitoring (to start Amiodarone 06/21/18 ) 06/19/2018 Telephone Cardiology Aliya Haskins RN Erroneous encounter-disregard (duplicate encounter) 06/19/2018 Telephone Cardiology Aliya Haskins RN Medication Follow-up (review medication regimen) 06/19/2018 Telephone Cardiology Jeanine Dempsey RN 06/17/2018 Office Visit Cardiology Vicente Coulter MD Atrial fibrillation; Atrial Flutter 06/17/2018 [facility] Cardiology Vicente Coulter MD Arrived Encounter 06/16/2018 Documentation Cardiology Alethea Rader RN Labs Only (06/15 BMP) 06/15/2018 Pharmacy Visit 06/15/2018 Pharmacy Visit 06/15/2018 Telephone Cardiology Alethea Rader RN 06/15/2018 Telephone Cardiology Aleteha Rader RN 06/12/2018 Documentation Cardiology Costa Zapata RN Records Request (06/10 ER visit at [facility] in [place]) 06/12/2018 Telephone Cardiology Costa Zapata RN Medical Question ( "heart issues") 06/01/2018 Telephone Otolaryngology Silverio Walker MD Medication Follow-up (botox) 05/27/2018 [facility] Cardiology Vicente Coulter MD Encounter 05/27/2018 Office Visit Cardiology Vicente Coulter MD Atrial fibrillation (3 month follow up); Atrial Flutter 05/27/2018 Orders Only Cardiology Ama Granger MA 05/06/2018 Procedure visit Otolaryngology Silverio Walker MD Dysphonia (Primary Dx); Adductor spasmodic dysphonia with tremor 05/06/2018 [facility] Cardiology Silverio Walker MD Encounter 05/06/2018 [facility] Radiology Vicente Coulter MD Encounter 05/05/2018 Documentation Cardiology Kelsie Constantino RN Lab Results (BMP ) 05/04/2018 Telephone Cardiology Vanesa Flowers RN 04/07/2018 Orders Only Cardiology Gloria Verma RN [...] 03/30/2018 Documentation Cardiology Elina Grijalva RN 03/25/2018 Procedure Pass Radiology 03/25/2018 Procedure Pass Radiology 03/25/2018 Telephone Cardiology Marielena Gómez RN Other (Post ablation cta needed in April) 03/25/2018 Orders Only Cardiology Marielena Gómez RN Atrial fibrillation , unspecified type (HCC) (Primary Dx) from Last 3 Months Family History Medical [...] Vital Sign Reading Time Taken Blood Pressure 110/80 06/17/2018 4:11 PM CDT Pulse 115 06/17/2018 4:11 PM CDT Temperature 36.9 C (98.5 F) 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 Respiratory Rate - - Oxygen Saturation 97% 01/21/2018 11:00 PM 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 Inhaled Oxygen - - Concentration Weight 71.7 kg (158 lb) 06/17/2018 4:11 PM CDT Height 160 cm (5' 3") 06/17/2018 4:11 PM CDT Body Mass Index 27.99 06/17/2018 4:11 PM CDT Plan of Treatment Health Maintenance Due Date Last Done Comments HEPATITIS C SCREENING 1946 PHYSICAL (COMPREHENSIVE) 1953 EXAM PERTUSSIS VACCINE 1957 TETANUS VACCINE 1963 BREAST CANCER SCREENING 1986 COLORECTAL CANCER 1996 SCREENING SHINGLES RECOMBINANT 1996 VACCINE (1 of 2) OSTEOPOROSIS SCREENING 2011 PNEUMONIA (PCV13/PPSV23) 2011 VACCINES (1 of 2 - PCV13) INFLUENZA VACCINE 08/17/2018 09/24/2017 Implants Implanted Type Area Independent Living Specialist Device Expiration Model / Identifier Date Serial / Lot Linq Other [employer] Procedures Procedure Name Priority Date/Time Associated Diagnosis Comments ECG-SCAN 06/19/2018 Results for this 10:22 AM CDT procedure are in the results section. ECG-SCAN 06/19/2018 Results for this 10:22 AM CDT procedure are in the results section. BOTOX Routine 05/06/2018 Dysphonia Results for this (ONABOTULINUMTOXINA) 1:00 PM CDT Adductor spasmodic procedure are in the dysphonia with tremor results section. ECG-SCAN 04/07/2018 Results for this 12:26 PM CDT procedure are in the results section. from Last 3 Months Results * ECG-SCAN (06/19/2018 10:22 AM) Narrative Performed At Ordered by an unspecified provider. * ECG-SCAN (06/19/2018 10:22 AM) Narrative Performed At Ordered by an unspecified provider. * ECG/QRS (06/17/2018 4:21 PM) Only the most recent of 2 results within the time period is included. QRS DURATION 76 OTHER OUTSIDE LAB Performing Organization Address City/State/Zipcode Phone Number OTHER OUTSIDE LAB * DEVICE EVALUATION - ILR (06/17/2018 3:04 PM) Only the most recent of 2 results within the time period is included. Generator Model # [id number] OTHER OUTSIDE LAB Generator Serial # [id number] OTHER OUTSIDE LAB Generator Implnat Date 01/03/16 OTHER OUTSIDE LAB Device Implanted By [facility] OTHER OUTSIDE LAB EP Device Followed By Other OTHER OUTSIDE LAB ILR Symptom Duration Four 7.5 min Episodes OTHER OUTSIDE LAB ILR Tachy Rate 162 OTHER OUTSIDE LAB ILR Tachy Duration 16 OTHER OUTSIDE LAB ILR Pause Duration 3 OTHER OUTSIDE LAB ILR Wilbert Rate 30 OTHER OUTSIDE LAB ILR Wilbert Duration 4 OTHER OUTSIDE LAB ILR AT Events Since Last n/a OTHER OUTSIDE LAB Interrogation ILR AT Lifetime Events as n/a OTHER OUTSIDE LAB of ILR AF Rate AF only OTHER OUTSIDE LAB ILR AF Duration episodes > 6 mins OTHER OUTSIDE LAB EP Device Followed by Dr. Price OTHER OUTSIDE LAB Name Device [place] [facility] OTHER OUTSIDE LAB Transmitter Compatible Known Diagnosed AFib Yes OTHER OUTSIDE LAB On Anticoagulation Yes OTHER OUTSIDE LAB Generator Independent Living Specialist [employer] OTHER OUTSIDE LAB Narrative Performed At OTHER OUTSIDE LAB In office LINQ check Pt follows with Dr. Price. We do not follow remote. Presenting EGM: Regular tachycardia, appears likely 2:1 Aflutter, V rate 114bpm. Appears pt has been out of rhythm since 06/10/18 Events since last OV check with us on 05/27/18: 11 Tachy #[id number], all on 06/10/18. EGMs show likely AFib/flutter with RVR, occas aberrant beats vs PVC, rates 180s-190sbpm 9 AF #[id number], all 06/10-06/12/18.EGMs show AFib w RVR, V rates 110s-190sbpm. Appears pt has been out of rhythm since 06/10/18 Programming changes made: none Report given to Dr. Coulter. Performing Organization Address City/[facility]/Zipcode Phone Number OTHER OUTSIDE LAB * BASIC METABOLIC PANEL (06/15/2018) Only the most recent of 2 results within the time period is included. Sodium 137 OTHER OUTSIDE LAB Potassium 4.0 OTHER OUTSIDE LAB Chloride 100 OTHER OUTSIDE LAB CO2 28.0 OTHER OUTSIDE LAB Blood Urea Nitrogen 19 OTHER OUTSIDE LAB Creatinine 0.8 OTHER OUTSIDE LAB Glucose 106 OTHER OUTSIDE LAB Calcium 9.7 OTHER OUTSIDE LAB eGFR Non 73 OTHER OUTSIDE LAB eGFR OTHER OUTSIDE LAB Anion Gap 13 OTHER OUTSIDE LAB Specimen Blood - Blood Performing Organization Address City/[facility] Phone Number OTHER OUTSIDE LAB * BOTOX (ONABOTULINUMTOXINA) (05/06/2018 1:00 PM) Narrative Performed At Silverio Walker MD 05/06/20181:14 PM IN CLINIC BOTOX INJECTION 5 units injected into the [...] the left TA with 5 units today. Performing Organization Address City/[facility] Phone Number IN CLINIC * CT LMTD CHEST W CARDIAC (05/06/2018 11:36 AM) Impressions Performed At Small hiatal hernia. No other significant pulmonary or extracardiac [facility] abnormalities are identified. Please see separately dictated cardiac CT report. Finalized by Hector Forman M.D. on 05/06/2018 4:03 PM. Dictated by Hector Forman M.D. on 05/06/2018 4:01 PM. Narrative Performed At Limited CT chest [facility] Clinical history: Atrial fibrillation Technique: Multiple contiguous axial images were obtained to portions of the chest with contrast during cardiac CT imaging. The cardiac portions the study are dictated separately. Findings: Comparison is made to Limited CT chest dated January 01, 2018. A small hiatal hernia is again noted. An implanted loop recorder is again seen in the left anterior upper chest wall. There are no other significant pulmonary or extracardiac abnormalities identified. Procedure Note Interface, Radiant Results - 05/06/2018 4:[address] chest Clinical history: Atrial fibrillation Technique: Multiple contiguous axial images were obtained to portions of the chest with contrast during cardiac CT imaging. The cardiac portions the study are dictated separately. Findings: Comparison is made to Limited CT chest dated January 01, 2018. A small hiatal hernia is again noted. An implanted loop recorder is again seen in the left anterior upper chest wall. There are no other significant pulmonary or extracardiac abnormalities identified. IMPRESSION Small hiatal hernia. No other significant pulmonary or extracardiac abnormalities are identified. Please see separately dictated cardiac CT report. Finalized by Hector Forman M.D. on 05/06/2018 4:03 PM. Dictated by Hector Forman M.D. on 05/06/2018 4:01 PM. Performing Organization Address City/State/Zipcode Phone Number [facility] * CT CARDIAC STRUCTURE WO/W CONT (05/06/2018 11:36 AM) Impressions Performed At 1.The left ventricle is normal in size. There is no left ventricular [facility] hypertrophy. 2.The right ventricle is normal in size. There is no right ventricular hypertrophy. 3.Right atrium is moderately enlarged. 4.The left atrium is severely enlarged. There is incomplete mixing of contrast in the left atrial appendage. The presence of apical thrombus could not be definitively ruled out. 5.There are 2 right-sided and 2 left-sided pulmonary veins. Pulmonary vein ostial measurements are mentioned above. There is no discrete pulmonary vein ostial stenosis. 6.Mild aortic valve calcification noted. The aortic valve is trileaflet in appearance. 7.Moderate coronary artery calcification is noted. 8.The visualized portions of the aorta appears free of aneurysm, dissection or coarctation. By my electronic signature, I attest that I have personally reviewed the images for this examination and formulated the interpretations and opinions expressed in this report Finalized by ANASTASIA WANG M.D. on 05/07/2018 1:13 PM. Dictated by Randal Mukherjee M.D. on 05/07/2018 9:46 AM. Narrative Performed At [facility] CT CARDIAC STRUCTURE WO/W CONT Primary reading physician: Anastasia Wang MD Secondary reading physician: Randal Mukherjee MD Exam date: 05/06/2018 Study number: [id number] INDICATIONS: Atrial fibrillation, Ms. Franz is a 72-year-old female with a past medical history of paroxysmal atrial fibrillation status post ablation in [place] in 02/2016. She underwent a redo ablation on 01/21/2018. This study is being done postablation for evaluation of left atrial and pulmonary venous anatomy. PROCEDURAL DETAILS: 128 slice, dual source, computed tomography of the heart, without contrast material followed by contrast material and further sections, including cardiac gating and 3-D image postprocessing; cardiac structure and morphology. FINDINGS: General Cardiac Morphology and Structure: The cardiac situs is normal. The diaphragm is in normal respiratory position. Implantable loop recorder is noted in the left anterior chest. The left ventricle is normal in size. There is no left ventricular hypertrophy. The intraventricular septum measures thickest point measures 1.0 cm. The posterior wall measures 0.9 cm. The interventricular septum is intact. There is normal left ventricular myocardial compaction. The right ventricle is normal in size. There is no right ventricular hypertrophy. The mitral valve is normal in appearance. There is no leaflet thickening. There is no mitral annular calcification. The aortic valve has mild calcification. There are 3 aortic cusps. The left main arises from the left coronary cusp. It bifurcates into left anterior descending artery and left circumflex coronary artery. The left anterior descending artery gives to diagonal branches. There is moderate amount of calcification in the left anterior descending artery and its diagonal branches. There is mild calcific plaque noted in the left circumflex coronary artery. The RCA arises from the right coronary cusp. It is a large dominant vessel. Mild calcific plaque is noted in the right coronary artery. This study was not designed for the assessment of coronary arteries. The tricuspid valve is not well visualized. Visualized portions of the pulmonic valve are normal. The pericardium is normal. There is no pericardial effusion. Atrial and Pulmonary Venous Anatomy: The left atrium is severely enlarged. The interatrial septum is intact. There is incomplete mixing of contrast in the left atrial appendage. On delayed images , there is no definitive evidence of thrombus, however the presence of apical thrombus could not be ruled out. The left atrial volume is 189 mL. The left atrial measurements include: Long axis 6.5 cm, transverse dimension is 4.2 cm. The transverse dimension and parasternal long axis view is 4.3 cm. The right atrium is moderately enlarged. The pulmonary venous anatomy is normal. The right upper pulmonary vein ostial diameters are 2.2 cm X 1.8 cm. The area is 3.3 cm squared. The right lower pulmonary vein ostial diameters are 2.2 cm X 1.9 cm. The area is 3.3 cm squared. The left lower pulmonary vein ostial diameters are 1.9 cm X 0.9 cm. The area is 1.6 cm squared. The left upper pulmonary vein ostial diameters are 2.1 cm X 1.0 cm. The area is 1.9 cm squared. This study was compared to a prior CCTA obtained on 01/01/2018. The right upper pulmonary vein ostial diameters are 2.0 cm X 1.5 cm. The area is 2.6 cm squared. The right lower pulmonary vein ostial diameters are 2.0 cm X 1.9 cm. The area is 3.1 cm squared. The left lower pulmonary vein ostial diameters are 2.0 cm X 0.9 cm. The area is 1.4 cm squared. The left upper pulmonary vein ostial diameters are 2.0 cm X 1.0 cm. The area is 1.6 cm squared. Aorta and Pulmonary Arteries: The thoracic aorta is normal in size. The ascending thoracic aorta measures 3.5 cm. The descending thoracic aorta measures 2.7 cm. Visualized portions of the thoracic aorta appears free of aneurysm, dissection or coarctation. The visualized portions of the pulmonary arteries were normal. The main pulmonary artery measures 3.0 cm. There are no definite filling defects. Noncardiac Findings: Noncardiac findings are reported separately under the "Limited CT Chest Report " of the same date. Procedure Note Interface, Radiant Results - 05/07/2018 1:[address] CARDIAC STRUCTURE WO/W CONT Primary reading physician: Anastasia Wang MD Secondary reading physician: Randal Mukherjee MD Exam date: 05/06/2018 Study number: [id number] INDICATIONS: Atrial fibrillation, Ms. Franz is a 72-year-old female with a past medical history of paroxysmal atrial fibrillation status post ablation in [place] in 02/2016. She underwent a redo ablation on 01/21/2018. This study is being done postablation for evaluation of left atrial and pulmonary venous anatomy. PROCEDURAL DETAILS: 128 slice, dual source, computed tomography of the heart, without contrast material followed by contrast material and further sections, including cardiac gating and 3-D image postprocessing; cardiac structure and morphology. FINDINGS: General Cardiac Morphology and Structure: The cardiac situs is normal. The diaphragm is in normal respiratory position. Implantable loop recorder is noted in the left anterior chest. The left ventricle is normal in size. There is no left ventricular hypertrophy. The intraventricular septum measures thickest point measures 1.0 cm. The posterior wall measures 0.9 cm. The interventricular septum is intact. There is normal left ventricular myocardial compaction. The right ventricle is normal in size. There is no right ventricular hypertrophy. The mitral valve is normal in appearance. There is no leaflet thickening. There is no mitral annular calcification. The aortic valve has mild calcification. There are 3 aortic cusps. The left main arises from the left coronary cusp. It bifurcates into left anterior descending artery and left circumflex coronary artery. The left anterior descending artery gives to diagonal branches. There is moderate amount of calcification in the left anterior descending artery and its diagonal branches. There is mild calcific plaque noted in the left circumflex coronary artery. The RCA arises from the right coronary cusp. It is a large dominant vessel. Mild calcific plaque is noted in the right coronary artery. This study was not designed for the assessment of coronary arteries. The tricuspid valve is not well visualized. Visualized portions of the pulmonic valve are normal. The pericardium is normal. There is no pericardial effusion. Atrial and Pulmonary Venous Anatomy: The left atrium is severely enlarged. The interatrial septum is intact. There is incomplete mixing of contrast in the left atrial appendage. On delayed images , there is no definitive evidence of thrombus, however the presence of apical thrombus could not be ruled out. The left atrial volume is 189 mL. The left atrial measurements include: Long axis 6.5 cm, transverse dimension is 4.2 cm. The transverse dimension and parasternal long axis view is 4.3 cm. The right atrium is moderately enlarged. The pulmonary venous anatomy is normal. The right upper pulmonary vein ostial diameters are 2.2 cm X 1.8 cm. The area is 3.3 cm squared. The right lower pulmonary vein ostial diameters are 2.2 cm X 1.9 cm. The area is 3.3 cm squared. The left lower pulmonary vein ostial diameters are 1.9 cm X 0.9 cm. The area is 1.6 cm squared. The left upper pulmonary vein ostial diameters are 2.1 cm X 1.0 cm. The area is 1.9 cm squared. This study was compared to a prior CCTA obtained on 01/01/2018. The right upper pulmonary vein ostial diameters are 2.0 cm X 1.5 cm. The area is 2.6 cm squared. The right lower pulmonary vein ostial diameters are 2.0 cm X 1.9 cm. The area is 3.1 cm squared. The left lower pulmonary vein ostial diameters are 2.0 cm X 0.9 cm. The area is 1.4 cm squared. The left upper pulmonary vein ostial diameters are 2.0 cm X 1.0 cm. The area is 1.6 cm squared. Aorta and Pulmonary Arteries: The thoracic aorta is normal in size. The ascending thoracic aorta measures 3.5 cm. The descending thoracic aorta measures 2.7 cm. Visualized portions of the thoracic aorta appears free of aneurysm, dissection or coarctation. The visualized portions of the pulmonary arteries were normal. The main pulmonary artery measures 3.0 cm. There are no definite filling defects. Noncardiac Findings: Noncardiac findings are reported separately under the "Limited CT Chest Report" of the same date. IMPRESSION 1. The left ventricle is normal in size. There is no left ventricular hypertrophy. 2. The right ventricle is normal in size. There is no right ventricular hypertrophy. 3. Right atrium is moderately enlarged. 4. The left atrium is severely enlarged. There is incomplete mixing of contrast in the left atrial appendage. The presence of apical thrombus could not be definitively ruled out. 5. There are 2 right-sided and 2 left-sided pulmonary veins. Pulmonary vein ostial measurements are mentioned above. There is no discrete pulmonary vein ostial stenosis. 6. Mild aortic valve calcification noted. The aortic valve is trileaflet in appearance. 7. Moderate coronary artery calcification is noted. 8. The visualized portions of the aorta appears free of aneurysm, dissection or coarctation. By my electronic signature, I attest that I have personally reviewed the images for this examination and formulated the interpretations and opinions expressed in this report Finalized by ANASTASIA WANG M.D. on 05/07/2018 1:13 PM. Dictated by Randal Mukherjee M.D. on 05/07/2018 9:46 AM. Performing Organization Address City/State/Zipcode Phone Number [facility] * ECG-SCAN (04/07/2018 12:26 PM) Narrative Performed At Ordered by an unspecified provider. from Last 3 Months
--- OUTSIDE RECORDS SUMMARY | 2018-06-22 09:49 | XMS REPORT | Encounter Summary ---
Author Author [facility] Organization [facility] Address Unknown Phone Unavailable Care Team Providers Care Product Operations Associate Name Role Phone Silverio Walker MD Unavailable Sung Dunn MD PCP Reason for Visit * Reason Comments Erroneous duplicate encounter encounter-disregard Encounter Details Date Type Department Care Team Description 06/19/2018 Telephone [facility] Cardiology Aliya Haskins, DIANE Erroneous [place] [address] encounter-disregard [address] (duplicate encounter) [place] [address] Social History Tobacco Use Types Packs/Day Years Used Date Never Smoker Smokeless Tobacco: Never Used Alcohol Use Drinks/Week oz/Week Comments Yes 1 Glasses of 0.6 wine Sex Assigned at Date Recorded Not on file as of this encounter Plan of Treatment Not on fileas of this encounter Visit Diagnoses Not on filein this encounter
--- OUTSIDE RECORDS SUMMARY | 2018-06-22 09:49 | XMS REPORT | Encounter Summary ---
Author Author [facility] Organization [facility] Address Unknown Phone Unavailable Care Team Providers Care Licensed Sales Producer Name Role Phone Silverio Walker MD Unavailable Sung Dunn MD PCP Reason for Visit * Reason Comments Amiodarone Monitoring to start Amiodarone 06/21/18 Encounter Details Date Type Department Care Team Description 06/21/2018 Documentation [facility] Mervat Haskins, DIANE Amiodarone Monitoring (to [address] start Amiodarone 06/21/18 DANDRE [place]IN [id number] ) [phone] Social History Tobacco Use Types Packs/Day Years Used Date Never Smoker Smokeless Tobacco: Never Used Alcohol Use Drinks/Week oz/Week Comments Yes 1 Glasses of 0.6 wine Sex Assigned at Date Recorded Not on file as of this encounter Progress Notes * Mervat Haskins, RN - 06/21/2018 12:53 PM CDT Formatting of this note may be different from the original. Amiodarone Monitoring status as of 06/21/18: Most recent lab results No results found for: AST, ALT, TSH, TSH3G, XGOIT5C Pt had recent TSH , Free T4 04/2018 . I requested results Shona Vanessa MD [address] [place] [address] [place] [address] I requested recent lft's from pt's PCP Sung Dunn III, MD PCP - General Internal Medicine 11/24/2017 End ; Procedures Last chest X-Ray: 11/21/17 - results scanned in chart Last PFT: - results pending - order mailed to pt Last eye exam: pt stated that she has seen her eye doctor with in the last 6 monts in this encounter Plan of Treatment Not on fileas of this encounter Visit Diagnoses Diagnosis Paroxysmal atrial fibrillation (HCC) - Primary Atrial fibrillation H/O amiodarone therapy Personal history of other drug therapy
--- OUTSIDE RECORDS SUMMARY | 2018-06-22 09:49 | XMS REPORT | Encounter Summary ---
Author Author [facility] Organization [facility] Address Unknown Phone Unavailable Care Team Providers Care Candy Rolling Machine Operator Name Role Phone Silverio Walker MD Unavailable Sung Dunn MD PCP Encounter Details Date Type Department Care Team Description 06/19/2018 Telephone [facility] Cardiology Jeanine Dempsey RN [facility] [place] [address] [place] [address] [place] [address] Social History Tobacco Use Types Packs/Day Years Used Date Never Smoker Smokeless Tobacco: Never Used Alcohol Use Drinks/Week oz/Week Comments Yes 1 Glasses of 0.6 wine Sex Assigned at Date Recorded Not on file as of this encounter Miscellaneous Notes * Telephone Encounter - Jeanine Dempsey RN - 06/19/2018 11:01 AM CDT Placed call to patient to discuss heart [...] 2.5 hours after taking diltiazem 240 mg). Will route to DIANE Crowell to f/u with plan with MPE. * Telephone Encounter - Jeanine Dempsey RN - 06/19/2018 10:07 AM CDT ----- Message from Yesy Tovar LPN sent at 06/19/2018 9:59 AM CDT ----- Regarding: MPE- plan of care VM from patient on triage line. Said that she would like to know what the plan is to get her heart back in rhythm. in this encounter Plan of Treatment Not on fileas of this encounter Visit Diagnoses Not on filein this encounter
--- OUTSIDE RECORDS SUMMARY | 2018-06-22 09:50 | XMS REPORT | Encounter Summary ---
Author Author [facility] Organization [facility] Address Unknown Phone Unavailable Care Team Providers Care Powder Shoveler Name Role Phone Silverio Walker MD Unavailable Sung Dunn MD PCP Encounter Details Date Type Department Care Team Description 05/27/2018 Orders Only [facility] Ama Granger MA [facility] [place] [facility] [place] [address] [place] [address] Social History Tobacco Use Types Packs/Day Years Used Date Never Smoker Smokeless Tobacco: Never Used Alcohol Use Drinks/Week oz/Week Comments Yes 1 Glasses of 0.6 wine Sex Assigned at Date Recorded Not on file as of this encounter Plan of Treatment Not on fileas of this encounter Visit Diagnoses Not on filein this encounter
--- OUTSIDE RECORDS SUMMARY | 2018-06-22 09:50 | XMS REPORT | Encounter Summary ---
Author Author [facility] Organization [facility] Address Unknown Phone Unavailable Care Team Providers Care Body Work Auto Trimmer Name Role Phone Silverio Walker MD Unavailable Sung Dunn MD PCP Encounter Details Date Type Department Care Team Description 06/15/2018 Telephone [facility] Cardiology Alethea Rader, DIANE [facility] [place] [address] Social History Tobacco Use Types Packs/Day Years Used Date Never Smoker Smokeless Tobacco: Never Used Alcohol Use Drinks/Week oz/Week Comments Yes 1 Glasses of 0.6 wine Sex Assigned at Date Recorded Not on file as of this encounter Miscellaneous Notes * Telephone Encounter - Alethea Rader RN - 06/15/2018 2:21 PM CDT see previous note. order faxed for repeat labs in am (bmp) * Telephone Encounter - Alethea Rader RN - 06/15/2018 1:40 PM CDT ----- Message from Yesy Tovar LPN sent at 06/15/2018 11:41 AM CDT ----- Regarding: MPE- Seen keith VM on triage line from Maryann with Dr. Harris office # [phone]. Said that she was seen in office this am and is having 2 to 1 atrial tach and prolonged QT. He would like her Sotalol regulated and seen keith. Call back to discuss more. in this encounter Plan of Treatment Not on fileas of this encounter Visit Diagnoses Not on filein this encounter
--- OUTSIDE RECORDS SUMMARY | 2018-06-22 09:50 | XMS REPORT | Encounter Summary ---
Author Author [facility] Organization [facility] Address Unknown Phone Unavailable Care Team Providers Care Engineer Of System Development Name Role Phone Silverio Walker MD Unavailable Sung Dunn MD PCP Encounter Details Date Type Department Care Team Description 05/27/2018 [facility] Cardiology Vicente Coulter MD Encounter [facility] [place] [facility] [place] [address] [address] [place] [address] [place] [address] [phone] Social History Tobacco Use Types Packs/Day Years [...] tablet by mouth 12/29/2017 tablet twice daily. fenofibrate micronized(+) Take 200 mg by mouth 05/21/2018 (LOFIBRA) 200 mg capsule daily. fish oil- omega 3-DHA/EPA Take 1 capsule by mouth 300/1,000 mg capsule twice daily with meals. magnesium oxide (MAG-OX) Take 400 mg by mouth 400 mg tablet daily. OMEPRAZOLE (PRILOSEC PO) Take 40 mg by mouth daily. pravastatin (PRAVACHOL) Take 40 mg by mouth 40 mg tablet daily. raloxifene (EVISTA) 60 mg Take 60 mg by mouth 05/21/2018 tablet daily. sertraline (ZOLOFT) 50 mg Take 50 mg by mouth tablet daily. vitamin E 400 unit Take 400 Units by mouth capsule daily. enalapril (VASOTEC) 2.5 Take 2.5 mg by mouth 06/15/2018 mg tablet daily. sotalol (BETAPACE) 80 mg 1.5 tablet in morning, 1 270 tablet 3 201706/17/2018 tabletIndications: tablet in evening Paroxysmal atrial fibrillation (HCC) as of this encounter Plan of Treatment Not on fileas of this encounter Results * DEVICE EVALUATION - ILR (05/27/2018 11:56 AM) Generator Model # [id number] OTHER OUTSIDE LAB Generator Serial # [id number] OTHER OUTSIDE LAB Generator Implnat Date 01/03/16 OTHER OUTSIDE LAB Device Implanted By [facility] OTHER OUTSIDE LAB EP Device Followed By [...] Dr. Price OTHER OUTSIDE LAB Name Device [employer] OTHER OUTSIDE LAB Transmitter Compatible Known Diagnosed AFib Yes OTHER OUTSIDE LAB On Anticoagulation Yes OTHER OUTSIDE LAB Generator Brigadier Medtronic OTHER OUTSIDE LAB ILR Symptom Lifetime 1 OTHER OUTSIDE LAB Events as of ILR Tachy Lifetime Events 107 OTHER OUTSIDE LAB as of ILR Pause Lifetime Events 12 OTHER OUTSIDE LAB as of ILR Wilbert Lifetime Events 34 OTHER OUTSIDE LAB as of ILR AF Lifetime Events as 684 OTHER OUTSIDE LAB of ILR Lifetime Events as of 05/27/18 OTHER OUTSIDE LAB Datetion Narrative Performed At OTHER OUTSIDE LAB In office LINQ check.Pt is followed by Dr. Price in [place].We do not do remote. Presenting EGM: SB 56bpm Events since last interrogation 05/05/18: none Reviewed prior events since pt was here on 03/05/18: #[id number] AF events from 04/11/18-04/14/18.4.5hrs on 04/11/18 and then intermittent, 6-50min on 04/12, 04/13 and 04/14.EGMS show likely AFlutter/ATach with V rates avg 97-130bpm.Dr. Coulter thinks pt was likely in Aflutter/Atach with regular V rate, thus undetected AF events. (pt was DCCV on 04/14/18) Programming changes made: none Report given to Dr. Coulter. Performing Organization Address City/State/Zipcode Phone Number OTHER OUTSIDE LAB in this encounter Visit Diagnoses Diagnosis Cardiac device in situ Unspecified cardiac device in situ
--- OUTSIDE RECORDS SUMMARY | 2018-06-22 09:50 | XMS REPORT | Encounter Summary ---
Author Author [facility] Organization [facility] Address Unknown Phone Unavailable Care Team Providers Care Per Diem Name Role Phone Silverio Walker MD Unavailable Sung Dunn MD PCP Encounter Details Date Type Department Care Team Description 06/15/2018 Pharmacy Visit [facility] [address] [place] [address] Social History Tobacco Use Types Packs/Day Years Used Date Never Smoker Smokeless Tobacco: Never Used Alcohol Use Drinks/Week oz/Week Comments Yes 1 Glasses of 0.6 wine Sex Assigned at Date Recorded Not on file as of this encounter Plan of Treatment Not on fileas of this encounter Visit Diagnoses Not on filein this encounter
--- OUTSIDE RECORDS SUMMARY | 2018-06-22 09:50 | XMS REPORT | Encounter Summary ---
Author Author [facility] Organization [facility] Address Unknown Phone Unavailable Care Team Providers Care Pain Management Nurse Practitioner Name Role Phone Silverio Walker MD Unavailable Sung Dunn MD PCP Reason for Visit * Reason Comments Labs Only 06/15 BMP Encounter Details Date Type Department Care Team Description 06/16/2018 Documentation [facility] Alethea Rader, DIANE Labs Only (06/15 BMP) [place] [address] [address] [place] [address] Social History Tobacco Use Types Packs/Day Years Used Date Never Smoker Smokeless Tobacco: Never Used Alcohol Use Drinks/Week oz/Week Comments Yes 1 Glasses of 0.6 wine Sex Assigned at Date Recorded Not on file as of this encounter Plan of Treatment Not on fileas of this encounter Results * BASIC METABOLIC PANEL (06/15/2018) Sodium 137 OTHER OUTSIDE LAB Potassium 4.0 [...] Specimen Blood - Blood Performing Organization Address City/State/Zipcode Phone Number OTHER OUTSIDE LAB in this encounter Visit Diagnoses Not on filein this encounter
--- OUTSIDE RECORDS SUMMARY | 2018-06-22 09:50 | XMS REPORT | Encounter Summary ---
Author Author [facility] Organization [facility] Address Unknown Phone Unavailable Care Team Providers Care Automatic Paint Sprayer Operator Name Role Phone Silverio Walker MD Unavailable Sung Dunn MD PCP Encounter Details Date Type Department Care Team Description 06/17/[address] [facility] Cardiology Vicente Coulter MD Arrived Encounter [facility] [place] [facility] [place] [address] [address] [place] [address] [place] [address] [phone] Social History Tobacco Use Types Packs/Day Years [...] MOUTH TWICE A DAY amiodarone (CORDARONE) Take 1 tablet by mouth 90 tablet 6 06/17/2018 200 mg tablet three times daily with meals. Take with food. apixaban (ELIQUIS) 5 mg Take 5 mg by mouth twice tab tablet daily. Biotin 1 mg tab Take 1 tablet by mouth daily. busPIRone (BUSPAR) 10 mg Take 1 tablet by mouth 12/29/2017 tablet twice daily. diltiazem CD (CARDIZEM Take 120 mg by mouth CD) 120 mg capsule twice daily. enalapril (VASOTEC) 20 mg Take 1 tablet by mouth 90 tablet 3 2017 tablet daily. fenofibrate micronized(+) Take 200 mg by mouth 05/21/2018 (LOFIBRA) 200 mg capsule daily. fish oil- omega 3-DHA/EPA Take 1 capsule by mouth 300/1,000 mg capsule twice daily with meals. magnesium oxide (MAG-OX) Take 400 mg by mouth 400 mg tablet daily. OMEPRAZOLE (PRILOSEC PO) Take 40 mg by mouth daily. POTASSIUM PO Take 1 capsule by mouth daily. pravastatin (PRAVACHOL) Take 40 [...] encounter Results * DEVICE EVALUATION - ILR (06/17/2018 3:04 PM) Generator Model # [id number] OTHER OUTSIDE LAB Generator Serial # [id number] OTHER OUTSIDE LAB Generator Implnat Date 01/03/16 OTHER OUTSIDE LAB Device Implanted By [facility] OTHER OUTSIDE LAB EP Device Followed By [...] Dr. Price OTHER OUTSIDE LAB Name Device [employer] OTHER OUTSIDE LAB Transmitter Compatible Known Diagnosed AFib Yes OTHER OUTSIDE LAB On Anticoagulation Yes OTHER OUTSIDE LAB Generator [employer] Claim Adjuster [employer] OTHER OUTSIDE LAB Narrative Performed At OTHER OUTSIDE LAB In office LINQ check Pt follows with Dr. Price. We do not follow remote. Presenting EGM: Regular tachycardia, appears likely 2:1 Aflutter, V rate 114bpm. Appears pt has been out of rhythm since 06/10/18 Events since last OV check with us on 05/27/18: 11 Tachy #[id number], all on 06/10/18. EGMs show likely AFib/flutter with RVR, occas aberrant beats vs PVC, rates 180s-190sbpm 9 AF #[id number], all 06/10-06/12/18.EGMs show AFib w RVR, V rates 110s-190sbpm. Appears pt has been out of rhythm since 06/10/18 Programming changes made: none Report given to Dr. Coulter. Performing Organization Address City/State/Zipcode Phone Number OTHER OUTSIDE LAB in this encounter Visit Diagnoses Diagnosis Atrial tachycardia (HCC) Other specified cardiac dysrhythmias
--- OUTSIDE RECORDS SUMMARY | 2018-06-22 09:50 | XMS REPORT | Encounter Summary ---
Author Author [facility] Organization [facility] Address Unknown Phone Unavailable Care Team Providers Care Machine Carton Marker Name Role Phone Silverio Walker MD Unavailable Sung Dunn MD PCP Reason for Visit * Reason Comments Medical Question "heart issues" Encounter Details Date Type Department Care Team Description 06/12/2018 Telephone [facility] Cardiology Costa Zapata RN Medical Question ("heart [facility] [place] [facility] 3rd issues") [facility] [address] [address] [place] [address] Social History Tobacco Use Types Packs/Day Years Used Date Never Smoker Smokeless Tobacco: Never Used Alcohol Use Drinks/Week oz/Week Comments Yes 1 Glasses of 0.6 wine Sex Assigned at Date Recorded Not on file as of this encounter Miscellaneous Notes * Telephone Encounter - Costa Zapata RN - 06/12/2018 2:38 PM CDT Formatting of this note may be different from the original. MPE- RTC Received: Today Call patient Message Contents Yesy Tovar LPN P [facility] Nurse Ep from patient on triage line returning or call. Returned call to patient. She states that Friday (06/10) evening she developed tachycardia & dizziness with standing. She went to [facility] ER; HR 140s-150s. She received IV diltiazem, then was discharged on po diltiazem 120qd. She states HRs 95-115 since. She states she called Dr. Harris (Dr. Price's partner) last noc with HR 115. He increased diltiazem to 120bid. She states she went into Dr. Price's office today (06/12) for ILR interrogation with showed HR 103. She states she did not have an accompanying OV & the staff did not tell her if she was in AF or AFL. She states she has an OV with an ROUTE AGENT at Dr. Price's office on Friday (06/15). She states Dr. Price is OOT. She states that she does not feel that her heart rhythm is being treated appropriately as "Dr. Price wouldn't want my heart rate that high." She informs me that E wanted her to make medication adjustments for further episodes of AF or AFL. Per 05/27 E OV... For now we will continue her sotalol at her current dosing. However she continues to have recurrent AFIB I would like to discontinue the sotalol and a few days later start amiodarone. If however she has recurrent documented atrial tachycardia and a third procedure may be an option although my threshold would be very high to take that route. I reassured the patient that she is safe and that the care provided by Dr. Price 's office thus far has been appropriate. she verbalized relief knowing that. I told her that Dr. Price should be privy to [facility]'s last OV note explaining the plan of care for recurrent atrial dysrhythmia. She verbalized understanding. She requested that we obtain the records for her ER visit to [facility] & the ILR check done at Dr. Price's office. She would like for E to review these records & make a recommendation. I told her we would obtain the records & get MPE recommendation. She reports compliance with Eliquis. I told her to keep her OV on Friday. She stated she would. I called Dr. Price's office. I spoke with Maryann. She confirmed that they had the 05/27 [facility] OV notes. She states the patient does not have an OV with an ROUTE AGENT on Friday, rather, she has an OV with Dr. Harris. She stated she would send us patient's ILR check from today; EP RightFax number given. Will request records from [facility]. Will route to Alethea for f/u. * Telephone Encounter - Costa Zapata RN - 06/12/2018 11:24 AM CDT Returned call to patient - [facility] for CB. * Telephone Encounter - Costa Zapata RN - 06/12/2018 11:23 AM CDT ----- Message from Yesy Tovar LPN sent at 06/12/2018 9:59 AM CDT ----- Regarding: MPE- heart issues VM from patient on triage line. Said that she is having some heart issues and is on vacation. She really needs to speak to nurse to make her feel better. in this encounter Plan of Treatment Not on fileas of this encounter Visit Diagnoses Not on filein this encounter
--- OUTSIDE RECORDS SUMMARY | 2018-06-22 09:50 | XMS REPORT | Encounter Summary ---
Author Author [facility] Address Unknown Phone Unavailable Care Team Providers Care Repair Supervisor Name Role Phone Silverio Walker MD Unavailable Sung Dunn MD PCP Reason for Visit * Reason Comments Atrial fibrillation Atrial Flutter Encounter Details Date Type Department Care Team Description 06/17/2018 Office Visit [facility] Cardiology Vicente Coulter MD Atrial fibrillation; [facility] [place] [facility] [address] Atrial Flutter fl [address] [address] [place] [address] [place] [address] [phone] Social History Tobacco Use Types Packs/Day Years Used Date Never Smoker Smokeless Tobacco: Never Used Alcohol Use Drinks/Week oz/Week Comments Yes 1 Glasses of 0.6 wine Sex Assigned at Date Recorded Not on file as of this encounter Last Filed Vital Signs Vital Sign Reading Time Taken Blood Pressure 110/80 06/17/2018 4:11 PM CDT Pulse 115 06/17/2018 4:11 PM CDT Temperature - - Respiratory Rate - - Oxygen Saturation - - Inhaled Oxygen - - Concentration Weight 71.7 kg (158 lb) 06/17/2018 4:11 PM CDT Height 160 cm (5' 3") 06/17/2018 4:11 PM CDT Body Mass Index 27.99 06/17/2018 4:11 PM CDT in this encounter Instructions * Patient Instructions - Ama Granger MA - 06/17/2018 4:00 PM CDT Stop sotalol tonight. Tomorrow morning start diltiazem 240mg in the morning( two tablets) and 120mg at night (1 tablet) On Friday, start amiodarone 200mg, three times a day with food, and decrease diltiazem to 120mg daily. Call Friday if you haven't heard from us regarding a plan. If you have any questions or concerns, please call Dr. Coulter's nurse at [phone]. It is ok to leave a message at this number and his nurse will return your call. You can also reach us through [employer]. Baseline Amiodarone testing: PFT's with DLCO (pulmonary function test) Labs-CMP, LFT's, TSH Chest xray Eye exam from your eye doctor Chest xray. You can have all these tests done with Dr. Price's office. in this encounter Progress Notes * Vicente Coulter MD - 06/17/2018 4:00 PM CDT Formatting of this note may be different from the original. Date of Service: 06/17/2018 Mary Roth is a 72 y.o. female. HPI I had the pleasure of seeing your patient Mary Roth in the [facility] as a part of the [facility] [place] office today for follow up regarding her Paroxysmal Atrial Fibrillation. She is typically followed and was referred by my friend and colleague Dr. Price , her primary physician relations representative, in [facility] Ms. Roth is an exceptionally pleasant 72 y.o. Female. The past medical history and data below has been reviewed and updated by me with new events for today's visit. 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 Price 2014; [employer] Reveal LinQ Implantable Looping Monitor device implantation 01/03/[address] Price; some orthostatic hypotension with reported syncopeno recurrences; hypertension; Anticoagulation; Hyperlipidemia intolerant of statins with elevated LFTs-->Maintained on Fenofibrate; Spasmodic Dysphonia; Low back pain with interventricular disc disease; nonobstructive carotid artery stenosis by duplex 05/2017Lyly Mon a [id number] score of 3:Female, HTN, and age >65 yo. NOTE--she apparently has had some elevated LFTs when on amiodarone in the past. -- 06/10/18: Pt presented to [facility] ER for tachycardia and dizziness with standing. She reported HRs in the 95-115 bpm range. Was an atypical AFL with 2 : 1 conduction. She received IV diltiazem, then was discharged on Diltiazem 120 qd. -- 06/15/18: Pt saw Dr. Harris and Diltiazem was increased to 120 mg BID and pt was Worked-In to see me today (Dr. Coulter). She STATES she was hospitalized 05/2525 last 06/10/18, and sent home on , 06/11/18 for recurrent atypical AFL with 2: 1 conduction. Details are described above. She states she is continued to feel symptoms of tachypalpitations but not as severe. Her lightheadedness is improved. She does have some shortness of air. She overall however is not feeling "well." She denies any chest discomfort, lightheadedness, near syncope or syncope, PND or orthopnea. FHx, SHx and ROS documented and I have reviewed, with some pertinent features to include: No FHx of premature CAD. She is a Non-Smoker. Most pertinent ROS is included/discussed throughout the note, e.g. HPI and A/P. ECG today documents an atypical atrial flutter with upright flutter waves in leads II and in the right precordial leads with 2: 1 conduction. The atrial flutter cycle length is 260 ms resulting in a ventricular rate of 520 ms. There is some nonspecific T-wave changes as well. Reveal ILR full device check performed with reprogramming which I have extensively reviewed. Changes, if done, as discussed below and is detailed in other dictation/note. She has been in persistent tachycardia since 06/10/18 with 2-1 conduction. Although there are that she clearly has VA VB. 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 Price -- CAD -- Prior Wide-Complex Tachycardia on Flecainide -->No recurrences -- Hypertension -- Anticoagulation -- Hyperlipidemia -- Spasmodic Dysphonia -- Low back pain with interventricular disc disease As noted above Ms. Roth is an currently persistent atypical AFL with 2: 1 conduction with an atrial cycle length of 260 ms resulting in a ventricular cycle length of 520 ms. Diltiazem 120 mg twice daily has been added to her medical regimen in addition to her sotalol 120 mg in the morning and 80 mg in evening. Of note when I saw her in the office on 05/27/17 she was only on the sotalol and her resting heart rate in sinus rhythm was 56 bpm. At this time I had a 60 minute discussion with Ms. Roth and her son regarding options of therapy for rhythm control, etc. I did not feel that a third ablation would yield a cure for her recurrent atrial arrhythmias since she had extensive scarring noted on her prior/redo ablation. Therefore regardless I felt she would need better rhythm control. She is obviously refractory to sotalol. Therefore recommended amiodarone. Of note she reportedly had some increasing LFTs on amiodarone in the past. We will need to monitor these closely. At this time I recommended stopping her sotalol, 3 days later initiating amiodarone, increasing her diltiazem starting today until she starts amiodarone. I then recommended after being on amiodarone for approximately a week proceeding with DC synchronous cardioversion. We discussed the potential side effects and/or toxicities of Amiodarone, including but not limited to: affecting the liver, lungs, thyroid, eyes, and gait. We also discussed their incidence and frequency. We discussed that she would need baseline studies/labs, as well as follow up labs on a regular basis to assess/follow these potential risks. These tests would include, but not be limited to: Pulmonary Function Testing (PFTs) with DLCO, PA and Lateral CXR, LFTs, TFTs, ophthalmology exams, etc. She expressed an understanding of these details, and is agreeable to initiate Amiodarone therapy. HOWEVER, I have significant concerns at the time of cardioversion that she would have marked sinus bradycardia or a markedly prolonged sinus pause since only on sotalol 120 in the morning and 80 at night she had a heart rate in the 50s bpm. THEREFORE, I am going to have her decrease her amiodarone to 400 mg a day, 3 days prior to cardioversion and I will have her stop her diltiazem 3 days prior to the cardioversion as well. We will consider putting in a temporary pacemaker catheter at the time of the cardioversion and perform the cardioversion in the EP lab. I am cautiously optimistic that on 400 mg of amiodarone a day, ONLY, that she will have sinus bradycardia but NOT need a pacemaker. HOWEVER we did discuss that she may ultimately, even sooner than later, needed a dual-chamber pacemaker implantation to allow us to manage any recurrent rapid atrial arrhythmias without worrying about significant symptomatic sinus bradycardia. In fact if she has significant bradycardia after adequate time to recover from her cardioversion she may warrant permanent pacing at that time. Therefore we discussed permanent pacemaker implantation and the risks and details of the procedure. We discussed the procedure of DDDR Pacemaker implantation, along with its associated risks, rationale, options, and benefits in detail with Mary Roth and her son. We discussed a risk of major complications at 2% (predominantly infection) and minor complications at 4%. We discussed the risks to include, but not be limited to: , myocardial ischemia/infarction, stroke, cardiac perforation, lung damage requiring chest tube (pneumothorax), blood clot, bleeding or blood collection requiring blood transfusion or repeat surgery (hematoma), infection, or vascular injury. We also discussed that there is a very low risk that the leads could dislodge overnight require revision/repositioning the following morning. All questions were answered to her as faction. Mary Roth expressed verbal understanding of the procedure, the benefits, and risks. We also discussed that ultimately she may require AV node ablation in addition to permanent pacemaker. Although I may consider having one my partners pursue a third complex redo ablation prior to that time. SEE PLAN BELOW PLAN: --Stop Sotalol --Increase Diltiazem to 240 mg in the morning and 120 mg at night --Continue to monitor heart rate and if heart rate remains above 105 bpm contact our office --On 06/21/18, initiate Amiodarone 200 mg 3 times daily and at that time decrease Diltiazem down to 120 mg daily --Plan Cardioversion after been on Amiodarone for approximately 1 week --3 days prior to cardioversion stop Diltiazem --3 days prior to cardioversion decrease Amiodarone to 400 mg daily --See comments regarding possible temporary pacemaker time of cardioversion --See comments regarding cardioversion in EP lab --May need permanent pacemaker in the futureDDDR --Obtain Amiodarone Baseline Testingto include PFTs with DLCO in [facility] Ms. Roth was educated regarding plan of [...] have scheduled her follow-up with me in 3 months post cardioversion. Detailed PMHx: ~ 2012: Per Pt she thinks her AFIB dates back to ~ 2012. -- 2014: Wide Complex Tachycardia whileon Flecainide-->Flecainide Discontinued and Cardiac Catheterization pursued.-->No recurrent wide- complex tachycardia. --10/30/15: Cardiac catheterization with Dr. Price with nonobstructive disease -- 12/2015: Medtr[employer] Reveal LinQ Implantable Looping Monitor device Implantation by Dr. Price -- 02/2016: AFIB Ablationand reported right-sided CTI ablationat OSH-she Apparently underwent AFIB Ablation by Dr. Kelly in [place], [place] -- Post AFIB Ablation--unclear what antiarrhythmic [...] continued recurrent AFIB despite Multaq therapy. -- 11/24/17: Initial EP Consultation: After lengthy [...] -- 12/11/17: Telephone: Pt was hospitalized at [facility] with AFIB with RVR. Nurse from [facility] called to schedule CTA for ablation. Pt underwent unsuccessful CVRT and Sotalol was increased to 120 mg BID initially and then dose DECREASED to 120 mg in the morning and 80 mg at night for a QTC of 476 ms. Multaq and Metoprolol were reportedly DC'ed during hospitalization. Ablation was scheduled for 01/21 -- 01/01/18: OV (Dr. Coulter): Pt wished to pursue re-do AFIB Ablation -- 01/21/18: ROSIO: LVEF 55%, no IAN thrombus, no significant valvular abnormalities or pericardial effusion noted -- 01/21/18: Limited Echo: normal LV sie with mild concentric LVH -- 01/21/18: RE-DO AFIB RFAby MPE -->resumed Sotalol post procedure. Patient was in an atrial tachycardia/atypical AFL when presenting to the procedure. The cycle length was 360-80 ms. There were small areas of recurrent PV activity in each vein. But these were very small. I did do some ablation around the right anterior antrum of the right superior and right inferior PV as well as a few focal lesions on the anterior wall of the LA extensive mapping was performed. It did not appear to be a left-sided circuit. [...] done in years past was still intact. I do note there was extensive scarring present. -- 03/05/18: OV (Dr. Coulter): Pt was doing exceptionally well after re-do ablation. Continued Sotalol with plan to DC after three months -- 04/15/18: Cardioversion by Dr. Price: Dr. Price described AFL -- 05/06/18: RA was moderately dilated, LA was severely dilated, no discrete pulmonary vein ostial stenosis noted -- 05/27/18: OV (Dr. Coulter): Pt had an episode of atrial fibrillation in March. She was approximately 2 months post ablation at this point --> continued Sotalol. -- 06/10/18: Pt presented to [facility] ER for tachycardia and dizziness with standing. She reported HRs in the 95-115 bpm range. Was an atypical AFL with 2 : 1 conduction. She received IV diltiazem, then was discharged on Diltiazem 120 qd. -- 06/15/18: Pt saw Dr. Harris and Diltiazem was increased to 120 mg BID and pt was scheduled to see MPE. Vitals: 06/17/18 1611 BP: 110/80 Pulse: 115 Weight: 71.7 kg (158 lb) Height: 1.6 m (5' 3") Body mass index is 27.99 kg/m. 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 HENT: Negative. Eyes: Negative. Cardiovascular: Positive for palpitations. Respiratory: Negative. Endocrine: Negative. Hematologic/Lymphatic: Negative. Skin: Negative. Musculoskeletal: Negative. Gastrointestinal: Negative. Genitourinary: [...] carotids are 2+/4+ equal bilaterally. Regular rhythm, but tachy S1, S2. I do not appreciate any significant murmur today. No heaves, thrills or rubs. Musc/Skeletal-Extremities: Without significant peripheral edema. With what appears to be full ROM. Device Site: Implantable looping monitor device site is well-healed.t is alert and oriented to person, place, and time. Psych: Patient does not appear anxious, she appears appropriate, with normal non-pressured speech and what appears to be appropriate judgement Cardiovascular Studies See above Problems Addressed Today No diagnosis found. Current Medications (including today's revisions) alprazolam (XANAX) 1 mg PO tablet Take 1 mg by mouth twice daily. 1 BY MOUTH TWICE A DAY apixaban (ELIQUIS) 5 mg tab tablet Take 5 mg by mouth twice daily. Biotin 1 mg tab Take 1 tablet by mouth daily. busPIRone (BUSPAR) 10 mg tablet Take 1 tablet by mouth twice daily. diltiazem CD (CARDIZEM CD) 120 mg capsule Take 120 mg by mouth twice daily. enalapril (VASOTEC) 20 mg tablet Take 1 tablet by mouth daily. fenofibrate micronized(+) (LOFIBRA) 200 mg capsule Take 200 mg by mouth daily. fish oil- omega 3-DHA/EPA 300/1,000 mg capsule Take 1 capsule by mouth twice daily with meals. magnesium oxide (MAG-OX) 400 mg tablet Take 400 mg by mouth daily. OMEPRAZOLE (PRILOSEC PO) Take 40 mg by mouth daily. POTASSIUM PO Take 1 capsule by mouth daily. pravastatin (PRAVACHOL) 40 mg tablet Take 40 mg by mouth daily. raloxifene (EVISTA) 60 mg tablet Take 60 mg by mouth daily. sertraline (ZOLOFT) 50 mg tablet Take 50 mg by mouth daily. sotalol (BETAPACE) 80 mg tablet 1.5 tablet in morning, 1 tablet in evening vitamin E 400 unit capsule Take 400 Units by mouth daily. in this encounter Plan of Treatment Not on fileas of this encounter Procedures Procedure Name Priority Date/Time Associated Diagnosis Comments ECG-SCAN 06/19/2018 Results for this 10:22 AM CDT procedure are in the results section. ECG-SCAN 06/19/2018 Results for this 10:22 AM CDT procedure are in the results section. in this encounter Results * ECG-SCAN (06/19/2018 10:22 AM) Narrative Performed At Ordered by an unspecified provider. * ECG-SCAN (06/19/2018 10:22 AM) Narrative Performed At Ordered by an unspecified provider. * ECG/QRS (06/17/2018 4:21 PM) QRS DURATION 76 OTHER OUTSIDE LAB Performing Organization Address City/State/Zipcode Phone Number OTHER OUTSIDE LAB in this encounter Visit Diagnoses Diagnosis Paroxysmal atrial fibrillation (HCC) - Primary Atrial fibrillation
--- OUTSIDE RECORDS SUMMARY | 2018-06-22 09:50 | XMS REPORT | Encounter Summary ---
Author Author [facility] Organization [facility] Address Unknown Phone Unavailable Care Team Providers Care Drapery Operator Name Role Phone Silverio Walker MD Unavailable Sung Dunn MD PCP Reason for Visit * Reason Comments Medication Follow-up botox Encounter Details Date Type Department Care Team Description 06/01/2018 Telephone [facility] Silverio Walker MD Medication Follow-up Physicians - ENT [address] (botox) Ortho and Medical [address] [place] [address] [phone] [place] [address] Social History Tobacco Use Types Packs/Day Years Used Date Never Smoker Smokeless Tobacco: Never Used Alcohol Use Drinks/Week oz/Week Comments Yes 1 Glasses of 0.6 wine Sex Assigned at Date Recorded Not on file as of this encounter Miscellaneous Notes * Telephone Encounter - Brielle Raya RN - 06/01/2018 11:14 AM CDT Patient calling to let us know she would like Dr. Walker to use less botox when she comes in for her next injection in August. Patient states she had her injection one month ago; this time, it has taken longer for her voice to come back. She is still breathy, has less volume, and by mid-afternoon, she has to whisper. Advised patient to keep a journal with dates and details of condition of her voice. That way, Dr. Walker will have a better idea of botox dosing for her. Patient voiced understanding and if she has any questions before her next appointment in August, she will call us. in this encounter Plan of Treatment Not on fileas of this encounter Visit Diagnoses Not on filein this encounter
--- OUTSIDE RECORDS SUMMARY | 2018-06-22 09:50 | XMS REPORT | Encounter Summary ---
Author Author [facility] Organization [facility] Address Unknown Phone Unavailable Care Team Providers Care Obstetrical Nurse Name Role Phone Silverio Walker MD Unavailable Sung Dunn MD PCP Reason for Referral * Status Reason Specialty Diagnoses / Referred By Referred To Procedures Contact Contact New Request Procedures Vicente Coulter, REQUEST FOR CARDIOLOGY [address] [place] [address] Encounter Details Date Type Department Care Team Description 06/15/2018 Telephone [facility] Cardiology Alethea Rader RN [facility] [place], [place] [id number] Social History Tobacco Use Types Packs/Day Years Used Date Never Smoker Smokeless Tobacco: Never Used Alcohol Use Drinks/Week oz/Week Comments Yes 1 Glasses of 0.6 wine Sex Assigned at Date Recorded Not on file as of this encounter Miscellaneous Notes * Telephone Encounter - Alethea Rader RN - 06/15/2018 1:36 PM CDT returned call to Maryann. confirmed that we had received records from the ED visit. Dr Harris saw her today and would like for Dr Coulter to see her keith offered 4 pm appt at the [facility] - she will need device check and asked her to come in at 3 pm. states she was started on Cartia XT 120 mg twice daily - med list updated per review of labs in ED her serum K+ was 3.4. will have bmp at the [facility] Lab phone [phone] fax [phone] * Telephone Encounter - Alethea Rader RN - 06/15/2018 1:36 PM CDT ----- Message from Yesy Tovar LPN sent at 06/15/2018 11:41 AM CDT ----- Regarding: MPE- Seen keith VM on triage line from Maryann with Dr. Harris office # [phone]. Said that she was seen in office this am and is having 2 to 1 atrial tach and prolonged QT. He would like her Sotalol regulated and seen keith. Call back to discuss more. in this encounter Plan of Treatment Name Priority Associated Diagnoses Order Schedule BASIC METABOLIC PANEL Routine Atrial tachycardia (HCC) Expected: 2017 (Approximate), Expires: 06/15/2019 as of this encounter Results * DEVICE EVALUATION - ILR (06/17/2018 3:04 PM) Generator Model # [id number] OTHER OUTSIDE LAB Generator Serial # [id number] OTHER OUTSIDE LAB Generator Implnat Date 01/03/16 [...] Dr. Price OTHER OUTSIDE LAB Name Device [employer] OTHER OUTSIDE LAB Transmitter Compatible Known Diagnosed AFib Yes OTHER OUTSIDE LAB On Anticoagulation Yes OTHER OUTSIDE LAB Generator Buffer Inflated Pad [employer] grass biomasstronic OTHER OUTSIDE LAB Narrative Performed At OTHER OUTSIDE LAB In office LINQ check Pt follows with Dr. Price. We do not follow remote. Presenting EGM: Regular tachycardia, appears likely 2:1 Aflutter, V rate 114bpm. Appears pt has been out of rhythm since 06/10/18 Events since last OV check with us on 05/27/18: 11 Tachy #[id number], all on 06/10/18. EGMs show likely AFib/flutter with RVR, occas aberrant beats vs PVC, rates 180s-190sbpm 9 AF #[id number], all 06/10-06/12/18.EGMs show AFib w RVR, V rates 110s-190sbpm. Appears pt has been out of rhythm since 06/10/18 Programming changes made: none Report given to Dr. Coulter. Performing Organization Address City/State/Zipcode Phone Number OTHER OUTSIDE LAB in this encounter Visit Diagnoses Diagnosis Atrial tachycardia (HCC) - Primary Other specified cardiac dysrhythmias
--- OUTSIDE RECORDS SUMMARY | 2018-06-22 09:50 | XMS REPORT | Encounter Summary ---
Author Author [facility] Organization [facility] Address Unknown Phone Unavailable Care Team Providers Care Head Porter Name Role Phone Silverio Walker MD Unavailable Sung Dunn MD PCP Reason for Visit * Reason Comments Records Request 06/10 ER visit at [facility] Encounter Details Date Type Department Care Team Description 06/12/2018 Documentation [facility] Cardiology Costa Zapata, DIANE Records Request (06/10 ER [facility] [place] [facility] 3rd visit at [facility] in [address]) [address] [place] [address] Social History Tobacco Use Types Packs/Day Years Used Date Never Smoker Smokeless Tobacco: Never Used Alcohol Use Drinks/Week oz/Week Comments Yes 1 Glasses of 0.6 wine Sex Assigned at Date Recorded Not on file as of this encounter Progress Notes * Costa Zapata RN - 06/12/2018 3:25 PM CDT Records request faxed to [facility] Medical Records @ 1- [phone]. * Costa Zapata RN - 06/12/2018 3:25 PM CDT Request for the following medical records for purpose of continuity of care: Patient was seen in the Emergency Room on 06/10. Please send us the records from this visit. Please include... Discharge Summary EKGs Lab results Test results Procedure Notes Any other pertinent information Please Fax to: [facility] Card[facility] - [phone] Dr. Coulter Attention: Alethea Rader, RN Thank you in this encounter Plan of Treatment Not on fileas of this encounter Visit Diagnoses Not on filein this encounter
--- OUTSIDE RECORDS SUMMARY | 2018-06-22 09:50 | XMS REPORT | Encounter Summary ---
Author Author [facility] Organization [facility] Address Unknown Phone Unavailable Care Team Providers Care Proofsheet Corrector Name Role Phone Silverio Walker MD Unavailable Sung Dunn MD PCP Reason for Referral * Status Reason Specialty Diagnoses / Referred By Referred To Procedures Contact Contact New Request Diagnoses Vicente oCulter Paroxysmal MD atrial [address] (HCC) [place] [address] [place], [place] [employer] [address] REQUEST FOR Phone: CARDIOLOGY [phone] APPOINTMENT * Status Reason Specialty Diagnoses / Referred By Referred To Procedures Contact Contact New Request Diagnoses Vicente Coulter Paroxysmal MD atrial [address] (HCC) [address] [place], [place] [employer] [address] REQUEST FOR Phone: CARDIOLOGY [phone] APPOINTMENT Reason for Visit * Reason Comments Atrial fibrillation 3 month follow up Atrial Flutter * Status Reason Specialty Diagnoses / Referred By Referred To Procedures Contact Contact New Request Diagnoses Vicente Coulter Paroxysmal MD atrial [address] (HCC) [address] [place], [place] [employer] [address] REQUEST FOR Phone: CARDIOLOGY [phone] APPOINTMENT Encounter Details Date Type Department Care Team Description 05/27/2018 Office Visit [facility] Cardiology Vicente Coulter MD Atrial fibrillation ([address] [facility] [place] [address] month follow up); Atrial fl [address] [place] [address] [place] [address] [phone] Social History Tobacco Use Types Packs/Day Years Used Date Never Smoker Smokeless Tobacco: Never Used Alcohol Use Drinks/Week oz/Week Comments Yes 1 Glasses of 0.6 wine Sex Assigned at Date Recorded Not on file as of this encounter Last Filed Vital Signs Vital Sign Reading Time Taken Blood Pressure 138/80 05/27/2018 10:25 AM CDT Pulse 56 05/27/2018 10:18 AM CDT Temperature - - Respiratory Rate - - Oxygen Saturation - - Inhaled Oxygen - - Concentration Weight 72 kg (158 lb 12.8 oz) 05/27/2018 10:18 AM CDT Height 160 cm (5' 3") 05/27/2018 10:18 AM CDT Body Mass Index 28.13 05/27/2018 10:18 AM CDT in this encounter Instructions * Patient Instructions - Ama Granger MA - 05/27/2018 10:15 AM CDT Return for a follow up clinic visit in 6 months, or sooner for new questions or problems. If you have any questions or concerns, please call Dr. Coulter's nurse at [phone]. It is ok to leave a message at this number and his nurse will return your call. You can also reach us through [employer]. Call if you are having recurrent afib. in this encounter Progress Notes * Vicente Coulter MD - 05/27/2018 10:15 AM CDT Formatting of this note may be different from the original. Date of Service: 05/27/2018 Mary Roth is a 72 y.o. female. HPI I had the pleasure of seeing your patient Mary Roth in the [facility] as a part of the [facility] [place] office today for follow up regarding her Paroxysmal Atrial Fibrillation. She is typically followed and was referred by my friend and colleague Dr. Price , her primary carbonation tester, in [facility]. Ms. Roth is an exceptionally pleasant 72 y.o. Female. The past medical history and data below has been reviewed and updated by me with new events for today's visit. Her PMHx briefly includes:Paroxysmal AFIB S/P Ablationin [place] 02/2016 --> RE-DO RFA (01/21/18); Moderate LA [...] stenosis by duplex 05/2017Dr. Price. Shehas a [id number] score of 3:Female, HTN, and age > [...] underwent AFIB Ablation by Dr. Kelly in [place] -- Post AFIB Ablation--unclear what antiarrhythmic [...] -- 12/11/17: Telephone: Pt was hospitalized at [facility] with AFIB with RVR. Nurse from [facility] called to schedule CTA for ablation. [...] no discrete pulmonary vein ostial stenosis noted She STATES she underwent a cardioversion for recurrent AFIB in March. She states this episode may have been precipitated by the wine she drank at dinner the evening prior to her recurrence. She states that she presented to the ED the next day after she noted her heart rate to be elevated. She was later seen by Dr. Price and underwent cardioversion , as noted above. Dr. Price described AFL Since her cardioversion, she states she has been doing well without any symptoms suggestive of recurrent atrial fibrillation. She states she has recovered from her ablation well. She claims compliance with her medications, including Sotalol. She states she has never been placed on Amiodarone in the past. She denies any bleeding issues-blood in the [...] Low back pain with interventricular disc disease Ms. Roth had an episode of atrial fibrillation in March. She is approximately 2 months post ablation. I am at best cautiously optimistic that her AFIB will be better controlled after her most recent ablation done prior, given that she had extensive scarring. Please refer to my procedure note for greater detail. For now we will continue her sotalol at her current dosing. However she continues to have recurrent AFIB I would like to discontinue the sotalol and a few days later start amiodarone. We discussed that is a possibility briefly. Would not discuss amiodarone therapy extensively today but again that would be the next step in therapy for her going forward. If however she has recurrent documented atrial tachycardia and a third procedure may be an option although my threshold would be very high to take that route. She continues after pulse daily. See plan otherwise as noted below. PLAN: -- We will continue Sotalol -- I asked her to call our office with any new or recurrent symptoms -- We will obtain the records of her May Cardioversion from Dr. Price's office -- Since she is on anticoagulation, I have asked her to monitor for any signs or symptoms of bleeding, including blood in the stool or urine, etc and to contact her PMD if any occurs. Ms. Roth was educated regarding plan of [...] have scheduled her follow-up with me in 6 month(s). Vitals: 05/27/18 1018 05/27/18 1025 BP: 130/80 138/80 Pulse: 56 Weight: 72 kg (158 lb 12.8 oz) Height: 1.6 m (5' 3") Body mass index is 28.13 kg/m. 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 HENT: Negative. Eyes: Negative. Cardiovascular: Negative. Respiratory: Negative. Endocrine: Negative. Hematologic/Lymphatic: Negative. Skin: Negative. Musculoskeletal: Positive for arthritis. Gastrointestinal: Negative. Genitourinary: Negative. Neurological: Positive for tremors. Psychiatric/Behavioral: Negative. Allergic/Immunologic: Positive for environmental allergies. Physical Exam Constitutional: She is in no [...] Cardiovascular Studies ECG today demonstrates sinus bradycardia 56 bpm, anterior T-wave inversion without significant change from prior tracings. QRS duration is 88 ms QTc 456 ms Medtronic Reveal LinQ Implantable Looping Monitor Full device check performed with reprogramming which I have extensively reviewed. Changes, if done, as discussed below and is detailed in other dictation/note. AFIB detected 04/11 lasting for 4.5 hours. Review of the EGMs suggest more of an ATACH/slow atrial flutter with a cycle length in the 320 ms range. I fel the episode she has had were likely persistent from 04/11 until her cardioversion on 04/14. Problems Addressed Today Encounter Diagnoses Name Primary? [...] tablet Take 2.5 mg by mouth daily. fenofibrate micronized(+) (LOFIBRA) 200 [...] M.D. in this encounter Plan of Treatment Name Priority Associated Diagnoses Order Schedule ECG 12-LEAD Routine Paroxysmal atrial Ordered: 05/27/2018 fibrillation (HCC) as of this encounter Results * DEVICE EVALUATION - ILR (05/27/2018 11:56 AM) Generator Model # [id number] OTHER OUTSIDE LAB Generator Serial # [id number] OTHER OUTSIDE LAB Generator Implnat Date 01/03/16 OTHER OUTSIDE LAB Device Implanted By [facility] OTHER OUTSIDE LAB EP Device [...] Dr. Price OTHER OUTSIDE LAB Name Device [employer] OTHER OUTSIDE LAB Transmitter Compatible Known Diagnosed AFib Yes OTHER OUTSIDE LAB On Anticoagulation Yes OTHER OUTSIDE LAB Generator Button Decorating Machine Operator Medtronic OTHER OUTSIDE LAB ILR Symptom Lifetime [...] check.Pt is followed by Dr. Price in [place].We do not do remote. Presenting EGM: SB 56bpm Events since last interrogation 05/05/18: none Reviewed prior events since pt was here on 03/05/18: #[id number] AF events from 04/11/18-04/14/18.4.5hrs on 04/11/18 and then intermittent, 6-50min on 04/12, 04/13 and 04/14.EGMS show likely AFlutter/ATach with V rates avg 97-130bpm.Dr. Coulter thinks pt was likely in Aflutter/Atach with regular V rate, thus undetected AF events. (pt was DCCV on 04/14/18) Programming changes made: none Report given to Dr. Coulter. Performing Organization Address City/State/Zipcode Phone Number OTHER OUTSIDE LAB * ECG/QRS (05/27/2018) QRS DURATION 88 OTHER OUTSIDE LAB Performing Organization Address City/State/Zipcode Phone Number OTHER OUTSIDE LAB in this encounter Visit Diagnoses Diagnosis Cardiac device in situ - Primary Unspecified cardiac device in situ Paroxysmal atrial fibrillation (HCC) Atrial fibrillation
--- OUTSIDE RECORDS SUMMARY | 2018-06-22 09:50 | XMS REPORT | Encounter Summary ---
Author Author [facility] Organization [facility] Address Unknown Phone Unavailable Care Team Providers Care Real Estate Administrator Name Role Phone Silverio Walker MD Unavailable Sung Dunn MD PCP Encounter Details Date Type Department Care Team Description 05/06/2018 [facility] Cardiology Silverio Walker MD Encounter Main [facility] [place] [address] [place] [address] [phone] Social History Tobacco Use Types Packs/Day Years [...] tablet by mouth 12/29/2017 tablet twice daily. fish oil- omega 3-DHA/EPA Take 1 [...] atrial fibrillation (HCC) as of this encounter Progress Notes * Elina Grijalva RN - 05/06/2018 11:18 AM CDT Peripheral IV Insertion Note: Patient Side: left Line Orientation:Antecubital IV Catheter Size: 18G Number of Attempts:1. IV capped and flushed with Normal Saline. IV site without redness, swelling, or pain. New dressing placed. After procedure IV cannula removed intact and hemostasis achieved. in this encounter Plan of Treatment Not on fileas of this encounter Visit Diagnoses Not on filein this encounter
--- OUTSIDE RECORDS SUMMARY | 2018-06-22 09:50 | XMS REPORT | Encounter Summary ---
Author Author [facility] Organization [facility] Address Unknown Phone Unavailable Care Team Providers Care Sr. Media Manager Name Role Phone Silverio Walker MD Unavailable Sung Dunn MD PCP Encounter Details Date Type Department Care Team Description 06/15/2018 Pharmacy Visit [facility] [address] [place] [address] Social History Tobacco Use Types Packs/Day Years Used Date Never Smoker Smokeless Tobacco: Never Used Alcohol Use Drinks/Week oz/Week Comments Yes 1 Glasses of 0.6 wine Sex Assigned at Date Recorded Not on file as of this encounter Plan of Treatment Not on fileas of this encounter Visit Diagnoses Not on filein this encounter
--- OUTSIDE RECORDS SUMMARY | 2018-06-22 09:51 | XMS REPORT | Encounter Summary ---
Author Author [facility] Organization [facility] Address Unknown Phone Unavailable Care Team Providers Care Costume Technician Name Role Phone Silverio Walker MD Unavailable Sung Dunn MD PCP Encounter Details Date Type Department Care Team Description 05/04/2018 Telephone [facility] [address] [place], [place] [id number] Social History Tobacco Use Types Packs/Day Years Used Date Never Smoker Smokeless Tobacco: Never Used Alcohol Use Drinks/Week oz/Week Comments Yes 1 Glasses of 0.6 wine Sex Assigned at Date Recorded Not on file as of this encounter Miscellaneous Notes * Telephone Encounter - Vanesa Flowers RN - 05/04/2018 9:08 AM CDT Called patient to discuss questions. I answered patient's questions to her satisfaction. Patient states that she was cardioverted by Dr. Price's office over . She is seeing Dr. Price today and will request that records be faxed to our office. * Telephone Encounter - Vanesa Flowers RN - 05/04/2018 9:08 AM CDT ----- Message from Yesy Tovar LPN sent at 05/04/2018 8:35 AM CDT ----- Regarding: MPE- appt question VM from patient on triage line. She needs to confirm appointment for Friday at 11:00 am and were to go so she is not late. in this encounter Plan of Treatment Not on fileas of this encounter Visit Diagnoses Not on filein this encounter
--- OUTSIDE RECORDS SUMMARY | 2018-06-22 09:51 | XMS REPORT | Encounter Summary ---
Author Author [facility] Organization [facility] Address Unknown Phone Unavailable Care Team Providers Care Supervisor [address] Name Role Phone Silverio Walker MD Unavailable Sung Dunn MD PCP Reason for Referral * CTA Procedure Status Reason Specialty Diagnoses / Referred By Referred To Procedures Contact Contact No Auth Needed Cardiology Diagnoses Vicente Coulter Bhg Card Nuclear Atrial [facility] fibrillation, [id number] ([facility]) [address] [place], [place] [address] [employer] [id number] Phone: CT CARDIAC STRUCTURE WO/W [phone] CONT * CTA Procedure Status Reason Specialty Diagnoses / Referred By Referred To Procedures Contact Contact No Auth Needed Cardiology Diagnoses Vicente Coulter Bhg Card Nuclear Atrial [facility] fibrillation, [id number] ([facility]) [address] [place], [place] [address] [employer] [id number] Phone: CT CARDIAC STRUCTURE WO/W [phone] CONT * CTA Procedure Status Reason Specialty Diagnoses / Referred By Referred To Procedures Contact Contact New Request Cardiology Diagnoses Vicente Coulter Bhg Card [facility] fibrillation, [id number] (HCC) [place] [address] [place], [place] [address] [employer] [id number] Phone: CT LMTD CHEST W CARDIAC [phone] * CTA Procedure Status Reason Specialty Diagnoses / Referred By Referred To Procedures Contact Contact New Request Cardiology Diagnoses Vicente Coulter Bhg Card Nuclear Atrial [facility] fibrillation, [id number] [facility] ([facility]) [address] [place], [place] [address] [employer] [id number] Phone: CT LMTD CHEST W CARDIAC [phone] Reason for Visit * CTA Procedure Status Reason Specialty Diagnoses / Referred By Referred To Procedures Contact Contact No Auth Needed Cardiology Diagnoses Vicente Coulter Bhg Card Nuclear Atrial [facility] fibrillation, [id number] [facility] ([facility]) [address] [place], [place] [address] [employer] [id number] Phone: CT CARDIAC STRUCTURE WO/W [phone] CONT Encounter Details Date Type Department Care Team Description 05/06/2018 Hospital [facility] Vicente Coulter MD Encounter Hospital Radiology [address] [facility] 2nd fl [address] [place] [address] [place] [address] [phone] Social History Tobacco Use Types Packs/Day Years [...] on fileas of this encounter Results * CT CARDIAC STRUCTURE WO/W CONT (05/06/2018 [...] opinions expressed in this report Finalized by OBDULIO WALTON M.D. on 05/07/2018 1:13 PM. Dictated by Randal Mukherjee M.D. on 05/07/2018 9:46 AM. Narrative Performed At [facility] CARDIAC STRUCTURE WO/W CONT Primary reading physician: Obdulio Walton MD Secondary reading physician: Randal Mukherjee MD Exam date: 05/06/2018 Study number: [id number] INDICATIONS: Atrial fibrillation, Ms. Franz is a 72-year-old female with a past medical history of paroxysmal atrial fibrillation status post ablation in [place] in 02/2016. She underwent a redo ablation [...] CARDIAC STRUCTURE WO/W CONT Primary reading physician: Obdulio Walton MD Secondary reading physician: Randal Mukherjee MD Exam date: 05/06/2018 Study number: [id number] INDICATIONS: Atrial fibrillation, Ms. Franz is a 72-year-old female with a past medical history of paroxysmal atrial fibrillation status post ablation in [place] in 02/2016. She underwent a redo ablation [...] opinions expressed in this report Finalized by OBDULIO WLATON M.D. on 05/07/2018 1:13 PM. Dictated by Randal Mukherjee M.D. on 05/07/2018 9:46 AM. Performing Organization Address City[facility] Phone Number [facility] * CT LMTD CHEST W CARDIAC (05/06/2018 [...] on 05/06/2018 4:03 PM. Dictated by Hector Foramn M.D. on 05/06/2018 4:01 PM. Performing Organization Address [facility] Phone Number [facility] RES[facility] in this encounter Visit Diagnoses Diagnosis Atrial fibrillation, unspecified type (HCC) Administered Medications Medication Order MAR Action Action Date Dose Rate Site iopamidol 370 (ISOVUE-370) injection 100 Given 05/06/2018 100 mL mL 11:45 CDT 100 mL, Intravenous, ONCE, 1 dose, Fri05/06/18 at 1145, NOTE: This is a HIGH ALERT Medication. sodium chloride PF 0.9% injection 100 mL Given 05/06/2018 100 mL 100 mL, Intravenous, ONCE, 1 dose, Wed 11:45 CDT 05/06/18 at 1145, Intra-procedure (IR) in this encounter
--- OUTSIDE RECORDS SUMMARY | 2018-06-22 09:51 | XMS REPORT | Encounter Summary ---
Author Author [facility] Organization [facility] Address Unknown Phone Unavailable Care Team Providers Care Hand Plate Stacker Name Role Phone Silverio Walker MD Unavailable Sung Dunn MD PCP Reason for Visit * Reason Comments Test/procedure Wants to schedule Cardiac CT scan Encounter Details Date Type Department Care Team Description 04/07/2018 Telephone [facility] Cardiology Marli Logan RN Test/ procedure (Wants to [facility] [place] [facility] [phone] scan) [place] [address] [place] [address] Social History Tobacco Use Types Packs/Day Years [...] for around May 06. Call back is [phone] in this encounter Plan of Treatment Not on fileas of this encounter Visit Diagnoses Not on filein this encounter
--- OUTSIDE RECORDS SUMMARY | 2018-06-22 09:51 | XMS REPORT | Encounter Summary ---
Author Author [facility] Organization [facility] Address Unknown Phone Unavailable Care Team Providers Care Open Developer Operator Name Role Phone Silverio Walker MD Unavailable Sung Dunn MD PCP Reason for Visit * Reason Comments Procedure Botox Encounter Details Date Type Department Care Team Description 05/06/2018 Procedure visit [facility] Silverio Walker MD Dysphonia (Primary Dx); Physicians - ENT [address] Adductor spasmodic [facility] [address] dysphonia with tremor [address] [place] [address] [phone] [place] [address] Social History Tobacco Use Types Packs/Day Years Used Date Never Smoker Smokeless Tobacco: Never Used Alcohol Use Drinks/Week oz/Week Comments Yes 1 Glasses of 0.6 wine Sex Assigned at Date Recorded Not on file as of this encounter Last Filed Vital Signs Vital Sign Reading Time Taken Blood Pressure 131/84 05/06/2018 12:57 PM CDT Pulse 71 05/06/2018 12:57 PM CDT Temperature - - Respiratory Rate - - Oxygen Saturation - - Inhaled Oxygen - - Concentration Weight 70.3 kg (155 lb) 05/06/2018 12:57 PM CDT Height - - Body Mass Index 27.46 05/06/2018 12:57 PM CDT in this encounter Instructions * Patient Instructions - Silverio Walker MD - 05/06/2018 1:00 PM CDT Monitor the changes in your voice. Note any side effects (swallowing difficulty or excessive breathy voice), when they start and how long they last. Also note improvement in the voice. Note when it starts and how long it lasts. This will be important for future injections. in this encounter Progress Notes * Daisy Dunn MA,CCC-DROP WIRE OPERATOR - 05/06/2018 1:00 PM CDT At the request of the physician, I assisted with this procedure. in this encounter Procedure Notes * Silverio Walker MD - 05/06/2018 1:00 PM CDT Associated Order(s): BOTOX (ONABOTULINUMTOXINA) [...] today. in this encounter Plan of Treatment Not on fileas of this encounter Procedures Procedure Name Priority Date/Time Associated Diagnosis Comments BOTOX Routine 05/06/2018 Dysphonia Results for this (ONABOTULINUMTOXINA) 1:00 PM CDT Adductor spasmodic procedure are in the dysphonia with tremor results section. in this encounter Results * BOTOX (ONABOTULINUMTOXINA) (05/06/2018 1:00 PM) Narrative [...] with 5 units today. Performing Organization Address [facility]State[facility] Phone Number [facility] in this encounter Visit Diagnoses Diagnosis Dysphonia - Primary Adductor spasmodic dysphonia with tremor Other diseases of larynx
--- OUTSIDE RECORDS SUMMARY | 2018-06-22 09:51 | XMS REPORT | Encounter Summary ---
Author Author [facility] Organization [facility] Address Unknown Phone Unavailable Care Team Providers Care City Wellness Coordinator Name Role Phone Silverio Walker MD Unavailable Sung Dunn MD PCP Reason for Visit * Reason Comments Other post ablation CCTA - needs to be at Encounter Details Date Type Department Care Team Description 03/30/2018 Telephone [facility] Cardiology Jaye Martínez RN Other (post ablation CCTA [facility] [id number] - needs to be at ) [address] [place] [address] Social History Tobacco Use Types [...] regarding the best location to travel so ([facility] [place] office * Telephone Encounter - Jaye Martínez [...] great. in this encounter Plan of Treatment Not on fileas of this encounter Visit Diagnoses Not on filein this encounter
--- OUTSIDE RECORDS SUMMARY | 2018-06-22 09:51 | XMS REPORT | Encounter Summary ---
Author Author [facility] Organization [facility] Address Unknown Phone Unavailable Care Team Providers Care Track Fitter Name Role Phone Silverio Walker MD Unavailable Sung Dunn MD PCP Encounter Details Date Type Department Care Team Description 03/30/2018 [facility] Elina Grijalva, RN [facility] [place] [address] Social History Tobacco Use Types Packs/Day Years [...] number. in this encounter Plan of Treatment Not on fileas of this encounter Visit Diagnoses Not on filein this encounter
--- OUTSIDE RECORDS SUMMARY | 2018-06-22 09:51 | XMS REPORT | Encounter Summary ---
Author Author [facility] Organization [facility] Address Unknown Phone Unavailable Care Team Providers Care Hospital Chaplain Name Role Phone Silverio Walker MD Unavailable Sung Dunn MD PCP Reason for Visit * Reason Comments Lab Results BMP Encounter Details Date Type Department Care Team Description 05/05/2018 Documentation [facility] Kelsie Constantino RN Lab Results (BMP) [address] [place] [address] Social History Tobacco Use Types Packs/Day Years Used Date Never Smoker Smokeless Tobacco: Never Used Alcohol Use Drinks/Week oz/Week Comments Yes 1 Glasses of 0.6 wine Sex Assigned at Date Recorded Not on file as of this encounter Progress Notes * Kelsie Constantino, RN - 05/05/2018 1:02 PM CDT Labs are to be reviewed at the patients upcoming office visit. DR in this encounter Plan of Treatment Not on fileas of this encounter Results * BASIC METABOLIC PANEL (05/04/2018) Sodium 133 [facility] Potassium 4.1 [facility] Chloride [facility] CO2 [facility] Blood Urea Nitrogen 17 [facility] Creatinine 0.8 [facility] Glucose [facility] Calcium [facility] eGFR Non 73 [facility] eGFR [facility] Anion Gap [facility] Specimen Blood - Blood Narrative Performed At Performing Organization Address City/State/Zipcode Phone Number [facility] [address] [place] [address] [phone] in this encounter Visit Diagnoses Diagnosis Atrial fibrillation, unspecified type (HCC)
--- OUTSIDE RECORDS SUMMARY | 2018-06-22 09:51 | XMS REPORT | Encounter Summary ---
Author Author [facility] Organization [facility] Address Unknown Phone Unavailable Care Team Providers Care Mineral Surveying Technician Name Role Phone Silverio Walker MD Unavailable Sung Dunn MD PCP Encounter Details Date Type Department Care Team Description 03/25/2018 Procedure Pass [facility] Radiology [facility] [address] [place] [address] Social History Tobacco Use Types Packs/Day Years Used Date Never Smoker Smokeless Tobacco: Never Used Alcohol Use Drinks/Week oz/Week Comments Yes 1 Glasses of 0.6 wine Sex Assigned at Date Recorded Not on file as of this encounter Plan of Treatment Not on fileas of this encounter Visit Diagnoses Not on filein this encounter
--- OUTSIDE RECORDS SUMMARY | 2018-06-22 09:51 | XMS REPORT | Encounter Summary ---
Author Author [facility] Organization [facility] Address Unknown Phone Unavailable Care Team Providers Care Qa Auditor Name Role Phone Silverio Walker MD Unavailable Sung Dunn MD PCP Encounter Details Date Type Department Care Team Description 03/25/2018 Procedure Pass [facility] Radiology [facility] [address] [place] [address] Social History Tobacco Use Types Packs/Day Years Used Date Never Smoker Smokeless Tobacco: Never Used Alcohol Use Drinks/Week oz/Week Comments Yes 1 Glasses of 0.6 wine Sex Assigned at Date Recorded Not on file as of this encounter Plan of Treatment Not on fileas of this encounter Visit Diagnoses Not on filein this encounter
--- OUTSIDE RECORDS SUMMARY | 2018-06-22 09:51 | XMS REPORT | Encounter Summary ---
Author Author [facility] Organization [facility] Address Unknown Phone Unavailable Care Team Providers Care Mri Ct Tech Name Role Phone Silverio Walker MD Unavailable Sung Dunn MD PCP Encounter Details Date Type Department Care Team Description 04/07/2018 Orders Only [facility] Gloria Verma RN Atrial fibrillation, [facility]600 unspecified type (HCC) [address] (Primary Dx) [place] [address] Social History Tobacco Use Types [...] City/State/Zipcode Phone Number [facility] [address] [place] [address] 10A in this encounter Visit Diagnoses Diagnosis Atrial fibrillation, unspecified type (HCC) - Primary
--- OUTSIDE RECORDS SUMMARY | 2018-06-22 09:51 | XMS REPORT | Encounter Summary ---
Author Author [facility] Organization [facility] Address Unknown Phone Unavailable Care Team Providers Care Surgical Services Director Name Role Phone Silverio Walker MD Unavailable Sung Dunn MD PCP Reason for Visit * Reason Comments Other CCTA requested, will call pt to schedule Encounter Details Date Type Department Care Team Description 04/07/2018 Telephone [facility] Cardiology Jaye Martínez RN Other (CCTA requested, [place] [address] will call pt to schedule) [address] [place] [address] Social History Tobacco Use Types [...] for around May 06. Call back is [phone] in this encounter Plan of Treatment Not on fileas of this encounter Visit Diagnoses Not on filein this encounter
--- OUTSIDE RECORDS SUMMARY | 2018-06-22 09:52 | XMS REPORT | Encounter Summary ---
Author Author [facility] Organization [facility] Address Unknown Phone Unavailable Care Team Providers Care Cataract Lens Generator Name Role Phone Silverio Walker MD Unavailable Sung Dunn MD PCP Reason for Visit * Reason Comments Other Post ablation cta needed in April Encounter Details Date Type Department Care Team Description 03/25/2018 Telephone [facility] Marielena Gómez RN Other ( Post ablation cta [facility] [id number] needed in April) [address] [place] [address] Social History Tobacco Use Types [...] From: Meg Ledbetter RN Sent: 03/25/2018 To: Joao Nurse Ep Subject: 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
--- OUTSIDE RECORDS SUMMARY | 2018-06-22 09:53 | XMS REPORT | Encounter Summary ---
Author Author [facility] Organization [facility] Address Unknown Phone Unavailable Care Team Providers Care Floor Framer Name Role Phone Silverio Walker MD Unavailable Sung Dunn MD PCP Reason for Referral * CTA Procedure Status Reason Specialty Diagnoses / Referred By Referred To Procedures Contact Contact No Auth Needed Cardiology Diagnoses Vicente Coulter Bhg Card Nuclear Atrial [facility] fibrillation, [id number] (HCC) [place] [address] [place], [place] [address] rocedures [address] Phone: CT CARDIAC STRUCTURE WO/W [phone] CONT * CTA Procedure Status Reason Specialty Diagnoses / Referred By Referred To Procedures Contact Contact New Request Cardiology Diagnoses Vicente Coulter Bhg Card Nuclear Atrial [facility] fibrillation, [id number] type [address] (HCC) [place] [address] [place], [place] [address] rocedures [address] Phone: CT LMTD CHEST W CARDIAC [phone] Encounter Details Date Type Department Care Team Description 03/25/2018 Orders Only [facility] Marielena Gómez RN Atrial fibrillation, Main [facility] [id number] unspecified type (HCC) [address] (Primary Dx) [place] [address] Social History Tobacco Use Types Packs/Day Years [...] paroxysmal atrial fibrillation status post ablation in [place] in 02/2016. She underwent a redo ablation [...] paroxysmal atrial fibrillation status post ablation in [place] in 02/2016. She underwent a redo ablation [...] Address City/State/Zipcode Phone Number [facility] RESULTS in this encounter Visit Diagnoses Diagnosis Atrial fibrillation, unspecified type (HCC) - Primary
--- OUTSIDE RECORDS SUMMARY | 2018-06-22 09:55 | XMS REPORT | Continuity of Care Document ---
Author Author [facility] Organization [facility] Address Unknown Phone Unavailable Care Team Providers Care Scientist Electronics Name Role Phone Al Thomas MD PP Insurance Providers Payer Name Policy Number Subscriber Name Relationship Medicare A And B [id number] Mary Case 18 Self / Same As Patient Medicare Other [id number] Mary Case 18 Self / Same As Patient Advance Directives Directive Response Recorded Date Advanced Directives Unknown 12/05/13 7: 31pm Problems Medical Problem Onset Date Cellulitis 12/05/13 Allergies, Adverse Reactions, Alerts Allergen Type Severity Reaction Last Updated No Known Drug Allergies 12/05/13 Medications Medication Dose Units Route Sig Qty Days Cefdinir 300 Mg PO BID 20 Oxycodone Hcl/Acetaminophen (Endocet 5-325 Tablet) 1 - 2 Each PO PRN Potassium Chloride (Klor-Con) 20 Meq PO DAILY Rivaroxaban (Xarelto) 10 Mg PO DAILY Lisinopril/Hydrochlorothiazide (Lisinopril-Hctz 20-12.5 Mg Tab) 1 Each PO DAILY Omeprazole (Prilosec) 40 Mg PO DAILY Aripiprazole (Abilify) 2.5 Mg PO DAILY Escitalopram Oxalate (Lexapro) 20 Mg PO DAILY Pravastatin Sodium (Pravachol) 40 Mg PO HS Alprazolam (Xanax) 1 Mg PO BID Amlodipine Besylate (Norvasc) 5 Mg PO DAILY Meloxicam (Mobic) 15 Mg PO DAILY Immunizations Name Given Type Date Influenza Vaccine Received if Current 09/26/13 H Response Recorded Date/Time Status not known Unknown Results No Known Relevant Diagnostic Tests, Laboratory Data and/or Discharge Summary. Procedures Procedure Code [place] [address] 11/15/13 COMPLETE CBC W/AUTO DIFF WBC 49156 ROUTINE VENIPUNCTURE 05379 11/15/13 Encounters Encounter Location Date/Time Departed Emergency Room [facility] 12/05/13 7:30pm
--- OUTSIDE RECORDS SUMMARY | 2018-06-22 10:06 | XMS REPORT | Encounter Summary ---
Author Author [facility] Organization [facility] Address Unknown Phone Unavailable Care Team Providers Care Skiver Blockers Name Role Phone Silverio Walker MD Unavailable Sung Dunn MD PCP Reason for Visit * Reason Comments Erroneous duplicate encounter encounter-disregard Encounter Details Date Type Department Care Team Description 06/19/2018 Telephone [facility] Cardiology Aliya Haskins, DIANE Erroneous [address] encounter-disregard [address] (duplicate encounter) [place] [address] Social History Tobacco Use Types Packs/Day Years Used Date Never Smoker Smokeless Tobacco: Never Used Alcohol Use Drinks/Week oz/Week Comments Yes 1 Glasses of 0.6 wine Sex Assigned at Date Recorded Not on file as of this encounter Plan of Treatment Not on fileas of this encounter Visit Diagnoses Not on filein this encounter
--- OUTSIDE RECORDS SUMMARY | 2018-06-22 10:06 | XMS REPORT | Encounter Summary ---
Author Author [facility] Organization [facility] Address Unknown Phone Unavailable Care Team Providers Care Mechanical Maintenance Name Role Phone Silverio Walker MD Unavailable Sung Dunn MD PCP Encounter Details Date Type Department Care Team Description 06/19/2018 Telephone [facility] Cardiology Jeanine Dempsey RN [facility] Home Bldg[address] [place] [address] [place] [address] Social History Tobacco Use Types [...]
--- OUTSIDE RECORDS SUMMARY | 2018-06-22 10:06 | XMS REPORT | Encounter Summary ---
Author Author [facility] Organization [facility] Address Unknown Phone Unavailable Care Team Providers Care Griddle Attendant Name Role Phone Silverio Walker MD Unavailable Sung Dunn MD PCP Reason for Visit * Reason Comments Amiodarone Monitoring to start Amiodarone 06/21/18 Encounter Details Date Type Department Care Team Description 06/21/2018 Documentation [facility] Mervat Haskins, DIANE Amiodarone Monitoring (to [address] start Amiodarone 06/21/18 [place] [address] ) [phone] Social History Tobacco Use Types Packs/Day Years [...] results found for: AST, ALT, TSH, TSH3G, YALAD7F Pt had recent TSH , Free T4 04/2018 . I requested results Shona Vanessa MD [address] [place] [address] [place] [address] I requested recent lft's from pt's [...]
--- OUTSIDE RECORDS SUMMARY | 2018-06-22 10:06 | XMS REPORT | Encounter Summary ---
Author Author [facility] Organization [facility] Address Unknown Phone Unavailable Care Team Providers Care Tailor Helper Name Role Phone Silverio Walker MD Unavailable Sung Dunn MD PCP Encounter Details Date Type Department Care Team Description 06/17/2018 [facility] Cardiology Vicente Coulter MD Arrived Encounter [facility] [address] [place] [address] [place] [address] [phone] Social History Tobacco Use Types Packs/Day Years [...] LNQ11 OTHER OUTSIDE LAB Generator Serial # [id number] OTHER OUTSIDE LAB Generator Implnat Date 01/03/16 OTHER OUTSIDE LAB Device Implanted By [facility] OTHER OUTSIDE LAB EP Device Followed [...] Dr. Price OTHER OUTSIDE LAB Name Device [employer] OTHER OUTSIDE LAB Transmitter Compatible Known Diagnosed AFib Yes OTHER OUTSIDE LAB On Anticoagulation Yes OTHER OUTSIDE LAB Generator Music Supervisor [employer] OTHER OUTSIDE LAB Narrative Performed At OTHER OUTSIDE LAB In office LINQ check Pt follows with Dr. Price. We do not follow remote. Presenting EGM: Regular tachycardia, appears likely 2:1 Aflutter, V rate 114bpm. Appears pt has been out of rhythm since 06/10/18 Events since last OV check with us on 05/27/18: 11 Tachy #[id number], all on 06/10/18. EGMs show likely AFib/flutter with RVR, occas aberrant beats vs PVC, rates 180s-190sbpm 9 AF #[id number], all 06/10-06/12/18.EGMs show AFib w RVR, V rates 110s-190sbpm. Appears pt has been out of rhythm since 06/10/18 Programming changes made: none Report given to Dr. Coulter. Performing Organization Address City/State/Zipcode Phone Number OTHER OUTSIDE LAB in this encounter Visit Diagnoses Diagnosis Atrial tachycardia (HCC) Other specified cardiac dysrhythmias
--- OUTSIDE RECORDS SUMMARY | 2018-06-22 10:06 | XMS REPORT | Encounter Summary ---
Author Author [facility] Organization [facility] Address Unknown Phone Unavailable Care Team Providers Care Marketing Automation Analyst Name Role Phone Silverio Walker MD Unavailable Sung Dunn MD PCP Reason for Visit * Reason Comments Medication Follow-up review medication regimen Encounter Details Date Type Department Care Team Description 06/19/2018 Telephone [facility] Cardiology Aliya Haskins, unhairer Follow-up [address] (review medication [address] regimen) [place] [address] Social History Tobacco Use Types [...] to finalize plans. Jeanine Dempsey RN to Mt 06/19/18 11:08 AM Placed call to patient [...] her to call today. Call back is [phone] in this encounter Plan of Treatment Not on fileas of this encounter Visit Diagnoses Not on filein this encounter
--- OUTSIDE RECORDS SUMMARY | 2018-06-22 10:06 | XMS REPORT | Clinical Summary ---
Author Author [facility] Organization [facility] Address Unknown Phone Unavailable Care Team Providers Care Stuffer Name Role Phone Silverio Walker MD Unavailable Sung Dunn MD PCP Source Comments Some departments are not documenting in the electronic medical record. If you do not see the information that you expected, contact Release of Information in the Health Information Management department at [phone] for further assistance in locating additional records.[facility] Allergies Active Allergy Reactions Severity [...] Telephone Cardiology Katharine Crum RN Other (in [place], [place]) 06/22/2018 Pharmacy Visit 06/21/2018 Documentation Cardiology Mervat Haskins RN Amiodarone Monitoring (to start Amiodarone 06/21/18 ) 06/19/2018 Telephone Cardiology Aliya Haskins RN Erroneous encounter-disregard (duplicate encounter) 06/19/2018 Telephone Cardiology Aliya Haskins RN Medication Follow-up (review medication regimen) 06/19/2018 Telephone Cardiology Jeanine Dempsey RN 06/17/2018 Office Visit Cardiology Vicente Coulter MD Atrial fibrillation; Atrial Flutter 06/17/2018 [facility] Cardiology Vicente Coulter MD Arrived Encounter 06/16/2018 Documentation Cardiology Alethea Rader RN Labs Only (06/15 BMP) 06/15/2018 Pharmacy Visit 06/15/2018 Pharmacy Visit 06/15/2018 Telephone Cardiology Alethea Rader RN 06/15/2018 Telephone Cardiology Alethea Rader RN 06/12/2018 Documentation Cardiology Costa Zapata RN Records Request (06/10 ER visit at [facility] in [place]) 06/12/2018 Telephone Cardiology Costa Zapata RN Medical Question ( "heart issues") 06/01/2018 Telephone Otolaryngology Silverio Walker MD Medication Follow-up (botox) 05/27/2018 [facility] Cardiology Vicente Coulter MD Encounter 05/27/2018 Office Visit Cardiology Vicente Coulter MD Atrial fibrillation (3 month follow up); Atrial Flutter 05/27/2018 Orders Only Cardiology Ama Granger MA 05/06/2018 Procedure visit Otolaryngology Silverio Walker MD Dysphonia (Primary Dx); Adductor spasmodic dysphonia with tremor 05/06/2018 [facility] Cardiology Silverio Walker MD Encounter 05/06/2018 [facility] Radiology Vicente Coulter MD Encounter 05/05/2018 Documentation [...] 36.9 C (98.5 F) 01/22/2018 5:00 AM PROTOHISTORIAN Respiratory Rate - - Oxygen Saturation 97% 01/21/2018 11:00 PM PROTOHISTORIAN Inhaled Oxygen - - Concentration Weight 71.7 [...] VACCINE 08/17/2018 09/24/2017 Implants Implanted Type Area Performance Management Consultant Device Expiration Model / Identifier Date Serial [...] LNQ11 OTHER OUTSIDE LAB Generator Serial # [id number] OTHER OUTSIDE LAB Generator Implnat Date 01/03/16 OTHER OUTSIDE LAB Device Implanted By [facility] OTHER OUTSIDE LAB EP Device Followed [...] Dr. Price OTHER OUTSIDE LAB Name Device [employer] OTHER OUTSIDE LAB Transmitter Compatible Known Diagnosed AFib Yes OTHER OUTSIDE LAB On Anticoagulation Yes OTHER OUTSIDE LAB Generator Performance Management Consultant [employer] OTHER OUTSIDE LAB Narrative Performed At OTHER OUTSIDE LAB In office LINQ check Pt follows with Dr. Price. We do not follow remote. Presenting EGM: Regular tachycardia, appears likely 2:1 Aflutter, V rate 114bpm. Appears pt has been out of rhythm since 06/10/18 Events since last OV check with us on 05/27/18: 11 Tachy #[id number], all on 06/10/18. EGMs show likely AFib/flutter with RVR, occas aberrant beats vs PVC, rates 180s-190sbpm 9 AF #[id number], all 06/10-06/12/18.EGMs show AFib w RVR, V rates 110s-190sbpm. Appears pt has been out of rhythm since 06/10/18 Programming changes made: none Report given to Dr. Coulter. Performing Organization Address City/[facility]/Zipcode Phone Number OTHER OUTSIDE LAB * BASIC [...] Specimen Blood - Blood Performing Organization Address City/[facility] Phone Number OTHER OUTSIDE LAB * BOTOX [...] with 5 units today. Performing Organization Address City/[facility] Phone Number IN CLINIC * CT LMTD [...] STRUCTURE WO/W CONT Primary reading physician: Anastasia Wnag MD Secondary reading physician: Randal Mukherjee MD Exam date: 05/06/2018 Study number: [id number] INDICATIONS: Atrial fibrillation, Ms. Franz is a 72-year-old female with a past medical history of paroxysmal atrial fibrillation status post ablation in [place] in 02/2016. She underwent a redo ablation [...] paroxysmal atrial fibrillation status post ablation in [place] in 02/2016. She underwent a redo ablation [...]
--- OUTSIDE RECORDS SUMMARY | 2018-06-22 10:07 | XMS REPORT | Encounter Summary ---
Author Author [facility] Organization [facility] Address Unknown Phone Unavailable Care Team Providers Care Cnc Specialist Name Role Phone Silverio Walker MD Unavailable Sung Dunn MD PCP Encounter Details Date Type Department Care Team Description 06/15/2018 Pharmacy Visit [facility] [address] [place] [address] Social History Tobacco Use Types Packs/Day Years Used Date Never Smoker Smokeless Tobacco: Never Used Alcohol Use Drinks/Week oz/Week Comments Yes 1 Glasses of 0.6 wine Sex Assigned at Date Recorded Not on file as of this encounter Plan of Treatment Not on fileas of this encounter Visit Diagnoses Not on filein this encounter
--- OUTSIDE RECORDS SUMMARY | 2018-06-22 10:07 | XMS REPORT | Encounter Summary ---
Author Author [facility] Organization [facility] Address Unknown Phone Unavailable Care Team Providers Care Outfitter Cabin Name Role Phone Silverio Walker MD Unavailable Sung Dunn MD PCP Reason for Visit * Reason Comments Atrial fibrillation Atrial Flutter Encounter Details Date Type Department Care Team Description 06/17/2018 Office Visit [facility] Cardiology Vicente Coulter MD Atrial fibrillation; [facility] [place] [facility] Atrial Flutter [address] [address] [place] [address] [place] [address] [phone] Social History Tobacco Use Types Packs/Day Years [...] concerns, please call Dr. Coulter's nurse at [phone]. It is ok to leave a message at this number and his nurse will return your call. You can also reach us through [facility]. Baseline Amiodarone testing: PFT's with DLCO (pulmonary [...] Center as a part of the [facility] [place] office today for follow up regarding her Paroxysmal Atrial Fibrillation. She is typically followed and was referred by my friend and colleague Dr. Price , her primary insurance claims adjuster, in [facility]. Ms. Roth is an exceptionally pleasant [...] artery stenosis by duplex 05/2017Lyly Mon a [id number] score of 3:Female, HTN, and age >65 yo. NOTE--she apparently has had some elevated LFTs when on amiodarone in the past. -- 06/10/18: Pt presented to [facility] ER for tachycardia and dizziness with [...] Baseline Testingto include PFTs with DLCO in [facility] Ms. Roth was educated regarding plan of [...] underwent AFIB Ablation by Dr. Kelly in [place], [place] -- Post AFIB Ablation--unclear what antiarrhythmic [...] -- 12/11/17: Telephone: Pt was hospitalized at [facility] with AFIB with RVR. Nurse from [facility] called to schedule CTA for [...] continued Sotalol. -- 06/10/18: Pt presented to [facility] ER for tachycardia and dizziness with [...]
--- OUTSIDE RECORDS SUMMARY | 2018-06-22 10:07 | XMS REPORT | Encounter Summary ---
Author Author [facility] Organization [facility] Address Unknown Phone Unavailable Care Team Providers Care Park Activities Coordinator Name Role Phone Silverio Walker MD Unavailable Sung Dunn MD PCP Reason for Visit * Reason Comments Labs Only 06/15 BMP Encounter Details Date Type Department Care Team Description 06/16/2018 Documentation [facility] Alethea Rader, DIANE Labs Only (06/15 BMP) [place] [address] [address] [place] [address] Social History Tobacco Use Types Packs/Day Years [...]
--- OUTSIDE RECORDS SUMMARY | 2018-06-22 10:08 | XMS REPORT | Encounter Summary ---
Author Author [facility] Organization [facility] Address Unknown Phone Unavailable Care Team Providers Care Console Assembler Name Role Phone Silverio Walker MD Unavailable Sung Dunn MD PCP Encounter Details Date Type Department Care Team Description 06/15/2018 Telephone [facility] Cardiology Alethea Rader, DIANE [facility] [place] [address] Social History Tobacco Use Types [...] 11:41 AM CDT ----- Regarding: MPE- Seen kieth VM on triage line from Maryann with Dr. Harris office # [phone]. Said that she was seen in office this am and is having 2 to 1 atrial tach and prolonged QT. He would like her Sotalol regulated and seen keith. Call back to discuss more. in this encounter Plan of Treatment Not on fileas of this encounter Visit Diagnoses Not on filein this encounter
--- OUTSIDE RECORDS SUMMARY | 2018-06-22 10:08 | XMS REPORT | Encounter Summary ---
Author Author [facility] Organization [facility] Address Unknown Phone Unavailable Care Team Providers Care Gas Appliance Adjuster Name Role Phone Silverio Walker MD Unavailable Sung Dunn MD PCP Encounter Details Date Type Department Care Team Description 06/15/2018 Pharmacy Visit [facility] [address] [place] [address] Social History Tobacco Use Types Packs/Day Years Used Date Never Smoker Smokeless Tobacco: Never Used Alcohol Use Drinks/Week oz/Week Comments Yes 1 Glasses of 0.6 wine Sex Assigned at Date Recorded Not on file as of this encounter Plan of Treatment Not on fileas of this encounter Visit Diagnoses Not on filein this encounter
--- OUTSIDE RECORDS SUMMARY | 2018-06-22 10:09 | XMS REPORT | Encounter Summary ---
Author Author [facility] Organization [facility] Address Unknown Phone Unavailable Care Team Providers Care Retail Presentation Specialist Name Role Phone Silverio Walker MD Unavailable Sung Dunn MD PCP Reason for Referral * Status Reason Specialty Diagnoses / Referred By Referred To Procedures Contact Contact New Request Procedures Vicente Coulter, REQUEST FOR CARDIOLOGY [address] [place] [address] Encounter Details Date Type Department Care Team Description 06/15/2018 Telephone [facility] Cardiology Alethea Rader RN [facility] [place], [place] [id number] Social History Tobacco Use Types Packs/Day Years [...] keith offered 4 pm appt at the [facility] - she will need device check and asked her to come in at 3 pm. states she was started on Cartia XT 120 mg twice daily - med list updated per review of labs in ED her serum K+ was 3.4. will have bmp at the [facility] phone [phone] fax [phone] * Telephone Encounter - Alethea Rader RN - 06/15/2018 1:36 PM CDT ----- Message from Yesy Tovar LPN sent at 06/15/2018 11:41 AM CDT ----- Regarding: MPE- Seen keith VM on triage line from Maryann with Dr. Harris office # [phone]. Said that she was seen in office [...] LNQ11 OTHER OUTSIDE LAB Generator Serial # [id number] OTHER OUTSIDE LAB Generator Implnat Date 01/03/16 OTHER OUTSIDE LAB Device Implanted By [facility] OTHER OUTSIDE LAB EP Device Followed [...] Dr. Price OTHER OUTSIDE LAB Name Device [place] [employer] OTHER OUTSIDE LAB Transmitter Compatible Known Diagnosed AFib Yes OTHER OUTSIDE LAB On Anticoagulation Yes OTHER OUTSIDE LAB Generator Die Cast Operator LEAPIN [employer] OTHER OUTSIDE LAB Narrative Performed At OTHER OUTSIDE LAB In office LINQ check Pt follows with Dr. Price. We do not follow remote. Presenting EGM: Regular tachycardia, appears likely 2:1 Aflutter, V rate 114bpm. Appears pt has been out of rhythm since 06/10/18 Events since last OV check with us on 05/27/18: 11 Tachy #[id number], all on 06/10/18. EGMs show likely AFib/flutter with RVR, occas aberrant beats vs PVC, rates 180s-190sbpm 9 AF #[id number], all 06/10-06/12/18.EGMs show AFib w RVR, V rates 110s-190sbpm. Appears pt has been out of rhythm since 06/10/18 Programming changes made: none Report given to Dr. Coulter. Performing Organization Address City/State/Zipcode Phone Number OTHER OUTSIDE LAB in this encounter Visit Diagnoses Diagnosis Atrial tachycardia (HCC) - Primary Other specified cardiac dysrhythmias
--- OUTSIDE RECORDS SUMMARY | 2018-06-22 10:10 | XMS REPORT | Encounter Summary ---
Author Author [facility] Organization [facility] Address Unknown Phone Unavailable Care Team Providers Care Lock Setter Name Role Phone Silverio Walker MD Unavailable Sung Dunn MD PCP Reason for Visit * Reason Comments Records Request 06/10 ER visit at [facility] Encounter Details Date Type Department Care Team Description 06/12/2018 Documentation [facility] Card[facility] Costa Zapata, DIANE Records Request (06/10 ER [facility] [place] [facility] 3rd visit at [facility] in [address]) [address] [place] [address] Social History Tobacco Use Types Packs/Day Years Used Date Never Smoker Smokeless Tobacco: Never Used Alcohol Use Drinks/Week oz/Week Comments Yes 1 Glasses of 0.6 wine Sex Assigned at Date Recorded Not on file as of this encounter Progress Notes * Costa Zapata RN - 06/12/2018 3:25 PM CDT Records request faxed to [facility] Medical Records @ 1- [phone]. * Costa Zapata RN - 06/12/2018 3:25 PM CDT Request for the following medical records for purpose of continuity of care: Patient was seen in the Emergency Room on 06/10. Please send us the records from this visit. Please include... Discharge Summary EKGs Lab results Test results Procedure Notes Any other pertinent information Please Fax to: [facility] Cardiology - [phone] Dr. Coulter Attention: Alethea Rader, RN Thank you in this encounter Plan of Treatment Not on fileas of this encounter Visit Diagnoses Not on filein this encounter
--- OUTSIDE RECORDS SUMMARY | 2018-06-22 10:10 | XMS REPORT | Encounter Summary ---
Author Author [facility] Organization [facility] Address Unknown Phone Unavailable Care Team Providers Care Power Digger Operator Name Role Phone Silverio Walker MD Unavailable Sung Dunn MD PCP Reason for Visit * Reason Comments Medical Question "heart issues" Encounter Details Date Type Department Care Team Description 06/12/2018 Telephone [facility] Cardiology Costa Zapata RN Medical Question ("heart [facility] [place] [facility] 3rd issues") [facility] [address] [address] [place] [address] Social History Tobacco Use Types [...] patient Message Contents Yesy Tovar LPN P [facility] Nurse Ep from patient on triage line returning or call. Returned call to patient. She states that Friday (06/10) evening she developed tachycardia & dizziness with standing. She went to [facility] ER; HR 140s-150s. She received IV diltiazem, [...] states she has an OV with an BREAD DUMPER at Dr. Price's office on Friday (06/15). [...] that Dr. Price should be privy to [facility]'s last OV note explaining the plan of [...] She confirmed that they had the 05/27 [facility] OV notes. She states the patient does not have an OV with an BREAD DUMPER on Friday, rather, she has an OV with Dr. Harris. She stated she would send us patient's ILR check from today; EP RightFax number given. Will request records from [employer]. Will route to Alethea for f/u. * Telephone Encounter - Costa Zapata RN - 06/12/2018 11:24 AM CDT Returned call to patient - [facility] for CB. * Telephone Encounter - [...]
--- OUTSIDE RECORDS SUMMARY | 2018-06-22 10:11 | XMS REPORT | Encounter Summary ---
Author Author [facility] Organization [facility] Address Unknown Phone Unavailable Care Team Providers Care Assistant Men'S Soccer Coach Name Role Phone Silverio Walker MD Unavailable Sung Dunn MD PCP Reason for Visit * Reason Comments Medication Follow-up botox Encounter Details Date Type Department Care Team Description 06/01/2018 Telephone [facility] Silverio Walker MD Medication Follow-up Physicians - ENT [address] (botox) Ortho and Medical [address] [place] [address] [phone] [place] [address] Social History Tobacco Use Types [...]
--- OUTSIDE RECORDS SUMMARY | 2018-06-22 10:12 | XMS REPORT | Encounter Summary ---
Author Author [facility] Organization [facility] Address Unknown Phone Unavailable Care Team Providers Care Computer Repairer Name Role Phone Silverio Walker MD Unavailable Sung Dunn MD PCP Encounter Details Date Type Department Care Team Description 05/27/2018 [facility] Cardiology Vicente Coulter MD Encounter [facility] [place] [facility] [address] [address] [place] [address] [place] [address] [phone] Social History Tobacco Use Types Packs/Day Years [...] LNQ11 OTHER OUTSIDE LAB Generator Serial # [id number] OTHER OUTSIDE LAB Generator Implnat Date 01/03/16 OTHER OUTSIDE LAB Device Implanted By [facility] OTHER OUTSIDE LAB EP Device [...] Dr. Price OTHER OUTSIDE LAB Name Device [place] [employer] OTHER OUTSIDE LAB Transmitter Compatible Known Diagnosed AFib Yes OTHER OUTSIDE LAB On Anticoagulation Yes OTHER OUTSIDE LAB Generator Strip Cutter Med[employer] OTHER OUTSIDE LAB ILR Symptom Lifetime [...] check.Pt is followed by Dr. Price in [place].We do not do remote. Presenting EGM: SB 56bpm Events since last interrogation 05/05/18: none Reviewed prior events since pt was here on 03/05/18: #[id number] AF events from 04/11/18-04/14/18.4.5hrs on 04/11/18 and [...]
--- OUTSIDE RECORDS SUMMARY | 2018-06-22 10:12 | XMS REPORT | Encounter Summary ---
Author Author [facility] Organization [facility] Address Unknown Phone Unavailable Care Team Providers Care Archeologist Classical Name Role Phone Silverio Walker MD Unavailable Sung Dunn MD PCP Encounter Details Date Type Department Care Team Description 05/27/2018 Orders Only [facility] Ama Granger MA [facility] [place] [facility] [place] [address] [address] [address] [place] [address] Social History Tobacco Use Types Packs/Day Years Used Date Never Smoker Smokeless Tobacco: Never Used Alcohol Use Drinks/Week oz/Week Comments Yes 1 Glasses of 0.6 wine Sex Assigned at Date Recorded Not on file as of this encounter Plan of Treatment Not on fileas of this encounter Visit Diagnoses Not on filein this encounter
--- OUTSIDE RECORDS SUMMARY | 2018-06-22 10:12 | XMS REPORT | Encounter Summary ---
Author Author [facility] Organization [facility] Address Unknown Phone Unavailable Care Team Providers Care Compactor Driver Name Role Phone Silverio Walker MD Unavailable Sung Dunn MD PCP Encounter Details Date Type Department Care Team Description 05/06/2018 [facility] Cardiology Silverio Walker MD Encounter [facility] [place] [address] [place] [address] [phone] Social History Tobacco Use Types Packs/Day Years [...]
--- OUTSIDE RECORDS SUMMARY | 2018-06-22 10:12 | XMS REPORT | Encounter Summary ---
Author Author [facility] Organization [facility] Address Unknown Phone Unavailable Care Team Providers Care Front Desk Assistant Name Role Phone Silverio Walker MD Unavailable Sung Dunn MD PCP Reason for Referral * Status Reason Specialty Diagnoses / Referred By Referred To Procedures Contact Contact New Request Diagnoses Vicente Coulter Paroxysmal MD atrial [address] (HCC) [address] [place] [employer] [address] REQUEST FOR Phone: CARDIOLOGY [phone] APPOINTMENT * Status Reason Specialty Diagnoses / Referred By Referred To Procedures Contact Contact New Request Diagnoses Vicente Coulter Paroxysmal MD atrial [address] (HCC) [address] [place] [employer] [address] REQUEST FOR Phone: CARDIOLOGY [phone] APPOINTMENT Reason for Visit * Reason Comments Atrial fibrillation 3 month follow up Atrial Flutter * Status Reason Specialty Diagnoses / Referred By Referred To Procedures Contact Contact New Request Diagnoses Vicente Coulter Paroxysmal MD atrial [address] (HCC) [address] [place] [employer] [address] REQUEST FOR Phone: CARDIOLOGY [phone] APPOINTMENT Encounter Details Date Type Department Care Team Description 05/27/2018 Office Visit [facility] Card[facility] Vicente Coulter MD Atrial fibrillation (3 [facility] [place] [facility] month follow up); Atrial fl [address] [place] [address] [place] [address] [phone] Social History Tobacco Use Types Packs/Day Years [...] concerns, please call Dr. Coulter's nurse at [phone]. It is ok to leave a message at this number and his nurse will return your call. You can also reach us through [employer]. Call if you are having recurrent afib. in this encounter Progress Notes * Vicente Coulter MD - 05/27/2018 10:15 AM CDT Formatting of this note may be different from the original. Date of Service: 05/27/2018 Mary Roth is a 72 y.o. female. HPI I had the pleasure of seeing your patient Mary Roth in the [facility] as a part of the [facility] Cardiology [place] office today for follow up regarding her Paroxysmal Atrial Fibrillation. She is typically followed and was referred by my friend and colleague Dr. Price , her primary rn case manager hospice, in [facility]. Ms. Roth is an exceptionally pleasant [...] stenosis by duplex 05/2017Dr. Price. Shehas a [id number] score of 3:Female, HTN, and age > [...] underwent AFIB Ablation by Dr. Kelly in [place] -- Post AFIB Ablation--unclear what antiarrhythmic [...] -- 12/11/17: Telephone: Pt was hospitalized at [facility] with AFIB with RVR. Nurse from [facility] called to schedule CTA for ablation. [...] LNQ11 OTHER OUTSIDE LAB Generator Serial # [id number] OTHER OUTSIDE LAB Generator Implnat Date 01/03/16 OTHER OUTSIDE LAB Device Implanted By [facility] OTHER OUTSIDE LAB EP Device [...] Dr. Price OTHER OUTSIDE LAB Name Device [place] [employer] OTHER OUTSIDE LAB Transmitter Compatible Known Diagnosed AFib Yes OTHER OUTSIDE LAB On Anticoagulation Yes OTHER OUTSIDE LAB Generator [employer] OTHER OUTSIDE LAB ILR Symptom Lifetime [...] check.Pt is followed by Dr. Price in [place].We do not do remote. Presenting EGM: SB 56bpm Events since last interrogation 05/05/18: none Reviewed prior events since pt was here on 03/05/18: #[id number] AF events from 04/11/18-04/14/18.4.5hrs on 04/11/18 and [...]
--- OUTSIDE RECORDS SUMMARY | 2018-06-22 10:15 | XMS REPORT | Encounter Summary ---
Author Author [facility] Organization [facility] Address Unknown Phone Unavailable Care Team Providers Care Air Pollution Control Engineer Name Role Phone Silverio Walker MD Unavailable Sung Dunn MD PCP Reason for Referral * CTA Procedure Status Reason Specialty Diagnoses / Referred By Referred To Procedures Contact Contact No Auth Needed Cardiology Diagnoses Vicente Coulter Bhg Card Nuclear Atrial [facility] fibrillation, [id number] ([facility]) [address] [place], [place] [address] [employer] [id number] Phone: CT CARDIAC STRUCTURE WO/W [phone] CONT * CTA Procedure Status Reason Specialty Diagnoses / Referred By Referred To Procedures Contact Contact No Auth Needed Cardiology Diagnoses Vicente Coulter Bhg Card Nuclear Atrial [facility] fibrillation, [id number] ([facility]) [address] [place], [place] [address] [employer] [id number] Phone: CT CARDIAC STRUCTURE WO/W [phone] CONT * CTA Procedure Status Reason Specialty Diagnoses / Referred By Referred To Procedures Contact Contact New Request Cardiology Diagnoses Vicente Coulter Bhg Card Nuclear [facility] fibrillation, [id number] type [address] (HCC) [address] [place], [place] [address] [employer] [id number] Phone: CT LMTD CHEST W CARDIAC [phone] * CTA Procedure Status Reason Specialty Diagnoses / Referred By Referred To Procedures Contact Contact New Request Cardiology Diagnoses Vicente Coulter Bhg Card Nuclear Atrial [facility] fibrillation, [id number] [facility] ([facility]) [address] [place], [place] [address] [employer] [id number] Phone: CT LMTD CHEST W CARDIAC [phone] Reason for Visit * CTA Procedure Status Reason Specialty Diagnoses / Referred By Referred To Procedures Contact Contact No Auth Needed Cardiology Diagnoses Vicente Coulter Bhg Card Nuclear Atrial [facility] fibrillation, [id number] [facility] ([facility]) [address] [place], [place] [address] [employer] [id number] Phone: CT CARDIAC STRUCTURE WO/W [phone] CONT Encounter Details Date Type Department Care Team Description 05/06/2018 Hospital [facility] Vicente Coulter MD Encounter Hospital Radiology 39[address] [facility] 2nd fl [address] [place] [address] [place] [address] [phone] Social History Tobacco Use Types Packs/Day Years [...] paroxysmal atrial fibrillation status post ablation in [place] in 02/2016. She underwent a redo ablation [...] paroxysmal atrial fibrillation status post ablation in [place] in 02/2016. She underwent a redo ablation [...] on 05/07/2018 9:46 AM. Performing Organization Address City/State[facility] Phone Number [facility] RAD RESULTS * CT [...] on 05/06/2018 4:01 PM. Performing Organization Address [facility] Phone Number [facility] RAD RESULTS in this [...]
--- OUTSIDE RECORDS SUMMARY | 2018-06-22 10:15 | XMS REPORT | Encounter Summary ---
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
--- OUTSIDE RECORDS SUMMARY | 2018-06-22 10:16 | XMS REPORT | Encounter Summary ---
Author Author [facility] Organization [facility] Address Unknown Phone Unavailable Care Team Providers Care Computer Software Engineer Name Role Phone Silverio Walker MD Unavailable Sung Dunn MD PCP Encounter Details Date Type Department Care Team Description 05/04/2018 Telephone [facility] Card[facility] [address] [place], [place] [address] Social History Tobacco Use Types Packs/Day Years [...]
--- OUTSIDE RECORDS SUMMARY | 2018-06-22 10:16 | XMS REPORT | Encounter Summary ---
Author Author [facility] Organization [facility] Address Unknown Phone Unavailable Care Team Providers Care Managed Care Director Name Role Phone Silverio Walker MD Unavailable Sung Dunn MD PCP Reason for Visit * Reason Comments Lab Results BMP Encounter Details Date Type Department Care Team Description 05/05/2018 Documentation [facility] Kelsie Constantino RN Lab Results (BMP) [address] [place] [address] Social History Tobacco Use Types [...] City/State/Zipcode Phone Number [facility] [place] [address] [place] [address] 10A in this encounter Visit Diagnoses Diagnosis Atrial fibrillation, unspecified type (HCC)
--- OUTSIDE RECORDS SUMMARY | 2018-06-22 10:16 | XMS REPORT | Encounter Summary ---
Author Author [facility] Organization [facility] Address Unknown Phone Unavailable Care Team Providers Care Critical Care Rn Name Role Phone Silverio Walker MD Unavailable Sung Dunn MD PCP Encounter Details Date Type Department Care Team Description 03/25/2018 Procedure Pass [facility] Radiology [facility] 2nd fl [address] [place] [address] Social History Tobacco Use Types Packs/Day Years Used Date Never Smoker Smokeless Tobacco: Never Used Alcohol Use Drinks/Week oz/Week Comments Yes 1 Glasses of 0.6 wine Sex Assigned at Date Recorded Not on file as of this encounter Plan of Treatment Not on fileas of this encounter Visit Diagnoses Not on filein this encounter
--- OUTSIDE RECORDS SUMMARY | 2018-06-22 10:16 | XMS REPORT | Encounter Summary ---
Author Author [facility] Organization [facility] Address Unknown Phone Unavailable Care Team Providers Care Research And Development Engineer Name Role Phone Silverio Walker MD Unavailable Sung Dunn MD PCP Encounter Details Date Type Department Care Team Description 03/25/2018 Procedure Pass [facility] Radiology [facility] [address]nd fl [address] [place] [address] Social History Tobacco Use Types Packs/Day Years Used Date Never Smoker Smokeless Tobacco: Never Used Alcohol Use Drinks/Week oz/Week Comments Yes 1 Glasses of 0.6 wine Sex Assigned at Date Recorded Not on file as of this encounter Plan of Treatment Not on fileas of this encounter Visit Diagnoses Not on filein this encounter
--- OUTSIDE RECORDS SUMMARY | 2018-06-22 10:17 | XMS REPORT | Encounter Summary ---
Author Author [facility] Organization [facility] Address Unknown Phone Unavailable Care Team Providers Care Fishing Hand Name Role Phone Silverio Walker MD Unavailable Sung Dunn MD PCP Encounter Details Date Type Department Care Team Description 04/07/2018 Orders Only [facility] Gloria Verma RN Atrial fibrillation, [facility]600 unspecified type (HCC) [address] (Primary Dx) [place] [address] Social History Tobacco Use Types [...] City/State/Zipcode Phone Number [facility] [place] [address] [place] [address] 10A in this encounter Visit Diagnoses Diagnosis Atrial fibrillation, unspecified type (HCC) - Primary
--- OUTSIDE RECORDS SUMMARY | 2018-06-22 10:19 | XMS REPORT | Encounter Summary ---
Author Author [facility] Organization [facility] Address Unknown Phone Unavailable Care Team Providers Care Shake Out Worker Name Role Phone Silverio Walker MD Unavailable Sung Dunn MD PCP Reason for Visit * Reason Comments Other CCTA requested, will call pt to schedule Encounter Details Date Type Department Care Team Description 04/07/2018 Telephone [facility] Cardiology Jaye Martínez RN Other (CCTA requested, [place] [address] will call pt to schedule) [address] [place] [address] Social History Tobacco Use Types [...] for around May 06. Call back is [phone] in this encounter Plan of Treatment Not on fileas of this encounter Visit Diagnoses Not on filein this encounter
--- OUTSIDE RECORDS SUMMARY | 2018-06-22 10:20 | XMS REPORT | Encounter Summary ---
Author Author [facility] Organization [facility] Address Unknown Phone Unavailable Care Team Providers Care Gang Plank Workman Name Role Phone Silverio Walker MD Unavailable Sung Dunn MD PCP Reason for Visit * Reason Comments Test/procedure Wants to schedule Cardiac CT scan Encounter Details Date Type Department Care Team Description 04/07/2018 Telephone Merged With [facility] Cardiology Marli Logan RN Test/ procedure (Wants to [facility] [place] [facility] [phone] scan) [address] [id number] [place] [address] Social History Tobacco Use Types Packs/Day Years [...] for around May 06. Call back is [phone] in this encounter Plan of Treatment Not on fileas of this encounter Visit Diagnoses Not on filein this encounter
--- OUTSIDE RECORDS SUMMARY | 2018-06-22 10:20 | XMS REPORT | Encounter Summary ---
Author Author [facility] Organization [facility] Address Unknown Phone Unavailable Care Team Providers Care Life Advisor Name Role Phone Silverio Walker MD Unavailable Sung Dunn MD PCP Reason for Visit * Reason Comments Other post ablation CCTA - needs to be at Encounter Details Date Type Department Care Team Description 03/30/2018 Telephone [facility] Cardiology Jaye Martínez RN Other (post ablation CCTA [facility] [id number] - needs to be at ) [address] [place] [address] Social History Tobacco Use Types [...] regarding the best location to travel so ([facility] office * Telephone Encounter - Jaye Martínez [...]
--- OUTSIDE RECORDS SUMMARY | 2018-06-22 10:21 | XMS REPORT | Encounter Summary ---
Author Author [facility] Organization [facility] Address Unknown Phone Unavailable Care Team Providers Care Director Plans Name Role Phone Silverio Walker MD Unavailable Sung Dunn MD PCP Encounter Details Date Type Department Care Team Description 03/30/2018 Documentation [facility] Elina Grijalva, RN [facility] [place] [address] Social History Tobacco Use Types Packs/Day Years [...]
--- OUTSIDE RECORDS SUMMARY | 2018-06-22 10:22 | XMS REPORT | Encounter Summary ---
Author Author [facility] Organization [facility] Address Unknown Phone Unavailable Care Team Providers Care Clinical Nursing Manager Name Role Phone Silverio Walker MD Unavailable Sung Dunn MD PCP Reason for Visit * Reason Comments Other Post ablation cta needed in April Encounter Details Date Type Department Care Team Description 03/25/2018 Telephone [facility] Cardiology Marielena Gómez RN Other ( Post ablation cta [facility] [id number] needed in April) [address] [place] [address] Social History Tobacco Use Types [...]
--- OUTSIDE RECORDS SUMMARY | 2018-06-22 10:25 | XMS REPORT | Encounter Summary ---
Author Author [facility] Organization [facility] Address Unknown Phone Unavailable Care Team Providers Care Chucking Machine Operator Name Role Phone Silverio Walker MD Unavailable Sung Dunn MD PCP Reason for Referral * CTA Procedure Status Reason Specialty Diagnoses / Referred By Referred To Procedures Contact Contact No Auth Needed Cardiology Diagnoses Vicente Coulter Bhg Card Nuclear Atrial [facility] fibrillation, [id number] (HCC) [place] [address] [place] [address] rocedures [id number] Phone: CT CARDIAC STRUCTURE WO/W [phone] CONT * CTA Procedure Status Reason Specialty Diagnoses / Referred By Referred To Procedures Contact Contact New Request Cardiology Diagnoses Vicente Coulter Bhg Card Nuclear Atrial [facility] fibrillation, [id number] (HCC) [place] [address] [place], [place] [address] rocedures [id number] Phone: CT LMTD CHEST W CARDIAC [phone] Encounter Details Date Type Department Care Team Description 03/25/2018 Orders Only [facility] Marielena Gómez RN Atrial fibrillation, Main [facility] [id number] unspecified type (HCC) [address] (Primary Dx) [place] [address] Social History Tobacco Use Types Packs/Day Years [...] paroxysmal atrial fibrillation status post ablation in [place] in 02/2016. She underwent a redo ablation [...] paroxysmal atrial fibrillation status post ablation in [place] in 02/2016. She underwent a redo ablation [...]
--- NOTE | 2018-06-22 11:03 | Cardioversion ---
Cardioversion PROCEDURE PHYSICIAN: René Price DATE OF PROCEDURE: 06/22/18 DIRECT EXTERNAL ELECTRICAL CARDIOVERSION: Indications: Atrial flutter with rapid ventricular rate Preoperative diagnoses: Atrial Fibrillation with rapid ventricular rate Postoperative diagnosis: Sinus rhythm, Successful Electrical Cardioversion Anesthesia: By Anesthesia services Complications: None Procedure Details: The patient was brought the medical laboratory scientist after informed consent was taken, all the risks and complications were explained including the risk of stroke. Electrical cardioversion was carried out with anesthesia support with propofol. 200 joules of synchronized shock was delivered through external patches which promptly restored sinus rhythm. The patient tolerated the procedure well. Conclusions: Successful DC cardioversion and terminating atrial flutter RENÉ PRICE MD Jun 22, 2018 11:02
[2018-06-22] MEDS: DILTIAZEM 120 MG (CARDIZEM CD) CAP PO SCH ×2 (11:20→21:25)
--- NOTE | 2018-06-22 12:06 | Anesthesia-Procedure Note ---
Procedures/Interventions Procedure Start/Stop/Diagnosis Date of Procedure: Jun 22, 2018 Start Time: 10:30 Referring Physician: Dee Brief History AFIB w/ RVR Stop Time: 10:38 ROSIO/Cardioversion Anesthesia Type: mac ASA Class: 2 Medications Called to laborer concrete plant to provide sedation for cardioversion. Explained to patient, brief history obtained, allergies verified. Pt wishes to proceed. Propofol 80mg IV given in total. Cardioversion performed. See nurses notes for vital signs and details. Pt maintained patent airway, and regular respiratory rate throughout, vital signs remained stable. Care transferred back to laborer powerhouse staff. Monitors and Equipment: BP Cuff - Right, Continuous EKG, End Tidal CO2, IV, Pulse Oximeter SURESH VERNON CRNA Jun 22, 2018 12:06
[2018-06-22] MEDS ORDERED: ACETAMINOPHEN 325 MG TABLET PO PRN (17:15)
[2018-06-22] MEDS: AMIODARONE 200 MG (CORDARONE) TAB PO SCH (21:25)
[2018-06-22] MEDS: ALPRAZolam 1 MG (XANAX) TAB PO SCH (21:25)
[2018-06-22] MEDS: OMEGA 3 (FISH OIL) 1000 MG CAP PO SCH (21:25)
[2018-06-22] MEDS ORDERED: NITROGLYCERIN 2% OINT 1 GM UNIT DOSE PACKET ONE ×2 (21:47→21:48)
[2018-06-22] MEDS ORDERED: hydrALAZINE (APESOLINE) 20 MG/ML VIAL ONE (23:03)
[2018-06-22] MEDS ORDERED: busPIRone 10 MG (BUSPAR) TAB ONE (23:41)
[2018-06-22] MEDS: busPIRone 10 MG (BUSPAR) TAB PO SCH (23:47)
[2018-06-23] VITALS (8 sets, daily range): BP systolic 110–135; BP diastolic 72–82
[2018-06-23] MEDS: NS IV 1000 ML 1,000 ML IV SCH (02:16)
[2018-06-23 04:24] LABS: HEMOGLOBIN 9.7 G/DL (11.5-16.0); MEAN PLATELET VOLUME 9.6 FL (7.4-10.4); RED BLOOD COUNT 3.28 10^6/uL (4.35-5.85); RED CELL DISTRIBUTION WIDTH 13.5 % (10.0-14.5); WHITE BLOOD COUNT 5.1 10^3/uL (4.3-11.0)
[2018-06-23 04:44] LABS: ALANINE AMINOTRANSFERASE 13 U/L (0-55); ALBUMIN 3.8 GM/DL (3.2-4.5); ALKALINE PHOSPHATASE 42 U/L (40-136); BILIRUBIN,TOTAL 0.3 MG/DL (0.1-1.0); BUN/CREATININE RATIO 13; CALCIUM 8.8 MG/DL (8.5-10.1); CARBON DIOXIDE 22 MMOL/L (21-32); CHLORIDE 113 MMOL/L (98-107); CREATININE SERUM 0.67 MG/DL (0.60-1.30); GFR ESTIMATED > 60; GLUCOSE 85 MG/DL (70-105); POTASSIUM 3.4 MMOL/L (3.6-5.0); SODIUM 142 MMOL/L (135-145); TOTAL PROTEIN 6.3 GM/DL (6.4-8.2)
[2018-06-23] MEDS ORDERED: PANTOPRAZOLE 40 MG (PROTONIX) TAB PO SCH (07:00)
[2018-06-23] MEDS ORDERED: DILT120C82 PO (07:11)
[2018-06-23] MEDS ORDERED: AMIO200T4 PO (07:11)
--- NOTE | 2018-06-23 07:15 | Cardiology Discharge Summary ---
Diagnosis/Chief Complaint Date of Admission Jun 22, 2018 at 10:51 Date of Discharge Admission Diagnosis Atrial flutter Tachycardia Hypotension Dizziness Palpitation Discharge Diagnosis Chronic atrial flutter with rapid ventricular response Tachycardia Hypotension Palpitation Dizziness Chief Complaint/HPI Chief Complaint/HPI 73 years old lady with extensive history of atrial fibrillation and flutter, underwent multiple ablation procedure, was resistant to multiple medications. She was started on amiodarone in addition to the Cardizem, noted that she felt lightheaded, continue to be tachycardic but borderline hypotensive. Came into the emergency room complaining of lightheadedness and palpitation with tachycardia with a heart rate 120-130. Patient was started on Cardizem drip without improvement in her heart rate. She is still tachycardic at this time. Denied active chest pain. Denied any syncope or near syncopal episodes. Denied any claudication. I reviewed the record and her latest visit with Dr. Coulter,and considering proceeding with electrical cardioversion if patient did not convert to sinus rhythm, we might need to use temporary pacemaker if needed. Discharge Summary Hospital Course Hospital Course Atrial flutter with rapid ventricular response, history of atrial fibrillation, intolerant to flecainide with wide-complex tachycardia, had ablation done by Dr. Moran in [place] in February 2016, another ablation done by Dr. Coulter in January 2018, was intolerant to sotalol with severe bradycardia. Had electrical cardioversion March 2018, returned with atrial flutter with 2-1 conduction, started on Cardizem drip without improvement in her heart rate, blood pressure has been borderline low. Discussed with her the management plan, I will start IV loading with amiodarone, she started on oral amiodarone and this morning. Continue on Cardizem drip and planning for possible electrical cardioversion with possibility of temporary pacemaker or permanent pacemaker implantation if needed. Electrical cardioversion was done, patient converted to sinus rhythm, she was monitored and did not have any further episodes of bradycardia or tachycardia, had frequent atrial and ventricular premature contractions, I will continue on oral amiodarone and continue on Cardizem. Previous intolerance to amiodarone with elevated liver enzymes which will be monitored closely Nonobstructive coronary artery disease per cardiac catheterization done on October 30, 2015. Continue to monitor [id number] score is 3, yearly risk of stroke without oral anticoagulation is 3.2 percent which is considered high risk for stroke, maintained on Eliquis. Did not miss any doses of Eliquis. Continue to monitor Nonsustained ventricular tachycardia, multiple episodes of wide-complex tachycardia appeared to be nonsustained, patient was on flecainide at that time , cardiac catheterization was done in October 2015 and it was normal. No recurrence since discontinuation of flecainide. Continue to monitor Hypertension, borderline hypotensive at this time. Continue to monitor blood pressure Hyperlipidemia, continue to monitor lipids History of intolerance to amiodarone secondary to elevated LFTs, restarting amiodarone and monitoring liver function tests closely Gastroesophageal reflux disease-continue current medication. Mild bilateral carotid stenosis, last ultrasound was done in May 2017, continue to monitor Hyperthyroidism, followed and manged by Dr Vanessa in [place] [facility] Laboratory Tests 06/21/18 15:30: Red Blood Count 3.71L, Hemoglobin 11.1L, Hematocrit 33L, Prothrombin Time 15.5H , Activated Partial Thromboplast Time 37H, Sodium Level 130L, Blood Urea Nitrogen 19H, Glucose Level 108H 06/23/18 04:10: Red Blood Count 3.28L, Hemoglobin 9.7L, Hematocrit 30L, Potassium Level 3.4L, Chloride Level 113H, Total Protein 6.3L Procedures None. Discharge Physical Examination Allergies: Coded Allergies: Sulfa (Sulfonamide Antibiotics) (Verified Allergy, Severe, HIVES, 11/14/17 ) Tetracyclines (Verified Allergy, Unknown, HIVES, 06/21/18) amoxicillin (Verified Allergy, Unknown, hives, 11/09/16) clavulanic acid (Verified Allergy, Unknown, hives, 11/09/16) penicillin G (Verified Allergy, Unknown, HIVES, 06/21/18) Vitals & I&Os Vital Signs Date Time Temp Pulse Resp B/P (MAP) Pulse Ox O2 Delivery O2 Flow Rate FiO2 06/23/18 06:00 66 17 129/78 (95) 95 Room Air 06/23/18 04:00 97.7 06/21/18 16:56 21 General Appearance: Alert, Oriented X3, Cooperative, No Acute Distress HEENT: Atraumatic, PERRLA Respiratory: Clear to Auscultation, Normal Air Movement Cardiovascular: Regular Rate, Normal S1, Normal S2, No Murmurs Abdominal: Normal Bowel Sounds, Soft, No Tenderness, No Hepatosplenomegaly, No Masses Extremities: No Clubbing, No Cyanosis, No Edema, Normal Pulses, No Tenderness/ Swelling Skin: No Rashes, No Breakdown, No Significant Lesion Neuro: Normal Gait, Normal Speech, Strength at 5/5 X4 Ext, Normal Tone, Sensation Intact, Cranial Nerves 3-12 NL, Reflexes 2+ Psych/Mental Status: Mental Status NL, Mood NL Discharge Home Medications Reviewed and agree with Discharge Medication list on patient's Discharge Instruction sheet Instructions to Patient/Family Please see electronic discharge instructions given to patient. Clinical Quality Measures Admission Status Admission Status: Inpatient Order (span 2 midnights) Reason for Inpatient Admission: Atrial flutter, electrical cardioversion, amiodarone drip, tachycardia, history of severe bradycardia. DVT/VTE Risk/Contraindication: Risk Factor Score Per Nursin RFS Level Per Nursing on Admit: 2=Moderate RENÉ GR MD Jun 23, 2018 07:15
[2018-06-23] MEDS: APIXABAN 5 MG (ELIQUIS) TABLET PO SCH (08:44)
[2018-06-23] MEDS: OMEGA 3 (FISH OIL) 1000 MG CAP PO SCH (08:44)
[2018-06-23] MEDS: ALPRAZolam 1 MG (XANAX) TAB PO SCH (08:44)
[2018-06-23] MEDS: busPIRone 10 MG (BUSPAR) TAB PO SCH (08:45)
[2018-06-23] MEDS: AMIODARONE 200 MG (CORDARONE) TAB PO SCH (08:45)
[2018-06-23] MEDS: DILTIAZEM 120 MG (CARDIZEM CD) CAP PO SCH (08:45)
[2018-06-23] MEDS ORDERED: NON-FORMULARY MEDICATION 1 EA EA (Potassium Gluconate (Potassium) 99 MG) PO SCH (09:00)
[2018-06-23] MEDS ORDERED: SERTRALINE 50 MG (ZOLOFT) TABLET PO SCH (09:00)
[2018-06-23] MEDS ORDERED: FENOFIBRATE 134 MG (LOFIBRA) CAPSULE PO SCH (09:00)
[2018-06-23] MEDS ORDERED: FENOFIBRATE, MICRO 67 MG (LOFIBRA) CAPSULE PO SCH (09:00)
[2018-06-23] MEDS ORDERED: LORATADINE (CLARITIN) 10 MG TAB PO PRN (09:00)
[2018-06-23] MEDS ORDERED: MAGNESIUM OXIDE (MAG-OX)400 MG TAB PO SCH (09:00)
[2018-06-23] MEDS ORDERED: raLOXifene 60 MG (EVISTA) TAB PO SCH (09:00)
[2018-06-24] MEDS ORDERED: KCL 20 MEQ TAB (K-DUR) PO SCH (06:00)
[2018-06-24] MEDS ORDERED: POTASSIUM CL 10MEQ/50ML IVPB 50 ML IV SCH (06:00)
[2018-06-24] MEDS ORDERED: MAGNESIUM 1 GM/100 ML IVPB 100 ML IV SCH (06:00)
--- OUTSIDE RECORDS SUMMARY | 2018-06-25 12:36 | XMS REPORT | Encounter Summary ---
Author Author [facility] Organization [facility] Address Unknown Phone Unavailable Care Team Providers Care Breaker Unit Assembler Name Role Phone Silverio Walker MD Unavailable Sung Dunn MD PCP Reason for Visit * Reason Comments Atrial fibrillation Atrial Flutter Encounter Details Date Type Department Care Team Description 06/17/2018 Office Visit [facility] Cardiology Vicente Coulter MD Atrial fibrillation; [facility] [place] [facility] Atrial Flutter [address] [address] [place] [address] [place] [address] [phone] Social History Tobacco Use Types Packs/Day Years [...] concerns, please call Dr. Coulter's nurse at [phone]. It is ok to leave a message at this number and his nurse will return your call. You can also reach us through [employer]. Baseline Amiodarone testing: PFT's with DLCO (pulmonary [...] seeing your patient Mary Roth in the [facility] as a part of the [facility] Cardiology [place] office today for follow up regarding her Paroxysmal Atrial Fibrillation. She is typically followed and was referred by my friend and colleague Dr. Price , her primary pipe cutter, in [facility]. Ms. Roth is an exceptionally [...] artery stenosis by duplex 05/2017Lyly Mon a [id number] score of 3:Female, HTN, and age >65 yo. NOTE--she apparently has had some elevated LFTs when on amiodarone in the past. -- 06/10/18: Pt presented to [facility] ER for tachycardia and dizziness with standing. [...] Baseline Testingto include PFTs with DLCO in [facility] Ms. Roth was educated regarding plan [...] underwent AFIB Ablation by Dr. Kelly in [place], [place] -- Post AFIB Ablation--unclear what antiarrhythmic [...] continued Sotalol. -- 06/10/18: Pt presented to [facility] ER for tachycardia and dizziness with standing. [...]
--- OUTSIDE RECORDS SUMMARY | 2018-06-25 12:36 | XMS REPORT | Encounter Summary ---
Author Author [facility] Organization [facility] Address Unknown Phone Unavailable Care Team Providers Care Business Analytics Director Name Role Phone Silverio Walker MD Unavailable Sung Dunn MD PCP Encounter Details Date Type Department Care Team Description 06/23/2018 Documentation [facility] Marli Logan, DIANE [facility] [place] [address] 3rd [phone] [facility] [address] [address] [place] [address] Social History Tobacco Use Types Packs/Day Years Used Date Never Smoker Smokeless Tobacco: Never Used Alcohol Use Drinks/Week oz/Week Comments Yes 1 Glasses of 0.6 wine Sex Assigned at Date Recorded Not on file as of this encounter Plan of Treatment Not on fileas of this encounter Visit Diagnoses Not on filein this encounter
--- OUTSIDE RECORDS SUMMARY | 2018-06-25 12:36 | XMS REPORT | Encounter Summary ---
Author Author [facility] Organization [facility] Address Unknown Phone Unavailable Care Team Providers Care Pipe Organ Builder Name Role Phone Silverio Walker MD Unavailable Sung Dunn MD PCP Reason for Visit * Reason Comments Labs Only 06/15 BMP Encounter Details Date Type Department Care Team Description 06/16/2018 Documentation [facility] Alethea Rader, DIANE Labs Only (06/15 BMP) [address] [address] [address] [place] [address] Social History Tobacco Use Types Packs/Day Years [...] OTHER OUTSIDE LAB Specimen Blood - Blood Narrative Performed At Performing Organization Address City/State/Zipcode Phone Number OTHER OUTSIDE LAB in this encounter Visit Diagnoses Not on filein this encounter
--- OUTSIDE RECORDS SUMMARY | 2018-06-25 12:36 | XMS REPORT | Encounter Summary ---
Author Author [facility] Organization [facility] Address Unknown Phone Unavailable Care Team Providers Care Software Release Engineer Name Role Phone Silverio Walker MD Unavailable Sung Dunn MD PCP Reason for Visit * Reason Comments Medication Follow-up review medication regimen Encounter Details Date Type Department Care Team Description 06/19/2018 Telephone [facility] Cardiology Aliya Haskins, surveying teacher Follow-up [address] (review medication [address] regimen) [place] [address] Social History Tobacco Use Types [...] to finalize plans. Jeanine Dempsey RN to [place] 06/19/18 11:08 AM Placed call to patient [...] her to call today. Call back is [phone] in this encounter Plan of Treatment Not on fileas of this encounter Visit Diagnoses Not on filein this encounter
--- OUTSIDE RECORDS SUMMARY | 2018-06-25 12:36 | XMS REPORT | Clinical Summary ---
Author Author [facility] Organization [facility] Address Unknown Phone Unavailable Care Team Providers Care Starbucks Barista Name Role Phone Silverio Walker MD Unavailable Sung Dunn MD PCP Source Comments Some departments are not documenting in the electronic medical record. If you do not see the information that you expected, contact Release of Information in the Health Information Management department at [phone] for further assistance in locating additional records.[facility] Allergies Active Allergy Reactions Severity Noted Date [...] Encounters Date Type Specialty Care Team Description 06/23/2018 Documentation Cardiology Marli Logan RN 06/23/2018 Documentation Cardiology Daisy Osman Labs Only ( Historical Labs Reviewed by PCP) 06/22/2018 Telephone Cardiology Katharine Crum RN Other (in [place], [place]) 06/22/2018 Pharmacy Visit 06/21/2018 Documentation Cardiology Mervat Haskins RN Amiodarone Monitoring (to start Amiodarone 06/21/18 ) 06/19/2018 Telephone Cardiology Aliya Haskins RN Erroneous encounter-disregard (duplicate encounter) 06/19/2018 Telephone Cardiology Aliya Haskins RN Medication Follow-up (review medication regimen) 06/19/2018 Telephone Cardiology Jeanine Dempsey RN 06/17/2018 Office Visit Cardiology Vicente Coulter MD Atrial fibrillation; Atrial Flutter 06/17/2018 Hospital Cardiology Vicente Coulter MD Encounter 06/16/2018 Documentation Cardiology Alethea Rader RN Labs Only (06/15 BMP) 06/15/2018 Pharmacy Visit 06/15/2018 Pharmacy Visit 06/15/2018 Telephone Cardiology Alethea Rader RN 06/15/2018 Telephone Cardiology Alethea Rader RN 06/12/2018 Documentation Cardiology Costa Zapata RN Records Request (06/10 ER visit at [facility]) 06/12/2018 Telephone Cardiology Costa Zapata RN Medical Question ( "heart issues") 06/01/2018 Telephone Otolaryngology Silverio Walker MD Medication Follow-up (botox) 05/27/2018 Hospital Cardiology Vicente Coulter MD Encounter 05/27/2018 Office Visit Cardiology Vicente Coulter MD Atrial fibrillation (3 month follow up); Atrial Flutter 05/27/2018 Orders Only Cardiology Ama Granger MA 05/06/2018 Procedure visit Otolaryngology Silverio Walker MD Dysphonia (Primary Dx); Adductor spasmodic dysphonia with tremor 05/06/2018 [facility] Cardiology Silverio Walker MD Encounter 05/06/2018 Hospital Radiology Vicente Coulter MD Encounter 05/05/2018 [...] needed in April) 03/25/2018 Orders Only Cardiology Gómez, Marielena, RN Atrial fibrillation , unspecified type (HCC) [...] 36.9 C (98.5 F) 01/22/2018 5:00 AM FINE ARTS INSTRUCTOR Respiratory Rate - - Oxygen Saturation 97% 01/21/2018 11:00 PM FINE ARTS INSTRUCTOR Inhaled Oxygen - - Concentration Weight 71.7 [...] VACCINE 08/17/2018 09/24/2017 Implants Implanted Type Area Configuration Management Advisor Device Expiration Model / Identifier Date Serial [...] [id number] OTHER OUTSIDE LAB Generator Serial # [id number] OTHER OUTSIDE LAB Generator Implnat Date 01/03/16 OTHER OUTSIDE LAB Device Implanted By [facility] OTHER OUTSIDE LAB EP Device Followed By [...] Dr. Price OTHER OUTSIDE LAB Name Device [place] [employer] OTHER OUTSIDE LAB Transmitter Compatible Known Diagnosed AFib Yes OTHER OUTSIDE LAB On Anticoagulation Yes OTHER OUTSIDE LAB Generator Configuration Management Advisor Medtronic OTHER OUTSIDE LAB Narrative Performed At OTHER OUTSIDE LAB In office LINQ check Pt follows with Dr. Price. We do not follow remote. Presenting EGM: Regular tachycardia, appears likely 2:1 Aflutter, V rate 114bpm. Appears pt has been out of rhythm since 06/10/18 Events since last OV check with us on 05/27/18: 11 Tachy #[id number], all on 06/10/18. EGMs show likely AFib/flutter with RVR, occas aberrant beats vs PVC, rates 180s-190sbpm 9 AF #[id number], all 06/10-06/12/18.EGMs show AFib w RVR, V rates 110s-190sbpm. Appears pt has been out of rhythm since 06/10/18 Programming changes made: none Report given to Dr. Coulter. Performing Organization Address City/State/Zipcode Phone Number OTHER OUTSIDE LAB * BASIC [...] Blood Narrative Performed At Performing Organization Address City/[facility] Phone Number OTHER OUTSIDE LAB * BOTOX [...] with 5 units today. Performing Organization Address City/[facility] Phone Number IN CLINIC * CT LMTD [...] on 05/06/2018 4:03 PM. Dictated by Hector Froman M.D. on 05/06/2018 4:01 PM. Performing Organization [...] paroxysmal atrial fibrillation status post ablation in [place] in 02/2016. She underwent a redo ablation [...] paroxysmal atrial fibrillation status post ablation in [place] in 02/2016. She underwent a redo ablation [...] on 05/07/2018 9:46 AM. Performing Organization Address City/[facility] Phone Number KU RAD RESULTS * CBC (04/12/2018) White Blood Cells 5.4 [facility] RBC 4.28 (L) 4.35 - 5.85 [facility] Hemoglobin 13.3 [facility] Hematocrit 38 [facility] MCV [facility] MCH [facility] MCHC [facility] Platelet Count 341 [facility] MPV [facility] RDW [facility] Specimen Blood - Blood Performing Organization Address [facility] Phone Number [facility] [address] [address] [place] * THYROID STIMULATING HORMONE-TSH (04/12/2018) TSH 2.97 [facility] Specimen Blood - Blood Performing Organization Address [facility] Phone Number [facility] [address] [phone] [place] * MAGNESIUM (04/12/2018) Magnesium 2.2 [facility] Specimen Blood - Blood Performing Organization Address [facility] Phone Number [facility] [address] [address] [place] * COMPREHENSIVE METABOLIC PANEL (04/12/2018) Sodium 139 [facility] Potassium 4.1 [facility] Chloride 105 [facility] CO2 24 [facility] Blood Urea Nitrogen 20 (H) 7 - 18 [facility] Creatinine 0.84 [facility] Glucose 75 [facility] Calcium 9.9 [facility] Total Protein 8.3 (H) 6.4 - 8.2 [facility] Total Bilirubin 0.4 [facility] Albumin 4.8 (H) 3.2 - 4.5 [facility] Alk Phosphatase 57 [facility] AST (SGOT) 25 [facility] ALT (SGPT) 18 [facility] eGFR Non >60 [facility] eGFR [facility] Anion Gap 10 [facility] Specimen Blood - Blood Performing Organization Address City/State/Zipcode Phone Number [facility] [address] [place] [address] [place] * ECG-SCAN (04/07/2018 12:26 PM) Narrative Performed At Ordered by an unspecified provider. from Last 3 Months
--- OUTSIDE RECORDS SUMMARY | 2018-06-25 12:36 | XMS REPORT | Encounter Summary ---
Author Author [facility] Organization [facility] Address Unknown Phone Unavailable Care Team Providers Care Toy Designer Name Role Phone Silverio Walker MD Unavailable Sung Dunn MD PCP Encounter Details Date Type Department Care Team Description 06/19/[address] [facility] Cardiology Jeanine Dempsey RN [facility] [place] [address] [place] [phone] [place] [address] Social History Tobacco Use Types [...]
--- OUTSIDE RECORDS SUMMARY | 2018-06-25 12:36 | XMS REPORT | Encounter Summary ---
Author Author [facility] Organization [facility] Address Unknown Phone Unavailable Care Team Providers Care Salesperson Books Name Role Phone Silverio Walker MD Unavailable Sung Dunn MD PCP Reason for Visit * Reason Comments Other in [place], [place] Encounter Details Date Type Department Care Team Description 06/22/2018 Telephone [facility] Cardiology Katharine Crum RN Other (in [place], [place]) [place] [address] [address] [place] [address] Social History Tobacco Use Types Packs/Day Years Used Date Never Smoker Smokeless Tobacco: Never Used Alcohol Use Drinks/Week oz/Week Comments Yes 1 Glasses of 0.6 wine Sex Assigned at Date Recorded Not on file as of this encounter Miscellaneous Notes * Telephone Encounter - Katharine Crum RN - 06/22/2018 8:30 AM CDT I called the patient back this am to discuss the below. She tells me that she is currently in the hospital in [place], [place]. She had an episode of a fib and is currently admitted. Will ask Dr. Coulter to call Dr. Price and decide on plan. SergioRN From [facility] OV note dated 06/17/18 "THEREFORE, I am going to have her decrease her amiodarone to 400 mg a day, 3 days prior to cardioversion and I will have her stop her diltiazem 3 days prior to the cardioversion as well. We will consider putting in a temporary pacemaker catheter at the time of the cardioversion and perform the cardioversion in the EP lab." ----- Message ----- From: Daisy Osman Sent: 06/22/2018 7:58 AM To: Mac Nurse Ep Subject: MPE-Cardioversion Patient calling to let us know that 07/03 at 1100 would work for her for her cardioversion. [phone] in this encounter Plan of Treatment Not on fileas of this encounter Visit Diagnoses Not on filein this encounter
--- OUTSIDE RECORDS SUMMARY | 2018-06-25 12:36 | XMS REPORT | Encounter Summary ---
Author Author [facility] Organization [facility] Address Unknown Phone Unavailable Care Team Providers Care Scuba Diver Name Role Phone Silverio Walker MD Unavailable Sung Dunn MD PCP Reason for Visit * Reason Comments Erroneous duplicate encounter encounter-disregard Encounter Details Date Type Department Care Team Description 06/19/2018 Telephone [facility] Cardiology Aliya Haskins, DIANE Erroneous [address] encounter-disregard [address] (duplicate encounter) [place] [address] Social History Tobacco Use Types Packs/Day Years Used Date Never Smoker Smokeless Tobacco: Never Used Alcohol Use Drinks/Week oz/Week Comments Yes 1 Glasses of 0.6 wine Sex Assigned at Date Recorded Not on file as of this encounter Plan of Treatment Not on fileas of this encounter Visit Diagnoses Not on filein this encounter
--- OUTSIDE RECORDS SUMMARY | 2018-06-25 12:36 | XMS REPORT | Encounter Summary ---
Author Author [facility] Organization [facility] Address Unknown Phone Unavailable Care Team Providers Care Software Security Consultant Name Role Phone Silverio Walker MD Unavailable Sung Dunn MD PCP Encounter Details Date Type Department Care Team Description 06/17/2018 [facility] Cardiology Vicente Coulter MD Encounter [facility] [place] [facility] [place] [address] [address] [place] [address] [place] [address] [phone] Social History Tobacco Use Types Packs/Day Years [...] LNQ11 OTHER OUTSIDE LAB Generator Serial # [id number] OTHER OUTSIDE LAB Generator Implnat Date 01/03/16 OTHER OUTSIDE LAB Device Implanted By [facility] OTHER OUTSIDE LAB EP Device Followed [...] Dr. Price OTHER OUTSIDE LAB Name Device [place] [facility] OTHER OUTSIDE LAB Transmitter Compatible Known Diagnosed AFib Yes OTHER OUTSIDE LAB On Anticoagulation Yes OTHER OUTSIDE LAB Generator Crozer Operator Medtr[employer] OTHER OUTSIDE LAB Narrative Performed At OTHER OUTSIDE LAB In office LINQ check Pt follows with Dr. Price. We do not follow remote. Presenting EGM: Regular tachycardia, appears likely 2:1 Aflutter, V rate 114bpm. Appears pt has been out of rhythm since 06/10/18 Events since last OV check with us on 05/27/18: 11 Tachy #[id number], all on 06/10/18. EGMs show likely AFib/flutter with RVR, occas aberrant beats vs PVC, rates 180s-190sbpm 9 AF #[id number], all 06/10-06/12/18.EGMs show AFib w RVR, V rates 110s-190sbpm. Appears pt has been out of rhythm since 06/10/18 Programming changes made: none Report given to Dr. Coulter. Performing Organization Address City/State/Zipcode Phone Number OTHER OUTSIDE LAB in this encounter Visit Diagnoses Diagnosis Atrial tachycardia (HCC) Other specified cardiac dysrhythmias
--- OUTSIDE RECORDS SUMMARY | 2018-06-25 12:36 | XMS REPORT | Encounter Summary ---
Author Author [facility] Organization [facility] Address Unknown Phone Unavailable Care Team Providers Care Contact Center Professional Name Role Phone Silverio Walker MD Unavailable Sung Dunn MD PCP Encounter Details Date Type Department Care Team Description 06/15/2018 Pharmacy Visit Call [facility] [address] [place] [address] Social History Tobacco Use Types Packs/Day Years Used Date Never Smoker Smokeless Tobacco: Never Used Alcohol Use Drinks/Week oz/Week Comments Yes 1 Glasses of 0.6 wine Sex Assigned at Date Recorded Not on file as of this encounter Plan of Treatment Not on fileas of this encounter Visit Diagnoses Not on filein this encounter
--- OUTSIDE RECORDS SUMMARY | 2018-06-25 12:36 | XMS REPORT | Encounter Summary ---
Author Author [facility] Organization [facility] Address Unknown Phone Unavailable Care Team Providers Care Slurry Man Name Role Phone Silverio Walker MD Unavailable Sung Dunn MD PCP Encounter Details Date Type Department Care Team Description 06/22/2018 Pharmacy Visit [facility] [address] [place] [address] Social History Tobacco Use Types Packs/Day Years Used Date Never Smoker Smokeless Tobacco: Never Used Alcohol Use Drinks/Week oz/Week Comments Yes 1 Glasses of 0.6 wine Sex Assigned at Date Recorded Not on file as of this encounter Plan of Treatment Not on fileas of this encounter Visit Diagnoses Not on filein this encounter
--- OUTSIDE RECORDS SUMMARY | 2018-06-25 12:36 | XMS REPORT | Encounter Summary ---
Author Author [facility] Organization [facility] Address Unknown Phone Unavailable Care Team Providers Care Oil Analyst Name Role Phone Silverio Walker MD Unavailable Sung Dunn MD PCP Reason for Visit * Reason Comments Labs Only Historical Labs Reviewed by PCP Encounter Details Date Type Department Care Team Description 06/23/2018 Documentation [facility] Daisy Osman Labs Only (Historical [address] Labs Reviewed by PCP) [place] [id number] Social History Tobacco Use Types Packs/Day Years Used Date Never Smoker Smokeless Tobacco: Never Used Alcohol Use Drinks/Week oz/Week Comments Yes 1 Glasses of 0.6 wine Sex Assigned at Date Recorded Not on file as of this encounter Plan of Treatment Not on fileas of this encounter Results * CBC (04/12/2018) White Blood Cells 5.4 [facility] RBC 4.28 (L) 4.35 - 5.85 [facility] Hemoglobin 13.3 [facility] Hematocrit 38 [facility] MCV [facility] MCH [facility] MCHC [facility] Platelet Count 341 [facility] MPV [facility] RDW [facility] Specimen Blood - Blood Performing Organization Address City/[facility] Phone Number [facility] [address] [address] [place] * THYROID STIMULATING HORMONE-TSH (04/12/2018) TSH 2.97 [facility] Specimen Blood - Blood Performing Organization Address City/[facility] Phone Number [facility] [address] [address] [place] * MAGNESIUM (04/12/2018) Magnesium 2.2 [facility] Specimen Blood - Blood Performing Organization Address [facility] Phone Number [facility] [address] [address] [place] * COMPREHENSIVE METABOLIC PANEL (04/12/2018) Sodium 139 [facility] Potassium 4.1 [facility] Chloride 105 [facility] CO2 24 [facility] Blood Urea Nitrogen 20 (H) 7 - 18 [facility] Creatinine 0.84 [facility] Glucose 75 [facility] Calcium 9.9 [facility] Total Protein 8.3 (H) 6.4 - 8.2 [facility] Total Bilirubin 0.4 [facility] Albumin 4.8 (H) 3.2 - 4.5 [facility] Alk Phosphatase 57 [facility] AST (SGOT) 25 [facility] ALT (SGPT) 18 [facility] eGFR Non >60 [facility] eGFR [facility] Anion Gap 10 [facility] Specimen Blood - Blood Performing Organization Address City/[facility] Phone Number [facility] [address] [phone] [place] in this encounter Visit Diagnoses Not on filein this encounter
--- OUTSIDE RECORDS SUMMARY | 2018-06-25 12:36 | XMS REPORT | Encounter Summary ---
Author Author [facility] Organization [facility] Address Unknown Phone Unavailable Care Team Providers Care Ncqa Specialist Name Role Phone Silverio Walker MD Unavailable Sung Dunn MD PCP Encounter Details Date Type Department Care Team Description 06/15/2018 Pharmacy Visit [facility] [address] [place] [address] Social History Tobacco Use Types Packs/Day Years Used Date Never Smoker Smokeless Tobacco: Never Used Alcohol Use Drinks/Week oz/Week Comments Yes 1 Glasses of 0.6 wine Sex Assigned at Date Recorded Not on file as of this encounter Plan of Treatment Not on fileas of this encounter Visit Diagnoses Not on filein this encounter
--- OUTSIDE RECORDS SUMMARY | 2018-06-25 12:36 | XMS REPORT | Encounter Summary ---
Author Author [facility] Organization [facility] Address Unknown Phone Unavailable Care Team Providers Care Optical Instrument Specialist Name Role Phone Silverio Walker MD Unavailable Sung Dunn MD PCP Reason for Visit * Reason Comments Amiodarone Monitoring to start Amiodarone 06/21/18 Encounter Details Date Type Department Care Team Description 06/21/2018 Documentation [facility] Mervat Haskins, DIANE Amiodarone Monitoring (to [address] start Amiodarone 06/21/18 [place] [id number] ) [phone] Social History Tobacco Use Types Packs/Day Years [...] results found for: AST, ALT, TSH, TSH3G, ZMLCC0B Pt had recent TSH , Free T4 04/2018 . I requested results Shona Vanessa MD [address] [place] [address] [place] [address] I requested recent lft's from pt's [...]
--- OUTSIDE RECORDS SUMMARY | 2018-06-25 12:37 | XMS REPORT | Encounter Summary ---
Author Author [facility] Organization [facility] Address Unknown Phone Unavailable Care Team Providers Care Apple Sorter Name Role Phone Silverio Walker MD Unavailable Sung Dunn MD PCP Reason for Referral * Status Reason Specialty Diagnoses / Referred By Referred To Procedures Contact Contact New Request Procedures Vicente Coulter, REQUEST FOR CARDIOLOGY [address] [place] [address] Encounter Details Date Type Department Care Team Description 06/15/2018 Telephone [facility] Cardiology Alethea Rader RN [facility] [place], [place] [id number] Social History Tobacco Use Types Packs/Day Years [...] keith offered 4 pm appt at the [facility] - she will need device check and asked her to come in at 3 pm. states she was started on Cartia XT 120 mg twice daily - med list updated per review of labs in ED her serum K+ was 3.4. will have bmp at the [facility] Lab phone [phone] fax [phone] * Telephone Encounter - Alethea Rader RN - 06/15/2018 1:36 PM CDT ----- Message from Yesy Tovar LPN sent at 06/15/2018 11:41 AM CDT ----- Regarding: MPE- Seen keith VM on triage line from Maryann with Dr. Harris office # [phone]. Said that she was seen in office [...] LNQ11 OTHER OUTSIDE LAB Generator Serial # [id number] OTHER OUTSIDE LAB Generator Implnat Date 01/03/16 OTHER OUTSIDE LAB Device Implanted By [facility] OTHER OUTSIDE LAB EP Device Followed By [...] Dr. Price OTHER OUTSIDE LAB Name Device [place] [employer] OTHER OUTSIDE LAB Transmitter Compatible Known Diagnosed AFib Yes OTHER OUTSIDE LAB On Anticoagulation Yes OTHER OUTSIDE LAB Generator Clinical Lab Clerk [employer] OTHER OUTSIDE LAB Narrative Performed At OTHER OUTSIDE LAB In office LINQ check Pt follows with Dr. Price. We do not follow remote. Presenting EGM: Regular tachycardia, appears likely 2:1 Aflutter, V rate 114bpm. Appears pt has been out of rhythm since 06/10/18 Events since last OV check with us on 05/27/18: 11 Tachy #[id number], all on 06/10/18. EGMs show likely AFib/flutter with RVR, occas aberrant beats vs PVC, rates 180s-190sbpm 9 AF #[id number], all 06/10-06/12/18.EGMs show AFib w RVR, V rates 110s-190sbpm. Appears pt has been out of rhythm since 06/10/18 Programming changes made: none Report given to Dr. Coulter. Performing Organization Address City/State/Zipcode Phone Number OTHER OUTSIDE LAB in this encounter Visit Diagnoses Diagnosis Atrial tachycardia (HCC) - Primary Other specified cardiac dysrhythmias
--- OUTSIDE RECORDS SUMMARY | 2018-06-25 12:37 | XMS REPORT | Encounter Summary ---
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 Performing Organization Address City/State/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
--- OUTSIDE RECORDS SUMMARY | 2018-06-25 12:37 | XMS REPORT | Encounter Summary ---
Author Author [facility] Organization [facility] Address Unknown Phone Unavailable Care Team Providers Care Superintendent Laundry Name Role Phone Silverio Walker MD Unavailable Sung Dunn MD PCP Encounter Details Date Type Department Care Team Description 03/25/2018 Procedure Pass [facility] Radiology [facility] [address] [place] [address] Social History Tobacco Use Types Packs/Day Years Used Date Never Smoker Smokeless Tobacco: Never Used Alcohol Use Drinks/Week oz/Week Comments Yes 1 Glasses of 0.6 wine Sex Assigned at Date Recorded Not on file as of this encounter Plan of Treatment Not on fileas of this encounter Visit Diagnoses Not on filein this encounter
--- OUTSIDE RECORDS SUMMARY | 2018-06-25 12:37 | XMS REPORT | Encounter Summary ---
Author Author [facility] Organization [facility] Address Unknown Phone Unavailable Care Team Providers Care Mill Crane Operator Name Role Phone Silverio Walker MD Unavailable Sung Dunn MD PCP Reason for Referral * Status Reason Specialty Diagnoses / Referred By Referred To Procedures Contact Contact New Request Diagnoses Vicente Coulter Paroxysmal MD atrial [address] (HCC) [place] [address] [place], [place] [address] REQUEST FOR Phone: CARDIOLOGY [phone] APPOINTMENT * Status Reason Specialty Diagnoses / Referred By Referred To Procedures Contact Contact New Request Diagnoses Vicente Coulter Paroxysmal MD atrial [address] (HCC) [address] [place], [place] [address] REQUEST FOR Phone: CARDIOLOGY [phone] APPOINTMENT Reason for Visit * Reason Comments Atrial fibrillation 3 month follow up Atrial Flutter * Status Reason Specialty Diagnoses / Referred By Referred To Procedures Contact Contact New Request Diagnoses Vicnete Coulter Paroxysmal MD atrial [address] (HCC) [address] [place], [place] [employer] [address] REQUEST FOR Phone: CARDIOLOGY [phone] APPOINTMENT Encounter Details Date Type Department Care Team Description 05/27/2018 Office Visit [facility] Cardiology Vicente Coulter MD Atrial fibrillation (3 [facility] [place] [facility] 3rd [address] month follow up); Atrial fl [address] [place] [address] [place] [address] [phone] Social History Tobacco Use Types Packs/Day Years [...] concerns, please call Dr. Coulter's nurse at [phone]. It is ok to leave a message at this number and his nurse will return your call. You can also reach us through [employer]. Call if you are having recurrent afib. in this encounter Progress Notes * Vicente Coulter MD - 05/27/2018 10:15 AM CDT Formatting of this note may be different from the original. Date of Service: 05/27/2018 Mary Roth is a 72 y.o. female. HPI I had the pleasure of seeing your patient Mary Roth in the [facility] as a part of the [facility] [place] office today for follow up regarding her Paroxysmal Atrial Fibrillation. She is typically followed and was referred by my friend and colleague Dr. Price , her primary home demonstrator, in [facility]. Ms. Roth is [...] stenosis by duplex 05/2017Dr. Price. Shehas a [id number] score of 3:Female, HTN, and age > [...] underwent AFIB Ablation by Dr. Kelly in [place] -- Post AFIB Ablation--unclear what antiarrhythmic [...] -- 12/11/17: Telephone: Pt was hospitalized at [facility] with AFIB with RVR. Nurse from [facility] called to schedule CTA for ablation. Pt [...] -- 04/15/18: Cardioversion by Dr. Price: Dr. rPice described AFL -- 05/06/18: RA was moderately [...] LNQ11 OTHER OUTSIDE LAB Generator Serial # [id number] OTHER OUTSIDE LAB Generator Implnat Date 01/03/16 OTHER OUTSIDE LAB Device Implanted By [facility] OTHER OUTSIDE LAB EP Device Followed [...] Dr. Price OTHER OUTSIDE LAB Name Device [employer] OTHER OUTSIDE LAB Transmitter Compatible Known Diagnosed AFib Yes OTHER OUTSIDE LAB On Anticoagulation Yes OTHER OUTSIDE LAB Generator Senior Piping Designer [employer] OTHER OUTSIDE LAB ILR Symptom Lifetime [...] check.Pt is followed by Dr. Price in [place].We do not do remote. Presenting EGM: SB 56bpm Events since last interrogation 05/05/18: none Reviewed prior events since pt was here on 03/05/18: #[id number] AF events from 04/11/18-04/14/18.4.5hrs on 04/11/18 and [...]
--- OUTSIDE RECORDS SUMMARY | 2018-06-25 12:37 | XMS REPORT | Encounter Summary ---
Author Author [facility] Organization [facility] Address Unknown Phone Unavailable Care Team Providers Care Weight Control Engineer Name Role Phone Silverio Walker MD Unavailable Sung Dunn MD PCP Encounter Details Date Type Department Care Team Description 05/27/2018 [facility] Cardiology Vicente Coulter MD Encounter [facility] [place] [facility] 3rd [address] [place] [address] [place] [address] [phone] Social History Tobacco Use Types Packs/Day Years [...] LNQ11 OTHER OUTSIDE LAB Generator Serial # [id number] OTHER OUTSIDE LAB Generator Implnat Date 01/03/16 OTHER OUTSIDE LAB Device Implanted By [facility] OTHER OUTSIDE LAB EP Device Followed [...] Dr. Price OTHER OUTSIDE LAB Name Device [employer] OTHER OUTSIDE LAB Transmitter Compatible Known Diagnosed AFib Yes OTHER OUTSIDE LAB On Anticoagulation Yes OTHER OUTSIDE LAB Generator Preprint Analyst [employer] OTHER OUTSIDE LAB ILR Symptom Lifetime [...] check.Pt is followed by Dr. Price in [place].We do not do remote. Presenting EGM: SB 56bpm Events since last interrogation 05/05/18: none Reviewed prior events since pt was here on 03/05/18: #[id number] AF events from 04/11/18-04/14/18.4.5hrs on 04/11/18 and [...]
--- OUTSIDE RECORDS SUMMARY | 2018-06-25 12:37 | XMS REPORT | Encounter Summary ---
Author Author [facility] Organization [facility] Address Unknown Phone Unavailable Care Team Providers Care Director Project Management Name Role Phone Silverio Walker MD Unavailable Sung Dunn MD PCP Encounter Details Date Type Department Care Team Description 05/27/2018 [facility] Only [facility] Ama Granger MA [facility] [place] [facility] [place] [address] [address] [address] [place] [address] Social History Tobacco Use Types Packs/Day Years Used Date Never Smoker Smokeless Tobacco: Never Used Alcohol Use Drinks/Week oz/Week Comments Yes 1 Glasses of 0.6 wine Sex Assigned at Date Recorded Not on file as of this encounter Plan of Treatment Not on fileas of this encounter Visit Diagnoses Not on filein this encounter
--- OUTSIDE RECORDS SUMMARY | 2018-06-25 12:37 | XMS REPORT | Encounter Summary ---
Author Author [facility] Organization [facility] Address Unknown Phone Unavailable Care Team Providers Care Jewelry Model Maker Name Role Phone Silverio Walker MD Unavailable Sung Dunn MD PCP Encounter Details Date Type Department Care Team Description 06/15/2018 Telephone [facility] Cardiology Alethea Rader, DIANE [facility] [place] [address] Social History Tobacco Use Types [...] from Maryann with Dr. Harris office # [phone]. Said that she was seen in office this am and is having 2 to 1 atrial tach and prolonged QT. He would like her Sotalol regulated and seen keith. Call back to discuss more. in this encounter Plan of Treatment Not on fileas of this encounter Visit Diagnoses Not on filein this encounter
--- OUTSIDE RECORDS SUMMARY | 2018-06-25 12:37 | XMS REPORT | Encounter Summary ---
Author Author [facility] Organization [facility] Address Unknown Phone Unavailable Care Team Providers Care Paint And Table Edger Name Role Phone Silverio Walker MD Unavailable Sung Dunn MD PCP Encounter Details Date Type Department Care Team Description 05/06/2018 [facility] Cardiology Silverio Walker MD Encounter Main [facility] [place] [address] [place] [address] [phone] Social History Tobacco Use Types Packs/Day Years [...]
--- OUTSIDE RECORDS SUMMARY | 2018-06-25 12:37 | XMS REPORT | Encounter Summary ---
Author Author [facility] Organization [facility] Address Unknown Phone Unavailable Care Team Providers Care Grants Specialist Name Role Phone Silverio Walker MD Unavailable Sung Dunn MD PCP Reason for Referral * CTA Procedure Status Reason Specialty Diagnoses / Referred By Referred To Procedures Contact Contact No Auth Needed Cardiology Diagnoses Vicente Coulter Bhg Card Nuclear Atrial [facility] fibrillation, [id number] ([facility]) [address] [place], [place] [address] [employer] [id number] Phone: CT CARDIAC STRUCTURE WO/W [phone] CONT * CTA Procedure Status Reason Specialty Diagnoses / Referred By Referred To Procedures Contact Contact No Auth Needed Cardiology Diagnoses Vicente Coulter Bhg Card Nuclear Atrial [facility] fibrillation, [id number] ([facility]) [address] [place], [place] [address] [employer] [address] Phone: CT CARDIAC STRUCTURE WO/W [phone] CONT * CTA Procedure Status Reason Specialty Diagnoses / Referred By Referred To Procedures Contact Contact New Request Cardiology Diagnoses Vicente Coulter Bhg Card Nuclear Atrial [facility] fibrillation, [id number] (HCC) [address] [place], [place] [address] [employer] [id number] Phone: CT LMTD CHEST W CARDIAC [phone] * CTA Procedure Status Reason Specialty Diagnoses / Referred By Referred To Procedures Contact Contact New Request Cardiology Diagnoses Vicente Coulter Bhg Card Nuclear Atrial [facility] fibrillation, [id number] [facility] ([facility]) [address] [place], [place] [address] [email or web address] Phone: CT LMTD CHEST W CARDIAC [phone] Reason for Visit * CTA Procedure Status Reason Specialty Diagnoses / Referred By Referred To Procedures Contact Contact No Auth Needed Cardiology Diagnoses Vicente Coulter Bhg Card Nuclear Atrial [facility] fibrillation, [id number] [facility] ([facility]) [address] [place], [place] [address] [email or web address] Phone: CT CARDIAC STRUCTURE WO/W [phone] CONT Encounter Details Date Type Department Care Team Description 05/06/2018 [facility] Vicente Coulter MD Encounter Hospital Radiology [address] [facility] 2nd fl [address] [place] [address] [place] [address] [phone] Social History Tobacco Use Types Packs/Day Years [...] CARDIAC STRUCTURE WO/W CONT Primary reading physician: Odbulio Walton MD Secondary reading physician: Randal Mukherjee MD Exam date: 05/06/2018 Study number: [id number] INDICATIONS: Atrial fibrillation, Ms. Franz is a 72-year-old female with a past medical history of paroxysmal atrial fibrillation status post ablation in [place] in 02/2016. She underwent a redo ablation [...] paroxysmal atrial fibrillation status post ablation in [place] in 02/2016. She underwent a redo ablation [...] on 05/07/2018 9:46 AM. Performing Organization Address [facility] Phone Number [facility] RAD RESULTS * CT [...] on 05/06/2018 4:01 PM. Performing Organization Address [facility] Phone Number [facility] RAD RESULTS in this [...]
--- OUTSIDE RECORDS SUMMARY | 2018-06-25 12:37 | XMS REPORT | Encounter Summary ---
Author Author [facility] Organization [facility] Address Unknown Phone Unavailable Care Team Providers Care Accounting Reconciliation Clerk Name Role Phone Silverio Walker MD Unavailable Sung Dunn MD PCP Reason for Visit * Reason Comments Records Request 06/10 ER visit at [facility] Encounter Details Date Type Department Care Team Description 06/12/2018 Documentation [facility] Cardiology Costa Zaapta, DIANE Records Request (06/10 ER [facility] [place] [facility] 3rd visit at [facility] in [address]) [address] [place] [address] Social History Tobacco Use Types Packs/Day Years Used Date Never Smoker Smokeless Tobacco: Never Used Alcohol Use Drinks/Week oz/Week Comments Yes 1 Glasses of 0.6 wine Sex Assigned at Date Recorded Not on file as of this encounter Progress Notes * Costa Zapata RN - 06/12/2018 3:25 PM CDT Records request faxed to [facility] Medical Records @ 1- [phone]. * Costa Zapata RN - 06/12/2018 3:25 PM CDT Request for the following medical records for purpose of continuity of care: Patient was seen in the Emergency Room on 06/10. Please send us the records from this visit. Please include... Discharge Summary EKGs Lab results Test results Procedure Notes Any other pertinent information Please Fax to: [facility] Cardiology - [phone] Dr. Coulter Attention: Alethea Rader, RN Thank you in this encounter Plan of Treatment Not on fileas of this encounter Visit Diagnoses Not on filein this encounter
--- OUTSIDE RECORDS SUMMARY | 2018-06-25 12:37 | XMS REPORT | Encounter Summary ---
Author Author [facility] Organization [facility] Address Unknown Phone Unavailable Care Team Providers Care Deputy Sheriff Court Services Name Role Phone Silverio Walker MD Unavailable Sung Dunn MD PCP Reason for Visit * Reason Comments Medical Question "heart issues" Encounter Details Date Type Department Care Team Description 06/12/2018 Telephone [facility] Cardiology Costa Zapata RN Medical Question ("heart [facility] [place] [facility]3 3rd issues") [facility] [address] [address] [place] [address] Social History Tobacco Use Types [...] patient Message Contents Yesy Tovar LPN P [facility] Nurse Ep from patient on triage line returning or call. Returned call to patient. She states that Friday (06/10) evening she developed tachycardia & dizziness with standing. She went to [facility] ER; HR 140s-150s. She received IV diltiazem, [...] states she has an OV with an UROLOGIC NURSE at Dr. Price's office on Friday (06/15). [...] that Dr. Price should be privy to [facility]'s last OV note explaining the plan of [...] She confirmed that they had the 05/27 [facility] OV notes. She states the patient does not have an OV with an UROLOGIC NURSE on Friday, rather, she has an OV with Dr. Harris. She stated she would send us patient's ILR check from today; EP RightFax number given. Will request records from [facility]. Will route to Alethea for f/u. * Telephone Encounter - Costa Zapata RN - 06/12/2018 11:24 AM CDT Returned call to patient - [facility] for CB. * Telephone Encounter - [...]
--- OUTSIDE RECORDS SUMMARY | 2018-06-25 12:37 | XMS REPORT | Encounter Summary ---
Author Author [facility] Organization [facility] Address Unknown Phone Unavailable Care Team Providers Care Director Recreation Center Name Role Phone Silverio Walker MD Unavailable Sung Dunn MD PCP Encounter Details Date Type Department Care Team Description 03/25/2018 Procedure Pass [facility] Radiology [facility] 2nd fl [address] [place] [address] Social History Tobacco Use Types Packs/Day Years Used Date Never Smoker Smokeless Tobacco: Never Used Alcohol Use Drinks/Week oz/Week Comments Yes 1 Glasses of 0.6 wine Sex Assigned at Date Recorded Not on file as of this encounter Plan of Treatment Not on fileas of this encounter Visit Diagnoses Not on filein this encounter
--- OUTSIDE RECORDS SUMMARY | 2018-06-25 12:37 | XMS REPORT | Encounter Summary ---
Author Author [facility] Organization [facility] Address Unknown Phone Unavailable Care Team Providers Care Ux Interaction Designer Name Role Phone Silverio Walker MD Unavailable Sung Dunn MD PCP Reason for Visit * Reason Comments Medication Follow-up botox Encounter Details Date Type Department Care Team Description 06/01/2018 Telephone [facility] Silverio Walker MD Medication Follow-up Physicians - ENT [address] (botox) Ortho and Medical [address] [place] [address] [phone] [place] [address] Social History Tobacco Use Types [...]
--- OUTSIDE RECORDS SUMMARY | 2018-06-25 12:38 | XMS REPORT | Encounter Summary ---
Author Author [facility] Organization [facility] Address Unknown Phone Unavailable Care Team Providers Care Supervisor Ticket Sales Name Role Phone Silverio Walker MD Unavailable Sung Dunn MD PCP Reason for Referral * CTA Procedure Status Reason Specialty Diagnoses / Referred By Referred To Procedures Contact Contact No Auth Needed Cardiology Diagnoses Vicente Coulter Bhg Card Nuclear Atrial [facility] fibrillation, [id number] (HCC) [address] [place], [place] [address] [employer] [id number] Phone: CT CARDIAC STRUCTURE WO/W [phone] CONT * CTA Procedure Status Reason Specialty Diagnoses / Referred By Referred To Procedures Contact Contact New Request Cardiology Diagnoses Vicente Coulter Bhg Card Nuclear Atrial [facility] fibrillation, [id number] (HCC) [address] [place], [place] [address] [employer] [id number] Phone: CT LMTD CHEST W CARDIAC [phone] Encounter Details Date Type Department Care Team Description 03/25/2018 [facility] Only [facility] Marielena Gómez RN Atrial fibrillation, Main [facility] [id number] unspecified type (HCC) [address] (Primary Dx) [place] [address] Social History Tobacco Use Types Packs/Day Years [...] paroxysmal atrial fibrillation status post ablation in [place] in 02/2016. She underwent a redo ablation [...] paroxysmal atrial fibrillation status post ablation in [place] in 02/2016. She underwent a redo ablation [...]
--- OUTSIDE RECORDS SUMMARY | 2018-06-25 12:38 | XMS REPORT | Encounter Summary ---
Author Author [facility] Organization [facility] Address Unknown Phone Unavailable Care Team Providers Care Manager Audit Name Role Phone Silverio Walker MD Unavailable Sung Dunn MD PCP Reason for Visit * Reason Comments Other Post ablation cta needed in April Encounter Details Date Type Department Care Team Description 03/25/2018 Telephone [facility] Cardiology Marielena Gómez RN Other ( Post ablation cta [facility] [id number] needed in April) [address] [place] [address] Social History Tobacco Use Types [...]
--- OUTSIDE RECORDS SUMMARY | 2018-06-25 12:38 | XMS REPORT | Encounter Summary ---
Author Author [facility] Organization [facility] Address Unknown Phone Unavailable Care Team Providers Care Supervisor Chlorine Liquefaction Name Role Phone Silverio Walker MD Unavailable Sung Dunn MD PCP Encounter Details Date Type Department Care Team Description 03/30/2018 Documentation [facility] Elina Grijalva, RN [facility]600 [address] [place] [address] Social History Tobacco Use Types Packs/Day Years [...]
--- OUTSIDE RECORDS SUMMARY | 2018-06-25 12:38 | XMS REPORT | Encounter Summary ---
Author Author [facility] Organization [facility] Address Unknown Phone Unavailable Care Team Providers Care E Commerce Web Developer Name Role Phone Silverio Walker MD Unavailable Sung Dunn MD PCP Reason for Visit * Reason Comments Other post ablation CCTA - needs to be at Encounter Details Date Type Department Care Team Description 03/30/2018 Telephone [facility] Cardiology Jaye Martínez RN Other (post ablation CCTA [facility] [id number] - needs to be at ) [address] [place] [address] Social History Tobacco Use Types [...] regarding the best location to travel so ([facility] office * Telephone Encounter - Jaye Martínez [...]
--- OUTSIDE RECORDS SUMMARY | 2018-06-25 12:38 | XMS REPORT | Encounter Summary ---
Author Author [facility] Organization [facility] Address Unknown Phone Unavailable Care Team Providers Care Recruiter Name Role Phone Silverio Walker MD Unavailable Sung Dunn MD PCP Encounter Details Date Type Department Care Team Description 04/07/2018 Orders Only [facility] Gloria Verma RN Atrial fibrillation, [facility]600 unspecified type (HCC) [address] (Primary Dx) [place] [address] Social History Tobacco Use Types [...] City/State/Zipcode Phone Number [facility] [place] [address] [place] [address] 10A in this encounter Visit Diagnoses Diagnosis Atrial fibrillation, unspecified type (HCC) - Primary
--- OUTSIDE RECORDS SUMMARY | 2018-06-25 12:38 | XMS REPORT | Encounter Summary ---
Author Author [facility] Organization [facility] Address Unknown Phone Unavailable Care Team Providers Care Plant Equipment Engineer Name Role Phone Silverio Walker MD Unavailable Sung Dunn MD PCP Reason for Visit * Reason Comments Other CCTA requested, will call pt to schedule Encounter Details Date Type Department Care Team Description 04/07/2018 Telephone [facility] Cardiology Jaye Martínez RN Other (CCTA requested, [place] [address] will call pt to schedule) [address] [place] [address] Social History Tobacco Use Types [...] for around May 06. Call back is [phone] in this encounter Plan of Treatment Not on fileas of this encounter Visit Diagnoses Not on filein this encounter
--- OUTSIDE RECORDS SUMMARY | 2018-06-25 12:38 | XMS REPORT | Encounter Summary ---
Author Author [facility] Organization [facility] Address Unknown Phone Unavailable Care Team Providers Care Oracle Application Consultant Name Role Phone Silverio Walker MD Unavailable Sung Dunn MD PCP Reason for Visit * Reason Comments Lab Results BMP Encounter Details Date Type Department Care Team Description 05/05/2018 Documentation [facility] Kelsie Constantino splicing machine operator automatic Results (BMP) [address] [place] [address] Social History Tobacco Use Types [...] City/State/Zipcode Phone Number [facility] [place] [address] [place] [address] [phone] 10A in this encounter Visit Diagnoses Diagnosis Atrial fibrillation, unspecified type (HCC)
--- OUTSIDE RECORDS SUMMARY | 2018-06-25 12:38 | XMS REPORT | Encounter Summary ---
Author Author [facility] Organization [facility] Address Unknown Phone Unavailable Care Team Providers Care Forest Nursery Supervisor Name Role Phone Silverio Walker MD Unavailable Sung Dunn MD PCP Reason for Visit * Reason Comments Test/procedure Wants to schedule Cardiac CT scan Encounter Details Date Type Department Care Team Description 04/07/2018 Telephone [facility] Cardiology Marli Logan RN Test/ procedure (Wants to [facility] [place] [facility] [facility] [phone] scan) [place] [address] [place] [address] Social History Tobacco Use Types Packs/Day Years [...] for around May 06. Call back is [phone] in this encounter Plan of Treatment Not on fileas of this encounter Visit Diagnoses Not on filein this encounter
--- OUTSIDE RECORDS SUMMARY | 2018-06-25 12:38 | XMS REPORT | Encounter Summary ---
Author Author [facility] Organization [facility] Address Unknown Phone Unavailable Care Team Providers Care Marine Painter Name Role Phone Silverio Walker MD Unavailable Sung Dunn MD PCP Encounter Details Date Type Department Care Team Description 05/04/[address] [facility] [address] [place], [place] [address] Social History Tobacco Use Types Packs/Day Years [...]
--- OUTSIDE RECORDS SUMMARY | 2018-06-25 12:42 | XMS REPORT | Encounter Summary ---
Author Author [facility] Organization [facility] Address Unknown Phone Unavailable Care Team Providers Care Salesperson Corsets Name Role Phone Silverio Wlaker MD Unavailable Sung Dunn MD PCP Reason for Visit * Reason Comments Amiodarone Monitoring to start Amiodarone 06/21/18 Encounter Details Date Type Department Care Team Description 06/21/2018 [facility]ation [facility] Mervat Haskins, DIANE Amiodarone Monitoring (to [address] start Amiodarone 06/21/18 DANDRE MCLAUGHLIN [id number] ) [phone] Social History Tobacco Use Types Packs/Day Years [...] results found for: AST, ALT, TSH, TSH3G, DYYAF1G Pt had recent TSH , Free T4 04/2018 . I requested results Shona Vanessa MD [address] [place] [address] [place] [address] I requested recent lft's from pt's [...]
--- OUTSIDE RECORDS SUMMARY | 2018-06-25 12:42 | XMS REPORT | Encounter Summary ---
Author Author [facility] Organization [facility] Address Unknown Phone Unavailable Care Team Providers Care Band Sawmill Operator Name Role Phone Silverio Walker MD Unavailable Sung Dunn MD PCP Reason for Visit * Reason Comments Other in [place] Encounter Details Date Type Department Care Team Description 06/22/2018 Telephone [facility] Cardiology Katharine Crum RN Other (in [place], [place]) [place] [address] [address] [place] [address] Social History Tobacco Use Types [...] she is currently in the hospital in [place], [place]. She had an episode of a fib and is currently admitted. Will ask Dr. Coulter to call Dr. Price and decide on plan. [place] [facility] [place] "THEREFORE, I am [...] would work for her for her cardioversion. [phone] in this encounter Plan of Treatment Not on fileas of this encounter Visit Diagnoses Not on filein this encounter
--- OUTSIDE RECORDS SUMMARY | 2018-06-25 12:42 | XMS REPORT | Encounter Summary ---
Author Author [facility] Organization [facility] Address Unknown Phone Unavailable Care Team Providers Care Mailing Machine Assistant Name Role Phone Silverio Walker MD Unavailable Sung Dunn MD PCP Reason for Visit * Reason Comments Labs Only Historical Labs Reviewed by PCP Encounter Details Date Type Department Care Team Description 06/23/2018 Documentation [facility] Daisy Osman Labs Only (Historical [address] Labs Reviewed by PCP) DANDRE MCLAUGHLIN [...] CBC (04/12/2018) White Blood Cells 5.4 [facility] RBC 4.28 (L) 4.35 - 5.85 [facility] Hemoglobin 13.3 [facility] Hematocrit 38 [facility] MCV [facility] MCH [facility] MCHC [facility] Plate[facility] Count 341 [facility] MPV [facility] RDW [facility] Specimen Blood - Blood Performing Organization Address City/[facility] Phone Number [facility] [address] [address] [place] * THYROID STIMULATING HORMONE-TSH (04/12/2018) TSH 2.97 [facility] Specimen Blood - Blood Performing Organization Address City/[facility] Phone Number [facility] [address] [address] [place] * MAGNESIUM (04/12/2018) Magnesium 2.2 [facility] Specimen Blood - Blood Performing Organization Address [facility] Phone Number [facility] [address] [address] [place] * COMPREHENSIVE METABOLIC PANEL (04/12/2018) Sodium 139 [facility] Potassium 4.1 [facility] Chloride 105 [facility] CO2 24 [facility] Blood Urea Nitrogen 20 (H) 7 - 18 [facility] Creatinine 0.84 [facility] Glucose 75 [facility] Calcium 9.9 [facility] Total Protein 8.3 (H) 6.4 - 8.2 [facility] Total Bilirubin 0.4 [facility] Albumin 4.8 (H) 3.2 - 4.5 [facility] Alk Phosphatase 57 [facility] AST (SGOT) 25 [facility] ALT (SGPT) 18 [facility] eGFR Non >60 [facility] eGFR [facility] Anion Gap 10 [facility] Specimen Blood - Blood Performing Organization Address City/[facility] Centercode Phone Number [facility] [address] [phone] [place] in this encounter Visit Diagnoses Not on filein this encounter
--- OUTSIDE RECORDS SUMMARY | 2018-06-25 12:42 | XMS REPORT | Clinical Summary ---
Author Author [facility] Organization [facility] Address Unknown Phone Unavailable Care Team Providers Care Senior Communications Specialist Name Role Phone Silverio Walker MD Unavailable Sung Dunn MD PCP Source Comments Some departments are not documenting in the electronic medical record. 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/06/2018 [facility] Cardiology Silverio Walker MD Encounter 05/06/2018 Hospital [...] 36.9 C (98.5 F) 01/22/2018 5:00 AM INDUSTRIAL REAL ESTATE AGENT Respiratory Rate - - Oxygen Saturation 97% 01/21/2018 11:00 PM INDUSTRIAL REAL ESTATE AGENT Inhaled Oxygen - - Concentration Weight 71.7 [...] VACCINE 08/17/2018 09/24/2017 Implants Implanted Type Area Parts Department Manager Device Expiration Model / Identifier Date Serial [...] [id number] OTHER OUTSIDE LAB Generator Serial # [id number] OTHER OUTSIDE LAB Generator Implnat Date 01/03/16 OTHER OUTSIDE LAB Device Implanted By [facility] OTHER OUTSIDE LAB EP Device [...] Dr. Price OTHER OUTSIDE LAB Name Device [place] [employer] OTHER OUTSIDE LAB Transmitter Compatible Known Diagnosed AFib Yes OTHER OUTSIDE LAB On Anticoagulation Yes OTHER OUTSIDE LAB Generator Parts Department Manager [employer] OTHER OUTSIDE LAB Narrative Performed At OTHER OUTSIDE LAB In office LINQ check Pt follows with Dr. Price. We do not follow remote. Presenting EGM: Regular tachycardia, appears likely 2:1 Aflutter, V rate 114bpm. Appears pt has been out of rhythm since 06/10/18 Events since last OV check with us on 05/27/18: 11 Tachy #[id number], all on 06/10/18. EGMs show likely AFib/flutter with RVR, occas aberrant beats vs PVC, rates 180s-190sbpm 9 AF #[id number], all 06/10-06/12/18.EGMs show AFib w RVR, V [...] Blood Narrative Performed At Performing Organization Address City/[facility] Phone Number OTHER OUTSIDE LAB * BOTOX [...] with 5 units today. Performing Organization Address City/[facility] Phone Number IN CLINIC * CT LMTD [...] paroxysmal atrial fibrillation status post ablation in [place] in 02/2016. She underwent a redo ablation [...] paroxysmal atrial fibrillation status post ablation in [place] in 02/2016. She underwent a redo ablation [...] on 05/07/2018 9:46 AM. Performing Organization Address City/[facility] Phone Number KU RAD RESULTS * CBC (04/12/2018) White Blood Cells 5.4 [facility] RBC 4.28 (L) 4.35 - 5.85 [facility] Hemoglobin 13.3 [facility] Hematocrit 38 [facility] MCV [facility] MCH [facility] MCHC [facility] Platelet Count 341 [facility] MPV [facility] RDW [facility] Specimen Blood - Blood Performing Organization Address [facility] Phone Number VIA [address] [address] [place] * THYROID STIMULATING HORMONE-TSH (04/12/2018) TSH 2.97 [facility] Specimen Blood - Blood Performing Organization Address [facility] Phone Number [facility] [address] [phone] [place] * MAGNESIUM (04/12/2018) Magnesium 2.2 [facility] Specimen Blood - Blood Performing Organization Address [facility] Phone Number [facility]IA [address] [address] [place] * COMPREHENSIVE METABOLIC PANEL (04/12/2018) Sodium 139 [facility] Potassium 4.1 [facility] Chloride 105 [facility] CO2 24 [facility] Blood Urea Nitrogen 20 (H) 7 - 18 [facility] Creatinine 0.84 [facility] Glucose 75 [facility] Calcium 9.9 [facility] Total Protein 8.3 (H) 6.4 - 8.2 [facility] Total Bilirubin 0.4 [facility] Albumin 4.8 (H) 3.2 - 4.5 [facility] Alk Phosphatase 57 [facility] AST (SGOT) 25 [facility] ALT (SGPT) 18 [facility] eGFR Non >60 [facility] eGFR [facility] Anion Gap 10 [facility] Specimen Blood - Blood Performing Organization Address City/State/Zipcode Phone Number [facility]IA [facility] [address] [place] [address] [place] * ECG-SCAN (04/07/2018 12:26 PM) Narrative Performed At Ordered by an unspecified provider. from Last 3 Months
--- OUTSIDE RECORDS SUMMARY | 2018-06-25 12:42 | XMS REPORT | Encounter Summary ---
Author Author [facility] Organization [facility] Address Unknown Phone Unavailable Care Team Providers Care Pig Farmer Name Role Phone Silverio Walker MD Unavailable Sung Dunn MD PCP Encounter Details Date Type Department Care Team Description 06/19/[address] [facility] Cardiology Jeanine Dempsey RN [facility] Med [place] [address] [place] [address] [place] [address] Social History Tobacco Use Types [...]
--- OUTSIDE RECORDS SUMMARY | 2018-06-25 12:42 | XMS REPORT | Encounter Summary ---
Author Author [facility] Organization [facility] Address Unknown Phone Unavailable Care Team Providers Care Restaurant Line Server Name Role Phone Silverio Walker MD Unavailable Sung Dunn MD PCP Encounter Details Date Type Department Care Team Description 06/22/2018 Pharmacy Visit [facility] [address] [place] [address] Social History Tobacco Use Types Packs/Day Years Used Date Never Smoker Smokeless Tobacco: Never Used Alcohol Use Drinks/Week oz/Week Comments Yes 1 Glasses of 0.6 wine Sex Assigned at Date Recorded Not on file as of this encounter Plan of Treatment Not on fileas of this encounter Visit Diagnoses Not on filein this encounter
--- OUTSIDE RECORDS SUMMARY | 2018-06-25 12:42 | XMS REPORT | Encounter Summary ---
Author Author [facility] Organization [facility] Address Unknown Phone Unavailable Care Team Providers Care [place] Steward Name Role Phone Silverio Walker MD Unavailable Sung Dunn MD PCP Reason for Visit * Reason Comments Erroneous duplicate encounter encounter-disregard Encounter Details Date Type Department Care Team Description 06/19/2018 Telephone [facility] Aliya Haskins, DIANE Erroneous [address] encounter-disregard [address] (duplicate encounter) [place] [address] Social History Tobacco Use Types Packs/Day Years Used Date Never Smoker Smokeless Tobacco: Never Used Alcohol Use Drinks/Week oz/Week Comments Yes 1 Glasses of 0.6 wine Sex Assigned at Date Recorded Not on file as of this encounter Plan of Treatment Not on fileas of this encounter Visit Diagnoses Not on filein this encounter
--- OUTSIDE RECORDS SUMMARY | 2018-06-25 12:42 | XMS REPORT | Encounter Summary ---
Author Author [facility] Organization [facility] Address Unknown Phone Unavailable Care Team Providers Care Solid Waste Landfill Technician Name Role Phone Silverio Walker MD Unavailable Sung Dunn MD PCP Encounter Details Date Type Department Care Team Description 06/23/2018 [facility]ation [facility] Marli Logan, DIANE [facility] Med [place] [address] 3rd [phone] [facility] [address] [address] [place] [address] Social History Tobacco Use Types Packs/Day Years Used Date Never Smoker Smokeless Tobacco: Never Used Alcohol Use Drinks/Week oz/Week Comments Yes 1 Glasses of 0.6 wine Sex Assigned at Date Recorded Not on file as of this encounter Plan of Treatment Not on fileas of this encounter Visit Diagnoses Not on filein this encounter
--- OUTSIDE RECORDS SUMMARY | 2018-06-25 12:42 | XMS REPORT | Encounter Summary ---
Author Author [facility] Organization [facility] Address Unknown Phone Unavailable Care Team Providers Care Sheet Roller Operator Name Role Phone Silverio Walker MD Unavailable Sung Dunn MD PCP Reason for Visit * Reason Comments Medication Follow-up review medication regimen Encounter Details Date Type Department Care Team Description 06/19/2018 Telephone [facility] Cardiology Aliya Haskins, stock dealer Follow-up [address] (review medication [address] regimen) [place] [address] Social History Tobacco Use Types [...] to finalize plans. Jeanine Dempsey RN to [place] 06/19/18 11:08 AM Placed call to patient [...] her to call today. Call back is [phone] in this encounter Plan of Treatment Not on fileas of this encounter Visit Diagnoses Not on filein this encounter
--- OUTSIDE RECORDS SUMMARY | 2018-06-25 12:43 | XMS REPORT | Encounter Summary ---
Author Author [facility] Organization [facility] Address Unknown Phone Unavailable Care Team Providers Care Polygraph Technician Name Role Phone Silverio Walker MD Unavailable Sung Dunn MD PCP Reason for Referral * Status Reason Specialty Diagnoses / Referred By Referred To Procedures Contact Contact New Request Diagnoses Vicente Coulter Paroxysmal MD atrial [address] (HCC) [place] [address] [place], [place] [employer] [address] REQUEST FOR Phone: CARDIOLOGY [phone] APPOINTMENT * Status Reason Specialty Diagnoses / Referred By Referred To Procedures Contact Contact New Request Diagnoses Vicente Coulter Paroxysmal MD atrial [address] (HCC) [place] [address] [place], [place] [employer] [address] REQUEST FOR Phone: CARDIOLOGY [phone] APPOINTMENT Reason for Visit * Reason Comments Atrial fibrillation 3 month follow up Atrial Flutter * Status Reason Specialty Diagnoses / Referred By Referred To Procedures Contact Contact New Request Diagnoses Vicente Coulter Paroxysmal MD atrial [address] (HCC) [place] [address] [place], [place] [employer] [address] REQUEST FOR Phone: CARDIOLOGY [phone] APPOINTMENT Encounter Details Date Type Department Care Team Description 05/27/2018 Office Visit [facility] Vicente Coulter MD Atrial fibrillation (3 [facility] [place] [address] month follow up); Atrial fl [address] [place] [address] [place] [address] [phone] Social History Tobacco Use Types Packs/Day Years [...] any questions or concerns, please call Dr. oCulter's nurse at [phone]. It is ok to leave a message at this number and his nurse will return your call. You can also reach us through [employer]. Call if you are having recurrent afib. in this encounter Progress Notes * Vicente Coulter MD - 05/27/2018 10:15 AM CDT Formatting of this note may be different from the original. Date of Service: 05/27/2018 Mary Roth is a 72 y.o. female. HPI I had the pleasure of seeing your patient Mary Roth in the [facility] as a part of the [facility] Cardiology [place] office today for follow up regarding her Paroxysmal Atrial Fibrillation. She is typically followed and was referred by my friend and colleague Dr. Price , her primary street light mechanic, in [facility], [place]. Ms. Roth is an exceptionally pleasant 72 [...] stenosis by duplex 05/2017Dr. Price. Shehas a [id number] score of 3:Female, HTN, and age > [...] underwent AFIB Ablation by Dr. Kelly in [place] -- Post AFIB Ablation--unclear what antiarrhythmic [...] -- 12/11/17: Telephone: Pt was hospitalized at [facility] with AFIB with RVR. Nurse from [facility] called to schedule CTA for ablation. [...] Sheng Frazier, acting as scribe for Vicente Couletr M.D. in this encounter Plan of Treatment Name Priority Associated Diagnoses Order Schedule ECG 12-LEAD Routine Paroxysmal atrial Ordered: 05/27/2018 fibrillation (HCC) as of this encounter Results * DEVICE EVALUATION - ILR (05/27/2018 11:56 AM) Generator Model # [id number] OTHER OUTSIDE LAB Generator Serial # [id number] OTHER OUTSIDE LAB Generator Implnat Date 01/03/16 OTHER OUTSIDE LAB Device Implanted By [facility] OTHER OUTSIDE LAB EP [...] Dr. Price OTHER OUTSIDE LAB Name Device [place] [employer] OTHER OUTSIDE LAB Transmitter Compatible Known Diagnosed AFib Yes OTHER OUTSIDE LAB On Anticoagulation Yes OTHER OUTSIDE LAB Generator C D Stripper [employer] OTHER OUTSIDE LAB ILR Symptom Lifetime [...] check.Pt is followed by Dr. Price in [place].We do not do remote. Presenting EGM: SB 56bpm Events since last interrogation 05/05/18: none Reviewed prior events since pt was here on 03/05/18: #[id number] AF events from 04/11/18-04/14/18.4.5hrs on 04/11/18 and [...]
--- OUTSIDE RECORDS SUMMARY | 2018-06-25 12:43 | XMS REPORT | Encounter Summary ---
Author Author [facility] Organization [facility] Address Unknown Phone Unavailable Care Team Providers Care Room Service Waiter/Waitress Name Role Phone Silverio Walker MD Unavailable Sung Dunn MD PCP Encounter Details Date Type Department Care Team Description 06/15/2018 Pharmacy Visit [facility] [address] [place] [address] Social History Tobacco Use Types Packs/Day Years Used Date Never Smoker Smokeless Tobacco: Never Used Alcohol Use Drinks/Week oz/Week Comments Yes 1 Glasses of 0.6 wine Sex Assigned at Date Recorded Not on file as of this encounter Plan of Treatment Not on fileas of this encounter Visit Diagnoses Not on filein this encounter
--- OUTSIDE RECORDS SUMMARY | 2018-06-25 12:43 | XMS REPORT | Encounter Summary ---
Author Author [facility] Organization [facility] Address Unknown Phone Unavailable Care Team Providers Care Supervisor Inspecting Name Role Phone Silverio Walker MD Unavailable Sung Dunn MD PCP Encounter Details Date Type Department Care Team Description 06/15/2018 Pharmacy [facility] [address] [place] [address] Social History Tobacco Use Types Packs/Day Years Used Date Never Smoker Smokeless Tobacco: Never Used Alcohol Use Drinks/Week oz/Week Comments Yes 1 Glasses of 0.6 wine Sex Assigned at Date Recorded Not on file as of this encounter Plan of Treatment Not on fileas of this encounter Visit Diagnoses Not on filein this encounter
--- OUTSIDE RECORDS SUMMARY | 2018-06-25 12:43 | XMS REPORT | Encounter Summary ---
Author Author [facility] Organization [facility] Address Unknown Phone Unavailable Care Team Providers Care Manager Portable Name Role Phone Silverio Walker MD Unavailable Sung Dunn MD PCP Encounter Details Date Type Department Care Team Description 05/27/2018 [facility] Cardiology Vicente Coulter MD Encounter [facility] [place] [address] [address] [place] [address] [place] [address] [phone] Social History Tobacco Use Types Packs/Day Years [...] LNQ11 OTHER OUTSIDE LAB Generator Serial # [id number] OTHER OUTSIDE LAB Generator Implnat Date 01/03/16 OTHER OUTSIDE LAB Device Implanted By [facility] OTHER OUTSIDE LAB EP Device [...] Dr. Price OTHER OUTSIDE LAB Name Device [place] [employer] OTHER OUTSIDE LAB Transmitter Compatible Known Diagnosed AFib Yes OTHER OUTSIDE LAB On Anticoagulation Yes OTHER OUTSIDE LAB Generator Lead Burner Supervisor [employer] OTHER OUTSIDE LAB ILR Symptom Lifetime [...] check.Pt is followed by Dr. Price in [place].We do not do remote. Presenting EGM: SB 56bpm Events since last interrogation 05/05/18: none Reviewed prior events since pt was here on 03/05/18: #[id number] AF events from 04/11/18-04/14/18.4.5hrs on 04/11/18 and [...]
--- OUTSIDE RECORDS SUMMARY | 2018-06-25 12:43 | XMS REPORT | Encounter Summary ---
Author Author [facility] Organization [facility] Address Unknown Phone Unavailable Care Team Providers Care Weld Inspector Name Role Phone Silverio Walker MD Unavailable Sung Dunn MD PCP Reason for Visit * Reason Comments Atrial fibrillation Atrial Flutter Encounter Details Date Type Department Care Team Description 06/17/2018 Office Visit [facility] Cardiology Vicente Coulter MD Atrial fibrillation; [facility] [place] [facility]rd [address] Atrial Flutter fl [address] [address] [place] [address] [place] [address] [phone] Social History Tobacco Use Types Packs/Day Years [...] concerns, please call Dr. Coulter's nurse at [phone]. It is ok to leave a message at this number and his nurse will return your call. You can also reach us through [place]. Baseline Amiodarone testing: PFT's with DLCO (pulmonary [...] seeing your patient Mary [facility] in the [facility] as a part of the [facility] [place] office today for follow up regarding her Paroxysmal Atrial Fibrillation. She is typically followed and was referred by my friend and colleague Dr. Price , her primary manual equipment mechanic, in [facility] [place]. Ms. Roth is an exceptionally pleasant 72 [...] artery stenosis by duplex 05/2017Lyly Mon a [id number] score of 3:Female, HTN, and age >65 yo. NOTE--she apparently has had some elevated LFTs when on amiodarone in the past. -- 06/10/18: Pt presented to [facility] ER for tachycardia and dizziness with [...] Baseline Testingto include PFTs with DLCO in [facility] [place] Ms. Roth was educated regarding plan of [...] underwent AFIB Ablation by Dr. Kelly in [place], [place] -- Post AFIB Ablation--unclear what antiarrhythmic [...] -- 12/11/17: Telephone: Pt was hospitalized at [facility] with AFIB with RVR. Nurse from [facility] called to schedule CTA for ablation. [...] continued Sotalol. -- 06/10/18: Pt presented to [facility] ER for tachycardia and dizziness with [...]
--- OUTSIDE RECORDS SUMMARY | 2018-06-25 12:43 | XMS REPORT | Encounter Summary ---
Author Author [facility] Organization [facility] Address Unknown Phone Unavailable Care Team Providers Care Zinc Chloride Operator Name Role Phone Silverio Walker MD Unavailable Sung Dunn MD PCP Reason for Referral * Status Reason Specialty Diagnoses / Referred By Referred To Procedures Contact Contact New Request Procedures Vicente Coulter, REQUEST FOR CARDIOLOGY [address] [place] [address] Encounter Details Date Type Department Care Team Description 06/15/2018 Telephone [facility] Cardiology Alethea Rader RN [facility] [place], [place] [address] Social History Tobacco Use Types Packs/Day Years [...] offered 4 pm appt at the [facility] - she will need device check and asked her to come in at 3 pm. states she was started on Cartia XT 120 mg twice daily - med list updated per review of labs in ED her serum K+ was 3.4. will have bmp at the [facility] phone [phone] fax [phone] * Telephone Encounter - Alethea Rader RN - 06/15/2018 1:36 PM CDT ----- Message from Yesy Tovar LPN sent at 06/15/2018 11:41 AM CDT ----- Regarding: MPE- Seen keith VM on triage line from Maryann with Dr. Harris office # [phone]. Said that she was seen in office [...] LNQ11 OTHER OUTSIDE LAB Generator Serial # [id number] OTHER OUTSIDE LAB Generator Implnat Date 01/03/16 OTHER OUTSIDE LAB Device Implanted By [facility] OTHER OUTSIDE LAB EP Device Followed [...] Dr. Price OTHER OUTSIDE LAB Name Device [place] [facility] OTHER OUTSIDE LAB Transmitter Compatible Known Diagnosed AFib Yes OTHER OUTSIDE LAB On Anticoagulation Yes OTHER OUTSIDE LAB Generator Data Processor [employer] OTHER OUTSIDE LAB Narrative Performed At OTHER OUTSIDE LAB In office LINQ check Pt follows with Dr. Price. We do not follow remote. Presenting EGM: Regular tachycardia, appears likely 2:1 Aflutter, V rate 114bpm. Appears pt has been out of rhythm since 06/10/18 Events since last OV check with us on 05/27/18: 11 Tachy #[id number], all on 06/10/18. EGMs show likely AFib/flutter with RVR, occas aberrant beats vs PVC, rates 180s-190sbpm 9 AF #[id number], all 06/10-06/12/18.EGMs show AFib w RVR, V rates 110s-190sbpm. Appears pt has been out of rhythm since 06/10/18 Programming changes made: none Report given to Dr. Coulter. Performing Organization Address City/State/Zipcode Phone Number OTHER OUTSIDE LAB in this encounter Visit Diagnoses Diagnosis Atrial tachycardia (HCC) - Primary Other specified cardiac dysrhythmias
--- OUTSIDE RECORDS SUMMARY | 2018-06-25 12:43 | XMS REPORT | Encounter Summary ---
Author Author [facility] Organization [facility] Address Unknown Phone Unavailable Care Team Providers Care Programming Coordinator Name Role Phone Silverio Walker MD Unavailable Sung Dunn MD PCP Reason for Visit * Reason Comments Medication Follow-up botox Encounter Details Date Type Department Care Team Description 06/01/2018 Telephone [facility] Silverio Walker MD Medication Follow-up Physicians - ENT [address] (botox) Ortho and Medical [address] [place] [address] [phone] [place] [address] Social History Tobacco Use Types [...]
--- OUTSIDE RECORDS SUMMARY | 2018-06-25 12:43 | XMS REPORT | Encounter Summary ---
Author Author [facility] Organization [facility] Address Unknown Phone Unavailable Care Team Providers Care Director Career Name Role Phone Silverio Walker MD Unavailable Sung Dunn MD PCP Encounter Details Date Type Department Care Team Description 06/15/[address] [facility] Cardiology Alethea Rader, DIANE [facility] [place] [address] Social History Tobacco Use Types [...] from Maryann with Dr. Harris office # [phone]. Said that she was seen in office this am and is having 2 to 1 atrial tach and prolonged QT. He would like her Sotalol regulated and seen keith. Call back to discuss more. in this encounter Plan of Treatment Not on fileas of this encounter Visit Diagnoses Not on filein this encounter
--- OUTSIDE RECORDS SUMMARY | 2018-06-25 12:43 | XMS REPORT | Encounter Summary ---
Author Author [facility] Organization [facility] Address Unknown Phone Unavailable Care Team Providers Care Alpine Guide Name Role Phone Silverio Walker MD Unavailable Sung Dunn MD PCP Reason for Visit * Reason Comments Medical Question "heart issues" Encounter Details Date Type Department Care Team Description 06/12/2018 Telephone [facility] Cardiology Costa Zapata RN Medical Question ("heart [facility] [place] [facility]3 3rd issues") [facility] [address] [address] [place] [address] Social History Tobacco Use Types [...] patient Message Contents Yesy Tovar LPN P [facility] Nurse Ep from patient on triage line returning or call. Returned call to patient. She states that Friday (06/10) evening she developed tachycardia & dizziness with standing. She went [facility]; HR 140s-150s. She received IV diltiazem, [...] states she has an OV with an HOSPITAL EDUCATION COORDINATOR at Dr. Price's office on Friday (06/15). [...] that Dr. Price should be privy to [facility]'s last OV note explaining the plan of [...] She confirmed that they had the 05/27 [facility] OV notes. She states the patient does not have an OV with an HOSPITAL EDUCATION COORDINATOR on Friday, rather, she has an OV with Dr. Harris. She stated she would send us patient's ILR check from today; EP RightFax number given. Will request records from [employer]. Will route to Alethea for f/u. * Telephone Encounter - Costa Zapata RN - 06/12/2018 11:24 AM CDT Returned call to patient - [facility] for CB. * Telephone Encounter - [...]
--- OUTSIDE RECORDS SUMMARY | 2018-06-25 12:43 | XMS REPORT | Encounter Summary ---
Author Author [facility] Organization [facility] Address Unknown Phone Unavailable Care Team Providers Care Editor Magazine Name Role Phone Silverio Walker MD Unavailable Sung Dunn MD PCP Reason for Visit * Reason Comments Labs Only 06/15 BMP Encounter Details Date Type Department Care Team Description 06/16/2018 [facility] Alethea Rader, DIANE Labs Only (06/15 BMP) [place] [address] [address] [place] [address] Social History Tobacco Use Types Packs/Day Years [...]
--- OUTSIDE RECORDS SUMMARY | 2018-06-25 12:43 | XMS REPORT | Encounter Summary ---
Author Author [facility] Organization [facility] Address Unknown Phone Unavailable Care Team Providers Care Instrumentation Technician Name Role Phone Silverio Walker MD Unavailable Sung Dunn MD PCP Reason for Visit * Reason Comments Records Request 06/10 ER visit at [facility] Encounter Details Date Type Department Care Team Description 06/12/2018 Documentation [facility] Cardiology Costa Zapata, DIANE Records Request (06/10 ER [facility] [place] [facility]3 3rd visit at [facility] in [address]) [address] [place] [address] Social History Tobacco Use Types Packs/Day Years Used Date Never Smoker Smokeless Tobacco: Never Used Alcohol Use Drinks/Week oz/Week Comments Yes 1 Glasses of 0.6 wine Sex Assigned at Date Recorded Not on file as of this encounter Progress Notes * Costa Zapata RN - 06/12/2018 3:25 PM CDT Records request faxed to [facility] Medical Records @ 1- [phone]. * Costa Zapata RN - 06/12/2018 3:25 PM CDT Request for the following medical records for purpose of continuity of care: Patient was seen in the Emergency Room on 06/10. Please send us the records from this visit. Please include... Discharge Summary EKGs Lab results Test results Procedure Notes Any other pertinent information Please Fax to: [facility] - [phone] Dr. Coulter Attention: Alethea Rader, RN Thank you in this encounter Plan of Treatment Not on fileas of this encounter Visit Diagnoses Not on filein this encounter
--- OUTSIDE RECORDS SUMMARY | 2018-06-25 12:43 | XMS REPORT | Encounter Summary ---
Author Author [facility] Organization [facility] Address Unknown Phone Unavailable Care Team Providers Care Body Rolling Machine Tender Name Role Phone Silverio Walker MD Unavailable Sung Dunn MD PCP Encounter Details Date Type Department Care Team Description 06/17/2018 [facility] Cardiology Vicente Coulter MD Encounter [facility] [place] [facility] [address] [place] [address] [place] [address] [phone] Social History Tobacco Use Types Packs/Day Years [...] LNQ11 OTHER OUTSIDE LAB Generator Serial # [id number] OTHER OUTSIDE LAB Generator Implnat Date 01/03/16 OTHER OUTSIDE LAB Device Implanted By [facility] OTHER OUTSIDE LAB EP Device [...] Dr. Price OTHER OUTSIDE LAB Name Device [employer] OTHER OUTSIDE LAB Transmitter Compatible Known Diagnosed AFib Yes OTHER OUTSIDE LAB On Anticoagulation Yes OTHER OUTSIDE LAB Generator Document Management Specialist [employer] OTHER OUTSIDE LAB Narrative Performed At OTHER OUTSIDE LAB In office LINQ check Pt follows with Dr. Price. We do not follow remote. Presenting EGM: Regular tachycardia, appears likely 2:1 Aflutter, V rate 114bpm. Appears pt has been out of rhythm since 06/10/18 Events since last OV check with us on 05/27/18: 11 Tachy #[id number], all on 06/10/18. EGMs show likely AFib/flutter with RVR, occas aberrant beats vs PVC, rates 180s-190sbpm 9 AF #[id number], all 06/10-06/12/18.EGMs show AFib w RVR, V rates 110s-190sbpm. Appears pt has been out of rhythm since 06/10/18 Programming changes made: none Report given to Dr. Coulter. Performing Organization Address City/State/Zipcode Phone Number OTHER OUTSIDE LAB in this encounter Visit Diagnoses Diagnosis Atrial tachycardia (HCC) Other specified cardiac dysrhythmias
--- OUTSIDE RECORDS SUMMARY | 2018-06-25 12:43 | XMS REPORT | Encounter Summary ---
Author Author [facility] Organization [facility] Address Unknown Phone Unavailable Care Team Providers Care Chemical Processing Supervisor Name Role Phone Silverio Walker MD Unavailable Sung Dunn MD PCP Encounter Details Date Type Department Care Team Description 05/27/2018 Orders Only [facility] Ama Granger MA [facility] [place] [facility] [place] [address] [address] [address] [place] [address] Social History Tobacco Use Types Packs/Day Years Used Date Never Smoker Smokeless Tobacco: Never Used Alcohol Use Drinks/Week oz/Week Comments Yes 1 Glasses of 0.6 wine Sex Assigned at Date Recorded Not on file as of this encounter Plan of Treatment Not on fileas of this encounter Visit Diagnoses Not on filein this encounter
--- OUTSIDE RECORDS SUMMARY | 2018-06-25 12:44 | XMS REPORT | Encounter Summary ---
Author Author [facility] Organization [facility] Address Unknown Phone Unavailable Care Team Providers Care Business Operations Manager Name Role Phone Silverio Walker MD Unavailable Sung Dunn MD PCP Reason for Visit * Reason Comments Lab Results BMP Encounter Details Date Type Department Care Team Description 05/05/2018 [facility] Kelsie Constantino fire chief deputy Results (BMP) [address] [place] [address] Social History Tobacco Use Types [...] City/State/Zipcode Phone Number [facility] [place] [address] [place] [address] 10A in this encounter Visit Diagnoses Diagnosis Atrial fibrillation, unspecified type (HCC)
--- OUTSIDE RECORDS SUMMARY | 2018-06-25 12:44 | XMS REPORT | Encounter Summary ---
Author Author [facility] Organization [facility] Address Unknown Phone Unavailable Care Team Providers Care Air Traffic Controller Center Name Role Phone Silverio Walker MD Unavailable Sung Dunn MD PCP Reason for Visit * Reason Comments Test/procedure Wants to schedule Cardiac CT scan Encounter Details Date Type Department Care Team Description 04/07/2018 Telephone [facility] Cardiology Marli Logan RN Test/ procedure (Wants to [facility] [place] [facility]3 [facility] [phone] scan) [address] [address] [place] [address] Social History Tobacco Use Types Packs/Day Years [...] for around May 06. Call back is [phone] in this encounter Plan of Treatment Not on fileas of this encounter Visit Diagnoses Not on filein this encounter
--- OUTSIDE RECORDS SUMMARY | 2018-06-25 12:44 | XMS REPORT | Encounter Summary ---
Author Author [facility] Organization [facility] Address Unknown Phone Unavailable Care Team Providers Care Aircraft Inspector Name Role Phone Silverio Walker MD Unavailable Sung Dunn MD PCP Reason for Referral * CTA Procedure Status Reason Specialty Diagnoses / Referred By Referred To Procedures Contact Contact No Auth Needed Cardiology Diagnoses Vicente Coulter Bhg Card Nuclear Atrial [facility] fibrillation, [id number] (HCC) [address] [place], [place] [address] rocedures [id number] Phone: CT CARDIAC STRUCTURE WO/W [phone] CONT * CTA Procedure Status Reason Specialty Diagnoses / Referred By Referred To Procedures Contact Contact New Request Cardiology Diagnoses Vicente Coulter Bhg Card Nuclear Atrial [facility] fibrillation, [id number] (HCC) [address] [place], [place] [address] rocedures [phone] Phone: CT LMTD CHEST W CARDIAC [phone] Encounter Details Date Type Department Care Team Description 03/25/2018 Orders Only [facility] Marielena Gómez RN Atrial fibrillation, Main [facility] [id number] unspecified type (HCC) [address] (Primary Dx) [place] [address] Social History Tobacco Use Types Packs/Day Years [...] paroxysmal atrial fibrillation status post ablation in [place] in 02/2016. She underwent a redo ablation [...] paroxysmal atrial fibrillation status post ablation in [place] in 02/2016. She underwent a redo ablation [...]
--- OUTSIDE RECORDS SUMMARY | 2018-06-25 12:44 | XMS REPORT | Encounter Summary ---
Author Author [facility] Organization [facility] Address Unknown Phone Unavailable Care Team Providers Care Pharmacist Name Role Phone Silverio Walker MD Unavailable Sung Dunn MD PCP Reason for Visit * Reason Comments Other CCTA requested, will call pt to schedule Encounter Details Date Type Department Care Team Description 04/07/2018 Telephone [facility] Cardiology Jaye Martínez RN Other (CCTA requested, [place] [address] will call pt to schedule) [address] [place] [address] Social History Tobacco Use Types [...] for around May 06. Call back is [phone] in this encounter Plan of Treatment Not on fileas of this encounter Visit Diagnoses Not on filein this encounter
--- OUTSIDE RECORDS SUMMARY | 2018-06-25 12:44 | XMS REPORT | Encounter Summary ---
Author Author [facility] Organization [facility] Address Unknown Phone Unavailable Care Team Providers Care Men'S Garment Fitter Name Role Phone Silverio Walker MD Unavailable Sung Dunn MD PCP Reason for Visit * Reason Comments Other post ablation CCTA - needs to be at Encounter Details Date Type Department Care Team Description 03/30/2018 Telephone [facility] Cardiology Jaye Martínez RN Other (post ablation CCTA [facility] [id number] - needs to be at ) [address] [place] [address] Social History Tobacco Use Types [...] regarding the best location to travel so ([facility] office * Telephone Encounter - Jaye Martínez [...]
--- OUTSIDE RECORDS SUMMARY | 2018-06-25 12:44 | XMS REPORT | Encounter Summary ---
Author Author [facility] Organization [facility] Address Unknown Phone Unavailable Care Team Providers Care Suit Attendant Name Role Phone Silverio Walker MD Unavailable Sung Dunn MD PCP Reason for Visit * Reason Comments Other Post ablation cta needed in April Encounter Details Date Type Department Care Team Description 03/25/2018 Telephone [facility] Cardiology Marielena Gómez RN Other ( Post ablation cta [facility] [id number] needed in April) [address] [place] [address] Social History Tobacco Use Types [...]
--- OUTSIDE RECORDS SUMMARY | 2018-06-25 12:44 | XMS REPORT | Encounter Summary ---
Author Author [facility] Organization [facility] Address Unknown Phone Unavailable Care Team Providers Care Assembly Line Robot Operator Name Role Phone Silverio Walker MD Unavailable Sung Dunn MD PCP Reason for Visit * Reason Comments Procedure Botox Encounter Details Date Type Department Care Team Description 05/06/2018 Procedure visit [facility] Silverio Walker MD Dysphonia (Primary Dx); Physicians - ENT [address] Adductor spasmodic Ortho and Medical [address] dysphonia with tremor [address] [place] [address] [phone] [place] [address] Social History Tobacco Use Types [...] this encounter Progress Notes * Daisy Dunn MA,CCC-CONSTRUCTION SAFETY CONSULTANT - 05/06/2018 1:00 PM CDT At the [...] with 5 units today. 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
--- OUTSIDE RECORDS SUMMARY | 2018-06-25 12:44 | XMS REPORT | Encounter Summary ---
Author Author [facility] Organization [facility] Address Unknown Phone Unavailable Care Team Providers Care Trench Digger Name Role Phone Silverio Walker MD Unavailable Sung Dunn MD PCP Encounter Details Date Type Department Care Team Description 05/06/2018 [facility] Cardiology Silverio Walker MD Encounter Main [facility] [place] [address] [place] [address] [phone] Social History Tobacco Use Types Packs/Day Years [...]
--- OUTSIDE RECORDS SUMMARY | 2018-06-25 12:44 | XMS REPORT | Encounter Summary ---
Author Author [facility] Organization [facility] Address Unknown Phone Unavailable Care Team Providers Care Medical Practice Assistant Name Role Phone Silverio Walker MD Unavailable Sung Dunn MD PCP Encounter Details Date Type Department Care Team Description 05/04/2018 Telephone [facility] Cardiology [facility]anesa Flowers RN [facility] [address] [place], [place] [address] Social History Tobacco Use Types Packs/Day Years [...] to our office. * Telephone Encounter - Vaensa Flowers RN - 05/04/2018 9:08 AM CDT [...]
--- OUTSIDE RECORDS SUMMARY | 2018-06-25 12:44 | XMS REPORT | Encounter Summary ---
Author Author [facility] Organization [facility] Address Unknown Phone Unavailable Care Team Providers Care Eye Surgeon Name Role Phone Silverio Walker MD Unavailable Sung Dunn MD PCP Encounter Details Date Type Department Care Team Description 04/07/2018 Orders Only [facility] Gloria Verma RN Atrial fibrillation, [facility]600 unspecified type (HCC) [address] (Primary Dx) [place] [address] Social History Tobacco Use Types [...] City/State/Zipcode Phone Number [facility] [place] [address] [place] [address] 10A in this encounter Visit Diagnoses Diagnosis Atrial fibrillation, unspecified type (HCC) - Primary
--- OUTSIDE RECORDS SUMMARY | 2018-06-25 12:44 | XMS REPORT | Encounter Summary ---
Author Author [facility] Organization [facility] Address Unknown Phone Unavailable Care Team Providers Care Pump Stitcher Name Role Phone Silverio Walker MD Unavailable Sung Dunn MD PCP Reason for Referral * CTA Procedure Status Reason Specialty Diagnoses / Referred By Referred To Procedures Contact Contact No Auth Needed Cardiology Diagnoses Vicente Coulter Bhg Card Nuclear Atrial [facility] fibrillation, [id number] unspecified type [address] ([facility]) [address] [place], [place] [address] rocAttero [id number] Phone: CT CARDIAC STRUCTURE WO/W [phone] CONT * CTA Procedure Status Reason Specialty Diagnoses / Referred By Referred To Procedures Contact Contact No Auth Needed Cardiology Diagnoses Vicente Coulter Bhg Card Nuclear Atrial [facility] fibrillation, [id number] ([facility]) [address] [place], [place] [address] rocAttero [id number] Phone: CT CARDIAC STRUCTURE WO/W [phone] CONT * CTA Procedure Status Reason Specialty Diagnoses / Referred By Referred To Procedures Contact Contact New Request Cardiology Diagnoses Vicente Coulter Bhg Card Nuclear Atrial [facility] fibrillation, [id number] unspecified type [address] ([facility]) [place] [address] [place], [place] [address] rocAttero [id number] Phone: CT LMTD CHEST W CARDIAC [phone] * CTA Procedure Status Reason Specialty Diagnoses / Referred By Referred To Procedures Contact Contact New Request Cardiology Diagnoses Vicente Coulter Bhg Card Nuclear Atrial [facility] fibrillation, [id number] [facility] ([facility]) [address] [place], [place] [address] rocedSlidePay [id number] Phone: CT LMTD CHEST W CARDIAC [phone] Reason for Visit * CTA Procedure Status Reason Specialty Diagnoses / Referred By Referred To Procedures Contact Contact No Auth Needed Cardiology Diagnoses Vicente Coulter Bhg Card Nuclear Atrial [facility] fibrillation, [id number] [facility] ([facility]) [address] [place], [place] [address] rocedSlidePay [phone] Phone: CT CARDIAC STRUCTURE WO/W [phone] CONT Encounter Details Date Type Department Care Team Description 05/06/2018 Hospital [facility] Vicente Coulter MD Encounter Hospital Radiology [address] [facility] 2nd fl [address] [place] [address] [place] [address] [phone] Social History Tobacco Use Types Packs/Day Years [...] paroxysmal atrial fibrillation status post ablation in [place] in 02/2016. She underwent a redo ablation [...] paroxysmal atrial fibrillation status post ablation in [place] in 02/2016. She underwent a redo ablation [...] on 05/07/2018 9:46 AM. Performing Organization Address [facility] Phone Number [facility] RAD RES[facility] * CT [...] on 05/06/2018 4:01 PM. Performing Organization Address [facility] Phone Number KU RAD RESULTS in this [...]
--- OUTSIDE RECORDS SUMMARY | 2018-06-25 12:44 | XMS REPORT | Encounter Summary ---
Author Author [facility] Organization [facility] Address Unknown Phone Unavailable Care Team Providers Care Freelance Art Director Name Role Phone Silverio Walker MD Unavailable Sung Dunn MD PCP Encounter Details Date Type Department Care Team Description 03/25/2018 Procedure Pass [facility] Radiology [facility] 2nd fl [address] [place] [address] Social History Tobacco Use Types Packs/Day Years Used Date Never Smoker Smokeless Tobacco: Never Used Alcohol Use Drinks/Week oz/Week Comments Yes 1 Glasses of 0.6 wine Sex Assigned at Date Recorded Not on file as of this encounter Plan of Treatment Not on fileas of this encounter Visit Diagnoses Not on filein this encounter
--- OUTSIDE RECORDS SUMMARY | 2018-06-25 12:44 | XMS REPORT | Encounter Summary ---
Author Author [facility] Organization [facility] Address Unknown Phone Unavailable Care Team Providers Care Butt Presser Name Role Phone Silverio Walker MD Unavailable Sung Dunn MD PCP Encounter Details Date Type Department Care Team Description 03/30/2018 Documentation [facility] Elina Grijalva, RN [facility] [place] [address] Social History Tobacco Use Types Packs/Day Years [...]
--- OUTSIDE RECORDS SUMMARY | 2018-06-25 12:44 | XMS REPORT | Encounter Summary ---
Author Author [facility] Organization [facility] Address Unknown Phone Unavailable Care Team Providers Care Claims Supervisor Name Role Phone Silverio Walker MD Unavailable Sung Dunn MD PCP Encounter Details Date Type Department Care Team Description 03/25/2018 Procedure Pass [facility] Radiology [facility] 2nd fl [address] [place] [address] Social History Tobacco Use Types Packs/Day Years Used Date Never Smoker Smokeless Tobacco: Never Used Alcohol Use Drinks/Week oz/Week Comments Yes 1 Glasses of 0.6 wine Sex Assigned at Date Recorded Not on file as of this encounter Plan of Treatment Not on fileas of this encounter Visit Diagnoses Not on filein this encounter
== END 2018-06-23 09:08 | disposition home or self-care (01) | DRG 310 ==
LOC: EDUNIT# 15:05 → ER 15:07 → ICU 15:35 → UNDOADMOB 15:35 → CATH 16:40 → ICU 16:40 → INTOOBSV 06-22 10:51 → OBSVTOIN 06-22 10:51 → CATH 06-22 10:54 → ICU 06-22 10:55 → UNDODISIN 06-23 09:08
PROVIDERS: ADMIT Internal Medicine Cardiovascular Disease; ATTEND Internal Medicine Cardiovascular Disease
PROC: 5A2204Z Restoration of Cardiac Rhythm, Single (ICD-10-PCS; principal; 2018-06-22)
DX: I48.92 Unspecified atrial flutter (principal); R00.0 Tachycardia, unspecified; I95.9 Hypotension, unspecified; I49.3 Ventricular premature depolarization; I49.1 Atrial premature depolarization; I25.10 Atherosclerotic heart disease of native coronary artery without angina pectoris; I65.23 Occlusion and stenosis of bilateral carotid arteries; E05.90 Thyrotoxicosis, unspecified without thyrotoxic crisis or storm; I10 Essential (primary) hypertension; E78.00 Pure hypercholesterolemia, unspecified; K21.9 Gastro-esophageal reflux disease without esophagitis; M19.91 Primary osteoarthritis, unspecified site; M54.9 Dorsalgia, unspecified; F41.9 Anxiety disorder, unspecified; F32.9 Major depressive disorder, single episode, unspecified; Z79.01 Long term (current) use of anticoagulants; Z86.79 Personal history of other diseases of the circulatory system
CPT/HCPCS: 36415; 71045; 80053; 83735; 83874; 84484; 85025; 85027; 85610; 85730; 87081; 92960; 93005; 93041; 96360

== ENCOUNTER → 2018-07-27 | Outpatient (CLI) | payer MEDICARE, OTHER ==
[~2018-07-27] MED LIST changes: +AMLO5TAB7 PO; +BIOT1TAB PO; +DILT120T11 PO; +LEVO5TAB28 PO; +OMEG-90 PO; +POTA99TA21 PO
== END ==
LOC: RT 13:58
PROVIDERS: ATTEND Internal Medicine Cardiovascular Disease
DX: I48.0 Paroxysmal atrial fibrillation (principal); Z92.29 Personal history of other drug therapy
CPT/HCPCS: 94060; 94726; 94729

== ENCOUNTER → 2018-09-09 | Outpatient (RCR) | payer MEDICARE, OTHER | END | disposition home or self-care (01) | LOC: CR 08-10 08:31 → CR3 08-12 07:32 | PROVIDERS: ATTEND Internal Medicine Cardiovascular Disease | DX: Z29.8 Encounter for other specified prophylactic measures (principal) ==

== ENCOUNTER 2018-10-12 13:35 | Outpatient (RCR) | payer MEDICARE, OTHER | END 2018-10-16 | disposition home or self-care (01) | LOC: CR3 13:35 | PROVIDERS: ATTEND Internal Medicine Cardiovascular Disease | DX: Z29.8 Encounter for other specified prophylactic measures (principal) ==

== ENCOUNTER 2018-10-19 16:36 | Outpatient (RCR) | payer MEDICARE, OTHER | END 2018-11-18 | disposition home or self-care (01) | LOC: CR3 16:36 | PROVIDERS: ATTEND Internal Medicine Cardiovascular Disease | DX: Z29.8 Encounter for other specified prophylactic measures (principal) ==

== ENCOUNTER 2018-11-25 08:13 | Outpatient (RCR) | payer MEDICARE, OTHER ==
[~2018-11-25 08:13] MED LIST changes: -AMLO5TAB7 PO; +AMLO5TAB9 PO
== END 2018-12-23 | disposition home or self-care (01) ==
LOC: CR3 08:13
PROVIDERS: ATTEND Internal Medicine Cardiovascular Disease
DX: Z29.8 Encounter for other specified prophylactic measures (principal)

== ENCOUNTER 2019-03-01 07:33 | Outpatient (RCR) | payer MEDICARE, OTHER | END 2019-03-03 | disposition home or self-care (01) | LOC: CR3 07:33 | PROVIDERS: ATTEND Internal Medicine Cardiovascular Disease | DX: Z29.8 Encounter for other specified prophylactic measures (principal) ==

== ENCOUNTER 2019-03-31 07:43 | Outpatient (RCR) | payer MEDICARE, OTHER ==
[~2019-03-31 07:43] MED LIST changes: -SOTA80TA PO; +STL80T PO
== END 2019-04-07 | disposition home or self-care (01) ==
LOC: CR3 07:43
PROVIDERS: ATTEND Internal Medicine Cardiovascular Disease
DX: Z29.8 Encounter for other specified prophylactic measures (principal)

== ENCOUNTER 2019-04-28 07:35 | Outpatient (RCR) | payer MEDICARE, OTHER | END 2019-05-26 | disposition home or self-care (01) | LOC: CR3 07:35 | PROVIDERS: ATTEND Internal Medicine Cardiovascular Disease | DX: Z29.8 Encounter for other specified prophylactic measures (principal) ==

== ENCOUNTER → 2019-05-25 | Outpatient (CLI) | payer MEDICARE, OTHER ==
--- NOTE | 2019-05-25 12:27 | Diagnostic Imaging Report ---
PROCEDURE: MRI lumbar spine. TECHNIQUE: Multiplanar, multisequence MRI of the lumbar spine was performed without contrast. INDICATION: Low back pain, history of stenosis and previous surgery. The exam is compared with previous MRI performed 09/20/2015. FINDINGS: Bipedicular screws at L3, L4 and L5 with associated decompressive laminectomies again noted. The conus is at the L1-L2 disc space level unchanged. The lower thoracic cord and conus appeared unremarkable. There is no intrathecal abnormality. There is no clumping of the nerve roots of the cauda equina. No paravertebral mass, hemorrhage or fluid collection. Again noted at the L2-L3 level is disc desiccation, disc bulge, endplate osteophytes, thickened ligamenta flava and hypertrophic facet arthrosis with resultant severe central canal stenosis and at least moderate degrees of bilateral lateral recess narrowing and moderate to severe right and [id number] left neural foraminal stenosis. There is Modic type degenerative changes across the articular endplates but no acute marrow signal pathology. T2 hyperintense renal cysts in the lower poles are unchanged. The aorta is nonaneurysmal where visualized. IMPRESSION: There is severe canal and substantial foraminal and recess stenoses at the L2-L3 level increased in severity from the previous exam. This was found just above the stable posterior fusion and decompressive laminectomy extending L3 through L5. No other substantial finding. Dictated by: Dictated on workstation # [id number]
== END ==
LOC: RAD 08:34
PROVIDERS: ATTEND Physician Assistant
DX: M48.061 Spinal stenosis, lumbar region without neurogenic claudication (principal); Z98.1 Arthrodesis status
CPT/HCPCS: 72148

== ENCOUNTER 2019-06-02 09:08 | Emergency (ER) | payer MEDICARE, OTHER ==
[~2019-06-02] VITALS: Ht 160 cm; Wt 68.9 kg
[2019-06-02] MEDS ORDERED: ASPIRIN 81 MG CHEW (CHILDREN'S ASA) ONE (09:17)
--- OUTSIDE RECORDS SUMMARY | 2019-06-02 09:20 | XMS REPORT | Encounter Summary ---
Author Author [facility] Organization [facility] Address Unknown Phone Unavailable Care Team Providers Care High School Professional Name Role Phone Silverio Walker MD Unavailable Sung Dunn MD PCP Encounter Details Care Team Description Date Type Department Alethea Rader RN 05/17/[address] [facility] [address] [place] [address] Social History Date Tobacco Use Types Packs/Day Years Used Never Smoker Smokeless Tobacco: Never Used Drinks/Week oz/Week Comments Alcohol Use 1 Glasses of wine 0.6 Yes Sex Assigned at Date Recorded Not on file Industry Job Start Date Occupation Not on file Not on file Not on file Travel End Travel History Travel Start No recent travel history available. documented as of this encounter Miscellaneous Notes * Telephone Encounter - Alethea Rader RN - 05/17/2019 8:32 AM CDT returned call to [facility] she had called and left message on friday relayed that she had figured out the answer to a medication question * Telephone Encounter - Alethea Rader RN - 05/17/2019 8:32 AM CDT ----- Message from Daisy Osman sent at 05/14/2019 3:38 PM CDT ----- Regarding: MPE-Asked for Alethea Call back is [phone] documented in this encounter Plan of Treatment Not on filedocumented as of this encounter Visit Diagnoses Not on filedocumented in this encounter
--- OUTSIDE RECORDS SUMMARY | 2019-06-02 09:20 | XMS REPORT | Clinical Summary ---
Author Author [facility] Organization [facility] Address Unknown Phone Unavailable Care Team Providers Care Wood Sash And Frame Carpenter Name Role Phone Silverio Walker MD Unavailable Sung Dunn MD PCP Source Comments Some departments are not documenting in the electronic medical record. If you d o not see the information that you expected, contact Release of Information in [facility] [employer] Information Management department at [phone] for further assistan ce in locating additional records.[facility] Allergies Comments Active Allergy Reactions Severity Noted Date Wide complex tachycardia 09/2017 at OSH Flecainide SEE COMMENTS Low 01/21/2018 Penicillin G HIVES Medium 04/02/2017 Sulfa (Sulfonamide HIVES Medium 04/02/2017 Antibiotics) Tetracycline HIVES Medium 04/02/2017 Medications End Date Status Medication Sig Dispensed Refills Start Date Active alprazolam (XANAX) 1 mg Take 1 mg by 0 PO tablet mouth twice daily. 1 BY MOUTH TWICE A DAY Active apixaban (ELIQUIS) 5 mg Take 5 mg by 0 tab tablet mouth twice daily. Active sertraline (ZOLOFT) 50 mg Take 50 mg by 0 tablet mouth daily. Active busPIRone (BUSPAR) 10 mg Take 1 tablet 0 tablet by mouth 8 twice daily. Active fish oil- omega 3-DHA/EPA Take 1 0 300/1,000 mg capsule capsule by mouth twice daily with meals. Active raloxifene (EVISTA) 60 mg Take 60 mg by 0 tablet mouth daily. 8 Active enalapril (VASOTEC) 20 mg Take 1 tablet 90 tablet 3 tablet by mouth 8 daily. Active amiodarone (CORDARONE) Take one 90 tablet 3 200 mg tablet tablet by 8 mouth daily. Take with food. Active Levocetirizine (XYZAL) 5 Take 1 tablet 0 mg tab by mouth daily. Active fenofibrate micronized(+) Take 200 mg 0 (LOFIBRA) 200 mg capsule by mouth every morning. Take with food. Active Magnesium 250 mg tab Take 1 tablet 0 by mouth at bedtime daily. Active diltiazem CD (CARDIZEM Take 240 mg 0 CD) 240 mg capsule by mouth daily. Active montelukast (SINGULAIR) Take 10 mg by 0 10 mg tablet mouth at bedtime daily. Active omeprazole DR(+) Take 40 mg by 0 (PRILOSEC) 40 mg capsule mouth daily before breakfast. Active acetaminophen/diphenhydra Take 2 0 mine (TYLENOL PM EXTRA tablets by STRENGTH PO) mouth at bedtime daily. Active atorvastatin (LIPITOR) 20 Take 20 mg by 0 mg tablet mouth daily. 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 Encounters Care Team Description Date Type Specialty Alethea Rader RN 05/17/2019 Telephone Cardiology Daisy Osman Labs Only (Labs ordered by willl enter and route to the EP motor pool driver ) 05/06/2019 Documentation Cardiology Marli Logan RN 05/05/2019 Telephone Cardiology Vicente Coulter MD 05/04/2019 Hospital Cardiology Encounter Vicente Coulter MD Paroxysmal Afib (6 month follow up) 05/04/2019 Office Visit Cardiology Hailey Harding RN 04/21/2019 Telephone Cardiology Kayla Baldwin MD Dysphonia (Primary Dx); Adductor spasmodic dysphonia with tremor 04/07/2019 Procedure visit Otolaryngology from Last 3 Months Family History Medical History Relation Name Comments Angina Father Heart Attack Father High Cholesterol Father Anxiety Mother Depression Mother Hypertension Mother Mental Illness Mother Relation Name Status Comments Father Mother Social History Date Tobacco Use Types Packs/Day Years Used Never Smoker Smokeless Tobacco: Never Used Drinks/Week oz/Week Comments Alcohol Use 1 Glasses of wine 0.6 Yes Sex Assigned at Date Recorded Not on file Industry Job Start Date Occupation Not on file Not on file Not on file Travel End Travel History Travel Start No recent travel history available. Last Filed Vital Signs Reading Time Taken Comments Vital Sign 146/92 05/04/2019 10:56 AM CDT Blood Pressure 60 05/04/2019 10:44 AM CDT Pulse 36.7 C (98 F) 07/29/2018 6:11 PM CDT Temperature - - Respiratory Rate 98% 07/29/2018 6:11 PM CDT Oxygen Saturation - - Inhaled Oxygen Concentration 71.7 kg (158 lb) 05/04/2019 10:44 AM CDT Weight 160 cm (5' 3") 05/04/2019 10:44 AM CDT Height 27.99 05/04/2019 10:44 AM CDT Body Mass Index Plan of Treatment Health Maintenance Due Date Last Done Comments HEPATITIS C SCREENING 1945 PHYSICAL (COMPREHENSIVE) 1953 EXAM DTAP/TDAP VACCINES (1 - 1964 Tdap) BREAST CANCER SCREENING 1986 COLORECTAL CANCER 1996 SCREENING SHINGLES RECOMBINANT 1996 VACCINE (1 of 2) OSTEOPOROSIS 2011 SCREENING/MONITORING PNEUMONIA (PCV13/PPSV23) 2011 VACCINES (1 of 2 - PCV13) INFLUENZA VACCINE 08/17/2019 09/24/2017 Implants Device Identifier Shelf Expiration Date Model / Serial / Lot Implanted Type Area Manufactur er Loop Recorder Loop Recorder Linq Other [employer] Procedures Comments Procedure Name Priority Date/Time Associated Diagnosis THYROID STIMULATING Routine 05/05/2019 Paroxysmal atrial HORMONE-TSH fibrillation (HCC) Encounter for monitoring amiodarone therapy FREE T4 (FREE THYROXINE) Routine 05/05/2019 Paroxysmal atrial ONLY fibrillation (HCC) Encounter for monitoring amiodarone therapy PATIENT FROM CLINIC - Routine 05/04/2019 Paroxysmal atrial DEVICE EVALUATION - ILR 11:22 AM CDT fibrillation (HCC) INTRGTN ECG/QRS Routine 05/04/2019 10:56 AM CDT ECG-SCAN 05/04/2019 12:00 AM CDT CO CHEMODENERVATION Routine 04/07/2019 Dysphonia MUSCLE LARYNX UNILAT 1:30 PM CDT Adductor spasmodic W/EMG dysphonia with tremor from Last 3 Months Results * THYROID STIMULATING HORMONE-TSH (05/05/2019) TSH 5.81 (H) 0.45 - 5.33 [facility] Specimen Blood - Blood Narrative Performed At Performing Organization Address City/[facility]/Zipcode Phone Number [facility] [address] [place] [address] 10A * FREE T4 (FREE THYROXINE) ONLY (05/05/2019) T4-Free 0.82 [facility] Specimen Blood - Blood Narrative Performed At Performing Organization Address City/[facility]/Zipcode Phone Number [facility] [address] [place] [address] 10A * DEVICE EVALUATION - ILR (05/04/2019 11:22 AM CDT) Generator Model [id number] OTHER OUTSIDE # LAB Generator [id number] OTHER OUTSIDE Serial # LAB Generator 01/03/16 OTHER OUTSIDE Implnat Date LAB Device [facility] OTHER OUTSIDE Implanted By LAB EP Device Other OTHER OUTSIDE Followed By LAB ILR Symptom Four 7.5 min Episodes OTHER OUTSIDE Duration LAB ILR Tachy Rate 162 OTHER OUTSIDE LAB ILR Tachy 16 OTHER OUTSIDE Duration LAB ILR Pause 3 OTHER OUTSIDE Duration LAB ILR Wilbert Rate 30 OTHER OUTSIDE LAB ILR Wilbert 4 OTHER OUTSIDE Duration LAB ILR AT Events n/a OTHER OUTSIDE Since Last LAB Interrogation ILR AT Lifetime n/a OTHER OUTSIDE Events as of LAB ILR AF Rate AF only OTHER OUTSIDE LAB ILR AF Duration episodes > 6 mins OTHER OUTSIDE LAB EP Device Dr. Price OTHER OUTSIDE Followed by LAB Name Device [employer] OTHER OUTSIDE [place] [facility] Transmitter Compatible Known Diagnosed Yes OTHER OUTSIDE AFib LAB On Yes OTHER OUTSIDE Anticoagulation LAB Generator [employer] OTHER OUTSIDE Chef'S Assistant LAB ILR Date of 05/04/19 OTHER OUTSIDE Last Daily LAB Connection ILR Symptom 0 OTHER OUTSIDE Events Since LAB Last Interrogation ILR Symptom 1 OTHER OUTSIDE Lifetime Events LAB as of ILR Tachy 0 OTHER OUTSIDE Events Since LAB Last Interrogation ILR Tachy 146 OTHER OUTSIDE Lifetime Events LAB as of ILR Pause 4 OTHER OUTSIDE Events Since LAB Last Interrogation ILR Pause 20 OTHER OUTSIDE Lifetime Events LAB as of ILR Wilbert 0 OTHER OUTSIDE Events Since LAB Last Interrogation ILR Wilbert 35 OTHER OUTSIDE Lifetime Events LAB as of ILR AF Events 0 OTHER OUTSIDE Since Last LAB Interrogation ILR AF Lifetime 0 OTHER OUTSIDE Events as of LAB ILR Percent 0 OTHER OUTSIDE Time in AT/AF LAB Events Since Last Interrogation ILR Percent 768 OTHER OUTSIDE Time in AT/AF LAB Lifetime of Events as of ILR Lifetime 05/04/19 OTHER OUTSIDE Events as of LAB Datetion Specimen Narrative Performed At OTHER OUTSIDE LAB [facility] clinic Reached EOS on April 02, 2019 [05/04/2019 11:23:07 AM - PROSPER BREWSTER] 4 pause events show undersensing of SR at most sensitive setting EOS reached 04/02/19, follows w. Dr Santos "won't replace " per Dr Price. Last pause event recorded was April 2019 noted in remote data. Report to Dr Coulter in clinic. Performing Organization Address City/State/Zipcode Phone Number OTHER OUTSIDE LAB * ECG/QRS (05/04/2019 10:56 AM CDT) QRS DURATION 84 OTHER OUTSIDE LAB Performing Organization Address City/State/Zipcode Phone Number OTHER OUTSIDE LAB * ECG-SCAN (05/04/2019 12:00 AM CDT) Narrative Performed At Ordered by an unspecified provider. * CO CHEMODENERVATION MUSCLE LARYNX UNILAT W/EMG (04/07/2019 1:30 PM CDT) Narrative Performed At Kayla Baldwin MD 04/07/20191:58 PM IN CLINIC BOTOX INJECTION PROCEDURE NOTE Comments:The patient's anterior neck was prepped with alcohol. 1 mL of 4% lidocaine was injected through the cricothyroid membrane for anaesthesia.Using a 27 gauge, Yvon-coated EMG needle, the left TA muscle was identified and position was confirmed with a recruitment maneuver.2.5 units of Botox in 0.1 ml was injected. Patient Response:The patient tolerated the procedure well. Total injected=2.5 units Botox wasted:0.75 units Performing Organization Address City/State/[employer] Phone Number IN CLINIC from Last 3 Months Insurance Type Payer Benefit Subscriber ID Effective Phone Address Plan / Dates Group Medicare MEDICARE MEDICARE xxxxxxxxxxx 2011-P PART A AND resent B MUTUAL OF [employer]BB[employer] MUTUAL OF xxxxxx-xx 2011- ABBY Present Guarantor Name Account Relation to Date of Phone Billing Address Type Patient Mary Roth Personal/F Self 1945 [phone] [address] [facility] [address] ([place]) [place] [address] Advance Directives Patient Rolling Attendant Explanation Type Date Recorded Advance 01/01/2018 11:54 AM Directive/DPOA Date Inactivated Comments Code Status Date Activated 07/29/2018 8:32 PM Full Code 07/29/2018 8:34 AM Provider has discussed Code Status No, discussion not w/Patient or Family? necessary based on Dx 01/22/2018 2:30 PM Full Code 01/21/2018 4:20 PM Provider has discussed Code Status Yes w/Patient or Family?
--- OUTSIDE RECORDS SUMMARY | 2019-06-02 09:20 | XMS REPORT | Encounter Summary ---
Author Author [facility] Organization [facility] Address Unknown Phone Unavailable Care Team Providers Care Product Analyst Name Role Phone Silverio Walker MD Unavailable Sung Dunn MD PCP Encounter Details Care Team Description Date Type Department Vicente Coulter MD [address] [facility] [place] [address] [phone] 05/04/2019 Hospital [facility] [address] [place] [address] Social History Date Tobacco Use Types Packs/Day [...] history available. documented as of this encounter Medications at Time of Discharge Start Date End Date Medication Sig Dispensed Refills acetaminophen/diphenhydra Take 2 0 mine (TYLENOL PM EXTRA tablets by STRENGTH PO) mouth at bedtime daily. alprazolam (XANAX) 1 mg Take 1 mg by 0 PO tablet mouth twice daily. 1 BY MOUTH TWICE A DAY 07/29/2018 amiodarone (CORDARONE) Take one 90 tablet 3 200 mg tablet tablet by mouth daily. Take with food. apixaban (ELIQUIS) 5 mg Take 5 mg by 0 tab tablet mouth twice daily. atorvastatin (LIPITOR) 20 Take 20 mg by 0 mg tablet mouth daily. 12/29/2017 busPIRone (BUSPAR) 10 mg Take 1 tablet 0 tablet by mouth twice daily. diltiazem CD (CARDIZEM Take 240 mg 0 CD) 240 mg capsule by mouth daily. 06/15/2018 enalapril (VASOTEC) 20 mg Take 1 tablet 90 tablet 3 tablet by mouth daily. fenofibrate micronized(+) Take 200 mg 0 (LOFIBRA) 200 mg capsule by mouth every morning. Take with food. fish oil- omega 3-DHA/EPA Take 1 0 300/1,000 mg capsule capsule by mouth twice daily with meals. Levocetirizine (XYZAL) 5 Take 1 tablet 0 mg tab by mouth daily. Magnesium 250 mg tab Take 1 tablet 0 by mouth at bedtime daily. montelukast (SINGULAIR) Take 10 mg by 0 10 mg tablet mouth at bedtime daily. omeprazole DR(+) Take 40 mg by 0 (PRILOSEC) 40 mg capsule mouth daily before breakfast. 05/21/2018 raloxifene (EVISTA) 60 mg Take 60 mg by 0 tablet mouth daily. sertraline (ZOLOFT) 50 mg Take 50 mg by 0 tablet mouth daily. documented as of this encounter Plan of Treatment Not on filedocumented as of this encounter Procedures Comments Procedure Name Priority Date/Time Associated Diagnosis PATIENT FROM CLINIC - Routine 05/04/2019 Paroxysmal atrial DEVICE EVALUATION - ILR 11:22 AM CDT fibrillation (HCC) INTRGTN documented in this encounter Results * DEVICE EVALUATION - ILR (05/04/2019 11:22 AM CDT) [facility] Signature Generator Model [id number] OTHER OUTSIDE # LAB Generator [id number] OTHER OUTSIDE Serial # LAB Generator 01/03/16 OTHER OUTSIDE Implnat Date LAB Device [facility] [place] OTHER OUTSIDE Implanted By LAB EP Device [...] LAB Name Device [employer] OTHER OUTSIDE [place] [facility] Transmitter Compatible Known Diagnosed Yes OTHER OUTSIDE AFib LAB On Yes OTHER OUTSIDE Anticoagulation LAB Generator [employer] OTHER OUTSIDE Unit Reactor Operator LAB ILR Date of 05/04/19 OTHER OUTSIDE [...] Address City/State/Zipcode Phone Number OTHER OUTSIDE LAB documented in this encounter Visit Diagnoses Diagnosis Paroxysmal atrial fibrillation (HCC) Atrial fibrillation documented in this encounter
--- OUTSIDE RECORDS SUMMARY | 2019-06-02 09:20 | XMS REPORT | Encounter Summary ---
Author Author [facility] Organization [facility] Address Unknown Phone Unavailable Care Team Providers Care Beef Grader Name Role Phone Silverio Walker MD Unavailable Sung Dunn MD PCP Reason for Visit * Reason Comments Procedure Botox TA Encounter Details Care Team Description Date Type Department Kayla Baldwin MD [address] [facility] [address] [place] [address] Dysphonia (Primary Dx); Adductor spasmodic dysphonia with tremor 04/07/2019 Procedure visit [facility] [address] [place] [address] Social History Date Tobacco Use Types Packs/Day [...] history available. documented as of this encounter Last Filed Vital Signs Reading Time Taken Comments Vital Sign 134/82 04/07/2019 1:44 PM CDT Blood Pressure 68 04/07/2019 1:44 PM CDT Pulse - - Temperature - - Respiratory Rate - - Oxygen Saturation - - Inhaled Oxygen Concentration 71.7 kg (158 lb) 04/07/2019 1:44 PM CDT Weight 162.6 cm (5' 4") 04/07/2019 1:44 PM CDT Height 27.12 04/07/2019 1:44 PM CDT Body Mass Index documented in this encounter Progress Notes * Daisy Dunn MA,CCC-[employer] - 04/07/2019 1:30 PM CDT At the request of the physician, I assisted with this procedure. T * Kayla Baldwin MD - 04/07/2019 1:30 PM CDT Date of Service: 04/07/2019 Subjective: Mary Roth is a 73 y.o. female. History of Present Illness Ms. Roth is here for her botox injection. She reports about 3 weeks of breathi ness followed by 3 weeks of a better voice. She would like to reduce her dose t o 2.5 units one side. Review of Systems Constitutional: Negative. HENT: Positive for voice change. Eyes: Negative. Respiratory: Negative. Cardiovascular: Negative. Gastrointestinal: Negative. Endocrine: Negative. Genitourinary: Negative. Musculoskeletal: Negative. Skin: Negative. Allergic/Immunologic: Negative. Neurological: Negative. Hematological: Negative. Psychiatric/Behavioral: Negative. Objective: acetaminophen/diphenhydramine (TYLENOL PM EXTRA STRENGTH PO) Take 2 tablets by mouth at bedtime daily. alprazolam (XANAX) 1 mg PO tablet Take 1 mg by mouth twice daily. 1 BY MOUTH TWICE A DAY amiodarone (CORDARONE) 200 mg tablet Take one tablet by mouth daily. Take wi th food. apixaban (ELIQUIS) 5 mg tab tablet Take 5 mg by mouth twice daily. atorvastatin (LIPITOR) 20 mg tablet Take 20 mg by mouth daily. busPIRone (BUSPAR) 10 mg tablet Take 1 tablet by mouth twice daily. diltiazem CD (CARDIZEM CD) 240 mg capsule Take 240 mg by mouth daily. enalapril (VASOTEC) 20 mg tablet Take 1 tablet by mouth daily. fenofibrate micronized(+) (LOFIBRA) 200 mg capsule Take 200 mg by mouth ever y morning. Take with food. fish oil- omega 3-DHA/EPA 300/1,000 mg capsule Take 1 capsule by mouth twice daily with meals. Levocetirizine (XYZAL) 5 mg tab Take 1 tablet by mouth daily. Magnesium 250 mg tab Take 1 tablet by mouth at bedtime daily. montelukast (SINGULAIR) 10 mg tablet Take 10 mg by mouth at bedtime daily. omeprazole DR(+) (PRILOSEC) 40 mg capsule Take 40 mg by mouth daily before b reakfast. raloxifene (EVISTA) 60 mg tablet Take 60 mg by mouth daily. sertraline (ZOLOFT) 50 mg tablet Take 50 mg by mouth daily. Vitals: 04/07/19 1344 BP: 134/82 Pulse: 68 Weight: 71.7 kg (158 lb) Height: 162.6 cm (64") Body mass index is 27.12 kg/m. Physical Exam See PROCEDURE note Assessment and Plan: ASSESSMENT: 1. Adductor spasmodic dysphonia PLAN: Ms. Roth tolerated the procedure well. I did reduce her dose to 2.5 units (lef t side only) today. She will call in two weeks to report on her voice. She milly l return as needed for injections. documented in this encounter Procedure Notes * Kayla Baldwin MD - 04/07/2019 1:30 PM CDT Associated Order(s): SD CHEMODENERVATION MUSCLE LARYNX UNILAT W/EMG Procedure(s): SD CHEMODENERVATION MUSCLE LARYNX UNILAT W/EMG Pre-Procedure Diagnose(s): Dysphonia; Adductor spasmodic dysphonia with tremor BOTOX INJECTION PROCEDURE NOTE Comments: The patient's anterior neck was prepped with alcohol. 1 mL of 4% lid ocaine was injected through the cricothyroid membrane for anaesthesia. Using a 27 gauge, Yvon-coated EMG needle, the left TA muscle was identified and positi on was confirmed with a recruitment maneuver. 2.5 units of Botox in 0.1 ml was injected. Patient Response: The patient tolerated the procedure well. Total injected=2.5 units Botox wasted: 0.75 units documented in this encounter Plan of Treatment Not on filedocumented as of this encounter Procedures Comments Procedure Name Priority Date/Time Associated Diagnosis SD CHEMODENERVATION Routine 04/07/2019 Dysphonia MUSCLE LARYNX UNILAT 1:30 PM CDT Adductor spasmodic W/EMG dysphonia with tremor documented in this encounter Results * SD CHEMODENERVATION MUSCLE LARYNX UNILAT W/EMG (04/07/2019 1:30 [...] units Botox wasted:0.75 units Performing Organization Address City/State/Zipcode Phone Number IN CLIN[facility] documented in this encounter Visit Diagnoses Diagnosis Dysphonia - Primary Adductor spasmodic dysphonia with tremor Other diseases of larynx documented in this encounter
--- OUTSIDE RECORDS SUMMARY | 2019-06-02 09:20 | XMS REPORT | Encounter Summary ---
Author Author [facility] Organization [facility] Address Unknown Phone Unavailable Care Team Providers Care Assembly And Packing Supervisor Name Role Phone Silverio Walker MD Unavailable Sung Dunn MD PCP Encounter Details Care Team Description Date Type Department Alethea Rader RN 02/01/2019 Telephone [facility] [address] [place] [address] Social History Date Tobacco Use Types Packs/Day [...] Telephone Encounter - Alethea Rader RN - 02/01/2019 9:51 AM CDT relayed we had received her thyroid studies and they looked within normal limits . Mary states she had received message from endocrinology confirming this infor nate she is due to see Dr Coulter in April and will call scheduling to arrange appt * Telephone Encounter - Alethea Rader RN - 02/01/2019 9:51 AM CDT ----- Message from Vanesa Flowers RN sent at 12/02/2018 10:45 AM BOARD SETTER ----- Regarding: MPE- discuss Thyroid Patient's manager asset stopped her biotin as she believed this was causing th e abnormal TSH levels. She is supposed to have redrawn around this time. Are the y OK? ----- Message ----- From: Yesy Tovar LPN Sent: 12/02/2018 10:25 AM To: Mac Nurse Ep Subject: MPE- discuss Thyroid VM from patient on triage line. She would like to discuss her Thyroid. documented in this encounter Plan of Treatment Not on filedocumented as of this encounter Visit Diagnoses Not on filedocumented in this encounter
--- OUTSIDE RECORDS SUMMARY | 2019-06-02 09:20 | XMS REPORT | Encounter Summary ---
Author Author [facility] Organization [facility] Address Unknown Phone Unavailable Care Team Providers Care Credit Balance Specialist Name Role Phone Silverio Walker MD Unavailable Sung Dunn MD PCP Reason for Visit * Reason Comments Labs Only Labs ordered by Dr.Emert lane enter and route to the EP cesspool cleaner Encounter Details Care Team Description Date Type Department Daisy Osman Labs Only (Labs ordered by Dr.Emert lane enter and route to the EP cesspool cleaner ) 05/06/2019 Documentation The [address] [id number] Social History Date Tobacco Use Types Packs/Day [...] history available. documented as of this encounter Plan of Treatment Not on filedocumented as of this encounter Procedures Comments Procedure Name Priority Date/Time Associated Diagnosis THYROID STIMULATING Routine 05/05/2019 Paroxysmal atrial HORMONE-TSH fibrillation (HCC) Encounter for monitoring amiodarone therapy FREE T4 (FREE THYROXINE) Routine 05/05/2019 Paroxysmal atrial ONLY fibrillation (HCC) Encounter for monitoring amiodarone therapy documented in this encounter Results * THYROID STIMULATING HORMONE-TSH (05/05/2019) TSH 5.81 (H) 0.45 - 5.33 [facility] Specimen Blood - Blood Narrative Performed At Performing Organization Address City/State/Zipcode Phone Number [facility] [address] [place] [address] 10A * FREE T4 (FREE THYROXINE) ONLY (05/05/2019) T4-Free 0.82 [facility] Specimen Blood - Blood Narrative Performed At Performing Organization Address City/State/Zipcode Phone Number [facility] [address] [place], [place] [id number] 10A documented in this encounter Visit Diagnoses Diagnosis Paroxysmal atrial fibrillation (HCC) Atrial fibrillation Encounter for monitoring amiodarone therapy Encounter for therapeutic drug monitoring documented in this encounter
--- OUTSIDE RECORDS SUMMARY | 2019-06-02 09:20 | XMS REPORT | Encounter Summary ---
Author Author [facility] Organization [facility] Address Unknown Phone Unavailable Care Team Providers Care Prosthetics Lab Technician Name Role Phone Silverio Walker MD Unavailable Sung Dunn MD PCP Reason for Referral * (Routine) Referred By Contact Referred To Contact Status Reason Specialty Diagnoses / Procedures Vicente Coulter MD [address] [place] [id number] New Request Procedures REQUEST FOR CARDIOLOGY APPOINTMENT Reason for Visit * Reason Comments Paroxysmal Afib 6 month follow up * (Routine) Referred By Contact Referred To Contact Status Reason Specialty Diagnoses / Procedures Vicente Coulter MD [address] [address] New Request Procedures REQUEST FOR CARDIOLOGY APPOINTMENT Encounter Details Care Team Description Date Type Department Vicente Coulter MD [address] [address] [phone] Paroxysmal Afib (6 month follow up) 05/04/2019 Office Visit The [facility] [address] [place] [address] Social History Date Tobacco Use Types Packs/Day [...] Pressure 60 05/04/2019 10:44 AM CDT Pulse - - Temperature - - Respiratory Rate - - Oxygen Saturation - - Inhaled Oxygen Concentration 71.7 kg (158 lb) 05/04/2019 10:44 AM CDT Weight 160 cm (5' 3") 05/04/2019 10:44 AM CDT Height 27.99 05/04/2019 10:44 AM CDT Body Mass Index documented in this encounter Patient Instructions * Patient Instructions* Marli Logan RN - 05/04/2019 10:30 AM CDT Talk with your primary or endocrinology about rechecking your thyroid labs. Follow up with Dr Coulter as needed documented in this encounter Progress Notes * Vicente Coulter MD - 05/04/2019 10:30 AM CDT Date of Service: 05/04/2019 Mary Roth is a 73 y.o. female. HPI I had the pleasure of seeing your patient Mary Roth in the [facility] as a part of the [facility] f or follow up regarding her Paroxysmal Atrial Fibrillation. She is typically followed and was referred by my friend and colleague Dr. Price, her primary anti air warfare operations officer, in [facility]. Ms. Roth is an exceptionally pleasant 73y.o. Female who is accompanied by her equally pleasant spouse. The past medical history and data below has been reviewed and updated by me wi th new events for today's visit. Her PMHx briefly includes:Paroxysmal AFIB S/P Ablationin Arnoldo 02/2016 --> RE-DO RFA (01/21/18) -->05/2018-Recurrent Atypical AFL on Sotalol; Moderate LA Dilatation; [...] nonobstructive carotid artery stenosis by duplex 05/2017Dr. Marji. Mon a [id number] score of 3:Female, HTN, and age >65 yo. NOTE--she apparently has had some elevated LFTs when on amiodarone in the past. To Review Detailed Updated PMHx see below the ASSESSMENT AND PLAN section of yeni s note. Note-- Amiodarone initiated 06/2018 for recurrent atrial arrhythmias post AFIB ab lation refractory to Sotalol Note-- as of 04/2019, last episode of atrial arrhythmias was atrial tachycardia i n 07/2018. She STATES she has been doing well and has not had any heart racing or palpitati ons. She says she feels very fatigued and like she does not have energy. She says thi s occurs on a daily basis. She says it is not only associated with exertion but occurs at any time. She says that they thought at one time that her thyroid looked abnormal, reporte dly the follow-up test was normal and no therapy was warranted. She says she checks her blood pressure at home which is approximately 120/80 mmH g. She says she checks her pulse at home which is 65-70 bpm. She denies any chest discomfort, shortness of breath, palpitations, lightheadedn ess, near syncope or syncope, PND or orthopnea. FHx, SHx and ROS documented and I have reviewed, with some pertinent features to include: No FHx of premature CAD. Sheis a Non-Smoker. Most pertinent ROS is included/discussed throughout the note, e.g. HPI and A/P. ASSESSMENT AND PLAN: -- Persistent RecurrentAtrial Tachycardiawith 2:1 Conduction--Post AFIB Abla tion -- Paroxysmal AFIB S/P Ablation (02/2016) with RE-DO AFIB RFA (01/21/18) -- T wave inversionon baseline asymptomatic ECG -- Normal LV Function -- Nonobstructive CAD -- [employer] Reveal LinQ Implantable Looping Monitor device implantation ( 6) Dr. Price -- CAD -- Prior Wide-Complex Tachycardia on Flecainide -->No recurrences -- Hypertension -- Anticoagulation -- Hyperlipidemia -- Spasmodic Dysphonia -- Low back pain with interventricular disc disease Ms. Roth reportedly had no recurrent tachypalpitations or arrhythmias. She den ies any lightheadedness. She denies any chest discomfort shortness of breath PN D orthopnea. She has no symptoms of heart failure. HOWEVER, she states she has "no energy." Her heart rates are not bradycardic. Her blood pressure is under good control per her descriptions. Again she has gongora d no documented arrhythmias through her device and her device is still functiona l although it does not work with remote monitoring. Even though it has reached EOS it is still recording. As noted her Medtronic LinQ Implantable Monitor device is at EOS. I concur with Dr. Joseph that reimplantation is not warranted since she is been doing well clinically and will likely have symptoms with recurrent atrial arrhythmias. Aga in although her device is at EOS and still collects data. But she has to come i n for in person interrogation to retrieve that data. Therefore I offered device explantation although informed her of the fact Dr. Price does both implantation and explantation. She plans on having it explanted with Dr. Price in the fut e. She remains on amiodarone. Her TFTs were abnormal in January. Apparently repeat testing locally showed that they were normal. Given her symptoms of "no energy" and fatigue I recommended that she have them r eassessed especially since she is on amiodarone. We will continue amiodarone for atrial arrhythmias at her current dosing of 200 mg daily. I think the next 6 to 12 months if she continues to be arrhythmia bo e I would consider decreasing the dose to 200 mg Friday through Friday or thousa nd milligrams a week, which would be down from 1400 mg/week. At this time she will follow-up as needed. Of course at Dr. Price discretion I will see her at any time and work her in accordingly or if she contacts her offi ce with issues or concerns. Her blood pressure is elevated today however at home it is been under excellent control therefore will not make any changes at this time. She denies any chest discomfort etc. PLAN: -- She will have her TSH level reassessed by her PMD. -- She will remain on Amiodarone. -- She will have her blood pressure machine checked to ensure it is accurate. -- I asked her to call our office with any new or recurrent symptoms. Ms. Roth was educated regarding plan of care. She was instructed to call our of ruba with any questions or concerns, as well as to notify us of any new or worse hillary symptoms. She verbalized understanding. I appreciate the opportunity to participate in the care of your patient. Please do not hesitate to contact me directly if you have any questions or furth er insights into her care. I have scheduled her follow-up with me PRN. DETAILED UPDATED PMHx: ~ 2012: Per Pt she thinks her AFIB dates back to ~ 2012. -- 2014: Wide Complex Tachycardia whileon Flecainide-->Flecainide Discontinued and Cardiac Catheterization pursued.-->No recurrent wide- complex tachycardia. --10/30/15: Cardiac catheterization with Dr. Price with nonobstructive disea se -- 12/2015: Medtronic Reveal LinQ Implantable Looping Monitor device Implantation by Dr. Price -- 02/2016: AFIB Ablationand reported right-sided CTI ablationat OSH-she Appa rently underwent AFIB Ablation by Dr. Kelly in [place], [place] -- Post AFIB Ablation--unclear what antiarrhythmic drug therapy she was on it fo r how long. ALTHOUGH,except for one brief episode of AFIB last year (2015), she apparently did not have significant recurrent atrial fibrillation until rachael und 09/2017 -- 09/2017: Recurrent AFIB-->09/23/17 Cardioversion-->Dr. Price initiated her on Flecainide--wide-complex tachycardia noted while on Flecainide.>Therefore Flecainide wasdiscontinued. -- : Recurrent AFIB-->initiated on Multaq -- 11/03/17: Cardioversion on Multaq for recurrent AFIB -- 11/20/2017: OV with Dr. Price-->Pt back in coarse AFIB -->patient apparently had stopped her Multaq at some point prior to her recurrent AFIB presentation. At that time Dr. Price reinitiated Multaq -- 11/21/17: Cardioversion back on Multaq for a day and referred her for EP cons ultation to discuss further options regarding her AFIB management. Toprol-XL w as increased to 50 mg BID -- 11/2017: Sotalol 80 mg twice daily initiated by Dr. Price after had continued recurrent AFIB despite Multaq therapy. -- 12/09/17: Cardioversion after recurrent AFIB on sotalol. Sotalol dose increa sed to 120 mg in the morning and 80 mg at night for a QTC of 476 ms She has been on long-standing Toprol-XL therapy as well as Diltiazem. She has been on anticoagulation. -- 11/24/17: Initial EP Consultation: After lengthy discussion regarding an A blation, she would like to think about pursuing a procedure or alternative plan and will call our office with her decision. I asked her to speak with Dr. Price regarding her ECG -- 11/27/17: Pt called and wished to pursue an ablation on 12/10 -- 12/02/17: Pt called an cancelled Ablation due to transportation issues -- 12/11/17: Telephone: Pt was hospitalized at [facility] with AFIB with RVR. Nurse from [facility] called to schedule CTA for ablation. Pt underwent unsucce ssful CVRT and Sotalol was increased to 120 mg BID. Multaq and Metoprolol were r eportedly DC'ed during hospitalization. Ablation was scheduled for 01/21 -- 01/01/18: OV (Dr. Coulter): Pt wished to pursue re-do AFIB Ablation -- 01/21/18: ROISO: LVEF 55%, no IAN thrombus, no significant valvular abnormalit ies or pericardial effusion noted -- 01/21/18: Limited [...] ablation done in years past was still intact.I do note there was extensive scarring present. -- 03/05/18: OV (Dr. Coulter): Pt was doing exceptionally well after re-do ablati on. Continued Sotalol with plan to DC after three months -- 04/15/18: Cardioversion by Dr. Price: Dr. Price described AFL -- 05/06/18: RA was moderately dilated, LA was severely dilated, no discrete pu lmonary vein ostial stenosis noted -- 06/10/18: Pt presented to [facility] ER for tachycardia and dizziness with standing. She reported HRs in the 95-115 bpm range.Was an atypical AFL with 2: 1 conduction. She received IV diltiazem, then was discharged on Diltiazem 1 20 qd. -- 06/15/18: Pt saw Dr. Harris and Diltiazem was increased to 120 mg BID and pt was Worked-In to see me today (Dr. Coulter). -- : OV (Dr. Coulter):StoppedSotalol -->STARTED AMIODARONE.IncreasedDiltiazem to 240 mg in the morning and 120 mg at night. --06/21/18:[facility] ER with complaints of low blood pressure. Medi cations adjusted. And proceed with cardioversion the next day -- 06/22/18:Cardioversion restoring sinus rhythm done in [place], [place] by Dr. Price --06/23/18:[facility] ER tachypalpitations low blood pressure feeling poorly. --07/12/18:[facility] presentation with tachypalpitations. -- 07/27/18: Negative PFTs, spirometry was within normal limits, lung volume we re within normal limits, diffusion capacity was within normal limits. -- 07/28/18: OV (Dr. Coulter): Pt was agreeable to being admitted for cardioversio n with temporary pacemaker and possible PPM if needed. -- 07/29-: Admit for Persistent Atrial Tachycardia and Cardioversion: Succe ssful DC syncrhonous cardioversion with 300 joules and placement of temporary pa cemaker, which was removed post cardioversion Amiodarone decreased to 200 mg jass ly and Diltiazem was continued. -- 08/19/18: Phone call with Costa Zapata RN: Dr. Price initiated Furosemide fo r pedal edema. Pt revealed she was mistakenly taking Amiodarone 200 mg BID after being discharged --> instructed pt to take Amiodarone 200 mg daily. -- 10/28/18: OV (Dr. Coulter): Continued with Amiodarone and continued to monitor for recurrent arrhythmias through LINQ device. -- 01/2019: Labs suggested high TSH or hypothyroidism. Referred to PMD. Then re ferred to endocrinology. On therapy. Continuing amiodarone. Vitals: 05/04/19 1044 Weight: 71.7 kg (158 lb) Height: 1.6 m (5' 3") Body mass index is 27.99 kg/m. 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 HENT: Negative. Eyes: Negative. Cardiovascular: Negative. Respiratory: Negative. Endocrine: Negative. Hematologic/Lymphatic: Negative. Skin: Negative. Musculoskeletal: Negative. Gastrointestinal: Negative. Genitourinary: Negative. Neurological: Negative. Psychiatric/Behavioral: Negative. Allergic/Immunologic: Positive for environmental allergies. Physical Exam Constitutional: She is in no acute distress, resting comfortably. Skin/Integument: Warm and dry. Eyes: PERRL, sclera are non-icteric and no xanthelasmas noted. ENT: Hearing is intact, Oropharynx is clear and moist. Heme/Lym/Immun: Supple neck, without thyromegaly. Respiratory-Pulmonary/Chest: Effort normal and breath sounds normal. No respira tory distress or accessory muscle use. No obvious tracheal deviation. Clear to auscultation bilaterally. Cardiovascular: No evidence of increased jugular venous pressure, carotids are 2+/4+ equal bilaterally, without obvious bruit. Regular rhythm, S1, S2. I do n ot appreciate any significant murmur today. No heaves, thrills or rubs. Musc/Skeletal-Extremities: Without significant peripheral edema. With what appe ars to be full ROM. Device Site: Is in her anterior chest region and well-healed. Neuro: Patient is alert and oriented to person, place, and time. Psych: Patient does not appear anxious, she appears appropriate, with normal no n-pressured speech and what appears to be appropriate judgement Cardiovascular Studies ECG today demonstrates sinus rhythm at 60 bpm, T wave inversion V1 through V3 wi thout significant change prior tracings. Curves Reveal LinQ Implantable Looping Monitor Full device check performed wi th reprogramming which I have extensively reviewed. Changes, if done, as discuss ed below and is detailed in other dictation/note. Device went EOS on 04/01/2019 but still has dated to retreat. Since her last office visit she is had for "jaspreet se" events. No symptom activated events and no atrial arrhythmias. The pause e vents are all under sensing at the most sensitive setting. Last event was 6 8. The electrograms clearly show QRS is just small QRSs that are understands. Problems Addressed Today No diagnosis found. Current Medications (including today's revisions) acetaminophen/diphenhydramine (TYLENOL PM EXTRA STRENGTH PO) Take 2 tablets by mouth at bedtime daily. alprazolam (XANAX) 1 mg PO tablet Take 1 mg by mouth twice daily. 1 BY MOUTH TWICE A DAY amiodarone (CORDARONE) 200 mg tablet Take one tablet by mouth daily. Take wi food. apixaban (ELIQUIS) 5 mg tab tablet [...] mg by mouth daily. Documentation recorded by Kenzie Guzman, acting as scribe for Vicente Alejo documented in this encounter Miscellaneous Notes * Addendum Note - Marli Logan RN - 05/04/2019 10:30 AM CDT Addended by: MARLI LOGAN on: 05/04/2019 02:53 PM Modules accepted: SmartSet documented in this encounter Plan of Treatment Order Schedule Name Type Priority Associated Diagnoses Ordered: 05/04/2019 ECG 12-LEAD ECG Routine Paroxysmal atrial fibrillation (HCC) Essential hypertension H/O amiodarone therapy documented as of this encounter Procedures Comments Procedure Name Priority Date/Time Associated Diagnosis ECG/QRS Routine 05/04/2019 10:56 AM CDT ECG-SCAN 05/04/2019 12:00 AM CDT documented in this encounter Results * ECG/QRS (05/04/2019 10:56 AM CDT) QRS DURATION 84 OTHER OUTSIDE LAB Performing Organization Address City/State/Zipcode Phone Number OTHER OUTSIDE LAB * ECG-SCAN (05/04/2019 12:00 AM CDT) Narrative Performed At Ordered by an unspecified provider. documented in this encounter Visit Diagnoses Diagnosis Paroxysmal atrial fibrillation (HCC) - Primary Atrial fibrillation Essential hypertension Unspecified essential hypertension H/O amiodarone therapy Personal history of other drug therapy documented in this encounter
--- OUTSIDE RECORDS SUMMARY | 2019-06-02 09:20 | XMS REPORT | Encounter Summary ---
Author Author [facility] Organization [facility] Address Unknown Phone Unavailable Care Team Providers Care Plate Driller Name Role Phone Silverio Walker MD Unavailable Sung Dunn MD PCP Reason for Visit * Reason Comments Appointment botox Encounter Details Care Team Description Date Type Department Silverio Walker MD [address] Orth[facility] [address] [place] [address] [phone] Appointment (botox) 02/17/2019 Telephone The [facility] [address] [place] [phone] Social History Date Tobacco Use Types Packs/Day [...] Telephone Encounter - Brielle Raya RN - 02/17/2019 10:22 AM CDT Returned patient call. She asked if Dr. Walker might switch sides for her next botox injection; she states she loses her voice for 4-5 days after her injectio ns. Advised patient we will discuss changing her injection with Dr. Walker whe n she arrives for her next appointment. Usually losing her voice right after re ceiving the injection means the medication was injected into the correct spot an d that is a side effect. Patient voiced understanding with this information. Verified next botox appoint ment on 03/31 at 2:00pm. She will call again if she has any further questions. documented in this encounter Plan of Treatment Not on filedocumented as of this encounter Visit Diagnoses Not on filedocumented in this encounter
--- OUTSIDE RECORDS SUMMARY | 2019-06-02 09:20 | XMS REPORT | Encounter Summary ---
Author Author [facility] Organization [facility] Address Unknown Phone Unavailable Care Team Providers Care Oil Heaterman Name Role Phone Silverio Walker MD Unavailable Sung Dunn MD PCP Encounter Details Care Team Description Date Type Department Marli Logan RN [phone] 05/05/2019 Telephone The [facility] [address] [place] [address] Social History Date Tobacco Use Types Packs/Day [...] Telephone Encounter - Alethea Rader RN - 05/12/2019 5:14 PM CDT tsh, free t4 results faxed to Dr Vanessa as noted below * Telephone Encounter - Marli Logan RN - 05/05/2019 11:55 AM CDT Orders faxed to [facility] at [phone]. Patient contacted. Once results receiv ed, they will be faxed to Dr Shona Vanessa at [phone] * Telephone Encounter - Marli Logan RN - 05/05/2019 11:54 AM CDT ----- Message from Yesy Tovar LPN sent at 05/05/2019 11:15 AM CDT ----- Regarding: MPE- lab request VM from patient on triage line. MPE told her yesterday that he wanted her thyroid checked. Endo would like MPE to order the test. She would like orders sent to [facility]. documented in this encounter Plan of Treatment Not on filedocumented as of this encounter Results * FREE T4 (FREE THYROXINE) ONLY (05/05/2019) T4-Free 0.82 [facility] Specimen Blood - Blood Narrative Performed At Performing Organization Address [facility]/Zipcode Phone Number [facility] [address] [place] [address] 10A * THYROID STIMULATING HORMONE-TSH (05/05/2019) TSH 5.81 (H) 0.45 - 5.33 [facility] Specimen Blood - Blood Narrative Performed At Performing Organization Address City/[facility] Phone Number [facility] [address] [place] [address] 10A documented in this encounter Visit Diagnoses Diagnosis Paroxysmal atrial fibrillation (HCC) - Primary Atrial fibrillation Encounter for monitoring amiodarone therapy Encounter for therapeutic drug monitoring documented in this encounter
--- OUTSIDE RECORDS SUMMARY | 2019-06-02 09:20 | XMS REPORT | Encounter Summary ---
Author Author [facility] Organization [facility] Address Unknown Phone Unavailable Care Team Providers Care Disk Operator Name Role Phone Silverio Walker MD Unavailable Sung Dunn MD PCP Encounter Details Care Team Description Date Type Department Hailey Harding RN 04/21/2019 Telephone The [facility] [address] [facility] [place] [address] Social History Date Tobacco Use Types Packs/Day [...] encounter Miscellaneous Notes * Telephone Encounter - Hailey Harding RN - 04/21/2019 12:09 PM CDT Updated patient on next OV. Patient agreeable to date/time/loc No further questions or concerns at this time * Telephone Encounter - Hailey Harding RN - 04/21/2019 12:08 PM CDT ----- Message from Yesy Tovar LPN sent at 04/21/2019 11:33 AM CDT ----- Regarding: MPE- appt ? VM from patient on triage line. She lost her card and needs to know when her appointment is in April. documented in this encounter Plan of Treatment Not on filedocumented as of this encounter Visit Diagnoses Not on filedocumented in this encounter
--- OUTSIDE RECORDS SUMMARY | 2019-06-02 09:21 | XMS REPORT | Encounter Summary ---
Author Author [facility] Organization [facility] Address Unknown Phone Unavailable Care Team Providers Care Air Shovel Operator Name Role Phone Silverio Walker MD Unavailable Sung Dunn MD PCP Reason for Visit * Reason Comments Other Encounter Details Care Team Description Date Type Department Silverio Walker MD [address] Ortho/Med [facility] [address] [place], [place] [id number] Other 12/21/[address] [facility] [address] [place] [address] Social History Date Tobacco Use [...] Telephone Encounter - Brielle Raya RN - 12/21/2018 9:43 AM PREPARATION ROOM WORKER Patient wanted a prescription for something like botox to take for her vocal noble mors to hold her over until her appointment on Jan 06. Advised patient she shou ld come in every three months for an injection instead of every four months; we do not have any medication to reduce her tremors. The injections only last for three months. We will discuss this with Dr. Walker when she comes in for her n ext botox injection. Patient voiced understanding and I have scheduled her for December and March for b otox injections with Dr. Walker. ARATION ROOM WORKER * Telephone Encounter - Orly Licona - 12/21/2018 9:33 AM PREPARATION ROOM WORKER pt called regarding voice concerns and would like to know if there is a prescrip tions that could help, call [phone]. ARATION ROOM WORKER documented in this encounter Plan of Treatment Not on filedocumented as of this encounter Visit Diagnoses Not on filedocumented in this encounter
--- OUTSIDE RECORDS SUMMARY | 2019-06-02 09:21 | XMS REPORT | Encounter Summary ---
Author Author [facility] Organization [facility] Address Unknown Phone Unavailable Care Team Providers Care Warrant Clerk Name Role Phone Silverio Walker MD Unavailable Sung Dunn MD PCP Reason for Visit * Reason Comments Labs Only TSH,T4 reviewed by Encounter Details Care Team Description Date Type Department Daisy Osman Labs Only (TSH,T4 reviewed by ) 01/26/[address] [facility] [address] [place] [address] Social History Date Tobacco Use [...] Comments Procedure Name Priority Date/Time Associated Diagnosis TOTAL T3 Routine 01/25/2019 (TRIIODOTHYRONINE) THYROID STIMULATING Routine 01/25/2019 HORMONE-TSH FREE T4 (FREE THYROXINE) Routine 01/25/2019 ONLY documented in this encounter Results * FREE T4 (FREE THYROXINE) ONLY (01/25/2019) T4-Free 0.87 [facility] Specimen Blood - Blood Narrative Performed At Performing Organization Address City/State/Zipcode Phone Number [facility] [address] [facility] , [place] [address] 10A * TOTAL T3 (TRIIODOTHYRONINE) (01/25/2019) T3 (Total) 3.10 [facility] Specimen Blood - Blood Narrative Performed At Performing Organization Address [facility] Phone Number [facility] [address] [place], [place] [phone] 10A * THYROID STIMULATING HORMONE-TSH (01/25/2019) TSH 4.14 [facility] Specimen Blood - Blood Narrative Performed At Performing Organization Address City/[facility] Phone Number [facility] [address] [place], [place] [phone] 10A documented in this encounter Visit Diagnoses Not on filedocumented in this encounter
--- OUTSIDE RECORDS SUMMARY | 2019-06-02 09:21 | XMS REPORT ---
Author Author Migration, Doctor Organization [facility] Address Unknown Phone Unavailable Care Team Providers Care Clinical Leader Name Role Phone Migration, Doctor Unavailable Unavailable PROBLEMS Type Condition ICD9-CM Code [id number] Code Onset Dates Condition Status SNOMED Code Problem Pain in joint, pelvic region and thigh 719.45 Active 039816344 ALLERGIES No Information ENCOUNTERS Encounter Location Date Diagnosis [facility] [address] [place] [address] [id number] Dec, Dental examination Z01.20 [facility] [address] [place] [address] [id number] Sep, Dental examination Z01.20 [facility] [address] [place] [address] [phone] May, Dental examination Z01.20 [facility] [address] [place] [address] [phone] Apr, Dental examination Z01.20 [facility] [id number] [place] [address] [id number] Jan, Encounter for dental examination Z01.20 [facility] [id number] [place] [address] [id number] Jan, Encounter for dental examination Z01.20 [facility] [address] [place] [address] [phone] Jan, Dental examination Z01.20 [facility] [address] [id number] [place] [address] [id number] Dec, Encounter for dental examination Z01.20 [facility] [address] [id number] [place] [address] [phone] Dec, Encounter for dental examination Z01.20 [facility] [address] [place] [address] [id number] Dec, Dental examination Z01.[address] [id number] [phone] Nov, Encounter for dental examination Z01.20 [facility] [address] [id number][place] [phone] Nov, Encounter for dental examination Z01.[address] [id number][place] [phone] Sep, Encounter for dental examination Z01.20 [facility] [address] [facility] [id number], [place] [address] Feb, [facility] [address] [facility] [id number], [place] [address] Feb, [facility] [address] [id number][place] [phone] Sep, [facility] [address] [id number][place] [phone] Sep, [facility] [address] [facility] [id number], [place] [address] Sep, [facility] [address] [facility] [id number], [place] [address] Sep, [facility] [address] [id number][place] [phone] May, [facility] [address] [id number], [place] [phone] Apr, [facility] [address] [id number][place] [phone] Apr, [facility] [address] [id number], [place] [address] Apr, [facility] [address] [id number], [place] [phone] Feb, [facility] [address] [id number], [place] [phone] Jan, [facility] [id number] [place] [address] [phone] Jan, [facility] [address] [id number][place] [phone] Dec, [facility] [address] [id number] [place] [address] Sep, [facility] [place] [facility] [address] [id number] [place] [address] 30 Oct, 2010 [facility] [place] [facility] [address] [id number] [place] [address] Oct, [facility] [place] [facility] [address] [id number] [place] [address] Oct, [facility] [place] [facility] [address] [id number] [place] [address] Oct, [facility] [place] [facility] [address] [id number] [place] [address] Oct, [facility] [place] [facility] [address] [id number], [place] [address] Oct, [facility] [place] [facility] [address] [id number] [place] [address] Oct, [facility] [place] [facility] [address] [id number], [place] [address] Oct, [facility] [place] [facility] [address] [id number], [place] [address] Sep, [facility] [place] [facility] [address] [id number], [place] [address] Sep, [facility] [place] [facility] [address] [id number] [place] [address] Sep, [facility] [place] [facility] [address] [id number], [place] [address] Aug, [facility] [place] [facility] [address] [id number], [place] [address] Aug, [facility] [place] [facility] [address] [id number] [place] [address] Aug, [facility] [address] [facility] [id number] [place] [address] Aug, [facility] [address] [facility] [id number] [place] [address] Jul, IMMUNIZATIONS No Known Immunizations SOCIAL HISTORY Never Assessed REASON FOR VISIT EMR-[facility] PLAN OF CARE VITAL SIGNS MEDICATIONS Medication Instructions Dosage Frequency Start Date End Date Duration Status Mobic 15 mg 15 mg by Oral route 1 time per dayNo other ibuprofen products with this Sep, Active pravastatin 40 mg 1 tablet by Oral route 1 time per dayTake at bedtime. Avoid grapefruit juice and products with grapefruit. Jan, Active hydrochlorothiazide-lisinopril 20-12.5 mg take 1 tablet by Oral route 2 times per day May, Active Abilify 2 mg 1 tablet by Oral route 1 time per day Apr, Active Xanax 1 mg 1 tablet by Oral route 2 times per day Apr, Active Lexapro 20 mg take 1 tablet (20 mg) by oral route once daily May, Active Aciphex 20 mg take 1 tablet (20 mg) by oral route once daily after the morning meal May, Active RESULTS No Results PROCEDURES No Known procedures INSTRUCTIONS MEDICATIONS ADMINISTERED No Known Medications MEDICAL (GENERAL) HISTORY Type Description Date Medical [...]
--- OUTSIDE RECORDS SUMMARY | 2019-06-02 09:21 | XMS REPORT ---
Author Author Migration, Doctor Organization [facility] Address Unknown Phone Unavailable Care Team Providers Care Director Emergency Name Role Phone Migration, Doctor Unavailable Unavailable PROBLEMS Type Condition ICD9-CM Code FJE11-TK Code Onset Dates Condition Status SNOMED Code Problem Pain in joint, pelvic region and thigh 719.45 Active [id number] ALLERGIES No Information ENCOUNTERS Encounter Location Date Diagnosis [facility] [address] [place] [address] [phone] Dec, Dental examination Z01.20 [facility] [address] [place] [address] [phone] Sep, Dental examination Z01.20 [facility] [address] [place] [address] [id number] May, Dental examination Z01.20 [facility] [address] [place] [address] [id number] Apr, Dental examination Z01.20 [facility] [address] [id number] [place] [address] [phone] Jan, Encounter for dental examination Z01.20 [facility] [address] [id number] [place] [address] [id number] Jan, Encounter for dental examination Z01.20 [facility] [id number] [place] [address] [id number] Jan, Dental examination Z01.20 [facility] [address] [id number] [place] [address] [id number] Dec, Encounter for dental examination Z01.20 [facility] [address] [id number] [place] [address] [id number] Dec, Encounter for dental examination Z01.20 [facility] [address] [place] [address] [id number] Dec, Dental examination Z01.[address] [id number][place] [phone] Nov, Encounter for dental examination Z01.20 [facility] [address] [id number], [place] [phone] Nov, Encounter for dental examination Z01.[address] [id number][place] [phone] Sep, Encounter for dental examination Z01.20 [facility] [address] [facility] [id number], [place] [address] Feb, [facility] [address] [facility] [id number], [place] [address] Feb, [facility] [address] [id number], [place] [phone] Sep, [facility] [address] [id number], [place] [id number] Sep, [facility] [address] [facility] [id number], [place] [address] Sep, [facility] [address] [facility] [id number], [place] [address] Sep, [facility] [address] [id number], [place] [phone] May, [facility] [address] [id number], [place] [phone] Apr, [facility] [address] [id number], [place] [id number] Apr, [facility] [address] [id number], [place] [address] Apr, [facility] [address] [id number], [place] [phone] Feb, [facility] [address] [id number], [place] [id number] Jan, [facility] [id number] [place] [address] [id number] Jan, [facility] [address] [id number], [place] [id number] Dec, [facility] [address] [id number] [place] [address] Sep, [facility] [place] [facility] [address] [id number] [place] [address] 30 Oct, 2010 [facility] [place] [facility] [address] [id number] [place] [address] Oct, [facility] [place] [facility] [address] [id number] [place] [address] Oct, [facility] [place] [facility] [address] [id number] [place] [address] Oct, [facility] [place] [facility] [address] [id number] [place] [address] Oct, [facility] [place] [facility] [address] [id number], [place] [address] Oct, [facility] [place] [facility] [address] [id number] [place] [address] Oct, [facility] [place] [facility] [address] [id number], [place] [address] Oct, [facility] [place] [facility] [address] [id number], [place] [address] Sep, [facility] [place] [facility] [address] [id number], [place] [address] Sep, [facility] [place] [facility] [address] [id number] [place] [address] Sep, [facility] [place] [facility] [address] [id number], [place] [address] Aug, [facility] [place] [facility] [address] [id number], [place] [address] Aug, [facility] [place] [facility] [address] [id number] [place] [address] Aug, [facility] [address] [facility] [id number] [place] [address] Aug, [facility] [address] [facility] [id number], [place] [address] 13 Jul, 2010 IMMUNIZATIONS No Known Immunizations SOCIAL HISTORY Never Assessed REASON FOR VISIT EMR-[facility] PLAN OF CARE VITAL SIGNS MEDICATIONS Unknown Medications RESULTS No Results PROCEDURES No Known procedures [...]
--- OUTSIDE RECORDS SUMMARY | 2019-06-02 09:21 | XMS REPORT | Encounter Summary ---
Author Author [facility] Organization [facility] Address Unknown Phone Unavailable Care Team Providers Care Power Bender Operator Name Role Phone Silverio Walker MD Unavailable Sung Dunn MD PCP Reason for Visit * Reason Comments Appointment botox Encounter Details Care Team Description Date Type Department Silverio Walker MD [address] [facility] [address] [place] [address] [phone] Appointment (botox) 01/01/2019 Telephone [facility] [address] [place] [address] Social History Date Tobacco Use Types Packs/Day [...] Telephone Encounter - Brielle Raya RN - 01/01/2019 8:58 AM COMPUTER SUPPORT ANALYST Patient called stating she has to cancel Jan 06 botox injection and would like t o reschedule. She has an appointment in March for botox, but would like to be see n sooner. Advised patient we can see her FriFebruary 01 at 7:30am for botox; she does not wa nt a morning appointment. I will place her on a cancellation list and call her if we have an open afternoon appointment. UTER SUPPORT ANALYST documented in this encounter Plan of Treatment Not on filedocumented as of this encounter Visit Diagnoses Not on filedocumented in this encounter
[2019-06-02] MEDS ORDERED: ASPIRIN 81 MG CHEW (CHILDREN'S ASA) PO ONE (09:30)
[2019-06-02] MEDS ORDERED: NITROGLYCERIN 0.4 MG SL TABS BTL 25'S SL PRN (09:30)
--- NOTE | 2019-06-02 09:32 | ED Back Pain ---
General Chief Complaint: General Problems/Pain Stated Complaint: DIZZINESS;LOW BP Nursing Triage Note: Pt ambulates to ED with complaints of sharp pain in the left shoulder blade rated 9/10 that started yesterday. Pt reports dizziness that started this morning. Pt has a hx of A fib and denies any shortness of breath at this time. Pt reports she took tramadol for the pain and it helped slighty but pain is not fully relieved. Nursing Sepsis Screen: No Definite Risk Source of Information: Patient, Other Exam Limitations: No Limitations History of Present Illness Date Seen by Provider: Jun 02, 2019 Time Seen by Provider: 09:14 Initial Comments Patient presents to ER by private conveyance with chief complaint of some back pain between her shoulder blades with some pain in left anterior chest as well. It started up yesterday. She says the pains are constant 9 out of 10. She has taken tramadol which did help her pain but then it would come back. She's never had this pain before. No history of coronary disease. She has known history of lung disease cough, fever but she did have some nausea earlier today without vomiting. No abdominal pain diarrhea or constipation. No dysuria fevers or chills. She does have an extensive history of back pain for the surgery about 10 years ago on her lumbar spine and something with 3 of her disks. She was having increasing lumbar pain recently so she went to Dr. London and he didn't MRI demonstrating that she is having increasing degenerative findings above and below her previous surgery. She has plans to do some pain shots. She's not on steroids nor she been on them recently. She does not take NSAIDs because she is Eliquis for proximal atrial fibrillation. No history of heart failure but she does follow with Dr. Price and Dr. Dunn. She has not used anything Tylenol for her pain. It is worse with movement of his shoulder or her back. Not worse with deep inspiration. Allergies and Home Medications Allergies Coded Allergies: Sulfa (Sulfonamide Antibiotics) (Verified Allergy, Severe, HIVES, 11/14/17) Tetracyclines (Verified Allergy, Unknown, HIVES, 06/21/18) amoxicillin (Verified Allergy, Unknown, hives, 11/09/16) clavulanic acid (Verified Allergy, Unknown, hives, 11/09/16) penicillin G (Verified Allergy, Unknown, HIVES, 06/21/18) Home Medications Acetaminophen/Diphenhydramine 1 Each Tablet, 1 TAB PO HS, (Reported) Alprazolam 1 Mg Tablet, 1 MG PO BID, (Reported) Amiodarone HCl 200 Mg Tablet, 100 MG PO BID Prescribed by: RENÉ PRICE on 06/23/18 0711 Apixaban 5 Mg Tablet, 5 MG PO BID, (Reported) Biotin 5,000 Mcg Tab.rapdis, 5,000 MCG PO DAILY, (Reported) Buspirone HCl 10 Mg Tablet, 10 MG PO BID, (Reported) Diltiazem HCl 120 Mg Cap.er.24h, 120 MG PO DAILY Prescribed by: RENÉ PRICE on 06/23/18 07 Fenofibrate,Micronized 200 Mg Capsule, 200 MG PO DAILY, (Reported) Levocetirizine Dihydrochloride 5 Mg Tablet, 5 MG PO HS PRN for ALLERGIES, (Reported) Magnesium Oxide 400 Mg Tablet, 400 MG PO DAILY, (Reported) Maupin-3S/Dha/Epa/Fish Oil 1 Each Capsule.dr, 1 EACH PO BID, (Reported) Omeprazole 40 Mg Capsule.dr, 40 MG PO DAILY, (Reported) Potassium Gluconate 99 Mg Tablet, 99 MG PO DAILY, (Reported) Pravastatin Sodium 40 Mg Tablet, 40 MG PO DAILY, (Reported) Raloxifene HCl 60 Mg Tablet, 60 MG PO DAILY, (Reported) Sertraline HCl 50 Mg Tablet, 50 MG PO DAILY, (Reported) Vitamin E Acetate 400 Unit Capsule, 400 UNIT PO DAILY, (Reported) Patient Home Medication List Home Medication List Reviewed: Yes Review of Systems Constitutional: No chills, No diaphoresis EENTM: No ear discharge, No hearing loss Respiratory: No cough, No phlegm Cardiovascular: see HPI, chest pain, edema; No Hx of Intervention, No palpitations, No syncope Gastrointestinal: No abdominal pain, No constipation, No diarrhea, No nausea Genitourinary: No discharge, No dysuria Musculoskeletal: see HPI, back pain; No joint pain Past Xdxzrmm-Qprlbt-Jlgxac Hx Patient Social History Alcohol Use: Rarely Uses Number of Drinks Today: Alcohol Beverage of Choice: Wine Recreational Drug Use: No Smoking Status: Never a Smoker 2nd Hand Smoke Exposure: No Recent Foreign Travel: No Contact w/Someone Who Travel: No Recent Infectious Disease Expo: No Recent Hopitalizations: No Immunizations Up To Date Tetanus Booster (TDap): Unknown PED Vaccines UTD: No Date of Pneumonia Vaccine: Sep 22, 2015 Date of Influenza Vaccine: Sep 01, 2017 Seasonal Allergies Seasonal Allergies: No Past Medical History Surgeries: Yes (bilat knee, CARDIAC ABLATION) Appendectomy, Cardiac, Joint Replacement, Orthopedic Respiratory: No Cardiac: Yes Atrial Fibrillation, High Cholesterol, Hypertension, Irregular Heartbeat Neurological: No Reproductive Disorders: No Sexually Transmitted Disease: No Genitourinary: No Gastrointestinal: Yes Gastroesophageal Reflux Musculoskeletal: Yes (BACK SURGERY 2009-MILD PAIN-6 SCREWS AND 2 RODS) Arthritis, Chronic Back Pain Endocrine: No HEENT: No Cancer: No Psychosocial: Yes Anxiety, Depression Integumentary: No Blood Disorders: No Adverse Reaction/Blood Tranf: No Family Medical History Cardiovascular disease 19 FATHER (mi) Dementia 19 MOTHER Heart Disease Physical Exam Vital Signs Vital Signs - First Documented 06/02/19 06/02/19 09:16 09:54 Temp 98.9 Pulse 66 Resp 20 B/P (MAP) 128/84 (99) Pulse Ox 98 O2 Delivery Room Air O2 Flow Rate 2.00 Capillary Refill : Less Than 3 Seconds Height, Weight, BMI Height: 5'3.00" Weight: 152lbs. 8.0oz. [id number]; 28.6 BMI Method:Estimated General Appearance: No Apparent Distress, WD/WN HEENT: PERRL/EOMI, Pharynx Normal, Moist Mucous Membranes Neck: Full Range of Motion, Normal Inspection Cardiovascular: Regular Rate, Rhythm, No Edema, Normal Peripheral Pulses Respiratory: No Chest Non Tender (Left chest mildly tender to palpation. Left posterior chest tender to palpation along the proximal, medial spine of the scapula in the soft tissue.); Lungs Clear, Normal Breath Sounds, No Accessory Muscle Use, No Respiratory Distress Peripheral Pulses: 2+ Dorsalis Pedis (R), 2+ Left Dors-Pedis (L) Gastrointestinal: Normal Bowel Sounds, Non Tender, Soft Back: Other (tenderness along the medial side of the spine of the scapula and the subscapularis to direct palpation or extension/abduction of the left arm.) Extremity: Normal Capillary Refill, Normal Inspection, Pedal Edema (trace bila teral) Neurologic/Psychiatric: Alert, Oriented x3, No Motor/Sensory Deficits Skin: Normal Color, Warm/Dry Progress/Results/Core Measures Results/Orders Lab Results Laboratory Tests Test 06/02/19 09:25 06/02/19 11:30 Range/Units White Blood Count 5.0 4.3-11.0 10^3/uL Red Blood Count 3.84 L 4.35-5.85 10^6/uL Hemoglobin 10.7 L 11.5-16.0 G/DL Hematocrit 34 L 35-52 % Mean Corpuscular Volume 89 80-99 FL Mean Corpuscular Hemoglobin 28 25-34 PG Mean Corpuscular Hemoglobin Concent 31 L 32-36 G/DL Red Cell Distribution Width 15.1 H 10.0-14.5 % Platelet Count 347 130-400 10^3/uL Mean Platelet Volume 10.4 7.4-10.4 FL Neutrophils (%) (Auto) 57 42-75 % Lymphocytes (%) (Auto) 29 12-44 % Monocytes (%) (Auto) 11 0-12 % Eosinophils (%) (Auto) 3 0-10 % Basophils (%) (Auto) 1 0-10 % Neutrophils # (Auto) 2.8 1.8-7.8 X 10^3 Lymphocytes # (Auto) 1.4 1.0-4.0 X 10^3 Monocytes # (Auto) 0.6 0.0-1.0 X 10^3 Eosinophils # (Auto) 0.1 0.0-0.3 10^3/uL Basophils # (Auto) 0.0 0.0-0.1 10^3/uL Prothrombin Time 16.2 H 12.2-14.7 SEC INR Comment 1.3 0.8-1.4 Activated Partial Thromboplast Time 35 24-35 SEC D-Dimer 0.50 H 0.00-0.49 UG/ML Sodium Level 141 135-145 MMOL/L Potassium Level 3.7 3.6-5.0 MMOL/L Chloride Level 107 98-107 MMOL/L Carbon Dioxide Level 22 21-32 MMOL/L Anion Gap 12 5-14 MMOL/L Blood Urea Nitrogen 16 7-18 MG/DL Creatinine 1.05 0.60-1.30 MG/DL Estimat Glomerular Filtration Rate 52 BUN/Creatinine Ratio 15 Glucose Level 74 70-105 MG/DL Calcium Level 9.6 8.5-10.1 MG/DL Corrected Calcium 9.4 8.5-10.1 MG/DL Magnesium Level 2.2 1.8-2.4 MG/DL Total Bilirubin 0.3 0.1-1.0 MG/DL Aspartate Amino Transf (AST/SGOT) 36 H 5-34 U/L Alanine Aminotransferase (ALT/SGPT) 21 0-55 U/L Alkaline Phosphatase 49 40-136 U/L Myoglobin 39.0 10.0-92.0 NG/ML Troponin I < 0.028 < 0.028 <0.028 NG/ML B-Type Natriuretic Peptide 148.8 H <100.0 PG/ML Total Protein 7.7 6.4-8.2 GM/DL Albumin 4.3 3.2-4.5 GM/DL Lipase 67 8-78 U/L My Orders Orders - URBANO COATS Aspirin Chewable Tablet (Baby Aspirin Ch (06/02/19:17) Cbc With Automated Diff (06/02/19:25) Magnesium (06/02/19:) Chest 1 View, Ap/Pa Only (06/02/19:) Ekg Tracing (06/02/19:) Cardiac Profile 1 (06/02/19:) Comprehensive Metabolic Panel (06/02/19:) Myoglobin Serum (06/02/19:) Protime With Inr (06/02/19:) Partial Thromboplastin Time (06/02/19:) O2 (06/02/19:) Monitor-Rhythm Ecg Trace Only (06/02/19:) Lipid Panel (06/03/19 06:00) Ed Iv/Invasive Line Start (06/02/19:25) Lipase (06/02/19:25) BNP (06/02/19:25) Fibrin Degradation Products (06/02/19:) Nitroglycerin 0.4 Mg Btl 25's (Nitrostat (06/02/19:30) Aspirin Chewable Tablet (Baby Aspirin Ch (06/02/19 09:) Ns Iv 1000 Ml (Sodium Chloride 0.9%) (06/02/19 09:52) Ed Iv/Invasive Line Start (06/02/19 10:21) Ns Iv 1000 Ml (Sodium Chloride 0.9%) (06/02/19 10:21) Troponin I (06/02/19 11:30) Hydrocodone/Apap 5/325 Tablet (Lortab 5 (06/02/19 10:45) Medications Given in ED Current Medications Medications Dose Ordered Sig/Rachel Route Start Time Stop Time Status Last Admin Dose Admin Acetaminophen/ Hydrocodone Bitart 1 tab ONCE ONCE PO 06/02/19 10:45 06/02/19 10:46 DC 06/02/19 10:54 1 TAB Aspirin 324 mg ONCE ONCE PO 06/02/19 09:30 06/02/19 09:31 DC 06/02/19 09:23 324 MG Nitroglycerin 0.4 mg UD PRN SL 06/02/19 09:30 06/02/19 09:46 0.4 MG Vital Signs/I&O 06/02/19 06/02/19 09:16 09:54 Temp 98.9 Pulse 66 Resp 20 B/P (MAP) 128/84 (99) Pulse Ox 98 O2 Delivery Room Air Nasal Cannula O2 Flow Rate 2.00 Blood Pressure Mean: 99 Progress Progress Note #1: Time: 09:30 Progress Note The patient has concerns about coronary disease and certainly could be a referred atypical angina however the patient has no history of coronary disease and absent risk factors other than age. Plan to give her some nitroglycerin that doesn't help her pain you can give her some hydrocodone for pain. We'll recommend topical creams as it seems to be musculoskeletal. The pain has been going on since yesterday consistent only so if an initial troponin is negative we'll repeat a two-hour rule out. ED ACS 13 points. Low risk by the EDACS Score. If the patient also has: (1) EKG without new ischemic changes and (2) negative initial and 2-hour troponins, then this patient is safe for discharge to early outpatient follow-up investigation (or proceed to earlier inpatient testing). If EKG with ischemic changes or positive troponin, they are not low risk and require normal risk stratification. Patient with a history of nonobstructive coronary artery disease per cardiac catheterization [address] Price. Hypertension, hyperlipidemia, GERD, mild bilateral carotid stenosis with ultrasound May 2017. Hyperthyroidism. Progress Note #2: Time: 10:07 Progress Note Patient started having a low blood pressure map of 55 systolic in the 60s so repositioned the cuff repeated it and it stayed the same put her in Trendelenb urg gave her a liter of fluids and her blood pressure improved significantly and is presently 98/60 with a map of 70. Since that she is not having any pain at this moment. Nitroglycerin was given about 15 minutes ago. Patient says she does feel a little funny however. Progress Note #3: Time: 10:23 Progress Note The patient's blood pressure has recovered 121/72 and she has been allowed to sit back up and her pressure stayed up. She is feeling much better. Suspect nitroglycerin as the source of her hypotension. Initial ECG Impression Date: Jun 02, 2019 Initial ECG Impression Time: 09:25 Initial ECG Rate: 60 Initial ECG Rhythm: Normal Sinus Initial ECG Intervals: Normal Initial ECG Impression: Normal, Nonspecific Changes Initial ECG Comparisson: Unchanged Comment No clinically significant ST elevation or depression. Diagnostic Imaging Diagonstic Imaging: Xray Plain Films/CT/US/NM/MRI: chest (1v) Comments NAME: VICKEY [facility] REC#: [id number] PT STATUS: REG ER : 1945 PHYSICIAN: URBANO COATS MD ADMIT DATE: 06/02/19/ER Draft Date of Exam:06/02/19 CHEST 1 VIEW, AP/PA ONLY Clinical indication: Patient with shortness of breath and weakness. Exam: Portable chest x-ray upright view. Comparisons: Chest x-ray dated 07/12/2018. Findings: Lungs/pleura: Lungs are clear. There is no pneumothorax. There is no pleural effusion. Mediastinum: Unremarkable. Pulmonary vasculature: Unremarkable. Heart: Heart size is mildly enlarged, stable. Loop recorder is again seen overlying left chest. Bones/extrathoracic soft tissue: There is right curvature of the thoracolumbar spine. Partially visualized pedicle screws involving the lumbar spine. Impression: 1: Stable chest x-ray exam with no interval radiographic evidence of acute cardiopulmonary process. 2: Mild cardiomegaly with no significant pulmonary vascular congestion. Dictated on workstation # [id number] Dict: 06/02/19 1010 Trans: 06/02/19 1019 LEILANI [id number] Interpreted by: SALOMON VALVERDE MD Electronically signed by: No acute cardiopulmonary process noted. Reviewed: Reviewed by Me Departure Impression Primary Impression: Thoracic back pain Qualified Codes: M54.6 - Pain in thoracic spine Additional Impression: Left shoulder pain Qualified Codes: M25.512 - Pain in left shoulder Disposition: 01 HOME, SELF-CARE Condition: Stable Departure-Patient Inst. Decision time for Depature: 12:02 Referrals: VALENCIA DUNN DO (PCP/Family) Primary Care Physician Patient Instructions: Upper Back Pain (DC) Add. Discharge Instructions: Use topical use topical creams such as aspirin icy hot. Use Tylenol 650 mg every 8 hours as necessary for pain. Use the hydrocodone one tablet every 6 hours as necessary for breakthrough pain. Heating pads can be useful. Follow-up with primary care if not seeing improvement over the next week. All discharge instructions reviewed with patient and/or family. Voiced understanding. Scripts Hydrocodone Bit/Acetaminophen (Hydrocodone/Acetaminophen 5/325mg Tablet) 1 Tab Tab 1 EACH PO Q4-6HR PRN for PAIN-MODERATE MDD 10 for 3 Days, #12 TAB 0 Refills Prov: URBANO COTAS 06/02/19 URBANO COATS Jun 02, 2019 09:32
[2019-06-02 09:45] LABS: BASOPHILS % (AUTO) 1 % (0-10); EOSINOPHILS # (AUTO) 0.1 10^3/uL (0.0-0.3); EOSINOPHILS % (AUTO) 3 % (0-10); HEMATOCRIT 34 % (35-52); HEMOGLOBIN 10.7 G/DL (11.5-16.0); LYMPHOCYTES # (AUTO) 1.4 X 10^3 (1.0-4.0); LYMPHOCYTES % (AUTO) 29 % (12-44); MEAN CORPUSCULAR HEMOGLOBIN 28 PG (25-34); MEAN CORPUSCULAR HGB CONC 31 G/DL (32-36); MEAN CORPUSCULAR VOLUME 89 FL (80-99); MEAN PLATELET VOLUME 10.4 FL (7.4-10.4); MONOCYTES # (AUTO) 0.6 X 10^3 (0.0-1.0); MONOCYTES % (AUTO) 11 % (0-12); NEUTROPHILS # (AUTO) 2.8 X 10^3 (1.8-7.8); NEUTROPHILS % (AUTO) 57 % (42-75); PLATELET COUNT 347 10^3/uL (130-400); RED CELL DISTRIBUTION WIDTH 15.1 % (10.0-14.5)
[2019-06-02] MEDS ORDERED: NS IV 1000 ML 1,000 ML ONE (09:52)
[2019-06-02 09:58] LABS: INR 1.3 (0.8-1.4); PROTHROMBIN TIME PATIENT 16.2 SEC (12.2-14.7)
[2019-06-02 10:06] LABS: ALANINE AMINOTRANSFERASE 21 U/L (0-55); ALBUMIN 4.3 GM/DL (3.2-4.5); ALKALINE PHOSPHATASE 49 U/L (40-136); BILIRUBIN,TOTAL 0.3 MG/DL (0.1-1.0); BUN/CREATININE RATIO 15; CALCIUM 9.6 MG/DL (8.5-10.1); CARBON DIOXIDE 22 MMOL/L (21-32); CHLORIDE 107 MMOL/L (98-107); CREATININE SERUM 1.05 MG/DL (0.60-1.30); GFR ESTIMATED 52; GLUCOSE 74 MG/DL (70-105); LIPASE 67 U/L (8-78); MAGNESIUM 2.2 MG/DL (1.8-2.4); POTASSIUM 3.7 MMOL/L (3.6-5.0); SODIUM 141 MMOL/L (135-145); TOTAL PROTEIN 7.7 GM/DL (6.4-8.2)
--- NOTE | 2019-06-02 10:20 | Diagnostic Imaging Report ---
Clinical indication: Patient with shortness of breath and weakness. Exam: Portable chest x-ray upright view. Comparisons: Chest x-ray dated 07/12/2018. Findings: Lungs/pleura: Lungs are clear. There is no pneumothorax. There is no pleural effusion. Mediastinum: Unremarkable. Pulmonary vasculature: Unremarkable. Heart: Heart size is mildly enlarged, stable. Loop recorder is again seen overlying left chest. Bones/extrathoracic soft tissue: There is right curvature of the thoracolumbar spine. Partially visualized pedicle screws involving the lumbar spine. Impression: 1: Stable chest x-ray exam with no interval radiographic evidence of acute cardiopulmonary process. 2: Mild cardiomegaly with no significant pulmonary vascular congestion. Dictated by: Dictated on workstation # [id number]
[2019-06-02] MEDS ORDERED: NS IV 1000 ML 1,000 ML IV SCH (10:21)
[2019-06-02] MEDS ORDERED: HYDROcodone/APAP 5 MG/325 MG (LORTAB) TAB PO ONE (10:45)
[2019-06-02] MEDS ORDERED: ACHD5005 PO (12:03)
[2019-06-02 12:08] VITALS: BP 128/84
== END 2019-06-02 12:08 | disposition home or self-care (01) ==
LOC: EDUNIT# 09:08 → ER 09:09
DX: M25.512 Pain in left shoulder (principal); M54.6 Pain in thoracic spine; I48.91 Unspecified atrial fibrillation; E78.00 Pure hypercholesterolemia, unspecified; I10 Essential (primary) hypertension; K21.9 Gastro-esophageal reflux disease without esophagitis; F41.9 Anxiety disorder, unspecified; F32.9 Major depressive disorder, single episode, unspecified; Z79.01 Long term (current) use of anticoagulants; Z88.2 Allergy status to sulfonamides; Z88.1 Allergy status to other antibiotic agents; Z90.49 Acquired absence of other specified parts of digestive tract; Z82.49 Family history of ischemic heart disease and other diseases of the circulatory system
CPT/HCPCS: 36415; 71045; 80053; 83690; 83735; 83874; 83880; 84484; 85025; 85379; 85610; 85730; 93005; 93041; 96360

== ENCOUNTER 2019-06-05 13:20 | Inpatient (IN) | payer MEDICARE, OTHER ==
[2019-06-05] VITALS (8 sets, daily range): BP systolic 103–137; BP diastolic 70–108
[~2019-06-05] VITALS: Ht 162.6 cm; Wt 72.6 kg
[2019-06-05] MEDS ORDERED: NS IV 1000 ML 1,000 ML IV ONE ×2 (13:49→15:36)
--- NOTE | 2019-06-05 14:02 | ED General ---
General Chief Complaint: Dizziness/Syncope Stated Complaint: DIZZY Nursing Triage Note: PT TO ED W/ C/O DIZZINESS UPON STANDING X2 DAYS, WORSE WHEN AMBULATING. REPORTS WAS ALSO SEEN X3 DAYS AGO FOR SHOULDER PAIN ET WAS PRESCRIBED HYDROCODONE AT THAT TIME. NO OTHER C/O VOICED Nursing Sepsis Screen: No Definite Risk Source of Information: Patient Exam Limitations: No Limitations History of Present Illness Date Seen by Provider: Jun 05, 2019 Time Seen by Provider: 13:43 Initial Comments Here with complaint of dizziness especially with standing over the last 2 days. She was seen here 2 days ago for back pain that was attributed to her shoulder injury. She is on hydrocodone for couple of days and that has gone away. She did get constipated with that and took mag citrate and that helped. Notes that her blood pressures a little low today and overall she is still feeling lightheaded. She is not having problems with walking and she has no focal deficits. She states that she feels globally weak. Denies dysuria or diarrhea. She does have history of atrial fibrillation and has been taking her medicines as prescribed. Denies nausea or vomiting. Denies chest pain. Timing/Duration: 1-2 Days Severity: Moderate Associated Systoms: No Chest Pain, No Cough, No Fever/Chills; Loss of Appetite; No Nausea/Vomiting, No Shortness of Air; Weakness Allergies and Home Medications Allergies Coded Allergies: Sulfa (Sulfonamide Antibiotics) (Verified Allergy, Severe, HIVES, 11/14/17) Tetracyclines (Verified Allergy, Unknown, HIVES, 06/21/18) amoxicillin (Verified Allergy, Unknown, hives, 11/09/16) clavulanic acid (Verified Allergy, Unknown, hives, 11/09/16) penicillin G (Verified Allergy, Unknown, HIVES, 06/21/18) Home Medications Acetaminophen/Diphenhydramine 1 Each Tablet, 1 TAB PO HS, (Reported) Alprazolam 1 Mg Tablet, 1 MG PO BID, (Reported) Amiodarone HCl 200 Mg Tablet, 100 MG PO BID Prescribed by: RENÉ GR on 06/23/18 0711 Apixaban 5 Mg Tablet, 5 MG PO BID, (Reported) Biotin 5,000 Mcg Tab.rapdis, 5,000 MCG PO DAILY, (Reported) Buspirone HCl 10 Mg Tablet, 10 MG PO BID, (Reported) Diltiazem HCl 120 Mg Cap.er.24h, 120 MG PO DAILY Prescribed by: RENÉ GR on 06/23/18 0711 Fenofibrate,Micronized 200 Mg Capsule, 200 MG PO DAILY, (Reported) Hydrocodone Bit/Acetaminophen 1 Tab Tab, 1 EACH PO Q4-6HR PRN for PAIN-MODERATE Prescribed by: URBANO COATS on 06/02/19 1203 Levocetirizine Dihydrochloride 5 Mg Tablet, 5 MG PO HS PRN for ALLERGIES, (Reported) Magnesium Oxide 400 Mg Tablet, 400 MG PO DAILY, (Reported) [place]-3S/Dha/Epa/Fish Oil 1 Each Capsule.dr, 1 EACH PO BID, (Reported) Omeprazole 40 Mg Capsule.dr, 40 MG PO DAILY, (Reported) Potassium Gluconate 99 Mg Tablet, 99 MG PO DAILY, (Reported) Pravastatin Sodium 40 Mg Tablet, 40 MG PO DAILY, (Reported) Raloxifene HCl 60 Mg Tablet, 60 MG PO DAILY, (Reported) Sertraline HCl 50 Mg Tablet, 50 MG PO DAILY, (Reported) Vitamin E Acetate 400 Unit Capsule, 400 UNIT PO DAILY, (Reported) Patient Home Medication List Home Medication List Reviewed: Yes Review of Systems Review of Systems Constitutional: see HPI; No chills; dizziness; No fever; weakness EENTM: no symptoms reported Respiratory: No cough, No short of breath Cardiovascular: No chest pain; palpitations Gastrointestinal: No abdominal pain, No nausea, No vomiting Genitourinary: decreased output; No pain : No Musculoskeletal: no symptoms reported Skin: no symptoms reported All Other Systems Reviewed Negative Unless Noted: Yes Past Tpznhiv-Khzywy-Iyhyym Hx Past Med/Social Hx: Reviewed Nursing Past Med/Soc Hx Patient Social History Alcohol Use: Occasionally Uses Alcohol Beverage of Choice: Wine Recreational Drug Use: No Smoking Status: Never a Smoker 2nd Hand Smoke Exposure: No Recent Foreign Travel: No Contact w/Someone Who Travel: No Recent Infectious Disease Expo: No Recent Hopitalizations: No Physical Abuse: No Sexual Abuse: No Mistreated: No Fear: No Immunizations Up To Date Tetanus Booster (TDap): Unknown PED Vaccines UTD: No Date of Pneumonia Vaccine: Sep 22, 2015 Date of Influenza Vaccine: Sep 01, 2017 Seasonal Allergies Seasonal Allergies: No Past Medical History Surgeries: Yes (bilat knee, CARDIAC ABLATION) Appendectomy, Cardiac, Joint Replacement, Orthopedic Respiratory: No Cardiac: Yes Atrial Fibrillation, High Cholesterol, Hypertension, Irregular Heartbeat Neurological: No Reproductive Disorders: No Sexually Transmitted Disease: No Genitourinary: No Gastrointestinal: Yes Gastroesophageal Reflux Musculoskeletal: Yes (BACK SURGERY 2009-MILD PAIN-6 SCREWS AND 2 RODS) Arthritis, Chronic Back Pain Endocrine: No HEENT: No Cancer: No Psychosocial: Yes Anxiety, Depression Integumentary: No Blood Disorders: No Adverse Reaction/Blood Tranf: No Family Medical History Reviewed Nursing Family Hx Cardiovascular disease 19 FATHER (mi) Dementia 19 MOTHER Heart Disease Physical Exam Vital Signs Vital Signs - First Documented 06/05/19 13:25 Temp 95.7 Pulse 74 Resp 18 B/P (MAP) 95/78 (84) Pulse Ox 96 O2 Delivery Room Air Capillary Refill : Less Than 3 Seconds Height, Weight, BMI Height: 5'4.00" Weight: 148lbs. 8.0oz. 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) Skin: Normal Color, Warm/Dry Progress/Results/Core Measures Suspected Sepsis Recent Fever Within 48 Hours: No Infection Criteria Present: None New/Unexplained Altered Menta: No Sepsis Screen: No Definite Risk SIRS Temperature:95.7 Pulse: 74 Respiratory Rate: 18 Laboratory Tests 06/05/19 13:54: White Blood Count 6.9 06/06/19 03:04: White Blood Count 4.7 06/07/19 02:55: White Blood Count 5.1 Blood Pressure 95 /78 Mean: 84 Laboratory Tests 06/05/19 13:54: Creatinine 1.04, Platelet Count 399, Total Bilirubin 0.3 06/06/19 03:04: Creatinine 0.76, Platelet Count 322, Total Bilirubin 0.3 06/07/19 02:55: Creatinine 0.79, Platelet Count 331 Results/Orders Lab Results Laboratory Tests Test 06/05/19 13:40 06/05/19 13:54 06/05/19 23:45 06/06/19 03:04 Range/Units Urine Color YELLOW Urine Clarity CLEAR Urine pH 7 5-9 Urine Specific [place] 1.010 L 1.016-1.022 Urine Protein 3+ H NEGATIVE Urine Glucose (UA) NEGATIVE NEGATIVE Urine Ketones 1+ H NEGATIVE Urine Nitrite NEGATIVE NEGATIVE Urine Bilirubin NEGATIVE NEGATIVE Urine Urobilinogen 1 NORMAL MG/DL Urine Leukocyte Esterase 3+ H NEGATIVE Urine RBC (Auto) 3+ H NEGATIVE Urine RBC NONE /HPF Urine WBC RARE /HPF Urine Squamous Epithelial Cells 2-5 /HPF Urine Crystals NONE /LPF Urine Bacteria FEW H /HPF Urine Casts NONE /LPF Urine Mucus NEGATIVE /LPF Urine Culture Indicated NO White Blood Count 6.9 4.7 4.3-11.0 10^3/uL Red Blood Count 4.18 L 3.48 L 4.35-5.85 10^6/uL Hemoglobin 11.6 9.7 L 11.5-16.0 G/DL Hematocrit 37 30 L 35-52 % Mean Corpuscular Volume 88 87 80-99 FL Mean Corpuscular Hemoglobin 28 28 25-34 PG Mean Corpuscular Hemoglobin Concent 32 32 32-36 G/DL Red Cell Distribution Width 15.3 H 15.1 H 10.0-14.5 % Platelet Count 399 322 130-400 10^3/uL Mean Platelet Volume 10.6 H 10.4 7.4-10.4 FL Neutrophils (%) (Auto) 65 54 42-75 % Lymphocytes (%) (Auto) 26 36 12-44 % Monocytes (%) (Auto) 8 8 0-12 % Eosinophils (%) (Auto) 1 3 0-10 % Basophils (%) (Auto) 0 0 0-10 % Neutrophils # (Auto) 4.5 2.5 1.8-7.8 X 10^3 Lymphocytes # (Auto) 1.8 1.7 1.0-4.0 X 10^3 Monocytes # (Auto) 0.5 0.4 0.0-1.0 X 10^3 Eosinophils # (Auto) 0.1 0.1 0.0-0.3 10^3/uL Basophils # (Auto) 0.0 0.0 0.0-0.1 10^3/uL Sodium Level 140 142 135-145 MMOL/L Potassium Level 3.4 L 3.0 L 3.6-5.0 MMOL/L Chloride Level 105 111 H 98-107 MMOL/L Carbon Dioxide Level 21 21 21-32 MMOL/L Anion Gap 14 10 5-14 MMOL/L Blood Urea Nitrogen 17 13 7-18 MG/DL Creatinine 1.04 0.76 0.60-1.30 MG/DL Estimat Glomerular Filtration Rate 52 > 60 BUN/Creatinine Ratio 16 17 Glucose Level 98 87 70-105 MG/DL Calcium Level 10.0 8.6 8.5-10.1 MG/DL Corrected Calcium 9.8 9.0 8.5-10.1 MG/DL Magnesium Level 2.2 1.7 L 1.8-2.4 MG/DL Total Bilirubin 0.3 0.3 0.1-1.0 MG/DL Aspartate Amino Transf (AST/SGOT) 39 H 24 5-34 U/L Alanine Aminotransferase (ALT/SGPT) 24 17 0-55 U/L Alkaline Phosphatase 50 34 L 40-136 U/L Troponin I 0.176 H 0.106 H <0.028 NG/ML C-Reactive Protein High Sensitivity 1.44 H 0.00-0.50 MG/DL Total Protein 7.9 6.3 L 6.4-8.2 GM/DL Albumin 4.3 3.5 3.2-4.5 GM/DL Phosphorus Level 3.2 2.3-4.7 MG/DL Test 06/06/19 05:40 06/07/19 02:55 Range/Units Troponin I 0.083 H <0.028 NG/ML Thyroid Stimulating Hormone (TSH) 4.67 0.35-4.94 UIU/ML White Blood Count 5.1 4.3-11.0 10^3/uL Red Blood Count 3.61 L 4.35-5.85 10^6/uL Hemoglobin 10.1 L 11.5-16.0 G/DL Hematocrit 32 L 35-52 % Mean Corpuscular Volume 87 80-99 FL Mean Corpuscular Hemoglobin 28 25-34 PG Mean Corpuscular Hemoglobin Concent 32 32-36 G/DL Red Cell Distribution Width 14.9 H 10.0-14.5 % Platelet Count 331 130-400 10^3/uL Mean Platelet Volume 10.4 7.4-10.4 FL Neutrophils (%) (Auto) 60 42-75 % Lymphocytes (%) (Auto) 28 12-44 % Monocytes (%) (Auto) 10 0-12 % Eosinophils (%) (Auto) 3 0-10 % Basophils (%) (Auto) 0 0-10 % Neutrophils # (Auto) 3.1 1.8-7.8 X 10^3 Lymphocytes # (Auto) 1.4 1.0-4.0 X 10^3 Monocytes # (Auto) 0.5 0.0-1.0 X 10^3 Eosinophils # (Auto) 0.1 0.0-0.3 10^3/uL Basophils # (Auto) 0.0 0.0-0.1 10^3/uL Sodium Level 142 135-145 MMOL/L Potassium Level 3.6 3.6-5.0 MMOL/L Chloride Level 113 H 98-107 MMOL/L Carbon Dioxide Level 18 L 21-32 MMOL/L Anion Gap 11 5-14 MMOL/L Blood Urea Nitrogen 9 7-18 MG/DL Creatinine 0.79 0.60-1.30 MG/DL Estimat Glomerular Filtration Rate > 60 BUN/Creatinine Ratio 11 Glucose Level 87 70-105 MG/DL Calcium Level 9.1 8.5-10.1 MG/DL Phosphorus Level 2.9 2.3-4.7 MG/DL Magnesium Level 1.9 1.8-2.4 MG/DL My Orders Orders - ALTON RICHARDS MD Ed Iv/Invasive Line Start (06/05/19 13:49) Ns Iv 1000 Ml (Sodium Chloride 0.9%) (06/05/19 13:49) Cbc With Automated Diff (06/05/19 13:49) Comprehensive Metabolic Panel (06/05/19 13:49) Hs C Reactive Protein (06/05/19 13:49) Magnesium (06/05/19 13:49) Troponin I (06/05/19 13:49) Ua Culture If Indicated (06/05/19 13:49) Ekg Tracing (06/05/19 13:49) Monitor-Rhythm Ecg Trace Only (06/05/19 13:49) Ed Iv/Invasive Line Start (06/05/19 14:20) Lactated Ringers (Lr 1000 Ml Iv Solution (7/20/19 14:20) Chest 1 View, Ap/Pa Only (06/05/19 14:20) Diltiazem Injection (Cardizem Injection) (06/05/19 15:00) Ns (Ivpb) (Sodium C... W/Diltiazem Iv Fo (06/05/19 15:15) Diltiazem Injection (Cardizem Injection) (06/05/19 15:15) Potassium Cl 10meq/50ml Ivpb (Kcl 10 Meq (06/05/19 15:45) Ns Iv 1000 Ml (Sodium Chloride 0.9%) (06/05/19 15:36) Medications Given in ED Vital Signs/I&O 06/06/19 06/06/19 06/06/19 06/07/19 21:39 22:00 23:00 00:00 Pulse 82 82 92 Resp 15 13 10 B/P (MAP) 132/92 (105) 118/74 (89) 152/99 (116) Pulse Ox 97 96 98 100 O2 Delivery Room Air Room Air Room Air Room Air 06/07/19 06/07/19 06/07/19 06/07/19 00:09 01:00 01:00 02:00 Pulse 82 91 86 96 Resp 18 B/P (MAP) 135/96 (109) 134/99 (111) 139/101 (114) Pulse Ox 92 94 94 O2 Delivery Room Air Room Air Room Air 06/07/19 06/07/19 06/07/19 06/07/19 03:00 04:00 04:00 05:00 Pulse 84 80 81 Resp B/P (MAP) 133/98 (110) 124/92 (103) 133/95 (108) Pulse Ox 95 92 100 93 O2 Delivery Room Air Room Air Room Air Room Air 06/07/19 06/07/19 06/07/19 06/07/19 06:00 07:00 07:00 08:00 Pulse 82 128 105 87 Resp 27 B/P (MAP) 122/96 (105) 159/95 (116) 140/101 (114) Pulse Ox 95 90 92 O2 Delivery Room Air Room Air Room Air Capillary Refill : Less Than 3 Seconds Blood Pressure Mean: 84 Progress Note : Progress Note Seen and evaluated. IV, labs, UA, normal saline 1 L bolus. Heart rate noted to be greater than 120. EKG ordered. Patient does have history of atrial fibrillation. Repeat bolus of normal saline 1 L bolus. Patient is still in A. fib RVR but we need to get blood pressure pill higher to initiate Cardizem. 1525: We have initiated Cardizem drip at 10 mg an hour after 10 mg bolus IV. Potassium is a little low. There is slight elevation of troponin which I believe is demand ischemia related to the tachycardia. She is overall feeling better now. I did discuss the case with Dr. Naylor she accepts patient for admission, inpatient status to the ICU. I did discuss the case with Dr. Harris at 1533 and he accepts patient in consult. Patient and family agree with plan. ECG Initial ECG Impression Date: Jun 05, 2019 Initial ECG Impression Time: 13:54 Initial ECG Rate: 151 Initial ECG Rhythm: A Fib/Flutter Initial ECG Comparisson: Changed Comment Atrial fibrillation with rapid ventricular response. Normal axis. No evidence of ST elevation PR. Change from previous which was sinus rhythm of 06/02/19. Interpreted by me. Diagnostic Imaging Diagonstic Imaging: Xray Plain Films/CT/US/NM/MRI: chest Comments Increasing cardiac silhouette from 2 days ago. Mild vascular congestion noted. Departure Communication (Admissions) Time/Spoke to Admitting Phy: 15:25 Time/Spoke to Consulting Phy: 15:33 Impression Primary Impression: Atrial fibrillation with rapid ventricular response Disposition: ADMITTED INPATIENT Condition: Stable Admissions Decision to Admit Reason: Admit from ER (General) Decision to Admit/Date: Jun 05, 2019 Time/Decision to Admit Time: 15:25 Departure-Patient Inst. Referrals: VALENCIA WILSON DO (PCP/Family) Primary Care Physician ALTON RICHARDS MD Jun 05, 2019 14:02
[2019-06-05 14:05] LABS: BASOPHILS % (AUTO) 0 % (0-10); EOSINOPHILS # (AUTO) 0.1 10^3/uL (0.0-0.3); EOSINOPHILS % (AUTO) 1 % (0-10); HEMATOCRIT 37 % (35-52); HEMOGLOBIN 11.6 G/DL (11.5-16.0); LYMPHOCYTES # (AUTO) 1.8 X 10^3 (1.0-4.0); LYMPHOCYTES % (AUTO) 26 % (12-44); MEAN CORPUSCULAR HEMOGLOBIN 28 PG (25-34); MEAN CORPUSCULAR HGB CONC 32 G/DL (32-36); MEAN CORPUSCULAR VOLUME 88 FL (80-99); MEAN PLATELET VOLUME 10.6 FL (7.4-10.4); MONOCYTES # (AUTO) 0.5 X 10^3 (0.0-1.0); MONOCYTES % (AUTO) 8 % (0-12); NEUTROPHILS # (AUTO) 4.5 X 10^3 (1.8-7.8); NEUTROPHILS % (AUTO) 65 % (42-75); PLATELET COUNT 399 10^3/uL (130-400); RED CELL DISTRIBUTION WIDTH 15.3 % (10.0-14.5); WHITE BLOOD COUNT 6.9 10^3/uL (4.3-11.0)
[2019-06-05] MEDS ORDERED: LACTATED RINGERS 1,000 ML IV ONE (14:20)
[2019-06-05 14:24] LABS: CREATININE SERUM 1.04 MG/DL (0.60-1.30); POTASSIUM 3.4 MMOL/L (3.6-5.0)
[2019-06-05 14:24] LABS: BILIRUBIN,URINE NEGATIVE (NEGATIVE); CLARITY,URINE CLEAR; COLOR,URINE YELLOW; GLUCOSE, URINE (UA) NEGATIVE (NEGATIVE); KETONES,URINE 1+ (NEGATIVE); LEUKOCYTE ESTERASE ,URINE 3+ (NEGATIVE); NITRITE,URINE NEGATIVE (NEGATIVE); PH,URINE 7 (5-9); PROTEIN,URINE 3+ (NEGATIVE); UROBILINOGEN,URINE 1 MG/DL (NORMAL)
[2019-06-05 14:25] LABS: ALBUMIN 4.3 GM/DL (3.2-4.5); BILIRUBIN,TOTAL 0.3 MG/DL (0.1-1.0); MAGNESIUM 2.2 MG/DL (1.8-2.4); TOTAL PROTEIN 7.9 GM/DL (6.4-8.2)
[2019-06-05 14:37] LABS: BACTERIA,URINE FEW /HPF; WBC,URINE RARE /HPF
[2019-06-05] MEDS ORDERED: DILTIAZEM 25 MG/5 ML INJ (CARDIZEM) VIAL ONE (15:00)
[2019-06-05] MEDS ORDERED: DILTIAZEM IV FOR DRIP 125 MG in NS (IVPB) 100 ML IV SCH (15:15)
[2019-06-05] MEDS ORDERED: DILTIAZEM 25 MG/5 ML INJ (CARDIZEM) VIAL IVP ONE (15:15)
--- NOTE | 2019-06-05 15:40 | Diagnostic Imaging Report ---
Portable erect AP chest at 2:35 p.m. INDICATION: Tachycardia. FINDINGS: The mild cardiomegaly noted on the prior exam of 06/02/2019 is again evident and no different. The loop recorder device overlying the cardiac silhouette seen previously is also again visualized. The lungs remain clear. There is still no sign of failure, pneumonia, or pleural effusion. The mediastinum is not widened. The osseous structures are intact. IMPRESSION: Stable chest. There has been no adverse change since the prior exam. Dictated by: Dictated on workstation # [id number]
[2019-06-05] MEDS ORDERED: POTASSIUM CL 10MEQ/50ML IVPB 50 ML IV ONE (15:45)
[2019-06-05] MEDS ORDERED: CATHETER FLUSH 10 ML SYR IV PRN (16:30)
[2019-06-05] MEDS: DILTIAZEM 125 MG/NS 100 ML IV SCH ×2 (16:52)
[2019-06-05] MEDS: NS IV 1000 ML 1,000 ML IV SCH (16:53)
[2019-06-05] MEDS ORDERED: DILTIAZEM 120 MG (CARDIZEM CD) CAP PO ONE (20:09)
[2019-06-05] MEDS ORDERED: DILTIAZEM 120 MG (CARDIZEM CD) CAP PO SCH (20:15)
[2019-06-05] MEDS ORDERED: AMIODARONE 200 MG (CORDARONE) TAB PO SCH (21:00)
[2019-06-05] MEDS ORDERED: busPIRone 10 MG (BUSPAR) TAB ONE (21:53)
[2019-06-05] MEDS ORDERED: AMIODARONE 200 MG (CORDARONE) TAB ONE (21:53)
[2019-06-05] MEDS: APIXABAN 5 MG (ELIQUIS) TABLET PO SCH (22:01)
[2019-06-05] MEDS: busPIRone 10 MG (BUSPAR) TAB PO SCH (22:01)
[2019-06-06] VITALS (23 sets, daily range): BP systolic 107–152; BP diastolic 65–116
[2019-06-06] MEDS: NS IV 1000 ML 1,000 ML IV SCH ×3 (01:15→22:17)
[2019-06-06 03:26] LABS: BASOPHILS % (AUTO) 0 % (0-10); EOSINOPHILS # (AUTO) 0.1 10^3/uL (0.0-0.3); EOSINOPHILS % (AUTO) 3 % (0-10); HEMATOCRIT 30 % (35-52); HEMOGLOBIN 9.7 G/DL (11.5-16.0); LYMPHOCYTES # (AUTO) 1.7 X 10^3 (1.0-4.0); LYMPHOCYTES % (AUTO) 36 % (12-44); MEAN CORPUSCULAR HEMOGLOBIN 28 PG (25-34); MEAN CORPUSCULAR HGB CONC 32 G/DL (32-36); MEAN CORPUSCULAR VOLUME 87 FL (80-99); MEAN PLATELET VOLUME 10.4 FL (7.4-10.4); MONOCYTES # (AUTO) 0.4 X 10^3 (0.0-1.0); MONOCYTES % (AUTO) 8 % (0-12); NEUTROPHILS # (AUTO) 2.5 X 10^3 (1.8-7.8); NEUTROPHILS % (AUTO) 54 % (42-75); PLATELET COUNT 322 10^3/uL (130-400); RED CELL DISTRIBUTION WIDTH 15.1 % (10.0-14.5); WHITE BLOOD COUNT 4.7 10^3/uL (4.3-11.0)
[2019-06-06 03:44] LABS: ALANINE AMINOTRANSFERASE 17 U/L (0-55); ALBUMIN 3.5 GM/DL (3.2-4.5); ALKALINE PHOSPHATASE 34 U/L (40-136); BILIRUBIN,TOTAL 0.3 MG/DL (0.1-1.0); BUN/CREATININE RATIO 17; CALCIUM 8.6 MG/DL (8.5-10.1); CARBON DIOXIDE 21 MMOL/L (21-32); CHLORIDE 111 MMOL/L (98-107); CREATININE SERUM 0.76 MG/DL (0.60-1.30); GFR ESTIMATED > 60; GLUCOSE 87 MG/DL (70-105); MAGNESIUM 1.7 MG/DL (1.8-2.4); PHOSPHORUS 3.2 MG/DL (2.3-4.7); SODIUM 142 MMOL/L (135-145); TOTAL PROTEIN 6.3 GM/DL (6.4-8.2)
[2019-06-06] MEDS: MAGNESIUM 1 GM/100 ML IVPB 100 ML IV SCH ×4 (04:00→05:54)
[2019-06-06] MEDS: KCL 20 MEQ TAB (K-DUR) PO SCH ×4 (04:05→16:55)
[2019-06-06] MEDS: POTASSIUM CL 10MEQ/50ML IVPB 50 ML IV SCH (04:05)
--- NOTE | 2019-06-06 06:44 | Pulmonary Consultation ---
History of Present Illness History of Present Illness Date of Consultation 06/06/19 06:39 Date of Admission Allergies and Home Medications Allergies Coded Allergies: Sulfa (Sulfonamide Antibiotics) (Verified Allergy, Severe, HIVES, 11/14/17) Tetracyclines (Verified Allergy, Unknown, HIVES, 06/21/18) amoxicillin (Verified Allergy, Unknown, hives, 11/09/16) clavulanic acid (Verified Allergy, Unknown, hives, 11/09/16) penicillin G (Verified Allergy, Unknown, HIVES, 06/21/18) Home Medications Acetaminophen/Diphenhydramine 1 Each Tablet, 1 TAB PO HS, (Reported) Alprazolam 1 Mg Tablet, 1 MG PO BID, (Reported) Amiodarone HCl 200 Mg Tablet, 100 MG PO BID Prescribed by: RENÉ GR on 06/23/18 0711 Apixaban 5 Mg Tablet, 5 MG PO BID, (Reported) Biotin 5,000 Mcg Tab.rapdis, 5,000 MCG PO DAILY, (Reported) Buspirone HCl 10 Mg Tablet, 10 MG PO BID, (Reported) Diltiazem HCl 120 Mg Cap.er.24h, 120 MG PO DAILY Prescribed by: RENÉ GR on 06/23/18 0711 Fenofibrate,Micronized 200 Mg Capsule, 200 MG PO DAILY, (Reported) Hydrocodone Bit/Acetaminophen 1 Tab Tab, 1 EACH PO Q4-6HR PRN for PAIN-MODERATE Prescribed by: URBANO COATS on 06/02/19 1203 Levocetirizine Dihydrochloride 5 Mg Tablet, 5 MG PO HS PRN for ALLERGIES, (Reported) Magnesium Oxide 400 Mg Tablet, 400 MG PO DAILY, (Reported) [place]-3S/Dha/Epa/Fish Oil 1 Each Capsule.dr, 1 EACH PO BID, (Reported) Omeprazole 40 Mg Capsule.dr, 40 MG PO DAILY, (Reported) Potassium Gluconate 99 Mg Tablet, 99 MG PO DAILY, (Reported) Pravastatin Sodium 40 Mg Tablet, 40 MG PO DAILY, (Reported) Raloxifene HCl 60 Mg Tablet, 60 MG PO DAILY, (Reported) Sertraline HCl 50 Mg Tablet, 50 MG PO DAILY, (Reported) Vitamin E Acetate 400 Unit Capsule, 400 UNIT PO DAILY, (Reported) Past Sbghgbr-Oizfmo-Gflxdp Hx Past Med/Social Hx: Reviewed Nursing Past Med/Soc Hx Patient Social History Alcohol Use: Occasionally Uses Alcohol Beverage of Choice: Wine Recreational Drug Use: No Smoking Status: Never a Smoker 2nd Hand Smoke Exposure: No Recent Foreign Travel: No Contact w/Someone Who Travel: No Recent Infectious Disease Expo: No Recent Hopitalizations: No Physical Abuse: No Sexual Abuse: No Mistreated: No Fear: No Immunizations Up To Date Tetanus Booster (TDap): Unknown PED Vaccines UTD: No Date of Pneumonia Vaccine: Sep 22, 2015 Date of Influenza Vaccine: Sep 01, 2017 Seasonal Allergies Seasonal Allergies: No Past Medical History Surgeries: Yes (bilat knee, CARDIAC ABLATION) Appendectomy, Cardiac, Joint Replacement, Orthopedic Respiratory: No Cardiac: Yes Atrial Fibrillation, High Cholesterol, Hypertension, Irregular Heartbeat Neurological: No : No Reproductive Disorders: No Sexually Transmitted Disease: No Genitourinary: No Gastrointestinal: Yes Gastroesophageal Reflux Musculoskeletal: Yes (BACK SURGERY 2008-MILD PAIN-6 SCREWS AND 2 RODS) Arthritis, Chronic Back Pain Endocrine: No HEENT: No Cancer: No Psychosocial: Yes Anxiety, Depression Integumentary: No Blood Disorders: No Adverse Reaction/Blood Tranf: No Family Medical History Reviewed Nursing Family Hx Cardiovascular disease 19 FATHER (mi) Dementia 19 MOTHER Heart Disease Sepsis Event Evaluation Height, Weight, BMI Height: 5'4.00" Weight: 158lbs. 0.0oz. 71.968936yk; 27.1 BMI Method:Stated Exam Exam Vital Signs Date Time Temp Pulse Resp B/P (MAP) Pulse Ox O2 Delivery O2 Flow Rate FiO2 06/06/19 06:00 93 16 126/91 (103) 94 Room Air 06/06/19 05:00 94 20 150/98 (115) 93 Room Air 06/06/19 04:00 81 14 107/81 (90) 96 Room Air 06/06/19 04:00 97 Room Air 06/06/19 04:00 98.8 06/06/19 03:00 88 19 130/85 (100) 93 Room Air 06/06/19 02:00 88 20 114/80 (91) 93 Room Air 06/06/19 01:00 82 18 110/65 (80) 93 Room Air 06/06/19 01:00 90 06/06/19 00:00 81 18 130/81 (97) 98 Room Air 06/06/19 00:00 97 Room Air 06/06/19 00:00 98.2 06/05/19 23:00 74 20 131/87 (102) 92 Room Air 06/05/19 22:00 74 15 110/70 (83) 97 Room Air 06/05/19 21:00 75 18 120/80 (93) 95 Room Air 06/05/19 20:00 75 20 121/82 (95) 97 Room Air 06/05/19 20:00 97 Room Air 06/05/19 20:00 98.3 06/05/19 19:00 77 06/05/19 19:00 76 21 110/71 (84) 96 Room Air 06/05/19 18:00 89 28 103/76 (85) 88 Room Air 06/05/19 17:00 80 17 120/83 (95) 89 Room Air 06/05/19 16:52 96 06/05/19 16:34 95 Room Air 06/05/19 16:30 90 06/05/19 16:30 90 14 137/108 (118) 95 Room Air 06/05/19 16:00 89 16 98/63 (75) 95 Room Air 06/05/19 15:29 105 20 128/91 95 Room Air 06/05/19 13:25 95.7 74 18 95/78 (84) 96 Room Air I & O 06/06/19 07:00 Intake Total 2900 ml Output Total 700 ml Balance 2200 ml Height & Weight Height: 5'4.00" Weight: 158lbs. 0.0oz. 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 -restart home amio, and cardizem Screen for KAMRAN secondary to difficult to control Afib -OUt pt testing MARYURI ANDRADE DO Jun 06, 2019 06:44
--- NOTE | 2019-06-06 06:48 | Diagnostic Imaging Report ---
Portable erect AP chest at 350 hours. INDICATION: Atrial fibrillation. FINDINGS: The mild cardiomegaly noted on the prior exam of 06/05/2019 is again evident and no different. The loop recorder device overlying the cardiac silhouette seen previously is also unchanged. The lungs remain clear. There is still no sign of failure, pneumonia or pleural effusion to indicate an acute abnormality. The mediastinum is not widened. The osseous structures are intact. IMPRESSION: There is no evidence for an acute abnormality. When compared to the previous study, there has been no significant change. Dictated by: Dictated on workstation # [id number]
[2019-06-06] MEDS: APIXABAN 5 MG (ELIQUIS) TABLET PO SCH ×2 (08:03→21:05)
[2019-06-06] MEDS: AMIODARONE 200 MG (CORDARONE) TAB PO SCH (08:04)
[2019-06-06] MEDS: busPIRone 10 MG (BUSPAR) TAB PO SCH ×2 (08:04→21:05)
[2019-06-06] MEDS: ALPRAZolam 0.5 MG (XANAX) TAB PO PRN ×2 (08:45→21:05)
--- NOTE | 2019-06-06 08:47 | History & Physical-Hospitalist ---
History of Present Illness HPI/Chief Complaint Patient is a 73-year-old female known to me from previous admissions with a past medical history of atrial fibrillation status post cardioversion and ablations who presented to the emergency department due to dizziness. She states for the past few days she has been dizzy and lightheaded when she stood up this was also caused her to be nauseous. Yesterday she also felt her heart was racing with the dizziness and decided to come to the emergency department for evaluation. On arrival she was found to be in atrial fibrillation with rapid ventricular rate and was admitted to the ICU for Cardizem drip. Overnight her rate improved and the Cardizem drip was discontinued but this morning her rate is still in the 120s. She denies any other symptoms including chest pain,shortness of breath, dyspnea on exertion, or syncope. Source: patient Date Seen 06/06/19 Time Seen by a Provider: 08:44 Attending Physician Diogo Ortiz MD PCP Sung Dunn DO Referring Physician Date of Admission Jun 05, 2019 at 15:51 Home Medications & Allergies Home Medications Reviewed patient Home Medication Reconciliation performed by pharmacy medication reconciliations sound technician and/or nursing. Patients Allergies have been reviewed. Allergies Allergies Coded Allergies Sulfa (Sulfonamide Antibiotics) (Verified Allergy, Severe, HIVES, 11/14/17) Tetracyclines (Verified Allergy, Unknown, HIVES, 06/21/18) amoxicillin (Verified Allergy, Unknown, hives, 11/09/16) clavulanic acid (Verified Allergy, Unknown, hives, 11/09/16) penicillin G (Verified Allergy, Unknown, HIVES, 06/21/18) Past Eawwrft-Tfidfx-Oyacxb Hx Past Med/Social Hx: Reviewed Nursing Past Med/Soc Hx Patient Social History Alcohol Use: Occasionally Uses Alcohol Beverage of Choice: Wine Recreational Drug Use: No Smoking Status: Never a Smoker 2nd Hand Smoke Exposure: No Recent Foreign Travel: No Contact w/other who traveled: No Recent Hopitalizations: No Recent Infectious Disease Expo: No Immunizations Up To Date Tetanus Booster (TDap): Unknown Pediatric: No Date of Pneumonia Vaccine: Sep 22, 2015 Date of Influenza Vaccine: Sep 01, 2017 Seasonal Allergies Seasonal Allergies: No Past Medical History Surgeries: Appendectomy, Cardiac, Joint Replacement, Orthopedic Cardiac: Atrial Fibrillation, High Cholesterol, Hypertension, Irregular Heartbeat : No Reproductive: No Sexually Transmitted Disease: No Gastrointestinal: Gastroesophageal Reflux Musculoskeletal: Arthritis, Chronic Back Pain Psychosocial: Anxiety, Depression History of Blood Disorders: No Adverse Reaction to Blood Garcia: No Family History Reviewed Nursing Family Hx Cardiovascular disease 19 FATHER (mi) Dementia 19 MOTHER Heart Disease Review of Systems Constitutional: No chills; dizziness; No fever EENTM: no symptoms reported Respiratory: No cough, No dyspnea on exertion, No short of breath Cardiovascular: No chest pain, No edema; palpitations; No syncope Gastrointestinal: No abdominal pain; constipation, nausea Musculoskeletal: joint pain (shoulder) Skin: no symptoms reported Psychiatric/Neurological: No Symptoms Reported Physical Exam Physical Exam Vital Signs Vital Signs - First Documented 06/05/19 13:25 Temp 95.7 Pulse 74 Resp 18 B/P (MAP) 95/78 (84) Pulse Ox 96 O2 Delivery Room Air Capillary Refill : Less Than 3 Seconds Height, Weight, BMI Height: 5'4.00" Weight: 158lbs. 0.0oz. [id number]; 27.1 BMI Method:Stated General Appearance: No Apparent Distress, WD/WN HEENT: Moist Mucous Membranes; No Scleral Icterus (L), No Scleral Icterus (R) Neck: Normal Inspection, Supple; No Thyromegaly Respiratory: Lungs Clear, No Accessory Muscle Use, No Respiratory Distress Cardiovascular: Normal Peripheral Pulses, Irregularly Irregular, Tachycardia Gastrointestinal: Normal Bowel Sounds, Non Tender, Soft Extremity: Normal Capillary Refill, No Calf Tenderness, No Pedal Edema Neurologic/Psychiatric: Alert, Oriented x3, Normal Mood/Affect; No Aphasia, No Facial Droop Skin: Normal Color, Warm/Dry Results Results/Procedures Labs Laboratory Tests 06/05/19 13:54 06/06/19 03:04 Patient resulted labs reviewed. Imaging: Reviewed Imaging Report Assessment/Plan Admission Diagnosis a-fib RVR Admission Status: Observation Assessment and Plan Assessment Atrial fibrillation elevated troponin Hypothyroidism Hypokalemia Plan Cardiology consult, appreciate Recs Currently on oral amiodarone and Cardizem May need to restart Cardizem drip if rate maintained in the 120s Troponin trending down and likely due to rapid ventricular rate Will check TSH Replace potassium Diagnosis/Problems Diagnosis/Problems (1) Atrial fibrillation with rapid ventricular response Status: Acute (2) Atrial fib/flutter, transient Status: Acute (3) HTN (hypertension) Qualifiers: Hypertension type: essential hypertension Qualified Codes: I10 - Essential (primary) hypertension (4) Hypothyroidism Qualifiers: Hypothyroidism type: unspecified Qualified Codes: E03.9 - Hypothyroidism, unspecified (5) Essential (primary) hypertension (6) Anxiety (7) Normocytic anemia (8) Hypomagnesemia (9) Hypokalemia Clinical Quality Measures DVT/VTE Risk/Contraindication: Risk Factor Score Per Nursin RFS Level Per Nursing on Admit: 4+=Very High DIOGO ORTIZ MD Jun 06, 2019 08:47
[2019-06-06] MEDS ORDERED: DILTIAZEM 120 MG (CARDIZEM CD) CAP PO SCH ×2 (09:00→11:15)
[2019-06-06] MEDS ORDERED: KCL 20 MEQ TAB (K-DUR) PO SCH (09:00)
[2019-06-06] MEDS ORDERED: DILTIAZEM 120 MG (CARDIZEM CD) CAP PO ONE (11:09)
--- NOTE | 2019-06-06 12:01 | Consultation-Cardiology ---
HPI-Cardiology Cardiology Consultation: Date of Consultation 06/06/19 Date of Admission Attending Physician Judith Ortiz MD Admitting Physician Sung Dunn DO Consulting Physician Heron HARRIS MD HPI: Time Seen by a Provider: 10:30 Chief Complaint: Palpitations This is a 73 year old lady who is a patient of Dr Price for Cardiology and Dr Coulter for EP at . I have also seen her previously for EP consultation. She has persistent AF and previous two ablations at . She visited Dr Coulter three months ago and was in AF with RVR and Cardioversion was done successfully. She presented to the ER with complains of dizziness. She's also been having palpitations and was found to have atrial fibrillation with rapid ventricular rate. She was admitted for Cardizem infusion. She denies any chest pain, shortness of breath, syncope or near syncope. Review of Systems-Cardiology Review of Systems Constitutional: As described under HPI; No As described under HPI, No no symptoms reported, No chills, No fever, No lightheadedness Eyes: No As described under HPI, No no symptoms reported, No blindness, No blurred vision, No contact lenses, No drainage, No decreased acuity, No foreign body sensation, No pain, No vision change Ears/Nose/Throat: No As described under HPI, No no symptoms reported, No chronic hearing loss, No ear discharge, No ear pain, No nasal drainage, No ulcerations Respiratory: No no symptoms reported; As described under HPI; No As described under HPI, No cough, No orthopnea, No shortness of breath, No SOB with excertion Cardiovascular: No no symptoms reported; As described under HPI; No As described under HPI, No chest pain, No edema, No irregular heart rate, No lightheadedness; palpitations Gastrointestinal: No no symptoms reported, No As described under HPI, No abdomen distended, No abdominal pain, No blood streaked bowels, No constipation, No diarrhea, No nausea, No vomiting, No stool coloration changes Genitourinary: No As described under HPI, No burning, No dysuria, No discharge, No frequency, No flank pain, No hematuria, No urgency : No Skin: No rash, No skin related problems, No ulcerations Psychiatric/Neurological: No anxiety, No depression, No seizure, No focal weakness, No syncope Hematologic: No bleeding abnormalities All Other Systems Reviewed Negative Unless Noted: Yes RAJ-Kpzcqa-Jvswej Hx Patient Social History Alcohol Use: Occasionally Uses Recreational Drug Use: No Smoking Status: Never a Smoker 2nd Hand Smoke Exposure: No Recent Foreign Travel: No Recent Infectious Disease Expo: No Hospitalization with Isolation: Denies Immunizations Up To Date Tetanus Booster (TDap): Unknown Date of Pneumonia Vaccine: Sep 22, 2015 Date of Influenza Vaccine: Sep 01, 2017 Past Medical History PMH As described under Assessment. Family Medical History Family History: Cardiovascular disease 19 FATHER (mi) Dementia 19 MOTHER Allergies and Home Medications Allergies Coded Allergies: Sulfa (Sulfonamide Antibiotics) (Verified Allergy, Severe, HIVES, 11/14/17) Tetracyclines (Verified Allergy, Unknown, HIVES, 06/21/18) amoxicillin (Verified Allergy, Unknown, hives, 11/09/16) clavulanic acid (Verified Allergy, Unknown, hives, 11/09/16) penicillin G (Verified Allergy, Unknown, HIVES, 06/21/18) Home Medications Acetaminophen/Diphenhydramine 1 Each Tablet, 1 TAB PO HS, (Reported) Alprazolam 1 Mg Tablet, 1 MG PO BID, (Reported) Amiodarone HCl 200 Mg Tablet, 100 MG PO BID Prescribed by: RENÉ PRICE on 06/23/18 07 Apixaban 5 Mg Tablet, 5 MG PO BID, (Reported) Biotin 5,000 Mcg Tab.rapdis, 5,000 MCG PO DAILY, (Reported) Buspirone HCl 10 Mg Tablet, 10 MG PO BID, (Reported) Diltiazem HCl 120 Mg Cap.er.24h, 120 MG PO DAILY Prescribed by: RENÉ PRICE on 06/23/18 0711 Fenofibrate,Micronized 200 Mg Capsule, 200 MG PO DAILY, (Reported) Hydrocodone Bit/Acetaminophen 1 Tab Tab, 1 EACH PO Q4-6HR PRN for PAIN-MODERATE Prescribed by: URBANO COATS on 06/02/19 120 Levocetirizine Dihydrochloride 5 Mg Tablet, 5 MG PO HS PRN for ALLERGIES, (Reported) Magnesium Oxide 400 Mg Tablet, 400 MG PO DAILY, (Reported) Bancroft-3S/Dha/Epa/Fish Oil 1 Each Capsule.dr, 1 EACH PO BID, (Reported) Omeprazole 40 Mg Capsule.dr, 40 MG PO DAILY, (Reported) Potassium Gluconate 99 Mg Tablet, 99 MG PO DAILY, (Reported) Pravastatin Sodium 40 Mg Tablet, 40 MG PO DAILY, (Reported) Raloxifene HCl 60 Mg Tablet, 60 MG PO DAILY, (Reported) Sertraline HCl 50 Mg Tablet, 50 MG PO DAILY, (Reported) Vitamin E Acetate 400 Unit Capsule, 400 UNIT PO DAILY, (Reported) Patient Home Medication List Home Medication List Reviewed: Yes Physical Exam-Cardiology Physical Exam Vital Signs/I&O 06/06/19 06/06/19 06/06/19 06/06/19 07:00 07:00 08:00 08:00 Temp 96.7 Pulse 107 100 112 Resp 58 20 B/P (MAP) 125/107 (113) 126/70 (88) Pulse Ox 96 96 O2 Delivery Room Air Room Air Room Air 06/06/19 06/06/19 06/06/19 06/06/19 09:00 10:00 11:00 12:00 Pulse 111 80 112 108 Resp 21 9 32 14 B/P (MAP) () 109/77 (88) 120/91 (101) 122/99 (107) Pulse Ox 95 97 95 99 O2 Delivery Room Air Room Air Room Air Room Air 06/06/19 06/06/19 06/06/19 06/06/19 12:00 12:00 13:00 13:00 Temp 98.2 Pulse 101 101 Resp 16 B/P (MAP) 119/80 (93) Pulse Ox 96 96 O2 Delivery Room Air Room Air 06/06/19 06/06/19 06/06/19 06/06/19 14:00 15:00 16:00 16:00 Pulse 89 80 81 Resp 23 20 18 B/P (MAP) 122/81 (95) 115/76 (89) 109/76 (87) Pulse Ox 94 96 100 93 O2 Delivery Room Air Room Air Room Air Room Air 06/06/19 06/06/19 16:00 17:00 Temp 96.6 Pulse 98 Resp 35 B/P (MAP) 135/116 (122) Pulse Ox 96 O2 Delivery Room Air 06/06/19 00:00 Intake Total 2800 ml Balance 2800 ml Capillary Refill : Less Than 3 Seconds Constitutional: appears stated age, AAO x 3; No apparent distress; well- developed, well-nourished HEENT: PERRL; No normal ENT inspection, No TMs normal, No pharynx normal, No scleral icterus (R), No scleral icterus (L), No pale conjunctivae (R), No pale conjunctivae (L), No photophobia, No TM abnormal (R), No TM abnormal (L), No pharyngeal erythema, No tonsillar exudate, No other, No discharge, No EOMI; hearing is well preserved; No hard of hearing; oral hygience is good; No u lceration, No xanthelasmas are seen Neck: No non-tender, No full range of motion, No supple, No normal inspection, No carotid bruit, No limited range of motion, No lymphadenopathy (R), No lymphadenopathy (L), No tender lateral, No tender midline, No thyromegaly, No other; carotid pulses are 2 + bilaterally; No with good upstrokes Respiratory: No accessory muscle use, No respiratory distress, No chest tender, No chest expansion is symmetric; chest is bilaterally symmetric; No lungs clear to percussion; lungs clear to auscultation; No crackles, No rhonchi, No rales, No stridor, No wheezing, No pleural rub, No other Cardiovascular: irregularly irregular, tachycardia, S1 and S2 Gastrointestinal: No tender, No soft, No round, No distended, No pulsatile mass, No organomegaly, No guarding, No rebound, No tenderness, No hernia, No mass, No audible bowel sounds, No abnormal bowel sounds, No abdominal bruits, No spleenomegaly, No other Rectal: deferred Extremities: No normal range of motion, No non-tender, No normal inspection, No pedal edema, No calf tenderness, No normal capillary refill, No pelvis stable, No calf tenderness, No inflammation, No pedal edema, No slow capillary refill, No swelling, No other, No abrasion, No clubbing, No cyanosis, No ecchymosis, No laceration, No no lower extremity edema bilateral, No significant edema, No tenderness, No wound Neurologic/Psychiatric: no motor/sensory deficits, alert, normal mood/affect, oriented x 3, power is 5/5 both on sides Skin: No normal color, No warm/dry, No cyanosis, No cool, No diaphoresis, No damp, No ecchymosis, No jaundice, No mottled, No pallor, No rash, No tattoos/piercings, No ulcerations, No rash on exposed areas, No ulcerations on exposed areas, No other Data Review Labs Laboratory Tests 06/05/19 23:45: Troponin I 0.106H 06/06/19 03:04: White Blood Count 4.7, Red Blood Count 3.48L, Hemoglobin 9.7L, Hematocrit 30L, Mean Corpuscular Volume 87, Mean Corpuscular Hemoglobin 28, Mean Corpuscular Hemoglobin Concent 32, Red Cell Distribution Width 15.1H, Platelet Count 322, Mean Platelet Volume 10.4, Neutrophils (%) (Auto) 54, Lymphocytes (%) (Auto) 36, Monocytes (%) (Auto) 8, Eosinophils (%) (Auto) 3, Basophils (%) (Auto) 0, Neutrophils # (Auto) 2.5, Lymphocytes # (Auto) 1.7, Monocytes # (Auto) 0.4, Eosinophils # (Auto) 0.1, Basophils # (Auto) 0.0, Sodium Level 142, Potassium Level 3.0L, Chloride Level 111H, Carbon Dioxide Level 21, Anion Gap 10, Blood Urea Nitrogen 13, Creatinine 0.76, Estimat Glomerular Filtration Rate > 60, BUN/Creatinine Ratio 17, Glucose Level 87, Calcium Level 8.6, Corrected Calcium 9.0, Phosphorus Level 3.2, Magnesium Level 1.7L, Total Bilirubin 0.3, Aspartate Amino Transf (AST/SGOT) 24, Alanine Aminotransferase (ALT/SGPT) 17, Alkaline Phosphatase 34L, Total Protein 6.3L, Albumin 3.5 06/06/19 05:40: Troponin I 0.083H, Thyroid Stimulating Hormone (TSH) 4.67 ECG Impression ECG Initial ECG Impression: Atrial Fibrillation w/RVR A/P-Cardiology Assessment/Admission Diagnosis Atrial fibrillation with rapid ventricular rate, Type II myocardial infarction (very likely). Continue checking the trend. If significant increase, may consider coronary angiography. Nonobstructive coronary artery disease per cardiac catheterization done on October 30, 2015. Continue to monitor [id number] score is 3, yearly risk of stroke without oral anticoagulation is 3.2 percent which is considered high risk for stroke, maintained on Eliquis. Nonsustained ventricular tachycardia, multiple episodes of wide-complex tachycardia appeared to be nonsustained, patient was on flecainide at that time, cardiac catheterization was done in October 2015 and it was normal. No recurrence since discontinuation of flecainide. Continue to monitor Hypertension, borderline hypotensive at this time. Continue to monitor blood pressure Hyperlipidemia, continue to monitor lipids History of intolerance to amiodarone secondary to elevated LFTs, restarting am iodarone and monitoring liver function tests closely Gastroesophageal reflux disease-continue current medication. Mild bilateral carotid stenosis, last ultrasound was done in May 2017, continue to monitor Hyperthyroidism, followed and manged by Dr Vanessa in [place] Plan Cardizem infusion held overnight due to hypotension. Was on Cardizem CD 120 mg by mouth. Will increase the dose to 240 mg. Continue amiodarone and oral anticoagulation. If the patient does not convert by tomorrow morning, we will consider cardioversion since the patient has been on uninterrupted oral anticoagulation for at least the last one month. If the patient continues to have atrial fibrillation with rapid ventricular episodes, and if the patient is not a candidate for repeat atrial fibrillation ablation, the other option is permanent pacemaker and AV node ablation. I discussed with the patient briefly. Borderline positive troponin. Likely type II myocardial infarction. However we will do serial troponin and if any significant increase, we will consider coronary angiography. Thank you for your consultation. Please call me if you have any questions. Alyce Harris MD, FACP, FACC, FSCAI, FHRS, CCDS Interventional Cardiology Cardiac Electrophysiology Vascular Medicine and Endovascular Interventions Clinical Quality Measures DVT/VTE Risk/Contraindication: Risk Factor Score Per Nursin RFS Level Per Nursing on Admit: 4+=Very High Heron HARRIS MD Jun 06, 2019 12:01
[2019-06-06] MEDS: DILTIAZEM 125 MG/NS 100 ML IV SCH ×2 (16:52)
[2019-06-07] VITALS (23 sets, daily range): BP systolic 109–159; BP diastolic 55–107
--- NOTE | 2019-06-07 02:07 | NUR ---
WHEN PT IS LAYING N BED, MONITOR SHOWS SR WITH SOME PAC'S, WHEN SHE GETS UP TO BSC, MONOITOR SHOW A-FIB 130 TO 150 THEN SLOWS BACK DOWN TO SR WHEN SHE IS BACK IN BED
[2019-06-07 03:12] LABS: BASOPHILS % (AUTO) 0 % (0-10); EOSINOPHILS # (AUTO) 0.1 10^3/uL (0.0-0.3); EOSINOPHILS % (AUTO) 3 % (0-10); HEMATOCRIT 32 % (35-52); HEMOGLOBIN 10.1 G/DL (11.5-16.0); LYMPHOCYTES # (AUTO) 1.4 X 10^3 (1.0-4.0); LYMPHOCYTES % (AUTO) 28 % (12-44); MEAN CORPUSCULAR HEMOGLOBIN 28 PG (25-34); MEAN CORPUSCULAR HGB CONC 32 G/DL (32-36); MEAN CORPUSCULAR VOLUME 87 FL (80-99); MEAN PLATELET VOLUME 10.4 FL (7.4-10.4); MONOCYTES # (AUTO) 0.5 X 10^3 (0.0-1.0); MONOCYTES % (AUTO) 10 % (0-12); NEUTROPHILS # (AUTO) 3.1 X 10^3 (1.8-7.8); NEUTROPHILS % (AUTO) 60 % (42-75); PLATELET COUNT 331 10^3/uL (130-400); RED CELL DISTRIBUTION WIDTH 14.9 % (10.0-14.5); WHITE BLOOD COUNT 5.1 10^3/uL (4.3-11.0)
[2019-06-07 03:32] LABS: BUN/CREATININE RATIO 11; CALCIUM 9.1 MG/DL (8.5-10.1); CARBON DIOXIDE 18 MMOL/L (21-32); CHLORIDE 113 MMOL/L (98-107); CREATININE SERUM 0.79 MG/DL (0.60-1.30); GFR ESTIMATED > 60; GLUCOSE 87 MG/DL (70-105); MAGNESIUM 1.9 MG/DL (1.8-2.4); PHOSPHORUS 2.9 MG/DL (2.3-4.7); POTASSIUM 3.6 MMOL/L (3.6-5.0); SODIUM 142 MMOL/L (135-145)
[2019-06-07] MEDS: POTASSIUM CL 10MEQ/50ML IVPB 50 ML IV SCH ×3 (04:45→05:53)
[2019-06-07] MEDS: MAGNESIUM 1 GM/100 ML IVPB 100 ML IV SCH (04:47)
[2019-06-07] MEDS: KCL 20 MEQ TAB (K-DUR) PO SCH (04:47)
--- NOTE | 2019-06-07 06:29 | Pulmonary Progress Note ---
Sepsis Event Evaluation Height, Weight, BMI Height: 5'4.00" Weight: 157lbs. 0.0oz. [id number]; 27.1 BMI Method:Stated Exam Exam Vital Signs Date Time Temp Pulse Resp B/P (MAP) Pulse Ox O2 Delivery O2 Flow Rate FiO2 06/07/19 06:00 82 19 122/96 (105) 95 Room Air 06/07/19 05:00 81 21 133/95 (108) 93 Room Air 06/07/19 04:00 100 Room Air 06/07/19 04:00 80 19 124/92 (103) 92 Room Air 06/07/19 03:00 84 21 133/98 (110) 95 Room Air 06/07/19 02:00 96 18 139/101 (114) 94 Room Air 06/07/19 01:00 86 19 134/99 (111) 94 Room Air 06/07/19 01:00 91 06/07/19 00:09 82 20 135/96 (109) 92 Room Air 06/07/19 00:00 100 Room Air 06/06/19 23:00 92 10 152/99 (116) 98 Room Air 06/06/19 22:00 82 13 118/74 (89) 96 Room Air 06/06/19 21:39 82 15 132/92 (105) 97 Room Air 06/06/19 20:00 86 36 97 Room Air 06/06/19 20:00 96.9 06/06/19 20:00 100 Room Air 06/06/19 19:55 88 06/06/19 19:00 87 9 113/92 (99) 97 Room Air 06/06/19 18:00 98 12 113/79 (90) 97 Room Air 06/06/19 17:00 98 35 135/116 (122) 96 Room Air 06/06/19 16:00 96.6 06/06/19 16:00 81 18 109/76 (87) 93 Room Air 06/06/19 16:00 100 Room Air 06/06/19 15:00 80 20 115/76 (89) 96 Room Air 06/06/19 14:00 89 23 122/81 (95) 94 Room Air 06/06/19 13:00 101 06/06/19 13:00 101 16 119/80 (93) 96 Room Air 06/06/19 12:00 96 Room Air 06/06/19 12:00 98.2 06/06/19 12:00 108 14 122/99 (107) 99 Room Air 06/06/19 11:00 112 32 120/91 (101) 95 Room Air 06/06/19 10:00 80 9 109/77 (88) 97 Room Air 06/06/19 09:00 111 21 () 95 Room Air 06/06/19 08:00 96.7 112 20 126/70 (88) 96 Room Air 06/06/19 08:00 96 Room Air 06/06/19 07:00 100 58 125/107 (113) Room Air 06/06/19 07:00 107 I & O 06/07/19 07:00 Intake Total 3780 ml Output Total 3900 ml Balance -120 ml Height & Weight Height: 5'4.00" Weight: 157lbs. 0.0oz. 71.075574vi; 27.1 BMI Method:Stated General Appearance: No Apparent Distress, WD/WN HEENT: Moist Mucous Membranes; No Scleral Icterus (L), No Scleral Icterus (R) Neck: Normal Inspection, Supple; No Thyromegaly Respiratory: Lungs Clear, No Accessory Muscle Use, No Respiratory Distress Cardiovascular: Normal Peripheral Pulses, Irregularly Irregular, Tachycardia Capillary Refill: Less Than 3 Seconds Extremity: Normal Capillary Refill, No Calf Tenderness, No Pedal Edema Neurologic/Psychiatric: Alert, Oriented x3, Normal Mood/Affect; No Aphasia, No Facial Droop Skin: Normal Color, Warm/Dry Results Lab Laboratory Tests 06/05/19 13:54 06/06/19 03:04 06/07/19 02:55 Assessment/Plan Assessment/Plan Paroxysmal Afib - currently sinus - amio, and cardizem -Cardiology following -Possible ablation Screen for KAMRAN secondary to difficult to control Afib -OUt pt testing MARYURI ANDRADE DO Jun 07, 2019 06:29
--- NOTE | 2019-06-07 07:54 | NUR ---
PT C/O ALLERGY S/S/CONGESTION AND REQUESTING BENADRYL. DR ANN NOTIFIED, NEW ORDERS RECEIVED.
[2019-06-07] MEDS ORDERED: diphenhydrAMINE 25 MG TAB (BENADRYL) PO PRN (08:00)
[2019-06-07] MEDS: ALPRAZolam 0.5 MG (XANAX) TAB PO PRN ×2 (08:02→18:39)
[2019-06-07] MEDS: APIXABAN 5 MG (ELIQUIS) TABLET PO SCH ×2 (08:02→21:56)
[2019-06-07] MEDS: DILTIAZEM 240 MG (CARDIZEM CD) CAP PO SCH (08:02)
[2019-06-07] MEDS: AMIODARONE 200 MG (CORDARONE) TAB PO SCH (08:02)
[2019-06-07] MEDS: busPIRone 10 MG (BUSPAR) TAB PO SCH ×2 (08:02→21:56)
[2019-06-07] MEDS: NS IV 1000 ML 1,000 ML IV SCH ×2 (08:03→16:59)
--- NOTE | 2019-06-07 08:24 | Diagnostic Imaging Report ---
Indication: Afib and dyspnea. Comparison made with prior examination of 06/06/2019. Findings: There is cardiomegaly. Pacemaker overlies the left heart. No pleural effusion or pneumothorax. Mediastinum unremarkable. Impression: No acute cardiomegaly abnormality. Cardiomegaly. Dictated by: Dictated on workstation # [id number]
[2019-06-07] MEDS ORDERED: AMIO200T4 PO (10:51)
[2019-06-07] MEDS ORDERED: ENAL20TA PO (10:51)
[2019-06-07] MEDS ORDERED: LEVO5TAB12 PO (10:51)
[2019-06-07] MEDS ORDERED: DILT240C PO (10:51)
[2019-06-07] MEDS ORDERED: MONT10TA24 PO (10:51)
[2019-06-07] MEDS ORDERED: ATOR20TA66 PO (10:51)
[2019-06-07] MEDS ORDERED: MAGN250T35 PO (10:51)
[2019-06-07] MEDS ORDERED: SERT50TA9 PO (10:51)
--- NOTE | 2019-06-07 11:00 | NUR ---
PATIENT HAD A LIST OF HER MEDICATIONS. THAT LIST WAS ALSO SCANNED INTO HER RECORD. I COMPARED IT WITH THE EXT MED HX AND SHE VERIFIED HOW SHE TAKES THEM. HER AMIODARONE 200MG WAS FILLED TID #270 11-09-18 - SHE STATES THIS HAS BEEN DECREASED TO 1 TAB DAILY AND THAT IS WHY SHE HAS NOT FILLED IT IN SOME TIME. HER ENALAPRIL WAS LAST FILLED #30 11-11-18 - SHE STATES SHE IS TO TAKE IT DAILY AND SHE DID NOT REALIZE SHE WAS OUT OF THIS. SHE EXPRESSED DIFFICULTY GETTING HER PRESCRIPTION REFILLS AUTHORIZED SINCE DR. WILSON'S OFFICE CHANGED. SHE ASSUMES HE REQUESTED THE REFILL AND TOSSED THE BOTTLE AND IT JUST FELL THROUGH THE CRACKS OF GETTING AUTHORIZED AND SHE FORGOT ABOUT IT. SHE STATES SHE THINKS SHE IS TO BE TAKING IT STILL AND WILL DISCUSS WITH HER DR. I LEFT IT ON THE MED REC AND NOTED THE PAST DUE FILL DATE. SHE IS NO LONGER TAKING THE FOLLOWING MEDICATIONS THAT WERE RECENTLY FILLED: HYDROCODONE BACLOFEN TRAMADOL IN ADDITION TO HER LIST SHE VERIFIED SHE IS TAKING BUSPIRONE BID AND SERTRALINE DAILY. SHE TAKES THE FOLLOWING OTC: FISH OIL BID MAG 250MG HS TYLENOL PM HS
--- NOTE | 2019-06-07 11:10 | NUR ---
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
--- NOTE | 2019-06-07 12:57 | Cardiology Progress Note ---
Cardiology SOAP Progress Note Subjective: Still in atrial fibrillation. Objective: I&O/Vital Signs 06/07/19 06/07/19 06/07/19 06/07/19 01:00 01:00 02:00 03:00 Pulse 91 86 96 84 Resp 21 B/P (MAP) 134/99 (111) 139/101 (114) 133/98 (110) Pulse Ox 94 94 95 O2 Delivery Room Air Room Air Room Air 06/07/19 06/07/19 06/07/19 06/07/19 04:00 04:00 05:00 06:00 Pulse 80 81 82 Resp 19 B/P (MAP) 124/92 (103) 133/95 (108) 122/96 (105) Pulse Ox 92 100 93 95 O2 Delivery Room Air Room Air Room Air Room Air 06/07/19 06/07/19 06/07/19 06/07/19 07:00 07:00 08:00 08:00 Temp 97.3 Pulse 128 105 87 Resp 27 B/P (MAP) 159/95 (116) 140/101 (114) Pulse Ox 90 92 O2 Delivery Room Air Room Air 06/07/19 06/07/19 06/07/19 06/07/19 08:00 09:00 10:00 11:00 Pulse 85 108 112 Resp 23 21 32 B/P (MAP) 133/101 (112) 153/103 (120) 136/90 (105) Pulse Ox 95 97 97 O2 Delivery Room Air Room Air Room Air Room Air 06/07/19 06/07/19 06/07/19 06/07/19 11:36 12:00 12:00 12:41 Temp 97.7 Pulse 112 104 Resp 21 B/P (MAP) 140/82 (101) Pulse Ox 97 O2 Delivery Room Air Room Air 06/07/19 00:00 Intake Total 2280 ml Output Total 2450 ml Balance -170 ml Weight (Pounds): 156 Weight (Ounces): 0.0 Weight (Calculated Kilograms): 70.123606 Constitutional: appears stated age, AAO x 3; No apparent distress; well- developed, well-nourished Respiratory: No accessory muscle use, No respiratory distress, No chest tender, No chest expansion is symmetric; chest is bilaterally symmetric; No lungs clear to percussion; lungs clear to auscultation; No crackles, No rhonchi, No rales, No stridor, No wheezing, No pleural rub, No other Cardiovascular: irregularly irregular, tachycardia, S1 and S2 Gastrointestional: No tender, No soft, No round, No distended, No pulsatile mass, No organomegaly, No guarding, No rebound, No tenderness, No hernia, No mass, No audible bowel sounds, No abnormal bowel sounds, No abdominal bruits, No spleenomegaly, No other Extremities: No normal range of motion, No non-tender, No normal inspection, No pedal edema, No calf tenderness, No normal capillary refill, No pelvis stable, N o calf tenderness, No inflammation, No pedal edema, No slow capillary refill, No swelling, No other, No abrasion, No clubbing, No cyanosis, No ecchymosis, No laceration, No no lower extremity edema bilateral, No significant edema, No tenderness, No wound Neurologic/Psychiatric: no motor/sensory deficits, alert, normal mood/affect, oriented x 3, power is 5/5 both on sides Skin: No normal color, No warm/dry, No cyanosis, No cool, No diaphoresis, No damp, No ecchymosis, No jaundice, No mottled, No pallor, No rash, No tattoos/piercings, No ulcerations, No rash on exposed areas, No ulcerations on exposed areas, No other Results/Procedures: Labs Laboratory Tests 06/07/19 02:55: White Blood Count 5.1, Red Blood Count 3.61L, Hemoglobin 10.1L, Hematocrit 32L, Mean Corpuscular Volume 87, Mean Corpuscular Hemoglobin 28, Mean Corpuscular Hemoglobin Concent 32, Red Cell Distribution Width 14.9H, Platelet Count 331, Mean Platelet Volume 10.4, Neutrophils (%) (Auto) 60, Lymphocytes (%) (Auto) 28, Monocytes (%) (Auto) 10, Eosinophils (%) (Auto) 3, Basophils (%) (Auto) 0, Neutrophils # (Auto) 3.1, Lymphocytes # (Auto) 1.4, Monocytes # (Auto) 0.5, Eosinophils # (Auto) 0.1, Basophils # (Auto) 0.0, Sodium Level 142, Potassium Level 3.6, Chloride Level 113H, Carbon Dioxide Level 18L, Anion Gap 11, Blood Urea Nitrogen 9, Creatinine 0.79, Estimat Glomerular Filtration Rate > 60, BUN/Creatinine Ratio 11, Glucose Level 87, Calcium Level 9.1, Phosphorus Level 2.9, Magnesium Level 1.9 A/P: Assessment/Dx: Atrial fibrillation with rapid ventricular rate, Type II myocardial infarction (very likely). Continue checking the trend. If significant increase, may consider coronary angiography. Nonobstructive coronary artery disease per cardiac catheterization done on October 30, 2015. Continue to monitor [id number] score is 3, yearly risk of stroke without oral anticoagulation is 3.2 percent which is considered high risk for stroke, maintained on Eliquis. Nonsustained ventricular tachycardia, multiple episodes of wide-complex tachycardia appeared to be nonsustained, patient was on flecainide at that time, cardiac catheterization was done in October 2015 and it was normal. No recurrence since discontinuation of flecainide. Continue to monitor Hypertension, borderline hypotensive at this time. Continue to monitor blood pressure Hyperlipidemia, continue to monitor lipids History of intolerance to amiodarone secondary to elevated LFTs, restarting amiodarone and monitoring liver function tests closely Gastroesophageal reflux disease-continue current medication. Mild bilateral carotid stenosis, last ultrasound was done in May 2017, continue to monitor Hyperthyroidism, followed and manged by Dr Vanessa in [place] Plan: Cardizem infusion held overnight due to hypotension. Was on Cardizem CD 120 mg by mouth. Will increase the dose to 240 mg. Continue amiodarone and oral anticoagulation. we will consider cardioversion since the patient has been on uninterrupted oral anticoagulation for at least the last one month. If the patient continues to have atrial fibrillation with rapid ventricular episodes, and if the patient is not a candidate for repeat atrial fibrillation ablation, the other option is permanent pacemaker and AV node ablation. I discussed with the patient briefly. Borderline positive troponin. Likely type II myocardial infarction. However we will do serial troponin and if any significant increase, we will consider coronary angiography. Thank you for your consultation. Please call me if you have any questions. Alyce Singh MD, FACP, FACC, FSCAI, FHRS, CCDS Interventional Cardiology Cardiac Electrophysiology Vascular Medicine and Endovascular Interventions Heron SINGH MD Jun 07, 2019 12:57 pm
--- NOTE | 2019-06-07 16:15 | NUR ---
TODAYS EKG REVIEWED BY DR SINGH, PER DR AMIN TO D/C PT.
[2019-06-07] MEDS: DILTIAZEM 125 MG/NS 100 ML IV SCH ×2 (16:17)
--- NOTE | 2019-06-07 16:31 | NUR ---
PT CONVERTED TO A FLUTTER. DR SINGH INFORMED.
--- NOTE | 2019-06-07 16:34 | Progress Note - Hospitalist ---
Progress Note Progress Notes/Assess & Plan Date Seen 06/07/19 Time Seen by Provider: 16:31 Assessment & Plan The patient is a 73-year-old white female known to me. She has atrial fibrillation and has had multiple previous admissions for rapid ventricular response. She has also had several ablations only to have recurrence of RVR. She has been cleared by Dr. Harris for discharge this afternoon. Her rate continues to run in the 100-130 range. She is without symptoms. Physical exam: She is alert and oriented. Lungs are clear to auscultation. CV is of variable rate and is irregular. Extremities show no pedal edema. Impression: Atrial fibrillation with rapid ventricular response. 2.recurrent atrial fibrillation after multiple ablations. Plan: Discharge. See discharge sequence for medications and routines. SARAH ANN MD Jun 07, 2019 16:33
--- NOTE | 2019-06-07 16:38 | NUR ---
PT'S HR BACK UP TO 181 WHILE WALKING AROUND ROOM. BOTH DR ANN AND DR SINGH INFORMED.
[2019-06-07] MEDS ORDERED: DILTIAZEM 120 MG (CARDIZEM CD) CAP PO NR (16:45)
[2019-06-07] MEDS ORDERED: DILTIAZEM 120 MG (CARDIZEM CD) CAP PO ONE (16:47)
[2019-06-07] MEDS: ACETAMINOPHEN 500 MG TAB (TYLENOL) PO PRN (18:47)
[2019-06-07] MEDS ORDERED: POLYETHYLENE GLYCOL 17 GM (MIRALAX) PACK PO PRN (21:30)
[2019-06-08] VITALS (13 sets, daily range): BP systolic 100–162; BP diastolic 74–109
[2019-06-08 03:32] LABS: BASOPHILS % (AUTO) 0 % (0-10); EOSINOPHILS # (AUTO) 0.1 10^3/uL (0.0-0.3); EOSINOPHILS % (AUTO) 3 % (0-10); HEMATOCRIT 31 % (35-52); HEMOGLOBIN 9.7 G/DL (11.5-16.0); LYMPHOCYTES # (AUTO) 1.3 X 10^3 (1.0-4.0); LYMPHOCYTES % (AUTO) 29 % (12-44); MEAN CORPUSCULAR HEMOGLOBIN 28 PG (25-34); MEAN CORPUSCULAR HGB CONC 32 G/DL (32-36); MEAN CORPUSCULAR VOLUME 87 FL (80-99); MEAN PLATELET VOLUME 10.3 FL (7.4-10.4); MONOCYTES # (AUTO) 0.5 X 10^3 (0.0-1.0); MONOCYTES % (AUTO) 11 % (0-12); NEUTROPHILS # (AUTO) 2.6 X 10^3 (1.8-7.8); NEUTROPHILS % (AUTO) 58 % (42-75); PLATELET COUNT 307 10^3/uL (130-400); RED CELL DISTRIBUTION WIDTH 14.9 % (10.0-14.5); WHITE BLOOD COUNT 4.5 10^3/uL (4.3-11.0)
[2019-06-08] MEDS: NS IV 1000 ML 1,000 ML IV SCH (03:45)
[2019-06-08 03:48] LABS: BUN/CREATININE RATIO 15; CALCIUM 9.1 MG/DL (8.5-10.1); CARBON DIOXIDE 20 MMOL/L (21-32); CHLORIDE 111 MMOL/L (98-107); GFR ESTIMATED > 60; GLUCOSE 86 MG/DL (70-105); MAGNESIUM 1.7 MG/DL (1.8-2.4); PHOSPHORUS 3.7 MG/DL (2.3-4.7); POTASSIUM 3.2 MMOL/L (3.6-5.0); SODIUM 140 MMOL/L (135-145)
[2019-06-08] MEDS: ACETAMINOPHEN 500 MG TAB (TYLENOL) PO PRN (04:49)
[2019-06-08] MEDS: MAGNESIUM 1 GM/100 ML IVPB 100 ML IV SCH ×3 (04:50→06:50)
[2019-06-08] MEDS: POTASSIUM CL 10MEQ/50ML IVPB 50 ML IV SCH ×7 (04:50→11:14)
--- NOTE | 2019-06-08 05:36 | Pulmonary Progress Note ---
Subjective Time Seen by a Provider: 07:12 Subjective/Events-last exam PT feels better. Sepsis Event Evaluation Height, Weight, BMI Height: 5'4.00" Weight: 156lbs. 0.0oz. 70.282345mt; 27.1 BMI Method:Stated Exam Exam Vital Signs Date Time Temp Pulse Resp B/P (MAP) Pulse Ox O2 Delivery O2 Flow Rate FiO2 06/08/19 04:00 Room Air 06/08/19 04:00 81 15 133/93 (106) Room Air 06/08/19 04:00 97.8 06/08/19 03:00 79 18 133/90 (104) Room Air 06/08/19 02:00 81 17 124/85 (98) 97 Room Air 06/08/19 01:00 104 18 127/86 (100) 96 Room Air 06/08/19 01:00 104 06/08/19 00:00 Room Air 06/08/19 00:00 92 18 113/74 (87) Room Air 06/08/19 00:00 97.0 06/07/19 23:00 80 20 122/81 (95) Room Air 06/07/19 22:00 80 20 125/91 (102) 98 Room Air 06/07/19 21:00 88 27 128/90 (103) Room Air 06/07/19 20:00 101 24 109/75 (86) Room Air 06/07/19 20:00 98.1 06/07/19 20:00 Room Air 06/07/19 19:00 131 14 137/55 (82) Room Air 06/07/19 19:00 131 06/07/19 18:00 134 37 114/58 (76) 94 Room Air 06/07/19 17:00 122 17 123/107 (112) 94 Room Air 06/07/19 16:31 181 06/07/19 16:00 105 29 144/89 (107) 97 Room Air 06/07/19 16:00 97.9 06/07/19 15:06 Room Air 06/07/19 15:00 111 10 143/97 (112) 93 Room Air 06/07/19 14:00 90 23 94 Room Air 06/07/19 13:00 102 20 129/91 (104) 97 Room Air 06/07/19 12:41 104 06/07/19 12:00 112 21 140/82 (101) 97 Room Air 06/07/19 12:00 97.7 06/07/19 11:36 Room Air 06/07/19 11:00 112 32 136/90 (105) 97 Room Air 06/07/19 10:00 108 21 153/103 (120) 97 Room Air 06/07/19 09:00 85 23 133/101 (112) 95 Room Air 06/07/19 08:00 Room Air 06/07/19 08:00 97.3 06/07/19 08:00 87 27 140/101 (114) 92 Room Air 06/07/19 07:00 105 06/07/19 07:00 128 19 159/95 (116) 90 Room Air 06/07/19 06:00 82 19 122/96 (105) 95 Room Air I & O 06/08/19 07:00 Intake Total 3200 ml Output Total 2200 ml Balance 1000 ml Height & Weight Height: 5'4.00" Weight: 156lbs. 0.0oz. 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
[2019-06-08] MEDS ORDERED: MAGNESIUM 1 GM/100 ML IVPB 100 ML IV ONE (05:45)
[2019-06-08] MEDS: KCL 20 MEQ TAB (K-DUR) PO SCH (06:50)
--- NOTE | 2019-06-08 07:23 | Diagnostic Imaging Report ---
INDICATION: ICU followup atrial fibrillation with right ventricular regurgitation. COMPARISON STUDY: Chest from yesterday. FINDINGS: Portable upright view of the chest demonstrates stable cardiomegaly with ekg monitor tech in place. The lungs are clear. The vascularity is normal. There are no pleural effusions. IMPRESSION: Stable cardiomegaly. Dictated by: Dictated on workstation # [id number]
[2019-06-08] MEDS: busPIRone 10 MG (BUSPAR) TAB PO SCH (08:39)
[2019-06-08] MEDS: ALPRAZolam 0.5 MG (XANAX) TAB PO PRN (08:39)
[2019-06-08] MEDS: DILTIAZEM 240 MG (CARDIZEM CD) CAP PO SCH (08:39)
[2019-06-08] MEDS: APIXABAN 5 MG (ELIQUIS) TABLET PO SCH (08:40)
[2019-06-08] MEDS: AMIODARONE 200 MG (CORDARONE) TAB PO SCH (08:40)
[2019-06-08] MEDS ORDERED: proPOfol 200 MG/20 ML (DIPRIVAN) VIAL IV ONE (11:46)
--- NOTE | 2019-06-08 12:18 | NUR ---
BEDSIDE CARDIOVERSION DONE AT THIS TIME. DR SINGH IN ROOM, ANESTHESIA MONITORING PT. PT SHOCKED AT 200J AND CONVERTED TO SR. WILL CONTINUE TO MONITOR PT.
--- NOTE | 2019-06-08 12:34 | Anesthesia-Procedure Note ---
Procedures/Interventions Procedure Start/Stop/Diagnosis Date of Procedure: Jun 08, 2019 Start Time: 12:15 Referring Physician: Dr Harris Preprocedural Diagnosis: A-Fib with RVR Brief History Anesthesia Note ([id number]) Called to ICU for sedation for a cardioversion. Brief history obtained from patient and Dr Harris, NPO status verified. Propofol 60 mg IV given for sedation and pt returned to sinus rhythm after cardioversion times one. Pt maintained spontaneous ventilation throughout and tolerated the procedure well. Her VS were stable throughout. Stop Time: 12:20 Postprocedural Diagnosis: sinus rhythm ROSIO/Cardioversion Anesthesia Type: MAC ASA Class: 3 Medications Propofol 60 mg IV Monitors and Equipment: BP Cuff - Right, Continuous EKG, End Tidal CO2, IV, Pulse Oximeter, V Lead EKG JEFERSON MIRANDA DO Jun 08, 2019 12:34
--- NOTE | 2019-06-08 12:34 | Anesthesia-General Post-Op ---
MAC Patient Condition Mental Status/LOC: Same as Preop Cardiovascular: Satisfactory Nausea/Vomiting: Absent Respiratory: Satisfactory Pain: Controlled Complications: Absent Post Op Complications Complications None Follow Up Care/Instructions Patient Instructions None needed. Anesthesiology Discharge Order Discharge Order Patient is doing well, no complaints, stable vital signs, no apparent adverse anesthesia problems. JEFERSON MIRANDA DO Jun 08, 2019 12:34
[2019-06-08] MEDS ORDERED: DILT360C26 PO (13:20)
--- NOTE | 2019-06-08 13:34 | Cardiology Progress Note ---
Cardiology SOAP Progress Note Subjective: Palpitations Objective: I&O/Vital Signs 06/08/19 06/08/19 06/08/19 06/08/19 02:00 03:00 04:00 04:00 Temp 97.8 Pulse 81 79 81 Resp 17 18 15 B/P (MAP) 124/85 (98) 133/90 (104) 133/93 (106) Pulse Ox 97 O2 Delivery Room Air Room Air Room Air 06/08/19 06/08/19 06/08/19 06/08/19 04:00 05:00 06:00 07:00 Pulse 80 80 85 Resp 19 17 19 B/P (MAP) 153/109 (124) 162/106 (124) 130/97 (108) O2 Delivery Room Air Room Air Room Air Room Air 06/08/19 06/08/19 06/08/19 06/08/19 07:00 08:00 08:00 08:19 Temp 97.2 Pulse 84 84 Resp 15 B/P (MAP) 136/96 (109) O2 Delivery Room Air Room Air 06/08/19 06/08/19 06/08/19 06/08/19 09:00 10:00 11:00 12:00 Pulse 93 86 86 86 Resp 16 20 13 19 B/P (MAP) 129/104 (112) 128/94 (105) 100/89 (93) O2 Delivery Room Air Room Air Room Air Room Air 06/08/19 06/08/19 06/08/19 06/08/19 12:00 12:00 12:38 13:00 Temp 97.9 Pulse 85 60 Resp 20 B/P (MAP) 136/92 (107) Pulse Ox 99 O2 Delivery Room Air Room Air 06/08/19 00:00 Intake Total 1900 ml Output Total 1400 ml Balance 500 ml Weight (Pounds): 160 Weight (Ounces): 0.0 Weight (Calculated Kilograms): 72.355628 Constitutional: appears stated age, AAO x 3; No apparent distress; well- developed, well-nourished Respiratory: No accessory muscle use, No respiratory distress, No chest tender, No chest expansion is symmetric; chest is bilaterally symmetric; No lungs clear to percussion; lungs clear to auscultation; No crackles, No rhonchi, No rales, No stridor, No wheezing, No pleural rub, No other Cardiovascular: irregularly irregular, tachycardia, S1 and S2 Gastrointestional: No tender, No soft, No round, No distended, No pulsatile mass, No organomegaly, No guarding, No rebound, No tenderness, No hernia, No mass, No audible bowel sounds, No abnormal bowel sounds, No abdominal bruits, No spleenomegaly, No other Extremities: No normal range of motion, No non-tender, No normal inspection, No pedal edema, No calf tenderness, No normal capillary refill, No pelvis stable, No calf tenderness, No inflammation, No pedal edema, No slow capillary refill, No swelling, No other, No abrasion, No clubbing, No cyanosis, No ecchymosis, No laceration, No no lower extremity edema bilateral, No significant edema, No tenderness, No wound Neurologic/Psychiatric: no motor/sensory deficits, alert, normal mood/affect, oriented x 3, power is 5/5 both on sides Skin: No normal color, No warm/dry, No cyanosis, No cool, No diaphoresis, No damp, No ecchymosis, No jaundice, No mottled, No pallor, No rash, No tattoos/piercings, No ulcerations, No rash on exposed areas, No ulcerations on exposed areas, No other Results/Procedures: Labs Laboratory Tests 06/08/19 03:10: White Blood Count 4.5, Red Blood Count 3.50L, Hemoglobin 9.7L, Hematocrit 31L, Mean Corpuscular Volume 87, Mean Corpuscular Hemoglobin 28, Mean Corpuscular Hemoglobin Concent 32, Red Cell Distribution Width 14.9H, Platelet Count 307, Mean Platelet Volume 10.3, Neutrophils (%) (Auto) 58, Lymphocytes (%) (Auto) 29, Monocytes (%) (Auto) 11, Eosinophils (%) (Auto) 3, Basophils (%) (Auto) 0, Neutrophils # (Auto) 2.6, Lymphocytes # (Auto) 1.3, Monocytes # (Auto) 0.5, Eosinophils # (Auto) 0.1, Basophils # (Auto) 0.0, Sodium Level 140, Potassium Level 3.2L, Chloride Level 111H, Carbon Dioxide Level 20L, Anion Gap 9, Blood Urea Nitrogen 12, Creatinine 0.80, Estimat Glomerular Filtration Rate > 60, BUN/Creatinine Ratio 15, Glucose Level 86, Calcium Level 9.1, Phosphorus Level 3.7, Magnesium Level 1.7L, Free Thyroxine 0.94 Microbiology 06/05/19 MRSA Screen - Final, Complete MRSA not isolated A/P: Assessment/Dx: Atrial fibrillation with rapid ventricular rate, Type II myocardial infarction (very likely). Continue checking the trend. If significant increase, may consider coronary angiography. Nonobstructive coronary artery disease per cardiac catheterization done on October 30, 2015. Continue to monitor [id number] score is 3, yearly risk of stroke without oral anticoagulation is 3.2 percent which is considered high risk for stroke, maintained on Eliquis. Nonsustained ventricular tachycardia, multiple episodes of wide-complex tachycardia appeared to be nonsustained, patient was on flecainide at that time, cardiac catheterization was done in October 2015 and it was normal. No recurrence since discontinuation of flecainide. Continue to monitor Hypertension, borderline hypotensive at this time. Continue to monitor blood pressure Hyperlipidemia, continue to monitor lipids History of intolerance to amiodarone secondary to elevated LFTs, restarting amiodarone and monitoring liver function tests closely Gastroesophageal reflux disease-continue current medication. Mild bilateral carotid stenosis, last ultrasound was done in May 2017, continue to monitor Hyperthyroidism, followed and manged by Dr Vanessa in [place] Plan: Cardizem infusion held overnight due to hypotension. Was on Cardizem CD 120 mg by mouth. Will increase the dose to 240 mg. Continue amiodarone and oral anticoagulation. 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 Continue Cardizem 360 mg daily. Cardioversion today. we will consider cardioversion since the patient has been on uninterrupted oral anticoagulation for at least the last one month. If the patient continues to have atrial fibrillation with rapid ventricular episodes, and if the patient is not a candidate for repeat atrial fibrillation ablation, the other option is permanent pacemaker and AV node ablation. I discussed with the patient briefly. Borderline positive troponin. Likely type II myocardial infarction. However we will do serial troponin and if any significant increase, we will consider coronary angiography. Thank you for your consultation. Please call me if you have any questions. Alyce Singh MD, FACP, FACC, FSCAI, FHRS, CCDS Interventional Cardiology Cardiac Electrophysiology Vascular Medicine and Endovascular Interventions Heron SINGH MD Jun 08, 2019 13:34
--- NOTE | 2019-06-08 13:35 | Cardioversion ---
Cardioversion PROCEDURE PHYSICIAN: Alyce Harris MD DATE OF PROCEDURE: 06/08/19 DIRECT EXTERNAL ELECTRICAL CARDIOVERSION: Indications: Atrial Fibrillation with rapid ventricular rate Preoperative diagnoses: Atrial Fibrillation with rapid ventricular rate Postoperative diagnosis: Sinus rhythm, Successful Electrical Cardioversion History: History of atrial fibrillation with RVR. 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 Anesthesia: By Anesthesia services Complications: None Specimen: None Contrast: 0 Flouroscopy: none Procedure Details: The patient was brought the cath lab tech after informed consent was taken, all the risks and complications were explained including the risk of stroke. Electrical cardioversion was carried out with anesthesia support with propofol. 200 joules of synchronized shock was delivered through external patches which promptly restored sinus rhythm. The patient tolerated the procedure well. Conclusions: 1.Successful Cardioversion. 2.Continue oral anticoagulation and rate controlling agent. 3.Follow up with Dr Price and Dr Coulter. Alyce Harris MD, [facility], CCDS Cardiac Electrophysiology Heron HARRIS MD Jun 08, 2019 13:34
[2019-06-08] MEDS ORDERED: DILTIAZEM 120 MG (CARDIZEM CD) CAP PO ONE (14:28)
[2019-06-08] MEDS ORDERED: DILTIAZEM 120 MG (CARDIZEM CD) CAP PO SCH (14:45)
== END 2019-06-08 15:15 | disposition home or self-care (01) | DRG 282 ==
LOC: EDUNIT# 13:20 → ER 13:22 → ICU 15:51
PROVIDERS: ADMIT Family Medicine; ATTEND Family Medicine
PROC: 5A2204Z Restoration of Cardiac Rhythm, Single (ICD-10-PCS; principal; 2019-06-08)
DX: I48.0 Paroxysmal atrial fibrillation (principal); I48.92 Unspecified atrial flutter; I21.A1 Myocardial infarction type 2; I10 Essential (primary) hypertension; F41.9 Anxiety disorder, unspecified; D64.9 Anemia, unspecified; E83.42 Hypomagnesemia; E87.6 Hypokalemia; K21.9 Gastro-esophageal reflux disease without esophagitis; M19.91 Primary osteoarthritis, unspecified site; M54.9 Dorsalgia, unspecified; F32.9 Major depressive disorder, single episode, unspecified; I25.10 Atherosclerotic heart disease of native coronary artery without angina pectoris; I95.9 Hypotension, unspecified; E78.5 Hyperlipidemia, unspecified; E05.90 Thyrotoxicosis, unspecified without thyrotoxic crisis or storm; I65.23 Occlusion and stenosis of bilateral carotid arteries; Z79.01 Long term (current) use of anticoagulants; Z96.653 Presence of artificial knee joint, bilateral; Z88.1 Allergy status to other antibiotic agents; Z88.2 Allergy status to sulfonamides; Z88.0 Allergy status to penicillin
CPT/HCPCS: 36415; 71045; 80048; 80053; 81000; 82533; 83735; 84100; 84439; 84443; 84481; 84484; 85025; 86141; 87081; 93005; 93041; 96361; 96365; 96375

== ENCOUNTER 2019-08-01 14:11 | Emergency (ER) | payer MEDICARE, OTHER ==
[~2019-08-01] VITALS: Ht 162.5 cm; Wt 68.0 kg
[~2019-08-01 14:11] MED LIST changes: +ATOR20TA66 PO; +DILT240C PO; +DILT360C26 PO; +MAGN250T35 PO; +MONT10TA24 PO; +SERT50TA9 PO
--- NOTE | 2019-08-01 14:19 | NUR ---
NOTIFIED OF BUSY ER WITH X2 AMBULANCES IN ROUTE. ALSO NOTIFIED TO LET THE VP CARDIOVASCULAR KNOW IF SHE HAS ANY CHANGES.
[2019-08-01] MEDS ORDERED: MECLIZINE 25 MG (ANTIVERT) TAB PO ONE (14:45)
--- NOTE | 2019-08-01 14:58 | NUR ---
REPORTS THAT DIZZINESS IS WORSE WITH MOVEMENT
--- NOTE | 2019-08-01 14:58 | NUR ---
AMB TO ROOM NO CHANGE FROM TRIAGE.
--- NOTE | 2019-08-01 15:11 | ED General ---
General Chief Complaint: Dizziness/Syncope Stated Complaint: DIZZY X 5-6 DAYS Nursing Triage Note: ARRIVED VIA AMB TO TRIAGE WITH DIZZINESS SINCE FRIDAY. SEEN DR PRICE ON FRIDAY AND TAKEN OFF A MEDICATION AND WAS TOLD HER THYROID WAS HIGH BUT IS STILL HAVING THE DIZZINESS. Nursing Sepsis Screen: No Definite Risk Source of Information: Patient Exam Limitations: No Limitations History of Present Illness Date Seen by Provider: Aug 01, 2019 Time Seen by Provider: 15:09 Initial Comments ER with reports of dizziness since Friday. She saw Dr. Price at this time and was taken off of her amiodarone because of thyroid dysfunction related to the amiodarone use. She is still having dizziness. No other symptoms. She takes amiodarone for A. fib/flutter. Timing/Duration: 1-2 Days Severity: Moderate Associated Systoms: Weakness Allergies and Home Medications Allergies Coded Allergies: Sulfa (Sulfonamide Antibiotics) (Verified Allergy, Severe, HIVES, 11/14/17) Tetracyclines (Verified Allergy, Unknown, HIVES, 06/21/18) amoxicillin (Verified Allergy, Unknown, hives, 11/09/16) clavulanic acid (Verified Allergy, Unknown, hives, 11/09/16) penicillin G (Verified Allergy, Unknown, HIVES, 06/21/18) Home Medications Acetaminophen/Diphenhydramine 1 Each Tablet, 1 TAB PO HS, (Reported) Alprazolam 1 Mg Tablet, 1 MG PO BID, (Reported) Amiodarone HCl 200 Mg Tablet, 200 MG PO DAILY, (Reported) Apixaban 5 Mg Tablet, 5 MG PO BID, (Reported) Atorvastatin Calcium 20 Mg Tablet, 20 MG PO DAILY, (Reported) Buspirone HCl 10 Mg Tablet, 10 MG PO BID, (Reported) Diltiazem HCl 360 Mg Cap.er.24h, 360 MG PO DAILY Prescribed by: FEROZ HUBBARD on 06/08/19 1320 Enalapril Maleate 20 Mg Tablet, 20 MG PO DAILY, (Reported) LAST FILLED #30 11-11-18 Fenofibrate,Micronized 200 Mg Capsule, 200 MG PO DAILY, (Reported) Levocetirizine Dihydrochloride 5 Mg Tablet, 5 MG PO DAILY, (Reported) Magnesium Oxide 250 Mg Tablet, 250 MG PO HS, (Reported) Meclizine HCl 25 Mg Tablet, 25 MG PO TID PRN for DIZZINESS Prescribed by: VIKRAM MARTÍNEZ on 08/01/19 1710 Montelukast Sodium 10 Mg Tablet, 10 MG PO HS, (Reported) [place]-3S/Dha/Epa/Fish Oil 1 Each Capsule.dr, 1,000 MG PO BID, (Reported) Omeprazole 40 Mg Capsule.dr, 40 MG PO DAILY, (Reported) Raloxifene HCl 60 Mg Tablet, 60 MG PO DAILY, (Reported) Sertraline HCl 50 Mg Tablet, 50 MG PO DAILY, (Reported) Patient Home Medication List Home Medication List Reviewed: Yes (I think it is hearing) Review of Systems Review of Systems Constitutional: see HPI, dizziness EENTM: see HPI Respiratory: no symptoms reported Cardiovascular: no symptoms reported; No chest pain, No palpitations, No syncope, No vascular heart diseas Genitourinary: no symptoms reported Musculoskeletal: no symptoms reported Skin: no symptoms reported Psychiatric/Neurological: No Symptoms Reported Hematologic/Lymphatic: No Symptoms Reported Past [facility]-Fjoegx Hx Patient Social History Alcohol Use: Occasionally Uses Alcohol Beverage of Choice: Wine Recreational Drug Use: No Smoking Status: Never a Smoker 2nd Hand Smoke Exposure: No Recent Foreign Travel: No Contact w/Someone Who Travel: No Recent Infectious Disease Expo: No Recent Hopitalizations: No Immunizations Up To Date Tetanus Booster (TDap): Unknown PED Vaccines UTD: No Date of Pneumonia Vaccine: Sep 22, 2015 Date of Influenza Vaccine: Sep 01, 2017 Seasonal Allergies Seasonal Allergies: No Past Medical History Surgeries: Yes (bilat knee, CARDIAC ABLATION) Appendectomy, Cardiac, Joint Replacement, Orthopedic Respiratory: No Cardiac: Yes (PACEMAKER) Atrial Fibrillation, High Cholesterol, Hypertension, Irregular Heartbeat Neurological: No Reproductive Disorders: No Sexually Transmitted Disease: No Genitourinary: No Gastrointestinal: Yes Gastroesophageal Reflux Musculoskeletal: Yes (BACK SURGERY 2008-MILD PAIN-6 SCREWS AND 2 RODS) Arthritis, Chronic Back Pain Endocrine: No HEENT: No Cancer: No Psychosocial: Yes Anxiety, Depression Integumentary: No Blood Disorders: No Adverse Reaction/Blood Tranf: No Family Medical History Cardiovascular disease 19 FATHER (mi) Dementia 19 MOTHER Heart Disease Physical Exam Vital Signs Vital Signs - First Documented 08/01/19 14:17 Temp 36.7 Pulse 86 Resp 16 B/P (MAP) 105/95 (98) Pulse Ox 97 O2 Delivery Room Air Capillary Refill : Less Than 3 Seconds Height, Weight, BMI Height: 5'4.00" Weight: 160lbs. 0.0oz. 72.354883an; 166.00 BMI Method:Stated General Appearance: No Apparent Distress, WD/WN Eyes: Bilateral Eye Normal Inspection, Bilateral Eye PERRL (From cocaine), Bilateral Eye EOMI HEENT: PERRL/EOMI, TMs Normal, Other (no nystagmus) Neck: Full Range of Motion, Normal Inspection Respiratory: No Accessory Muscle Use, No Respiratory Distress Cardiovascular: Regular Rate, Rhythm, Normal Peripheral Pulses Gastrointestinal: Normal Bowel Sounds, Non Tender, Soft Extremity: Normal Capillary Refill, Normal Inspection Neurologic/Psychiatric: Alert, Oriented x3 Skin: Normal Color, Warm/Dry Progress/Results/Core Measures Suspected Sepsis Recent Fever Within 48 Hours: No Infection Criteria Present: None New/Unexplained Altered Menta: No Sepsis Screen: No Definite Risk SIRS Temperature: Pulse: 86 Respiratory Rate: 16 Laboratory Tests 08/01/19 15:07: White Blood Count 5.3 Blood Pressure 105 /95 Mean: 98 Laboratory Tests 08/01/19 15:07: Creatinine 1.21, Platelet Count 315, Total Bilirubin 0.3 Results/Orders Lab Results Laboratory Tests Test 08/01/19 15:07 08/01/19 15:17 Range/Units White Blood Count 5.3 4.3-11.0 10^3/uL Red Blood Count 3.68 L 4.35-5.85 10^6/uL Hemoglobin 10.4 L 11.5-16.0 G/DL Hematocrit 32 L 35-52 % Mean Corpuscular Volume 87 80-99 FL Mean Corpuscular Hemoglobin 28 25-34 PG Mean Corpuscular Hemoglobin Concent 33 32-36 G/DL Red Cell Distribution Width 14.5 10.0-14.5 % Platelet Count 315 130-400 10^3/uL Mean Platelet Volume 10.3 7.4-10.4 FL Neutrophils (%) (Auto) 58 42-75 % Lymphocytes (%) (Auto) 30 12-44 % Monocytes (%) (Auto) 8 0-12 % Eosinophils (%) (Auto) 2 0-10 % Basophils (%) (Auto) 1 0-10 % Neutrophils # (Auto) 3.1 1.8-7.8 X 10^3 Lymphocytes # (Auto) 1.6 1.0-4.0 X 10^3 Monocytes # (Auto) 0.4 0.0-1.0 X 10^3 Eosinophils # (Auto) 0.1 0.0-0.3 10^3/uL Basophils # (Auto) 0.0 0.0-0.1 10^3/uL Sodium Level 140 135-145 MMOL/L Potassium Level 3.8 3.6-5.0 MMOL/L Chloride Level 107 98-107 MMOL/L Carbon Dioxide Level 21 21-32 MMOL/L Anion Gap 12 5-14 MMOL/L Blood Urea Nitrogen 29 H 7-18 MG/DL Creatinine 1.21 0.60-1.30 MG/DL Estimat Glomerular Filtration Rate 44 BUN/Creatinine Ratio 24 Glucose Level 105 70-105 MG/DL Calcium Level 9.6 8.5-10.1 MG/DL Corrected Calcium 9.4 8.5-10.1 MG/DL Total Bilirubin 0.3 0.1-1.0 MG/DL Aspartate Amino Transf (AST/SGOT) 37 H 5-34 U/L Alanine Aminotransferase (ALT/SGPT) 25 0-55 U/L Alkaline Phosphatase 60 40-136 U/L Total Protein 7.7 6.4-8.2 GM/DL Albumin 4.2 3.2-4.5 GM/DL Thyroid Stimulating Hormone (TSH) 5.68 H 0.35-4.94 UIU/ML Free Thyroxine 1.00 0.70-1.48 NG/DL Urine Color YELLOW Urine Clarity CLEAR Urine pH 6.5 5-9 Urine Specific [place] 1.015 L 1.016-1.022 Urine Protein 1+ H NEGATIVE Urine Glucose (UA) NEGATIVE NEGATIVE Urine Ketones NEGATIVE NEGATIVE Urine Nitrite NEGATIVE NEGATIVE Urine Bilirubin NEGATIVE NEGATIVE Urine Urobilinogen NORMAL NORMAL MG/DL Urine Leukocyte Esterase 1+ H NEGATIVE Urine RBC (Auto) NEGATIVE NEGATIVE Urine RBC NONE /HPF Urine WBC 5-10 H /HPF Urine Squamous Epithelial Cells RARE /HPF Urine Crystals NONE /LPF Urine Bacteria TRACE /HPF Urine Casts PRESENT /LPF Urine Hyaline Casts 25-50 H /LPF Urine Mucus SMALL H /LPF Urine Culture Indicated YES My Orders Orders - VIKRAM MARTÍNEZ PROFESSOR OF HISTORICAL THEOLOGY Cbc With Automated Diff (08/01/19 14:33) Comprehensive Metabolic Panel (08/01/19 14:33) Ua Culture If Indicated (08/01/19 14:33) Thyroid Stimulating Hormone (08/01/19 14:33) Free T4 (Free Thyroxine) (08/01/19 14:33) Ed Iv/Invasive Line Start (08/01/19 14:33) Meclizine Tablet (Antivert Tablet) (08/01/19 14:45) Ct Angio Head/Neck (08/01/19 15:04) Urine Culture (08/01/19 15:17) Ns Iv 1000 Ml (Sodium Chloride 0.9%) (08/01/19 15:45) Iohexol Injection (Omnipaque 350 Mg/Ml 1 (08/01/19 16:30) Received Contrast (Hold Metformin- Contr (08/01/19 16:30) Sodium Chloride Flush (Catheter Flush Sy (08/01/19 16:30) Ns (Ivpb) (Sodium Chloride 0.9% Ivpb Bag (08/01/19 16:30) Medications Given in ED Current Medications Medications Dose Ordered Sig/Rachel Route Start Time Stop Time Status Last Admin Dose Admin Iohexol 100 ml ONCE ONCE IV 08/01/19 16:30 08/01/19 16:31 DC 08/01/19 16:28 75 ML Meclizine HCl 25 mg ONCE ONCE PO 08/01/19 14:45 08/01/19 14:46 DC 08/01/19 15:12 25 MG Sodium Chloride 10 ml NEEDED PRN IV 08/01/19 16:30 08/01/19 16:28 10 ML Sodium Chloride 100 ml ONCE ONCE IV 08/01/19 16:30 08/01/19 16:31 DC 08/01/19 16:28 80 ML Vital Signs/I&O 08/01/19 14:17 Temp 36.7 Pulse 86 Resp 16 B/P (MAP) 105/95 (98) Pulse Ox 97 O2 Delivery Room Air Capillary Refill : Less Than 3 Seconds Blood Pressure Mean: 98 Diagnostic Imaging Diagonstic Imaging: CT Comments 1705-discussed the case with stroke neurologist Dr. Ramos at . The patient is already on Eliquis for atrial fibrillation. She is 5 days into this episode of dizziness, he recommends no new treatment, continue current medications and follow up outpatient. Departure Communication (Admissions) CT angiogram head and neck shows non-opacification of the majority of the left vertebral artery. However on the prior neck CT from May 2018 it was quite diminutive at that time. May or may not be responsible for her symptoms today. Will discharge to home, follow up outpatient. 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 Decision time for Depature: 17:09 Referrals: VALENCIA DUNN DO (PCP/Family) Primary Care Physician Patient Instructions: Vertigo (a Type of Dizziness) (DC) Add. Discharge Instructions: 1. Follow-up with Dr. Price and Dr. Dunn this week. All discharge instructions reviewed with patient and/or family. Voiced understanding. Scripts Meclizine HCl (Meclizine HCl) 25 Mg Tablet 25 MG PO TID PRN for DIZZINESS, #30 TAB Prov: VIKRAM MARTÍNEZ APRN 08/01/19 Copy Copies To 1: RENÉ PRICE MD; VALENCIA DUNN PETER J APRN Aug 01, 2019 15:11
[2019-08-01 15:14] LABS: BASOPHILS % (AUTO) 1 % (0-10); EOSINOPHILS # (AUTO) 0.1 10^3/uL (0.0-0.3); EOSINOPHILS % (AUTO) 2 % (0-10); HEMATOCRIT 32 % (35-52); HEMOGLOBIN 10.4 G/DL (11.5-16.0); LYMPHOCYTES # (AUTO) 1.6 X 10^3 (1.0-4.0); LYMPHOCYTES % (AUTO) 30 % (12-44); MEAN CORPUSCULAR HEMOGLOBIN 28 PG (25-34); MEAN CORPUSCULAR HGB CONC 33 G/DL (32-36); MEAN CORPUSCULAR VOLUME 87 FL (80-99); MEAN PLATELET VOLUME 10.3 FL (7.4-10.4); MONOCYTES # (AUTO) 0.4 X 10^3 (0.0-1.0); MONOCYTES % (AUTO) 8 % (0-12); NEUTROPHILS # (AUTO) 3.1 X 10^3 (1.8-7.8); NEUTROPHILS % (AUTO) 58 % (42-75); PLATELET COUNT 315 10^3/uL (130-400); RED CELL DISTRIBUTION WIDTH 14.5 % (10.0-14.5); WHITE BLOOD COUNT 5.3 10^3/uL (4.3-11.0)
[2019-08-01 15:26] LABS: BILIRUBIN,URINE NEGATIVE (NEGATIVE); CLARITY,URINE CLEAR; COLOR,URINE YELLOW; GLUCOSE, URINE (UA) NEGATIVE (NEGATIVE); KETONES,URINE NEGATIVE (NEGATIVE); LEUKOCYTE ESTERASE ,URINE 1+ (NEGATIVE); NITRITE,URINE NEGATIVE (NEGATIVE); PH,URINE 6.5 (5-9); PROTEIN,URINE 1+ (NEGATIVE); UROBILINOGEN,URINE NORMAL (NORMAL)
[2019-08-01 15:33] LABS: BACTERIA,URINE TRACE /HPF; HYALINE CASTS, URINE 25-50 /LPF; SQUAMOUS EPITHELIAL CELL,UR RARE /HPF
[2019-08-01 15:38] LABS: ALBUMIN 4.2 GM/DL (3.2-4.5); BILIRUBIN,TOTAL 0.3 MG/DL (0.1-1.0); CALCIUM 9.6 MG/DL (8.5-10.1); CREATININE SERUM 1.21 MG/DL (0.60-1.30); POTASSIUM 3.8 MMOL/L (3.6-5.0); TOTAL PROTEIN 7.7 GM/DL (6.4-8.2)
[2019-08-01] MEDS ORDERED: NS IV 1000 ML 1,000 ML IV SCH (15:45)
[2019-08-01] MEDS ORDERED: HOLD METFORMIN - RECEIVED CONTRAST 20 ML VIAL IV SCH (16:30)
[2019-08-01] MEDS ORDERED: IOHEXOL 350 MG/ML 100 ML (OMNIPAQUE 350) VIAL IV ONE (16:30)
[2019-08-01] MEDS ORDERED: NS 100 ML (IVPB) BAG IV ONE (16:30)
[2019-08-01] MEDS ORDERED: CATHETER FLUSH 10 ML SYR IV PRN (16:30)
--- NOTE | 2019-08-01 16:56 | Diagnostic Imaging Report ---
PROCEDURE: CT angiography of the head and CT angiography of the neck with and without contrast. TECHNIQUE: Contiguous noncontrast images were obtained from the skull base through the vertex. After intravenous contrast administration, helical CT angiography of the neck was performed. Source data was reformatted into 3D MIP projections. Delayed post contrast acquisition was also obtained. Auto Exposure Controls were utilized during the CT exam to meet ALARA standards for radiation dose reduction. INDICATION: Dizziness. Findings: Comparison is neck CT dated 06/04/2018. The left vertebral artery is extremely diminutive at its origin and loses opacification shortly thereafter with reconstitution after it enters the posterior fossa. The middle cerebral arteries and posterior cerebral arteries are normal. The anterior cerebral arteries are normal. There is mild calcification of the left carotid bifurcation. No stenosis is present bifurcations on either side. Carotid artery origins are normal. Left subclavian artery is normal. There is no lymphadenopathy in the neck. Superior thorax is normal. No osseous lesions are seen. Vera-white matter differentiation is normal. No intracranial hemorrhage is seen. Orbits are normal. No intra-or extra-axial fluid collections. No osseous lesions or fractures are seen. Impression: 1. Nonopacification of the majority of the left vertebral artery. On the prior neck CT it was quite diminutive, but now appears to have no opacification until it enters the posterior fossa. Critical findings communicated to Dr. Stern by Dr. East at 1073 on 08/01/2019. Dictated by: Dictated on workstation # [id number]
[2019-08-01] MEDS ORDERED: MECL-106 PO (17:10)
[2019-08-01 17:27] VITALS: BP 115/89
== END 2019-08-01 17:27 | disposition home or self-care (01) ==
LOC: EDUNIT# 14:11 → ER 14:12
DX: R42 Dizziness and giddiness (principal); I65.02 Occlusion and stenosis of left vertebral artery; I48.91 Unspecified atrial fibrillation; E78.00 Pure hypercholesterolemia, unspecified; I10 Essential (primary) hypertension; K21.9 Gastro-esophageal reflux disease without esophagitis; F41.9 Anxiety disorder, unspecified; F32.9 Major depressive disorder, single episode, unspecified; Z88.2 Allergy status to sulfonamides; Z88.1 Allergy status to other antibiotic agents; Z88.0 Allergy status to penicillin; Z90.49 Acquired absence of other specified parts of digestive tract; Z96.653 Presence of artificial knee joint, bilateral; Z95.0 Presence of cardiac pacemaker; Z82.49 Family history of ischemic heart disease and other diseases of the circulatory system
CPT/HCPCS: 36415; 70496; 70498; 80053; 81000; 84439; 84443; 85025; 87088; 96360

== ENCOUNTER 2019-08-23 06:05 | Outpatient (CLI) | payer MEDICARE, OTHER ==
[~2019-08-23] VITALS: Ht 162.6 cm; Wt 68.2 kg
[~2019-08-23 06:05] MED LIST changes: +MECL-106 PO
[2019-08-23] MEDS ORDERED: METO-333 PO (11:07)
== END 2019-08-23 11:32 | disposition home or self-care (01) ==
LOC: PREOP 06:05
PROVIDERS: ATTEND Surgery
DX: Z01.818 Encounter for other preprocedural examination (principal)

== ENCOUNTER → 2019-09-14 | Outpatient (CLI) | payer MEDICARE, OTHER ==
[~2019-09-14] MED LIST changes: -ACET-2469 PO; +ACET-2715 PO; +CARV6.252 PO; +CRV25T PO; -DILT240C PO; +DILT240C91 PO; +FURO-125 PO; +FURO20TA4 PO; +FURO40TA4 PO; +LISI10TA2 PO; +METO-333 PO; -METO-370 PO; +METO50TA7 PO; +OMEP40CA27 PO; -OMEP40CA36 PO; +POTA20TA8 PO; +RALO60TA PO; -TRAM50TA2; +TRM50T; +TRM50T PO
== END ==
LOC: CARD 11:31
PROVIDERS: ATTEND Physician Assistant
DX: I08.1 Rheumatic disorders of both mitral and tricuspid valves (principal); I25.10 Atherosclerotic heart disease of native coronary artery without angina pectoris; I10 Essential (primary) hypertension; E78.2 Mixed hyperlipidemia; I48.0 Paroxysmal atrial fibrillation
CPT/HCPCS: 93306

== ENCOUNTER 2019-09-15 13:44 | Outpatient (RCR) | payer MEDICARE, OTHER ==
[~2019-09-15 13:44] MED LIST changes: +ACET-2469 PO; -ACET-2715 PO; -CARV6.252 PO; -CRV25T PO; +DILT240C PO; -DILT240C91 PO; -FURO-125 PO; -FURO20TA4 PO; -FURO40TA4 PO; -LISI10TA2 PO; +METO-370 PO; -METO50TA7 PO; -OMEP40CA27 PO; +OMEP40CA36 PO; -POTA20TA8 PO; -RALO60TA PO; +TRAM50TA2; -TRM50T; -TRM50T PO
[2019-09-23] MEDS ORDERED: LISI10TA2 PO (13:35)
[2019-09-23] MEDS ORDERED: POTA99TA21 PO (13:45)
[2019-09-24] MEDS ORDERED: FURO-125 PO (09:09)
== END 2019-10-06 | disposition home or self-care (01) ==
LOC: CR3 13:44
PROVIDERS: ATTEND Internal Medicine Cardiovascular Disease
DX: Z29.8 Encounter for other specified prophylactic measures (principal)

== ENCOUNTER → 2019-09-22 | Outpatient (CLI) | payer MEDICARE, OTHER ==
[~2019-09-22] VITALS: Ht 163 cm; Wt 71.0 kg
[~2019-09-22] MED LIST changes: +FURO-125 PO; +LISI10TA2 PO; +REGADENOSON 0.4 MG/5 ML SYR (LEXISCAN) IV ONE
[2019-09-22] MEDS: CATHETER FLUSH 10 ML SYR IV PRN (08:22)
[2019-09-22 09:40] VITALS: BP 151/103
[2019-09-22] MEDS: REGADENOSON 0.4 MG/5 ML SYR (LEXISCAN) IV ONE (09:43)
[2019-09-22 09:47] VITALS: BP 154/101
--- NOTE | 2019-09-22 14:10 | STRESS TEST ---
DATE OF SERVICE: 09/22/2019 LEXISCAN MYOVIEW STRESS TEST REPORT REFERRING PHYSICIAN: Dr. Sung Dunn. Baseline heart rate is 85, baseline blood pressure 151/103. Baseline EKG is ventricular paced rhythm. In summary, the patient was injected with 11.0 mCi of technetium-99 Myoview and the resting images were obtained. Then, the patient received 0.4 mg of Lexiscan followed by 31.5 mCi of technetium-99 Myoview. Throughout the test, there were no EKG changes. The resting and stress images were reviewed and compared in the short axis, horizontal long axis, and vertical long axis views. Review of the images showed decreased uptake involving the mid to apical anterior wall, anterior septum and true apex with mild reversibility. SSS is 17 SDS 5, TID value 1.07. On the gated images, the left ventricle is dilated with end diastolic volume 108 and systolic volume 61, hypokinesia at the anterior wall, anterior apex, true apex and anterior septum with dyskinesia at the apex. Calculated ejection fraction 44%. CONCLUSION: 1. The patient tolerated Lexiscan well. 2. Baseline left bundle branch block with paced rhythm persisted during test. 3. Fixed defect at the anteroapical segment and true apex with mild anne-infarct is reversibility at the mid anterior wall and anteroseptum. 4. Prominent left ventricle with dyskinesia of the apex, hypokinesia at the anterior wall and anterior septum. Calculated ejection fraction 44%. Job ID: [id number] DocumentID: [id number] Dictated Date: 09/22/2019 13:43:57 Toppiece Chopper Date: 09/22/2019 14:08:58 Dictated By: RENÉ GR MD
== END ==
LOC: CARD 08:07
PROVIDERS: ATTEND Internal Medicine Cardiovascular Disease
DX: I49.3 Ventricular premature depolarization (principal); I47.2 Ventricular tachycardia; I10 Essential (primary) hypertension; E78.2 Mixed hyperlipidemia
CPT/HCPCS: 78452; 93017

== ENCOUNTER 2019-09-23 12:48 | Day surgery (SDC) | payer MEDICARE, OTHER ==
[2019-09-23] VITALS (8 sets, daily range): BP systolic 124–147; BP diastolic 73–107
[~2019-09-23] VITALS: Ht 162.6 cm; Wt 71.0 kg
[~2019-09-23 12:48] MED LIST changes: -FURO-125 PO; -LISI10TA2 PO; -REGADENOSON 0.4 MG/5 ML SYR (LEXISCAN) IV ONE
[2019-09-23] MEDS ORDERED: NS IV 1000 ML 1,000 ML ONE (13:01)
[2019-09-23] MEDS ORDERED: LIDOCAINE 1% INJ 20 ML 20 ML VIAL ONE (13:01)
[2019-09-23] MEDS ORDERED: NS IV 1000 ML 1,000 ML IV SCH (13:01)
[2019-09-23] MEDS ORDERED: HEParin (CATH LAB) 2,000 ML IV ONE (13:02)
[2019-09-23] MEDS ORDERED: LISI10TA2 PO (13:35)
[2019-09-23 13:45] LABS: HEMOGLOBIN 11.1 G/DL (11.5-16.0); MEAN PLATELET VOLUME 10.9 FL (7.4-10.4); RED CELL DISTRIBUTION WIDTH 16.7 % (10.0-14.5)
[2019-09-23] MEDS ORDERED: POTA99TA21 PO (13:45)
--- NOTE | 2019-09-23 13:46 | NUR ---
Spoke to patient she brought home medications in. Stated that she still took Buspirone and Magnesium but was out of both. Called [facility] pharmacy to make sure she was up to date picking up medications. Her Buspirone was ready to be picked up.
[2019-09-23 13:47] LABS: CLARITY,URINE CLEAR; COLOR,URINE YELLOW; GLUCOSE, URINE (UA) NEGATIVE (NEGATIVE); KETONES,URINE NEGATIVE (NEGATIVE); LEUKOCYTE ESTERASE ,URINE TRACE (NEGATIVE); NITRITE,URINE NEGATIVE (NEGATIVE); PH,URINE 7.5 (5-9); PROTEIN,URINE 1+ (NEGATIVE)
--- NOTE | 2019-09-23 13:53 | Diagnostic Imaging Report ---
PATIENT HISTORY: CHEST PAIN. TECHNIQUE: Single frontal view of the chest. COMPARISON: 06/08/2019. FINDINGS: There is blunting of the bilateral costophrenic angles, which may represent small pleural effusions or atelectasis. There has been interval placement of a left pectoral dual-chamber pacemaker. Cardiomegaly is noted with mildly prominent central pulmonary vasculature. No evidence of pneumothorax. No acute osseous abnormalities. IMPRESSION: 1. Blunting of the bilateral costophrenic angles, which may represent small pleural effusions and/or atelectasis. 2. Interval placement of a left pectoral dual-chamber pacemaker. 3. Cardiomegaly with mild central pulmonary vascular congestion. Dictated by: Dictated on workstation # [id number]
[2019-09-23] MEDS ORDERED: FLU QUADRIvalent (5+ YOA) 2019-2020 (AFLURIA) 0.5 ML IM ONE (14:00)
[2019-09-23 14:02] LABS: RBC,URINE RARE /HPF
[2019-09-23 14:03] LABS: BACTERIA,URINE TRACE /HPF; SQUAMOUS EPITHELIAL CELL,UR RARE /HPF
[2019-09-23 14:03] LABS: INR 1.2 (0.8-1.4); PROTHROMBIN TIME PATIENT 15.9 SEC (12.2-14.7)
[2019-09-23 14:04] LABS: BILIRUBIN,URINE 1+ (NEGATIVE)
[2019-09-23 14:07] LABS: ALBUMIN 4.2 GM/DL (3.2-4.5); BILIRUBIN,TOTAL 0.8 MG/DL (0.1-1.0); CALCIUM 9.3 MG/DL (8.5-10.1); CREATININE SERUM 0.93 MG/DL (0.60-1.30); POTASSIUM 3.9 MMOL/L (3.6-5.0); TOTAL PROTEIN 7.2 GM/DL (6.4-8.2)
[2019-09-23] MEDS ORDERED: fentaNYL INJECTION 100 MCG/2 ML AMP ONE (15:03)
[2019-09-23] MEDS ORDERED: MIDAZOLAM 5 MG/5 ML (VERSED) VIAL ONE (15:03)
[2019-09-23] MEDS ORDERED: meTOprolol 5 MG/5 ML (LOPRESSOR) VIAL ONE (15:43)
--- NOTE | 2019-09-23 15:51 | Cardiac Procedure Note-CS/ASA ---
Pre-Procedure Note Pre-Op Procedure Note H&P Reviewed The H&P was reviewed, patient examined and no changes noted. Date H&P Reviewed: Sep 23, 2019 Time H&P Reviewed: 15:50 Conscious Sedation Pre-Proced Time 15:50 ASA Score 3 For ASA 3 and 4: Consider anesthesia and medical clearance. Also, for patients with a history of failed moderate sedation consider anesthesia. Airway Lungs Heart ASA score ASA 1: a normal healthy patient ASA 2: a patient with a mild systemic disease (mid diabetes, controlled hypertension, obesity X ASA 3: a patient with a severe systemic disease that limits activity (angina, COPD, prior Myocardial infarction) ASA 4: a patient with an incapacitating disease that is a constant threat to life (CHF, renal failure) ASA 5: a moribund patient not expected to survive 24 hrs. (ruptured aneurysm) ASA 6: a declared brain- patient whose organs are being harvested. For emergent operations, add the letter E after the classification Mallampati Classification Grade 3 Sedation Plan Analgesia, Amnesia, Plan communicated to team members, Discussed options with patient/fam, Discussed risks with patient/fam The patient is an appropriate candidate to undergo the planned procedure, sedation, and anesthesia. The patient immediately re-assessed prior to indication. RENÉ GR MD Sep 23, 2019 15:50 POS
[2019-09-23] MEDS ORDERED: PATIENT MAY USE OWN MEDS, ALL PO SCH (16:00)
--- NOTE | 2019-09-23 16:00 | Cardiac Cath Report ---
Cardiac Cath Report Physician (s)/Panel Installer (s) Physician RENÉ GR MD Pre-Procedure Diagnosis Pre-Procedure Diagnosis: CHF Post-Procedure Note Procedure Start Date: Sep 23, 2019 Name of Procedure: [facility] Findings/Procedure Note PROCEDURE NOTE: 74-year-old lady with history of paroxysmal atrial fibrillation underwent ablat ion with pacemaker placement, has been having increasing shortness of breath, significant deterioration in the left ventricular function, had an abnormal stress test, scheduled for cardiac catheterization possible PTCA. After explaining the procedure to the patient, all pros and cons were explained, all questions were answered. The patient signed the consent and then she was placed on the cardiac catheterization laboratory. Groin was prepped SL fashion local anesthesia was used. Sheath placed in the right femoral artery. Crystal right and left catheter were used to access the coronary system. Pigtail was used to access the left ventricular cavity. Left ventriculogram was done At the end of the procedure the sheath was removed. Closure device was used FINDINGS: Hemodynamics LV 151/22 and diastolic pressure of 22 Aorta 153/102 mean of 125 ANATOMY: Left Main is free of obstructive disease Left Anterior Descending has mild disease nonobstructive disease Left Circumflex has mild disease nonobstructive disease Right Coronory Artery has mild disease nonobstructive disease LV Gram is dilated with diffuse left ventricular hypokinesia estimated ejection fraction 30 percent CONCLUSION: 1. Severe nonischemic cardiomyopathy with ejection fraction 30 percent 2. Mild coronary artery disease nonobstructive disease DISCUSSION AND RECOMMENDATION: I will start on Lasix, continue to monitor tolerance and response, restart home medication. Anesthesia Type: Conscious Sedation Estimated blood loss (mL): 15 ml Contrast Amount: 50 ml Total Radiation Dose: 227 mGy Post-Procedure Diagnosis Post-operative diagnosis: Congestive heart failure, acute left ventricular systolic dysfunction, nonischemic cardiomyopathy Coronary artery disease Hypertension Paroxysmal atrial fibrillation RENÉ GR MD Sep 23, 2019 16:00 POS
[2019-09-23] MEDS: FUROSEMIDE 40 MG/4 ML INJ (LASIX) IVP SCH (17:45)
[2019-09-23] MEDS: NS IV 1000 ML 1,000 ML IV SCH (17:45)
[2019-09-23] MEDS: APAP/DIPHENHYDRAMINE (TYLENOL PM) TAB NON-FORMULARY PO SCH ×2 (18:15→20:47)
[2019-09-23] MEDS: ALPRAZolam 1 MG (XANAX) TAB PO SCH (20:44)
[2019-09-23] MEDS: APIXABAN 5 MG (ELIQUIS) TABLET PO SCH (20:45)
[2019-09-23] MEDS: OMEGA 3 (FISH OIL) 1000 MG CAP PO SCH (20:45)
[2019-09-23] MEDS: meTOprolol TARTRATE 25 MG (LOPRESSOR) TABLET PO SCH (20:46)
[2019-09-23] MEDS: busPIRone 10 MG (BUSPAR) TAB PO SCH (20:47)
[2019-09-23] MEDS ORDERED: [UNRECOGNIZED DRUG - REMARK] PO SCH (21:00)
[2019-09-23] MEDS ORDERED: [UNRECOGNIZED DRUG - OTHER] PO SCH (21:00)
[2019-09-23] MEDS ORDERED: NON-FORMULARY MEDICATION 1 EA EA (Potassium Gluconate (Potassium) 99 MG) PO SCH (21:00)
[2019-09-23] MEDS ORDERED: OMEGA PO SCH (21:00)
[2019-09-23] MEDS ORDERED: FISH OIL PO SCH (21:00)
[2019-09-23] MEDS ORDERED: EPA PO SCH (21:00)
[2019-09-23] MEDS ORDERED: MAGNESIUM OXIDE (MAG-OX)400 MG TAB PO SCH (21:00)
[2019-09-23] MEDS ORDERED: NON-FORMULARY MEDICATION 1 EA EA (Magnesium Oxide 250 MG) PO SCH (21:00)
[2019-09-23] MEDS ORDERED: NON-FORMULARY MEDICATION 1 EA EA (Buspirone HCl 10 MG) PO SCH (21:00)
[2019-09-23] MEDS ORDERED: DHA PO SCH (21:00)
[2019-09-23] MEDS ORDERED: MONTELUKAST 10 MG (SINGULAIR) TAB PO SCH (21:00)
[2019-09-24] VITALS: BP 128/76
[2019-09-24] MEDS: NS IV 1000 ML 1,000 ML IV SCH (01:54)
[2019-09-24 03:41] LABS: HEMOGLOBIN 10.3 G/DL (11.5-16.0); MEAN PLATELET VOLUME 11.2 FL (7.4-10.4); RED CELL DISTRIBUTION WIDTH 16.3 % (10.0-14.5); WHITE BLOOD COUNT 5.3 10^3/uL (4.3-11.0)
[2019-09-24 04:00] VITALS: BP 132/87
[2019-09-24 04:13] LABS: BUN/CREATININE RATIO 19; CALCIUM 8.9 MG/DL (8.5-10.1); CARBON DIOXIDE 21 MMOL/L (21-32); CHLORIDE 107 MMOL/L (98-107); CREATININE SERUM 0.83 MG/DL (0.60-1.30); GFR ESTIMATED > 60; GLUCOSE 80 MG/DL (70-105); POTASSIUM 3.3 MMOL/L (3.6-5.0); SODIUM 142 MMOL/L (135-145)
[2019-09-24] MEDS: FUROSEMIDE 40 MG/4 ML INJ (LASIX) IVP SCH (06:43)
[2019-09-24] MEDS ORDERED: OMEPRAZOLE 40 MG CAPSULE PO SCH (07:00)
[2019-09-24 08:00] VITALS: BP 129/88
[2019-09-24] MEDS ORDERED: ASPIRIN E.C. 81 MG (ECOTRIN) TAB PO SCH (09:00)
[2019-09-24] MEDS ORDERED: lisINopril 10 MG (PRINIVIL) TABLET PO SCH (09:00)
[2019-09-24] MEDS ORDERED: LEVOCETIRIZINE 5 MG TAB (XYZAL) NON-FORMULARY PO SCH (09:00)
[2019-09-24] MEDS ORDERED: raLOXifene 60 MG (EVISTA) TAB PO SCH (09:00)
[2019-09-24] MEDS ORDERED: SERTRALINE 50 MG (ZOLOFT) TABLET PO SCH (09:00)
[2019-09-24] MEDS ORDERED: NON-FORMULARY MEDICATION 1 EA EA (Omeprazole 40 MG) PO SCH (09:00)
[2019-09-24] MEDS ORDERED: FURO-125 PO (09:09)
--- NOTE | 2019-09-24 09:10 | Discharge Inst-Post CATH ---
Discharge Inst-CATH/EP Problems Reviewed?: Yes Post Cardiac Cath/EP D/C Inst Follow Up/Plan Appointment with Dr. GR's office next week <b>CARDIAC CATH/EP PROCEDURE DISCHARGE INSTRUCTIONS</b> ACTIVITY * Go Home directly and rest. * Limit activity of the leg (or wrist if it was used) for 7 days including aerobics, swimming, jogging, bicycling, etc. * Restrict stair-climbing for 7 days if possible, if not, climb up with your n on-cath leg, then bring together on the same step. * Avoid lifting, pushing, pulling or excessive movement of the affected ex tremity for 7 days. * Customary sexual activity may be resumed after 2 days-use caution not to use a position that strains or causes pain to the affected extremity. * No driving for 24 hours. * NO SMOKING. * Avoid straining for bowel movements for 7 days. * Gentle walking on level ground is allowed. * Returning to work will depend on the type of procedure and the results. Your doctor will discuss this with you. CALL YOUR DOCTOR FOR ANY OF THE FOLLOWING: *If bleeding from the puncture site occurs- Apply gentle pressure to site with clean cloth and call your doctor or EMS. * If a knot or lump forms under the skin, increases in size, or causes pain. * If bruising appears to be worsening or moving further down your leg instead of disappearing. * Temperature above 101 F. CARE OF YOUR GROIN INCISION; * Bruising or purple discoloration of the skin near the puncture site is common. * You may shower only, no bathtub bathing for 5 days. Be careful to avoid slipping as your leg may feel stiff. * If a closure device was used on your femoral artery, please see the attached guide regarding care of the device and your leg. * Leave dressing on FOR 24 hours. CARE OF YOUR WRIST INCISION; * Bruising or purple discoloration of the skin near the puncture site is common. * You may shower. * DO NOT submerge wrist. * Leave dressing on FOR 24 hours. RENÉ GR MD Sep 24, 2019 09:10 POS
--- NOTE | 2019-09-24 09:16 | Cardiology Progress Note ---
Subjective Date Seen by Provider: Sep 24, 2019 Time Seen by Provider: 09:10 Subjective/Events-last exam Patient is laying down in bed, feeling better. Denied any chest Review of Systems General: No Chills, No Night Sweats, No Fatigue, No Malaise, No Appetite, No Other HEENT: No Head Aches, No Visual Changes, No Eye Pain, No Ear Pain, No Dysphasia, No Sinus Congestion, No Post Nasal Drip, No Sore Throat, No Other Pulmonary: No Dyspnea, No Cough, No Pleuritic Chest Pain, No Other Cardiovascular: No: Chest Pain, Palpitations, Orthopnea, Paroxysmal Noc. Dyspnea, Edema, Lt Headedness, Other Objective-Cardiology Exam Last Set of Vital Signs Vital Signs 09/24/19 09/24/19 04:00 08:00 Temp 35.9 Pulse 80 Resp 18 B/P (MAP) 129/88 (102) Pulse Ox 98 O2 Delivery Room Air O2 Flow Rate 2.00 Capillary Refill : Less Than 3 Seconds I&O Intake and Output 09/24/19 00:00 Intake Total 500 ml Balance 500 ml Intake Oral 500 ml # Voids 3 General: Alert, Oriented X3, Cooperative HEENT: Atraumatic, PERRLA Neck: Supple, No JVD, No Thyromegaly Lungs: Clear to Auscultation, Normal Air Movement Heart: Regular Rate, Normal S1, Normal S2, No Murmurs Abdomen: Normal Bowel Sounds, Soft, No Tenderness, No Hepatosplenomegaly, No Masses Extremities: No Clubbing, No Cyanosis, No Edema, Normal Pulses, No Tenderness/Swelling Skin: No Rashes, No Breakdown, No Significant Lesion Neuro: Normal Gait, Normal Speech, Strength at 5/5 X4 Ext, Normal Tone, Sensation Intact Psych/Mental Status: Mental Status NL, Mood NL Results Lab Laboratory Tests 09/23/19 13:28 09/24/19 03:20 A/P-Cardiology Admission Diagnosis Congestive heart failure, acute on chronic left ventricular systolic dysfu nction, nonischemic cardiomyopathy Coronary artery disease Hypertension Hyperlipidemia Assessment/Plan congestive heart failure, acute on chronic left ventricular systolic dysfun ction, nonischemic cardiomyopathy, ejection fraction 30-35 percent probably secondary to right ventricular pacing. Started on beta blockers and SHON inhibitor, responded well to Lasix. I will continue with diuresis as an outpatient follow-up. Paroxysmal atrial fibrillation, proximal atrial flutter, resistant to multiple treatment, underwent AV jessica ablation and pacemaker implant which made her more symptomatic, discussed with Dr. Coulter for possible upgrading to BIV pacer Hypertension, controlled, monitor blood pressure Hyperlipidemia Palpitation Mild coronary artery disease, groin is healed well, cardiac catheterization showed mild disease nonobstructive disease RENÉ GR MD Sep 24, 2019 09:16 POS
[2019-09-24] MEDS: meTOprolol TARTRATE 25 MG (LOPRESSOR) TABLET PO SCH (09:30)
[2019-09-24] MEDS: OMEGA 3 (FISH OIL) 1000 MG CAP PO SCH (09:30)
[2019-09-24] MEDS: ALPRAZolam 1 MG (XANAX) TAB PO SCH (09:30)
[2019-09-24] MEDS: APIXABAN 5 MG (ELIQUIS) TABLET PO SCH (09:30)
[2019-09-24] MEDS: busPIRone 10 MG (BUSPAR) TAB PO SCH (09:30)
[2019-09-24 12:00] VITALS: BP 125/87
--- NOTE | 2019-09-24 13:18 | NUR ---
Catholic. Wells provided prayer and Communion.
== END 2019-09-24 19:45 | disposition home or self-care (01) ==
LOC: CATH 12:48 → CSD 16:23 → CATH 09-24 19:45
PROVIDERS: ATTEND Internal Medicine Cardiovascular Disease
DX: I25.10 Atherosclerotic heart disease of native coronary artery without angina pectoris (principal); I42.9 Cardiomyopathy, unspecified; I11.0 Hypertensive heart disease with heart failure; I50.23 Acute on chronic systolic (congestive) heart failure; I48.0 Paroxysmal atrial fibrillation; E78.2 Mixed hyperlipidemia; R00.2 Palpitations; I49.3 Ventricular premature depolarization; I47.2 Ventricular tachycardia; M70.61 Trochanteric bursitis, right hip; M70.62 Trochanteric bursitis, left hip; M47.816 Spondylosis without myelopathy or radiculopathy, lumbar region; F32.9 Major depressive disorder, single episode, unspecified; I65.23 Occlusion and stenosis of bilateral carotid arteries; I48.92 Unspecified atrial flutter; F41.9 Anxiety disorder, unspecified; M19.91 Primary osteoarthritis, unspecified site; M79.10 Myalgia, unspecified site; E05.90 Thyrotoxicosis, unspecified without thyrotoxic crisis or storm; K21.9 Gastro-esophageal reflux disease without esophagitis; Z96.653 Presence of artificial knee joint, bilateral; Z95.0 Presence of cardiac pacemaker; Z88.0 Allergy status to penicillin; Z88.2 Allergy status to sulfonamides; Z79.01 Long term (current) use of anticoagulants; Z79.899 Other long term (current) drug therapy; Z11.2 Encounter for screening for other bacterial diseases
CPT/HCPCS: 36415; 71045; 80048; 80053; 80061; 81000; 83880; 85027; 85610; 85730; 87081; 87088; 93005; 93458

== ENCOUNTER → 2019-10-12 | Outpatient (CLI) | payer MEDICARE, OTHER ==
[~2019-10-12] MED LIST changes: +FURO-125 PO; +LISI10TA2 PO
== END ==
LOC: CARD 11:06
PROVIDERS: ATTEND Internal Medicine Cardiovascular Disease
DX: Z45.018 Encounter for adjustment and management of other part of cardiac pacemaker (principal); I08.1 Rheumatic disorders of both mitral and tricuspid valves; I31.3 Pericardial effusion (noninflammatory)
CPT/HCPCS: 93306

== ENCOUNTER 2019-10-27 09:54 | Inpatient (IN) | payer MEDICARE, OTHER ==
[~2019-10-27] VITALS: Ht 162 cm; Wt 67.8 kg
[2019-10-27 10:21] LABS: BASOPHILS % (AUTO) 0 % (0-10); EOSINOPHILS # (AUTO) 0.1 10^3/uL (0.0-0.3); EOSINOPHILS % (AUTO) 1 % (0-10); HEMATOCRIT 34 % (35-52); HEMOGLOBIN 10.7 G/DL (11.5-16.0); LYMPHOCYTES # (AUTO) 1.3 X 10^3 (1.0-4.0); LYMPHOCYTES % (AUTO) 26 % (12-44); MEAN CORPUSCULAR HEMOGLOBIN 28 PG (25-34); MEAN CORPUSCULAR HGB CONC 32 G/DL (32-36); MEAN CORPUSCULAR VOLUME 90 FL (80-99); MEAN PLATELET VOLUME 10.7 FL (7.4-10.4); MONOCYTES # (AUTO) 0.4 X 10^3 (0.0-1.0); MONOCYTES % (AUTO) 7 % (0-12); NEUTROPHILS # (AUTO) 3.2 X 10^3 (1.8-7.8); NEUTROPHILS % (AUTO) 65 % (42-75); PLATELET COUNT 239 10^3/uL (130-400); RED CELL DISTRIBUTION WIDTH 15.6 % (10.0-14.5)
[2019-10-27] MEDS ORDERED: RALO60TA PO (10:28)
[2019-10-27] MEDS ORDERED: CRV25T PO (10:28)
[2019-10-27] MEDS ORDERED: LEVO5TAB28 PO (10:28)
[2019-10-27 10:37] LABS: INR 1.3 (0.8-1.4); PROTHROMBIN TIME PATIENT 16.8 SEC (12.2-14.7)
--- NOTE | 2019-10-27 10:37 | ED Respiratory ---
General Chief Complaint: Respiratory Problems Stated Complaint: SOA/SWOLLEN LEGS Nursing Triage Note: PT AMBULATED TO ROOM 5 PT IS SOA, PT STATES STARTED ON FRIDAY Source: patient History of Present Illness Date Seen by Provider: Oct 27, 2019 Time Seen by Provider: 09:38 Initial Comments PT ARRIVES VIA POV FROM HOME C/O SHORTNESS OF BREATH SYMPTOMS WITH MINIMAL EXERTION, AND ORTHOPNEA--SYMPTOMS IMPROVE WITH REST SYMPTOMS ONGOING FOR THE LAST COUPLE OF WEEKS, BUT MUCH WORSE SINCE Friday10/23/19 NO CHEST PAIN NO SWELLING IN LEGS/ FEET OR PAIN IN CALVES NO SWEATS NO NAUSEA/VOMITING NO COUGH/CONGESTION OR FEVER STATES OCCASIONALLY SHE WILL HAVE PALPITATIONS WITH EXERTION, WHICH GOES AWAY WITH REST. STATES SHE DOES GET A LITTLE LIGHTHEADED WITH THE SHORTNESS OF BREATH PT HAS ATRIAL FIB/FLUTTER AND IS ON ELIQUIS PT HAS HAD 3 CARDIAC ABLATIONS, AND HAS A PACEMAKER STATES SHE HAS AN APPOINTMENT AT ON NOVEMBER 19 TO HAVE PACEMAKER CHANGED TO PACEMAKER + DEFIBRILLATOR PT DOES NOT HAVE A HISTORY OF PULMONARY PROBLEMS AND DOES NOT HAVE HOME O2 HAS NOT SOUGHT CARE UNTIL TODAY FOR THIS PROBLEM PT HAS NOT MISSED ANY DOSES OF MEDICATIONS OR HAD ANY RECENT MEDICATION CHANGES PT HAD LEXISCAN STRESS TEST 09/22/19 FOR COMPLAINT OF ONGOING SHORTNESS OF BREATH--EF 44%, LBBB, PACED RHYTHM, ABNORMAL STRESS TEST PT HAD CARDIAC CATH 09/23/[address] 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 PT ALSO HAD EGD + COLONOSCOPY BY DR. FIGUEROA 08/25/19 FOR ANEMIA--HIATAL HERNIA, GERD, HEMORRHOIDS. PCP: DR. 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 RUSSELL AT Allergies and Home Medications Allergies Coded Allergies: Sulfa (Sulfonamide Antibiotics) (Verified Allergy, Severe, HIVES, 11/14/17) Tetracyclines (Verified Allergy, Unknown, HIVES, 06/21/18) amoxicillin (Verified Allergy, Unknown, hives, 11/09/16) clavulanic acid (Verified Allergy, Unknown, hives, 11/09/16) penicillin G (Verified Allergy, Unknown, HIVES, 06/21/18) Home Medications Acetaminophen/Diphenhydramine 1 Each Tablet, 1 TAB PO HS, (Reported) Alprazolam 1 Mg Tablet, 1 MG PO BID, (Reported) Apixaban 5 Mg Tablet, 5 MG PO BID, (Reported) Buspirone HCl 10 Mg Tablet, 10 MG PO BID, (Reported) Carvedilol 25 Mg Tab, 25 MG PO BID, (Reported) Furosemide 20 Mg Tablet, 20 MG PO DAILY Prescribed by: RENÉ GR on 09/24/19 0909 Levocetirizine Dihydrochloride 5 Mg Tablet, 5 MG PO DAILY, (Reported) Lisinopril 10 Mg Tablet, 10 MG PO DAILY, (Reported) Magnesium Oxide 250 Mg Tablet, 250 MG PO HS, (Reported) Montelukast Sodium 10 Mg Tablet, 10 MG PO HS, (Reported) [place]-3S/Dha/Epa/Fish Oil 1 Each Capsule.dr, 1,000 MG PO BID, (Reported) Omeprazole 40 Mg Capsule.dr, 40 MG PO DAILY, (Reported) Potassium Gluconate 99 Mg Tablet, 99 MG PO HS, (Reported) Sertraline HCl 50 Mg Tablet, 50 MG PO DAILY, (Reported) Patient Home Medication List Home Medication List Reviewed: Yes Review of Systems Review of Systems Constitutional: see HPI; No chills, No diaphoresis; dizziness; No fever EENTM: no symptoms reported Respiratory: see HPI; No cough; dyspnea on exertion; No hemoptysis; orthopnea; No phlegm; short of breath; No wheezing Cardiovascular: see HPI; No chest pain, No edema; palpitations; No syncope, No vascular heart diseas Gastrointestinal: no symptoms reported Genitourinary: no symptoms reported Musculoskeletal: no symptoms reported Skin: no symptoms reported Psychiatric/Neurological: No Symptoms Reported Hematologic/Lymphatic: No Symptoms Reported Immunological/Allergic: no symptoms reported Past Ekyvtjn-Hdelre-Kgqiwq Hx Past Med/Social Hx: Reviewed and Corrections made Patient Social History Alcohol Use: Rarely Uses Alcohol Beverage of Choice: Wine Recreational Drug Use: No Smoking Status: Never a Smoker 2nd Hand Smoke Exposure: No Recent Foreign Travel: No Contact w/Someone Who Travel: No Recent Infectious Disease Expo: No Recent Hopitalizations: No Physical Abuse: No Sexual Abuse: No Immunizations Up To Date Tetanus Booster (TDap): Unknown PED Vaccines UTD: No Date of Pneumonia Vaccine: Sep 22, 2015 Date of Influenza Vaccine: Sep 01, 2017 Seasonal Allergies Seasonal Allergies: No Past Medical History Surgeries: Yes (BILATERAL TOTAL KNEE REPLACEMENTS; BACK SURGERY; CARDIAC ABLATIONS X 3; PACEMAKER; CARDIAC CATH 09/23/19--NO INTERVENTION; EGD/COLONOSC OPY 08/25/19 ) Appendectomy, Cardiac, Joint Replacement, Orthopedic, Pacemaker Respiratory: No Cardiac: Yes (PACEMAKER; CARDIAC ABLATIONS X 3; ABNORMAL LEXISCAN STRESS TEST 09/22/19; CARDIAC CATH 09/23/[address] 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 FIGUEROA--HIATAL HERNIA, GERD, HEMORRHOIDS) Gastroesophageal Reflux, Hemorrhoids Musculoskeletal: Yes (BACK SURGERY 2008-MILD PAIN-6 SCREWS AND 2 RODS; BILATERAL KNEE REPLACEMENTS) Arthritis, Chronic Back Pain Endocrine: No HEENT: No (PARTIAL DENTURES) Cancer: No Psychosocial: Yes Anxiety, Depression Integumentary: No Blood Disorders: Yes (ANEMIA) Adverse Reaction/Blood Tranf: No Family Medical History Cardiovascular disease 19 FATHER (mi) Dementia 19 MOTHER Heart Disease Physical Exam Vital Signs - First Documented 10/27/19 09:55 Temp 36.7 Pulse 94 Resp 24 B/P (MAP) 135/100 (112) Capillary Refill : Less Than 3 Seconds Height: 5'4.00" Weight: 160lbs. 0.0oz. 72.555920py; 25.00 BMI Method:Stated General Appearance: WD/WN, other (DYSPNEIC ON ARRIVAL, QUICKLY RESOLVES AT REST ON ER CART. PT VERY WELL GROOMED, WITH FULL MAKEUP AND PERFUME. ) HEENT: PERRL/EOMI Neck: non-tender, full range of motion, supple, other (+JVD) Respiratory: decreased breath sounds (IN BASES); No rales, No rhonchi, No wheezing; other (DYSPNEIC ON ARRIVAL, QUICKLY RESOLVES AT REST. 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 analyst II-XII nml as tested, no motor/sensory deficits, alert, normal mood/affect, oriented x 3 Skin: normal color, warm/dry Progress/Results/Core Measures Suspected Sepsis Recent Fever Within 48 Hours: No Infection Criteria Present: None New/Unexplained Altered Menta: No Sepsis Screen: No Definite Risk SIRS Temperature: Pulse: 94 Respiratory Rate: 24 Laboratory Tests 10/27/19 10:05: White Blood Count 5.0 Blood Pressure 135 /100 Mean: 112 Laboratory Tests 10/27/19 10:05: Creatinine 0.97, INR Comment 1.3, Platelet Count 239, Total Bilirubin 0.8 Results/Orders Lab Results Laboratory Tests Test 10/27/19 10:05 Range/Units White Blood Count 5.0 4.3-11.0 10^3/uL Red Blood Count 3.77 L 4.35-5.85 10^6/uL Hemoglobin 10.7 L 11.5-16.0 G/DL Hematocrit 34 L 35-52 % Mean Corpuscular Volume 90 80-99 FL Mean Corpuscular Hemoglobin 28 25-34 PG Mean Corpuscular Hemoglobin Concent 32 32-36 G/DL Red Cell Distribution Width 15.6 H 10.0-14.5 % Platelet Count 239 130-400 10^3/uL Mean Platelet Volume 10.7 H 7.4-10.4 FL Neutrophils (%) (Auto) 65 42-75 % Lymphocytes (%) (Auto) 26 12-44 % Monocytes (%) (Auto) 7 0-12 % Eosinophils (%) (Auto) 1 0-10 % Basophils (%) (Auto) 0 0-10 % Neutrophils # (Auto) 3.2 1.8-7.8 X 10^3 Lymphocytes # (Auto) 1.3 1.0-4.0 X 10^3 Monocytes # (Auto) 0.4 0.0-1.0 X 10^3 Eosinophils # (Auto) 0.1 0.0-0.3 10^3/uL Basophils # (Auto) 0.0 0.0-0.1 10^3/uL Prothrombin Time 16.8 H 12.2-14.7 SEC INR Comment 1.3 0.8-1.4 Activated Partial Thromboplast Time 35 24-35 SEC Sodium Level 142 135-145 MMOL/L Potassium Level 3.4 L 3.6-5.0 MMOL/L Chloride Level 108 H 98-107 MMOL/L Carbon Dioxide Level 22 21-32 MMOL/L Anion Gap 12 5-14 MMOL/L Blood Urea Nitrogen 22 H 7-18 MG/DL Creatinine 0.97 0.60-1.30 MG/DL Estimat Glomerular Filtration Rate 56 BUN/Creatinine Ratio 23 Glucose Level 86 70-105 MG/DL Calcium Level 8.9 8.5-10.1 MG/DL Corrected Calcium 8.8 8.5-10.1 MG/DL Magnesium Level 1.9 1.6-2.4 MG/DL Total Bilirubin 0.8 0.1-1.0 MG/DL Aspartate Amino Transf (AST/SGOT) 31 5-34 U/L Alanine Aminotransferase (ALT/SGPT) 23 0-55 U/L Alkaline Phosphatase 90 40-136 U/L Total Creatine Kinase 50 29-168 U/L Creatine Kinase MB 1.6 <6.6 NG/ML Troponin I 0.032 H <0.028 NG/ML B-Type Natriuretic Peptide 2186.7 H <100.0 PG/ML Total Protein 7.2 6.4-8.2 GM/DL Albumin 4.1 3.2-4.5 GM/DL My Orders Orders - BAL SHIPMAN DO Ed Iv/Invasive Line Start (10/27/19 09:59) Ekg Tracing (10/27/19 09:59) O2 (10/27/19 09:59) Monitor-Rhythm Ecg Trace Only (10/27/19 09:59) Chest 1 View, Ap/Pa Only (10/27/19 09:59) BNP (10/27/19 09:59) Cbc With Automated Diff (10/27/19 09:59) Comprehensive Metabolic Panel (10/27/19 09:59) Creatine Kinase (10/27/19 09:59) Creatine Kinase Mb (10/27/19 09:59) Magnesium (10/27/19 09:59) Protime With Inr (10/27/19 09:59) Partial Thromboplastin Time (10/27/19 09:59) Troponin I (10/27/19 09:59) Furosemide Injection (Lasix Injection) (10/27/19 11:30) Catheter(Urinary) Insert & Ass 03,15 (10/27/19 11:16) Vital Signs/I&O 10/27/19 09:55 Temp 36.7 Pulse 94 Resp 24 B/P (MAP) 135/100 (112) Capillary Refill : Less Than 3 Seconds Blood Pressure Mean: 112 POS Progress Note : Progress Note UNEVENTFUL ER STAY NO SYMPTOMS AT REST O2 SATS IN MID TO UPPER 90'S ON ROOM AIR AT REST ECG Initial ECG Impression Date: Oct 27, 2019 Initial ECG Impression Time: 10:00 Initial ECG Rate: 75 Comment 100% AV PACED, IVCD Diagnostic Imaging Comments CXR--CARDIOMEGALY, NO ACUTE PROCESS, PER RADIOLOGIST REPORT AT 1053 Reviewed: Reviewed by [place] Departure Communication (Admissions) 1103--MESSAGE TO DR. GR IN INCREMENT MANAGER 1115--DR. GR ACCEPTS PT FOR ADMIT AND ADVISES LASIX 80 MG NOW. Impression Primary Impression: Elevated troponin Additional Impressions: CHF (congestive heart failure) Non-ischemic cardiomyopathy HX OF ATRIAL FIB/FLUTTER Disposition: ADMITTED INPATIENT Condition: Stable Admissions Decision to Admit Reason: Admit from ER (General) Decision to Admit/Date: Oct 27, 2019 Time/Decision to Admit Time: 11:15 Departure-Patient Inst. Referrals: VALENCIA WILSON DO (PCP/Family) Primary Care Physician BAL SHIPMAN DO Oct 27, 2019 10:37 POS
--- NOTE | 2019-10-27 10:48 | Diagnostic Imaging Report ---
EXAMINATION: Chest radiograph, portable AP view. DATE: 10/27/2019 at 10:38 AM. INDICATION: 74-year-old female, weakness. Bilateral lower extremity pain. COMPARISON: September 23, 2019. FINDINGS: There is redemonstrated cardiomegaly. There is a left-sided cardiac assist device with leads. The leads appear intact. There is no identified pneumothorax. There is no large pleural effusion. There is no identified focal airspace consolidation. IMPRESSION: No identified acute cardiopulmonary abnormality. Dictated by: Dictated on workstation # [id number]
[2019-10-27 10:51] LABS: ALBUMIN 4.1 GM/DL (3.2-4.5); BILIRUBIN,TOTAL 0.8 MG/DL (0.1-1.0); CALCIUM 8.9 MG/DL (8.5-10.1); CREATININE SERUM 0.97 MG/DL (0.60-1.30); MAGNESIUM 1.9 MG/DL (1.6-2.4); POTASSIUM 3.4 MMOL/L (3.6-5.0); TOTAL PROTEIN 7.2 GM/DL (6.4-8.2)
[2019-10-27 10:57] LABS: CREATINE KINASE MB 1.6 NG/ML (<6.6)
[2019-10-27] MEDS ORDERED: FUROSEMIDE 40 MG/4 ML INJ (LASIX) IVP ONE (11:30)
[2019-10-27 12:00] VITALS: BP 114/85
[2019-10-27] MEDS ORDERED: CATHETER FLUSH 10 ML SYR IV PRN (12:30)
[2019-10-27 13:18] VITALS: BP 124/91
[2019-10-27] MEDS ORDERED: KCL 20 MEQ TAB (K-DUR) PO NR (13:45)
--- NOTE | 2019-10-27 14:13 | Cardiology History & Physical ---
HPI-Cardiology Cardiology Consultation Date of Consultation 10/27/19 Date of Admission Time Seen by Provider: 14:09 Indication: Chest pain shortness of breath HPI 74-year-old lady with severe cardiomyopathy, has been having increasing dyspnea, weight gain, pedal edema, orthopnea. Sleeping in her wheelchair, called the office complain of worsening dyspnea and tightness of her chest. She was referred to the emergency room and noted to be in heart failure. Given IV Lasix, reporting some improvement, receiving oxygen. Denied any active chest pain. PMH-Cardiology Immunizations Up To Date Tetanus Booster (DTap): Unknown Date of Pneumonia Vaccine: Sep 22, 2015 Date of Influenza Vaccine: Sep 03, 2019 Seasonal Allergies Seasonal Allergies: No Surgeries Yes (BILATERAL TOTAL KNEE REPLACEMENTS; BACK SURGERY; CARDIAC ABLATIONS X 3; PACEMAKER; CARDIAC CATH 09/23/19--NO INTERVENTION; EGD/COLONOSCOPY 08/25/19 ) Respiratory No Cardiovascular Yes (PACEMAKER; CARDIAC ABLATIONS X 3; ABNORMAL LEXISCAN STRESS TEST 09/22/19; CARDIAC CATH 09/23/[address] 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 FIGUEROA--HIATAL HERNIA, GERD, HEMORRHOIDS) Gastroesophageal Reflux, Hemorrhoids Musculoskeletal Yes (BACK SURGERY 2008-MILD PAIN-6 SCREWS AND 2 RODS; BILATERAL KNEE REPLACEMENTS) Arthritis, Chronic Back Pain Endocrine No HEENT No (PARTIAL DENTURES) Cancer No Psychosocial Yes Anxiety, Depression Integumentary No Blood Transfusions Yes (ANEMIA) Adverse Rxn to Transfusion: No Other PMHx Past medical history as discussed below Social History Patient Social History Marrital Status: cohabiting Employed/Student: retired Alcohol Use: Rarely Uses Recreational Drug Use: No Dip or chew tobacco?: No Recent Foreign Travel: No Contact w/other who traveled: No Recent Infectious Disease Expo: No Family Hx Significant Family History: Heart Disease Family History: Cardiovascular disease 19 FATHER (mi) Dementia 19 MOTHER ROS-Cardiology Review of Systems General: No Chills, No Night Sweats; Fatigue, Malaise; No Appetite HEENT: No Head Aches, No Visual Changes, No Eye Pain, No Ear Pain, No Dysphasia, No Sinus Congestion, No Post Nasal Drip, No Sore Throat Pulmonary: Dyspnea; No Cough, No Pleuritic Chest Pain; Other (Orthopnea) Cardiovascular: Chest Pain, Edema; No: Palpitations, Orthopnea, Paroxysmal Noc. Dyspnea, Lt Headedness Gastrointestinal: No: Nausea, Vomiting, Abdominal Pain, Diarrhea, Constipation, Melena, Hematochezia Genitourinary: No Dysuria, No Frequency, No Incontinence, No Hematuria, No Rete ntion Musculoskeletal: No: neck pain, shoulder pain, arm pain, back pain, hand pain, leg pain, foot pain Neurological: No: Weakness, Numbness, Incoordination, Change in speech, Confusion, Seizures Home Medications & Allergies Allergies: Coded Allergies: Sulfa (Sulfonamide Antibiotics) (Verified Allergy, Severe, HIVES, 11/14/17) Tetracyclines (Verified Allergy, Unknown, HIVES, 06/21/18) amoxicillin (Verified Allergy, Unknown, hives, 11/09/16) clavulanic acid (Verified Allergy, Unknown, hives, 11/09/16) penicillin G (Verified Allergy, Unknown, HIVES, 06/21/18) Home Medication List Reviewed: Yes Exam-Cardiology Vital Signs Vital Signs Date Time Temp Pulse Resp B/P (MAP) Pulse Ox O2 Delivery O2 Flow Rate FiO2 10/27/19 13:23 95 Room Air 10/27/19 13:18 36.8 77 20 124/91 Exam General Appearance: Alert, Oriented X3, Cooperative, No Acute Distress HEENT: Atraumatic, PERRLA Respiratory: Normal Air Movement, Other (Bilateral rhonchi) Cardiovascular: Regular Rate, Normal S1, Normal S2, No Murmurs, Other (S3 present) Abdominal: Normal Bowel Sounds, Soft, No Tenderness, No Hepatosplenomegaly, No Masses Extremities: No Clubbing, No Cyanosis, No Edema, Normal Pulses, No Tenderness/Swelling Skin: No Rashes, No Breakdown, No Significant Lesion Neuro: Normal Gait, Normal Speech, Strength at 5/5 X4 Ext, Normal Tone, Sensation Intact Psych/Mental Status: Mental Status NL, Mood NL Results Labs Labs Laboratory Tests 10/27/19 10:05: White Blood Count 5.0, Red Blood Count 3.77L, Hemoglobin 10.7L, Hematocrit 34L, Mean Corpuscular Volume 90, Mean Corpuscular Hemoglobin 28, Mean Corpuscular Hemoglobin Concent 32, Red Cell Distribution Width 15.6H, Platelet Count 239, Mean Platelet Volume 10.7H, Neutrophils (%) (Auto) 65, Lymphocytes (%) (Auto) 26, Monocytes (%) (Auto) 7, Eosinophils (%) (Auto) 1, Basophils (%) (Auto) 0, Neutrophils # (Auto) 3.2, Lymphocytes # (Auto) 1.3, Monocytes # (Auto) 0.4, Eosinophils # (Auto) 0.1, Basophils # (Auto) 0.0, Prothrombin Time 16.8H, INR Comment 1.3, Activated Partial Thromboplast Time 35, Sodium Level 142, Potassium Level 3.4L, Chloride Level 108H, Carbon Dioxide Level 22, Anion Gap 12, Blood Urea Nitrogen 22H, Creatinine 0.97, Estimat Glomerular Filtration Rate 56, BUN/Creatinine Ratio 23, Glucose Level 86, Calcium Level 8.9, Corrected Calcium 8.8, Magnesium Level 1.9, Total Bilirubin 0.8, Aspartate Amino Transf (AST/SGOT) 31, Alanine Aminotransferase (ALT/SGPT) 23, Alkaline Phosphatase 90, Total Creatine Kinase 50, Creatine Kinase MB 1.6, Troponin I 0.032H, B-Type Natriuretic Peptide 2186.7H, Total Protein 7.2, Albumin 4.1 A/P-Cardiology Admission Diagnosis Congestive heart failure, acute on chronic left ventricular systolic dysfunction, nonischemic cardiomyopathy Coronary artery disease Hypertension Hyperlipidemia Admission Status: Observation Assessment/Plan Congestive heart failure, acute on chronic left ventricular systolic dysfunction, nonischemic cardiomyopathy, ejection fraction 30-35 percent probably secondary to right ventricular pacing. to large dose Lasix IV, continue to maximize medical therapy, she is scheduled for BiV ICD with MRI evaluation of the myocardium at . Dyspnea secondary to heart failure, improving Chest tightness with mild elevation in troponin, mild coronary artery disease per cardiac catheterization. Done in September 2019. Continue to monitor Paroxysmal atrial fibrillation, proximal atrial flutter, resistant to multiple treatment, underwent AV jessica ablation and pacemaker implant which made her more symptomatic, discussed with Dr. Coulter for possible upgrading to BIV pacer Hypertension, restart home medicines monitor Hyperlipidemia, continue on current medication monitor Palpitation, monitor on telemetry Clinical Quality Measures DVT/VTE Risk/Contraindication: Risk Factor Score Per Nursin RFS Level Per Nursing on Admit: 2=Moderate RENÉ GR MD Oct 27, 2019 14:13 POS
[2019-10-27] MEDS ORDERED: OMG1KC PO (14:16)
[2019-10-27] MEDS ORDERED: CARV6.252 PO (14:16)
[2019-10-27] MEDS ORDERED: METO-333 PO (14:16)
[2019-10-27] MEDS ORDERED: FURO20TA4 PO (14:16)
[2019-10-27] MEDS: CATHETER FLUSH 10 ML SYR IV SCH ×2 (14:20→22:55)
[2019-10-27 16:00] VITALS: BP 118/85
[2019-10-27] MEDS: FUROSEMIDE 40 MG/4 ML INJ (LASIX) IVP SCH (16:44)
[2019-10-27] MEDS: ACETAMINOPHEN 325 MG TABLET PO PRN (16:57)
[2019-10-27 20:00] VITALS: BP 123/94
[2019-10-27] MEDS ORDERED: NON-FORMULARY MEDICATION 1 EA EA (Carvedilol (Coreg) 25 MG) PO SCH (21:00)
[2019-10-27] MEDS ORDERED: CARVEDILOL 12.5 MG (COREG) TABLET PO SCH (21:00)
[2019-10-27] MEDS: APIXABAN 5 MG (ELIQUIS) TABLET PO SCH (21:30)
[2019-10-27] MEDS: CARVEDILOL 6.25 MG (COREG) TAB PO SCH (21:30)
[2019-10-28] VITALS (8 sets, daily range): BP systolic 106–130; BP diastolic 78–92
[2019-10-28 03:43] LABS: HEMOGLOBIN 10.9 G/DL (11.5-16.0); MEAN PLATELET VOLUME 11.1 FL (7.4-10.4); RED CELL DISTRIBUTION WIDTH 15.1 % (10.0-14.5); WHITE BLOOD COUNT 5.1 10^3/uL (4.3-11.0)
[2019-10-28 04:06] LABS: BILIRUBIN,TOTAL 0.9 MG/DL (0.1-1.0); CREATININE SERUM 0.93 MG/DL (0.60-1.30); MAGNESIUM 1.8 MG/DL (1.6-2.4); POTASSIUM 3.2 MMOL/L (3.6-5.0)
[2019-10-28] MEDS: FUROSEMIDE 40 MG/4 ML INJ (LASIX) IVP SCH ×2 (06:24→18:20)
[2019-10-28] MEDS: CATHETER FLUSH 10 ML SYR IV SCH ×3 (06:25→21:47)
--- NOTE | 2019-10-28 07:41 | Diagnostic Imaging Report ---
INDICATION: Elevated troponin. Comparison made with prior examination of 10/27/2019. FINDINGS: There is cardiomegaly. Pacemaker overlies left hemithorax. No pleural effusion, pneumothorax or pneumonia. Mediastinum is unremarkable. IMPRESSION: No acute cardiopulmonary abnormality. Cardiomegaly. Dictated by: Dictated on workstation # [id number]
--- NOTE | 2019-10-28 08:13 | Cardiology Progress Note ---
Subjective Date Seen by Provider: Oct 28, 2019 Time Seen by Provider: 08:11 Subjective/Events-last exam Patient is laying down in bed, feeling better, breathing better. No chest pain. Review of Systems General: No Chills, No Night Sweats; Fatigue; No Malaise, No Appetite, No Other HEENT: No Head Aches, No Visual Changes, No Eye Pain, No Ear Pain, No Dysphasia, No Sinus Congestion, No Post Nasal Drip, No Sore Throat, No Other Pulmonary: Dyspnea; No Cough, No Pleuritic Chest Pain, No Other Cardiovascular: No: Chest Pain, Palpitations, Orthopnea, Paroxysmal Noc. Dyspnea, Edema, Lt Headedness, Other Objective-Cardiology Exam Last Set of Vital Signs Vital Signs 10/28/19 10/28/19 03:51 04:13 Temp 36.6 Pulse 83 Resp 20 B/P (MAP) 127/92 (104) Pulse Ox 94 O2 Delivery Room Air Capillary Refill : Less Than 3 Seconds I&O Intake and Output 10/28/19 00:00 Intake Total 2180 ml Output Total 5500 ml Balance -3320 ml Intake Oral 2180 ml Output Urine Total 5500 ml Daily Weight Change No No General: Alert, Oriented X3, Cooperative, No Acute Distress HEENT: Atraumatic, PERRLA Neck: Supple Lungs: Clear to Auscultation, Normal Air Movement Heart: Regular Rate, Normal S1, Normal S2, No Murmurs, Other (S3 present) Abdomen: Normal Bowel Sounds, Soft, No Tenderness, No Hepatosplenomegaly, No Masses Extremities: No Clubbing, No Cyanosis, No Edema, Normal Pulses, No Tenderness/Swelling Skin: No Rashes, No Breakdown, No Significant Lesion Neuro: Normal Gait, Normal Speech, Strength at 5/5 X4 Ext, Normal Tone, Sensation Intact Psych/Mental Status: Mental Status NL, Mood NL Results Lab Laboratory Tests 10/27/19 10:05 10/28/19 03:20 A/P-Cardiology Admission Diagnosis Congestive heart failure, acute on chronic left ventricular systolic dysfunction, nonischemic cardiomyopathy Coronary artery disease Hypertension Hyperlipidemia Assessment/Plan Congestive heart failure, acute on chronic left ventricular systolic dysfunction, nonischemic cardiomyopathy, ejection fraction 30-35 percent probably secondary to right ventricular pacing. she is scheduled for BiV ICD with MRI evaluation of the myocardium at , feeling better today, possible discharge in the afternoon if she feels that her breathing is better Hypokalemia, replace and monitor Dyspnea secondary to heart failure, improving Chest tightness with mild elevation in troponin, mild coronary artery disease per cardiac catheterization. Done in September 2019. Continue to monitor Paroxysmal atrial fibrillation, proximal atrial flutter, resistant to multiple treatment, underwent AV jessica ablation and pacemaker implant which made her more symptomatic, discussed with Dr. Coulter for possible upgrading to BIV pacer Hypertension, continue to monitor blood pressure Hyperlipidemia, continue on current medication monitor Palpitation, monitor on telemetry Clinical Quality Measures DVT/VTE Risk/Contraindication: Risk Factor Score Per Nursin RFS Level Per Nursing on Admit: 2=Moderate RENÉ GR MD Oct 28, 2019 08:13 POS
[2019-10-28] MEDS ORDERED: KCL 20 MEQ TAB (K-DUR) PO NR (08:15)
[2019-10-28] MEDS ORDERED: NON-FORMULARY MEDICATION 1 EA EA (Omeprazole 40 MG) PO SCH (09:00)
[2019-10-28] MEDS: lisINopril 10 MG (PRINIVIL) TABLET PO SCH (09:26)
[2019-10-28] MEDS: CARVEDILOL 6.25 MG (COREG) TAB PO SCH ×2 (09:26→20:21)
[2019-10-28] MEDS: PANTOPRAZOLE 40 MG (PROTONIX) TAB PO SCH (09:26)
[2019-10-28] MEDS: APIXABAN 5 MG (ELIQUIS) TABLET PO SCH ×2 (09:27→20:22)
[2019-10-28] MEDS: ACETAMINOPHEN 325 MG TABLET PO PRN (13:35)
[2019-10-29] VITALS: BP 108/67
[2019-10-29] MEDS: ACETAMINOPHEN 325 MG TABLET PO PRN (02:38)
[2019-10-29 04:00] VITALS: BP 106/71
[2019-10-29 06:11] LABS: BUN/CREATININE RATIO 24; CALCIUM 9.7 MG/DL (8.5-10.1); CARBON DIOXIDE 22 MMOL/L (21-32); CHLORIDE 100 MMOL/L (98-107); CREATININE SERUM 0.86 MG/DL (0.60-1.30); GFR ESTIMATED > 60; GLUCOSE 91 MG/DL (70-105); POTASSIUM 3.5 MMOL/L (3.6-5.0); SODIUM 137 MMOL/L (135-145)
[2019-10-29] MEDS: FUROSEMIDE 40 MG/4 ML INJ (LASIX) IVP SCH (06:19)
[2019-10-29] MEDS: CATHETER FLUSH 10 ML SYR IV SCH (06:19)
[2019-10-29 08:00] VITALS: BP 109/72
[2019-10-29] MEDS ORDERED: POLYETHYLENE GLYCOL 17 GM (MIRALAX) PACK PO ONE (09:45)
[2019-10-29] MEDS: APIXABAN 5 MG (ELIQUIS) TABLET PO SCH (09:50)
[2019-10-29] MEDS: PANTOPRAZOLE 40 MG (PROTONIX) TAB PO SCH (09:51)
[2019-10-29] MEDS: lisINopril 10 MG (PRINIVIL) TABLET PO SCH (09:54)
[2019-10-29] MEDS: CARVEDILOL 6.25 MG (COREG) TAB PO SCH (10:19)
[2019-10-29] MEDS ORDERED: KCL 20 MEQ TAB (K-DUR) PO NR (11:15)
--- NOTE | 2019-10-29 11:19 | Cardiology Discharge Summary ---
Discharge Summary Hospital Course Problems Reviewed?: Yes Hospital Course Date of Admission: Oct 27, 2019 at 11:38 Admission Diagnosis : Family Physician/Provider: Sung Dunn DO Date of Discharge: 10/29/19 Discharge Diagnosis: [ CHF acute on chronic LV systolic dysfunction Dyspnea Hypertension Hyperlipidemia] Hospital Course: [ Congestive heart failure, acute on chronic left ventricular systolic dysfunction, nonischemic cardiomyopathy, ejection fraction 30-35 percent probably secondary to right ventricular pacing. she is scheduled for BiV ICD with MRI evaluation of the myocardium at , feeling better today, better today, planning to send her home Hypokalemia, continue to replace Dyspnea secondary to heart failure, better Chest tightness with mild elevation in troponin, mild coronary artery disease per cardiac catheterization. Done in September 2019. Continue to monitor Paroxysmal atrial fibrillation, proximal atrial flutter, resistant to multiple treatment, underwent AV jessica ablation and pacemaker implant which made her more symptomatic, discussed with Dr. Coulter for possible upgrading to BIV pacer Hypertension, continue to monitor blood pressure Hyperlipidemia, continue on current medication monitor Palpitation, monitor on telemetry] Labs and Pending Lab Test: Laboratory Tests 10/29/19 05:30: Sodium Level 137, Potassium Level 3.5L, Chloride Level 100, Carbon Dioxide Level 22, Anion Gap 15H, Blood Urea Nitrogen 21H, Creatinine 0.86, Estimat Glomerular Filtration Rate > 60, BUN/Creatinine Ratio 24, Glucose Level 91, Calcium Level 9.7, B-Type Natriuretic Peptide 543.2H Home Meds Active Reported Carvedilol 6.25 Mg Tablet 6.25 Mg PO BID Furosemide 20 Mg Tablet 20 Mg PO DAILY Fish Oil 1,000 mg Capsule ([place] 3 Polyunsat Fatty Acids) 1,000 Mg Cap 1,000 Mg PO BID Evista (Raloxifene HCl) 60 Mg Tablet 60 Mg PO DAILY Potassium (Potassium Gluconate) 99 Mg Tablet 99 Mg PO HS Lisinopril 10 Mg Tablet 10 Mg PO DAILY Levocetirizine Dihydrochloride 5 Mg Tablet 5 Mg PO DAILY Montelukast Sodium 10 Mg Tablet 10 Mg PO HS Sertraline HCl 50 Mg Tablet 50 Mg PO DAILY Tylenol Pm Ex-Strength Caplet (Acetaminophen/Diphenhydramine) 1 Each Tablet 1 Tab PO HS Buspirone HCl 10 Mg Tablet 10 Mg PO BID Omeprazole 40 Mg Capsule.dr 40 Mg PO DAILY Alprazolam 1 Mg Tablet 1 Mg PO BID Eliquis (Apixaban) 5 Mg Tablet 5 Mg PO BID Assessment/Pt DC Instructions CHF acute on chronic LV systolic dysfunction Dyspnea Hypertension Hyperlipidemia Discharge Diet: Low Sodium Diet Activity as Tolerated: Yes Discharge Physical Examination Allergies: Coded Allergies: Sulfa (Sulfonamide Antibiotics) (Verified Allergy, Severe, HIVES, 11/14/17) Tetracyclines (Verified Allergy, Unknown, HIVES, 06/21/18) amoxicillin (Verified Allergy, Unknown, hives, 11/09/16) clavulanic acid (Verified Allergy, Unknown, hives, 11/09/16) penicillin G (Verified Allergy, Unknown, HIVES, 06/21/18) General Appearance: No Apparent Distress, WD/WN HEENT: PERRL/EOMI, TMs Normal, Normal ENT Inspection Respiratory: Chest Non Tender, Lungs Clear, Normal Breath Sounds, No Accessory Muscle Use, No Respiratory Distress Cardiovascular: Regular Rate, Rhythm, No Edema, No JVD, Systolic Murmur Gastrointestinal: Normal Bowel Sounds, No Organomegaly, No Pulsatile Mass, Non Tender Extremity: Normal Capillary Refill, Normal Inspection, Normal Range of Motion, Non Tender, No Calf Tenderness Skin: Normal Color, Warm/Dry Neurologic/Psychiatric: Alert, Oriented x3, No Motor/Sensory Deficits, Normal 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
[2019-10-29] MEDS ORDERED: FURO40TA4 PO (11:24)
[2019-10-29] MEDS ORDERED: POTA20TA8 PO (11:24)
[2019-10-29 12:00] VITALS: BP 125/90
[2019-10-30] MEDS ORDERED: KCL 20 MEQ TAB (K-DUR) PO SCH (07:00)
== END 2019-10-29 13:40 | disposition home or self-care (01) | DRG 292 ==
LOC: EDUNIT# 09:54 → ER 09:55 → ICU 11:38 → 4TH 10-28 22:03
PROVIDERS: ADMIT Internal Medicine Cardiovascular Disease; ATTEND Internal Medicine Cardiovascular Disease
DX: I11.0 Hypertensive heart disease with heart failure (principal); I48.92 Unspecified atrial flutter; I50.23 Acute on chronic systolic (congestive) heart failure; I42.8 Other cardiomyopathies; I48.0 Paroxysmal atrial fibrillation; R07.89 Other chest pain; E78.00 Pure hypercholesterolemia, unspecified; R79.89 Other specified abnormal findings of blood chemistry; I25.10 Atherosclerotic heart disease of native coronary artery without angina pectoris; D64.9 Anemia, unspecified; K44.9 Diaphragmatic hernia without obstruction or gangrene; K21.9 Gastro-esophageal reflux disease without esophagitis; K64.9 Unspecified hemorrhoids; M19.91 Primary osteoarthritis, unspecified site; M54.9 Dorsalgia, unspecified; F41.9 Anxiety disorder, unspecified; F32.9 Major depressive disorder, single episode, unspecified; G89.29 Other chronic pain; Z95.0 Presence of cardiac pacemaker; Z96.653 Presence of artificial knee joint, bilateral; Z79.01 Long term (current) use of anticoagulants
CPT/HCPCS: 36415; 51702; 71045; 80048; 80053; 82550; 82553; 83735; 83880; 84484; 85025; 85027; 85610; 85730; 93005; 93041; 96374

== ENCOUNTER → 2019-12-21 | Outpatient (CLI) | payer MEDICARE, OTHER ==
[~2019-12-21] MED LIST changes: -ACET-2469 PO; +ACET-2715 PO; +CARV6.252 PO; +CRV25T PO; -DILT240C PO; +DILT240C91 PO; +FURO20TA4 PO; +FURO40TA4 PO; -METO-370 PO; +METO50TA7 PO; +OMEP40CA27 PO; -OMEP40CA36 PO; +POTA20TA8 PO; +RALO60TA PO; -TRAM50TA2; +TRM50T; +TRM50T PO
--- NOTE | 2019-12-21 14:03 | Diagnostic Imaging Report ---
INDICATION: Routine screening. Comparison is made with prior mammograms from 03/20/2018 and 12/30/2016. 2-D and 3-D bilateral screening mammography was performed. The current study was also evaluated with a Computer Aided Detection (CAD) system. 3-D tomosynthesis was also performed and reviewed. FINDINGS: Scattered fibroglandular densities are identified bilaterally. Parenchymal pattern is stable. No mass or malignant-appearing microcalcifications are seen. Pacemaker battery pack is located in the left axilla. IMPRESSION: No mammographic features suspicious for malignancy are identified. ACR BI-RADS Category 1: Negative. Result letter will be mailed to the patient. Note: At least 10% of breast cancer is not imaged by mammography. Dictated by: Dictated on workstation # [id number]
== END ==
LOC: RAD 12:28
PROVIDERS: ATTEND Internal Medicine
DX: Z12.31 Encounter for screening mammogram for malignant neoplasm of breast (principal)
CPT/HCPCS: 77067

== ENCOUNTER → 2020-02-01 | Outpatient (CLI) | payer MEDICARE, OTHER ==
[~2020-02-01] MED LIST changes: -MECL-106 PO; +MECL-149 PO; -MONT10TA24 PO; +MONT10TA26 PO
== END ==
LOC: CARD 10:55
PROVIDERS: ATTEND Internal Medicine Cardiovascular Disease
DX: I34.0 Nonrheumatic mitral (valve) insufficiency (principal); I11.0 Hypertensive heart disease with heart failure; I50.22 Chronic systolic (congestive) heart failure
CPT/HCPCS: 93306

== ENCOUNTER → 2020-08-30 | Outpatient (RCR) | payer MEDICARE, OTHER ==
[~2020-08-30] MED LIST changes: -ACET-2715 PO; +ACET-3075 PO; -ENAL2.5T PO; -ENAL20TA PO; +ENAL20TA16 PO; +ENLP2.5T PO
== END | disposition home or self-care (01) ==
PROVIDERS: ATTEND Orthopaedic Surgery
DX: S42.254A Nondisplaced fracture of greater tuberosity of right humerus, initial encounter for closed fracture (principal); I10 Essential (primary) hypertension; W01.0XXA Fall on same level from slipping, tripping and stumbling without subsequent striking against object, initial encounter

== ENCOUNTER → 2020-09-21 | Outpatient (CLI) | payer MEDICARE, OTHER ==
[~2020-09-21] MED LIST changes: -AMIO200T4 PO; +AMIO200T6 PO; +AMLO-250 PO; -AMLO5TAB9 PO
== END ==
LOC: CARD 10:00
PROVIDERS: ATTEND Internal Medicine Cardiovascular Disease
DX: I48.92 Unspecified atrial flutter (principal); I11.0 Hypertensive heart disease with heart failure; I50.9 Heart failure, unspecified
CPT/HCPCS: 93306

== ENCOUNTER → 2021-02-01 | Outpatient (CLI) | payer MEDICARE, OTHER ==
[~2021-02-01] MED LIST changes: -LISI10TA2 PO; +LISI10TA25 PO; -MONT10TA26 PO; +MONT10TA32 PO; +SERT-413 PO; -SERT50TA9 PO
--- NOTE | 2021-02-01 11:15 | Diagnostic Imaging Report ---
INDICATION: Patient is on long-term amiodarone. COMPARISON: 10/28/2019. EXAMINATION: Chest, PA and lateral views FINDINGS: The lungs are well-aerated without evidence of air-trapping. There are no infiltrates. No interstitial changes have developed. No pleural effusions. The heart size has decreased since the previous exam. The pacemaker on the left remains unchanged in position with leads appearing unchanged as well. No evidence of pneumothorax. IMPRESSION: 1. No evidence of developing infiltrates within the lungs. 2. Cardiomegaly with decreasing cardiac size since the previous examination. Dictated by: Dictated on workstation # [id number]
== END ==
LOC: RAD 10:46
PROVIDERS: ATTEND Internal Medicine Cardiovascular Disease
DX: I51.7 Cardiomegaly (principal); Z79.899 Other long term (current) drug therapy
CPT/HCPCS: 71046

== ENCOUNTER → 2021-02-01 | Outpatient (CLI) | payer MEDICARE, OTHER ==
--- NOTE | 2021-02-01 13:11 | Diagnostic Imaging Report ---
INDICATION: Routine screening. COMPARISON: 03/06/2020 and 03/20/2018. TECHNIQUE: 2D and 3D bilateral screening mammography was performed with CAD. FINDINGS: Scattered fibroglandular densities are identified bilaterally. The parenchymal pattern is stable. No mass or malignant appearing microcalcifications are identified. A pacemaker battery pack over the left axilla is noted. The right axilla is unremarkable. IMPRESSION: No mammographic features suspicious for malignancy are identified. ACR BI-RADS Category 1: Negative. Result letter will be mailed to the patient. Note: At least 10% of breast cancer is not imaged by mammography. Dictated by: Dictated on workstation # [id number]
== END ==
LOC: RAD 10:37
PROVIDERS: ATTEND Internal Medicine
DX: Z12.31 Encounter for screening mammogram for malignant neoplasm of breast (principal)
CPT/HCPCS: 77063; 77067

== ENCOUNTER → 2021-02-05 | Outpatient (CLI) | payer MEDICARE, OTHER ==
--- NOTE | 2021-02-05 15:42 | Diagnostic Imaging Report ---
INDICATION: Pre MRI evaluation. TIME OF EXAM: 03:13 p.m. COMPARISON: Correlation is made with prior chest from 02/01/2021. FINDINGS: Heart size is stable. Cardiac pacemaker remains in place. No abandoned leads are identified. The lungs are clear. There is no effusion or pneumothorax. IMPRESSION: No acute feature identified. There are no abandoned leads identified to preclude MRI. Dictated by: Dictated on workstation # [id number]
--- NOTE | 2021-02-05 21:28 | Diagnostic Imaging Report ---
PROCEDURE: MRI lumbar spine. TECHNIQUE: Multiplanar, multisequence MRI of the lumbar spine was performed without contrast. DATE: February 05, 2021. COMPARISON: MR lumbar spine May 25, 2019. INDICATION: 75-year-old female, neurogenic claudication. FINDINGS: There is posterior spinal fusion hardware spanning L3-L5. There is associated hardware related artifact. There is disc spacer material at L4-L5. There is no evidence of a diffuse marrow infiltrating or replacing process. There is no identified focal concerning bone lesion. There is severe disc height loss at L2-L3 with adjacent Modic endplate degenerative related changes. There is mild disc height loss at L1-L2 with adjacent Modic endplate degenerative related changes. There is moderate to severe disc height loss at T12-L1 with Modic endplate degenerative related changes. The visualized cord and conus medullaris is unremarkable and terminates at the L2 level. There are subcentimeter T2 hyperintense left renal lesions not well characterized on this exam. L1-L2: There is mild diffuse disc bulge. There are mild bilateral facet degenerative changes with ligamentum flavum hypertrophy. There is mild left foraminal narrowing. There is mild spinal canal stenosis. L2-L3: There is diffuse disc bulge. There is severe narrowing of the right lateral recess and moderate narrowing of the left lateral recess. There are facet degenerative changes with ligamentum flavum hypertrophy. There is moderate right foraminal narrowing. There is severe spinal canal stenosis. L3-L4: There is no disc bulge. There are bilateral laminectomy changes. There is no foraminal narrowing. There is no spinal canal stenosis. L4-L5: There is no disc bulge. There are bilateral laminectomy changes. There is no foraminal narrowing. There is no spinal canal stenosis. L5-S1: There is mild diffuse disc bulge. There are mild right facet degenerative changes. There is severe right and moderate left foraminal narrowing. There is no spinal canal stenosis. IMPRESSION: 1. Postoperative changes spanning L3 through L5. 2. Multilevel disc and facet degenerative changes of the thoracolumbar spine as described level by level above. Findings are most notable at L2-L3, L5-S1, and L1-L2. Findings appear similar to May 25, 2019. Dictated by: Dictated on workstation # [id number]
== END ==
LOC: RAD 14:44
PROVIDERS: ATTEND Registered Nurse
DX: M47.816 Spondylosis without myelopathy or radiculopathy, lumbar region (principal); M47.817 Spondylosis without myelopathy or radiculopathy, lumbosacral region; M51.36 Other intervertebral disc degeneration, lumbar region; M51.37 Other intervertebral disc degeneration, lumbosacral region; M48.062 Spinal stenosis, lumbar region with neurogenic claudication; M48.07 Spinal stenosis, lumbosacral region; M24.28 Disorder of ligament, vertebrae
CPT/HCPCS: 71045; 72148

== ENCOUNTER → 2021-06-05 | Outpatient (CLI) | payer MEDICARE, OTHER ==
[~2021-06-05] MED LIST changes: -DRON400T2 PO; +DRON400T6 PO; -OMEP40CA27 PO; +OMEP40CA6 PO
--- NOTE | 2021-06-05 14:59 | Diagnostic Imaging Report ---
INDICATION: COMPARISON: Postmenopausal screening 03/27/2017 FINDINGS: AP Spine L1-L4: [BMD (g/cm2): NA] [T-Score: NA] [Z-Score: NA] [BMD Previous: NA] [BMD % Change: NA] LT Hip Neck: [BMD (g/cm2): 0.736] [T-Score: -2.2] [Z-Score: -0.5] LT Hip Total: [BMD (g/cm2):0.736] [T-Score:-2.2] [Z-Score: -0.5] [BMD Previous: 0.713] [BMD % Change: 3.2] RT Hip Neck: [BMD (g/cm2):0.708] [T-Score:-2.4] [Z-Score:-0.7] RT Hip Total: [BMD (g/cm2):0.708] [T-score:-2.4] [Z-Score:-0.7] [BMD Previous:17.2] [BMD % Change:5.6] *Indicates significant change from prior examination based on 95% confidence level. World Health Organization criteria for BMD interpretation classify patients as Normal (T-score at or above -1.0), Osteopenic (T-score between -1.0 and -2.5) or Osteoporotic (T-score at or below -2.5). LIMITATIONS AND MODIFICATION: None. FRACTURE RISK (FRAX SCORE): The ten year probability of (%): Major Osteoporotic Fracture: [NA] Hip Fracture: [NA] IMPRESSION: 1. Osteopenia (Low bone mass). 2. No significant change in bone mineral density since prior examination. 3. See below National Osteoporosis Foundation guidelines on when to potentially initiate pharmacologic therapy. Based on the National Osteoporosis Foundation Guidelines, pharmacologic treatment should be initiated in any of the following, unless clinical conditions suggest otherwise: * Any patient with prior fragility fracture of the hip or vertebrae. A spine fracture indicates 5X risk for subsequent spine fracture and 2X risk for subsequent hip fracture. * Osteoporosis (T-score <-2.5). * Postmenopausal women and men age 50 and older with low bone mass/osteopenia (T-score between -1.0 and -2.5) by DXA and 10-year major osteoporotic fracture greater than 20% or a 10-year probability of hip fracture greater than 3%. These fracture risks are supplied above in the FRAX score, if applicable. * Clinician judgement and/or patient preferences may indicate treatment for people with 10-year fracture probabilities above or below these levels. Dictated by: Dictated on workstation # [id number]
== END ==
LOC: RAD 13:26
PROVIDERS: ATTEND Internal Medicine
DX: M85.80 Other specified disorders of bone density and structure, unspecified site (principal); Z78.0 Asymptomatic menopausal state
CPT/HCPCS: 77080

== ENCOUNTER 2021-07-17 10:30 | Outpatient (RCR) | payer MEDICARE, OTHER | END 2021-07-24 | disposition home or self-care (01) | PROVIDERS: ATTEND Registered Nurse | DX: M48.061 Spinal stenosis, lumbar region without neurogenic claudication (principal); M46.1 Sacroiliitis, not elsewhere classified; M70.62 Trochanteric bursitis, left hip; I10 Essential (primary) hypertension; M81.0 Age-related osteoporosis without current pathological fracture; K21.9 Gastro-esophageal reflux disease without esophagitis; Z95.0 Presence of cardiac pacemaker ==

== ENCOUNTER 2021-09-24 13:21 | Outpatient (RCR) | payer MEDICARE, OTHER ==
[~2021-09-24 13:21] MED LIST changes: -AMIO200T6 PO; +AMIO200T65 PO; +MONT-40 PO; -MONT10TA32 PO; +POTA-169 PO; -POTA20TA8 PO; -POTA99TA21 PO; +POTA99TA26 PO
== END 2021-10-23 | disposition home or self-care (01) ==
PROVIDERS: ATTEND Registered Nurse
DX: M48.061 Spinal stenosis, lumbar region without neurogenic claudication (principal); M46.1 Sacroiliitis, not elsewhere classified; M70.62 Trochanteric bursitis, left hip

== ENCOUNTER → 2021-12-28 | Outpatient (CLI) | payer MEDICARE, OTHER ==
[~2021-12-28] MED LIST changes: -FENO200C; -FENO200C PO; +FENO200C27; +FENO200C27 PO
--- NOTE | 2021-12-28 11:54 | Diagnostic Imaging Report ---
Indication: Pre-MRI pacemaker screening. TIME OF EXAM: 11:34 AM Correlation is made with prior chest from 02/05/2021. Heart size is stable. There is a right pacemaker in place with lead tips in the region of the right atrium and right ventricle. No abandoned leads are identified. The lungs are clear. No infiltrates are seen. There is no effusion or pneumothorax. IMPRESSION: No evidence of cardiac pacemaker abandoned leads. Dictated by: Dictated on workstation # [id number]
--- NOTE | 2021-12-28 13:56 | Diagnostic Imaging Report ---
PROCEDURE: MRI lumbar spine. TECHNIQUE: Multiplanar, multisequence MRI of the lumbar spine was performed without contrast. INDICATION: Lower back pain. History of previous surgery. COMPARISON: 02/05/2021. FINDINGS: Postsurgical changes of previous laminectomy and posterior fusion are again identified at L3 through L5. Evaluation of the integrity of the hardware is suboptimal secondary to MR modality and metallic susceptibility artifact, but static alignment at these levels is maintained. Evaluation made of the lumbar spine shows no significant edi or retrolisthesis. There is no evidence of jumped facets. Vertebral body heights are maintained. There is no acute fracture. Evaluation of the marrow signal demonstrates multilevel Modic type I changes, greatest at the L1-L2 level. There is also multilevel intervertebral disc height loss with anterior and posterior endplate disc osteophyte complex formations. Visualized portions of the distal cord are unremarkable. Conus terminates at approximately the L1-L2 level. No abnormal intrathecal filling defects are seen. Pre and paravertebral soft tissue structures are unremarkable. Axial images demonstrate the following: T12-L1: There is broad-based posterior disc osteophyte complex formation and bilateral ligamentum flavum laxity and facet arthropathy. As a result, there is mild narrowing of the spinal canal and bilateral neuroforamen. L1-L2: There is broad-based posterior disc bulge and bilateral ligamentum flavum laxity and facet arthropathy. As a result, there is moderate stenosis of the spinal canal and right neuroforamen. There is also moderate stenosis of the left neuroforamen. L2-L3: There is broad-based posterior disc bulge and bilateral ligamentum flavum laxity and facet arthropathy. As a result, there is severe spinal canal stenosis. Thecal sac is narrowed to approximately 7 mm in AP dimension. Moderate bilateral neuroforaminal stenosis is also present. L3-L4: Postsurgical changes as described above. There is no significant spinal canal or neuroforaminal stenosis. L4-L5: Postsurgical changes as described above. There is no significant spinal canal or neuroforaminal stenosis. L5-S1: There is mild broad-based posterior disc bulge and bilateral ligamentum flavum laxity and facet arthropathy, right greater than left. As a result, there is [id number] stenosis of the right neuroforamen and moderate narrowing on the left. There is also mild narrowing of the spinal canal. IMPRESSION: 1. No acute fracture or dislocation of the lumbar spine. 2. Postsurgical changes of previous posterior fusion at the L3 through L5 levels. Again, evaluation of the integrity of the hardware at these levels is suboptimal, but static alignment is maintained. 3. Multilevel degenerative changes, greatest at the L2-L3 level as described above. Dictated by: Dictated on workstation # [id number]
--- NOTE | 2021-12-28 16:35 | Diagnostic Imaging Report ---
PROCEDURE: CT lumbar spine without contrast. TECHNIQUE: Multiple contiguous axial images were obtained through the lumbar spine without the use of intravenous contrast. Sagittal and coronal reformations were then performed. Auto Exposure Controls were utilized during the CT exam to meet ALARA standards for radiation dose reduction. INDICATION: Back pain. COMPARISON: 01/30/2009. FINDINGS: No acute fracture or dislocation is seen in the lumbar spine. Postsurgical changes of posterior fusion and laminectomy are visualized from L3 to L5 with bipedicle screws and fusion rods. There is fusion across the L3-L4 and L4-L5 levels. Endplate sclerotic changes are seen at the T12-L1, L1-L2 and L2-L3 levels. No suspicious focal osseous lesions are seen. Degenerative changes are present in the lumbar spine with marginal osteophytes, disc bulges and facet hypertrophy. There is at least moderate spinal canal stenosis at the L2-L3 level with moderate bilateral foraminal stenosis. The paraspinal soft tissues are unremarkable. IMPRESSION: 1. No acute fracture or dislocation is seen in the lumbar spine. 2. Posterior fusion and laminectomy from L3 to L5. No hardware fracture or loosening. 3. Multilevel degenerative changes in the lumbar spine greatest at L2-L3. Dictated by: Dictated on workstation # [id number]
== END ==
LOC: RAD 11:30
PROVIDERS: ATTEND Physician Assistant
DX: M47.26 Other spondylosis with radiculopathy, lumbar region (principal); M47.817 Spondylosis without myelopathy or radiculopathy, lumbosacral region; M51.16 Intervertebral disc disorders with radiculopathy, lumbar region; M51.27 Other intervertebral disc displacement, lumbosacral region; M48.061 Spinal stenosis, lumbar region without neurogenic claudication; M48.07 Spinal stenosis, lumbosacral region; Z98.1 Arthrodesis status; Z98.890 Other specified postprocedural states
CPT/HCPCS: 71045; 72131; 72148

== ENCOUNTER → 2022-01-29 | Outpatient (CLI) | payer MEDICARE, OTHER | LOC: CARD 13:30 | PROVIDERS: ATTEND Physician Assistant | DX: I34.0 Nonrheumatic mitral (valve) insufficiency (principal); I11.9 Hypertensive heart disease without heart failure | CPT/HCPCS: 93306 ==

== ENCOUNTER → 2022-05-29 | Outpatient (CLI) | payer MEDICARE, OTHER ==
[~2022-05-29] VITALS: Ht 160 cm; Wt 68.2 kg
[~2022-05-29] MED LIST changes: +ZOLEDRONATE (NON-FORMULARY) 100 ML IV ONE
[2022-05-29 14:00] VITALS: BP 133/91
== END ==
LOC: SDC 12:27
PROVIDERS: ATTEND Internal Medicine
DX: M81.0 Age-related osteoporosis without current pathological fracture (principal)
CPT/HCPCS: 96365

== ENCOUNTER 2022-12-13 10:29 | Outpatient (RCR) | payer MEDICARE, OTHER ==
[~2022-12-13 10:29] MED LIST changes: -ZOLEDRONATE (NON-FORMULARY) 100 ML IV ONE
== END 2022-12-17 | disposition home or self-care (01) ==
PROVIDERS: ATTEND Internal Medicine
DX: M47.817 Spondylosis without myelopathy or radiculopathy, lumbosacral region (principal)

== ENCOUNTER → 2023-01-14 | Outpatient (RCR) | payer MEDICARE, OTHER | END | disposition home or self-care (01) | PROVIDERS: ATTEND Internal Medicine | DX: M47.817 Spondylosis without myelopathy or radiculopathy, lumbosacral region (principal) ==

== ENCOUNTER 2023-01-18 21:40 | Emergency (ER) | payer MEDICARE, OTHER ==
[~2023-01-18] VITALS: Ht 162 cm; Wt 68.0 kg
[2023-01-18] MEDS ORDERED: ASPIRIN 81 MG CHEW (CHILDREN'S ASA) PO ONE (22:00)
[2023-01-18] MEDS ORDERED: NITROGLYCERIN 0.4 MG SL TABS BTL 25'S SL PRN (22:00)
[2023-01-18 22:03] LABS: BASOPHILS % (AUTO) 1 % (0-10); EOSINOPHILS # (AUTO) 0.1 10^3/uL (0.0-0.3); EOSINOPHILS % (AUTO) 2 % (0-10); HEMATOCRIT 32 % (35-52); LYMPHOCYTES # (AUTO) 1.8 10^3/uL (1.0-4.0); LYMPHOCYTES % (AUTO) 32 % (12-44); MEAN CORPUSCULAR HEMOGLOBIN 31 pg (25-34); MEAN CORPUSCULAR HGB CONC 35 g/dL (32-36); MEAN CORPUSCULAR VOLUME 89 fL (80-99); MEAN PLATELET VOLUME 9.8 fL (9.0-12.2); MONOCYTES # (AUTO) 0.5 10^3/uL (0.0-1.0); MONOCYTES % (AUTO) 9 % (0-12); NEUTROPHILS # (AUTO) 3.1 10^3/uL (1.8-7.8); NEUTROPHILS % (AUTO) 56 % (42-75); PLATELET COUNT 213 10^3/uL (130-400); WHITE BLOOD COUNT 5.5 10^3/uL (4.3-11.0)
--- NOTE | 2023-01-18 22:05 | ED Chest Pain ---
General Stated Complaint: CHEST/LEFT ARM/SHOULDER PAIN Source: patient History of Present Illness Date Seen by Provider: Jan 18, 2023 Time Seen by Provider: 21:50 Initial Comments PT ARRIVES VIA POV FROM HOME C/O CHEST PAIN SINCE 1629 THIS AFTERNOON STATES SHE WAS LAYING DOWN AND BEGAN TO HAVE CHEST PAIN/ TIGHTNESS PAIN IS IN LEFT UPPER CHEST, OVER HER PACEMAKER, AND RADIATES TO HER LEFT SHOULDER AND DOWN HER LEFT ARM RATES PAIN 9/10 PAIN IS CONSTANT WORSENS WITH MOVEMENT OF LEFT ARM NO SHORTNESS OF BREATH NO NAUSEA/VOMITING NO SWEATS NO SWELLING IN LEGS/ FEET NO DIZZINESS OR SYNCOPE NO HISTORY OF SIMILAR PT HAS HISTORY OF ATRIAL FIBRILLATION / FLUTTER WITH MULTIPLE CARDIOVERSIONS AND HAS A PACEMAKER IN PLACE. SHE IS ON ELIQUIS SHE STATES SHE DOES NOT HAVE A HISTORY OF CAD. SHE HAD A CARDIAC CATH 09/23/2019--MILD, NON-OBSTRUCTIVE CAD, NO INTERVENTION. EF 30% SHE DOES HAVE HISTORY OF HTN, HYPERLIPIDEMA, DEPRESSION/ANXIETY. SHE HAS TAKEN ALL OF HER ROUTINE MEDICATIONS TODAY SHE HAS NOT TAKEN ANYTHING FOR PAIN SHE WAS SEEN AT AN URGENT CARE 1 WEEK AGO FOR UTI, WAS TREATED WITH CIPRO AND THOSE SYMPTOMS HAVE RESOLVED. FINISHED ANTIBIOTIC YESTERDAY. PCP: DR. WILSON [employer]: Allergies and Home Medications Allergies Coded Allergies: Sulfa (Sulfonamide Antibiotics) (Verified Allergy, Severe, HIVES, 11/14/17) Tetracyclines (Verified Allergy, Unknown, HIVES, 06/21/18) amoxicillin (Verified Allergy, Unknown, hives, 11/09/16) clavulanic acid (Verified Allergy, Unknown, hives, 11/09/16) penicillin G (Verified Allergy, Unknown, HIVES, 06/21/18) Patient Home Medication List Acetaminophen/Diphenhydramine (Tylenol Pm Ex-Strength Caplet) 1 Each Tablet, 1 TAB PO HS, (Reported) Entered as Reported by: MUNIRA SRIVASTAVA on 12/03/17 1235 Alprazolam (Alprazolam) 1 Mg Tablet, 1 MG PO BID, (Reported) Entered as Reported by: MUNIRA SRIVASTAVA on 02/21/16 1039 Apixaban (Eliquis) 5 Mg Tablet, 5 MG PO BID, (Reported) Entered as Reported by: NAIF CONNOLLY on 02/20/16 1845 Buspirone HCl (Buspirone HCl) 10 Mg Tablet, 10 MG PO BID, (Reported) Entered as Reported by: MUNIRA SRIVASTAVA on 09/23/17 0916 Carvedilol (Carvedilol) 6.25 Mg Tablet, 6.25 MG PO BID, (Reported) Entered as Reported by: MUNIRA SRIVASTAVA on 10/27/19 1416 Furosemide (Furosemide) 40 Mg Tablet, 40 MG PO DAILY Prescribed by: RENÉ GR on 10/29/19 1124 Levocetirizine Dihydrochloride (Levocetirizine Dihydrochloride) 5 Mg Tablet, 5 MG PO DAILY, (Reported) Entered as Reported by: MUNIRA SRIVASTAVA on 06/07/19 1051 Lisinopril (Lisinopril) 10 Mg Tablet, 10 MG PO DAILY, (Reported) Entered as Reported by: GIO MAGUIRE on 09/23/19 1335 Montelukast Sodium (Montelukast Sodium) 10 Mg Tablet, 10 MG PO HS, (Reported) Entered as Reported by: UMNIRA SRIVASTAVA on 06/07/19 1051 Mcdougal 3 Polyunsat Fatty Acids (Fish Oil 1,000 mg Capsule) 1,000 Mg Cap, 1,000 MG PO BID, (Reported) Entered as Reported by: MUNIRA SRIVASTAVA on 10/27/19 1416 Omeprazole (Omeprazole) 40 Mg Capsule.dr, 40 MG PO DAILY, (Reported) Entered as Reported by: MUNIRA SRIVASTAVA on 09/23/17 0909 Potassium Chloride (Klor-Con M20) 20 Meq Tab.er.prt, 20 MEQ PO DAILY@0700 Prescribed by: RENÉ GR on 10/29/19 1124 Raloxifene HCl (Evista) 60 Mg Tablet, 60 MG PO DAILY, (Reported) Entered as Reported by: MARCELLE MENSAH on 10/27/19 1028 Sertraline HCl (Sertraline HCl) 50 Mg Tablet, 50 MG PO DAILY, (Reported) Entered as Reported by: MUNIRA SRIVASTAVA on 06/07/19 1051 Review of Systems Review of Systems Constitutional: no symptoms reported EENTM: No Symptoms Reported Respiratory: No Symptoms Reported Cardiovascular: See HPI, Chest Pain; Denies Edema, Denies Irregular Heart Rate, Denies Lightheadedness, Denies Palpitations, Denies Syncope Gastrointestinal: No Symptoms Reported Genitourinary: No Symptoms Reported Musculoskeletal: see HPI Skin: no symptoms reported Psychiatric/Neurological: No Symptoms Reported Endocrine: No Symptoms Reported Hematologic/Lymphatic: No Symptoms Reported Past Sjhyhve-Gtxftl-Gbxwye Hx Patient Social History Tobacco Use?: No Substance use?: No Alcohol Use?: No Immunizations Up To Date Tetanus Booster (TDap): Unknown PED Vaccines UTD: No Seasonal Allergies Seasonal Allergies: No Past Medical History Surgeries: Yes Appendectomy, Cardiac, Joint Replacement, Orthopedic, Pacemaker Respiratory: No Cardiac: Yes (AFIB/FLUTTER-- S/P CARDIVERSIONS AND PACEMAKER. 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 FIGUEROA--HIATAL HERNIA, GERD, HEMORRHOIDS) Gastroesophageal Reflux, Hemorrhoids Musculoskeletal: Yes Arthritis, Chronic Back Pain Endocrine: No HEENT: No (PARTIAL DENTURES) Cancer: No Psychosocial: Yes Anxiety, Depression Integumentary: No Blood Disorders: Yes (ANEMIA) Adverse Reaction/Blood Tranf: No Family Medical History Cardiovascular disease 19 FATHER (mi) Dementia 19 MOTHER Heart Disease SOCIAL HISTORY: PAST SURGICAL HISTORY: PT HAD LEXISCAN STRESS TEST 09/22/19 FOR COMPLAINT OF ONGOING SHORTNESS OF BREATH--EF 44%, LBBB, PACED RHYTHM, ABNORMAL STRESS TEST PT HAD CARDIAC CATH 09/23/[address] 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 PT ALSO HAD EGD + COLONOSCOPY BY DR. FIGUEROA 08/25/19 FOR ANEMIA--HIATAL HERNIA, GERD, HEMORRHOIDS. CARDIAC CATH 09/23/[address] GR: ANATOMY: Left Main is free of obstructive disease Left Anterior Descending has mild disease nonobstructive disease Left Circumflex has mild disease nonobstructive disease Right Coronory Artery has mild disease nonobstructive disease LV Gram is dilated with diffuse left ventricular hypokinesia estimated ejection fraction 30 percent CONCLUSION: 1. Severe nonischemic cardiomyopathy with ejection fraction 30 percent 2. Mild coronary artery disease nonobstructive disease DISCUSSION AND RECOMMENDATION: I will start on Lasix, continue to monitor tolerance and response, restart home medication. Physical Exam Vital Signs Vital Signs - First Documented 01/18/23 21:46 Temp 36.9 Pulse 75 Resp 20 B/P (MAP) 183/122 (142) Pulse Ox 97 O2 Delivery Room Air Capillary Refill : Height, Weight, BMI Height: 5'4.00" Weight: 160lbs. 0.0oz. [id number]; 25.91 BMI Method:Stated General Appearance: No Apparent Distress, WD/WN, Other (VOICE IS STUTTERING/HALTING) Neck: Full Range of Motion, Normal Inspection, Non Tender, Supple; No Carotid Bruit, No JVD Respiratory: Normal Breath Sounds, No Accessory Muscle Use, No Respiratory Distress, Other (LEFT UPPER CHEST TENDER TO PALPATION. PALPATION REPRODUCES PAIN. PACEMAKER SITE IS NORMAL WITHOUT SIGNS OF INFECTION OR INJURY) Cardiovascular: Regular Rate, Rhythm, No Edema, No JVD, No Murmur, Normal Peripheral Pulses Gastrointestinal: Normal Bowel Sounds, No Organomegaly, No Pulsatile Mass, Non Tender, Soft Extremity: Normal Capillary Refill, Normal Inspection, Normal Range of Motion, Non Tender, No Calf Tenderness, No Pedal Edema Neurologic/Psychiatric: Alert, Oriented x3, No Motor/Sensory Deficits, Normal Mood/Affect, acid extractor II-XII Norm as Tested Skin: Normal Color, Warm/Dry; No Rash Progress/Results/Core Measures Results/Orders Lab Results Laboratory Tests Test 01/18/23 21:57 01/19/23 00:20 Range/Units White Blood Count 5.5 4.3-11.0 10^3/uL Red Blood Count 3.58 L 3.80-5.11 10^6/uL Hemoglobin 11.0 L 11.5-16.0 g/dL Hematocrit 32 L 35-52 % Mean Corpuscular Volume 89 80-99 fL Mean Corpuscular Hemoglobin 31 25-34 pg Mean Corpuscular Hemoglobin Concent 35 32-36 g/dL Red Cell Distribution Width 13.3 10.0-14.5 % Platelet Count 213 130-400 10^3/uL Mean Platelet Volume 9.8 9.0-12.2 fL Immature Granulocyte % (Auto) 0 % Neutrophils (%) (Auto) 56 42-75 % Lymphocytes (%) (Auto) 32 12-44 % Monocytes (%) (Auto) 9 0-12 % Eosinophils (%) (Auto) 2 0-10 % Basophils (%) (Auto) 1 0-10 % Neutrophils # (Auto) 3.1 1.8-7.8 10^3/uL Lymphocytes # (Auto) 1.8 1.0-4.0 10^3/uL Monocytes # (Auto) 0.5 0.0-1.0 10^3/uL Eosinophils # (Auto) 0.1 0.0-0.3 10^3/uL Basophils # (Auto) 0.0 0.0-0.1 10^3/uL Immature Granulocyte # (Auto) 0.0 0.0-0.1 10^3/uL Prothrombin Time 13.9 12.2-14.7 SEC INR Comment 1.0 0.8-1.4 Activated Partial Thromboplast Time 38 H 24-35 SEC D-Dimer 0.36 0.00-0.49 UG/ML Sodium Level 135 135-145 MMOL/L Potassium Level 3.7 3.6-5.0 MMOL/L Chloride Level 101 98-107 MMOL/L Carbon Dioxide Level 23 21-32 MMOL/L Anion Gap 11 5-14 MMOL/L Blood Urea Nitrogen 22 H 7-18 MG/DL Creatinine 0.81 0.60-1.30 MG/DL Estimat Glomerular Filtration Rate 75 BUN/Creatinine Ratio 27 Glucose Level 92 70-105 MG/DL Calcium Level 9.5 8.5-10.1 MG/DL Corrected Calcium 9.3 8.5-10.1 MG/DL Magnesium Level 2.0 1.6-2.4 MG/DL Total Bilirubin 0.3 0.1-1.0 MG/DL Aspartate Amino Transf (AST/SGOT) 19 5-34 U/L Alanine Aminotransferase (ALT/SGPT) 14 0-55 U/L Alkaline Phosphatase 70 40-136 U/L Total Creatine Kinase 91 29-168 U/L Creatine Kinase MB 1.2 <6.6 NG/ML Myoglobin 24.1 10.0-92.0 NG/ML Troponin I < 0.028 < 0.028 <0.028 NG/ML B-Type Natriuretic Peptide 139.2 H <100.0 PG/ML Total Protein 7.2 6.4-8.2 GM/DL Albumin 4.2 3.2-4.5 GM/DL Amylase Level 102 25-125 U/L Lipase 75 8-78 U/L My Orders Orders - BAL SHIPMAN DO Ekg Tracing (01/18/23 21:46) Ed Iv/Invasive Line Start (01/18/23 21:52) O2 (01/18/23 21:52) Monitor-Rhythm Ecg Trace Only (01/18/23 21:52) Cbc With Automated Diff (01/18/23 21:52) Magnesium (01/18/23 21:52) Chest 1 View, Ap/Pa Only (01/18/23 21:52) Ekg Tracing (01/18/23 21:52) Comprehensive Metabolic Panel (01/18/23 21:52) Myoglobin Serum (01/18/23 21:52) Protime With Inr (01/18/23 21:52) Partial Thromboplastin Time (01/18/23 21:52) O2 (01/18/23 21:52) Ed Iv/Invasive Line Start (01/18/23 21:52) Creatine Kinase (01/18/23 21:52) Creatine Kinase Mb (01/18/23 21:52) Lipase (01/18/23 21:52) Amylase (01/18/23 21:52) Bnp Izard (01/18/23 21:52) Nitroglycerin 0.4 Mg Btl 25's (Nitrostat (01/18/23 22:00) Aspirin Chewable Tablet (Baby Aspirin Ch (01/18/23 22:00) Fibrin Degradation Products (01/18/23 21:52) Troponin I Izard (01/18/23 21:52) Ketorolac Injection (Toradol Injection) (01/18/23 23:00) Troponin I Izard (01/19/23 00:44) Ekg Tracing (01/19/23 01:11) Troponin I Izard (01/19/23 01:11) Medications Given in ED Current Medications Medications Dose Ordered Sig/Rachel Route Start Time Stop Time Status Last Admin Dose Admin Aspirin 324 mg ONCE ONCE PO 01/18/23 22:00 01/18/23 22:01 DC 01/18/23 22:00 324 MG Ketorolac Tromethamine 30 mg ONCE ONCE IVP 01/18/23 23:00 01/18/23 23:01 DC 01/18/23 23:11 30 MG Nitroglycerin 0.4 mg UD PRN SL 01/18/23 22:00 01/18/23 22:01 0.4 MG Vital Signs/I&O 01/18/23 21:46 Temp 36.9 Pulse 75 Resp 20 B/P (MAP) 183/122 (142) Pulse Ox 97 O2 Delivery Room Air Progress Progress Note : Progress Note GIVEN: -ASPIRIN -NTG SL X REVIEWED PRIOR RECORDS, INCLUDING ER VISITS, ADMITS, H&P'S, CONSULTS, TESTS/PROCEDURES AND DISCHARGE SUMMARIES Initial ECG Impression Date: Jan 18, 2023 Initial ECG Impression Time: 21:49 Initial ECG Rate: 71 Initial ECG Comparisson: Unchanged Comment 100% A-V DUAL PACED RHYTHM. INTERPRETED BY ME Diagnostic Imaging Comments CXR--PENDING RADIOLOGIST REVIEW -NO ACUTE PROCESS Reviewed: Reviewed by Me Departure Impression Primary Impression: Chest pain Additional Impression: Chest wall pain Disposition: 01 HOME, SELF-CARE Condition: Improved Departure-Patient Inst. Decision time for Depature: 01:35 Referrals: RENÉ GR MD, WILLIAM J DO (PCP/Family) Primary Care Physician Patient Instructions: Chest Pain (DC) Add. Discharge Instructions: HOME, REST CONTINUE YOUR REGULAR MEDICATIONS PRESCRIBED TYLENOL AND MOTRIN NEEDED FOR PAIN RETURN TO ER IF YOUR SYMPTOMS RETURN FOLLOW UP WITH DR. GR THIS WEEK FOR FURTHER CARE--CALL FRIDAY MORNING TO SCHEDULE AN APPOINTMENT BAL SHIPMAN DO Jan 18, 2023 22:05
[2023-01-18 22:21] LABS: FIBRIN DEGRADATION PRODUCTS 0.36 UG/ML (0.00-0.49); PROTHROMBIN TIME PATIENT 13.9 SEC (12.2-14.7)
[2023-01-18 22:39] LABS: ALANINE AMINOTRANSFERASE 14 U/L (0-55); ALBUMIN 4.2 GM/DL (3.2-4.5); ALKALINE PHOSPHATASE 70 U/L (40-136); AMYLASE 102 U/L (25-125); BILIRUBIN,TOTAL 0.3 MG/DL (0.1-1.0); BUN/CREATININE RATIO 27; CALCIUM 9.5 MG/DL (8.5-10.1); CARBON DIOXIDE 23 MMOL/L (21-32); CHLORIDE 101 MMOL/L (98-107); CREATINE KINASE 91 U/L (29-168); CREATININE SERUM 0.81 MG/DL (0.60-1.30); GFR ESTIMATED 75; GLUCOSE 92 MG/DL (70-105); LIPASE 75 U/L (8-78); POTASSIUM 3.7 MMOL/L (3.6-5.0); SODIUM 135 MMOL/L (135-145); TOTAL PROTEIN 7.2 GM/DL (6.4-8.2)
[2023-01-18 22:46] LABS: CREATINE KINASE MB 1.2 NG/ML (<6.6)
[2023-01-18] MEDS ORDERED: KETOROLAC 30 MG/ML VIAL IVP ONE (23:00)
[2023-01-19 01:40] VITALS: BP 112/79
--- NOTE | 2023-01-19 06:55 | Diagnostic Imaging Report ---
EXAMINATION: Chest, 1 view. HISTORY: Chest pain. COMPARISON: 12/28/2021. FINDINGS: Heart size and pulmonary vasculature are normal. A left-sided cardiac device is present. Trace left pleural effusion with minimal left basilar atelectasis. No pneumothorax. The osseous structures are intact. IMPRESSION: Trace left pleural effusion with left basilar atelectasis. Dictated by: Dictated on workstation # [id number]
== END 2023-01-19 01:41 | disposition home or self-care (01) ==
LOC: EDUNIT# 21:40 → ER 21:42
DX: R07.89 Other chest pain (principal); I48.91 Unspecified atrial fibrillation; Z79.01 Long term (current) use of anticoagulants; Z95.0 Presence of cardiac pacemaker
CPT/HCPCS: 36415; 71045; 80053; 82150; 82550; 82553; 83690; 83735; 83874; 83880; 84484; 85025; 85379; 85610; 85730; 93005; 93041

== ENCOUNTER 2023-01-27 13:20 | Emergency (ER) | payer MEDICARE, OTHER ==
[~2023-01-27] VITALS: Ht 160 cm; Wt 68.0 kg
[2023-01-27 13:54] LABS: BASOPHILS % (AUTO) 1 % (0-10); EOSINOPHILS # (AUTO) 0.1 10^3/uL (0.0-0.3); EOSINOPHILS % (AUTO) 1 % (0-10); HEMATOCRIT 36 % (35-52); HEMOGLOBIN 12.2 g/dL (11.5-16.0); LYMPHOCYTES # (AUTO) 1.8 10^3/uL (1.0-4.0); LYMPHOCYTES % (AUTO) 27 % (12-44); MEAN CORPUSCULAR HEMOGLOBIN 31 pg (25-34); MEAN CORPUSCULAR HGB CONC 34 g/dL (32-36); MEAN CORPUSCULAR VOLUME 91 fL (80-99); MEAN PLATELET VOLUME 10.4 fL (9.0-12.2); MONOCYTES # (AUTO) 0.6 10^3/uL (0.0-1.0); MONOCYTES % (AUTO) 8 % (0-12); NEUTROPHILS # (AUTO) 4.4 10^3/uL (1.8-7.8); NEUTROPHILS % (AUTO) 63 % (42-75); PLATELET COUNT 286 10^3/uL (130-400); WHITE BLOOD COUNT 6.9 10^3/uL (4.3-11.0)
--- NOTE | 2023-01-27 13:55 | ED General ---
General Chief Complaint: Cardiac/General Problems Stated Complaint: A FIB Nursing Triage Note: PT AMB TO ED BY POV WITH C/O RACING HEART. PT REPORTS SHE BEGAN FEELING LIKE HER HEART WAS RACING, LIGHT HEADED AND WEAK YESTERDAY, WORSE TODAY. DENIES CP, REPORTS SOME SOB. Source of Information: Patient Exam Limitations: No Limitations History of Present Illness Date Seen by Provider: Jan 27, 2023 Time Seen by Provider: 13:40 Initial Comments Patient is a 77-year-old female who presents to the emergency department today with a chief complaint of feeling like she is in atrial fibrillation. Patient tells me that she has a history of anxiety and over the last 24 hours she states that she feels anxious but also feels like she has A-fib. She does have a history of atrial fibrillation status post pacemaker placement at 3 or 4 years ago. She has had no issues with it. She denies any recent illness. No fevers, chills, URI symptoms/COVID concerns. She denies chest pain, shortness of breath no abdominal pain. She does feel a little nauseous. She has normal bowel and bladder function. She is not sure if she took her blood pressure medications this morning but states otherwise she has not really missed any of them. She tells me that normally her blood pressure is in the 120 systolic range, today it is 205 systolic over 118. She denies headache, vision change. No speech difficulties. She tried to call Dr. Price's office but was notified he is out of town currently. Timing/Duration: 24 Hours Severity: Moderate Associated Systoms: Malaise, Nausea/Vomiting Allergies and Home Medications Allergies Coded Allergies: Sulfa (Sulfonamide Antibiotics) (Verified Allergy, Severe, HIVES, 11/14/17) Tetracyclines (Verified Allergy, Unknown, HIVES, 06/21/18) amoxicillin (Verified Allergy, Unknown, hives, 11/09/16) clavulanic acid (Verified Allergy, Unknown, hives, 11/09/16) penicillin G (Verified Allergy, Unknown, HIVES, 06/21/18) Patient Home Medication List Home Medication List Reviewed: Yes Acetaminophen/Diphenhydramine (Tylenol Pm Ex-Strength Caplet) 1 Each Tablet, 1 TAB PO HS, (Reported) Entered as Reported by: MUNIRA SRIVASTAVA on 12/03/17 1235 Alprazolam (Alprazolam) 1 Mg Tablet, 1 MG PO BID, (Reported) Entered as Reported by: MUNIRA SRIVASTAVA on 02/21/16 1039 Apixaban (Eliquis) 5 Mg Tablet, 5 MG PO BID, (Reported) Entered as Reported by: NAIF CONNOLLY on 02/20/16 1845 Buspirone HCl (Buspirone HCl) 10 Mg Tablet, 10 MG PO BID, (Reported) Entered as Reported by: MUNIRA SRIVASTAVA on 09/23/17 0916 Carvedilol (Carvedilol) 6.25 Mg Tablet, 6.25 MG PO BID, (Reported) Entered as Reported by: MUNIRA SRIVASTAVA on 10/27/19 1416 Furosemide (Furosemide) 40 Mg Tablet, 40 MG PO DAILY Prescribed by: RENÉ PRICE on 10/29/19 1124 Levocetirizine Dihydrochloride (Levocetirizine Dihydrochloride) 5 Mg Tablet, 5 MG PO DAILY, (Reported) Entered as Reported by: MUNIRA SRIVASTAVA on 06/07/19 1051 Lisinopril (Lisinopril) 10 Mg Tablet, 10 MG PO DAILY, (Reported) Entered as Reported by: GIO MAGUIRE on 09/23/19 1335 Montelukast Sodium (Montelukast Sodium) 10 Mg Tablet, 10 MG PO HS, (Reported) Entered as Reported by: MUNIRA SRIVASTAVA on 06/07/19 1051 [place] 3 Polyunsat Fatty Acids (Fish Oil 1,000 mg Capsule) 1,000 Mg Cap, 1,000 MG PO BID, (Reported) Entered as Reported by: MUNIRA SRIVASTAVA on 10/27/19 1416 Omeprazole (Omeprazole) 40 Mg Capsule.dr, 40 MG PO DAILY, (Reported) Entered as Reported by: MUNIRA SRIVASTAVA on 09/23/17 0909 Potassium Chloride (Klor-Con M20) 20 Meq Tab.er.prt, 20 MEQ PO DAILY@0700 Prescribed by: RENÉ PRICE on 10/29/19 1124 Raloxifene HCl (Evista) 60 Mg Tablet, 60 MG PO DAILY, (Reported) Entered as Reported by: MARCELLE MENSAH on 10/27/19 1028 Sertraline HCl (Sertraline HCl) 50 Mg Tablet, 50 MG PO DAILY, (Reported) Entered as Reported by: MUNIRA SRIVASTAVA on 06/07/19 1051 Review of Systems Review of Systems Constitutional: see HPI EENTM: no symptoms reported Respiratory: no symptoms reported Cardiovascular: palpitations Gastrointestinal: nausea Genitourinary: no symptoms reported Musculoskeletal: no symptoms reported Skin: no symptoms reported Psychiatric/Neurological: No Symptoms Reported All Other Systems Reviewed Negative Unless Noted: Yes Past Qlajany-Ijfzsb-Oecnbt Hx Patient Social History Tobacco Use?: No Use of E-Cig and/or Vaping dev: No Substance use?: No Alcohol Use?: No Pt feels they are or have been: No Immunizations Up To Date Tetanus Booster (TDap): Unknown PED Vaccines UTD: No Influenza Vaccine Up-to-Date: Yes; Up-to-Date First/Initial COVID19 Vaccinat: X5 Second COVID19 Vaccination Tom: X5 Third COVID19 Vaccination Date: X5 Seasonal Allergies Seasonal Allergies: No Past Medical History Surgery/Hospitalization HX: ABLATION X 3, TKRR, EGD, APPENDECTOMY AFIB, HTN Surgeries: Yes Appendectomy, Cardiac, Joint Replacement, Orthopedic, Pacemaker Respiratory: No Cardiac: Yes (AFIB/FLUTTER-- S/P CARDIVERSIONS AND PACEMAKER. 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 FIGUEROA--HIATAL HERNIA, GERD, HEMORRHOIDS) Gastroesophageal Reflux, Hemorrhoids Musculoskeletal: Yes Arthritis, Chronic Back Pain Endocrine: No HEENT: No (PARTIAL DENTURES) Cancer: No Psychosocial: Yes Anxiety, Depression Integumentary: No Blood Disorders: Yes (ANEMIA) Adverse Reaction/Blood Tranf: No Family Medical History Cardiovascular disease 19 FATHER (mi) Dementia 19 MOTHER Heart Disease SOCIAL HISTORY: PAST SURGICAL HISTORY: PT HAD LEXISCAN STRESS TEST 09/22/19 FOR COMPLAINT OF ONGOING SHORTNESS OF BREATH--EF 44%, LBBB, PACED RHYTHM, ABNORMAL STRESS TEST PT HAD CARDIAC CATH 09/23/[address] PRICE--SEVERE NON-ISCHEMIC CARDIOMYOPATHY WITH EF OF 30%, MILD NON-OCCLUSIVE CAD. PT ALSO HAD EGD + COLONOSCOPY BY DR. FIGUEROA 08/25/19 FOR ANEMIA--HIATAL HERNIA, GERD, HEMORRHOIDS. CARDIAC CATH 09/23/[address] PRICE: ANATOMY: Left Main is free of obstructive disease Left Anterior Descending has mild disease nonobstructive disease Left Circumflex has mild disease nonobstructive disease Right Coronory Artery has mild disease nonobstructive disease LV Gram is dilated with diffuse left ventricular hypokinesia estimated ejection fraction 30 percent CONCLUSION: 1. Severe nonischemic cardiomyopathy with ejection fraction 30 percent 2. Mild coronary artery disease nonobstructive disease DISCUSSION AND RECOMMENDATION: I will start on Lasix, continue to monitor tolerance and response, restart home medication. Physical Exam Vital Signs Vital Signs - First Documented 01/27/23 13:25 Temp 36.4 Pulse 72 Resp 13 B/P (MAP) 200/124 (149) Pulse Ox 97 O2 Delivery Room Air Capillary Refill : Less Than 3 Seconds Height, Weight, BMI Height: 5'4.00" Weight: 160lbs. 0.0oz. [id number]; 26.00 BMI Method:Stated General Appearance: No Apparent Distress, WD/WN HEENT: PERRL/EOMI, Pharynx Normal Neck: Normal Inspection Respiratory: Lungs Clear, Normal Breath Sounds, No Accessory Muscle Use, No Respiratory Distress Cardiovascular: Regular Rate, Rhythm, Normal Peripheral Pulses Gastrointestinal: Soft Extremity: Normal Capillary Refill, Normal Inspection, Normal Range of Motion, Non Tender, No Pedal Edema Neurologic/Psychiatric: Alert, Oriented x3, No Motor/Sensory Deficits, Normal Mood/Affect, Other (tremulous/stuttering speech (chronic)) Skin: Normal Color, Warm/Dry Progress/Results/Core Measures Suspected Sepsis SIRS Temperature: Pulse: 72 Respiratory Rate: 13 Laboratory Tests 01/27/23 13:32: White Blood Count 6.9 Blood Pressure 200 /124 Mean: 149 Laboratory Tests 01/27/23 13:32: Creatinine 0.85, Platelet Count 286 Results/Orders Lab Results Laboratory Tests Test 01/27/23 13:32 01/27/23 14:03 Range/Units White Blood Count 6.9 4.3-11.0 10^3/uL Red Blood Count 3.95 3.80-5.11 10^6/uL Hemoglobin 12.2 11.5-16.0 g/dL Hematocrit 36 35-52 % Mean Corpuscular Volume 91 80-99 fL Mean Corpuscular Hemoglobin 31 25-34 pg Mean Corpuscular Hemoglobin Concent 34 32-36 g/dL Red Cell Distribution Width 13.3 10.0-14.5 % Platelet Count 286 130-400 10^3/uL Mean Platelet Volume 10.4 9.0-12.2 fL Immature Granulocyte % (Auto) 0 % Neutrophils (%) (Auto) 63 42-75 % Lymphocytes (%) (Auto) 27 12-44 % Monocytes (%) (Auto) 8 0-12 % Eosinophils (%) (Auto) 1 0-10 % Basophils (%) (Auto) 1 0-10 % Neutrophils # (Auto) 4.4 1.8-7.8 10^3/uL Lymphocytes # (Auto) 1.8 1.0-4.0 10^3/uL Monocytes # (Auto) 0.6 0.0-1.0 10^3/uL Eosinophils # (Auto) 0.1 0.0-0.3 10^3/uL Basophils # (Auto) 0.0 0.0-0.1 10^3/uL Immature Granulocyte # (Auto) 0.0 0.0-0.1 10^3/uL Sodium Level 131 L 135-145 MMOL/L Potassium Level 3.9 3.6-5.0 MMOL/L Chloride Level 97 L 98-107 MMOL/L Carbon Dioxide Level 21 21-32 MMOL/L Anion Gap 13 5-14 MMOL/L Blood Urea Nitrogen 20 H 7-18 MG/DL Creatinine 0.85 0.60-1.30 MG/DL Estimat Glomerular Filtration Rate 71 BUN/Creatinine Ratio 24 Glucose Level 79 70-105 MG/DL Calcium Level 9.3 8.5-10.1 MG/DL Magnesium Level 1.8 1.6-2.4 MG/DL Urine Color YELLOW Urine Clarity CLEAR Urine pH 6.5 5-9 Urine Specific [place] 1.010 L 1.016-1.022 Urine Protein NEGATIVE NEGATIVE Urine Glucose (UA) NEGATIVE NEGATIVE Urine Ketones NEGATIVE NEGATIVE Urine Nitrite NEGATIVE NEGATIVE Urine Bilirubin NEGATIVE NEGATIVE Urine Urobilinogen 0.2 < = 1.0 MG/DL Urine Leukocyte Esterase NEGATIVE NEGATIVE Urine RBC (Auto) TRACE-I H NEGATIVE Urine RBC 0-2 /HPF Urine WBC RARE /HPF Urine Crystals PRESENT H /LPF Urine Amorphous Sediment FEW CARMITA URATES H /LPF Urine Bacteria NEGATIVE /HPF Urine Casts PRESENT /LPF Urine Hyaline Casts RARE /LPF Urine Mucus NEGATIVE /LPF Urine Culture Indicated NO My Orders Orders - FEROZ VELIZ MD Ekg Tracing (01/27/23 13:25) Ed Iv/Invasive Line Start (01/27/23 13:49) Cbc With Automated Diff (01/27/23 13:49) Basic Metabolic Panel (01/27/23 13:49) Magnesium (01/27/23 13:49) Ua Culture If Indicated (01/27/23 13:49) Labetalol Injection (Normodyne Injection (01/27/23 14:00) Medications Given in ED Vital Signs/I&O 01/27/23 01/27/23 13:25 15:45 Temp 36.4 36.8 Pulse 72 69 Resp 13 20 B/P (MAP) 200/124 (149) 133/108 Pulse Ox 97 98 O2 Delivery Room Air Room Air Capillary Refill : Less Than 3 Seconds Blood Pressure Mean: 149 Progress Note : Time: 15:29 Progress Note Patient seen and evaluated by me. Evaluation today includes physical exam, CBC, basic metabolic panel, urinalysis. Patient also had EKG and pacemaker interrogation. Physical exam pertinent for well-developed well-nourished appearing female slightly anxious. Has chronic tremulous speech. Quite hypertensive at 200/124 at presentation, heart rate regular, paced in the 70s. HEENT exam unremarkable, mucous membranes are moist. Heart is regular lungs are clear. Abdomen is soft and nontender. No edema in her lower extremities. Neuro exam nonfocal, NIH is 0. No cerebellar ataxia on [id number] testing. Differential diagnosis based on history and physical exam, hypertensive emergency, occult infection causing hypertension, hypertension due to missed medication -the patient cannot recall if she took her blood pressure medicines this morning. Labs reviewed, completely within normal limits. CBC is normal, chemistry is normal urinalysis is without signs of infection. EKG is atrial ventricular paced at 71. Interrogation of her [employer] reveals 2 episodes of A-fib 1 on January 18 one a couple weeks prior in mid December. These episodes lasted 50 minutes and 20 minutes respectively. Patient was treated with 10 mg of IV labetalol. Her blood pressure came down nicely into the 130s. However anytime staff would go into the room to assess the patient the following blood pressure would be right back up into the 180s 190s. She maintains no complaints of illness. She states she feels very reassured with the work-up provided to her today. I did discuss the patient with Dr. Dunn who actually has time to see her in the office this afternoon and directed after discharge that she come straight over. Patient seems happy with the plan of care as she was asking for as needed blood pressure medications when her blood pressure goes up this high. All questions are sought and answered. Patient is improved at discharge. ECG Initial ECG Impression Date: Jan 27, 2023 Initial ECG Impression Time: 13:32 Initial ECG Rate: 71 Comment PACED at [address] change Departure Communication (Admissions) Time/Spoke to Consulting Phy: 15:[address] Dunn Impression Primary Impression: Hypertensive urgency Additional Impression: Anxiety Disposition: 01 HOME, SELF-CARE Condition: Stable Departure-Patient Inst. Decision time for Depature: 15:28 Referrals: VALENCIA DUNN DO (PCP/Family) Primary Care Physician Patient Instructions: High Blood Pressure Emergencies Add. Discharge Instructions: Continue your current medications as prescribed. Dr. Dunn has time to see you now and would like you to come directly to his office once discharged from the emergency department. Please come back to the emergency department for reevaluation if you develop any new, concerning or emergent complaints Copy Copies To 1: VALENCIA DUNN KATHRYN M MD Jan 27, 2023 13:55
[2023-01-27] MEDS ORDERED: LABETALOL HCL 20 MG/4 ML VIAL IV ONE (14:00)
[2023-01-27 14:01] LABS: POTASSIUM 3.9 MMOL/L (3.6-5.0)
[2023-01-27 14:03] LABS: CALCIUM 9.3 MG/DL (8.5-10.1)
[2023-01-27 14:07] LABS: CREATININE SERUM 0.85 MG/DL (0.60-1.30)
[2023-01-27 14:09] LABS: MAGNESIUM 1.8 MG/DL (1.6-2.4)
[2023-01-27 14:20] LABS: BILIRUBIN,URINE NEGATIVE (NEGATIVE); CLARITY,URINE CLEAR; COLOR,URINE YELLOW; GLUCOSE, URINE (UA) NEGATIVE (NEGATIVE); KETONES,URINE NEGATIVE (NEGATIVE); LEUKOCYTE ESTERASE ,URINE NEGATIVE (NEGATIVE); NITRITE,URINE NEGATIVE (NEGATIVE); PH,URINE 6.5 (5-9); PROTEIN,URINE NEGATIVE (NEGATIVE)
[2023-01-27 14:47] LABS: AMORPHOUS SEDIMENT,UR FEW AMOR URATES /LPF; BACTERIA,URINE NEGATIVE /HPF; HYALINE CASTS, URINE RARE /LPF; RBC,URINE 0-2 /HPF; WBC,URINE RARE /HPF
[2023-01-27 15:45] VITALS: BP 133/108
== END 2023-01-27 15:45 | disposition home or self-care (01) ==
LOC: EDUNIT# 13:20 → ER 13:21
DX: F41.9 Anxiety disorder, unspecified (principal); I16.0 Hypertensive urgency; I10 Essential (primary) hypertension; I48.91 Unspecified atrial fibrillation; Z95.0 Presence of cardiac pacemaker; Z79.899 Other long term (current) drug therapy
CPT/HCPCS: 36415; 80048; 81000; 83735; 85025; 93005

== ENCOUNTER 2023-02-07 13:39 | Outpatient (RCR) | payer MEDICARE, OTHER | END 2023-02-14 | disposition home or self-care (01) | PROVIDERS: ATTEND Internal Medicine | DX: M47.816 Spondylosis without myelopathy or radiculopathy, lumbar region (principal); M47.817 Spondylosis without myelopathy or radiculopathy, lumbosacral region ==

== ENCOUNTER 2023-03-13 14:11 | Outpatient (RCR) | payer MEDICARE, OTHER ==
[~2023-03-13 14:11] MED LIST changes: +ENAL-70 PO; -ENAL20TA16 PO
== END 2023-03-16 | disposition home or self-care (01) ==
PROVIDERS: ATTEND Internal Medicine
DX: M47.817 Spondylosis without myelopathy or radiculopathy, lumbosacral region (principal); I10 Essential (primary) hypertension

== ENCOUNTER 2023-03-26 19:34 | Emergency (ER) | payer MEDICARE, OTHER ==
[~2023-03-26] VITALS: Ht 160 cm; Wt 68.0 kg
[2023-03-26] MEDS ORDERED: NITROGLYCERIN 2% OINT 1 GM UNIT DOSE PACKET TOP STA (19:47)
[2023-03-26] MEDS ORDERED: LORazepam 0.5 MG (ATIVAN) TABLET PO STA (19:47)
[2023-03-26 20:09] LABS: ALBUMIN 4.6 GM/DL (3.2-4.5); CHLORIDE 100 MMOL/L (98-107); POTASSIUM 3.4 MMOL/L (3.6-5.0); SODIUM 132 MMOL/L (135-145)
[2023-03-26 20:10] LABS: BASOPHILS % (AUTO) 0 % (0-10); CALCIUM 9.3 MG/DL (8.5-10.1); EOSINOPHILS # (AUTO) 0.1 10^3/uL (0.0-0.3); EOSINOPHILS % (AUTO) 1 % (0-10); HEMATOCRIT 35 % (35-52); HEMOGLOBIN 11.8 g/dL (11.5-16.0); LYMPHOCYTES # (AUTO) 1.5 10^3/uL (1.0-4.0); LYMPHOCYTES % (AUTO) 21 % (12-44); MEAN CORPUSCULAR HEMOGLOBIN 31 pg (25-34); MEAN CORPUSCULAR HGB CONC 34 g/dL (32-36); MEAN CORPUSCULAR VOLUME 91 fL (80-99); MEAN PLATELET VOLUME 10.1 fL (9.0-12.2); MONOCYTES # (AUTO) 0.5 10^3/uL (0.0-1.0); MONOCYTES % (AUTO) 7 % (0-12); NEUTROPHILS # (AUTO) 4.9 10^3/uL (1.8-7.8); NEUTROPHILS % (AUTO) 70 % (42-75); PLATELET COUNT 276 10^3/uL (130-400); WHITE BLOOD COUNT 6.9 10^3/uL (4.3-11.0)
[2023-03-26 20:11] LABS: GLUCOSE 100 MG/DL (70-105); TOTAL PROTEIN 8.3 GM/DL (6.4-8.2)
[2023-03-26 20:12] LABS: CARBON DIOXIDE 18 MMOL/L (21-32)
[2023-03-26 20:13] LABS: BILIRUBIN,TOTAL 0.3 MG/DL (0.1-1.0)
[2023-03-26 20:14] LABS: INR 1.1 (0.8-1.4); PROTHROMBIN TIME PATIENT 13.9 SEC (12.2-14.7)
[2023-03-26 20:15] LABS: ALKALINE PHOSPHATASE 63 U/L (40-136); CREATININE SERUM 0.86 MG/DL (0.60-1.30); GFR ESTIMATED 70
[2023-03-26 20:16] LABS: BUN/CREATININE RATIO 20
[2023-03-26 20:17] LABS: FIBRIN DEGRADATION PRODUCTS 0.46 UG/ML (0.00-0.49)
[2023-03-26 20:18] LABS: ALANINE AMINOTRANSFERASE 18 U/L (0-55); MAGNESIUM 1.9 MG/DL (1.6-2.4)
[2023-03-26 20:19] LABS: CREATINE KINASE 106 U/L (29-168)
--- NOTE | 2023-03-26 20:29 | Diagnostic Imaging Report ---
INDICATION: Chest pain. EXAMINATION: Frontal chest was obtained at 7:44 p.m. COMPARISON: 01/18/2023. FINDINGS: There is prominent cardiomegaly. Pacemaker is unchanged. There is no focal infiltrate, pneumothorax or pleural fluid. There is some mild right basilar atelectasis. IMPRESSION: Cardiomegaly with unchanged pacemaker device. Mild right basilar atelectasis. Otherwise negative study. Dictated by: Dictated on workstation # [id number]
--- NOTE | 2023-03-26 20:39 | ED Cardiac General ---
History of Present Illness General Chief Complaint: Cardiac/General Problems Stated Complaint: RAPID HEART RATE/ELEV BP Nursing Triage Note: PATIENT AMBULATORY TO ROOM WITH COMPLAINT OF FEELNG "ANXIOUS" OVER THE LAST THREE DAYS. PATIENT STATES SHE HAS A HX OF AFIB AND FEELS LIKE SHE IS HAVING RAPID HEART BEATS. PATIENT STATES SHE ALSO TOOK HER BP AT HOME AND IT WAS ELEVATED. Source: patient, old records History of Present Illness Date Seen by Provider: March 26, 2023 Time Seen by Provider: 19:40 Initial Comments PT ARRIVES VIA POV FROM HOME PT STATES FOR THE LAST FEW DAYS SHE HAS HAD SENSATION OF A RAPID HEART BEAT, WITH SOME THROAT TIGHTNESS, AND HER CHEST FEELS TIGHT OVER HER PACEMAKER SHE HAS HAD SOME NAUSEA, NO VOMITING SHE HAS HAD SOME TINGLING OF HER LOWER LIP SHE HAS FELT SLIGHTLY SHORT OF BREATH NO SWELLING ANYWHERE NO SWEATS NO DIZZINESS OR SYNCOPE PT HAS HISTORY OF ATRIAL FIBRILLATION, AND ALSO ANXIETY SHE STATES SHE HAS BEEN FEELING VERY ANXIOUS THE LAST 3 DAYS. SHE ALSO TOOK HER BLOOD PRESSURE AT HOME AND IT WAS ELEVATED, BUT CAN'T REMEMBER HOW HIGH IT WASY. SHE HAS NOT HAD ANY MEDICATION CHANGES, SHE HAS NOT TAKEN HER EVENING MEDICATIONS, BUT HAS NOT MISSED ANY DOSES OF MEDICATIONS. PCP: DR. WILSON STUD DRIVER: DR. GR Allergies and Home Medications Allergies Coded Allergies: Sulfa (Sulfonamide Antibiotics) (Verified Allergy, Severe, HIVES, 11/14/17) Tetracyclines (Verified Allergy, Unknown, HIVES, 06/21/18) amoxicillin (Verified Allergy, Unknown, hives, 11/09/16) clavulanic acid (Verified Allergy, Unknown, hives, 11/09/16) penicillin G (Verified Allergy, Unknown, HIVES, 06/21/18) Patient Home Medication List Home Medication List Reviewed: Yes Acetaminophen/Diphenhydramine (Tylenol Pm Ex-Strength Caplet) 1 Each Tablet, 1 TAB PO HS, (Reported) Entered as Reported by: MUNIRA SRIVASTAVA on 12/03/17 1235 Alprazolam (Alprazolam) 1 Mg Tablet, 1 MG PO BID, (Reported) Entered as Reported by: MUNIRA SRIVASTAVA on 02/21/16 1039 Apixaban (Eliquis) 5 Mg Tablet, 5 MG PO BID, (Reported) Entered as Reported by: NAIF CONNOLLY on 02/20/16 1845 Buspirone HCl (Buspirone HCl) 10 Mg Tablet, 10 MG PO BID, (Reported) Entered as Reported by: MUNIRA SRIVASTAVA on 09/23/17 0916 Carvedilol (Carvedilol) 6.25 Mg Tablet, 6.25 MG PO BID, (Reported) Entered as Reported by: MUNIRA SRIVASTAVA on 10/27/19 1416 Furosemide (Furosemide) 40 Mg Tablet, 40 MG PO DAILY Prescribed by: RENÉ GR on 10/29/19 1124 Levocetirizine Dihydrochloride (Levocetirizine Dihydrochloride) 5 Mg Tablet, 5 MG PO DAILY, (Reported) Entered as Reported by: MUNIRA SRIVASTAVA on 06/07/19 1051 Lisinopril (Lisinopril) 10 Mg Tablet, 10 MG PO DAILY, (Reported) Entered as Reported by: GIO MAGUIRE on 09/23/19 1335 Montelukast Sodium (Montelukast Sodium) 10 Mg Tablet, 10 MG PO HS, (Reported) Entered as Reported by: MUNIRA SRIVASTAVA on 06/07/19 1051 [place] 3 Polyunsat Fatty Acids (Fish Oil 1,000 mg Capsule) 1,000 Mg Cap, 1,000 MG PO BID, (Reported) Entered as Reported by: MUNIRA SRIVASTAVA on 10/27/19 1416 Omeprazole (Omeprazole) 40 Mg Capsule.dr, 40 MG PO DAILY, (Reported) Entered as Reported by: MUNIRA SRIVASTAVA on 09/23/17 0909 Potassium Chloride (Klor-Con M20) 20 Meq Tab.er.prt, 20 MEQ PO DAILY@0700 Prescribed by: RENÉ GR on 10/29/19 1124 Raloxifene HCl (Evista) 60 Mg Tablet, 60 MG PO DAILY, (Reported) Entered as Reported by: MARCELLE MENSAH on 10/27/19 1028 Sertraline HCl (Sertraline HCl) 50 Mg Tablet, 50 MG PO DAILY, (Reported) Entered as Reported by: MUNIRA SRIVASTAVA on 06/07/19 1051 Review of Systems Review of Systems Constitutional: no symptoms reported Respiratory: See HPI, Shortness of Air Cardiovascular: See HPI, Chest Pain; Denies Lightheadedness; Palpitations Gastrointestinal: See HPI; Denies Abdominal Pain; Nausea; Denies Vomiting Genitourinary: No Symptoms Reported Musculoskeletal: no symptoms reported Skin: no symptoms reported Psychiatric/Neurological: See HPI, Anxiety Endocrine: No Symptoms Reported Hematologic/Lymphatic: No Symptoms Reported Past Kfkbkjf-Ritneu-Gdlbve Hx Patient Social History Tobacco Use?: No Use of E-Cig and/or Vaping dev: No Substance use?: No Alcohol Use?: No Immunizations Up To Date Tetanus Booster (TDap): Unknown PED Vaccines UTD: No Influenza Vaccine Up-to-Date: Yes; Up-to-Date First/Initial COVID19 Vaccinat: 2020 Second COVID19 Vaccination Tom: 2020 Third COVID19 Vaccination Date: 2021 Seasonal Allergies Seasonal Allergies: Yes Past Medical History Surgery/Hospitalization HX: ABLATION X 3, TKRR, EGD, APPENDECTOMY AFIB, HTN Surgeries: Yes Appendectomy, Cardiac, Joint Replacement, Orthopedic, Pacemaker Respiratory: No Cardiac: Yes (AFIB/FLUTTER-- S/P CARDIVERSIONS AND PACEMAKER. 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 FIGUEROA--HIATAL HERNIA, GERD, HEMORRHOIDS) Gastroesophageal Reflux, Hemorrhoids Musculoskeletal: Yes Arthritis, Chronic Back Pain Endocrine: No HEENT: No (PARTIAL DENTURES) Cancer: No Psychosocial: Yes Anxiety, Depression Integumentary: No Blood Disorders: Yes (ANEMIA) Adverse Reaction/Blood Tranf: No Family Medical History Cardiovascular disease 19 FATHER (mi) Dementia 19 MOTHER Heart Disease SOCIAL HISTORY: PAST SURGICAL HISTORY: PT HAD LEXISCAN STRESS TEST 09/22/19 FOR COMPLAINT OF ONGOING SHORTNESS OF BREATH--EF 44%, LBBB, PACED RHYTHM, ABNORMAL STRESS TEST PT HAD CARDIAC CATH 09/23/[address] 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 PT ALSO HAD EGD + COLONOSCOPY BY DR. FIGUEROA 08/25/19 FOR ANEMIA--HIATAL HERNIA, GERD, HEMORRHOIDS. CARDIAC CATH 09/23/[address] GR: ANATOMY: Left Main is free of obstructive disease Left Anterior Descending has mild disease nonobstructive disease Left Circumflex has mild disease nonobstructive disease Right Coronory Artery has mild disease nonobstructive disease LV Gram is dilated with diffuse left ventricular hypokinesia estimated ejection fraction 30 percent CONCLUSION: 1. Severe nonischemic cardiomyopathy with ejection fraction 30 percent 2. Mild coronary artery disease nonobstructive disease DISCUSSION AND RECOMMENDATION: I will start on Lasix, continue to monitor tolerance and response, restart home medication. Physical Exam Vital Signs Vital Signs - First Documented 03/26/23 19:35 Temp 36.8 Pulse 81 Resp 18 B/P (MAP) 199/117 (144) Pulse Ox 96 O2 Delivery Room Air Capillary Refill : Less Than 3 Seconds Height, Weight, BMI Height: 5'4.00" Weight: 160lbs. 0.0oz. [id number]; 26.00 BMI Method:Stated General Appearance: No Apparent Distress, WD/WN, Anxious, Other (VOICE VERY TREMULOUS) HEENT: PERRL/EOMI, Other (NO SWELLING TO LIPS OR TONGUE) Neck: Normal Inspection Respiratory: Normal Breath Sounds, No Accessory Muscle Use, No Respiratory Distress Cardiovascular: Regular Rate, Rhythm, No Edema, No JVD, No Murmur, Normal Peripheral Pulses Gastrointestinal: Non Tender, Soft Extremity: Normal Capillary Refill, Normal Inspection, Normal Range of Motion, Non Tender, No Calf Tenderness, No Pedal Edema Neurologic/Psychiatric: Alert, Oriented x3, No Motor/Sensory Deficits, 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 Norm as Tested, Other (VERY ANXIOUS; VOICE TREMULOUS) Skin: Normal Color, Warm/Dry Progress/Results/Core Measures Results/Orders Lab Results Laboratory Tests Test 03/26/23 19:40 Range/Units White Blood Count 6.9 4.3-11.0 10^3/uL Red Blood Count 3.86 3.80-5.11 10^6/uL Hemoglobin 11.8 11.5-16.0 g/dL Hematocrit 35 35-52 % Mean Corpuscular Volume 91 80-99 fL Mean Corpuscular Hemoglobin 31 25-34 pg Mean Corpuscular Hemoglobin Concent 34 32-36 g/dL Red Cell Distribution Width 12.9 10.0-14.5 % Platelet Count 276 130-400 10^3/uL Mean Platelet Volume 10.1 9.0-12.2 fL Immature Granulocyte % (Auto) 0 % Neutrophils (%) (Auto) 70 42-75 % Lymphocytes (%) (Auto) 21 12-44 % Monocytes (%) (Auto) 7 0-12 % Eosinophils (%) (Auto) 1 0-10 % Basophils (%) (Auto) 0 0-10 % Neutrophils # (Auto) 4.9 1.8-7.8 10^3/uL Lymphocytes # (Auto) 1.5 1.0-4.0 10^3/uL Monocytes # (Auto) 0.5 0.0-1.0 10^3/uL Eosinophils # (Auto) 0.1 0.0-0.3 10^3/uL Basophils # (Auto) 0.0 0.0-0.1 10^3/uL Immature Granulocyte # (Auto) 0.0 0.0-0.1 10^3/uL Prothrombin Time 13.9 12.2-14.7 SEC INR Comment 1.1 0.8-1.4 Activated Partial Thromboplast Time 36 H 24-35 SEC D-Dimer 0.46 0.00-0.49 UG/ML Sodium Level 132 L 135-145 MMOL/L Potassium Level 3.4 L 3.6-5.0 MMOL/L Chloride Level 100 98-107 MMOL/L Carbon Dioxide Level 18 L 21-32 MMOL/L Anion Gap 14 5-14 MMOL/L Blood Urea Nitrogen 17 7-18 MG/DL Creatinine 0.86 0.60-1.30 MG/DL Estimat Glomerular Filtration Rate 70 BUN/Creatinine Ratio 20 Glucose Level 100 70-105 MG/DL Calcium Level 9.3 8.5-10.1 MG/DL Corrected Calcium 8.5-10.1 MG/DL Magnesium Level 1.9 1.6-2.4 MG/DL Total Bilirubin 0.3 0.1-1.0 MG/DL Aspartate Amino Transf (AST/SGOT) 23 5-34 U/L Alanine Aminotransferase (ALT/SGPT) 18 0-55 U/L Alkaline Phosphatase 63 40-136 U/L Total Creatine Kinase 106 29-168 U/L Myoglobin 26.0 10.0-92.0 NG/ML Troponin I < 0.028 <0.028 NG/ML B-Type Natriuretic Peptide 115.3 H <100.0 PG/ML Total Protein 8.3 H 6.4-8.2 GM/DL Albumin 4.6 H 3.2-4.5 GM/DL My Orders Orders - UMBERTO,BAL K DO Ekg Tracing (03/26/23 19:37) Ed Iv/Invasive Line Start (03/26/23 19:47) Monitor-Rhythm Ecg Trace Only (03/26/23 19:47) Bnp [place] (03/26/23 19:47) Cbc With Automated Diff (03/26/23:47) Comprehensive Metabolic Panel (03/26/23:47) Creatine Kinase (03/26/23 19:47) Fibrin Degradation Products (03/26/23 19:47) Magnesium (03/26/23 19:47) Protime With Inr (03/26/23:47) Partial Thromboplastin Time (03/26/23 19:47) Troponin I [place] (03/26/23 19:47) Chest 1 View, Ap/Pa Only (03/26/23 19:47) Myoglobin Serum (03/26/23 19:47) O2 (03/26/23 19:47) Ed Iv/Invasive Line Start (03/26/23 19:47) Nitroglycerin Ointment (Nitrobid Ointme (03/26/23 19:47) Lorazepam Tablet (Ativan Tablet) (03/26/23 19:47) Vital Signs/I&O 03/26/23 03/26/23 03/26/23 03/26/23 19:35 19:58 20:35 21:00 Temp 36.8 Pulse 81 70 69 69 Resp 18 20 18 18 B/P (MAP) 199/117 (144) 143/84 (103) 122/86 (98) 132/84 Pulse Ox 96 96 95 95 O2 Delivery Room Air Room Air Room Air Room Air Blood Pressure Mean: 98 Progress Progress Note : Progress Note NITROPASTE HELD, BP DOWN TO 140'S/80'S SHORTLY AFTER ARRIVAL GIVEN ATIVAN FOR ANXIETY ALL SYMPTOMS RESOLVED SHORTLY AFTER ARRIVAL BP DOWN TO 120'S/80'S. HR STABLE--CONTINUES TO BE 100% A-V PACED. DISCUSSED TEST RESULTS, ANTICIPATED COURSE, NEED FOR FOLLOW UP AND RETURN PRECAUTIONS. PT FEELS COMFORTABLE GOING HOME. Initial ECG Impression Date: March 26, 2023 Initial ECG Impression Time: 19:41 Initial ECG Rate: 73 Initial ECG Intervals 1--% A-V PACED Comment 100% A-V PACED. INTERPRETED BY ME. Diagnostic Imaging Comments CXR--PER RADIOLOGIST REPORT AT 2038 FINDINGS: There is prominent cardiomegaly. Pacemaker is unchanged. There is no focal infiltrate, pneumothorax or pleural fluid. There is some mild right basilar atelectasis. IMPRESSION: Cardiomegaly with unchanged pacemaker device. Mild right basilar atelectasis. Otherwise negative study. Reviewed: Reviewed by Me Departure Impression Primary Impression: HTN (hypertension) Additional Impression: Anxiety Disposition: HOME, SELF-CARE Condition: Improved Departure-Patient Inst. Decision time for Depature: 20:45 Referrals: RENÉ GR MD, WILLIAM J DO (PCP/Family) Primary Care Physician Patient Instructions: Anxiety, Adult (DC), High Blood Pressure (DC) Add. Discharge Instructions: CONTINUE ALL MEDICATIONS PRESCRIBED FOLLOW UP WITH DR. WILSON AND DR. GR FOR FURTHER CARE All discharge instructions reviewed with patient and/or family. Voiced understanding. BAL SHIPMAN DO March 26, 2023 20:39
[2023-03-26 21:00] VITALS: BP 132/84
== END 2023-03-26 21:05 | disposition home or self-care (01) ==
LOC: EDUNIT# 19:34 → ER 19:36
DX: I10 Essential (primary) hypertension (principal); F41.9 Anxiety disorder, unspecified; Z95.0 Presence of cardiac pacemaker
CPT/HCPCS: 36415; 71045; 80053; 82550; 83735; 83874; 83880; 84484; 85025; 85379; 85610; 85730; 93005; 93041

== ENCOUNTER 2023-04-03 13:51 | Outpatient (RCR) | payer MEDICARE, OTHER | END 2023-04-03 17:00 | disposition home or self-care (01) | PROVIDERS: ATTEND Internal Medicine | DX: M47.817 Spondylosis without myelopathy or radiculopathy, lumbosacral region (principal) ==

== ENCOUNTER → 2023-05-14 | Outpatient (CLI) | payer MEDICARE, OTHER ==
--- NOTE | 2023-05-14 16:04 | Diagnostic Imaging Report ---
INDICATION: Routine screening. COMPARISON: 02/01/2021 and 12/21/2019. TECHNIQUE: 2D and 3D bilateral screening mammography was performed with CAD. FINDINGS: Scattered fibroglandular densities are identified bilaterally. The parenchymal pattern is stable. No mass or malignant-appearing microcalcifications are seen. The pacemaker battery pack overlies the left axilla. The right axilla is unremarkable. IMPRESSION: No mammographic features suspicious for malignancy are identified. ACR BI-RADS Category 1: Negative. Result letter will be mailed to the patient. Note: At least 10% of breast cancer is not imaged by mammography. Dictated by: Dictated on workstation # [id number]
== END ==
LOC: RAD 13:06
PROVIDERS: ATTEND Internal Medicine
DX: Z12.31 Encounter for screening mammogram for malignant neoplasm of breast (principal)
CPT/HCPCS: 77063; 77067

== ENCOUNTER 2023-05-17 21:14 | Emergency (ER) | payer MEDICARE, OTHER ==
[~2023-05-17] VITALS: Ht 65 cm; Wt 60.0 kg
[2023-05-17] MEDS ORDERED: fentaNYL INJ 100 MCG/2 ML AMP IM ONE (22:00)
[2023-05-17] MEDS ORDERED: ONDANSETRON 4 MG (ZOFRAN) ORAL DISSOLVE TAB SL ONE (22:00)
--- NOTE | 2023-05-17 22:02 | ED General ---
General Chief Complaint: Post OP Complications/Pain Stated Complaint: PAIN MEDICATION AFTER SURGERY NOT OFFERING RELIEF Nursing Triage Note: Pt stated had sx at [facility] on friday (may 16) on R ft. Pt stated pain medicaiton that was given is not helping with the pain today. Pt taking hydrocod 5-325 Q3hrs, Pt said that usually takes 1 mg of xanax daily, but has reduce it to .5mg at morning. Pt unsure if that causing her to be anxious and making her unable to sleep. Source of Information: Patient, Family Exam Limitations: No Limitations History of Present Illness Date Seen by Provider: May 17, 2023 Time Seen by Provider: 21:50 Initial Comments This 77-year-old woman presents to the emergency room with complaints of uncontrolled postoperative pain in the right foot. She had surgery to correct hammertoes on May 16. She has pins in the second and third toe and had a plate placed at the right great toe. Pain has been uncontrolled despite taking hydrocodone up to every 3 hours. The dressing is very tight. She also had bleeding through the dressing yesterday and today. She was advised by her surgical team to leave the dressing intact until her follow-up visit on Friday, 2 days from now. She takes Eliquis because of atrial fibrillation. Her surgeon is Dr. Noriega at [facility]. Her PCP is Dr. Dunn. Allergies and Home Medications Allergies Coded Allergies: Sulfa (Sulfonamide Antibiotics) (Verified Allergy, Severe, HIVES, 11/14/17) Tetracyclines (Verified Allergy, Unknown, HIVES, 06/21/18) amoxicillin (Verified Allergy, Unknown, hives, 11/09/16) clavulanic acid (Verified Allergy, Unknown, hives, 11/09/16) penicillin G (Verified Allergy, Unknown, HIVES, 06/21/18) Patient Home Medication List Home Medication List Reviewed: Yes Acetaminophen/Diphenhydramine (Tylenol Pm Ex-Strength Caplet) 1 Each Tablet, 1 TAB PO HS, (Reported) Entered as Reported by: MUNIRA SRIVASTAVA on 12/03/17 1235 Alprazolam (Alprazolam) 1 Mg Tablet, 1 MG PO BID, (Reported) Entered as Reported by: MUNIRA SRIVASTAVA on 02/21/16 1039 Apixaban (Eliquis) 5 Mg Tablet, 5 MG PO BID, (Reported) Entered as Reported by: NAIF CONNOLLY on 02/20/16 1845 Buspirone HCl (Buspirone HCl) 10 Mg Tablet, 10 MG PO BID, (Reported) Entered as Reported by: MUNIRA SRIVASTAVA on 09/23/17 0916 Carvedilol (Carvedilol) 6.25 Mg Tablet, 6.25 MG PO BID, (Reported) Entered as Reported by: MUNIRA SRIVASTAVA on 10/27/19 1416 Furosemide (Furosemide) 40 Mg Tablet, 40 MG PO DAILY Prescribed by: RENÉ GR on 10/29/19 1124 Levocetirizine Dihydrochloride (Levocetirizine Dihydrochloride) 5 Mg Tablet, 5 MG PO DAILY, (Reported) Entered as Reported by: MUNIRA SRIVASTAVA on 06/07/19 1051 Lisinopril (Lisinopril) 10 Mg Tablet, 10 MG PO DAILY, (Reported) Entered as Reported by: GIO MAGUIRE on 09/23/19 1335 Montelukast Sodium (Montelukast Sodium) 10 Mg Tablet, 10 MG PO HS, (Reported) Entered as Reported by: MUNIRA SRIVASTAVA on 06/07/19 1051 [place] 3 Polyunsat Fatty Acids (Fish Oil 1,000 mg Capsule) 1,000 Mg Cap, 1,000 MG PO BID, (Reported) Entered as Reported by: MUNIRA SRIVASTAVA on 10/27/19 1416 Omeprazole (Omeprazole) 40 Mg Capsule.dr, 40 MG PO DAILY, (Reported) Entered as Reported by: MUNIRA SRIVASTAVA on 09/23/17 0909 Potassium Chloride (Klor-Con M20) 20 Meq Tab.er.prt, 20 MEQ PO DAILY@0700 Prescribed by: RENÉ GR on 10/29/19 1124 Raloxifene HCl (Evista) 60 Mg Tablet, 60 MG PO DAILY, (Reported) Entered as Reported by: MARCELLE MENSAH on 10/27/19 1028 Sertraline HCl (Sertraline HCl) 50 Mg Tablet, 50 MG PO DAILY, (Reported) Entered as Reported by: MUNIRA SRIVASTAVA on 06/07/19 1051 Review of Systems Review of Systems Constitutional: no symptoms reported EENTM: no symptoms reported Respiratory: no symptoms reported Cardiovascular: see HPI Gastrointestinal: no symptoms reported Musculoskeletal: see HPI Skin: see HPI Psychiatric/Neurological: No Symptoms Reported Hematologic/Lymphatic: No Symptoms Reported Immunological/Allergic: no symptoms reported Past Ezqluei-Jfpqng-Olazwx Hx Patient Social History Tobacco Use?: No Use of E-Cig and/or Vaping dev: No Substance use?: No Alcohol Use?: No Pt feels they are or have been: No Immunizations Up To Date Tetanus Booster (TDap): Unknown PED Vaccines UTD: No First/Initial COVID19 Vaccinat: 2020 Second COVID19 Vaccination Tom: 2020 Third COVID19 Vaccination Date: 2021 Seasonal Allergies Seasonal Allergies: Yes Past Medical History Surgery/Hospitalization HX: pacemaker, Afib, back sx, bill knee replacement, appy, R ft Surgeries: Yes Appendectomy, Cardiac, Joint Replacement, Orthopedic, Pacemaker Respiratory: No Cardiac: Yes (AFIB/FLUTTER-- S/P CARDIVERSIONS AND PACEMAKER. 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 FIGUEROA--HIATAL HERNIA, GERD, HEMORRHOIDS) Gastroesophageal Reflux, Hemorrhoids Musculoskeletal: Yes Arthritis, Chronic Back Pain Endocrine: No HEENT: No (PARTIAL DENTURES) Cancer: No Psychosocial: Yes Anxiety, Depression Integumentary: No Blood Disorders: Yes (ANEMIA) Adverse Reaction/Blood Tranf: No Family Medical History Cardiovascular disease 19 FATHER (mi) Dementia 19 MOTHER Heart Disease SOCIAL HISTORY: PAST SURGICAL HISTORY: PT HAD LEXISCAN STRESS TEST 09/22/19 FOR COMPLAINT OF ONGOING SHORTNESS OF BREATH--EF 44%, LBBB, PACED RHYTHM, ABNORMAL STRESS TEST PT HAD CARDIAC CATH 09/23/[address] 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 PT ALSO HAD EGD + COLONOSCOPY BY DR. FIGUEROA 08/25/19 FOR ANEMIA--HIATAL HERNIA, GERD, HEMORRHOIDS. CARDIAC CATH 09/23/[address] GR: ANATOMY: Left Main is free of obstructive disease Left Anterior Descending has mild disease nonobstructive disease Left Circumflex has mild disease nonobstructive disease Right Coronory Artery has mild disease nonobstructive disease LV Gram is dilated with diffuse left ventricular hypokinesia estimated ejection fraction 30 percent CONCLUSION: 1. Severe nonischemic cardiomyopathy with ejection fraction 30 percent 2. Mild coronary artery disease nonobstructive disease DISCUSSION AND RECOMMENDATION: I will start on Lasix, continue to monitor tolerance and response, restart home medication. Physical Exam Vital Signs Vital Signs - First Documented 05/17/23 21:46 Temp 36.8 Pulse 71 Resp 16 B/P (MAP) 118/86 (97) Pulse Ox 97 Capillary Refill : Height, Weight, BMI Height: 5'4.00" Weight: 160lbs. 0.0oz. 72.540411xz; 142.00 BMI Method:Stated General Appearance: No Apparent Distress, WD/WN HEENT: Normal ENT Inspection Respiratory: Lungs Clear, Normal Breath Sounds Cardiovascular: Regular Rate, Rhythm, No Edema, No Murmur Extremity: Other (Right foot wrapped tightly in dressing. Pins are projecting from the second and third toes. Sensation and capillary refill intact in all toes. When dressing was removed significant edema was revealed. 2 large incisions on the dorsum of the foot were clean, dry, and intact. There is dried blood on the dressing.) Neurologic/Psychiatric: Alert, Oriented x3, No Motor/Sensory Deficits, Normal Mood/Affect Skin: Normal Color, Warm/Dry Progress/Results/Core Measures Suspected Sepsis SIRS Temperature: Pulse: 71 Respiratory Rate: 16 Blood Pressure 118 /86 Mean: 97 Results/Orders My Orders Orders - PATRIZIA TORRES MD Ondansetron Oral Dissolve Tab (Zofran (05/17/23 22:00) Fentanyl Inj (Sublimaze Injection) (05/17/23 22:00) Medications Given in ED Current Medications Medications Dose Ordered Sig/Rachel Route Start Time Stop Time Status Last Admin Dose Admin Fentanyl Citrate 75 mcg ONCE ONCE IM 05/17/23 22:00 05/17/23 22:02 DC 05/17/23 22:20 75 MCG Ondansetron HCl 4 mg ONCE ONCE SL 05/17/23 22:00 05/17/23 22:02 DC 05/17/23 22:15 4 MG Vital Signs/I&O 05/17/23 05/17/23 21:46 23:49 Temp 36.8 Pulse 71 72 Resp 16 18 B/P (MAP) 118/86 (97) 169/100 Pulse Ox 97 95 Capillary Refill : Blood Pressure Mean: 97 Progress Note : Progress Note On examination the dressing was extremely tight around the foot. Patient's reported that the surgeon had recommended that the dressing on the lateral aspect 1 or 2 inches to alleviate some tension. This was performed and patient did get some relief but still complained of notable pain of a burning and throbbing sensation on the medial aspect. With shared decision making, it was determined the dressing should be removed and replaced. Dressing was completely removed and patient had significant relief of her pain. She had also been treated with a fentanyl injection of 75 mcg shortly after arrival. Xeroform gauze and new gauze wrap dressing were applied. The third wrap was applied more tightly than the first 2. Patient and were instructed to remove the tight third wrap if severe pain returned and they felt the dressing was too tight. We discussed how to manage her pain better at home. I had suggested increasing the hydrocodone dose to 1.5 tabs every 3 hours or 2 tabs every 4 hours. See discharge instructions for further discussion. Departure Impression Primary Impression: Post-operative pain Disposition: 01 HOME, SELF-CARE Condition: Improved Departure-Patient Inst. Decision time for Depature: 23:40 Referrals: VALENCIA DUNN DO (PCP/Family) Primary Care Physician Patient Instructions: Postoperative Pain (DC) Add. Discharge Instructions: For increased pain may have been due to swelling and/or hematoma in your foot that caused the dressing to become too tight. You have 3 gauze rolls wrapped on your foot at this time. The top layer is tighter than the others. If the dressing seems to be too tight while you are at home, remove the top roll. Elevate your foot to the level of your heart is much as possible. When elevating your foot, be sure the foot is at the level of your knee or higher. Do not hang the foot below the level of the knee. If your current pain medication is insufficient, consider increasing to 1.5 tablets of hydrocodone every 3 hours. Alternatively, you could take 2 tablets every 4-6 hours. Monitor for sedation use higher doses of pain medications, especially in combination with Xanax. If you need help sleeping, melatonin purchased [id number] may be helpful in inducing sleep without causing excessive drowsiness. Please be aware melatonin has a tendency to cause vivid dreams. While you are taking hydrocodone, do not drive, operate machinery, or make important decisions. Hydrocodone may also cause constipation, so you may wish to use a stool softener such as Colace while on hydrocodone. If your pain is not controlled or you develop worsening symptoms please return to the emergency room. Check of the tips of your toes periodically to make sure you maintain feeling. The toes should be pink and jenn when touched. The blanched area should become pink again within 3 to 5 seconds after being touched. Call with questions or concerns. Follow postoperative instructions as provided by your surgeon. Copy Copies To 1: VALENCIA DUNN JOSHUA T MD May 17, 2023 22:02
[2023-05-17 23:49] VITALS: BP 169/100
== END 2023-05-17 23:49 | disposition home or self-care (01) ==
LOC: EDUNIT# 21:14 → ER 21:16
DX: G89.18 Other acute postprocedural pain (principal); M79.671 Pain in right foot; I48.91 Unspecified atrial fibrillation; Z79.01 Long term (current) use of anticoagulants; Z79.899 Other long term (current) drug therapy
CPT/HCPCS: 99284

== ENCOUNTER → 2023-09-03 | Outpatient (CLI) | payer MEDICARE, OTHER ==
[~2023-09-03] MED LIST changes: -MECL-149 PO; +MECL-291 PO; -RALO60TA PO; +RLX60T PO
--- NOTE | 2023-09-03 13:55 | Diagnostic Imaging Report ---
Indication: Pre-MRI screening. Time of Exam: 1:27 PM Correlation is made with prior chest from 03/26/2023. Heart size normal. There is a left subclavian cardiac pacemaker. No definite abandoned leads are identified. Lungs are clear. There is no effusion or pneumothorax. IMPRESSION: No evidence of abandoned leads. Dictated by: Dictated on workstation # [id number]
--- NOTE | 2023-09-03 16:05 | Diagnostic Imaging Report ---
PROCEDURE: MR imaging cervical spine without contrast. TECHNIQUE: Multiplanar, multisequence MR imaging of the cervical spine was performed without contrast. INDICATION: Neck pain. No priors for direct comparison study, correlated with soft tissue neck CT 06/04/2018. Cervical spinal cord has a normal volume morphology and normal signal intensity cervical vertebral statures stable and unremarkable. There is a minute retrolisthesis grade 1 C4 on C5 of about 2 mm, this is unchanged. No acute bony pathology. No Modic endplate changes. No marrow edema. The craniocervical relationship in the C1-C2 level normal. The C2-C3 level and discs normal. No stenosis. C3-C4: Mild disc desiccation, stature loss present. Some mild facet arthrosis and uncovertebral joint spurring results in mild right greater than left foraminal narrowing. No canal stenosis. C4-C5: Endplate spurs efface and indent the ventral thecal sac. There is left sided uncovertebral joint spurring and disc bulge resulting in moderate to severe left foraminal narrowing and more mild to moderate right foraminal stenosis. There is mild central canal stenosis. C5-C6: Posterior osteophyte disc material effaces the ventral thecal sac. There is mild left greater than right foraminal narrowing and no substantial canal stenosis. C6-C7: Uncovertebral joint spurring and endplate osteophytes with facet arthrosis result in moderate left and moderate to severe right foraminal stenosis with mild to moderate central canal narrowing. C7-T1: This level and disc unremarkable. There is no stenosis. IMPRESSION: Degenerative disc endplate and facet disease results in multilevel foraminal greater than canal stenoses as above with stable alignment and normal spinal cord with no acute-appearing bony pathology. Dictated by: Dictated on workstation # [id number]
== END ==
LOC: RAD 13:07
PROVIDERS: ATTEND Anesthesiology Pain Medicine
DX: M79.12 Myalgia of auxiliary muscles, head and neck (principal); M47.812 Spondylosis without myelopathy or radiculopathy, cervical region; M48.02 Spinal stenosis, cervical region
CPT/HCPCS: 71045; 72141

== ENCOUNTER 2023-10-11 16:52 | Emergency (ER) | payer MEDICARE, OTHER ==
[~2023-10-11] VITALS: Ht 160 cm; Wt 68.0 kg
[2023-10-11] MEDS ORDERED: ONDANSETRON 4 MG ORAL DISSOLVE TABLET PO STA (17:17)
--- NOTE | 2023-10-11 17:20 | ED General ---
General Stated Complaint: STUFFY NOSE/NECK PAIN Source of Information: Patient Exam Limitations: No Limitations History of Present Illness Date Seen by Provider: Oct 11, 2023 Time Seen by Provider: 17:04 Initial Comments Patient is a 78-year-old female who presents to the emergency room with sinus congestion, nasal stuffiness, neck pain, back pain, headache. Symptom onset within the last 24 hours. She has a history of chronic pain, sees a pain management physician for baclofen. She has chronic tremors. Hypertension/CAD/Afib. She has rods and screws in her back. Always has a certain amount of pain in her back and neck. She is asking for a "pain shot". Timing/Duration: 24 Hours Severity: Mild Associated Systoms: Cough (mild), Malaise, Other (headache; neck and back pain) Allergies and Home Medications Allergies Coded Allergies: Sulfa (Sulfonamide Antibiotics) (Verified Allergy, Severe, HIVES, 11/14/17) Tetracyclines (Verified Allergy, Unknown, HIVES, 06/21/18) amoxicillin (Verified Allergy, Unknown, hives, 11/09/16) clavulanic acid (Verified Allergy, Unknown, hives, 11/09/16) penicillin G (Verified Allergy, Unknown, HIVES, 06/21/18) Patient Home Medication List Home Medication List Reviewed: Yes Acetaminophen/Diphenhydramine (Tylenol Pm Ex-Strength Caplet) 1 Each Tablet, 1 TAB PO HS, (Reported) Entered as Reported by: MUNIRA SRIVASTAVA on 12/03/17 1235 Alprazolam (Alprazolam) 1 Mg Tablet, 1 MG PO BID, (Reported) Entered as Reported by: MUNIRA SRIVASTAVA on 02/21/16 1039 Apixaban (Eliquis) 5 Mg Tablet, 5 MG PO BID, (Reported) Entered as Reported by: NAIF CONNOLLY on 02/20/16 1845 Apixaban (Eliquis) 2.5 Mg Tablet, 2.5 MG PO BID Prescribed by: FEROZ VELIZ on 10/11/23 1758 Buspirone HCl (Buspirone HCl) 10 Mg Tablet, 10 MG PO BID, (Reported) Entered as Reported by: MUNIRA SRIVASTAVA on 09/23/17 0916 Carvedilol (Carvedilol) 6.25 Mg Tablet, 6.25 MG PO BID, (Reported) Entered as Reported by: MUNIRA SRIVASTAVA on 10/27/19 1416 Furosemide (Furosemide) 40 Mg Tablet, 40 MG PO DAILY Prescribed by: RENÉ GR on 10/29/19 1124 Levocetirizine Dihydrochloride (Levocetirizine Dihydrochloride) 5 Mg Tablet, 5 MG PO DAILY, (Reported) Entered as Reported by: MUNIRA SRIVASTAVA on 06/07/19 1051 Lisinopril (Lisinopril) 10 Mg Tablet, 10 MG PO DAILY, (Reported) Entered as Reported by: GIO MAGUIRE on 09/23/19 1335 Montelukast Sodium (Montelukast Sodium) 10 Mg Tablet, 10 MG PO HS, (Reported) Entered as Reported by: MUNIRA SRIVASTAVA on 06/07/19 1051 Nirmatrelvir/Ritonavir (Paxlovid 150-100 mg Pack (Eua)) 150 Mg-100 Mg Tablet, 1 EACH PO BID Prescribed by: FEROZ VELIZ on 10/11/23 1757 Udell 3 Polyunsat Fatty Acids (Fish Oil 1,000 mg Capsule) 1,000 Mg Cap, 1,000 MG PO BID, (Reported) Entered as Reported by: MUNIRA SRIVASTAVA on 10/27/19 1416 Omeprazole (Omeprazole) 40 Mg Capsule.dr, 40 MG PO DAILY, (Reported) Entered as Reported by: MUNIRA SRIVASTAVA on 09/23/17 0909 Potassium Chloride (Klor-Con M20) 20 Meq Tab.er.prt, 20 MEQ PO DAILY@0700 Prescribed by: RENÉ GR on 10/29/19 1124 Raloxifene HCl (Evista) 60 Mg Tablet, 60 MG PO DAILY, (Reported) Entered as Reported by: MARCELLE MENSAH on 10/27/19 1028 Sertraline HCl (Sertraline HCl) 50 Mg Tablet, 50 MG PO DAILY, (Reported) Entered as Reported by: MUNIRA SRIVASTAVA on 06/07/19 1051 Review of Systems Review of Systems Constitutional: see HPI, malaise EENTM: nose congestion Respiratory: cough; No short of breath Cardiovascular: no symptoms reported Gastrointestinal: no symptoms reported Genitourinary: no symptoms reported Musculoskeletal: back pain, neck pain Skin: no symptoms reported Psychiatric/Neurological: Headache Past Hymoocz-Gfsjuk-Egudsj Hx Immunizations Up To Date Tetanus Booster (TDap): Unknown PED Vaccines UTD: No First/Initial COVID19 Vaccinat: 2020 Second COVID19 Vaccination Tom: 2020 Third COVID19 Vaccination Date: 2021 Seasonal Allergies Seasonal Allergies: Yes Past Medical History Surgery/Hospitalization HX: pacemaker, Afib, back sx, bill knee replacement, appy, R ft Surgeries: Yes Appendectomy, Cardiac, Joint Replacement, Orthopedic, Pacemaker Respiratory: No Cardiac: Yes (AFIB/FLUTTER-- S/P CARDIVERSIONS AND PACEMAKER. 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 FIGUEROA--HIATAL HERNIA, [address], HEMORRHOIDS) Gastroesophageal Reflux, Hemorrhoids Musculoskeletal: Yes Arthritis, Chronic Back Pain Endocrine: No HEENT: No (PARTIAL DENTURES) Cancer: No Psychosocial: Yes Anxiety, Depression Integumentary: No Blood Disorders: Yes (ANEMIA) Adverse Reaction/Blood Tranf: No Family Medical History Cardiovascular disease 19 FATHER (mi) Dementia 19 MOTHER Heart Disease SOCIAL HISTORY: PAST SURGICAL HISTORY: PT HAD LEXISCAN STRESS TEST 09/22/19 FOR COMPLAINT OF ONGOING SHORTNESS OF BREATH--EF 44%, LBBB, PACED RHYTHM, ABNORMAL STRESS TEST PT HAD CARDIAC CATH 09/23/[address] 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 PT ALSO HAD EGD + COLONOSCOPY BY DR. FIGUEROA 08/25/19 FOR ANEMIA--HIATAL HERNIA, GERD, HEMORRHOIDS. CARDIAC CATH 09/23/[address] GR: ANATOMY: Left Main is free of obstructive disease Left Anterior Descending has mild disease nonobstructive disease Left Circumflex has mild disease nonobstructive disease Right Coronory Artery has mild disease nonobstructive disease LV Gram is dilated with diffuse left ventricular hypokinesia estimated ejection fraction 30 percent CONCLUSION: 1. Severe nonischemic cardiomyopathy with ejection fraction 30 percent 2. Mild coronary artery disease nonobstructive disease DISCUSSION AND RECOMMENDATION: I will start on Lasix, continue to monitor tolerance and response, restart home medication. Physical Exam Vital Signs Vital Signs - First Documented 10/11/23 17:05 Temp 38.1 Pulse 71 Resp 20 B/P (MAP) 149/107 (121) Pulse Ox 95 O2 Delivery Room Air Capillary Refill : Height, Weight, BMI Height: 5'4.00" Weight: 160lbs. 0.0oz. [id number]; 142.00 BMI Method:Stated General Appearance: No Apparent Distress, WD/WN, Other Eyes: Bilateral Eye Normal Inspection, Bilateral Eye PERRL, Bilateral Eye EOMI HEENT: Pharynx Normal, Moist Mucous Membranes Neck: Full Range of Motion, Other (no midline point tenderness) Respiratory: Lungs Clear, Normal Breath Sounds, No Accessory Muscle Use, No Respiratory Distress Cardiovascular: Regular Rate, Rhythm, Normal Peripheral Pulses Gastrointestinal: Non Tender, Soft Back: Other (no midline vertebral tenderness or CVA tenderness) Extremity: Normal Inspection, Normal Range of Motion, Non Tender Neurologic/Psychiatric: Alert, Oriented x3, No Motor/Sensory Deficits, Normal 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, 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 Norm as Tested, Other (patient has pre-existing tremor) Skin: Normal Color, Warm/Dry Progress/Results/Core Measures Suspected Sepsis SIRS Temperature: Pulse: Respiratory Rate: Blood Pressure / Mean: Results/Orders Lab Results Laboratory Tests Test 10/11/23 17:16 Range/Units Influenza Type A (RT-PCR) Not Detected Not Detecte Influenza Type B (RT-PCR) Not Detected Not Detecte SARS-CoV-2 RNA (RT-PCR) Detected H Not Detecte My Orders Orders - FEROZ VELIZ MD Covid 19 Inhouse Test (10/11/23 17:17) Influenza A And B By Pcr (10/11/23 17:17) Ondansetron Oral Dissolve Tab (Ondanset (10/11/23 17:17) Ketorolac Injection (Ketorolac Injection (10/11/23 17:30) Medications Given in ED Vital Signs/I&O 10/11/23 10/11/23 17:05 18:32 Temp 38.1 Pulse 71 70 Resp 20 20 B/P (MAP) 149/107 (121) 121/71 Pulse Ox 95 95 O2 Delivery Room Air Room Air Capillary Refill : Progress Note : Time: 17:38 Progress Note Patient seen and evaluated by anne porter today includes history and physical exam. Pertinent physical exam findings include WDWN elderly female. Stable VS. Temp 100.6. Non toxic in appearance. Moist oral mucosa. Heart is regular, lungs are c lear. Abd is benign. No focal neuro deficits. No acute tenderness on palpation of the cervical/thoracic spine. Ddx includes viral syndrome/covid, exacerbation of chronic pain, tension headache Patient is treated in the Emergency Department with 30mg of Toradol IM. She has improvement in her headache. Her covid test returned positive. Patient is offered Paxlovid as she is less than 24h into symptoms and would be higher risk for worsening infection due to advanced age and comorbidities. She is agreeable to the paxlovid. Will adjust her dose of eliquis to 2.5mg bid for the recommended 8 days while she completes this course based on guidelines. She has no concerning findings in history or on physical exam that would indicated the need for labs/imaging. She is comfortable with the plan of care. Recommended as well, quarantine at home for the 5 day course, then out with a mask for the following 5 days. Departure Impression Primary Impression: Chronic pain Qualified Codes: G89.4 - Chronic pain syndrome Additional Impression: COVID-19 Disposition: 01 HOME, SELF-CARE Condition: Stable Departure-Patient Inst. Decision time for Depature: 17:39 Referrals: VALENCIA WILSON DO (PCP/Family) Primary Care Physician Patient Instructions: COVID-19 Home Care/Discharge Add. Discharge Instructions: Drink plenty of fluids to stay well-hydrated. You can take [id number] Mucinex for congestion, please follow packaging instructions. You will need to quarantine at home for 5 days. Following that please wear a mask out in public for the following 5 days. Paxlovid as directed on packaging. While taking Paxlovid decrease your dose of Eliquis (blood thinner) to 2.5mg twice a day for a total of 8 days. Then resume the 5mg. Continue home medications as prescribed. Return to the emergency department for any new, concerning or emergent complaints. Scripts Apixaban (Eliquis) 2.5 Mg Tablet 2.5 MG PO BID, #16 TAB Prov: FEROZ VELIZ MD 10/11/23 Nirmatrelvir/Ritonavir (Paxlovid 150-100 mg Pack (Eua)) 150 Mg-100 Mg Tablet 1 EACH PO BID for 5 Days, #1 UNIT Prov: FEROZ VELIZ MD 10/11/23 Copy Copies To 1: VALENCIA WILSON KATHRYN M MD Oct 11, 2023 17:20
[2023-10-11] MEDS ORDERED: KETOROLAC INJ 30 MG/ML VIAL IM ONE (17:30)
[2023-10-11] MEDS ORDERED: NIRM1TAB5 PO (17:57)
[2023-10-11] MEDS ORDERED: APIX2.5T PO (17:58)
[2023-10-11 18:32] VITALS: BP 121/71
== END 2023-10-11 18:32 | disposition home or self-care (01) ==
LOC: EDUNIT# 16:52 → ER 16:54
DX: U07.1 COVID-19 (principal); R09.81 Nasal congestion; G89.29 Other chronic pain; R51.9 Headache, unspecified
CPT/HCPCS: 87636; 99284